=== PATIENT | female | born 1985 | race Caucasian/White ===

== ENCOUNTER 2021-11-28 19:10 | Emergency (ER) | payer OTHER, SELFPAY ==
[2021-11-28] VITALS (7 sets, daily range): BP systolic 115–141; BP diastolic 79–96; PULSE 85–126; RESP 14–16; TEMP 36.7; O2SAT 99–100; BMI 32.0
--- NOTE | 2021-11-28 20:11 | ED.ARRPALP ---
HPI - Arrhythmia/Palpitations General Chief Complaint: Unspecified Complaint, Adult Stated Complaint: SHORTNESS OF BREATH,HIGH HEART RATE Time Seen by Provider: 11/28/21 20:03 History of Present Illness HPI narrative: 36-year-old woman presenting to the emergency department with concern of rapid heart rate and headache. Does have a history of migraines and noted having had an aura this morning. Admittedly does have pretty bad headache right now. This evening was biking down to the [employer] and then climbed couple flights of stairs. Was sitting there and noted that her wearable beeped indicating her heart rate had been elevated over 120s in spite of being at rest. Around this time shows also noting herself to feel tightness in her chest and headache as well. No loss of sensation or focal weakness. No fever no cough or cold symptoms recently. No recent leg pain. Not actually with chest pain and the discomfort is not really pleuritic. Her heart rate has continued elevated on presentation to the emergency department. Initial EKG has been done by the time I it to this patient and noting sinus tachycardia 107. Do not see ST elevations or depressions/ischemic changes. She acknowledges that when she might be feeling is a panic attack but she never had 1 before. Seems to be fairly calm and believe she was at the time as well. Does not historically struggle with exercise intolerance. No family history of coagulopathy or dysrhythmias or sudden cardiac . Related Data Home Medications Medication Instructions Recorded Confirmed aspirin 81 mg capsule 81 mg PO QDAY 12/13/21 12/13/21 cetirizine 10 mg capsule (Zyrtec) 10 mg PO QDAY PRN 12/13/21 12/13/21 levonorgestrel 17.5 mcg/24 hrs 1 intrauterine ONCE 12/13/21 12/13/21 (5yrs) 19.5mg intrauterine device Previous Rx's Medication Instructions Recorded nortriptyline 10 mg capsule 30 mg PO QPM #270 caps 11/07/21 Allergies Allergy/AdvReac Type Severity Reaction Status Date / Time loratadine [From Claritin] AdvReac stomachache Verified 12/13/21 13:13 augmentin AdvReac Uncoded 12/13/21 13:13 Review of Systems Status of ROS: Reports: 10 or more systems reviewed and unremarkable except as noted in History and [facility] History Depression History of gestational hypertension History of pre-eclampsia History of spontaneous (2017) Hyperlipidemia Migraine with aura Obesity (BMI 30.0-34.9) Scleroderma Surgical History History of History of laparoscopic cholecystectomy (2012) Social History Narrative: . Master's degree education. Non smoker. Denies alcohol use or recreational drug use. No concerns with safety or abuse. Smoking Status: Never smoker How often do you have a drink containing alcohol: monthly or less AUDIT-C Alcohol total score: 1 Non-prescribed substance use: denies use Little interest or pleasure in doing things: not at all Feeling down, depressed, or hopeless: not at all Exam Narrative: Exam Narrative: A pleasant. NAD. Breathing easily. Cranial nerves 2-12 intact. Head is atraumatic. Extremities are well perfused. Moving all extremities without difficulty. Lungs are clear equal expansion excursion Cardiovascular initially with elevated heart rate. Regular rhythm no murmurs rubs or gallops. Skin is warm and dry Const: Vital Signs, click to edit/add: Vital Signs - 24 hr 11/28/21 19:58 11/28/21 23:40 11/28/21 22:00 Temperature 98.1 F Pulse Rate [Left P ulse Oximeter] 126 H 85 90 Respiratory Rate 16 14 14 Blood Pressure [Ri ght Upper Arm] 124/87 119/82 141/90 H Pulse Oximetry 99 99 100 Oxygen Delivery Me thod Room Air 11/28/21 22:20 11/28/21 22:40 11/28/21 23:00 Temperature Pulse Rate [Left P ulse Oximeter] 87 99 93 Respiratory Rate 14 14 14 Blood Pressure [Ri ght Upper Arm] 134/89 126/89 125/96 H Pulse Oximetry 99 99 100 Oxygen Delivery Me thod Room Air 11/28/21 23:20 11/28/21 23:40 11/29/21 00:00 Temperature Pulse Rate [Left P ulse Oximeter] 89 91 84 Respiratory Rate 14 14 14 Blood Pressure [Ri ght Upper Arm] 115/79 119/82 117/87 Pulse Oximetry 99 99 99 Oxygen Delivery Me thod Course Course Hospital Course: She would like treatment for her headache. Initiating IV fluids diphenhydramine and ketorolac Reevaluation(s) Reevaluation #1: Markedly improved and feels can return home. Vital Signs Vital signs: Initial Vital Signs Temperature 98.1 F 11/28/21 19:58 Temperature Source Temporal Artery Scan 11/28/21 19:58 Pulse Rate 126 H 11/28/21 19:58 Respiratory Rate 16 11/28/21 19:58 Blood Pressure 124/87 11/28/21 19:58 Blood Pressure Mean 99 11/28/21 19:58 Blood Pressure Position Sitting 11/28/21 19:58 Pulse Oximetry 99 11/28/21 19:58 Oxygen Delivery Method 11/28/21 19:58 Vital Signs Temperature 98.1 F 11/28/21 19:58 Pulse Rate 126 H 11/28/21 19:58 Respiratory Rate 16 11/28/21 19:58 Blood Pressure 124/87 11/28/21 19:58 Pulse Oximetry 99 11/28/21 19:58 Oxygen Delivery Method 11/28/21 19:58 Temperature 98.1 F 11/28/21 19:58 Pulse Rate 84 11/29/21 00:00 Respiratory Rate 14 11/29/21 00:00 Blood Pressure 117/87 11/29/21 00:00 Pulse Oximetry 99 11/29/21 00:00 Oxygen Delivery Method 11/28/21 22:20 MDM - Arrhythmia/Palpitations MDM Narrative Medical decision making narrative: Certainly could have been cardiac event. supraventricular tachycardia perhaps. No events during monitoring here. Medical Records Attestation: I reviewed the patient's medical records. Lab Data Attestation: I reviewed the patient's lab results. Labs: Lab Results 11/28/21 11/28/21 11/28/21 Range/Units 22:38 22:38 22:42 WBC 8.93 (4.50-11.00) K/uL RBC 4.88 (4.00-5.20) m/uL Hgb 14.7 (12.0-16.0) gm/dL Hct 44.9 (33.0-51.0) % MCV 92 (80-100) fL MCH 30 (26-34) pg MCHC 33 (32-36) gm/dL RDW Coeff of Timothy 11.9 (11.5-15.5) % Plt Count 238 (140-440) K/uL Neut % (Auto) 66.9 (42.0-72.0) % Lymph % (Auto) 24.7 (20-44) % Dade % (Auto) 6.4 (0.0-11.0) % Eos % (Auto) 1.3 (0.0-7.0) % Baso % (Auto) 0.4 (0.0-3.0) % Neut # (Auto) 5.96 (1.7-7.0) K/uL Lymph # (Auto) 2.21 (0.90-2.90) K/uL Dade # (Auto) 0.60 (0.00-0.90) K/UL Eos # (Auto) 0.12 (0.00-0.50) K/uL Baso # (Auto) 0.04 (0.00-0.30) K/uL Abs Immat Gran (auto) 0.03 (0.00-0.30) K/uL D-Dimer Quant (PE/DVT) < 0.27 (0.00-0.50) ug/ml Sodium (135-149) mmol/L Potassium (3.6-5.1) mmol/L Chloride (96-114) mmol/L Carbon Dioxide (20-32) mmol/L BUN (5-24) mg/dL Creatinine (0.5-1.5) mg/dL Estimated Creat Clear Estimated GFR ml/min Glucose (60-115) mg/dL Calcium (8.4-10.6) mg/dL Troponin I (0.01-0.04) ng/mL C-Reactive Protein (0.5-1.0) mg/dL NT-Pro-B Natriuret Pep (0-125) PG/mL POC Troponin I 0.00 L (0.01-0.04) ng/ml 11/28/21 Range/Units 22:42 WBC (4.50-11.00) K/uL RBC (4.00-5.20) m/uL Hgb (12.0-16.0) gm/dL Hct (33.0-51.0) % MCV (80-100) fL MCH (26-34) pg MCHC (32-36) gm/dL RDW Coeff of Timothy (11.5-15.5) % Plt Count (140-440) K/uL Neut % (Auto) (42.0-72.0) % Lymph % (Auto) (20-44) % Dade % (Auto) (0.0-11.0) % Eos % (Auto) (0.0-7.0) % Baso % (Auto) (0.0-3.0) % Neut # (Auto) (1.7-7.0) K/uL Lymph # (Auto) (0.90-2.90) K/uL Dade # (Auto) (0.00-0.90) K/UL Eos # (Auto) (0.00-0.50) K/uL Baso # (Auto) (0.00-0.30) K/uL Abs Immat Gran (auto) (0.00-0.30) K/uL D-Dimer Quant (PE/DVT) (0.00-0.50) ug/ml Sodium 141 (135-149) mmol/L Potassium 4.4 (3.6-5.1) mmol/L Chloride 106 (96-114) mmol/L Carbon Dioxide 29 (20-32) mmol/L BUN 13 (5-24) mg/dL Creatinine 0.7 (0.5-1.5) mg/dL Estimated Creat Clear 107.01 Estimated GFR 114 ml/min Glucose 84 (60-115) mg/dL Calcium 9.5 (8.4-10.6) mg/dL Troponin I < 0.01 L (0.01-0.04) ng/mL C-Reactive Protein < 0.5 L (0.5-1.0) mg/dL NT-Pro-B Natriuret Pep 32 (0-125) PG/mL POC Troponin I (0.01-0.04) ng/ml ECG Data Attestation: I personally reviewed and interpreted this ECG as follows: (Sinus tachycardia at a rate of 107) Discharge Plan Discharge Clinical Impression: Migraine with aura, Tachycardia Patient Disposition: Home w/ Parent or Adult Condition: Improved Additional Instructions: Continue to hydrate and exercise. Get regular and quality sleep. Follow-up for heart rate that appears to be in the 90s more often than not. Return otherwise for worsening lightheadedness, intensifying chest pain, increasing shortness of breath. Prescriptions: No Action levonorgestrel 17.5 mcg/24 hrs (5 yrs) 19.5 mg intrauterine device 1 intrauterine ONCE aspirin 81 mg capsule 81 mg PO QDAY Zyrtec 10 mg capsule 10 mg PO QDAY PRN nortriptyline 10 mg capsule 30 mg PO QPM Qty: 270 1RF Follow Up/Referrals: Janay Qureshi MD [Primary Care Provider] - Stand Alone Forms: [employer] Info Instructions
[2021-11-28 22:49] LABS: Basophils Absolute Auto 0.04 K/uL (0.00-0.30); Basophils Percent Auto 0.4 % (0.0-3.0); Eosinophils Absolute Auto 0.12 K/uL (0.00-0.50); Eosinophils Percent Auto 1.3 % (0.0-7.0); Hematocrit 44.9 % (33.0-51.0); Hemoglobin* 14.7 gm/dL (12.0-16.0); Immature Granulocytes Abs Auto 0.03 K/uL (0.00-0.30); Lymphocytes Absolute Auto 2.21 K/uL (0.90-2.90); Lymphocytes Percent Auto 24.7 % (20-44); Mean Corpuscular HGB Conc 33 gm/dL (32-36); Mean Corpuscular Hemoglobin 30 pg (26-34); Mean Corpuscular Volume 92 fL (80-100); Monocytes Percent Auto 6.4 % (0.0-11.0); Neutrophils Absolute Auto 5.96 K/uL (1.7-7.0); Neutrophils Percent Auto 66.9 % (42.0-72.0); Platelet Count* 238 K/uL (140-440); RDW Coefficient of Variation % 11.9 % (11.5-15.5); Red Blood Count 4.88 m/uL (4.00-5.20); White Blood Count* 8.93 K/uL (4.50-11.00)
[2021-11-28] MEDS: diphenhydrAMINE 50 MG/ML inj 25 MG IVP (22:50)
[2021-11-28] MEDS: KETOROLAC 30 MG/ML inj IVP (22:50)
[2021-11-28] MEDS: 0.9 % SODIUM CHLORIDE 1000 ml 1,000 ML IV (22:50)
[2021-11-28 22:51] LABS: Slide Review Reflex No
[2021-11-28 23:02] LABS: Chloride* 106 mmol/L (96-114); Potassium* 4.4 mmol/L (3.6-5.1); Sodium* 141 mmol/L (135-149)
[2021-11-28 23:05] LABS: Blood Urea Nitrogen* 13 mg/dL (5-24); Carbon Dioxide* 29 mmol/L (20-32); Creatinine* 0.7 mg/dL (0.5-1.5); Est. Creatinine Clearance* 107.01; Estimated Glomerular Filt Rate 114 ml/min; Glucose* 84 mg/dL (60-115)
[2021-11-28 23:06] LABS: Calcium* 9.5 mg/dL (8.4-10.6)
[2021-11-28 23:08] LABS: D Dimer Quantitative* < 0.27 ug/ml (0.00-0.50)
[2021-11-28 23:15] LABS: NT Pro B Type NatriureticPept* 32 PG/mL (0-125)
[2021-11-28 23:26] LABS: C Reactive Protein* < 0.5 mg/dL (0.5-1.0); Troponin I* < 0.01 ng/mL (0.01-0.04)
[2021-11-29] VITALS: BP 117/87; PULSE 84; RESP 14; O2SAT 99
== END 2021-11-29 00:10 | disposition home or self-care (01) ==
PROVIDERS: Emergency Provider Family Medicine; PCP Family Medicine
DX: G43.119 Migraine with aura, intractable, without status migrainosus (principal); R00.0 Tachycardia, unspecified
CPT/HCPCS: 36415; 80048; 83880; 84484; 85025; 85379; 86140; 93005; 96374; 96375; 99283; 99284; J1200; J1885; J7030

== ENCOUNTER 2021-12-18 09:32 | Outpatient (CLI) | payer OTHER, SELFPAY ==
[2021-12-18 12:44] LABS: Albumin* 4.6 g/dL (3.3-5.0)
[2021-12-18 12:47] LABS: Alanine Aminotransferase* 20 U/L (4-35); Alkaline Phosphatase* 104 U/L (40-150); Aspartate Amino Transferase* 20 U/L (12-35); Bilirubin Direct* 0.3 mg/dL (0.0-0.5); Bilirubin Total* 0.7 mg/dL (0.1-1.5); Cholesterol* 243 mg/dL (90-199); Total Protein* 7.3 g/dL (6.0-8.3)
[2021-12-18 12:48] LABS: HDL Cholesterol* 36 mg/dL (>=50); LDL Cholesterol Calculated 167 mg/dL (<100); Triglycerides* 199 mg/dL (40-149)
[2021-12-18 12:50] LABS: C Reactive Protein* 0.6 mg/dL (0.5-1.0)
[2021-12-18 12:53] LABS: Vitamin D 25 Hydroxy* 31 ng/mL (30-80)
[2021-12-18 13:11] LABS: Ferritin* 93.6 ng/mL (6.24-137.0)
[2021-12-18 22:35] LABS: Glucose* 97 mg/dL (60-115)
== END 2021-12-18 09:33 | disposition home or self-care (01) ==
PROVIDERS: Physician Assistant; PCP Family Medicine; Visit Provider Internal Medicine
DX: E78.5 Hyperlipidemia, unspecified (principal); R00.0 Tachycardia, unspecified; R52 Pain, unspecified; G43.109 Migraine with aura, not intractable, without status migrainosus
CPT/HCPCS: 80061; 80076; 82306; 82728; 82947; 84443; 86140

== ENCOUNTER 2023-05-23 07:50 | Outpatient (CLI) | payer BC, SELFPAY ==
--- OUTSIDE RECORDS SUMMARY | 2023-05-23 12:18 | XMS_ITS | Encounter Summary ---
Author Name Unknown Organization [place] Address [address] [place] [address] Care Team Providers Care Mechanical Adjuster Name Role Phone Susie Vogt MD Primary Care Provider + [phone] Devika Fleming MD Unavailable [phone] Devika Fleming MD Unavailable [phone] Encounter Details Date Type Department Care Team (Late st Contact Info) Description 04/10/2022 [facility] [place] Medical Advice [facility] Neurology Clinic [address]rd [place] [address] Devika Fleming MD [address] [place] [address] [id number] Social History Tobacco Use Types Packs/Day Years Used Date Smoking Tobacco: Never Smokeless Tobacco: Never Alcohol Use Standard Drinks/Week Comments Not Currently 0 (1 standard drink = 0.6 oz pur e alcohol) PHQ-2 Answer Date Recorded PHQ-2 Score 2 02/18/2022 Sex and Gender Information Value Date Recorded Sex Assigned at Female 02/16/2019 10:59 AM OBSTETRIC ANAESTHETIST Gender Identity Female 02/16/2019 10:59 AM OBSTETRIC ANAESTHETIST Sexual Orientation Straight 02/16/2019 10 :59 AM OBSTETRIC ANAESTHETIST documented as of this encounter Plan of Treatment Not on file documented as of this encounter Visit Diagnoses Not on filedocumented in this encounter Care Teams Mechanical Adjuster Relationship Specialty Start Date End Date Susie Vogt MD [facility] [address] [place] [address] PCP - General resources representative 12/29/18 Devika Fleming MD [address] [place] [address] Neurology 10/30/21 Devika Fleming MD [address] [place] [address] Assigned Neuroscience Provider 02/23/22 documented as of this encounter
--- OUTSIDE RECORDS SUMMARY | 2023-05-23 12:18 | XMS_ITS | Encounter Summary ---
Author Name Unknown Organization [place] Address [address] [place] [address] Care Team Providers Care Laborer Concrete Plant Name Role Phone Susie Vogt MD Primary Care Provider + [phone] Devika Fleming MD Unavailable [phone] Devika Fleming MD Unavailable [phone] Encounter Details Date Type Department Care Team (Late st Contact Info) Description 10/07/2021 [facility] Medical Advice Initial Department Lali Alonso Social History Tobacco Use Types Packs/Day Years Used Date Smoking Tobacco: Never Smokeless Tobacco: Never Alcohol Use Standard Drinks/Week Comments Not Currently 0 (1 standard drink = 0.6 oz pur e alcohol) PHQ-2 Answer Date Recorded PHQ-2 Score 2 02/22/2019 Sex and Gender Information Value Date Recorded Sex Assigned at Female 02/16/2019 10:59 AM INSURANCE JOB TITLES Gender Identity Female 02/16/2019 10:59 AM INSURANCE JOB TITLES Sexual Orientation Straight 02/16/2019 10 :59 AM INSURANCE JOB TITLES documented as of this encounter Plan of Treatment Not on file documented as of this encounter Visit Diagnoses Not on filedocumented in this encounter Care Teams Laborer Concrete Plant Relationship Specialty Start Date End Date Susie Vogt MD [facility] [address], [place] [address] PCP - General r programmer 12/29/18 Devika Fleming MD [address] [place] [address] Neurology 10/30/21 Devika Fleming MD [address] [place] [address] Assigned Neuroscience Provider 02/23/22 documented as of this encounter
--- OUTSIDE RECORDS SUMMARY | 2023-05-23 12:18 | XMS_ITS | Encounter Summary ---
Author Name Unknown Organization [place] Address [address] [place] [address] Care Team Providers Care Assistant Boiler Operator Name Role Phone Susie Vgot MD Primary Care Provider + [phone] Devika Fleming MD Unavailable [phone] Devika Fleming MD Unavailable [phone] Encounter Details Date Type Department Care Team (Late st Contact Info) Description 10/16/2020 [facility] [place] Medical Advice [facility] Neurology Clinic [address] [place] [address] Susi Gloria RN Social History Tobacco Use Types Packs/Day Years Used Date Smoking Tobacco: Never Smokeless Tobacco: Never Alcohol Use Standard Drinks/Week Comments Not Currently 0 (1 standard drink = 0.6 oz pur e alcohol) PHQ-2 Answer Date Recorded PHQ-2 Score 2 02/22/2019 Sex and Gender Information Value Date Recorded Sex Assigned at Female 02/16/2019 10:59 AM ASSET MANAGEMENT ANALYST Gender Identity Female 02/16/2019 10:59 AM ASSET MANAGEMENT ANALYST Sexual Orientation Straight 02/16/2019 10 :59 AM ASSET MANAGEMENT ANALYST documented as of this encounter Plan of Treatment Not on file documented as of this encounter Visit Diagnoses Not on filedocumented in this encounter Care Teams Assistant Boiler Operator Relationship Specialty Start Date End Date Susie Vogt MD [facility] [address] [place] [address] PCP - General dental claims processor 12/29/18 Devika Fleming MD [address] [place], [place] [id number] Neurology 10/30/21 Devika Fleming MD [address] [place] [address] [id number] Assigned Neuroscience Provider 02/23/22 documented as of this encounter
--- OUTSIDE RECORDS SUMMARY | 2023-05-23 12:18 | XMS_ITS | Referral Summary ---
Author Name Unknown Organization [place] Address [address] [place] [address] Care Team Providers Care Parish Visitor Name Role Phone Susie Vogt MD Primary Care Provider + [phone] Devika Fleming MD Unavailable [phone] Devika Fleming MD Unavailable [phone] Allergies Active Allergy Reactions Criticality Noted Date Comments Adhesive Tape Hives,Itching,Rash Low 02/22/2019 Amoxicillin-Pot Clavulanate Diarrhea,GI Disturbance,Nausea and Vomiting 12/03/2007 Buspirone Rash Low 08/30/2014 Liquid Adhesive Rash Low 10/06/2018 Loratadine Anxiety,Dizziness,Nausea Low 02/22/2019 Loratadine Anxiety Low 08/07/2006 Medications Medication Sig Dispensed Refills Start Date End Date Status nortriptyline (PAMELOR) 10 MG capsuleIndications:C hronic tension-type headache, intractable,Migraine with aura and without status migrainosus, not intractable Take 1 capsule (10 mg) by mouth At Bedtime Take 3 tabs at bedtime. 90 capsule 0 10/16/2020 Active propranolol ER (INDERAL LA) 80 MG 24 hr capsuleIndications:I ntractable chronic migraine without aura and without status migrainosus Take 1 capsule (80 mg) by mouth daily 30 capsule 11 02/18/2022 Active naratriptan (AMERGE) 2.5 MG tabletIndications:In tractable chronic migraine without aura and without status migrainosus Take 1 tablet (2.5 mg) by mouth at onset of headache for migraine May repeat in 4 hours. Max 2 tablets/24 hours. 18 tablet 11 02/18/2022 Active Active Problems Problem Noted Date Diagnosed Date Intractable chronic migraine without aura and without status migrainosus 02/18/2022 Migraine headache with aura 10/06/2018 PCOS (polycystic ovarian syndrome) 06/07/2016 Overview: On metformin, trying to conceive. Seeing Dr. Vogt. Major depressive disorder, r ecurrent, in full remission (H24) 11/09/2014 Allergic rhinitis 02/25/2008 Immunizations Name Administration Dates Next Due COVID-19 Monovalent 12+ (Pfizer 2021) 02/22/2021 COVID-19 Monovalent 18+ (Moderna) 06/29/2020, Social History Tobacco Use Types Packs/Day Years Used Date Smoking Tobacco: Never Smokeless Tobacco: Never Alcohol Use Standard Drinks/Week Comments Not Currently 0 (1 standard drink = 0.6 oz pur e alcohol) PHQ-2 Answer Date Recorded PHQ-2 Score 2 02/18/2022 Adolescent Education Answer Date Record ed Getting School Help Needed Not on file 12/27 Sex and Gender Information Value Date Recorded Sex Assigned at Female 02/16/2019 10:59 AM PROFESSOR OF VOICE Gender Identity Female 02/16/2019 10:59 AM PROFESSOR OF VOICE Sexual Orientation Straight 02/16/2019 10 :59 AM PROFESSOR OF VOICE Last Filed Vital Signs Vital Sign Reading Time Taken Comments Blood Pressure 123/83 02/22/2019 8:28 AM PROFESSOR OF VOICE Pulse 67 02/22/2019 8:28 AM PROFESSOR OF VOICE Temperature - - Respiratory Rate - - Oxygen Saturation - - Inhaled Oxygen Concentration - - Weight 104 kg (229 lb 4.8 oz) 02/22/2019 8:28 AM PROFESSOR OF VOICE Height 170.2 cm (5' 7) 02/22/2019 8:28 AM PROFESSOR OF VOICE Body Mass Index 35.91 02/22/2019 8:28 AM PROFESSOR OF VOICE Plan of Treatment Not on file Care Teams Parish Visitor Relationship Specialty Start Date End Date Susie Vogt MD [facility] [address] [place] [address] PCP - General cdl flatbed truck driver 12/29/18 Devika Fleming MD [address] [place] [address] [phone] Neurology 10/30/21 Devika Fleming MD [address] [place] [address] [phone] Assigned Neuroscience Provider 02/23/22
--- OUTSIDE RECORDS SUMMARY | 2023-05-23 12:18 | XMS_ITS | Clinical Summary ---
Author Name Unknown Organization [place] Address [address] [place] [address] Care Team Providers Care Commercial Appraiser Name Role Phone Susie Vogt MD Primary Care Provider + [phone] Devika Fleming MD Unavailable [phone] Devika Fleming MD Unavailable [phone] Allergies Active Allergy Reactions Criticality Noted Date [...] 2021) 02/22/2021 COVID-19 Monovalent 18+ (Moderna) 06/29/2020, Family History Medical History Relation Comments Depression Mother Relation Status Comments Mother Social History Tobacco Use Types Packs/Day Years [...] Sex Assigned at Female 02/16/2019 10:59 AM HOT STAMP OPERATOR Gender Identity Female 02/16/2019 10:59 AM HOT STAMP OPERATOR Sexual Orientation Straight 02/16/2019 10 :59 AM HOT STAMP OPERATOR Last Filed Vital Signs Vital Sign Reading Time Taken Comments Blood Pressure 123/83 02/22/2019 8:28 AM HOT STAMP OPERATOR Pulse 67 02/22/2019 8:28 AM HOT STAMP OPERATOR Temperature - - Respiratory Rate - - Oxygen Saturation - - Inhaled Oxygen Concentration - - Weight 104 kg (229 lb 4.8 oz) 02/22/2019 8:28 AM HOT STAMP OPERATOR Height 170.2 cm (5' 7) 02/22/2019 8:28 AM HOT STAMP OPERATOR Body Mass Index 35.91 02/22/2019 8:28 AM HOT STAMP OPERATOR Plan of Treatment Health Maintenance Due Date Last Done Comments ADVANCE CARE PLANNING 1984 ANNUAL REVIEW OF HM ORDERS 1984 DEPRESSION ACTION PLAN 1984 GLUCOSE 1984 PHQ-9 1984 YEARLY PREVENTIVE VISIT 1984 HIV SCREENING 1999 HEPATITIS C SCREENING 2002 PAP 2005 COVID-19 Vaccine ( season) 2022 02/22/2021, 02/22/2021, 06/29/2020, Additional history exists INFLUENZA VACCINE (#1) 2022 2, 02/14/2021, 02/21/2020, Additional history exists DTAP/TDAP/TD IMMUNIZATION (4 - Td or Tdap) 07/15/2028 07/15/2018, 03/08/2011, 07/27/1996 HEPATITIS B IMMUNIZATION Completed 999, 08/08/1998, 07/07/1998 MENINGITIS IMMUNIZATION Completed 02/10/2003 HPV IMMUNIZATION Aged Out No longer e ligible based on patient's age to complete this topic IPV IMMUNIZATION Aged Out No longer e ligible based on patient's age to complete this topic Pneumococcal Vaccine: Pediatrics (0 to 5 Years) and At-Risk Patients (6 to 64 Years) Aged Out No longer eligible based on patient's age to complete this topic RSV MONOCLONAL ANTIBODY Aged Out No l onger eligible based on patient's age to complete this topic Care Teams Commercial Appraiser Relationship Specialty Start Date End Date Susie Vogt MD [facility] [address] [place] [address] PCP - General dredge lever operator 12/29/18 Devika Fleming MD [address] [place] [address] Neurology 10/30/21 Devika Fleming MD [address] [place] [address] Assigned Neuroscience Provider 02/23/22
--- OUTSIDE RECORDS SUMMARY | 2023-05-23 12:18 | XMS_ITS | Encounter Summary ---
Author Name Unknown Organization [place] Address [address] [place] [address] Care Team Providers Care Gerontology Aide Name Role Phone Susie Vogt MD Primary Care Provider + [phone] Devika Fleming MD Unavailable [phone] Devika Fleming MD Unavailable [phone] Encounter Details Date Type Department Care Team (Late st Contact Info) Description 08/14/2022 [facility] [place] Medical Advice [facility] Neurology Clinic [address] [place] [address] Devika Fleming MD [address] [place] [address] [phone] Social History Tobacco Use Types Packs/Day Years Used Date Smoking Tobacco: Never Smokeless Tobacco: Never Alcohol Use Standard Drinks/Week Comments Not Currently 0 (1 standard drink = 0.6 oz pur e alcohol) PHQ-2 Answer Date Recorded PHQ-2 Score 2 02/18/2022 Sex and Gender Information Value Date Recorded Sex Assigned at Female 02/16/2019 10:59 AM LABORATORY TECH Gender Identity Female 02/16/2019 10:59 AM LABORATORY TECH Sexual Orientation Straight 02/16/2019 10 :59 AM LABORATORY TECH documented as of this encounter Plan of Treatment Not on file documented as of this encounter Visit Diagnoses Not on filedocumented in this encounter Care Teams Gerontology Aide Relationship Specialty Start Date End Date Susie Vogt MD [facility] [address], [place] [address] PCP - General sales and production manager 12/29/18 Devika Fleming MD [address] [place] [address] Neurology 10/30/21 Devika Fleming MD [address] [place] [address] Assigned Neuroscience Provider 02/23/22 documented as of this encounter
--- OUTSIDE RECORDS SUMMARY | 2023-05-23 12:18 | XMS_ITS | Encounter Summary ---
Author Name Unknown Organization [place] Address [address] [place] [address] Care Team Providers Care Business Support Professional Name Role Phone Susie Vogt MD Primary Care Provider + [phone] Devika Fleming MD Unavailable [phone] Devika Fleming MD Unavailable [phone] Encounter Details Date Type Department Care Team (Late st Contact Info) Description 04/24/2022 [facility] [place] Medical Advice [facility] Neurology Clinic [address] [place] [address] Devika Fleming MD [address] [place] [address] [id number] Social History Tobacco Use Types Packs/Day Years Used Date Smoking Tobacco: Never Smokeless Tobacco: Never Alcohol Use Standard Drinks/Week Comments Not Currently 0 (1 standard drink = 0.6 oz pur e alcohol) PHQ-2 Answer Date Recorded PHQ-2 Score 2 02/18/2022 Sex and Gender Information Value Date Recorded Sex Assigned at Female 02/16/2019 10:59 AM ICE CUTTER Gender Identity Female 02/16/2019 10:59 AM ICE CUTTER Sexual Orientation Straight 02/16/2019 10 :59 AM ICE CUTTER documented as of this encounter Plan of Treatment Not on file documented as of this encounter Visit Diagnoses Not on filedocumented in this encounter Care Teams Business Support Professional Relationship Specialty Start Date End Date Susie Vogt MD [facility] [address], [place] [address] PCP - General diamond powder technician 12/29/18 Devika Fleming MD [address] [place] [address] Neurology 10/30/21 Devika Fleming MD [address] [place] [address] Assigned Neuroscience Provider 02/23/22 documented as of this encounter
--- OUTSIDE RECORDS SUMMARY | 2023-05-23 12:19 | XMS_ITS | Encounter Summary ---
Author Name Unknown Organization [facility] Address [address] [place] [address] Care Team Providers Care Table Games Manager Name Role Phone Susie Vogt MD Primary Care Provider + [phone] Devika Fleming MD Unavailable +[phone] Devika Fleming MD Unavailable [phone] Reason for Visit * Reason Onset Date Comments Refill Request 10/09/2020 Encounter Details Date Type Department Care Team (Late st Contact Info) Description 10/09/2020 Refill M [facility] [address] [address] Lali Orr MD [address] [place] [address] [id number] Refill Request Social History Tobacco Use Types Packs/Day Years Used Date Smoking Tobacco: Never Smokeless Tobacco: Never Alcohol Use Standard Drinks/Week Comments Not Currently 0 (1 standard drink = 0.6 oz pur e alcohol) PHQ-2 Answer Date Recorded PHQ-2 Score 2 02/22/2019 Sex and Gender Information Value Date Recorded Sex Assigned at Female 02/16/2019 10:59 AM LOG BUYER Gender Identity Female 02/16/2019 10:59 AM LOG BUYER Sexual Orientation Straight 02/16/2019 10 :59 AM LOG BUYER documented as of this encounter Miscellaneous Notes * Telephone Encounter - Sara Stokes CMA - 10/09/2020 8:17 AM CDT Rx Authorization: ??? Requested Medication/ Dose nortriptyline (PAMELOR) 10 MG capsule ??? Date last refill ordered: 08/23/20 ??? Quantity ordered: 90 ??? # refills: 0 ??? Date of last clinic visit with ordering provider: 02/23/19 ??? Date of next clinic visit with ordering provider: ??? All pertinent protocol data (lab date/result): ??? Include pertinent information from patients message: documented in this encounter Plan of Treatment Not on file documented as of this encounter Visit Diagnoses Diagnosis Chronic tension-type headache, intractable Chronic tension type headache Migraine with aura and without status migrainosus, not intractable Migraine with aura, without mention of intractable migraine without mention of status migrainosus documented in this encounter Care Teams Table Games Manager Relationship Specialty Start Date End Date Susie Vogt MD [facility] [facility] [address] [address] [address] PCP - General hand mold maker 12/29/18 Devika Fleming MD [address] [place] [address] Neurology 10/30/21 Devika Fleming MD [address] [place] [address] Assigned Neuroscience Provider 02/23/22 documented as of this encounter
--- OUTSIDE RECORDS SUMMARY | 2023-05-23 12:19 | XMS_ITS | Encounter Summary ---
Author Name Unknown Organization [facility] Address [address] [place] [address] Care Team Providers Care Plant Controller Name Role Phone Susie Vogt MD Primary Care Provider + [phone] Devika Fleming MD Unavailable [phone] Devika Fleming MD Unavailable [phone] Reason for Visit * Reason Onset Date Comments Refill Request 10/07/2020 Encounter Details Date Type Department Care Team (Late st Contact Info) Description 10/07/2020 MyC Refill [facility] Neurology [address] [address] Lali Orr MD [address] [place] [address] [id number] Refill Request Social History Tobacco Use Types Packs/Day Years Used Date Smoking Tobacco: Never Smokeless Tobacco: Never Alcohol Use Standard Drinks/Week Comments Not Currently 0 (1 standard drink = 0.6 oz pur e alcohol) PHQ-2 Answer Date Recorded PHQ-2 Score 2 02/22/2019 Sex and Gender Information Value Date Recorded Sex Assigned at Female 02/16/2019 10:59 AM TECHNICAL SUPPORT PROFESSIONAL Gender Identity Female 02/16/2019 10:59 AM TECHNICAL SUPPORT PROFESSIONAL Sexual Orientation Straight 02/16/2019 10 :59 AM TECHNICAL SUPPORT PROFESSIONAL documented as of this encounter Plan of Treatment Not on file documented as of this encounter Visit Diagnoses Diagnosis Chronic tension-type headache, intractable Chronic tension type headache Migraine with aura and without status migrainosus, not intractable Migraine with aura, without mention of intractable migraine without mention of status migrainosus documented in this encounter Care Teams Plant Controller Relationship Specialty Start Date End Date Susie Vogt MD [facility] [address] [place] [address] PCP - General hospital medicine director 12/29/18 Devika Fleming MD [address] [place] [address] Neurology 10/30/21 Devika Fleming MD [address] [place] [address] Assigned Neuroscience Provider 02/23/22 documented as of this encounter
--- OUTSIDE RECORDS SUMMARY | 2023-05-23 12:19 | XMS_ITS | Encounter Summary ---
Author Name Unknown Organization [facility] Address [address] [place] [address] Care Team Providers Care Insurance Salesman Name Role Phone Susie Vogt MD Primary Care Provider + [phone] Devika Fleming MD Unavailable [phone] Devika Fleming MD Unavailable [phone] Devika Fleming MD Unavailable [phone] Reason for Visit * Reason Onset Date Comments Refill Request 07/17/2019 Encounter Details Date Type Department Care Team (Late st Contact Info) Description 07/17/2019 Lianne Burns [facility] Neurology [address] [place] [address] Devika Fleming MD [address] [place] [address] Refill Request Social History Tobacco Use Types Packs/Day Years Used Date Smoking Tobacco: Never Smokeless Tobacco: Never Alcohol Use Standard Drinks/Week Comments Not Currently 0 (1 standard drink = 0.6 oz pur e alcohol) PHQ-2 Answer Date Recorded PHQ-2 Score 2 02/22/2019 Sex and Gender Information Value Date Recorded Sex Assigned at Female 02/16/2019 10:59 AM CIGAR SORTER Gender Identity Female 02/16/2019 10:59 AM CIGAR SORTER Sexual Orientation Straight 02/16/2019 10 :59 AM CIGAR SORTER documented as of this encounter Plan of Treatment Not on file documented as of this encounter Visit Diagnoses Diagnosis Chronic tension-type headache, intractable Chronic tension type headache Migraine with aura and without status migrainosus, not intractable Migraine with aura, without mention of intractable migraine without mention of status migrainosus documented in this encounter Care Teams Insurance Salesman Relationship Specialty Start Date End Date Susie Vogt MD [facility] [address] [place] [address] PCP - General sustainable landscape architect 12/29/18 Devika Fleming MD [address] [place] [address] Assigned Neuroscience Provider 01/28/20 08/26/20 Devika Fleming MD [address] [place] [address] Neurology 10/30/21 Devika Fleming MD [address] [place] [address] Assigned Neuroscience Provider 02/23/22 documented as of this encounter
--- OUTSIDE RECORDS SUMMARY | 2023-05-23 12:19 | XMS_ITS | Clinical Summary ---
Author Name Unknown Organization [facility] Address [address] [place] [address] Care Team Providers Care Office Runner Name Role Phone No Primary/Referring, Phy Primary Care Provider Unavailable Source Comments You are receiving this document as you are listed as the primary care provider,follow-up provider, or the patient has been referred to you for consultation.This is in compliance with the Medicare and[facility] Cent[facility] EHR Incentive Program,which states Providers who transition their patient to another setting of careor provider of care or refers their patient to another provider of care shouldprovide summary care record for each transition of care or referral. [facility] Allergies Active Allergy Reactions Criticality Noted Date Comments Amoxicillin-Pot Clavulanate Nausea And Vomiting 03/11/2016 Loratadine Other, see comments 03/11/2016 Hallucinations and panic attack Medications Medication Sig Dispensed Refills Start Date End Date Status cefuroxime (CEFTIN) 500 MG tabletIndications:Other acute nonsuppurative otitis media of right ear, recurrence not specified Take 1 Tab by mouth two times a day. 20 Tab 0 03/11/2016 Active Active Problems No known active problems Family History Medical History Relation Name Comments Depression Mother Cancer, Ovary Maternal Grandmother Relation Name Status Comments Mother Maternal Grandmother Social History Tobacco Use Types Packs/Day Years Used Date Smoking Tobacco: Never Sex and Gender Information Value Date Recorded Sex Assigned at Not on file Gender Identity Not on file Sexual Orientation Not on file Last Filed Vital Signs Vital Sign Reading Time Taken Comments Blood Pressure 115/90 03/11/2016 8:45 PM TRANSPORTATION DIRECTOR Pulse 87 03/11/2016 8:45 PM TRANSPORTATION DIRECTOR Temperature 36.4 ??C (97.5 ??F) 03/11/2016 8:44 PM CS T Respiratory Rate 22 03/11/2016 8:44 PM TRANSPORTATION DIRECTOR Oxygen Saturation 96% 03/11/2016 8:44 PM TRANSPORTATION DIRECTOR Inhaled Oxygen Concentration - - Weight 107 kg (236 lb) 03/11/2016 8:44 PM TRANSPORTATION DIRECTOR Height 168.9 cm (5' 6.5) 03/11/2016 8:44 PM TRANSPORTATION DIRECTOR Body Mass Index 37.52 03/11/2016 8:44 PM TRANSPORTATION DIRECTOR Plan of Treatment Health Maintenance Due Date Last Done Comments Cervical Cancer Screening Due 1984 Hep C Screening (Preventive Services) 1984 HIV Screening (Preventive Services) 2000 Adult Preventive Visit 2002 DTaP/Tdap/Td (1 - Tdap) 2003 HepB (1) 2003 COVID-19 Vaccine ( - 2022-2 4 season) 2022 Influenza (#1) 2022 04/07/2018 Zoster/Shingles (1 of 2) 2034 HPV Vaccine Aged Out No longer eligi ble based on patient's age to complete this topic HepA Aged Out No longer eligi ble based on patient's age to complete this topic Hib Aged Out No longer eligi ble based on patient's age to complete this topic IPV (Polio) Aged Out No longer eligi ble based on patient's age to complete this topic MCV4 Aged Out No longer eligi ble based on patient's age to complete this topic Pneumococcal Aged Out No longer eligi ble based on patient's age to complete this topic Care Teams Office Runner Relationship Specialty Start Date End Date No Primary/Referring, Phy PCP - General 03/11/16
--- OUTSIDE RECORDS SUMMARY | 2023-05-23 12:19 | XMS_ITS | Encounter Summary ---
Author Name Unknown Organization [facility] Address [address] [place] [address] Care Team Providers Care Didactic Program In Dietetics Director Name Role Phone Susie Vogt MD Primary Care Provider + [phone] Devika Fleming MD Unavailable [phone] Devika Fleming MD Unavailable [phone] Reason for Visit * Reason Onset Date Comments Refill Request 10/12/2020 Encounter Details Date Type Department Care Team (Late st Contact Info) Description 10/12/2020 MyC Refill M [facility] Neurology [address] [address] Lali Orr MD [address] [place] [address] [phone] Refill Request Social History Tobacco Use Types Packs/Day Years Used Date Smoking Tobacco: Never Smokeless Tobacco: Never Alcohol Use Standard Drinks/Week Comments Not Currently 0 (1 standard drink = 0.6 oz pur e alcohol) PHQ-2 Answer Date Recorded PHQ-2 Score 2 02/22/2019 Sex and Gender Information Value Date Recorded Sex Assigned at Female 02/16/2019 10:59 AM SALVAGE DETERMINER Gender Identity Female 02/16/2019 10:59 AM SALVAGE DETERMINER Sexual Orientation Straight 02/16/2019 10 :59 AM SALVAGE DETERMINER documented as of this encounter Plan of Treatment Not on file documented as of this encounter Visit Diagnoses Diagnosis Chronic tension-type headache, intractable Chronic tension type headache Migraine with aura and without status migrainosus, not intractable Migraine with aura, without mention of intractable migraine without mention of status migrainosus documented in this encounter Care Teams Didactic Program In Dietetics Director Relationship Specialty Start Date End Date Susie Vogt MD [facility] [address] [place] [address] PCP - General optical engineering manager 12/29/18 Devika Fleming MD [address] [place] [address] Neurology 10/30/21 Devika Fleming MD [address] [place] [address] Assigned Neuroscience Provider 02/23/22 documented as of this encounter
--- OUTSIDE RECORDS SUMMARY | 2023-05-23 12:19 | XMS_ITS | Encounter Summary ---
Author Name Unknown Organization [facility] Address [address] [place] [address] Care Team Providers Care Medical Record Transcriber Name Role Phone Susie Vogt MD Primary Care Provider + [phone] Devika Fleming MD Unavailable [phone] Devika Fleming MD Unavailable [phone] Devika Fleming MD Unavailable [phone] Encounter Details Date Type Department Care Team (Late st Contact Info) Description 06/02/2019 [facility] Medical Advice [facility] Neurology [address] [place] [address] Devika Fleming MD [address] [place] [address] Social History Tobacco Use Types Packs/Day Years Used Date Smoking Tobacco: Never Smokeless Tobacco: Never Alcohol Use Standard Drinks/Week Comments Not Currently 0 (1 standard drink = 0.6 oz pur e alcohol) PHQ-2 Answer Date Recorded PHQ-2 Score 2 02/22/2019 Sex and Gender Information Value Date Recorded Sex Assigned at Female 02/16/2019 10:59 AM FLAGMAN Gender Identity Female 02/16/2019 10:59 AM FLAGMAN Sexual Orientation Straight 02/16/2019 10 :59 AM FLAGMAN documented as of this encounter Plan of Treatment Not on file documented as of this encounter Visit Diagnoses Not on filedocumented in this encounter Care Teams Medical Record Transcriber Relationship Specialty Start Date End Date Susie Vogt MD [facility] [address] [place] [address] PCP - General stain sprayer 12/29/18 Devika Fleming MD [address] [place] [address] Assigned Neuroscience Provider 01/28/20 08/26/20 Deviak Fleming MD [address] [place] [address] Neurology 10/30/21 Devika Fleming MD [address] [place] [address] Assigned Neuroscience Provider 02/23/22 documented as of this encounter
--- OUTSIDE RECORDS SUMMARY | 2023-05-23 12:19 | XMS_ITS | Encounter Summary ---
Author Name Unknown Organization [facility] Address [address] [place] [address] Care Team Providers Care Refractive Surgeon Name Role Phone Susie Vogt MD Primary Care Provider + [phone] Devika Fleming MD Unavailable [phone] Devika Fleming MD Unavailable [phone] Devika Fleming MD Unavailable [phone] Reason for Visit * Reason Onset Date Comments Refill Request 04/07/2020 Encounter Details Date Type Department Care Team (Late st Contact Info) Description 04/07/2020 Lianne Burns [facility] Neurology [address] [address] Lali Orr MD [address] [place] [address] Refill Request Social History Tobacco Use Types Packs/Day Years Used Date Smoking Tobacco: Never Smokeless Tobacco: Never Alcohol Use Standard Drinks/Week Comments Not Currently 0 (1 standard drink = 0.6 oz pur e alcohol) PHQ-2 Answer Date Recorded PHQ-2 Score 2 02/22/2019 Sex and Gender Information Value Date Recorded Sex Assigned at Female 02/16/2019 10:59 AM BENEFITS SALES CONSULTANT Gender Identity Female 02/16/2019 10:59 AM BENEFITS SALES CONSULTANT Sexual Orientation Straight 02/16/2019 10 :59 AM BENEFITS SALES CONSULTANT documented as of this encounter Miscellaneous Notes * Telephone Encounter - Jo Parson CMA - 04/10/2020 8:53 AM BENEFITS SALES CONSULTANT Rx Authorization: ??? Requested Medication/ Dose: Nortriptyline 10MG caps ??? Date last refill ordered: 02/21/20 ??? Quantity ordered: 90 caps ??? # refills: ??? Date of last clinic visit with ordering provider: 02/22/19 ??? Date of next clinic visit with ordering provider: F/U 1 year ??? All pertinent protocol data (lab date/result): ??? Include pertinent information from patients message: FITS SALES CONSULTANT documented in this encounter Plan of Treatment Not on file documented as of this encounter Visit Diagnoses Diagnosis Chronic tension-type headache, intractable Chronic tension type headache Migraine with aura and without status migrainosus, not intractable Migraine with aura, without mention of intractable migraine without mention of status migrainosus documented in this encounter Care Teams Refractive Surgeon Relationship Specialty Start Date End Date Susie Vogt MD [facility] [address], [place] [address] PCP - General chair pad maker 12/29/18 Devika Fleming MD [address] [place] [address] Assigned Neuroscience Provider 01/28/20 08/26/20 Devika Fleming MD [address] [place] [address] Neurology 10/30/21 Devika Fleming MD [address] [place] [address] Assigned Neuroscience Provider 02/23/22 documented as of this encounter
--- OUTSIDE RECORDS SUMMARY | 2023-05-23 12:19 | XMS_ITS | Encounter Summary ---
Author Name Unknown Organization [facility] Address [address] [place] [address] Care Team Providers Care Pharmacy Services Representative Name Role Phone Susie Vogt MD Primary Care Provider + [phone] Devika Fleming MD Unavailable [phone] Devika Fleming MD Unavailable [phone] Devika Fleming MD Unavailable [phone] Reason for Visit * Reason Onset Date Comments Clinic Care Coordination - Initial 01/07/[address] Fleming 02/22/2019 Encounter Details Date Type Department Care Team (Late st Contact Info) Description 01/07/2019 Telephone [facility] Neurology [address] [address] Devika Fleming MD [address] [place] [address] Clinic Care Coordination - Initial (Records for appointment with Dr. Fleming 02/22/2019) Social History Tobacco Use Types Packs/Day Years Used Date Smoking Tobacco: Never Assessed Sex and Gender Information Value Date Recorded Sex Assigned at Female 02/16/2019 10:59 AM TREASURY DIRECTOR Gender Identity Female 02/16/2019 10:59 AM TREASURY DIRECTOR Sexual Orientation Straight 02/16/2019 10 :59 AM TREASURY DIRECTOR documented as of this encounter Miscellaneous Notes * Telephone Encounter - Kevin Lancaster MA - 01/07/2019 7:57 AM CDT LVM for patient asking her to get records faxed to us ALIE for anywhere she has been treated for her Headaches in the past for her appointment with Dr. Fleming on 02/22/2019. Shabbir Lancaster RMA/CSS documented in this encounter Plan of Treatment Not on file documented as of this encounter Visit Diagnoses Not on filedocumented in this encounter Care Teams Pharmacy Services Representative Relationship Specialty Start Date End Date Susie Vogt MD [facility] [address] [place] [address] PCP - General retail cosmetics sales counter manager 12/29/18 Devika Flmeing MD [address] [place] [address] Assigned Neuroscience Provider 01/28/20 08/26/20 Devika Fleming MD [address] [place] [address] Neurology 10/30/21 Devika Fleming MD [address] [place] [address] Assigned Neuroscience Provider 02/23/22 documented as of this encounter
--- OUTSIDE RECORDS SUMMARY | 2023-05-23 12:19 | XMS_ITS | Clinical Summary ---
Author Name Unknown Organization [employer] Address [place], [place] [address] Care Team Providers Care Cost Recorder Name Role Phone Janet Jones MD Primary Care Prov ider Allergies Active Allergy Reactions Criticality Noted Date Comments Adhesive Rash 01/27/2023 Amoxicillin-Pot Clavulanate Vomiting 12/03/19 08 Buspirone Hcl Rash 08/30/2014 Loratadine Anxiety 08/07/2006 Medications Medication Sig Dispensed Refills Start Date End Date Status cetirizine (ZYRTEC) 10 mg tablet Take 1 tablet by mouth once daily. 0 08/30/2014 Active naltrexone 4.5 mg cap Take 3 mg by mouth once daily. 0 12/30/2022 Active aspirin chewable 81 mg chewable tablet Chew 81 mg by mouth once daily. 0 Active levonorgestrel (Kyleena) 17.5 mcg/24 hrs (5 yrs) 19.5 mg intrauterine device (IUD) 0 10/28/2022 Active cimetidine (TAGAMET ORAL) Take 200 mg by mouth two times daily. 0 Active riboflavin, vitamin B2, (VITAMIN B2) 100 mg tablet Take 100 mg by mouth once daily. 0 Active magnesium oxide 400 mg magnesium tab Take by mouth. 0 Active quercetin 500 mg cap Take 500 mg by mouth once daily. 0 Active cholecalciferol, Vitamin D3, (Vitamin D-3) 5,000 unit tab tablet Take 5,000 units by mouth once daily. 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 Seeing Dr. Vogt. Major depressive disorder, recurrent, in full re mission 11/09/2014 Vitamin D deficiency 03/12/2010 Allergic rhinitis, cause unspecified 02/25/2008 Resolved Problems Problem Noted Date Diagnosed Date Resolved Date MAJOR DEPR, RECURR, PARTIAL REMISSION 10/08/2007 11/09/2014 Encounters Date Type Department Care Team Description 04/21/2023 1:50 PM BED LABORER Office Visit [facility] [address] [place] [address] Janet Jones MD Physical (no pap will have with DEGREE CLERK on 05/05); Results (new dx of Ehler's-Danlos, mast cell activation, and POTS-discuss and manage); Hip Pain/problem (right voj-btdymbtlxng-jksr bothersome feels like its out of socket and can't walk) 04/21/2023 Travel from Last 3 Months Immunizations Name Administration Dates Next Due COVID-19 vaccine (Moderna 100mcg/0.5mL) MIKY ANDERSEN 06/29/2020,05/31/2020 Hepatitis B (Peds) 02/13/1999,08/08/1998, 999 Influenza, IIV4 01/27/2023, 2,02/14/2021,02/20,02/24/2019,02/23/2018 MMR 07/27/1996 Meningococcal Vaccine (Menactra) 02/10/2003 Td (Age >=7 Years) 07/27/1996 Tdap 07/15/2018,03/08/2011 Family History Medical History Relation Name Comments Unknown Father Psychiatric illness Maternal Aunt depress ion Cancer Maternal Grandmother cervica l? Psychiatric illness Maternal Uncle depres kerwin Hyperlipidemia Mother Hypertension Mother Psychiatric illness Mother mental i llness/depression Relation Name Status Comments Father Maternal Aunt Maternal Grandmother Maternal Uncle Mother Social History Tobacco Use Types Packs/Day Years Used Date Smoking Tobacco: Never Smokeless Tobacco: Never Tobacco Cessation:Counseling Given: Yes Alcohol Use Standard Drinks/Week Comments No 0 (1 standard drink = 0.6 oz pur e alcohol) PHQ-2 Answer Date Recorded PHQ-2 TOTAL SCORE 1 01/27/2023 Social Connections Answer Date Recorded Frequency of Communication with Friends and Fami ly 0 01/27/2023 Financial Resource Strain Answer Date R ecorded Difficulty of Paying Living Expenses 3 01/27/2023 Difficulty of Paying Living Expenses Not on file 01/27/2023 Food Insecurity Answer Date Recorded Worried About Running Out of Food in the Last Ye ar 1 01/27/2023 Transportation Needs Answer Date Record ed Lack of Transportation (Medical) 1 01/27/2023 Housing Stability Answer Date Recorded Unable to Pay for Housing in the Last Year 1 01/27/2023 Sex and Gender Information Value Date Recorded Sex Assigned at Not on file Gender Identity Not on file Sexual Orientation Not on file Obstetrics History Para Term AB IAB SAB Ectopic Multiple Livin g Live Births 1 1 1 Date Outcome GA Total Labor Labor/2nd/3rd Weight Sex Delivery Anes PTL Hanh A1 A5 Name Cl in Last Filed Vital Signs Vital Sign Reading Time Taken Comments Blood Pressure 102/64 04/21/2023 2:08 PM BED LABORER Pulse 96 04/21/2023 2:08 PM BED LABORER Temperature 36.4 ??C (97.6 ??F) 05/12/2017 3:29 PM CS T Respiratory Rate 16 07/17/2018 12:1 2 PM CDT Oxygen Saturation 100% 04/21/2023 2:08 PM BED LABORER Inhaled Oxygen Concentration - - Weight 108.1 kg (238 lb 6.4 oz) 04/21/2023 2:08 PM BED LABORER Height 170 cm (5' 6.93) 04/21/2023 2:08 PM BED LABORER Body Mass Index 37.42 04/21/2023 2:08 PM BED LABORER Plan of Treatment Health Maintenance Due Date Last Done Comments HIV for age 15-65 1999 Hepatitis C screening for age 18-79 2002 Pap test for age 21-65 10/14/2022 0, 10/15/2019, 06/07/2016, Additional history exists COVID-19 vaccine series ( season) 2022 02/22/2021, 02/22/2021, 06/29/2020, Additional history exists Depression screening for age 12+ 01/28/2024 01/27/2023, 06/07/2016, 09/27/2015, Additional history exists BMI (ht and wt on same day) for age 18+ 04/21/2024 04/21/2023, 01/27/2023, 05/12/2017, Additional history exists Tetanus booster 07/15/2028 07/15/2018, 05/2010, 07/27/1996 Tdap Completed 07/15/2018, 03/08/2011 Influenza for age 9-49 Completed , 02/05/2022, 02/14/2021, Additional history exists Pneumococcal series for age 6-64 Aged Out No longer eligible based on patient's age to complete this topic Care Teams Cost Recorder Relationship Specialty Start Date End Date Janet Jones MD [facility] [place] [address] PCP - General Family Practice 04/21/23
== END 2023-05-23 07:51 | disposition home or self-care (01) ==
LOC: NFLDREF 12:17
PROVIDERS: PCP Family Medicine; Referring Provider Family Medicine; Visit Provider Obstetrics & Gynecology
DX: Z01.419 Encounter for gynecological examination (general) (routine) without abnormal findings (principal); Z13.6 Encounter for screening for cardiovascular disorders; Z13.1 Encounter for screening for diabetes mellitus
CPT/HCPCS: 80061; 82947

== ENCOUNTER 2023-05-29 19:36 | Emergency (ER) | payer BC, SELFPAY ==
[2023-05-29 19:41] VITALS: BP 152/92; PULSE 103; RESP 18; TEMP 36.4; O2SAT 100; BMI 37.6
--- NOTE | 2023-05-29 19:59 | ED.GENADULT ---
HPI - General Adult General Date Seen: 05/29/23 Chief complaint: Headache/Migraine Stated complaint: migraine Time Seen by Provider: 05/29/23 19:51 Source: patient, RN notes reviewed and old records reviewed Mode of arrival: ambulatory Limitations: no limitations History of Present Illness HPI narrative: Patient is a 38-year-old woman who presents for evaluation and management of migraine headache. She does have a long history of migraine headaches, which she says have been actually reasonably well managed of late on naltrexone. She is down to about 1 headache a month. Normally, she is able to take a combination of a sports drink, aspirin Tylenol and Benadryl to abort her headaches. However this headache has been resistant. Is otherwise identical to prior migraines, holocranial associated with photophobia, nausea. No recent fevers, head trauma, vomiting, rashes or other complaints. She has occasionally had to come to the ER for therapy for headache and says she does very well with fluids. Related Data Home Medications Medication Instructions Recorded Confirmed aspirin 81 mg capsule 81 mg PO QDAY 12/13/21 05/05/23 levonorgestrel 17.5 mcg/24 hrs 1 intrauterine ONCE 12/13/21 05/05/23 (5yrs) 19.5mg intrauterine device B.coagulans 2 billion cap PO 05/05/23 05/05/23 cell-digestive enzymes combo no.10 capsule (Digestive Advantage Probiotics Plus Gas) cetirizine 10 mg capsule (Zyrtec) 10 mg PO TID PRN 05/05/23 05/05/23 cholecalciferol (vitamin D3) 125 125 mcg PO QDAY 05/05/23 05/05/23 mcg (5,000 unit) capsule cimetidine 200 mg tablet 200 mg PO BID 05/05/23 05/05/23 magnesium citrate 100 mg capsule 400 mg PO QDAY 05/05/23 05/05/23 naltrexone 4.5 mg capsule mg PO QDAY 05/05/23 05/05/23 quercetin 500 mg capsule mg PO QDAY 05/05/23 05/05/23 riboflavin (vitamin B2) 100 mg 100 mg PO QDAY 05/05/23 05/05/23 tablet Previous Rx's Medication Instructions Recorded ondansetron HCl 4 mg tablet 4 mg PO Q8H #30 tabs 12/18/21 norethindrone (contraceptive) 0.35 0.35 mg PO QDAY #84 tabs 05/27/23 mg tablet Allergies Allergy/AdvReac Type Severity Reaction Status Date / Time adhesive Allergy Intermediate blister, Verified 05/05/23 09:24 itching loratadine [From Claritin] AdvReac stomachache Verified 05/05/23 09:24 Clavulanate Allergy Mild stomach Uncoded 05/05/23 09:24 problems augmentin AdvReac Uncoded 05/05/23 09:24 Review of Systems Status of ROS: Reports: 6 or more systems reviewed and unremarkable except as noted in History and below [facility] Medical History Migraine with aura ?G43.109 - Migraine with aura, not intractable, without status migrainosus (ICD-10) History of spontaneous (2016) ?Z87.59 - Personal history of other complications of , childbirth and the puerperium (ICD-10) History of pre-eclampsia ?Z87.59 - Personal history of other complications of , childbirth and the puerperium (ICD-10) History of gestational hypertension ?Z87.59 - Personal history of other complications of , childbirth and the puerperium (ICD-10) Surgical History History of laparoscopic cholecystectomy (01/2013) ?Z90.49 - Acquired absence of other specified parts of digestive tract (ICD-10) History of ?Z98.891 - History of uterine scar from previous surgery (ICD-10) Family History Mother Heart disease High blood pressure Depression Maternal Grandmother Breast cancer Ovarian cancer Maternal Grandfather Stroke Social History Narrative: . Master's degree education. Non smoker. Denies alcohol use or recreational drug use. No concerns with safety or abuse. What is your current living situation?: I presently have a place to live Problems where you live: no known problems In the past 12 months, utilities in danger of being shut off: no In past 12 months, lack of transportation kept you from medical appts, meetings, work, or getting things needed for daily living: no In the past 12 mos, have been you worried that your food would run out before you had money to buy more?: never true In the past 12 mos, the food you bought just didn't last and you didn't have money to buy more?: often true Smoking Status: Never smoker How often do you have a drink containing alcohol: monthly or less AUDIT-C Alcohol total score: 1 Non-prescribed substance use: denies use How often does anyone, including family, friends and others, physically hurt you: never How often does anyone, including family, friends and others, insult or talk down to you: never How often does anyone, including family, friends and others, threaten you with harm: never How often does anyone, including family, friends and others, scream or curse at you: never Little interest or pleasure in doing things: not at all Feeling down, depressed, or hopeless: more than half the days Do you think of yourself as: straight/heterosexual Gender Identity: female Are you currently sexually active: Yes Exam Narrative: Exam Narrative: Vital signs as noted above. In general, an alert, well-appearing patient. Head: Normocephalic, atraumatic. Eyes: Pupils are equal reactive. Extraocular movements are full. Conjunctivae are normal. ENT: Mucous membranes are moist. Neck: Supple without lymphadenopathy. Heart: Regular rate and rhythm. No murmur or rub. Lungs: Clear bilaterally. No increased work of breathing, crackles or wheezes. Neurologic: Patient is alert and oriented to person and place. Speech is fluent. Face is symmetric. Moves all extremities equally. Affect: Normal. Skin: Warm and dry. Well perfused. Const: Vital Signs, click to edit/add: Vital Signs - 24 hr 05/29/23 19:41 Temperature 97.6 F Pulse Rate [Pulse Oximeter] 103 H Respiratory Rate 18 Blood Pressure [Ri ght Upper Arm] 152/92 H Pulse Oximetry 100 Oxygen Delivery Me thod Room Air Documenting provider has reviewed patient's vital signs: yes Course Course ED Course: Patient presents with headache typical of her migraines, not responding to her usual home regimen. No red flags suggesting need for additional workup at this time. Will order Benadryl, Toradol, Zofran and a L of normal saline for symptomatic management. Improved with treatment. Discharge home, return as needed. Vital Signs Vital signs: Initial Vital Signs Temperature 97.6 F 05/29/23 19:41 Temperature Source Temporal Artery Scan 05/29/23 19:41 Pulse Rate 103 H 05/29/23 19:41 Pulse Rhythm Regular 05/29/23 19:41 Respiratory Rate 18 05/29/23 19:41 Blood Pressure 152/92 H 05/29/23 19:41 Blood Pressure Mean 112 H 05/29/23 19:41 Blood Pressure Position Sitting 05/29/23 19:41 Pulse Oximetry 100 05/29/23 19:41 Oxygen Delivery Method Room Air 05/29/23 19:41 Vital Signs Temperature 97.6 F 05/29/23 19:41 Pulse Rate 103 H 05/29/23 19:41 Respiratory Rate 18 05/29/23 19:41 Blood Pressure 152/92 H 05/29/23 19:41 Pulse Oximetry 100 05/29/23 19:41 Oxygen Delivery Method Room Air 05/29/23 19:41 Temperature 97.6 F 05/29/23 19:41 Pulse Rate 103 H 05/29/23 19:41 Respiratory Rate 18 05/29/23 19:41 Blood Pressure 152/92 H 05/29/23 19:41 Pulse Oximetry 100 05/29/23 19:41 Oxygen Delivery Method Room Air 05/29/23 19:41 Medications Administered Medications: Discontinued Medications Generic Name Dose Route Start Last Admin Trade Name Freq PRN Reason Stop Dose Admin Diphenhydramine HCl 25 mg 05/29/23 19:55 05/29/23 20:38 Diphenhydramine 50 Mg/Ml Inj IVP 05/29/23 19:56 25 mg ONCE ONE Administration Sodium Chloride 1,000 mls @ 1,000 mls/hr 05/29/23 20:00 05/29/23 20:30 0.9 % Sodium Chloride 1000 Ml IV 05/29/23 20:59 1,000 mls/hr .Q1H FRANK Administration Ketorolac Tromethamine 15 mg 05/29/23 19:55 05/29/23 20:37 Ketorolac 15 Mg/Ml Inj IVP 05/29/23 19:56 15 mg ONCE ONE Administration Ondansetron HCl 4 mg 05/29/23 19:55 05/29/23 20:37 Ondansetron 2 Mg/Ml Inj IVP 05/29/23 19:56 4 mg ONCE ONE Administration Discharge Plan Discharge Clinical Impression: Migraine Patient Disposition: Home, Self-Care Condition: Improved Instructions: Migraine Headache (ED) Additional Instructions: Return as needed Prescriptions: No Action ondansetron HCl 4 mg tablet 4 mg PO Q8H Qty: 30 5RF Rx Instructions: use for nausea related to migraine levonorgestrel 17.5 mcg/24 hrs (5 yrs) 19.5 mg intrauterine device 1 intrauterine ONCE aspirin 81 mg capsule 81 mg PO QDAY Zyrtec 10 mg capsule 10 mg PO TID PRN naltrexone 4.5 mg capsule PO QDAY cimetidine 200 mg tablet 200 mg PO BID Digest Adv Probio Plus Gas 2 billion cell capsule PO riboflavin (vitamin B2) 100 mg tablet 100 mg PO QDAY magnesium citrate 100 mg capsule 400 mg PO QDAY quercetin 500 mg capsule PO QDAY cholecalciferol (vitamin D3) 125 mcg (5,000 unit) capsule 125 mcg PO QDAY norethindrone (contraceptive) 0.35 mg tablet 0.35 mg PO QDAY Qty: 84 0RF Follow Up/Referrals: Janay Qureshi MD [Primary Care Provider] - Stand Alone Forms: [facility] Instructions
[2023-05-29] MEDS: 0.9 % SODIUM CHLORIDE 1000 ml 1,000 ML IV ×2 (20:30→21:25)
[2023-05-29] MEDS: KETOROLAC 15 MG/ML inj IVP (20:37)
[2023-05-29] MEDS: ONDANSETRON 2 MG/ML inj 4 MG IVP (20:37)
[2023-05-29] MEDS: diphenhydrAMINE 50 MG/ML inj 25 MG IVP (20:38)
== END 2023-05-29 21:53 | disposition home or self-care (01) ==
LOC: ED 20:56
PROVIDERS: Emergency Provider Emergency Medicine; PCP Family Medicine
DX: G43.909 Migraine, unspecified, not intractable, without status migrainosus (principal)
CPT/HCPCS: 96361; 96374; 99284; J1200; J1885; J2405; J7030

== ENCOUNTER 2023-07-07 08:00 | Outpatient (RCR) | payer BC, OTHER, SELFPAY | END 2023-11-04 23:59 | disposition home or self-care (01) | PROVIDERS: PCP Family Medicine; Visit Provider Family Medicine | DX: M79.641 Pain in right hand (principal); M79.642 Pain in left hand; Z51.89 Encounter for other specified aftercare | CPT/HCPCS: 97035; 97110; 97140; 97162; 97165; 97530; 97535; L3933; X5282 ==

== ENCOUNTER 2023-08-17 10:40 | Outpatient (CLI) | payer BC, SELFPAY ==
--- OUTSIDE RECORDS SUMMARY | 2023-08-21 14:39 | XMS_ITS | Referral Summary ---
Author Name Unknown Organization [facility] Address [address] [place] [address] Care Team Providers Care Manipulative Therapy Specialist Name Role Phone Devika Fleming MD Unavailable [phone] Devika Fleming MD Unavailable [phone] Alysa Chinchilla MD Primary Care Provider [phone] Encounters Date Type Department Care Team Description 08/13/2023 Travel 08/13/2023 9:30 AM CDT Therapy Visit [address] [place] [address] Alysa Chinchilla MD Gerardi, Meghan Marie, PT Chase-Danlos syndrome (Primary Dx) 08/08/2023 Travel 07/16/2023 Transcribe Orders GENERIC EXTERNAL DATA DEPARTMENT Alysa Chinchilla MD Classical Chase-Danlos syndrome (Primary Dx); Hypermobility syndrome; Instability of joint; Chronic pain from Last 3 Months Allergies Active Allergy Reactions Criticality Noted Date [...] Sex Assigned at Female 02/16/2019 10:59 AM CREDIT UNION EXAMINER Gender Identity Female 02/16/2019 10:59 AM CREDIT UNION EXAMINER Sexual Orientation Bisexual 08/08/2023 1: 47 PM CDT Last Filed Vital Signs Vital Sign Reading Time Taken Comments Blood Pressure 123/83 02/22/2019 8:28 AM CREDIT UNION EXAMINER Pulse 67 02/22/2019 8:28 AM CREDIT UNION EXAMINER Temperature - - Respiratory Rate - - Oxygen Saturation - - Inhaled Oxygen Concentration - - Weight 104 kg (229 lb 4.8 oz) 02/22/2019 8:28 AM CREDIT UNION EXAMINER Height 170.2 cm (5' 7) 02/22/2019 8:28 AM CREDIT UNION EXAMINER Body Mass Index 35.91 02/22/2019 8:28 AM CREDIT UNION EXAMINER Plan of Treatment Upcoming Encounters Date Type Department Care Team (Late st Contact Info) Description 08/29/2023 10:15 AM CDT Therapy Visit [address] [address] Alysa Chinchilla MD [facility] [id number] [place] [address] Brandy Weber, PT [address] [place] [address] 09/22/2023 8:45 AM CDT Therapy Visit [address] [address] Alysa Chinchilla MD [facility] [address] [place] [address] Kimberly Suh, PT [address] [place] [address] 09/29/2023 10:15 AM CDT Therapy Visit [address] [address] Alysa Chinchilla MD [facility] [address] [place] [address] Kimberly Suh, PT [address] [place] [address] 10/06/2023 9:30 AM CDT Therapy Visit [address] [address] Alysa Chinchilla MD [facility] [id number] [place] [address] Kimberly Suh, PT [address] [place] [address] 10/13/2023 9:30 AM CDT Therapy Visit [address] [address] Alysa Chinchilla MD [facility] [employer] [address] [place] [address] Kimberly Suh, PT [address] [place] [address] 10/20/2023 10:15 AM CDT Therapy Visit [address] [address] Alsya Chinchilla MD [facility] [employer] [address] [place] [address] Kibmerly Suh, PT [address] [place] [address] 11/03/2023 11:00 AM CDT Therapy Visit [address] [address] Alysa Chinchilla MD [facility] [employer] [address] [place] [address] Kimberly Suh, PT [address] [place] [address] Care Teams Manipulative Therapy Specialist Relationship Specialty Start Date End Date Alysa Chinchilla MD [facility] [address] [facility] [address] PCP - General 08/08/23 Devika Fleming MD [address] [place] [address] Neurology 10/30/21 Devika Fleming MD [address] [place] [address] Assigned Neuroscience Provider 02/23/22
--- OUTSIDE RECORDS SUMMARY | 2023-08-21 14:39 | XMS_ITS | Encounter Summary ---
Author Name Unknown Organization [address] [address] Care Team Providers Care Attending Psychiatrist Name Role Phone Devika Fleming MD Unavailable [phone] Devika Fleming MD Unavailable [phone] Alysa Chinchilla MD Primary Care Provider [phone] Reason for Visit * Rehab Therapy Integrated Services (Routine) - Authorized Specialty Diagnoses / Procedures Referred By Edi ayala Referred To Contact Diagnoses 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 Chronic pain [address] [address] Referral ID Status Reason Start Date Expiration Date V isits Requested Visits Authorized [id number] Authorized 08/08/2023 04/06/2024 365 365 Encounter Details Date Type Department Care Team (Late st Contact Info) Description 08/13/2023 9:30 AM CDT Therapy Visit [facility] [address] [place] [address] [address] [place] [address] Alysa Chinchilla MD [facility] [address] [place] [address] Monica Kellogg, PT [address] [place] [address] Chase-Danlos syndrome (Primary Dx) Social History Tobacco [...] Sex Assigned at Female 02/16/2019 10:59 AM LEAD POURER Gender Identity Female 02/16/2019 10:59 AM LEAD POURER Sexual Orientation Bisexual 08/08/2023 1: 47 PM CDT documented as of this encounter Progress Notes * Monica Kellogg, PT - 08/13/2023 9:30 AM CDT PHYSICAL THERAPY EVALUATION Type of Visit: Evaluation See electronic medical record for Abuse and Falls Screening details. Subjective Diagnosed with cEDS 6 months ago. In added: POTS and MCAS to my diagnosis list. Did do PTmore locally, from [place]. Since March, using more aids: I fell in March - R hip tends tosublux/dislocates - got up off the couch and it gave out. Did some hand therapy, locally in [place] too. Got some splints, gloves, etc. Struggles with mousing at work. More trouble walking distances. Going to see Paty for compression - Will get it next . No imaging for neck. Seeing someone else for bodywork stuff: Jose Carlos: myofascial counterstrain (in [place]) Getting 1L of fluids every other week. [...] Personal Safety and Judgement: Intact Memory: Intact [place] Impact of Hypermobility Questionnaire: 249/360=69% Vitals: seated [...] Independent WHEELCHAIR MOBILITY: N/A GAIT: Level of Love: Independent Assistive Device(s): None, Patient typically does [...] self care tasks, work tasks, recreational activities, shadowgraph scale operator, household mobility, and community mobility as compared to previous level of function. Clinical Decision Making (Complexity): Clinical Presentation: Evolving/Changing Clinical Presentation Rationale: based on medical and personal factors listed in PT evaluation Clinical Decision Making (Complexity): Moderate complexity PLAN OF CARE Treatment Interventions: Modalities: per therapist discretion Interventions: Gait Training, Manual Therapy, Neuromuscular Re-education, Therapeutic Activity, Therapeutic Exercise, Self-Care/Home Management, Orthotic Fitting/Training Hedis Registered Nurse Rn Goals Frequency of Treatment: Duration of Treatment: [...] Description 08/29/2023 10:15 AM CDT Therapy Visit [facility] [address] [place] [address] [address] [place] [address] Alysa Chinchilla MD [facility] [address] [facility] [place] [address] Brandy Weber, PT [address] [place] [address] 09/22/2023 8:45 AM CDT Therapy Visit [address] [address] Alysa Chinchilla MD [facility] [id number] [place] [address] Kimberly Suh, PT [address] [place] [address] 09/29/2023 10:15 AM CDT Therapy Visit [address] [address] Alysa Chinchilla MD [facility] [id number] [place] [address] Kimberly Suh, PT [address] [place] [address] 10/06/2023 9:30 AM CDT Therapy Visit [address] [address] Alysa Chinchilla MD [facility] [employer] [address] [place] [address] Kimberly Suh, PT [address] [place] [address] 10/13/2023 9:30 AM CDT Therapy Visit [address] [address] Alysa Chinchilla MD [facility] [employer] [facility] [address] [place] [address] Kimberly Suh, PT [address] [place] [address] 10/20/2023 10:15 AM CDT Therapy Visit [address] [address] Alysa Chinchilla MD [facility] [address] [place] [address] [place] [address] [place] [address] 11/03/2023 11:00 AM CDT Therapy Visit [address] [address] Alysa Chinchilla MD [facility] [address] [place] [address] Kimberly Suh, PT [address] [place] [address] Scheduled Referrals Name Type Priority Associated Diagnoses Orde r Schedule Physical Therapy Salvage Determiner Referral Referral Routine 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 Chronic pain Ordered: 07/16/2023 documented as of this encounter Visit Diagnoses Diagnosis Chase-Danlos syndrome- Primary documented in this encounter Care Teams Attending Psychiatrist Relationship Specialty Start Date End Date Alysa Chinchilla MD [facility] [address] [place] [address] PCP - General 08/08/23 Devika Fleming MD [address] [place] [address] Neurology 10/30/21 Devika Fleming MD [address] [place] [address] Assigned Neuroscience Provider 02/23/22 documented as of this encounter
--- OUTSIDE RECORDS SUMMARY | 2023-08-21 14:39 | XMS_ITS | Clinical Summary ---
Author Name Unknown Organization [facility] Address [address] [place] [address] Care Team Providers Care Ceramic Restorer Name Role Phone Devika Fleming MD Unavailable [phone] Devika Fleming MD Unavailable [phone] Alysa Chinchilla MD Primary Care Provider [phone] Allergies Active Allergy Reactions Criticality Noted Date [...] Description 08/13/2023 9:30 AM CDT Therapy Visit [address] 140 [place] [address] Alysa Chinchilla MD Gerardi, Meghan Marie, PT [...] Sex Assigned at Female 02/16/2019 10:59 AM PRODUCTION MACHINE SHOP SUPERVISOR Gender Identity Female 02/16/2019 10:59 AM PRODUCTION MACHINE SHOP SUPERVISOR Sexual Orientation Bisexual 08/08/2023 1: 47 PM CDT Last Filed Vital Signs Vital Sign Reading Time Taken Comments Blood Pressure 123/83 02/22/2019 8:28 AM PRODUCTION MACHINE SHOP SUPERVISOR Pulse 67 02/22/2019 8:28 AM PRODUCTION MACHINE SHOP SUPERVISOR Temperature - - Respiratory Rate - - Oxygen Saturation - - Inhaled Oxygen Concentration - - Weight 104 kg (229 lb 4.8 oz) 02/22/2019 8:28 AM PRODUCTION MACHINE SHOP SUPERVISOR Height 170.2 cm (5' 7) 02/22/2019 8:28 AM PRODUCTION MACHINE SHOP SUPERVISOR Body Mass Index 35.91 02/22/2019 8:28 AM PRODUCTION MACHINE SHOP SUPERVISOR Plan of Treatment Upcoming Encounters Date Type Department Care Team (Late st Contact Info) Description 08/29/2023 10:15 AM CDT Therapy Visit [address] [address] Alysa Chinchilla MD [facility] [email or web address] [address] [place] [address] Brandy Weber, PT [address] [place] [address] 09/22/2023 8:45 AM CDT Therapy Visit [address] [address] Alysa Chinchilla MD [facility] [email or web address] [address] [place] [address] Kimberly Suh, PT [address] [place] [address] 09/29/2023 10:15 AM CDT Therapy Visit [address] [address] Alysa Chinchilla MD [facility] [email or web address] [address] [place] [address] Kimberly Suh, PT [address] [place] [address] 10/06/2023 9:30 AM CDT Therapy Visit [address] [address] Alysa Chinchilla MD [facility] [email or web address] [address] [place] [address] Kimberly Suh, PT [address] [place] [address] 10/13/2023 9:30 AM CDT Therapy Visit [address] [address] Alysa Chinchilla MD [facility] [email or web address] [address] [place] [address] Kimberly Suh, PT [address] [place] [address] 10/20/2023 10:15 AM CDT Therapy Visit [address] [address] Alysa Chinchilla MD [facility] [employer] [address] [place] [address] Kimberly Suh, PT [address] [place] [address] 11/03/2023 11:00 AM CDT Therapy Visit [address] [address] Alysa Chinchilla MD [facility] [employer] [id number] [place] [address] Kimberly Suh, PT [address] [place] [address] Health Maintenance Due Date Last Done Comments ADVANCE CARE PLANNING 1984 ANNUAL REVIEW OF HM ORDERS 1984 DEPRESSION ACTION PLAN 1984 GLUCOSE 1984 PHQ-9 1984 YEARLY PREVENTIVE VISIT 1984 HIV SCREENING 1999 HEPATITIS C SCREENING 2002 PAP 10/14/2022 10/15/2019 COVID-19 Vaccine (4 - 2022- season) 2022 02/22/2021, 06/29/2020, 05/31/2020 DTAP/TDAP/TD IMMUNIZATION [...] age to complete this topic Care Teams Ceramic Restorer Relationship Specialty Start Date End Date Alysa Chinchilla MD [facility] [address] [place] [address] PCP - General 08/08/23 Devika Fleming MD [address] [place] [address] Neurology 10/30/21 Devika Fleming MD [address] [place] [address] [facility] Neuroscience Provider 02/23/22
--- OUTSIDE RECORDS SUMMARY | 2023-08-21 14:39 | XMS_ITS | Encounter Summary ---
Author Name Unknown Organization [place] Address [address] [place] [address] Care Team Providers Care Billiard Table Mechanic Name Role Phone Devika Fleming MD Unavailable [phone] Devika Fleming MD Unavailable [phone] Alysa Chinchilla MD Primary Care Provider [phone] Encounter Details Date Type Department Care Team [...] Sex Assigned at Female 02/16/2019 10:59 AM PLASTERER MAINTENANCE Gender Identity Female 02/16/2019 10:59 AM PLASTERER MAINTENANCE Sexual Orientation Bisexual 08/08/2023 1: 47 PM CDT documented as of this encounter Plan of Treatment Upcoming Encounters Date Type Department Care Team (Late st Contact Info) Description 08/29/2023 10:15 AM CDT Therapy Visit [facility] [address] [place] [address] [address] [place] [address] Alysa Chinchilla MD [facility] [address] [facility] [address] Brandy Weber, PT [address] [place] [address] 09/22/2023 8:45 AM CDT Therapy Visit [address] [address] Alysa Chinchilla MD [facility] [id number] [place] [address] Kimberly Suh, PT [address] [place] [address] 09/29/2023 10:15 AM CDT Therapy Visit [address] [address] Alysa Chinchilla MD [facility] [id number] [place] [address] Kimberly Suh, PT [address] [place] [address] 10/06/2023 9:30 AM CDT Therapy Visit [address] [address] Alysa Chinchilla MD [facility] [employer] [address] [place] [address] Kimberly Suh, PT [address] [place] [address] 10/13/2023 9:30 AM CDT Therapy Visit [address] [address] Alysa Chinchilla MD [employer] [address] [place] [address] [place] [address] [place] [address] 10/20/2023 10:15 AM CDT Therapy Visit [address] [address] Alysa Chinchilla MD [employer] [address] [place] [address] [place] [address] [place] [address] 11/03/2023 11:00 AM CDT Therapy Visit [address] [address] Alysa Chinchilla MD [employer] [address] [place] [address] Kimberly Suh, PT [address] [place] [address] documented as of this encounter Visit Diagnoses Not on filedocumented in this encounter Care Teams Billiard Table Mechanic Relationship Specialty Start Date End Date Alysa Chinchilla MD [employer] [address] [place] [address] PCP - General 08/08/23 Devika Fleming MD [address] [place] [address] Neurology 10/30/21 Devika Fleming MD [address] [place] [address] Assigned Neuroscience Provider 02/23/22 documented as of this encounter
--- OUTSIDE RECORDS SUMMARY | 2023-08-21 14:40 | XMS_ITS | Encounter Summary ---
Author Name Unknown Organization [place] Address [address] [place] [address] Care Team Providers Care Electrical Engineering Professor Name Role Phone Susie Vogt MD Primary Care Provider + [phone] Devika Fleming MD Unavailable [phone] Devika Fleming MD Unavailable [phone] Alysa Chinchilla MD Primary Care Provider [phone] Reason for Visit * Reason Onset Date Comments Refill Request 10/09/2020 Encounter Details Date Type Department Care Team (Late st Contact Info) Description 10/09/2020 [facility] [address] [address] Lali Orr MD [address] [place] [address] [id number] Refill Request Social History Tobacco Use Types [...] Sex Assigned at Female 02/16/2019 10:59 AM CASH SURRENDER CALCULATOR Gender Identity Female 02/16/2019 10:59 AM CASH SURRENDER CALCULATOR Sexual Orientation Bisexual 08/08/2023 1: 47 PM [...] Description 08/29/2023 10:15 AM CDT Therapy Visit [address] [address] Alysa Chinchilla MD [employer] [address] [place] [address] Brandy Weber, PT [address] [place] [address] 09/22/2023 8:45 AM CDT Therapy Visit [address] [address] Alysa Chinchilla MD [employer] [address] [place] [address] Kimberly Suh, PT [address] [place] [address] 09/29/2023 10:15 AM CDT Therapy Visit [address] 140 [place] [address] Alysa Chinchilla MD [facility] [employer] [address] [place] [address] Kimberly Suh, PT [address] [place] [address] 10/06/2023 9:30 AM CDT Therapy Visit [address] [address] Alysa Chinchilla MD [facility] [employer] [address] [place] [address] Kimberly Suh, PT [address] [place] [address] 10/13/2023 9:30 AM CDT Therapy Visit [address] [address] Alysa Chinchilla MD [employer] [facility] [employer] [address] [place] [address] Kimberly Suh, PT [address] [place] [address] 10/20/2023 10:15 AM CDT Therapy Visit [address] [address] Alysa Chinchilla MD [facility] [employer] [address] [place] [address] Kimberly Suh, PT [address] [place] [address] 11/03/2023 11:00 AM CDT Therapy Visit [address] [address] Alysa Chinchilla MD [employer] [facility] [address] [place] [address] Kimberly Suh, PT [address]200 [place] [address] documented as of this encounter Visit Diagnoses Diagnosis Chronic tension-type headache, intractable Chronic tension type headache Migraine with aura and without status migrainosus, not intractable Migraine with aura, without mention of intractable migraine without mention of status migrainosus documented in this encounter Care Teams Electrical Engineering Professor Relationship Specialty Start Date End Date Susie Vogt MD [facility] [address] [place] [address] PCP - General asbestos pipe supervisor 12/29/18 08/07/23 Alysa Chinchilla MD [employer] [address] [place] [address] PCP - General 08/08/23 Devika Fleming MD [address] [place] [address] Neurology 10/30/21 Devika Fleming MD [address] [place] [address] Assigned Neuroscience Provider 02/23/22 documented as of this encounter
--- OUTSIDE RECORDS SUMMARY | 2023-08-21 14:40 | XMS_ITS | Encounter Summary ---
Author Name Unknown Organization [facility] Address [address] [place] [address] Care Team Providers Care Bicycle Inspector Name Role Phone Susie Vogt MD Primary Care Provider [phone] Devika Fleming MD Unavailable [phone] Devika Fleming MD Unavailable [phone] Alysa Chinchilla MD Primary Care Provider [phone] Encounter Details Date Type Department Care Team (Late st Contact Info) Description 10/07/2021 MyC Medical Advice Initial Department [facility] Social History Tobacco Use Types Packs/Day Years Used Date Smoking Tobacco: Never Smokeless Tobacco: Never Alcohol Use Standard Drinks/Week Comments Not Currently 0 (1 standard drink = 0.6 oz pur e alcohol) PHQ-2 Answer Date Recorded PHQ-2 Score 2 02/22/2019 Sex and Gender Information Value Date Recorded Sex Assigned at Female 02/16/2019 10:59 AM TRIBAL COUNCIL MEMBER Gender Identity Female 02/16/2019 10:59 AM TRIBAL COUNCIL MEMBER Sexual Orientation Bisexual 08/08/2023 1: 47 PM CDT documented as of this encounter Plan of Treatment Upcoming Encounters Date Type Department Care Team (Late st Contact Info) Description 08/29/2023 10:15 AM CDT Therapy Visit [facility] [address] [place] [address] [address] [place] [address] Alysa Chinchilla MD [facility] [address] [facility] [place] [address] Brandy Weber, PT [facility] [address] [place] [address] 09/22/2023 8:45 AM CDT Therapy Visit [address] [address] Alysa Chinchilla MD [employer] [facility] [employer] [phone] [place] [address] Kimberly Suh, PT [address] [place] [address] 09/29/2023 10:15 AM CDT Therapy Visit [address] [address] Alysa Chinchilla MD [employer] [facility] [employer] [address] [place] [address] Kimberly Suh, PT [address] [place] [address] 10/06/2023 9:30 AM CDT Therapy Visit [address] [address] Alysa Chinchilla MD [employer] [facility] [employer] [address] [facility] [place] [address] Kimberly Suh, PT [address] [place] [address] 10/13/2023 9:30 AM CDT Therapy Visit [address] [address] Alysa Chinchilla MD [employer] [address] [facility] [place] [address] Kimberly Suh, PT 2200 [place] [address] 10/20/2023 10:15 AM CDT Therapy Visit [address] [address] Alysa Chinchilla MD [employer] [address] [place] [address] [place] [address] [place] [address] 11/03/2023 11:00 AM CDT Therapy Visit [address] [address] Alysa Chinchilla MD [employer] [address] [place] [address] [place] [address] [place] [address] documented as of this encounter Visit Diagnoses Not on filedocumented in this encounter Care Teams Bicycle Inspector Relationship Specialty Start Date End Date Susie Vogt MD [facility] [id number] [place] [address] PCP - General knife sharpener 12/29/18 08/07/23 Alysa Chinchilla MD [employer] [id number] [place] [address] [place] [address] PCP - General 08/08/23 Devika Fleming MD [address] [place] [address] Neurology 10/30/21 Devika Fleming MD [address] [place] [address] Assigned Neuroscience Provider 02/23/22 documented as of this encounter
--- OUTSIDE RECORDS SUMMARY | 2023-08-21 14:40 | XMS_ITS | Encounter Summary ---
Author Name Unknown Organization [place] Address [address] [place] [address] Care Team Providers Care Concrete Mixer Name Role Phone Susie Vogt MD Primary Care Provider + [phone] Devika Fleming MD Unavailable [phone] Devika Fleming MD Unavailable [phone] Devika Fleming MD Unavailable [phone] Alysa Chinchilla MD Primary Care Provider [phone] Reason for Visit * Reason Onset Date Comments Refill Request 07/17/2019 Encounter Details Date Type Department Care Team (Late st Contact Info) Description 07/17/2019 MyC Refill [facility] [address] [place] [address] [address] [place] [address] Devika Fleming MD [address] [place] [address] [id number] Refill Request Social History Tobacco Use Types Packs/Day Years Used Date Smoking Tobacco: Never Smokeless Tobacco: Never Alcohol Use Standard Drinks/Week Comments Not Currently 0 (1 standard drink = 0.6 oz pur e alcohol) PHQ-2 Answer Date Recorded PHQ-2 Score 2 02/22/2019 Sex and Gender Information Value Date Recorded Sex Assigned at Female 02/16/2019 10:59 AM COLLIERY CLERK Gender Identity Female 02/16/2019 10:59 AM COLLIERY CLERK Sexual Orientation Bisexual 08/08/2023 1: 47 PM CDT documented as of this encounter Plan of Treatment Upcoming Encounters Date Type Department Care Team (Late st Contact Info) Description 08/29/2023 10:15 AM CDT Therapy Visit [facility] [address] [place] [address] 140 [place] [address] Alysa Chinchilla MD [employer] [address] [place] [address] Brandy Weber, PT [address] [place] [address] 09/22/2023 8:45 AM CDT Therapy Visit [address] [place] [address] Alysa Chinchilla MD [employer] [address] [place] [address] Kimberly Suh, PT [address] [place] [address] 09/29/2023 10:15 AM CDT Therapy Visit [address] [place] [address] Alysa Chinchilla MD [employer] [address] [place] [place] [address] Kimberly Suh, PT [address] [place] [address] 10/06/2023 9:30 AM CDT Therapy Visit [address] [place] [address] Alysa Chinchilla MD [employer] [address] [place] [address] Kimberly Suh, PT [address] [place] [address] 10/13/2023 9:30 AM CDT Therapy Visit [address] [address] Alysa Chinchilla MD [employer] [address] [place] [address] Kimberly Suh, PT [address] [place] [address] 10/20/2023 10:15 AM CDT Therapy Visit [address] [address] Alysa Chinchilla MD [employer] [address] [place] [address] Kimberly Suh, PT [address] [place] [address] 11/03/2023 11:00 AM CDT Therapy Visit [address] [address] Alysa Chinchilla MD [employer] [address] [place] [place] [address] Kimberly Suh, PT [address] [place] [address] documented as of this encounter Visit Diagnoses Diagnosis Chronic tension-type headache, intractable Chronic tension type headache Migraine with aura and without status migrainosus, not intractable Migraine with aura, without mention of intractable migraine without mention of status migrainosus documented in this encounter Care Teams Concrete Mixer Relationship Specialty Start Date End Date Susie Vogt MD [facility] 9974 [place] [address] PCP - General agricultural equipment design engineer 12/29/18 08/07/23 Alysa Chinchilla MD [facility] [address] [place] [address] PCP - General 08/08/23 Devika Fleming MD [address] [place] [address] Assigned Neuroscience Provider 01/28/20 08/26/20 Devika Fleming MD [address] [place] [address] Neurology 10/30/21 Devika Fleming MD [address] [place] [address] Assigned Neuroscience Provider 02/23/22 documented as of this encounter
--- OUTSIDE RECORDS SUMMARY | 2023-08-21 14:40 | XMS_ITS | Encounter Summary ---
Author Name Unknown Organization [place] Address [address] [place] [address] Care Team Providers Care Electronic Warfare Linguist Name Role Phone Susie Vogt MD Primary Care Provider [phone] Devika Fleming MD Unavailable [phone] Devika Fleming MD Unavailable [phone] Devika Fleming MD Unavailable [phone] Alysa Chinchilla MD Primary Care Provider [phone] Reason for Visit * Reason Onset Date Comments Clinic Care Coordination - Initial 01/07/[address] Fleming 02/22/2019 Encounter Details Date Type Department Care Team (Late st Contact Info) Description 01/07/2019 Telephone [facility] Neurology [address] [address] Devika Fleming MD [address] [place] [address] Clinic Care Coordination - Initial (Records for appointment with Dr. Fleming 02/22/2019) Social History Tobacco Use Types Packs/Day Years Used Date Smoking Tobacco: Never Assessed Sex and Gender Information Value Date Recorded Sex Assigned at Female 02/16/2019 10:59 AM EXECUTIVE PRODUCER Gender Identity Female 02/16/2019 10:59 AM EXECUTIVE PRODUCER Sexual Orientation Bisexual 08/08/2023 1: 47 PM [...] Description 08/29/2023 10:15 AM CDT Therapy Visit [address] [place] [address] Alysa Chinchilla MD [employer] [id number] [place] [address] Brandy Weber, PT [address] [place] [address] 09/22/2023 8:45 AM CDT Therapy Visit [address] [place] [address] Alysa Chinchilla MD [employer] [id number] [place] [address] Kimberly Suh, PT [address] [place] [address] 09/29/2023 10:15 AM CDT Therapy Visit [address] [place] [address] Alysa Chinchilla MD [employer] [id number] [place] [address] Kimberly Suh, PT [address] [place] [address] 10/06/2023 9:30 AM CDT Therapy Visit [address] [place] [address] Alysa Chinchilla MD [employer] [facility] [facility] [address] [place] [address] Kimberly Suh, PT [address] [place] [address] 10/13/2023 9:30 AM CDT Therapy Visit [address] [address] Alysa Chinchilla MD [employer] [facility] [address] [place] [address] Kimberly Suh, PT [address] [place] [address] 10/20/2023 10:15 AM CDT Therapy Visit [address] [address] Alysa Chinchilla MD [employer] [address] [place] [address] Kimberly Suh, PT [address] [place] [address] 11/03/2023 11:00 AM CDT Therapy Visit [address] [address] Alysa Chinchilla MD [employer] [address] [place] [address] Kimberly Suh, PT [address] [place] [address] documented as of this encounter Visit Diagnoses Not on filedocumented in this encounter Care Teams Electronic Warfare Linguist Relationship Specialty Start Date End Date Susie Vogt MD [facility] [address] [place] [address] PCP - General dust puller 12/29/18 08/07/23 Alysa Chinchilla MD [employer] [facility] [address] [place] [address] PCP - General 08/08/23 Devika Fleming MD [address] [place] [address] Assigned Neuroscience Provider 01/28/20 08/26/20 Devika Fleming MD [address] [place] [address] Neurology 10/30/21 Devika Fleming MD [address] [place] [address] Assigned Neuroscience Provider 02/23/22 documented as of this encounter
--- OUTSIDE RECORDS SUMMARY | 2023-08-21 14:40 | XMS_ITS | Encounter Summary ---
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 If you don't hear from a arborist representative within 2 business days, please call [...] plan with any benefit or coverage questions. [facility] will call you to coordinate your care as prescribed by your provider. If you don't hear from a arborist representative within 2 business days, please call . Encounter Details Date Type Department Care Team (Late st Contact Info) Description 07/16/2023 Transcribe Orders GENERIC EXTERNAL DATA DEPARTMENT Alysa Chinchilla MD [place] [address] [place] [place] [address] Classical Chase-Danlos syndrome (Primary Dx); Hypermobility syndrome; [...] Sex Assigned at Female 02/16/2019 10:59 AM NURSING HOME AIDE Gender Identity Female 02/16/2019 10:59 AM NURSING HOME AIDE Sexual Orientation Bisexual 08/08/2023 1: 47 PM CDT documented as of this encounter Plan of Treatment Upcoming Encounters Date Type Department Care Team (Late st Contact Info) Description 08/29/2023 10:15 AM CDT Therapy Visit [address] [address] Alysa Chinchilla MD [place] [address] [facility] [address] Brandy Weber, PT [facility] [address] [place] [address] 09/22/2023 8:45 AM CDT Therapy Visit [address] 140 [place] [address] Alysa Chinchilla MD [place] [address] [place] [address] Kimberly Suh, PT [address] [place] [address] 09/29/2023 10:15 AM CDT Therapy Visit [address] [address] Alysa Chinchilla MD [employer] [address] [address] Kimberly Suh, PT [address] [place] [address] 10/06/2023 9:30 AM CDT Therapy Visit [address] [address] Alysa Chinchilla MD [employer] [address] [place] [address] Kimberly Suh, PT [address] [place] [address] 10/13/2023 9:30 AM CDT Therapy Visit [address] [address] Alysa Chinchilla MD [employer] [address] [place] [address] Kimberly Suh, PT [address] [place] [address] 10/20/2023 10:15 AM CDT Therapy Visit [address] [address] Alysa Chinchilla MD [employer] [place] [address] [place] [address] Kimbrely Suh, PT [address] [place] [address] 11/03/2023 11:00 AM CDT Therapy Visit [facility] [address] [facility] [address] [place] [address] Alysa Chinchilla MD [facility] [address] [place] [address] Kimberly Suh, PT [address] [place] [address] Scheduled Referrals Name Type Priority Associated Diagnoses Orde r Schedule Physical Therapy Prepress Stripper Referral Referral Routine 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 Chronic pain Ordered: 07/16/2023 documented as of this encounter Visit Diagnoses Diagnosis 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
--- OUTSIDE RECORDS SUMMARY | 2023-08-21 14:40 | XMS_ITS | Encounter Summary ---
Author Name Unknown Organization [place] Address [address] [place] [address] Care Team Providers Care Environmental Health Manager Name Role Phone Susie Vogt MD Primary Care Provider + [phone] Devika Fleming MD Unavailable [phone] Devika Fleming MD Unavailable [phone] Alysa Chinchilla MD Primary Care Provider [phone] Encounter Details Date Type Department Care Team (Late st Contact Info) Description 08/14/2022 MyC Medical Advice [facility] [address] 3rd [place] [address] Devika Fleming MD [address] [place] [address] Social History Tobacco Use Types Packs/Day Years Used Date Smoking Tobacco: Never Smokeless Tobacco: Never Alcohol Use Standard Drinks/Week Comments Not Currently 0 (1 standard drink = 0.6 oz pur e alcohol) PHQ-2 Answer Date Recorded PHQ-2 Score 2 02/18/2022 Sex and Gender Information Value Date Recorded Sex Assigned at Female 02/16/2019 10:59 AM FIRE EXTINGUISHER CHARGER Gender Identity Female 02/16/2019 10:59 AM FIRE EXTINGUISHER CHARGER Sexual Orientation Bisexual 08/08/2023 1: 47 PM CDT documented as of this encounter Plan of Treatment Upcoming Encounters Date Type Department Care Team (Late st Contact Info) Description 08/29/2023 10:15 AM CDT Therapy Visit [facility] [address] [facility] [address] [place] [address] Alysa Chinchilla MD [employer] [address] [place] [address] Brandy Weber, PT [address] [place] [address] 09/22/2023 8:45 AM CDT Therapy Visit [facility] [address] [facility] 140 [place] [address] Alysa Chinchilla MD [employer] [address] [place] [address] Kimberly Suh, PT [address] [place] [address] 09/29/2023 10:15 AM CDT Therapy Visit [facility] [address] [facility] [address] [place] [address] Alysa Chinchilla MD [employer] [address] [place] [address] Kimberly Suh, PT [address] [place] [address] 10/06/2023 9:30 AM CDT Therapy Visit [facility] [address] [facility] [address] [place] [address] Alysa Chinchilla MD [employer] [address] [place] [address] Kimberly Suh, PT [address] [place] [address] 10/13/2023 9:30 AM CDT Therapy Visit [address] [place] [address] Alysa Chinchilla MD [employer] [address] [place] [address] Kimberly Suh, PT [address] [place] [address] 10/20/2023 10:15 AM CDT Therapy Visit [address] [address] Alysa Chinchilla MD [employer] [address] [place] [address] Kimberly Suh, PT [address] [place] [address] 11/03/2023 11:00 AM CDT Therapy Visit [address] [address] Alysa Chinchilla MD [employer] [address] [place] [address] Kimberly Suh, PT [address] [place] [address] documented as of this encounter Visit Diagnoses Not on filedocumented in this encounter Care Teams Environmental Health Manager Relationship Specialty Start Date End Date Susie Vogt MD [facility] [address] [place] [address] PCP - General single needle tufting machine operator 12/29/18 08/07/23 Alysa Chinchilla MD [employer] [address] [place] [address] [place] [address] PCP - General 08/08/23 Devika Fleming MD [address] [place] [address] Neurology 10/30/21 Devika Fleming MD [address] [place] [address] Assigned Neuroscience Provider 02/23/22 documented as of this encounter
--- OUTSIDE RECORDS SUMMARY | 2023-08-21 14:40 | XMS_ITS | Encounter Summary ---
Author Name Unknown Organization [place] Address [address] [place] [address] Care Team Providers Care Buffing Turner And Counter Name Role Phone Devika Fleming MD Unavailable [phone] Devika Fleming MD Unavailable [phone] Alysa Chinchilla MD Primary Care Provider [phone] Encounter Details Date Type Department Care Team [...] Sex Assigned at Female 02/16/2019 10:59 AM REGISTER REPAIRER Gender Identity Female 02/16/2019 10:59 AM REGISTER REPAIRER Sexual Orientation Bisexual 08/08/2023 1: 47 PM CDT documented as of this encounter Plan of Treatment Upcoming Encounters Date Type Department Care Team (Late st Contact Info) Description 08/29/2023 10:15 AM CDT Therapy Visit [facility] [address] [place] [address] [address] [place] [address] Alysa Chinchilla MD [facility] [address] [facility] [address] Brandy Weber, PT [address] [place], [place] [address] 09/22/2023 8:45 AM CDT Therapy Visit [address] [address] Alysa Chinchilla MD [employer] [id number] [place] [address] Kimberly Suh, PT [address] [place] [address] 09/29/2023 10:15 AM CDT Therapy Visit [address] [address] Alysa Chinchilla MD [facility] [address] [place] [address] Kimberly Suh, PT [address] [place] [address] 10/06/2023 9:30 AM CDT Therapy Visit [address] [address] Alysa Chinchilla MD [facility] [employer] [address] [place] [address] Kimberly Suh, PT [address] [place] [address] 10/13/2023 9:30 AM CDT Therapy Visit [address] [address] Alysa Chinchilla MD [facility] [address] [place] [address] [place] [address] [place] [address] 10/20/2023 10:15 AM CDT Therapy Visit [address] [address] Alysa Chinchilla MD [employer] [address] [place] [address] [place] [address] [place] [address] 11/03/2023 11:00 AM CDT Therapy Visit [address] [address] Alysa Chinchilla MD [employer] [address] [place] [address] Kimberly Suh, PT [address] [place] [address] documented as of this encounter Visit Diagnoses Not on filedocumented in this encounter Care Teams Buffing Turner And Counter Relationship Specialty Start Date End Date Alysa Chinchilla MD [employer] [address] [place] [address] PCP - General 08/08/23 Devika Fleming MD [address] [place] [address] Neurology 10/30/21 Devika Fleming MD [address] [place] [address] Assigned Neuroscience Provider 02/23/22 documented as of this encounter
--- OUTSIDE RECORDS SUMMARY | 2023-08-21 14:40 | XMS_ITS | Encounter Summary ---
Author Name Unknown Organization [place] Address [address] [place] [address] Care Team Providers Care Trolley Coach Driver Name Role Phone Susie Vogt MD Primary Care Provider + [phone] Devika Fleming MD Unavailable [phone] Devika Fleming MD Unavailable [phone] Alysa Chinchilla MD Primary Care Provider [phone] Reason for Visit * Reason Onset Date Comments Refill Request 10/07/2020 Encounter Details Date Type Department Care Team (Late st Contact Info) Description 10/07/2020 MyC Refill M [facility] [address] [address] Lali Orr MD [address] [place] [address] Refill Request Social History Tobacco Use Types Packs/Day Years Used Date Smoking Tobacco: Never Smokeless Tobacco: Never Alcohol Use Standard Drinks/Week Comments Not Currently 0 (1 standard drink = 0.6 oz pur e alcohol) PHQ-2 Answer Date Recorded PHQ-2 Score 2 02/22/2019 Sex and Gender Information Value Date Recorded Sex Assigned at Female 02/16/2019 10:59 AM SIGNAL INTELLIGENCE ANALYST Gender Identity Female 02/16/2019 10:59 AM SIGNAL INTELLIGENCE ANALYST Sexual Orientation Bisexual 08/08/2023 1: 47 PM CDT documented as of this encounter Plan of Treatment Upcoming Encounters Date Type Department Care Team (Late st Contact Info) Description 08/29/2023 10:15 AM CDT Therapy Visit [facility] 2200 [facility] 140 [place] [address] Alysa Chinchilla MD [employer] [address] [place] [address] Brandy Weber, PT [address] [place] [address] 09/22/2023 8:45 AM CDT Therapy Visit [facility] [address] [place] [address] 140 [place] [address] Alysa Chinchilla MD [employer] [address] [place] [address] Kimberly Suh, PT [address] [place] [address] 09/29/2023 10:15 AM CDT Therapy Visit [facility] 2[address] [facility] 140 [place] [address] Alysa Chinchilla MD [employer] [address] [place] [address] Kimberly Suh, PT [address] [place] [address] 10/06/2023 9:30 AM CDT Therapy Visit [facility] [address] [place] [address] 140 [place] [address] Alysa Chinchilla MD [employer] [address] [place] [address] Kimberly Suh, PT [address] [place] [address] 10/13/2023 9:30 AM CDT Therapy Visit [address] [address] Alysa Chinchilla MD [email or web address] [address] [place] [address] Kimberly Suh, PT [address] [place] [address] 10/20/2023 10:15 AM CDT Therapy Visit [address] [address] Alysa Chinchilla MD [email or web address] [address] [place] [address] Kimberly Suh, PT [address] [place] [address] 11/03/2023 11:00 AM CDT Therapy Visit [address] [address] Alysa Chinchilla MD [email or web address] [address] [place] [address] Kimberly Suh, PT [address] [place] [address] documented as of this encounter Visit Diagnoses Diagnosis Chronic tension-type headache, intractable Chronic tension type headache Migraine with aura and without status migrainosus, not intractable Migraine with aura, without mention of intractable migraine without mention of status migrainosus documented in this encounter Care Teams Trolley Coach Driver Relationship Specialty Start Date End Date Susie Vogt MD [facility] [address] [place] [address] PCP - General floor renovator 12/29/18 08/07/23 Alysa Chinchilla MD [facility] [address] [place] [address] PCP - General 08/08/23 Devika Fleming MD [address] [place] [address] Neurology 10/30/21 Devika Fleming MD [address] [place] [address] Assigned Neuroscience Provider 02/23/22 documented as of this encounter
--- OUTSIDE RECORDS SUMMARY | 2023-08-21 14:40 | XMS_ITS | Encounter Summary ---
Author Name Unknown Organization [place] Address [address] [place] [address] Care Team Providers Care Chucking Lathe Operator Name Role Phone Susie Vogt MD Primary Care Provider [phone] Devika Fleming MD Unavailable [phone] Devika Fleming MD Unavailable [phone] Alysa Chinchilla MD Primary Care Provider [phone] Encounter Details Date Type Department Care Team (Late st Contact Info) Description 10/16/2020 MyC Medical Advice [facility] [address] [address] Susi Gloria, ISIAH Social History Tobacco Use Types Packs/Day Years Used Date Smoking Tobacco: Never Smokeless Tobacco: Never Alcohol Use Standard Drinks/Week Comments Not Currently 0 (1 standard drink = 0.6 oz pur e alcohol) PHQ-2 Answer Date Recorded PHQ-2 Score 2 02/22/2019 Sex and Gender Information Value Date Recorded Sex Assigned at Female 02/16/2019 10:59 AM CLIENT APPLICATION SUPPORT ENGINEER Gender Identity Female 02/16/2019 10:59 AM CLIENT APPLICATION SUPPORT ENGINEER Sexual Orientation Bisexual 08/08/2023 1: 47 PM CDT documented as of this encounter Plan of Treatment Upcoming Encounters Date Type Department Care Team (Late Contact Info) Description 08/29/2023 10:15 AM CDT Therapy Visit [facility] [address] [place], [place] [id number] Alysa Chinchilla MD [employer] [address] [place] [address] Brandy Weber, PT [address] [place] [address] 09/22/2023 8:45 AM CDT Therapy Visit [address] [address] Alysa Chinchilla MD [employer] [address] [place] [address] Kimberly Suh, PT [address] [place] [address] 09/29/2023 10:15 AM CDT Therapy Visit [address] [address] Alysa Chinchilla MD [employer] [address] [place] [address] Kimberly Suh, PT [address] [place] [address] 10/06/2023 9:30 AM CDT Therapy Visit [address] [address] Alysa Chinchilla MD [employer] [address] [place] [address] Kimberly Suh, PT [address] [place] [address] 10/13/2023 9:30 AM CDT Therapy Visit [address] [address] Alysa Chinchilla MD [email or web address] Document Preparation [address] [place] [address] Kimberly Suh, PT [address] [place] [address] 10/20/2023 10:15 AM CDT Therapy Visit [address] [address] Alysa Chinchilla MD [employer] [address] [place] [address] Kimberly Suh, PT [address] [place] [address] 11/03/2023 11:00 AM CDT Therapy Visit [address] [address] Alysa Chinchilla MD [employer] [address] [place] [address] Kimberly Suh, PT [address] [place] [address] documented as of this encounter Visit Diagnoses Not on filedocumented in this encounter Care Teams Chucking Lathe Operator Relationship Specialty Start Date End Date Susie Vogt MD [facility] [address] [place] [address] PCP - General plastic joint maker 12/29/18 08/07/23 Alysa Chinchilla MD [employer] [address] [place] [address] PCP - General 08/08/23 Devika Fleming MD [address] [place] [address] 759575 Neurology 10/30/21 Devika Fleming MD [address] [place] [address] 374325 Assigned Neuroscience Provider 02/23/22 documented as of this encounter
--- OUTSIDE RECORDS SUMMARY | 2023-08-21 14:40 | XMS_ITS | Encounter Summary ---
Author Name Unknown Organization [place] Address [address] [place] [address] Care Team Providers Care Painter Set Name Role Phone Susie Vogt MD Primary Care Provider + [phone] Devika Fleming MD Unavailable [phone] Devika Fleming MD Unavailable [phone] Devika Fleming MD Unavailable [phone] Alysa Chinchilla MD Primary Care Provider [phone] Reason for Visit * Reason Onset Date Comments Refill Request 04/07/2020 Encounter Details Date Type Department Care Team (Late st Contact Info) Description 04/07/2020 MyC [facility] [address] [address] Lali Orr MD [address] [place] [address] Refill Request Social History Tobacco Use Types Packs/Day Years Used Date Smoking Tobacco: Never Smokeless Tobacco: Never Alcohol Use Standard Drinks/Week Comments Not Currently 0 (1 standard drink = 0.6 oz pur e alcohol) PHQ-2 Answer Date Recorded PHQ-2 Score 2 02/22/2019 Sex and Gender Information Value Date Recorded Sex Assigned at Female 02/16/2019 10:59 AM BILLING ADJUDICATOR Gender Identity Female 02/16/2019 10:59 AM BILLING ADJUDICATOR Sexual Orientation Bisexual 08/08/2023 1: 47 PM CDT documented as of this encounter Miscellaneous Notes * Telephone Encounter - Jo Parson CMA - 04/10/2020 8:53 AM BILLING ADJUDICATOR Rx Authorization: ??? Requested Medication/ Dose: Nortriptyline 10MG caps ??? Date last refill ordered: 02/21/20 ??? Quantity ordered: 90 caps ??? # refills: ??? Date of last clinic visit with ordering provider: 02/22/19 ??? Date of next clinic visit with ordering provider: F/U 1 year ??? All pertinent protocol data (lab date/result): ??? Include pertinent information from patients message: ING ADJUDICATOR documented in this encounter Plan of Treatment Upcoming Encounters Date Type Department Care Team (Late st Contact Info) Description 08/29/2023 10:15 AM CDT Therapy Visit [address] [address] Alysa Chinchilla MD [employer] [address] [place] [address] Brandy Weber, PT [address] [place] [address] 09/22/2023 8:45 AM CDT Therapy Visit [address] [address] Alysa Chinchilla MD [employer] [address] [place] [address] Kimberly Suh, PT [address] [place] [address] 09/29/2023 10:15 AM CDT Therapy Visit [address] [address] Alysa Chinchilla MD [employer] [address] [place] [address] Kimberly Suh, PT [address] [place] [address] 10/06/2023 9:30 AM CDT Therapy Visit [address] [address] Alysa Chinchilla MD [employer] [address] [place] [address] Kimberly Suh, PT [address] [place] [address] 10/13/2023 9:30 AM CDT Therapy Visit [address] [address] Alysa Chinchilla MD [employer] [address] [place] [address] Kimberly Suh, PT [address] [place] [address] 10/20/2023 10:15 AM CDT Therapy Visit [address] [address] Alysa Chinchilla MD [employer] [address] [place] [address] Kimberly Suh, PT [address] [place] [address] 11/03/2023 11:00 AM CDT Therapy Visit [address] [address] Alysa Chinchilla MD [employer] [address] [place] [address] SuhKimberly, PT [address] [place] [address] documented as of this encounter Visit Diagnoses Diagnosis Chronic tension-type headache, intractable Chronic tension type headache Migraine with aura and without status migrainosus, not intractable Migraine with aura, without mention of intractable migraine without mention of status migrainosus documented in this encounter Care Teams Painter Set Relationship Specialty Start Date End Date Susie Vogt MD [facility] [address] [address] PCP - General cafeteria or lunchroom checker 12/29/18 08/07/23 Alysa Chinchilla MD [employer] [address] [place] [address] PCP - General 08/08/23 Devika Fleming MD [address] [place] [address] Assigned Neuroscience Provider 01/28/20 08/26/20 Devika Fleming MD [address] [place] [address] Neurology 10/30/21 Devika Fleming MD [address] [place] [address] Assigned Neuroscience Provider 02/23/22 documented as of this encounter
--- OUTSIDE RECORDS SUMMARY | 2023-08-21 14:40 | XMS_ITS | Encounter Summary ---
Author Name Unknown Organization [place] Address [address] [place] [address] Care Team Providers Care Cane Cutter Name Role Phone Susie Vogt MD Primary Care Provider + [phone] Devika Fleming MD Unavailable [phone] Devika Fleming MD Unavailable [phone] Alysa Chinchilla MD Primary Care Provider [phone] Encounter Details Date Type Department Care Team (Late st Contact Info) Description 04/10/2022 MyC Medical Advice [facility] Neurology Clinic [address] 3rd [place] [address] Devika Fleming MD [address] [place] [address] Social History Tobacco Use Types Packs/Day Years Used Date Smoking Tobacco: Never Smokeless Tobacco: Never Alcohol Use Standard Drinks/Week Comments Not Currently 0 (1 standard drink = 0.6 oz pur e alcohol) PHQ-2 Answer Date Recorded PHQ-2 Score 2 02/18/2022 Sex and Gender Information Value Date Recorded Sex Assigned at Female 02/16/2019 10:59 AM TEACHER PUBLIC HEALTH Gender Identity Female 02/16/2019 10:59 AM TEACHER PUBLIC HEALTH Sexual Orientation Bisexual 08/08/2023 1: 47 PM CDT documented as of this encounter Plan of Treatment Upcoming Encounters Date Type Department Care Team (Late st Contact Info) Description 08/29/2023 10:15 AM CDT Therapy Visit [facility] [address] [facility] [address] [place] [address] Alysa Chinchilla MD [employer] [address] [place] [address] Brandy Weber, PT [address] [place] [address] 09/22/2023 8:45 AM CDT Therapy Visit [facility] [address] [facility] 140 [place] [address] Alysa Chinchilla MD [employer] [address] [place] [address] Kimberly Suh, PT [address] [place] [address] 09/29/2023 10:15 AM CDT Therapy Visit [facility] [address] [facility] 140 [place] [address] Alysa Chinchilla MD [employer] [address] [place] [address]69 Kimberly Suh, PT [address] [place] [address] 10/06/2023 9:30 AM CDT Therapy Visit [facility] [address] [facility] 140 [place] [address] Alysa Chinchilla MD [employer] [address] [place] [address] 418[address] Kimberly Suh, PT [address] [place] [address] 10/13/2023 9:30 AM CDT Therapy Visit [address] 140 [place] [address] Alysa Chinchilla MD [employer] [address] [place] [address] Kimberly Suh, PT [address] [place] [address] 10/20/2023 10:15 AM CDT Therapy Visit [address] [address] Alysa Chinchilla MD [employer] [address] [place] [address] Kimberly Suh, PT [address] [place] [address] 10671 11/03/2023 11:00 AM CDT Therapy Visit [address] [address] Alysa Chinchilla MD [employer] [address] [place] [address] Kimberly Suh, PT [address] [place] [address] 23841 documented as of this encounter Visit Diagnoses Not on filedocumented in this encounter Care Teams Cane Cutter Relationship Specialty Start Date End Date Susie Vogt MD [facility] [address] [place] [address] PCP - General equipment analyst 12/29/18 08/07/23 Alysa Chinchilla MD [employer] [address] [place] [address] [place] [address] PCP - General 08/08/23 Devika Fleming MD [address] [place] [address] Neurology 10/30/21 Devika Fleming MD [address] [place] [address] Assigned Neuroscience Provider 02/23/22 documented as of this encounter
--- OUTSIDE RECORDS SUMMARY | 2023-08-21 14:40 | XMS_ITS | Encounter Summary ---
Author Name Unknown Organization [place] Address [address] [place] [address] Care Team Providers Care Main Entree Cook And Cashier Name Role Phone Susie Vogt MD Primary Care Provider + [phone] Devika Fleming MD Unavailable [phone] Devika Fleming MD Unavailable [phone] Alysa Chinchilla MD Primary Care Provider [phone] Reason for Visit * Reason Onset Date Comments Refill Request 10/12/2020 Encounter Details Date Type Department Care Team (Late st Contact Info) Description 10/12/2020 MyC Refill [facility] Neurology [address] [address] Lali Orr MD [address] [place] [address] Refill Request Social History Tobacco Use Types Packs/Day Years Used Date Smoking Tobacco: Never Smokeless Tobacco: Never Alcohol Use Standard Drinks/Week Comments Not Currently 0 (1 standard drink = 0.6 oz pur e alcohol) PHQ-2 Answer Date Recorded PHQ-2 Score 2 02/22/2019 Sex and Gender Information Value Date Recorded Sex Assigned at Female 02/16/2019 10:59 AM SECONDARY EDUCATION PROFESSOR Gender Identity Female 02/16/2019 10:59 AM SECONDARY EDUCATION PROFESSOR Sexual Orientation Bisexual 08/08/2023 1: 47 PM CDT documented as of this encounter Plan of Treatment Upcoming Encounters Date Type Department Care Team (Late st Contact Info) Description 08/29/2023 10:15 AM CDT Therapy Visit [facility] [address] [facility] 140 [place] [address] Alysa Chinchilla MD [employer] [facility] [address] [place] [address] Brandy Weber, PT [address] [place] [address] 09/22/2023 8:45 AM CDT Therapy Visit [facility] [address] [place] [address] 140 [place] [address] Alysa Chinchilla MD [employer] [facility] [address] [place] [address] Kimberly Suh, PT [address] [place] [address] 09/29/2023 10:15 AM CDT Therapy Visit [facility] [address] [facility] 140 [place] [address] Alysa Chicnhilla MD [employer] [facility] [address] [place] [address] Kimberly Suh, PT [address] [place] [address] 10/06/2023 9:30 AM CDT Therapy Visit [facility] [address] [place] [address] 140 [place] [address] Alysa Chinchilla MD [employer] [facility] [address] [place] [address] Kimberly Suh, PT [address] [place] [address] 10/13/2023 9:30 AM CDT Therapy Visit [address] [address] Alysa Chinchilla MD [employer] [address] [place] [address] Kimberly Suh, PT [address] [place] [address] 10/20/2023 10:15 AM CDT Therapy Visit [address] [address] Alysa Chinchilla MD [employer] [address] [place] [address] Kimberly Suh, PT [address] [place] [address] 11/03/2023 11:00 AM CDT Therapy Visit [address] [address] Alysa Chinchilla MD [employer] [address] [place] [address] Kimberly Suh, PT [address] [place] [address] documented as of this encounter Visit Diagnoses Diagnosis Chronic tension-type headache, intractable Chronic tension type headache Migraine with aura and without status migrainosus, not intractable Migraine with aura, without mention of intractable migraine without mention of status migrainosus documented in this encounter Care Teams Main Entree Cook And Cashier Relationship Specialty Start Date End Date Susie Vogt MD [facility] [address] [place] [address] PCP - General poultry hanger 12/29/18 08/07/23 Alysa Chinchilla MD [facility] [address] [place] [address] PCP - General 08/08/23 Devika Fleming MD [address] [place] [address] Neurology 10/30/21 Devika Fleming MD [address] [place] [address] Assigned Neuroscience Provider 02/23/22 documented as of this encounter
--- OUTSIDE RECORDS SUMMARY | 2023-08-21 14:40 | XMS_ITS | Encounter Summary ---
Author Name Unknown Organization [place] Address [address] [place] [address] Care Team Providers Care Tank Cooper Name Role Phone Susie Vogt MD Primary Care Provider + [phone] Devika Fleming MD Unavailable [phone] Devika Fleming MD Unavailable [phone] Alysa Chinchilla MD Primary Care Provider [phone] Encounter Details Date Type Department Care Team (Late st Contact Info) Description 04/24/[address] [facility] Neurology Clinic [address] 3rd [place] [address] Devika Fleming MD [address] [place] [address] Social History Tobacco Use Types Packs/Day Years Used Date Smoking Tobacco: Never Smokeless Tobacco: Never Alcohol Use Standard Drinks/Week Comments Not Currently 0 (1 standard drink = 0.6 oz pur e alcohol) PHQ-2 Answer Date Recorded PHQ-2 Score 2 02/18/2022 Sex and Gender Information Value Date Recorded Sex Assigned at Female 02/16/2019 10:59 AM MACHINE SHOP APPRENTICE Gender Identity Female 02/16/2019 10:59 AM MACHINE SHOP APPRENTICE Sexual Orientation Bisexual 08/08/2023 1: 47 PM CDT documented as of this encounter Plan of Treatment Upcoming Encounters Date Type Department Care Team (Late st Contact Info) Description 08/29/2023 10:15 AM CDT Therapy Visit [facility] [address] [facility] [address] [place] [address] Alysa Chinchilla MD [employer] [facility] [address] [place] [address] Brandy Weber, PT [address] [place] [address] 09/22/2023 8:45 AM CDT Therapy Visit [facility] [address] [facility] 140 [place] [address] Alysa Chinchilla MD [employer] [address] [place] [address] Kimberly Suh, PT [address] [place] [address] 09/29/2023 10:15 AM CDT Therapy Visit [facility] [address] [facility] [address] [place] [address] Alysa Chinchilla MD [employer] [address] [place] [address] Kimberly Suh, PT [address] [place] [address] 10/06/2023 9:30 AM CDT Therapy Visit [facility] [address] [facility] 140 [place] [address] Alysa Chinchilla MD [employer] [address] [place] [address] Kimberly Suh, PT [address] [place] [address] 10/13/2023 9:30 AM CDT Therapy Visit [address] [place] [address] Alysa Chinchilla MD [employer] [address] [place] [address] Kimberly Suh, PT [address] [place] [address] 10/20/2023 10:15 AM CDT Therapy Visit [address] [address] Alysa Chinchilla MD [employer] [address] [place] [address] Kimberly Suh, PT [address] [place] [address] 11/03/2023 11:00 AM CDT Therapy Visit [address] [address] Alysa Chinchilla MD [employer] [address] [place] [address] Kimberly Suh, PT [address] [place] [address] documented as of this encounter Visit Diagnoses Not on filedocumented in this encounter Care Teams Tank Cooper Relationship Specialty Start Date End Date Susie Vogt MD [facility] [address] [place] [address] PCP - General solid waste analyst 12/29/18 08/07/23 Alysa Chinchilla MD [employer] [address] [place] [address] [place] [address] PCP - General 08/08/23 Devika Fleming MD [address] [place] [address] Neurology 10/30/21 Devika Fleming MD [address] [place] [address] Assigned Neuroscience Provider 02/23/22 documented as of this encounter
--- OUTSIDE RECORDS SUMMARY | 2023-08-21 14:40 | XMS_ITS | Encounter Summary ---
Author Name Unknown Organization [place] Address [address] [place] [address] Care Team Providers Care Setter Up Name Role Phone Susie Vogt MD Primary Care Provider + [phone] Devika Fleming MD Unavailable [phone] Devika Fleming MD Unavailable [phone] Devika Fleming MD Unavailable [phone] Alysa Chinchilla MD Primary Care Provider [phone] Encounter Details Date Type Department Care Team (Late st Contact Info) Description 06/02/2019 [facility] Medical Advice [facility] Neurology [address] [place] [address] [address] [place] [address] Devika Fleming MD [address] [place] [address] Social History Tobacco Use Types Packs/Day Years Used Date Smoking Tobacco: Never Smokeless Tobacco: Never Alcohol Use Standard Drinks/Week Comments Not Currently 0 (1 standard drink = 0.6 oz pur e alcohol) PHQ-2 Answer Date Recorded PHQ-2 Score 2 02/22/2019 Sex and Gender Information Value Date Recorded Sex Assigned at Female 02/16/2019 10:59 AM MOTION STUDY ENGINEER Gender Identity Female 02/16/2019 10:59 AM MOTION STUDY ENGINEER Sexual Orientation Bisexual 08/08/2023 1: 47 PM CDT documented as of this encounter Plan of Treatment Upcoming Encounters Date Type Department Care Team (Late st Contact Info) Description 08/29/2023 10:15 AM CDT Therapy Visit [facility] [address] [facility] [address] [place] [address] Alysa Chinchilla MD [employer] [address] [place] [address] Brandy Weber, PT [address] [place] [address] 09/22/2023 8:45 AM CDT Therapy Visit [facility] [address] [place] [address] 140 [place] [address] Alysa Chinchilla MD [employer] [facility] [address] [place] [address] Kimberly Suh, PT [address] [place] [address] 09/29/2023 10:15 AM CDT Therapy Visit [facility] [address] [facility] [address] [place] [address] Alysa Chinchilla MD [employer] [address] [place] [address] Kimberly Suh, PT [address] [place] [address] 10/06/2023 9:30 AM CDT Therapy Visit [facility] [address] [place] [address] 140 [place] [address] Alysa Chinchilla MD [employer] [address] [place] [address] Kimberly Suh, PT [address] [place] [address] 10/13/2023 9:30 AM CDT Therapy Visit [address] [address] Alysa Chinchilla MD [employer] [address] [place] [address] Kimberly Suh, PT [address] [place] [address] 10/20/2023 10:15 AM CDT Therapy Visit [address] [address] Alysa Chinchilla MD [employer] [address] [place] [address] Kimberly Suh, PT [address] [place] [address] 11/03/2023 11:00 AM CDT Therapy Visit [address] [address] Alysa Chinchilla MD [employer] [address] [place] [address] Kimberly Suh, PT [address] [place] [address] documented as of this encounter Visit Diagnoses Not on filedocumented in this encounter Care Teams Setter Up Relationship Specialty Start Date End Date Susie Vogt MD [facility] [address]74 [place] [address] PCP - General pomologist 12/29/18 08/07/23 Alysa Chinchilla MD [facility] [address] [place] [address] PCP - General 08/08/23 Devika Fleming MD [address] [place] [address] Assigned Neuroscience Provider 01/28/20 08/26/20 Devika Fleming MD [address] [place] [address] Neurology 10/30/21 Devika Fleming MD [address] [place] [address] Assigned Neuroscience Provider 02/23/22 documented as of this encounter
--- OUTSIDE RECORDS SUMMARY | 2023-08-21 14:40 | XMS_ITS | Clinical Summary ---
Author Name Unknown Organization [facility] Address [address] [place] [address] Care Team Providers Care Respiratory Therapy Assistant Name Role Phone No Primary/Referring, Phy Primary Care Provider Unavailable Source Comments You are receiving this document as you are listed as the primary care provider,follow-up provider, or the patient has been referred to you for consultation.This is in compliance with the Medicare and[facility] EHR Incentive Program,which states Providers who transition their patient to another setting of careor provider of care or refers their patient to another provider of care shouldprovide summary care record for each transition of care or referral. Formerly [facility], [facility] Allergies Active Allergy Reactions Criticality Noted [...] Comments Blood Pressure 115/90 03/11/2016 8:45 PM PEARLER Pulse 87 03/11/2016 8:45 PM PEARLER Temperature 36.4 ??C (97.5 ??F) 03/11/2016 8:44 PM CS T Respiratory Rate 22 03/11/2016 8:44 PM PEARLER Oxygen Saturation 96% 03/11/2016 8:44 PM PEARLER Inhaled Oxygen Concentration - - Weight 107 kg (236 lb) 03/11/2016 8:44 PM PEARLER Height 168.9 cm (5' 6.5) 03/11/2016 8:44 PM PEARLER Body Mass Index 37.52 03/11/2016 8:44 PM PEARLER Plan of Treatment Health Maintenance Due Date [...] age to complete this topic Care Teams Respiratory Therapy Assistant Relationship Specialty Start Date End Date No Primary/Referring, Phy PCP - General 03/11/16
--- OUTSIDE RECORDS SUMMARY | 2023-08-21 14:40 | XMS_ITS | Clinical Summary ---
Author Name Unknown Organization [facility] [employer] [facility] Address [place], [place] [address] Care Team Providers Care Co Founder And Chairman Name Role Phone Janet Jones MD Primary [...] Comments Blood Pressure 102/64 04/21/2023 2:08 PM ECHO TECHNICIAN Pulse 96 04/21/2023 2:08 PM ECHO TECHNICIAN Temperature 36.4 ??C (97.6 ??F) 05/12/2017 3:29 PM CS T Respiratory Rate 16 07/17/2018 12:1 2 PM CDT Oxygen Saturation 100% 04/21/2023 2:08 PM ECHO TECHNICIAN Inhaled Oxygen Concentration - - Weight 108.1 kg (238 lb 6.4 oz) 04/21/2023 2:08 PM ECHO TECHNICIAN Height 170 cm (5' 6.93) 04/21/2023 2:08 PM ECHO TECHNICIAN Body Mass Index 37.42 04/21/2023 2:08 PM ECHO TECHNICIAN Plan of Treatment Health Maintenance Due [...] Procedure Name Priority Date/Time Associated Diagnosis Comments CORPORATE MANAGER THIN PREP PAP SCREEN IMAGED Routine 10/15/2019 2:00 PM CDT from Last 3 Months or Most Recently Relevant to Health Maintenance Results * CORPORATE MANAGER THIN PREP PAP SCREEN IMAGED (10/15/2019 2:00 PM CDT) Case Report Gynecologic Cytology Report ? Case: [id number] ? Authorizing Provider: ??Susie Vogt MD ?Collected: ? 10/15/2019 1400 ? Ordering Location: ? [facility] ?Received: ?10/19/2019 0948 ? First Screen: ?Giovanny Perea ? Specimen: ?CORPORATE MANAGER ThinPrep Vial Screening, Cervical/Vaginal ? 10/20/2019 12:34 PM CDT [facility] INTERPRETATION/ RESULT NEGATIVE FOR INTRAEPITHELIAL LESION OR MALIGNANCY (NIL) (none) 10/20/2019 12:34 PM CDT [facility] IMEN ADEQUACY Satisfactory for evaluation Endocervical component present 10/20/2019 12:34 PM CDT [facility] HPV REQUEST HPV and PAP 10/20/2019 12:34 PM CDT [facility] Last Pap Date 07/24/2010 10/20/2019 12:34 PM CDT [facility] Last Pap Result NIL 0 12:34 PM CDT [facility] Menstrual Status 10/20/2019 12:34 PM CDT [facility] Comment:IUD Additional Information 10/20/2019 12:34 PM CDT [facility] Comment: Interpreted at [facility] - [address], [place] [address] Automated Review Successful 10/20/2019 12:34 PM CDT [facility] Comment:Specimen processed s uccessfully by automated home appliances mechanic device, ThinPrep Imaging System, [employer] ANCILLARY TESTING CORPORATE MANAGER HPV Ordered, Please see separate report 10/20/2019 12:34 PM CDT [facility] Note The pap test is [...] and malignant lesions. 10/20/2019 12:34 PM CDT [facility] Other (Cervical/Vagina l) 10/15/2019 2:00 PM CDT 10/19/2019 9:48 AM CDT Susie Vogt MD PATHOLOGY/CYTOLOGY [facility] [address] [place] [address], [place] from Last 3 Months or Most Recently Relevant to Health Maintenance Care Teams Co Founder And Chairman Relationship Specialty Start Date End [place] [address] PCP - General Family Practice 04/21/23
== END 2023-08-17 10:41 | disposition home or self-care (01) ==
LOC: AMB 08-21 14:38
PROVIDERS: PCP Family Medicine; Visit Provider Family Medicine
DX: M54.50 Low back pain, unspecified (principal)
CPT/HCPCS: A0425; A0427

== ENCOUNTER 2023-08-17 11:21 | Emergency (ER) | payer BC, SELFPAY ==
[2023-08-17 11:29] VITALS: BP 144/93; PULSE 91; RESP 16; TEMP 37; O2SAT 100; BMI 37.6
[2023-08-17 11:43] VITALS: PULSE 93; O2SAT 96
[2023-08-17 11:45] VITALS: PULSE 90; O2SAT 97
[2023-08-17 12:00] VITALS: PULSE 82; O2SAT 97
--- OUTSIDE RECORDS SUMMARY | 2023-08-17 12:07 | XMS_ITS | Encounter Summary ---
Author Name Unknown Organization [employer] Address [address] [place] [address] Care Team Providers Care Assistant Plant Manager Name Role Phone Devika Fleming MD Unavailable [phone] Devika Fleming MD Unavailable [phone] Aylsa Chinchilla MD Primary Care Provider [phone] Encounter Details Date Type Department Care Team (Latest Contact Info) Description 08/13/2023 Travel Social History Tobacco Use Types Packs/Day Years [...] Sex Assigned at Female 02/16/2019 10:59 AM FLOOR COVERINGS SALESPERSON Gender Identity Female 02/16/2019 10:59 AM FLOOR COVERINGS SALESPERSON Sexual Orientation Bisexual 08/08/2023 1: 47 PM CDT documented as of this encounter Plan of Treatment Upcoming Encounters Date Type Department Care Team (Late st Contact Info) Description 08/21/2023 8:45 AM CDT Therapy Visit [facility] [address] [place] [address] [address] [place] [address] Alysa Chinchilla MD [employer] [facility] [address] [place] [address] Kimberly Suh, PT [address] [place] [address] 08/29/2023 10:15 AM CDT Therapy Visit [address] [place] [address] Alysa Chinchilla MD [employer] [address] [place] [address] Brandy Weber, PT [facility] [address] [place] [address] 09/22/2023 8:45 AM CDT Therapy Visit [address] [place] [address] Alysa Chinchilla MD [employer] [address] [place] [address] Kimberly Suh, PT [address] [place] [address] 09/29/2023 10:15 AM CDT Therapy Visit [address] [address] Alysa Chinchilla MD [employer] [address] [place] [address] Kimberly Suh, PT [address] [place] [address] 10/06/2023 9:30 AM CDT Therapy Visit [address] [place] [address] Alysa Chinchilla MD [employer] [address] [place] [address] [place] [address] [place] [address] 10/13/2023 9:30 AM CDT Therapy Visit [address] [address] Alysa Chinchilla MD [employer] [id number] [place] [address] Kimberly Suh, PT [address] [place] [address] 10/20/2023 10:15 AM CDT Therapy Visit [address] [address] Alysa Chinchilla MD [employer] [id number] [place] [address] Kimberly Suh, PT [address] [place] [address] 11/03/2023 11:00 AM CDT Therapy Visit [address] [address] Alysa Chinchilla MD [employer] [id number] [place] [address] [place] [address] Kimberly Suh, PT [address] [place] [address] documented as of this encounter Visit Diagnoses Not on filedocumented in this encounter Care Teams Assistant Plant Manager Relationship Specialty Start Date End Date Alysa Chinchilla MD [employer] [address] [place], [place] [address]EROS HOWELL [address] PCP - General 5/3/24 Devika Fleming MD [address] [place], [place] [id number] Neurology 10/30/21 Devika Fleming MD [address] [place] [address] [id number] Assigned Neuroscience Provider 02/23/22 documented as of this encounter
--- OUTSIDE RECORDS SUMMARY | 2023-08-17 12:07 | XMS_ITS | Encounter Summary ---
Author Name Unknown Organization [facility] Address [address] [place] [address] Care Team Providers Care Patent Solicitor Name Role Phone Susie Vogt MD Primary Care Provider [phone] Devika Fleming MD Unavailable [phone] Devika Fleming MD Unavailable [phone] Alysa Chinchilla MD Primary Care Provider [phone] Reason for Visit * Reason Onset Date Comments Refill Request 10/09/2020 Encounter Details Date Type Department Care Team (Late st Contact Info) Description 10/09/2020 Jaylan M [facility] [address] [address] Lali Orr MD [address] [place] [id number] Refill Request Social History Tobacco Use Types Packs/Day Years Used Date Smoking Tobacco: Never Smokeless Tobacco: Never Alcohol Use Standard Drinks/Week Comments Not Currently 0 (1 standard drink = 0.6 oz pur e alcohol) PHQ-2 Answer Date Recorded PHQ-2 Score 2 02/22/2019 Sex and Gender Information Value Date Recorded Sex Assigned at Female 02/16/2019 10:59 AM BIOMEDICAL SERVICE ENGINEER Gender Identity Female 02/16/2019 10:59 AM BIOMEDICAL SERVICE ENGINEER Sexual Orientation Bisexual 08/08/2023 1: 47 PM CDT documented as of this encounter Miscellaneous Notes [...] documented in this encounter Plan of Treatment Upcoming Encounters Date Type Department Care Team (Late st Contact Info) Description 08/21/2023 8:45 AM CDT Therapy Visit [address] [place] [address] Alysa Chinchilla MD [employer] [id number] [place] [address] Kimberly Suh, PT [address] [place] [address] 08/29/2023 10:15 AM CDT Therapy Visit [address] [address] Alysa Chinchilla MD [employer] [address] [place] [address] Brandy Weber, PT [place] [phone] [facility] [place]OWE[place] [address] 09/22/2023 8:45 AM CDT Therapy Visit [address] [address] Alysa Chinchilla MD [employer] [address] [facility] [address] Kimberly Suh, PT [address] [place] [address] 09/29/2023 10:15 AM CDT Therapy Visit [address] [address] Alysa Chinchilla MD [employer] [address] [place] [address] Kimberly Suh, PT [address] [place] [address] 10/06/2023 9:30 AM CDT Therapy Visit [address] [address] Alysa Chinchilla MD [employer] [address] [place] [address] Kimberly Suh, PT [address] [place] [address] 10/13/2023 9:30 AM CDT Therapy Visit [address] [address] Alysa Chinchilla MD [employer] [address] [place] [address] Kimberly Suh, PT [address] [place] [address] 10/20/2023 10:15 AM CDT Therapy Visit [address] [address] Alysa Chinchilla MD [employer] [facility] [place] [address] Kimberly Suh, PT [address] [place] [address] 11/03/2023 11:00 AM CDT Therapy Visit [facility] [address] [facility] [address] [place] [address] Alysa Chinchilla MD [employer] [address] [place] [address] Kimberly Suh, PT [address] [place] [address] documented as of this encounter Visit Diagnoses Diagnosis Chronic tension-type headache, intractable Chronic tension type headache Migraine with aura and without status migrainosus, not intractable Migraine with aura, without mention of intractable migraine without mention of status migrainosus documented in this encounter Care Teams Patent Solicitor Relationship Specialty Start Date End Date Susie Vogt MD [facility] [address] [place] [address] PCP - General port cdl a driver 12/29/18 08/07/23 Alysa Chinchilla MD [employer] [id number] [place] [address] PCP - General 08/08/23 Devika Fleming MD [address] [place] [address] Neurology 10/30/21 Devika Fleming MD [address] [place] [address] Assigned Neuroscience Provider 02/23/22 documented as of this encounter
--- OUTSIDE RECORDS SUMMARY | 2023-08-17 12:07 | XMS_ITS | Encounter Summary ---
Author Name Unknown Organization [place] Address [address] [place] [address] Care Team Providers Care Service Team Leader Name Role Phone Susie Vogt MD Primary Care Provider + [phone] Devika Fleming MD Unavailable [phone] Devika Fleming MD Unavailable +[phone] Devika Fleming MD Unavailable +[phone] Alysa Chinchilla MD Primary Care Provider [phone] Reason for Visit * Reason Onset Date Comments Refill Request 07/17/2019 Encounter Details Date Type Department Care Team (Late st Contact Info) Description 07/17/2019 MyC Refill [facility] [address] [place] [address] 3rd [place] [address] Devika Fleming MD [address] [place] [address] [id number] Refill Request Social History Tobacco Use Types Packs/Day Years Used Date Smoking Tobacco: Never Smokeless Tobacco: Never Alcohol Use Standard Drinks/Week Comments Not Currently 0 (1 standard drink = 0.6 oz pur e alcohol) PHQ-2 Answer Date Recorded PHQ-2 Score 2 02/22/2019 Sex and Gender Information Value Date Recorded Sex Assigned at Female 02/16/2019 10:59 AM MANAGER BUDGET Gender Identity Female 02/16/2019 10:59 AM MANAGER BUDGET Sexual Orientation Bisexual 08/08/2023 1: 47 PM CDT documented as of this encounter Plan of Treatment Upcoming Encounters Date Type Department Care Team (Late st Contact Info) Description 08/21/2023 8:45 AM CDT Therapy Visit [address] [address] Alysa Chinchilla MD [employer] [id number] [place] [address] Kimberly Suh, PT [address] [place] [address] 08/29/2023 10:15 AM CDT Therapy Visit [address] [address] Alysa Chinchilla MD [employer] [address] [place] [address] Brandy Weber, PT [address] [place] [address] 09/22/2023 8:45 AM CDT Therapy Visit [address] [address] Alysa Chinchilla MD [employer] [id number] [place] [address] Kimberly Suh, PT [address] [place] [address] 09/29/2023 10:15 AM CDT Therapy Visit [address] [address] Alysa Chinchilla MD [employer] [address] [place] [address] Kimberly Suh, PT [address] [place] [address] 10/06/2023 9:30 AM CDT Therapy Visit [address] [address] Alysa Chinchilla MD [employer] [address] [place] [address] Kimberly Suh, PT [address] [place] [address] 10/13/2023 9:30 AM CDT Therapy Visit [address] [address] Alysa Chinchilla MD [employer] [address] [place] [address] Kimberly Suh, PT [address] [place] [address] 10/20/2023 10:15 AM CDT Therapy Visit [address] [address] Alysa Chinchilla MD [employer] [id number] [place] [address] Kimberly Suh, PT [address] [place] [address] 11/03/2023 11:00 AM CDT Therapy Visit [address] [address] Alysa Chinchilla MD [employer] [address] [place] [address] Kimberly Suh, PT [address] [place] [address] documented as of this encounter Visit Diagnoses Diagnosis Chronic tension-type headache, intractable Chronic tension type headache Migraine with aura and without status migrainosus, not intractable Migraine with aura, without mention of intractable migraine without mention of status migrainosus documented in this encounter Care Teams Service Team Leader Relationship Specialty Start Date End Date Susie Vogt MD [facility] [address] [place] [address] PCP - General boat dispatcher 12/29/18 08/07/23 Alysa Chinchilla MD [facility] [address] [place] [address] PCP - General 08/08/23 Devika Fleming MD [address] [place] [address] Assigned Neuroscience Provider 01/28/20 08/26/20 Devika Fleming MD [address] [place] [address] Neurology 10/30/21 Devika Fleming MD [address] [place] [address] Assigned Neuroscience Provider 02/23/22 documented as of this encounter
--- OUTSIDE RECORDS SUMMARY | 2023-08-17 12:07 | XMS_ITS | Encounter Summary ---
Author Name Unknown Organization [place] Address [address] [place] [address] Care Team Providers Care Dicer Machine Operator Name Role Phone Susie Vogt MD Primary Care Provider + [phone] Devika Fleming MD Unavailable [phone] Devika Fleming MD Unavailable [phone] Alysa Chinchilla MD Primary Care Provider [phone] Encounter Details Date Type Department Care Team (Late st Contact Info) Description 04/24/2022 MyC Medical Advice [facility] [address] 3rd [place] [address] Devika Fleming MD [address] [place] [address] Social History Tobacco Use Types Packs/Day Years Used Date Smoking Tobacco: Never Smokeless Tobacco: Never Alcohol Use Standard Drinks/Week Comments Not Currently 0 (1 standard drink = 0.6 oz pur e alcohol) PHQ-2 Answer Date Recorded PHQ-2 Score 2 02/18/2022 Sex and Gender Information Value Date Recorded Sex Assigned at Female 02/16/2019 10:59 AM COWLMAN Gender Identity Female 02/16/2019 10:59 AM COWLMAN Sexual Orientation Bisexual 08/08/2023 1: 47 PM CDT documented as of this encounter Plan of Treatment Upcoming Encounters Date Type Department Care Team (Late st Contact Info) Description 08/21/2023 8:45 AM CDT Therapy Visit [facility] [address] [facility] [address] [place] [address] Alysa Chinchilla MD [employer] [address] [place] [address] Kimberly Suh, PT [address] [place] [address] 08/29/2023 10:15 AM CDT Therapy Visit [facility] [address] [facility] [address] [place] [address] Alysa Chinchilla MD [employer] [address] [place] [address] Brandy Weber, PT [address] [place] [address] 09/22/2023 8:45 AM CDT Therapy Visit [facility] [address] [facility] [address] [place] [address] Alysa Chinchilla MD [employer] [address] [place] [address] Kimberly Suh, PT [address] [place] [address] 09/29/2023 10:15 AM CDT Therapy Visit [facility] [address] [facility] [address] [place] [address] Alysa Chinchilla MD [employer] [address] [place] [address] Kimberly Suh, PT [address] [place] [address] 10/06/2023 9:30 AM CDT Therapy Visit [facility] [address] [place] [address] 140 [place] [address] Alysa Chinchilla MD [employer] [address] [place] [address] Kimberly Suh, PT [address] [place] [address] 10/13/2023 9:30 AM CDT Therapy Visit [address] [place] [address] Alysa Chinchilla MD [employer] [address] [place] [address] Kimberly Suh, PT [address] [place] [address] 10/20/2023 10:15 AM CDT Therapy Visit [address] [address] Alysa Chinchilla MD [employer] [address] [place] [address] Kimberly Suh, PT [address] [place] [address] 11/03/2023 11:00 AM CDT Therapy Visit [address] [address] Alysa Chinchilla MD [employer] [address] [place] [address] Kimberly Suh, PT [address] [place] [address] documented as of this encounter Visit Diagnoses Not on filedocumented in this encounter Care Teams Dicer Machine Operator Relationship Specialty Start Date End Date Susie Vogt MD [facility] [address] [place] [address] PCP - General blueprinting machine operator 12/29/18 08/07/23 Alysa Chinchilla MD [facility] [address] [place] [address] PCP - General 08/08/23 Devika Fleming MD [address] [place] [address] Neurology 10/30/21 Devika Fleming MD [address] [place] [address] Assigned Neuroscience Provider 02/23/22 documented as of this encounter
--- OUTSIDE RECORDS SUMMARY | 2023-08-17 12:07 | XMS_ITS | Encounter Summary ---
Author Name Unknown Organization [place] Address [address] [place] [address] Care Team Providers Care Firmware Manager Name Role Phone Susie Vogt MD Primary Care Provider + [phone] Devika Fleming MD Unavailable [phone] Devika Fleming MD Unavailable [phone] Alysa Chinchilla MD Primary Care Provider [phone] Encounter Details Date Type Department Care Team (Late st Contact Info) Description 04/10/2022 MyC Medical Advice [facility] [address] 3rd [place] [address] Devika Fleming MD [address] [place] [address] Social History Tobacco Use Types Packs/Day Years Used Date Smoking Tobacco: Never Smokeless Tobacco: Never Alcohol Use Standard Drinks/Week Comments Not Currently 0 (1 standard drink = 0.6 oz pur e alcohol) PHQ-2 Answer Date Recorded PHQ-2 Score 2 02/18/2022 Sex and Gender Information Value Date Recorded Sex Assigned at Female 02/16/2019 10:59 AM BULLDOZER PRESS OPERATOR Gender Identity Female 02/16/2019 10:59 AM BULLDOZER PRESS OPERATOR Sexual Orientation Bisexual 08/08/2023 1: 47 PM CDT documented as of this encounter Plan of Treatment Upcoming Encounters Date Type Department Care Team (Late st Contact Info) Description 08/21/2023 8:45 AM CDT Therapy Visit [facility] [address] [facility] [address] [place] [address] Alysa Chinchilla MD [employer] [address] [place] [address] Kimberly Suh, PT [address] [place] [address] 08/29/2023 10:15 AM CDT Therapy Visit [facility] [address] [facility] [address] [place] [address] Alysa Chinchilla MD [employer] [address] [place] [address] Brandy Weber, PT [address] [place] [address] 09/22/2023 8:45 AM CDT Therapy Visit [facility] [address] [facility] 140 [place] [address] Alysa Chinchilla MD [employer] [address] [place] [address] Kimberly Suh, PT [address] [place] [address] 09/29/2023 10:15 AM CDT Therapy Visit [facility] [address] [facility] [address] [place] [address] Alysa Chinchilla MD [employer] [address] [place] [address] Kimberly Suh, PT [address] [place] [address] 10/06/2023 9:30 AM CDT Therapy Visit [facility] [address] [place] [address] 140 [place] [address] Alysa Chinchilla MD [employer] [address] [place] [address] Kimberly Suh, PT [address] [place] [address] 10/13/2023 9:30 AM CDT Therapy Visit [address] [place] [address] Alysa Chinchilla MD [employer] [address] [place] [address] Kimberly Suh, PT [address] [place] [address] 10/20/2023 10:15 AM CDT Therapy Visit [address] [address] Alysa Chinchilla MD [employer] [address] [place] [address] Kimberly Suh, PT [address] [place] [address] 11/03/2023 11:00 AM CDT Therapy Visit [address] [address] Alysa Chinchilla MD [employer] [address] [place] [address] Kimberly Suh, PT [address] [place] [address] documented as of this encounter Visit Diagnoses Not on filedocumented in this encounter Care Teams Firmware Manager Relationship Specialty Start Date End Date Susie Vogt MD [facility] [address] [place] [address] PCP - General golf cart assembler 12/29/18 08/07/23 Alysa Chinchilla MD [facility] [address] [place] [address] PCP - General 08/08/23 Devika Fleming MD [address] [place] [address] Neurology 10/30/21 Devika Fleming MD [address] [place] [address] Assigned Neuroscience Provider 02/23/22 documented as of this encounter
--- OUTSIDE RECORDS SUMMARY | 2023-08-17 12:07 | XMS_ITS | Encounter Summary ---
Author Name Unknown Organization [place] Address [address] [place] [address] Care Team Providers Care Limnology Teacher Name Role Phone Susie Vogt MD Primary Care Provider [phone] Devika Fleming MD Unavailable [phone] Devika Fleming MD Unavailable [phone] Alysa Chinchilla MD Primary Care Provider [phone] Encounter Details Date Type Department Care Team (Late st Contact Info) Description 10/07/2021 MyC Medical Advice Initial Department [facility] Social History Tobacco Use Types Packs/Day Years Used Date Smoking Tobacco: Never Smokeless Tobacco: Never Alcohol Use Standard Drinks/Week Comments Not Currently 0 (1 standard drink = 0.6 oz pur e alcohol) PHQ-2 Answer Date Recorded PHQ-2 Score 2 02/22/2019 Sex and Gender Information Value Date Recorded Sex Assigned at Female 02/16/2019 10:59 AM PROFESSOR OF EXERCISE SCIENCE Gender Identity Female 02/16/2019 10:59 AM PROFESSOR OF EXERCISE SCIENCE Sexual Orientation Bisexual 08/08/2023 1: 47 PM CDT documented as of this encounter Plan of Treatment Upcoming Encounters Date Type Department Care Team (Late st Contact Info) Description 08/21/2023 8:45 AM CDT Therapy Visit [facility] [address] [place] [address] [address] [place] [address] Alysa Chinchilla MD [facility] [address] [facility] [address] Kimberly Suh, PT [address] [place] [address] 08/29/2023 10:15 AM CDT Therapy Visit [address] [address] Alysa Chinchilla MD [employer] [address] [place] [address] Brandy Weber, PT [address] [place] [address] 09/22/2023 8:45 AM CDT Therapy Visit [address] [address] Alysa Chinchilla MD [facility] [employer] [address] [place] [address] Kimberly Suh, PT [address] [place] [address] 09/29/2023 10:15 AM CDT Therapy Visit [address] [address] Alysa Chinchilla MD [facility] [address] [place] [address] [place] [address] Kimberly Suh, PT [address] [place] [address] 10/06/2023 9:30 AM CDT Therapy Visit [address] [address] Alysa Chinchilla MD [facility] [address] [place] [address] [place] [address] Kimberly Suh, PT [address] [place] [address] 10/13/2023 9:30 AM CDT Therapy Visit [address] [address] Alysa Chinchilla MD [facility] [address] [place] [address] Kimberly Suh, PT [address] [place] [address] 10/20/2023 10:15 AM CDT Therapy Visit [address] [address] Alysa Chinchilla MD [facility] [address] [place] [address] Kimberly Suh, PT [address] [place] [address] 11/03/2023 11:00 AM CDT Therapy Visit [address] [address] Alysa Chinchilla MD [facility] [address] [place] [address] Kimberly Suh, PT [address] [place] [address] documented as of this encounter Visit Diagnoses Not on filedocumented in this encounter Care Teams Limnology Teacher Relationship Specialty Start Date End Date uSsie Vogt MD [facility] [address] [place] [address] PCP - General secretary to board of commissioners 12/29/18 08/07/23 Alysa Chinchilla MD [facility] [address] [place] [address] PCP - General 08/08/23 Devika Fleming MD [address] [place] [address] Neurology 10/30/21 Devika Fleming MD [address] [place] [address] Assigned Neuroscience Provider 02/23/22 documented as of this encounter
--- OUTSIDE RECORDS SUMMARY | 2023-08-17 12:07 | XMS_ITS | Encounter Summary ---
Author Name Unknown Organization [place] Address [address] [place] [address] Care Team Providers Care Accounting Practice Manager Name Role Phone Susie Vogt MD Primary Care Provider + [phone] Devika Fleming MD Unavailable [phone] Devika Fleming MD Unavailable [phone] Alysa Chinchilla MD Primary Care Provider [phone] Encounter Details Date Type Department Care Team (Late st Contact Info) Description 08/14/2022 MyC Medical Advice [facility] Clinic [address] 3rd [place] [address] Devika Fleming MD [address] [place] [address] Social History Tobacco Use Types Packs/Day Years Used Date Smoking Tobacco: Never Smokeless Tobacco: Never Alcohol Use Standard Drinks/Week Comments Not Currently 0 (1 standard drink = 0.6 oz pur e alcohol) PHQ-2 Answer Date Recorded PHQ-2 Score 2 02/18/2022 Sex and Gender Information Value Date Recorded Sex Assigned at Female 02/16/2019 10:59 AM [employer] Gender Identity Female 02/16/2019 10:59 AM [employer] [address] Sexual Orientation Bisexual 08/08/2023 1: 47 PM CDT documented as of this encounter Plan of Treatment Upcoming Encounters Date Type Department Care Team (Late st Contact Info) Description 08/21/2023 8:45 AM CDT Therapy Visit [facility] [address] [facility] [address] [place] [address] Alysa Chinchilla MD [employer] [address] [place] [address] Kimberly Suh, PT [address] [place] [address] 08/29/2023 10:15 AM CDT Therapy Visit [facility] [address] [facility] [address] [place] [address] Alysa Chinchilla MD [employer] [address] [place] [address] Brandy Weber, PT [address] [place] [address] 09/22/2023 8:45 AM CDT Therapy Visit [facility] [address] [facility] [address] [place] [address] Alysa Chinchilla MD [employer] [address] [place] [address] Kimberly Suh, PT [address] [place] [address] 09/29/2023 10:15 AM CDT Therapy Visit [facility] [address] [facility] [address] [place] [address] Alysa Chinchilla MD [employer] [address] [place] [address] Kimberly Suh, PT [address] [place] [address] 10/06/2023 9:30 AM CDT Therapy Visit [facility] [address] [place] [address] 140 [place] [address] Alysa Chinchilla MD [employer] [address] [place] [address] Kimberly Suh, PT [address] [place] [address] 10/13/2023 9:30 AM CDT Therapy Visit [address] [place] [address] Alysa Chinchilla MD [employer] [address] [place] [address] Kimberly Suh, PT [address] [place] [address] 10/20/2023 10:15 AM CDT Therapy Visit [address] [address] Alysa Chinchilla MD [employer] [address] [place] [address] Kimberly Suh, PT [address] [place] [address] 11/03/2023 11:00 AM CDT Therapy Visit [address] [address] Alysa Chinchilla MD [employer] [address] [place] [address] Kimberly Suh, PT [address] [place] [address] documented as of this encounter Visit Diagnoses Not on filedocumented in this encounter Care Teams Accounting Practice Manager Relationship Specialty Start Date End Date Susie Vogt MD [facility] [address] [place] [address] PCP - General agricultural service technician 12/29/18 08/07/23 Alysa Chinchilla MD [facility] [address] [place] [address] PCP - General 08/08/23 Devika Fleming MD [address] [place] [address] Neurology 10/30/21 Devika Fleming MD [address] [place] [address] Assigned Neuroscience Provider 02/23/22 documented as of this encounter
--- OUTSIDE RECORDS SUMMARY | 2023-08-17 12:07 | XMS_ITS | Encounter Summary ---
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 If you don't hear from a member service representative within 2 business days, please call . Additional Information: EDS-skilled PT (preference for Gabby Suh, Monica Kellogg, or Susi Weber) to eval and treat patient with diffuse hypermobility, instability, and chronic pain as a result Comments Please be aware that coverage of these services is subject to the terms and limitations of your health insurance plan. Call member services at your health plan with any benefit or coverage questions. [facility] will call you to coordinate your care as prescribed by your provider. If you don't hear from a member service representative within 2 business days, please call . Encounter Details Date Type Department Care Team (Late st Contact Info) Description 07/16/2023 Transcribe Orders GENERIC EXTERNAL DATA DEPARTMENT Alysa Chinchilla MD [place] [address] [facility] [place] [address] Classical Chase-Danlos syndrome (Primary Dx); Hypermobility syndrome; Instability of joint; Chronic pain Social History Tobacco Use Types Packs/Day Years [...] Sex Assigned at Female 02/16/2019 10:59 AM GLASS BREAKER Gender Identity Female 02/16/2019 10:59 AM GLASS BREAKER Sexual Orientation Bisexual 08/08/2023 1: 47 PM CDT documented as of this encounter Plan of Treatment Upcoming Encounters Date Type Department Care Team (Late st Contact Info) Description 08/21/2023 8:45 AM CDT Therapy Visit [address] [address] Alysa Chinchilla MD [place] [address] [facility] [address] [place] [address] [place] [address] 08/29/2023 10:15 AM CDT Therapy Visit [address] [address] Alysa Chinchilla MD [place] [address] [facility] [place] [address] Brandy Weber, PT [address] [place], [place] [address] 09/22/2023 8:45 AM CDT Therapy Visit [address] [address] Alysa Chinchilla MD [facility] [address] [place] [address] Kimberly Suh, PT [address] [place] [address] 09/29/2023 10:15 AM CDT Therapy Visit [address] [address] Alysa Chinchilla MD [facility] [address] [place] [address] Kimberly Suh, PT [address] [place] [address] 10/06/2023 9:30 AM CDT Therapy Visit [address] [address] Alysa Chinchilla MD [facility] [id number] [place] [address] [place] [address] Kimberly Suh, PT [address] [place] [address] 10/13/2023 9:30 AM CDT Therapy Visit [address] [address] Alysa Chinchilla MD [facility] [address] Kimberly Suh, PT [address] [place] [address] 10/20/2023 10:15 AM CDT Therapy Visit [address] [address] Alysa Chinchilla MD [employer] [address] [address] [place] [address] [place] [address] 11/03/2023 11:00 AM CDT Therapy Visit [address] [address] Alysa Chinchilla MD [place] [id number] [place] [address] Kimberly Suh, PT [address] [place] [address] Scheduled Referrals Name Type Priority Associated Diagnoses Orde r Schedule Physical Therapy Carrier Blower Referral Referral Routine 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 Chronic pain Ordered: 07/16/2023 documented as of this encounter Visit Diagnoses Diagnosis 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
--- OUTSIDE RECORDS SUMMARY | 2023-08-17 12:07 | XMS_ITS | Encounter Summary ---
Author Name Unknown Organization [facility] Address [address] [place] [address] Care Team Providers Care Hand Engraver Name Role Phone Susie Vogt MD Primary Care Provider + [phone] Devika Fleming MD Unavailable [phone] Devika Fleming MD Unavailable [phone] Alysa Chinchilla MD Primary Care Provider [phone] Reason for Visit * Reason Onset Date Comments Refill Request 10/12/2020 Encounter Details Date Type Department Care Team (Late st Contact Info) Description 10/12/2020 MyC Refill [facility] [address] [address] Lali Orr MD [address] [place] [address] Refill Request Social History Tobacco Use Types Packs/Day Years Used Date Smoking Tobacco: Never Smokeless Tobacco: Never Alcohol Use Standard Drinks/Week Comments Not Currently 0 (1 standard drink = 0.6 oz pur e alcohol) PHQ-2 Answer Date Recorded PHQ-2 Score 2 02/22/2019 Sex and Gender Information Value Date Recorded Sex Assigned at Female 02/16/2019 10:59 AM LUNCH COUNTER MANAGER Gender Identity Female 02/16/2019 10:59 AM LUNCH COUNTER MANAGER Sexual Orientation Bisexual 08/08/2023 1: 47 PM CDT documented as of this encounter Plan of Treatment Upcoming Encounters Date Type Department Care Team (Late st Contact Info) Description 08/21/2023 8:45 AM CDT Therapy Visit [facility] [address] [place] [address] [address] [place] [address] Alysa Chinchilla MD [employer] [facility] [id number] [place] [address] Kimberly Suh, PT [address] [place] [address] 08/29/2023 10:15 AM CDT Therapy Visit [address] [place] [address] Alysa Chinchilla MD [employer] [facility] [address] [place] [address] Brandy Weber, PT [address] [place] [address] 09/22/2023 8:45 AM CDT Therapy Visit [address] [place] [address] Alysa Chinchilla MD [employer] [address] [place] [address] Kimberly Suh, PT [address] [place] [address] 09/29/2023 10:15 AM CDT Therapy Visit [address] [place] [address] Alysa Chinchilla MD [employer] [address] [place] [address] Kimberly Suh, PT [address] [place] [address] 10/06/2023 9:30 AM CDT Therapy Visit [address] [address] Alysa Chinchilla MD [employer] [facility] [employer] [address] [place] [address] Kimberly Suh, PT [address] [place] [address] 10/13/2023 9:30 AM CDT Therapy Visit [address] [address] Alysa Chinchilla MD [employer] [address] [place] [address] Kimberly Suh, PT [address] [place] [address] 10/20/2023 10:15 AM CDT Therapy Visit [address] [address] Alysa Chinchilla MD [employer] [address] [place] [address] Kimberly Suh, PT [address] [place] [address] 11/03/2023 11:00 AM CDT Therapy Visit [address] [address] Alysa Chinchilla MD [employer] [address] [place] [address] Kimberly Suh, PT [address] [place] [address] documented as of this encounter Visit Diagnoses Diagnosis Chronic tension-type headache, intractable Chronic tension type headache Migraine with aura and without status migrainosus, not intractable Migraine with aura, without mention of intractable migraine without mention of status migrainosus documented in this encounter Care Teams Hand Engraver Relationship Specialty Start Date End Date Susie Vogt MD [facility] [address] [place] [address] PCP - General web design intern 12/29/18 08/07/23 Alysa Chinchilla MD [facility] [address] [place] [address] PCP - General 08/08/23 Devika Fleming MD [address] [place] [address] Neurology 10/30/21 Devika Fleming MD [address] [place] [address] Assigned Neuroscience Provider 02/23/22 documented as of this encounter
--- OUTSIDE RECORDS SUMMARY | 2023-08-17 12:07 | XMS_ITS | Encounter Summary ---
Author Name Unknown Organization [facility] Address [address] [place] [address] Care Team Providers Care Community Service Director Name Role Phone Susie Vogt MD Primary Care Provider [phone] Devika Fleming MD Unavailable [phone] Devika Fleming MD Unavailable [phone] Alysa Chinchilla MD Primary Care Provider [phone] Encounter Details Date Type Department Care Team (Late st Contact Info) Description 10/16/2020 MyC Medical Advice [facility] [address] [address] Susi Gloria, ISIAH Social History Tobacco Use Types Packs/Day Years Used Date Smoking Tobacco: Never Smokeless Tobacco: Never Alcohol Use Standard Drinks/Week Comments Not Currently 0 (1 standard drink = 0.6 oz pur e alcohol) PHQ-2 Answer Date Recorded PHQ-2 Score 2 02/22/2019 Sex and Gender Information Value Date Recorded Sex Assigned at Female 02/16/2019 10:59 AM OIL MIXER Gender Identity Female 02/16/2019 10:59 AM OIL MIXER Sexual Orientation Bisexual 08/08/2023 1: 47 PM CDT documented as of this encounter Plan of Treatment Upcoming Encounters Date Type Department Care Team (Late Contact Info) Description 08/21/2023 8:45 AM CDT Therapy Visit [facility] [address] [place], [place] [id number] Alysa Chinchilla MD [facility] [address] [place] [address] Kimberly Suh, PT [address] [place] [address] 08/29/2023 10:15 AM CDT Therapy Visit [address] [address] Alysa Chinchilla MD [employer] [facility] [address] [place] [address] Brandy Weber, PT [address] [place] [address] 09/22/2023 8:45 AM CDT Therapy Visit [address] [address] Alysa Chinchilla MD [employer] [facility] [address] [place] [address] Kimberly Suh, PT [address] [place] [address] 09/29/2023 10:15 AM CDT Therapy Visit [address] [address] Alysa Chinchilla MD [facility] [address] [place] [address] Kimberly Suh, PT [address] [place] [address] 10/06/2023 9:30 AM CDT Therapy Visit [address] [address] Alysa Chinchilla MD [facility] [address] [place] [address] Kimberly Suh, PT [address] [place] [address] 10/13/2023 9:30 AM CDT Therapy Visit [address] [address] Alysa Chinchilla MD [facility] [address] [place] [address] Kimberly Suh, PT [address] [place] [address] 10/20/2023 10:15 AM CDT Therapy Visit [address] [address] Alysa Chinchilla MD [employer] [facility] [address] [place] [address] Kimberly Suh, PT [address] [place] [address] 11/03/2023 11:00 AM CDT Therapy Visit [address] [address] Alysa Chinchilla MD [employer] [facility] [address] [place] [address] Kimberly Suh, PT [address] [place] [address] documented as of this encounter Visit Diagnoses Not on filedocumented in this encounter Care Teams Community Service Director Relationship Specialty Start Date End Date Susie Vogt MD [facility] [address] [place] [address] PCP - General disease intervention specialist 12/29/18 08/07/23 Alysa Chinchilla MD [facility] [address] [place] [address] PCP - General 08/08/23 Devika Fleming MD [address] [place] [address] [id number] Neurology 10/30/21 Devika Fleming MD [address] [place] [address] 069785 Assigned Neuroscience Provider 02/23/22 documented as of this encounter
--- OUTSIDE RECORDS SUMMARY | 2023-08-17 12:07 | XMS_ITS | Encounter Summary ---
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 Chronic pain [address] [address] Referral ID Status Reason Start Date Expiration Date V isits Requested Visits Authorized [id number] Authorized 08/08/2023 04/06/2024 [id number] Encounter Details Date Type Department Care Team (Late st Contact Info) Description 08/13/2023 9:30 AM CDT Therapy Visit [facility] [address] [place] [address] [address] [place] [address] Alysa Chinchilla MD [facility] [address] [place] [address] Monica Kellogg, PT [address] [place] [address] Chase-Danlos syndrome (Primary Dx) Social History Tobacco Use Types Packs/Day Years [...] Sex Assigned at Female 02/16/2019 10:59 AM BACK LINE COOK Gender Identity Female 02/16/2019 10:59 AM BACK LINE COOK Sexual Orientation Bisexual 08/08/2023 1: 47 PM CDT documented as of this encounter Progress Notes * Monica Kellogg, PT - 08/13/2023 9:30 AM CDT PHYSICAL THERAPY EVALUATION Type of Visit: Evaluation See electronic medical record for Abuse and Falls Screening details. Subjective Diagnosed with cEDS 6 months ago. In added: POTS and MCAS to my diagnosis list. Did do PTmore locally, from [place]. Since March, using more aids: I fell in March - R hip tends tosublux/dislocates - got up off the couch and it gave out. Did some hand therapy, locally in [place] too. Got some splints, gloves, etc. Struggles with mousing at work. More trouble walking distances. Going to see Paty for compression - Will get it next . No imaging for neck. Seeing someone else for bodywork stuff: Jose Carlos: myofascial counterstrain (in [place]) Getting 1L of fluids every other week. Presenting condition or subjective complaint: EDS Date of onset: Relevant medical history: Depression; Dizziness; Migraines or headaches; Overweight; Pain at night or rest; Severe headaches; Significant weakness Dates & types of surgery: (12/22/12 and 08/14/18) gall bladder 01/2013 Prior diagnostic imaging/testing results: MRI; CT scan; X-ray Prior therapy history for the same diagnosis, illness or injury: Yes OT and PT Prior Level of Function Transfers: Independent Ambulation: Independent ADL: Independent Living Environment Social support: With a significant other or spouse Type of home: House; 1 level; Basement Stairs to enter the home: Yes 4 Is there a railing: Yes Ramp: No Stairs inside the home: Yes 16 Is there a railing: Yes Help at home: None Equipment owned: Straight Cane Employment: Yes Clinical mental health therapist Hobbies/Interests: Ceramics, used to go biking and walking Patient goals for therapy: Walk comfortably, stand for longer periods, sit without discomfort, sleep better, reduce sublexations, reduce pain and improve mobility - big cycling family (dont feel stable on the bike-going to get an E- bike) would like to be able to go a few miles. Hosting a bike ride (helping with check in and registration) bed positioning is hard Pain assessment: Pain present - R hip, B shoulders/knees, neck pain. Reports really all joints hurt, but R hip subluxes the most. Objective Cognitive Status Examination Orientation: Oriented to person, place and time Level of Consciousness: Alert Follows Commands and Answers Questions: 100% of the time Personal Safety and Judgement: Intact Memory: Intact Hickman Impact of Hypermobility Questionnaire: 249/360=69% Vitals: seated LUE: HR:104bpm, O2: 96%, BP: 148/93 OBSERVATION: Patient shifting in chair throughout session, likes to have legs crossed. INTEGUMENTARY: Intact POSTURE: See above - mild forward head/shoulders PALPATION: N/A RANGE OF MOTION: Beighten scale not performed today STRENGTH: Not formally assessed but functional strength present BED MOBILITY: Patient is independent with bed mobility, but reports difficulty getting into a comfortable position to sleep. R hip hurts a lot, like to sleep on side. Tried getting a wedge for R shoulder, but put more pressure on hip. TRANSFERS: Independent WHEELCHAIR MOBILITY: N/A GAIT: Level of [place]: Independent Assistive Device(s): None, Patient typically does not use an assistive device, but is borrowing a cane from her mom - does not find this helpful as it is too short for her and hurts her wrists. Gait Deviations: Patient ambulates with over pronationg of B feet, hyperextension at knees and increased mobility at pelvis. Gait Distance: Distance not formally tested today, as pt reports she will be in a lot of pain tomorrow if she walks too far. Decided to discuss walking aids instead. Stairs: Not formally assessed, but pt performs at home with difficulty. BALANCE: Patient reports 1 fall in March d/t R hip giving out. Feels off balance when walking without and assistive device. Assessment & Plan CLINICAL IMPRESSIONS Medical Diagnosis: Treatment Diagnosis: Impression/Assessment: Patient is a 38 year old female with pain, instability, reduced endurance, imbalance and fatigue complaints. The following significant findings have been identified: Pain, Impaired balance, Decreased proprioception, Impaired gait, Impaired muscle performance, Decreased activity tolerance, Impaired posture, Instability, and Dizziness. These impairments interfere with their ability to perform self care tasks, work tasks, recreational activities, department chairperson, household mobility, and community mobility as compared to previous level of function. Clinical Decision Making (Complexity): Clinical Presentation: Evolving/Changing Clinical Presentation Rationale: based on medical and personal factors listed in PT evaluation Clinical Decision Making (Complexity): Moderate complexity PLAN OF CARE Treatment Interventions: Modalities: per therapist discretion Interventions: Gait Training, Manual Therapy, Neuromuscular Re-education, Therapeutic Activity, Therapeutic Exercise, Self-Care/Home Management, Orthotic Fitting/Training Sales Manager Goals Frequency of Treatment: Duration of Treatment: Education Assessment: Risks and benefits of evaluation/treatment have been explained. Patient/Family/caregiver agrees with Plan of Care. Evaluation Time: Signing Clinician: Monica Kellogg PT * Monica Kellogg, PT - 08/13/2023 9:13 AM CDT 08/08/23 1413 A. During the past 7 days, have you had pain in any of the following areas? Shoulders Yes Elbows Yes Wrists Yes Hands Yes Hips Yes Knees Yes Ankles Yes Feet Yes Neck Yes Back Yes B. We would like to know how often you have experienced pain and fatigue due to hypermobility during the past 7 days. Please select the number which best reflects... 1. your average level of pain during the past 7 days 5 2. your worst level of pain during the past 7 days 8 3. how much pain you have had when walking during the past 7 days 6 4. how much pain you have had when resting during the past 7 days 4 5. your average level of fatigue during the past 7 days 8 6. the effect fatigue has had on your life during the past 7 days 9 7. how well you have coped with fatigue during the past 7 days 3 C. Please select the box which best describes how much, during the past 7 days, hypermobility has affected... 8. the footwear you have worn 5 9. the transport you have used 4 D. How often..... 10. have you had unexpected pain (that was not an expected consequence of something that you have done) during the past 7 days? 4 11. has your wrist or hand given way, leading you to drop, or nearly drop something during the past7 days? 3 12. has your ankle, knee or hip given way, leading to a stumble or trip during the past 7 days? 3 13. have you lost your balance during the past 7 days? 3 14, have joints seized up during the past 7 days? 2 15. has it felt like a joint has slipped out of place during the past 7 days? 2 16. have you had muscle cramps or spasms during the past 7 days? 4 17. has your sleep been disturbed due to pain or discomfort during the past 7 days? 5 E. How much difficulty have you had with the following tasks during the past 7 days due to hypermobility? 18. Bending or twisting 4 19. Squatting 4 20. Walking on uneven ground 4 21. Carrying a heavy bag, such as a shopping bag 4 22. Reaching up to high shelves 4 23. Pulling or pushing heavy doors 4 24. Opening a tight or new jar 4 25. Writing for more than 30 minutes 4 26. Peeling or chopping vegetables 4 27. Carrying a saucepan full of water 4 F. How much discomfort would you have had after the following activities during the past 7 days? 28. Standing up for more than 30 minutes 4 29. Sitting in a chair for more than 30 minutes 3 30. Standing up after sitting for more than 30 minutes 4 31. Climbing several flights of stairs 5 32. Going down several flights of stairs 4 33. Walking at your own pace for a few miles 5 34. Walking briskly for a few miles 5 35. Wandering around shops or museums 5 36. Bending or twisting 4 37. Squatting 5 G. Please select the number which best indicates... 38. how much you have felt in control of the movement of your body and limbs during the past 7 days1 39. how accurately you have been able to predict how you might feel in general over the past 7 days5 40. how frustrated you have felt with hypermobility during the past 7 days 10 41. how strong your body and limbs have felt generally over the past 7 days 7 42. how ???tight???, ???strong???, ???held together??? your body and limbs have felt generally during the past 7 days 6 43. how able you have felt to control your fatigue in the past 7 days 9 44. how much you have felt in control of your pain in the past 7 days 9 45. how much you have felt in control of your life in the past 7 days 6 H. Thinking about what you are usually able to do, how much has hypermobility interfered with your activities during the past 7 days? Please select the number which best shows... 46. how much hypermobility has interfered with your daily activities during the past 7 days? 7 47. how much difficulty you have had in carrying out your desired level of exercise during the past7 days 10 I. Please select the response which best describes your agreement with the following statements 48. My body does not feel strong 1 49. I am concerned about my condition getting worse 1 50. I feel frustrated with my condition 1 51. My coordination is poor 1 52. I feel that I could trip or fall at any time 2 53. I can control the movement of my limbs 2 54. I feel that I can remain physically active 5 55. I feel that I can manage my condition 4 Total Group B. subscore 43 Group C. and D. subscore 35 Group E. subscore 40 Group F. subscore 44 Group G. and H. subscore 70 Group I. subscore 17 Total Score 249 documented in this encounter Plan of Treatment Upcoming Encounters Date Type Department Care Team (Late st Contact Info) Description 08/21/2023 8:45 AM CDT Therapy Visit [facility] [address] [place] [address] [address] [place] [address] Alysa Chinchilla MD [employer] [facility] [address] [facility] [place]OS HERNANDEZ [address] Kimberly Suh, PT [address] [place] [address] 08/29/2023 10:15 AM CDT Therapy Visit [address] [address] Alysa Chinchilla MD [employer] [address] [place] [address] Brandy Weber, PT [address] [place], [place] [address] 09/22/2023 8:45 AM CDT Therapy Visit [address] [address] lAysa Chinchilla MD [employer] [id number] [place] [address] Kimberly Suh, PT [address] [place] [address] 09/29/2023 10:15 AM CDT Therapy Visit [address] [address] Alysa Chinchilla MD [employer] [id number] [place] [address] [place] [address] Kimberly Suh, PT [address] [place] [address] 10/06/2023 9:30 AM CDT Therapy Visit [address] [address] Alysa Chinchilla MD [employer] [address] [place] [address] Kimberly Suh, PT [address] [place] [address] 10/13/2023 9:30 AM CDT Therapy Visit [address] [address] Alysa Chinchilla MD [employer] [address] [place] [address] Kimberly Suh, PT [address] [place] [address] 10/20/2023 10:15 AM CDT Therapy Visit [address] [address] Alysa Chinchilla MD [employer] [address] [place] [address] Kimberly Suh, PT [address] [place] [address] 11/03/2023 11:00 AM CDT Therapy Visit [address] [address] Alysa Chinchilla MD [employer] [address] [place] [address] Kimberly Suh, PT [address] [place] [address] Scheduled Referrals Name Type Priority Associated Diagnoses Orde r Schedule Physical Therapy It Infrastructure Specialist Referral Referral Routine 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
--- OUTSIDE RECORDS SUMMARY | 2023-08-17 12:07 | XMS_ITS | Encounter Summary ---
Author Name Unknown Organization [facility] Address [address] [place] [address] Care Team Providers Care Structural Steel Worker Helper Name Role Phone Susie Vogt MD Primary Care Provider + [phone] Devika Fleming MD Unavailable [phone] Devika Fleming MD Unavailable [phone] Devika Fleming MD Unavailable [phone] Alysa Chinchilla MD Primary Care Provider [phone] Reason for Visit * Reason Onset Date Comments Refill Request 04/07/2020 Encounter Details Date Type Department Care Team (Late st Contact Info) Description 04/07/2020 [facility] [address] [address] Lali Orr MD [address] [place] [address] Refill Request Social History Tobacco Use Types Packs/Day Years Used Date Smoking Tobacco: Never Smokeless Tobacco: Never Alcohol Use Standard Drinks/Week Comments Not Currently 0 (1 standard drink = 0.6 oz pur e alcohol) PHQ-2 Answer Date Recorded PHQ-2 Score 2 02/22/2019 Sex and Gender Information Value Date Recorded Sex Assigned at Female 02/16/2019 10:59 AM PULPWOOD BUYER Gender Identity Female 02/16/2019 10:59 AM PULPWOOD BUYER Sexual Orientation Bisexual 08/08/2023 1: 47 PM CDT documented as of this encounter Miscellaneous Notes * Telephone Encounter - Jo Parson CMA - 04/10/2020 8:53 AM PULPWOOD BUYER Rx Authorization: ??? Requested Medication/ Dose: Nortriptyline 10MG caps ??? Date last refill ordered: 02/21/20 ??? Quantity ordered: 90 caps ??? # refills: ??? Date of last clinic visit with ordering provider: 02/22/19 ??? Date of next clinic visit with ordering provider: F/U 1 year ??? All pertinent protocol data (lab date/result): ??? Include pertinent information from patients message: WOOD BUYER documented in this encounter Plan of Treatment Upcoming Encounters Date Type Department Care Team (Late st Contact Info) Description 08/21/2023 8:45 AM CDT Therapy Visit [address] [address] Alysa Chinchilla MD [employer] [address] [place] [address] Kimberly Suh, PT [address] [place] [address] 08/29/2023 10:15 AM CDT Therapy Visit [address] [address] Alysa Chinchilla MD [employer] [address] [place] [address] Brandy Weber, PT [address] [place] [address] 09/22/2023 8:45 AM CDT Therapy Visit [address] [address] Alysa Chinchilla MD [employer] [address] [place] [address] Kimberly Suh, PT [address] [place] [address] 09/29/2023 10:15 AM CDT Therapy Visit [address] [address] Alysa Chinchilla MD [employer] [facility] [employer] [address] [place] [address] Kimberly Suh, PT [address] [place] [address] 10/06/2023 9:30 AM CDT Therapy Visit [address] [address] Alysa Chinchilla MD [employer] [address] [place] [address] Kimberly Suh, PT [address] [place] [address] 10/13/2023 9:30 AM CDT Therapy Visit [address] [address] Alysa Chinchilla MD [employer] [address] [place] [address] Kimberly Suh, PT [address] [place] [address] 10/20/2023 10:15 AM CDT Therapy Visit [address] [address] Alysa Chinchilla MD [employer] [address] [place] [address] Kimberly Suh, PT [address] [place] [address] 11/03/2023 11:00 AM CDT Therapy Visit [facility] [address] [facility] [address] [place] [address] Alysa Chinchilla MD [employer] [address] [place] [address] Kimberly Suh, PT [address] [place] [address] documented as of this encounter Visit Diagnoses Diagnosis Chronic tension-type headache, intractable Chronic tension type headache Migraine with aura and without status migrainosus, not intractable Migraine with aura, without mention of intractable migraine without mention of status migrainosus documented in this encounter Care Teams Structural Steel Worker Helper Relationship Specialty Start Date End Date Susie Vogt MD [facility] [address] [place] [address] PCP - General rotor assembler 12/29/18 08/07/23 Alysa Chinchilla MD [employer] [address] [place] [address] PCP - General 08/08/23 Devika Fleming MD [address] [place] [address] Assigned Neuroscience Provider 01/28/20 08/26/20 Devika Fleming MD [address] [place] [address] Neurology 10/30/21 Devika Fleming MD [address] [place] [address] Assigned Neuroscience Provider 02/23/22 documented as of this encounter
--- OUTSIDE RECORDS SUMMARY | 2023-08-17 12:07 | XMS_ITS | Encounter Summary ---
Author Name Unknown Organization [facility] Address [address] [place] [address] Care Team Providers Care Stove Cleaner Name Role Phone Devika Fleming MD Unavailable [phone] Devika Fleming MD Unavailable [phone] Alysa Chinchilla MD Primary Care Provider [phone] Encounter Details Date Type Department Care Team (Latest Contact Info) Description 08/08/2023 Travel Social History Tobacco Use Types Packs/Day [...] Sex Assigned at Female 02/16/2019 10:59 AM FISH ROE PROCESSOR Gender Identity Female 02/16/2019 10:59 AM FISH ROE PROCESSOR Sexual Orientation Bisexual 08/08/2023 1: 47 PM CDT documented as of this encounter Plan of Treatment Upcoming Encounters Date Type Department Care Team (Late st Contact Info) Description 08/21/2023 8:45 AM CDT Therapy Visit [facility] [address] [place] [address] [address] [place] [address] Alysa Chinchilla MD [facility] [address] [place] [address] Kimberly Suh, PT [address] [place] [address] 08/29/2023 10:15 AM CDT Therapy Visit [address] [place] [address] Alysa Chinchilla MD [employer] [address] [place] [address] Brandy Weber, PT [facility] [address] [place] [address] 09/22/2023 8:45 AM CDT Therapy Visit [address] [place] [address] Alysa Chinchilla MD [employer] [address] [place] [address] Kimberly Suh, PT [address] [place] [address] 09/29/2023 10:15 AM CDT Therapy Visit [address] [address] Alysa Chinchilla MD [employer] [facility] [address] [place] [address] Kimberly Suh, PT [address] [place] [address] 10/06/2023 9:30 AM CDT Therapy Visit [address] [place] [address] Alysa Chinchilla MD [employer] [facility] [address] [place] [address] [place] [address] [place] [address] 10/13/2023 9:30 AM CDT Therapy Visit [address] [address] Alysa Chinchilla MD [employer] [facility] [address] [place] [address] Kimberly Suh, PT [address] [place] [address] 10/20/2023 10:15 AM CDT Therapy Visit [address] [address] Alysa Chinchilla MD [facility] [id number] [place] [address] Kimberly Suh, PT [address] [place] [address] 11/03/2023 11:00 AM CDT Therapy Visit [address] [address] Alysa Chinchilla MD [facility] [address] [place] [address] [place] [address] Kimberly Suh, PT [address] [place] [address] documented as of this encounter Visit Diagnoses Not on filedocumented in this encounter Care Teams Stove Cleaner Relationship Specialty Start Date End Date Alysa Chinchilla MD [employer] [facility] [address] [place], [place] [address] [address] PCP - General 5/3/24 Devika Fleming MD [address] [place], [place] [address] Neurology 10/30/21 Devika Fleming MD [address] [place] [address] Assigned Neuroscience Provider 02/23/22 documented as of this encounter
--- OUTSIDE RECORDS SUMMARY | 2023-08-17 12:07 | XMS_ITS | Encounter Summary ---
Author Name Unknown Organization [facility] Address [address] [place] [address] Care Team Providers Care Microbiology Quality Control Technician Name Role Phone Susie Vogt MD Primary Care Provider + [phone] Devika Fleming MD Unavailable [phone] Devika Fleming MD Unavailable [phone] Alysa Chinchilla MD Primary Care Provider [phone] Reason for Visit * Reason Onset Date Comments Refill Request 10/07/2020 Encounter Details Date Type Department Care Team (Late st Contact Info) Description 10/07/2020 MyC Refill [facility] Neurology [address] [address] Lali Orr MD [address] [place] [address] Refill Request Social History Tobacco Use Types Packs/Day Years Used Date Smoking Tobacco: Never Smokeless Tobacco: Never Alcohol Use Standard Drinks/Week Comments Not Currently 0 (1 standard drink = 0.6 oz pur e alcohol) PHQ-2 Answer Date Recorded PHQ-2 Score 2 02/22/2019 Sex and Gender Information Value Date Recorded Sex Assigned at Female 02/16/2019 10:59 AM GUILLOTINE TRIMMER Gender Identity Female 02/16/2019 10:59 AM GUILLOTINE TRIMMER Sexual Orientation Bisexual 08/08/2023 1: 47 PM CDT documented as of this encounter Plan of Treatment Upcoming Encounters Date Type Department Care Team (Late st Contact Info) Description 08/21/2023 8:45 AM CDT Therapy Visit [facility] [address] [place] [address] 140 [place] [address] Alysa Chinchilla MD [employer] [id number] [place] [address] Kimberly Suh, PT [address] [place] [address] 08/29/2023 10:15 AM CDT Therapy Visit [address] 140 [place] [address] Alysa Chinchilla MD [employer] [address] [place] [address] Brandy Weber, PT [address] [place] [address] 09/22/2023 8:45 AM CDT Therapy Visit [address] 140 [place] [address] Alysa Chinchilla MD [employer] [address] [place] [address] Kimberly Suh, PT [address] [place] [address] 09/29/2023 10:15 AM CDT Therapy Visit [address] 140 [place] [address] Alysa Chinchilla MD [employer] [address] [place] [address] Kimberly Suh, PT [address] [place] [address] 10/06/2023 9:30 AM CDT Therapy Visit [address] [address] Alysa Chinchilla MD [facility] [employer] [address] [place] [address] Kimberly Suh, PT [address] [place] [address] 10/13/2023 9:30 AM CDT Therapy Visit [address] [address] Alysa Chinchilla MD [employer] [address] [place] [address] Kimberly Suh, PT [address] [place] [address] 10/20/2023 10:15 AM CDT Therapy Visit [address] [address] Alysa Chinchilla MD [employer] [address] [place] [address] Kimberly Suh, PT [address] [place] [address] 11/03/2023 11:00 AM CDT Therapy Visit [address] [address] Alysa Chinchilla MD [employer] [address] [place] [address] Kimberly Suh, PT [address] [place] [address] documented as of this encounter Visit Diagnoses Diagnosis Chronic tension-type headache, intractable Chronic tension type headache Migraine with aura and without status migrainosus, not intractable Migraine with aura, without mention of intractable migraine without mention of status migrainosus documented in this encounter Care Teams Microbiology Quality Control Technician Relationship Specialty Start Date End Date Susie Vogt MD [facility] [address] [place] [address] PCP - General airfield manager 12/29/18 08/07/23 Alysa Chinchilla MD [facility] [address] [place] [address] PCP - General 08/08/23 Devika Fleming MD [address] [place] [address] Neurology 10/30/21 Devika Fleming MD [address] [place] [address] Assigned Neuroscience Provider 02/23/22 documented as of this encounter
--- OUTSIDE RECORDS SUMMARY | 2023-08-17 12:07 | XMS_ITS | Clinical Summary ---
Author Name Unknown Organization [facility] Address [address] [place] [address] Care Team Providers Care Club Director Name Role Phone Devika Fleming MD Unavailable [phone] Devika Fleming MD Unavailable [phone] Alysa Chinchilla MD Primary Care Provider [phone] Allergies Active Allergy Reactions Criticality Noted Date [...] Take 3 tabs at bedtime. 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 Travel 08/08/2023 Travel 07/16/2023 Transcribe Orders GENERIC EXTERNAL DATA DEPARTMENT Alysa Chinchilla MD Classical Chase-Danlos syndrome (Primary Dx); Hypermobility syndrome; Instability of joint; Chronic pain from Last 3 Months Immunizations Name Administration [...] Sex Assigned at Female 02/16/2019 10:59 AM MACHINE REPAIRER MAINTENANCE Gender Identity Female 02/16/2019 10:59 AM MACHINE REPAIRER MAINTENANCE Sexual Orientation Bisexual 08/08/2023 1: 47 PM CDT Last Filed Vital Signs Vital Sign Reading Time Taken Comments Blood Pressure 123/83 02/22/2019 8:28 AM MACHINE REPAIRER MAINTENANCE Pulse 67 02/22/2019 8:28 AM MACHINE REPAIRER MAINTENANCE Temperature - - Respiratory Rate - - Oxygen Saturation - - Inhaled Oxygen Concentration - - Weight 104 kg (229 lb 4.8 oz) 02/22/2019 8:28 AM MACHINE REPAIRER MAINTENANCE Height 170.2 cm (5' 7) 02/22/2019 8:28 AM MACHINE REPAIRER MAINTENANCE Body Mass Index 35.91 02/22/2019 8:28 AM MACHINE REPAIRER MAINTENANCE Plan of Treatment Upcoming Encounters Date Type Department Care Team (Late st Contact Info) Description 08/21/2023 8:45 AM CDT Therapy Visit [address] [address] Alysa Chinchilla MD [employer] [id number] [place] [address] Kimberly Suh, PT [address] [place] [address] 08/29/2023 10:15 AM CDT Therapy Visit [address] [address] Alysa Chinchilla MD [employer] [address] [place] [address] Brandy Weber, PT [address] [place] [address] 09/22/2023 8:45 AM CDT Therapy Visit [address] [address] Alysa Chinchilla MD [employer] [address] [place] [address] Kimberly Suh, PT [address] [place] [address] 09/29/2023 10:15 AM CDT Therapy Visit [address] [address] Alysa Chinchilla MD [employer] [address] [place] [address] Kimberly Suh, PT [address] [place] [address] 10/06/2023 9:30 AM CDT Therapy Visit [address] [address] Alysa Chinchilla MD [employer] [address] [place] [address] Kimberly Suh, PT [address] [place] [address] 10/13/2023 9:30 AM CDT Therapy Visit [address] [address] Alysa Chinchilla MD [employer] [id number] [place] [address] Kimberly Suh, PT [address] [place] [address] 10/20/2023 10:15 AM CDT Therapy Visit [address] [address] Alysa Chinchilla MD [employer] [id number] [place] [address] Kimberly Suh, PT [address] [place] [address] 11/03/2023 11:00 AM CDT Therapy Visit [address] [address] Alysa Chinchilla MD [facility] [address] [facility] [address] Kimberly Suh, PT [address] [facility] [place] [address] Health Maintenance Due Date Last Done Comments ADVANCE CARE PLANNING 1984 ANNUAL REVIEW OF HM ORDERS 1984 DEPRESSION ACTION PLAN 1984 GLUCOSE 1984 PHQ-9 1984 YEARLY PREVENTIVE VISIT 1984 HIV SCREENING 1999 HEPATITIS C SCREENING 2002 PAP 10/14/2022 10/15/2019 COVID-19 Vaccine (2022- season) 2022 02/22/2021, 06/29/2020, 05/31/2020 DTAP/TDAP/TD IMMUNIZATION (4 - Td or Tdap) 07/15/2028 07/15/2018, 03/08/2011, 07/27/1996 HEPATITIS B IMMUNIZATION Completed 999, 08/08/1998, 07/07/1998 MENINGITIS IMMUNIZATION Completed 02/10/2003 INFLUENZA VACCINE Completed 01/27/2023, , 02/14/2021, Additional history exists HPV IMMUNIZATION Aged Out No longer e [...] on patient's age to complete this topic Procedures Procedure Name Priority Date/Time Associated Diagnosis Comments HCL PAP SMEAR Routine 08/30/1998 1:18 PM CDT Gynecologic Examination from Last 3 Months or Most Recently Relevant to Health Maintenance Results * PAP SMEAR (08/30/1998 1:18 PM CDT) Unlabelled [facility] Biopsy Sent [facility] Source VAG,CERV,E NDOCERV [facility] LMP POST [facility] PARA 3 [facility] 2 [facility] Clinical History [facility]NR [facility] Therapy DNR [facility] Last Pap Diagnosis WITHIN NORMAL LIMITS [facility] PAP Date [id number] [facility] Specimen # DNR [facility] Tissue DNR [facility] Tissue Date DNR [facility] Statement of Adequacy [facility] Comment: SATISFACTORY FOR INTERPRETATION POST MENOPAUSAL PATIENT. ??NO ENDOCERVICAL CELLS SEEN. General Categorization DNR [facility] Descriptive Diagnosis [facility] Comment: WITHIN NORMAL LIMITS ATROPHIC CELL PATTERN Recommendations DNR QUES [facility] DNR 114,,,,,, [facility] DNR DNR [facility] DNR DNR [facility] DNR DNR [facility] . [facility] Comment: ?PAP SMEARS ARE SUBJECT TO BOTH FALSE NEGATIVE AND FALSE ? POSITIVE RESULTS EVIDENCED BY DATA PUBLISHED IN THE ? MEDICAL LITERATURE. ??YOUR PATIENT'S RESULT SHOULD BE ? INTERPRETED IN THIS CONTEXT, TOGETHER WITH THE PATIENT'S ? HISTORY AND CLINICAL FINDINGS. TESTING LOCATION ? THIS [facility] ? [address] [place] [address]. [id number] ? PHONE NUMBERS FOR CYTOLOGY INQUIRES, INCLUDING SLIDE REQUESTS ? EXT. [id number] ?? EXT. [id number] 08/28/1998 Rosalinda Zamarripa MD LABORATORY Performing Organization Address City/State/[facility] Co de Phone Number [facility] from Last 3 Months or Most Recently Relevant to Health Maintenance Care Teams Club Director Relationship Specialty Start Date End Date Alysa Chinchilla MD [employer] [facility] [address] [place] [address] PCP - General 08/08/23 Deivka Fleming MD [address] [place] [address] Neurology 10/30/21 Devika Fleming MD [address] [place] [address] Assigned Neuroscience Provider 02/23/22
--- OUTSIDE RECORDS SUMMARY | 2023-08-17 12:07 | XMS_ITS | Encounter Summary ---
Author Name Unknown Organization [facility] Address [address] [place] [address] Care Team Providers Care J2Ee Android Developer Name Role Phone Susie Vogt MD Primary Care Provider [phone] Devika Fleming MD Unavailable [phone] Devika Fleming MD Unavailable [phone] Devika Fleming MD Unavailable [phone] Alysa Chinchilla MD Primary Care Provider [phone] Encounter Details Date Type Department Care Team (Late st Contact Info) Description 06/02/2019 [facility] Medical Advice [facility] Neurology [address] [place] [address] [address] [place] [address] Devika Fleming MD [address] [place] [address] Social History Tobacco Use Types Packs/Day Years Used Date Smoking Tobacco: Never Smokeless Tobacco: Never Alcohol Use Standard Drinks/Week Comments Not Currently 0 (1 standard drink = 0.6 oz pur e alcohol) PHQ-2 Answer Date Recorded PHQ-2 Score 2 02/22/2019 Sex and Gender Information Value Date Recorded Sex Assigned at Female 02/16/2019 10:59 AM STORE STOCK HELP Gender Identity Female 02/16/2019 10:59 AM STORE STOCK HELP Sexual Orientation Bisexual 08/08/2023 1: 47 PM CDT documented as of this encounter Plan of Treatment Upcoming Encounters Date Type Department Care Team (Late st Contact Info) Description 08/21/2023 8:45 AM CDT Therapy Visit [facility] [address] [place] [address] 140 [place] [address] Alysa Chinchilla MD [employer] [employer] [address] [place] [address] Kimberly Suh, PT [address] [place] [address] 08/29/2023 10:15 AM CDT Therapy Visit [address] [place] [address] Alysa Chinchilla MD [employer] [address] [place] [address] Brandy Weber, PT [address] [place] [address] 09/22/2023 8:45 AM CDT Therapy Visit [address] [place] [address] Alysa Chinchilla MD [employer] [address] [place] [address] Kimberly Suh, PT [address] [place] [address] 09/29/2023 10:15 AM CDT Therapy Visit [address] [place] [address] Alysa hCinchilla MD [employer] [address] [place] [address] Kimberly Suh, PT [address] [place] [address] 10/06/2023 9:30 AM CDT Therapy Visit [address] [address] Alysa Chinchilla MD [employer] [address] [place] [address] Kimberly Suh, PT [address] [place] [address] 10/13/2023 9:30 AM CDT Therapy Visit [address] [address] Alysa Chinchilla MD [employer] [address] [place] [address] Kimberly Suh, PT [address] [place] [address] 10/20/2023 10:15 AM CDT Therapy Visit [address] [address] Alysa Chinchilla MD [employer] [address] [place] [address] Kimberly Suh, PT [address] [place] [address] 11/03/2023 11:00 AM CDT Therapy Visit [address] [address] Alysa Chinchilla MD [employer] [address] [place] [address] Kimberly Suh, PT [address] [place] [address] documented as of this encounter Visit Diagnoses Not on filedocumented in this encounter Care Teams J2Ee Android Developer Relationship Specialty Start Date End Date Susie Vogt MD [facility] [address] [place] [address] PCP - General food production associate 12/29/18 08/07/23 Alysa Chinchilla MD [employer] [address] [place] [address] PCP - General 08/08/23 Devika Fleming MD [address] [place] [address] Assigned Neuroscience Provider 01/28/20 08/26/20 Devika Fleming MD [address] [place] [address] Neurology 10/30/21 Devika Fleming MD [address] [place] [address] Assigned Neuroscience Provider 02/23/22 documented as of this encounter
--- OUTSIDE RECORDS SUMMARY | 2023-08-17 12:08 | XMS_ITS | Clinical Summary ---
Author Name Unknown Organization [facility] Address [address] [place] [address] Care Team Providers Care Compactor Driver Name Role Phone No Primary/Referring, Phy Primary Care Provider Unavailable Source Comments You are receiving this document as you are listed as the primary care provider,follow-up provider, or the patient has been referred to you for consultation.This is in compliance with the Medicare and[facility] EHR Incentive Program,which states Providers who transition their patient to another setting of careor provider of care or refers their patient to another provider of care shouldprovide summary care record for each transition of care or referral. [facility] Allergies Active Allergy Reactions Criticality Noted Date [...] Comments Blood Pressure 115/90 03/11/2016 8:45 PM TRIMMER MACHINE Pulse 87 03/11/2016 8:45 PM TRIMMER MACHINE Temperature 36.4 ??C (97.5 ??F) 03/11/2016 8:44 PM CS T Respiratory Rate 22 03/11/2016 8:44 PM TRIMMER MACHINE Oxygen Saturation 96% 03/11/2016 8:44 PM TRIMMER MACHINE Inhaled Oxygen Concentration - - Weight 107 kg (236 lb) 03/11/2016 8:44 PM TRIMMER MACHINE Height 168.9 cm (5' 6.5) 03/11/2016 8:44 PM TRIMMER MACHINE Body Mass Index 37.52 03/11/2016 8:44 PM TRIMMER MACHINE Plan of Treatment Health Maintenance Due Date Last Done Comments Cervical Cancer Screening Due 1984 Hep C Screening (Preventive Services) 1984 HIV Screening (Preventive Services) 2000 Adult Preventive Visit 2002 DTaP/Tdap/Td (1 - Tdap) 2003 HepB (1) 2003 COVID-19 Vaccine ( - 2022-2 4 season) 2022 Influenza (Season Ended) 2023 04/07/2018 Zoster/Shingles (1 of 2) 2034 HPV [...] age to complete this topic Care Teams Compactor Driver Relationship Specialty Start Date End Date No Primary/Referring, Phy PCP - General 03/11/16
--- OUTSIDE RECORDS SUMMARY | 2023-08-17 12:08 | XMS_ITS | Encounter Summary ---
Author Name Unknown Organization [facility] Address [address] [place] [address] Care Team Providers Care Senior Project Coordinator Name Role Phone Susie Vogt MD Primary Care Provider [phone] Devika Fleming MD Unavailable [phone] Devika Fleming MD Unavailable [phone] Devika Fleming MD Unavailable [phone] Alysa Chinchilla MD Primary Care Provider [phone] Reason for Visit * Reason Onset Date Comments Clinic Care Coordination - Initial 01/07/[address] Fleming 02/22/2019 Encounter Details Date Type Department Care Team (Late st Contact Info) Description 01/07/2019 Telephone [facility] Neurology [address] [facility] [address] [place] [address] Devika Fleming MD [address] [place] [address] Clinic Care Coordination - Initial (Records for appointment with Dr. Fleming 02/22/2019) Social History Tobacco Use Types Packs/Day Years Used Date Smoking Tobacco: Never Assessed Sex and Gender Information Value Date Recorded Sex Assigned at Female 02/16/2019 10:59 AM SECURITY AUDITOR Gender Identity Female 02/16/2019 10:59 AM SECURITY AUDITOR Sexual Orientation Bisexual 08/08/2023 1: 47 PM CDT documented as of this encounter Miscellaneous Notes * Telephone Encounter - Kevin Lancaster MA - 01/07/2019 7:57 AM CDT LVM for patient asking her to get records faxed to us ALIE for anywhere she has been treated for her Headaches in the past for her appointment with Dr. Fleming on 02/22/2019. Shabbir Tonny RMA/CSS documented in this encounter Plan of Treatment Upcoming Encounters Date Type Department Care Team (Late st Contact Info) Description 08/21/2023 8:45 AM CDT Therapy Visit [address] [place] [address] Alysa Chinchilla MD [employer] [address] [place] [address] Kimberly Suh, PT [address] [place] [address] 08/29/2023 10:15 AM CDT Therapy Visit [address] [address] Alysa Chinchilla MD [employer] [address] [place] [address] Brandy Weber, PT [address] [place] [address] 09/22/2023 8:45 AM CDT Therapy Visit [address] [place] [address] Alysa Chinchilla MD [employer] [id number] [place] [address] Kimberly Suh, PT [address] [place] [address] 09/29/2023 10:15 AM CDT Therapy Visit [address] [place] [address] Alysa Chinchilla MD [employer] [address] [place] [address] Kimberly Suh, PT [address] [place] [address] 10/06/2023 9:30 AM CDT Therapy Visit [address] [place] [address] Alysa Chinchilla MD [employer] [address] [place] [address] Kimberly Suh, PT [address] [place] [address] 10/13/2023 9:30 AM CDT Therapy Visit [address] [address] Alysa Chinchilla MD [employer] [address] [place] [address] Kimberly Suh, PT [address] [place] [address] 10/20/2023 10:15 AM CDT Therapy Visit [address] [address] Alysa Chinchilla MD [employer] [address] [place] [address] Kimberly Suh, PT [address] [place] [address] 11/03/2023 11:00 AM CDT Therapy Visit [facility] [address] [place] [address] Alysa Chinchilla MD [employer] [address] [place] [address] Kimberly Suh, PT [address] [facility] [place] [address] documented as of this encounter Visit Diagnoses Not on filedocumented in this encounter Care Teams Senior Project Coordinator Relationship Specialty Start Date End Date Susie Vogt MD [facility] [address] [place] [address] PCP - General high school band teacher 12/29/18 08/07/23 Alysa Chinchilla MD [employer] [address] [place] [address] PCP - General 08/08/23 Devika Fleming MD [address] [place] [address] Assigned Neuroscience Provider 01/28/20 08/26/20 Devika Fleming MD [address] [place] [address] Neurology 10/30/21 Devika Fleming MD [address] [place] [address] Assigned Neuroscience Provider 02/23/22 documented as of this encounter
--- OUTSIDE RECORDS SUMMARY | 2023-08-17 12:08 | XMS_ITS | Clinical Summary ---
Author Name Unknown Organization [email or web address] Address [place], [place] [address] Care Team Providers Care Demographic Analyst Name Role Phone Janet Jones MD Primary [...] Take 3 mg by mouth once daily. 12/30/2022 Active aspirin chewable 81 mg chewable tablet Chew 81 mg by mouth once daily. Active levonorgestrel (Kyleena) 17.5 mcg/24 hrs (5 yrs) 19.5 mg intrauterine device (IUD) 10/28/2022 Active cimetidine (TAGAMET ORAL) Take 200 mg by mouth two times daily. Active riboflavin, vitamin B2, (VITAMIN B2) 100 mg tablet Take 100 mg by mouth once daily. Active magnesium oxide 400 mg magnesium tab Take by mouth. Active quercetin 500 mg cap Take 500 mg by mouth once daily. Active cholecalciferol, Vitamin D3, (Vitamin D-3) 5,000 unit tab tablet Take 5,000 units by mouth once daily. Active Active Problems Problem Noted Date Diagnosed [...] MAJOR DEPR, RECURR, PARTIAL REMISSION 10/08/2007 11/09/2014 Immunizations Name Administration Dates Next Due COVID-19 vaccine (Moderna 100mcg/0.5mL) PF, MDV 06/29/2020,05/31/2020 Hepatitis B (Peds) 02/13/1999,08/08/1998, 999 Influenza, IIV4 01/27/2023,,02/14/2021,02/20,02/24/2019,02/23/2018 MMR 07/27/1996 Meningococcal Vaccine (Menactra) 02/10/2003 Td [...] Comments Blood Pressure 102/64 04/21/2023 2:08 PM COSTUME TECHNICIAN Pulse 96 04/21/2023 2:08 PM COSTUME TECHNICIAN Temperature 36.4 ??C (97.6 ??F) 05/12/2017 3:29 PM CS T Respiratory Rate 16 07/17/2018 12:1 2 PM CDT Oxygen Saturation 100% 04/21/2023 2:08 PM COSTUME TECHNICIAN Inhaled Oxygen Concentration - - Weight 108.1 kg (238 lb 6.4 oz) 04/21/2023 2:08 PM COSTUME TECHNICIAN Height 170 cm (5' 6.93) 04/21/2023 2:08 PM COSTUME TECHNICIAN Body Mass Index 37.42 04/21/2023 2:08 PM COSTUME TECHNICIAN Plan of Treatment Health Maintenance Due Date Last Done Comments HIV for age 15-65 1999 Hepatitis C screening for age 18-79 2002 Pap test for age 21-65 10/14/2022 0, 10/15/2019, 06/07/2016, Additional history exists COVID-19 vaccine series (2022- season) 2022 02/22/2021, 02/22/2021, 06/29/2020, Additional history exists Influenza for age 9-49 12/07/2023 3, 02/05/2022, 02/14/2021, Additional history exists Depression screening for age 12+ 01/28/2024 01/27/2023, 06/07/2016, 09/27/2015, Additional history exists BMI (ht and wt on same day) for age 18+ 04/21/2024 04/21/2023, 01/27/2023, 05/12/2017, Additional history exists Tetanus booster 07/15/2028 07/15/2018, 05/2010, 07/27/1996 Tdap Completed 07/15/2018, 03/08/2011 Pneumococcal series for age 6-64 Aged Out No longer eligible based on patient's age to complete this topic Procedures Procedure Name Priority Date/Time Associated Diagnosis Comments CAMPGROUND ATTENDANT THIN PREP PAP SCREEN IMAGED Routine 10/15/2019 2:00 PM CDT from Last 3 Months or Most Recently Relevant to Health Maintenance Results * CAMPGROUND ATTENDANT THIN PREP PAP SCREEN IMAGED (10/15/2019 2:00 PM CDT) Case Report Gynecologic Cytology Report ? Case: [id number] ? Authorizing Provider: ??Susie Vogt MD ?Collected: ? 10/15/2019 1400 ? Ordering Location: ? [facility] ?Received: ?10/19/2019 0948 ? First Screen: ?Giovanny Perea ? Specimen: ?CAMPGROUND ATTENDANT ThinPrep Vial Screening, Cervical/Vaginal ? 10/20/2019 12:34 PM CDT [facility] INTERPRETATION/ RESULT NEGATIVE FOR INTRAEPITHELIAL LESION OR MALIGNANCY (NIL) (none) 10/20/2019 12:34 PM CDT [facility] IMEN ADEQUACY Satisfactory for evaluation Endocervical component present 10/20/2019 12:34 PM CDT [facility] HPV REQUEST HPV and PAP 10/20/2019 12:34 PM CDT [facility] Last Pap Date 07/24/2010 10/20/2019 12:34 PM CDT [facility] Last Pap Result NIL 0 12:34 PM CDT [facility] Menstrual Status 10/20/2019 12:34 PM CDT [facility] Comment:IUD Additional Information 10/20/2019 12:34 PM CDT [facility] Comment: Interpreted at [facility] - [address], [place] [address] Automated Review Successful 10/20/2019 12:34 PM CDT [facility] Comment:Specimen processed s uccessfully by automated shelter supervisor device, ThinPrep Imaging System, [employer] ANCILLARY TESTING CAMPGROUND ATTENDANT HPV Ordered, Please see separate report 10/20/2019 12:34 PM CDT [facility] Note The pap test is a screening technique, not a diagnostic procedure. It is used primarily to screen for squamous cancers and precursor lesions. Published studies have shown that it is subject to both false negative and false positive results. The pap test should not be used as the sole means to diagnose or exclude pre-malignant and malignant lesions. 10/20/2019 12:34 PM CDT [facility] Other (Cervical/Vagina l) 10/15/2019 2:00 PM CDT 10/19/2019 9:48 AM CDT Susie Vogt MD PATHOLOGY/CYTOLOGY [facility] [address] [place] [address], [place] from Last 3 Months or Most Recently Relevant to Health Maintenance Care Teams Demographic Analyst Relationship Specialty Start Date End [place] [address] PCP - General Family Practice 04/21/23
--- NOTE | 2023-08-17 12:09 | ED_ITS ---
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 Patient had just gotten out of the shower this morning when she reached down to clean dust off of the toilet. When she reached down she felt a pop in her lower back, felt immediate pain. She could remove for few minutes and then she was able to finally turned around sit down on the toilet and call for for her partner to help. She felt that the pain was too much and so ambulance was called. The pain is much better now however is still quite intense. It is located across the lower back. Does not radiate down into the legs. She denies any saddle anesthesia. No loss of bowel or bladder function. Related Data Home Medications Medication Instructions Recorded Confirmed aspirin 81 mg capsule 81 mg PO QDAY 12/13/21 05/05/23 levonorgestrel 17.5 mcg/24 hr (up 1 intrauterine ONCE 12/13/21 05/05/23 to 5 yrs) 19.5mg intrauterine device B.coagulans 2 billion cap PO 05/05/23 05/05/23 cell-digestive enzymes combo no.10 capsule (Digestive Advantage Probiotics Plus Gas) cetirizine 10 mg capsule (Zyrtec) 10 mg PO TID PRN 05/05/23 05/05/23 cholecalciferol (vitamin D3) 125 125 mcg PO QDAY 05/05/23 05/05/23 mcg (5,000 unit) capsule cimetidine 200 mg tablet 200 mg PO BID 05/05/23 05/05/23 magnesium citrate 100 mg capsule 400 mg PO QDAY 05/05/23 05/05/23 naltrexone 4.5 mg capsule mg PO QDAY 05/05/23 05/05/23 quercetin 500 mg capsule mg PO QDAY 05/05/23 05/05/23 riboflavin (vitamin B2) 100 mg 100 mg PO QDAY 05/05/23 05/05/23 tablet Previous Rx's Medication Instructions Recorded ondansetron HCl 4 mg tablet 4 mg PO Q8H #30 tabs 12/18/21 norethindrone (contraceptive) 0.35 0.35 mg PO QDAY #84 tabs 08/12/23 mg tablet methylprednisolone 4 mg tablets in See Rx Instructions PO .COMPLEX 08/17/23 a dose pack (Medrol (Dick)) #21 ea Allergies Allergy/AdvReac Type Severity Reaction Status Date / Time adhesive Allergy Intermediate blister, Verified 08/17/23 11:28 itching loratadine [From Claritin] AdvReac stomachache Verified 08/17/23 11:28 Clavulanate Allergy Mild stomach Uncoded 05/05/23 09:24 problems augmentin AdvReac Uncoded 05/05/23 09:24 Review of Systems Status of ROS: Reports: 6 or more systems reviewed and unremarkable except as noted in History and below PFSH [facility] Medical History Migraine with aura ?G43.109 - Migraine with aura, not intractable, without status migrainosus (ICD-10) History of spontaneous (2016) ?Z87.59 - Personal history of other complications of , childbirth and the puerperium (ICD-10) History of pre-eclampsia ?Z87.59 - Personal history of other complications of , childbirth and the puerperium (ICD-10) History of gestational hypertension ?Z87.59 - Personal history of other complications of , childbirth and the puerperium (ICD-10) Surgical History History of laparoscopic cholecystectomy (01/2013) ?Z90.49 - Acquired absence of other specified parts of digestive tract (ICD- 10) History of ?Z98.891 - History of uterine scar from previous surgery (ICD-10) Family History Mother Heart disease High blood pressure Depression Maternal Grandmother Breast cancer Ovarian cancer Maternal Grandfather Stroke Social History Narrative: . Master's degree education. Non smoker. Denies alcohol use or recreational drug use. No concerns with safety or abuse. What is your current living situation?: I presently have a place to live Problems where you live: no known problems In the past 12 months, utilities in danger of being shut off: no In past 12 months, lack of transportation kept you from medical appts, meetings, work, or getting things needed for daily living: no In the past 12 mos, have been you worried that your food would run out before you had money to buy more?: never true In the past 12 mos, the food you bought just didn't last and you didn't have money to buy more?: often true Smoking Status: Never smoker How often do you have a drink containing alcohol: monthly or less AUDIT-C Alcohol total score: 1 Non-prescribed substance use: denies use How often does anyone, including family, friends and others, physically hurt you : never How often does anyone, including family, friends and others, insult or talk down to you: never How often does anyone, including family, friends and others, threaten you with harm: never How often does anyone, including family, friends and others, scream or curse at you: never Little interest or pleasure in doing things: not at all Feeling down, depressed, or hopeless: more than half the days Do you think of yourself as: straight/heterosexual Gender Identity: female Are you currently sexually active: Yes Exam Narrative: Exam Narrative: Obese, well-developed patient in mild distress. Alert and oriented. Answers questions appropriately. Mood and affect are appropriate. Thoughts are goal oriented and rational. No tangential or magical thinking noted. Patient speaks in full sentences without needing to catch her breath. HEENT: Normocephalic atraumatic. Pupils are equally round reactive to light. Extraocular muscles are intact. Conjunctivae are moist without any icterus noted. Moist mucous membranes. Back: Normal appearance. No skin changes. She has no acute tenderness over the cervical, thoracic or lumbar spine. She does have discomfort with palpation of the paraspinal musculature of the lumbar spine bilaterally. Strength is 5/5 of the lower extremities. Normal movement at the hips, knees and ankles. Patient has pain with any movement. Const: Vital Signs, click to edit/add: Vital Signs - 24 hr 08/17/23 11:29 Temperature 98.6 F Pulse Rate [Pulse Oximeter] 91 Respiratory Rate 16 Blood Pressure [Ri ght Upper Arm] 144/93 H Pulse Oximetry 100 Oxygen Delivery Me thod Room Air Course Course ED Course: IM Toradol given in the ED today. Vital Signs Vital signs: Initial Vital Signs Temperature 98.6 F 08/17/23 11:29 Temperature Source Temporal Artery Scan 08/17/23 11:29 Pulse Rate 91 08/17/23 11:29 Respiratory Rate 16 08/17/23 11:29 Blood Pressure 144/93 H 08/17/23 11:29 Blood Pressure Mean 110 H 08/17/23 11:29 Blood Pressure Position Supine 08/17/23 11:29 Pulse Oximetry 100 08/17/23 11:29 Oxygen Delivery Method Room Air 08/17/23 11:29 Vital Signs Temperature 98.6 F 08/17/23 11:29 Pulse Rate 91 08/17/23 11:29 Respiratory Rate 16 08/17/23 11:29 Blood Pressure 144/93 H 08/17/23 11:29 Pulse Oximetry 100 08/17/23 11:29 Oxygen Delivery Method Room Air 08/17/23 11:29 Temperature 98.6 F 08/17/23 11:29 Pulse Rate 91 08/17/23 11:29 Respiratory Rate 16 08/17/23 11:29 Blood Pressure 144/93 H 08/17/23 11:29 Pulse Oximetry 100 08/17/23 11:29 Oxygen Delivery Method Room Air 08/17/23 11:29 Medical Decision Making MDM Narrative Medical decision making narrative: 38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 I do not think that x-ray imaging would give us any useful information at this time. Patient will be sent home with Medrol Dosepak and [place] to take as needed. We discussed heat, gentle movement. Patient does have physical therapy already scheduled for . Follow-up with primary care team as needed. Return to the ER if she feels that things are getting worse. Discharge Plan Discharge Clinical Impression: Acute low back pain Patient Disposition: Home, Self-Care Condition: Stable Additional Instructions: Take all steroid as prescribed. Take pain medication as needed. Follow-up with primary care mid to end of this coming week. [place], 8 tablets sent to [facility]. Prescriptions: New methylprednisolone [Medrol (Dick)] 4 mg tablets,dose pack See Rx Instructions .ROUTE .COMPLEX Qty: 21 0RF Rx Instructions: orally per package directions No Action ondansetron HCl 4 mg tablet 4 mg PO Q8H Qty: 30 5RF Rx Instructions: use for nausea related to migraine levonorgestrel 17.5 mcg/24 hrs (5 yrs) 19.5 mg intrauterine device 1 intrauterine ONCE aspirin 81 mg capsule 81 mg PO QDAY Zyrtec 10 mg capsule 10 mg PO TID PRN naltrexone 4.5 mg capsule PO QDAY cimetidine 200 mg tablet 200 mg PO BID Digest Adv Probio Plus Gas 2 billion cell capsule PO riboflavin (vitamin B2) 100 mg tablet 100 mg PO QDAY magnesium citrate 100 mg capsule 400 mg PO QDAY quercetin 500 mg capsule PO QDAY cholecalciferol (vitamin D3) 125 mcg (5,000 unit) capsule 125 mcg PO QDAY norethindrone (contraceptive) 0.35 mg tablet 0.35 mg PO QDAY Qty: 84 2RF Follow Up/Referrals: Janay Qureshi MD [Primary Care Provider] - Stand Alone Forms: [facility] Info Instructions
[2023-08-17 12:15] VITALS: PULSE 80; O2SAT 99
[2023-08-17] MEDS: KETOROLAC 60 MG/2 ML inj IM (12:18)
== END 2023-08-17 12:40 | disposition home or self-care (01) ==
LOC: ED 12:05
PROVIDERS: Emergency Provider Family Medicine; PCP Family Medicine
DX: M54.50 Low back pain, unspecified (principal)
CPT/HCPCS: 96372; 99284; J1885

== ENCOUNTER 2024-01-23 08:00 | Outpatient (RCR) | payer BC, SELFPAY ==
[2023-07-28 12:42] VITALS: BP 128/84; PULSE 112; RESP 16; TEMP 36.8; O2SAT 97
[2023-08-11] MEDS: SODIUM CHLORIDE 0.9 % (FLUSH) 10 ML SYRINGE IVF (12:57)
[2023-08-11] MEDS: 0.9 % SODIUM CHLORIDE 1000 ml 1,000 ML IV (12:57)
[2023-08-11 13:00] VITALS: BP 138/92; PULSE 112; RESP 16; TEMP 36.6; O2SAT 98
[2023-08-25 13:14] VITALS: BP 143/81; PULSE 107; RESP 16; TEMP 36.9; O2SAT 97
[2023-08-25] MEDS: 0.9 % SODIUM CHLORIDE 1000 ml 1,000 ML IV (13:36)
[2023-09-08 13:20] VITALS: BP 116/87; PULSE 110; RESP 16; TEMP 36.8; O2SAT 98
[2023-09-08] MEDS: 0.9 % SODIUM CHLORIDE 1000 ml 1,000 ML IV (13:42)
[2023-09-08] MEDS: SODIUM CHLORIDE 0.9 % (FLUSH) 10 ML SYRINGE IVF (13:42)
[2023-09-22 12:55] VITALS: BP 120/77; PULSE 112; RESP 16; TEMP 36.2; O2SAT 99
[2023-09-22] MEDS: SODIUM CHLORIDE 0.9 % (FLUSH) 10 ML SYRINGE IVF (13:25)
[2023-09-22] MEDS: 0.9 % SODIUM CHLORIDE 1000 ml 1,000 ML IV (13:25)
[2023-10-06 13:12] VITALS: BP 124/88; PULSE 110; RESP 18; TEMP 36.6; O2SAT 99
[2023-10-06] MEDS: 0.9 % SODIUM CHLORIDE 1000 ml 1,000 ML IV (13:20)
[2023-10-06] MEDS: SODIUM CHLORIDE 0.9 % (FLUSH) 10 ML SYRINGE IVF (13:38)
--- NOTE | 2023-10-15 08:55 | ONC.NURNOTE ---
Dx: POTS, and MCAS
--- NOTE | 2023-10-15 08:57 | ONC.NURNOTE ---
Received orders for more frequent IVF. Called patient to let her know that she can move her appointment on Friday up to Friday if she prefers.
[2023-10-17 10:46] VITALS: BP 102/62; PULSE 96; RESP 16; TEMP 36.5; O2SAT 97
[2023-10-17] MEDS: SODIUM CHLORIDE 0.9 % (FLUSH) 10 ML SYRINGE IVF (10:52)
[2023-10-17] MEDS: 0.9 % SODIUM CHLORIDE 1000 ml 1,000 ML IV (10:52)
[2023-10-21 13:29] VITALS: BP 120/88; PULSE 102; RESP 16; TEMP 36.5; O2SAT 96
[2023-10-21] MEDS: 0.9 % SODIUM CHLORIDE 1000 ml 1,000 ML IV (13:56)
[2023-10-21] MEDS: SODIUM CHLORIDE 0.9 % (FLUSH) 10 ML SYRINGE IVF (13:56)
[2023-10-24 13:08] VITALS: BP 126/80; PULSE 81; RESP 16; TEMP 36.6; O2SAT 98
[2023-10-24] MEDS: 0.9 % SODIUM CHLORIDE 1000 ml 1,000 ML IV (13:27)
[2023-10-24] MEDS: SODIUM CHLORIDE 0.9 % (FLUSH) 10 ML SYRINGE IVF (13:27)
[2023-10-27 10:40] VITALS: BP 121/85; PULSE 104; RESP 16; TEMP 36.8; O2SAT 98
[2023-10-27] MEDS: SODIUM CHLORIDE 0.9 % (FLUSH) 10 ML SYRINGE IVF (10:52)
[2023-10-27] MEDS: 0.9 % SODIUM CHLORIDE 1000 ml 1,000 ML IV (10:52)
[2023-10-31 09:13] VITALS: BP 117/78; PULSE 90; RESP 16; TEMP 36.8; O2SAT 98
[2023-10-31] MEDS: SODIUM CHLORIDE 0.9 % (FLUSH) 10 ML SYRINGE IVF (09:27)
[2023-10-31] MEDS: 0.9 % SODIUM CHLORIDE 1000 ml 1,000 ML IV (09:27)
[2023-11-03 14:12] VITALS: BP 138/87; PULSE 86; RESP 16; TEMP 36.8; O2SAT 97
[2023-11-03] MEDS: 0.9 % SODIUM CHLORIDE 1000 ml 1,000 ML IV (14:31)
[2023-11-03] MEDS: SODIUM CHLORIDE 0.9 % (FLUSH) 10 ML SYRINGE IVF (14:32)
[2023-11-07 13:07] VITALS: BP 126/69; PULSE 116; RESP 16; TEMP 37.1; O2SAT 97
[2023-11-07] MEDS: 0.9 % SODIUM CHLORIDE 1000 ml 1,000 ML IV (13:35)
[2023-11-07] MEDS: SODIUM CHLORIDE 0.9 % (FLUSH) 10 ML SYRINGE IVF (13:35)
[2023-11-10 13:09] VITALS: BP 130/85; PULSE 95; RESP 18; TEMP 36.7; O2SAT 98
[2023-11-10] MEDS: SODIUM CHLORIDE 0.9 % (FLUSH) 10 ML SYRINGE IVF (13:40)
[2023-11-10] MEDS: 0.9 % SODIUM CHLORIDE 1000 ml 1,000 ML IV (13:41)
[2023-11-14 08:40] VITALS: BP 124/80; PULSE 90; RESP 16; TEMP 36.3; O2SAT 97
[2023-11-14] MEDS: 0.9 % SODIUM CHLORIDE 1000 ml 1,000 ML IV (08:59)
[2023-11-14] MEDS: SODIUM CHLORIDE 0.9 % (FLUSH) 10 ML SYRINGE IVF (08:59)
[2023-11-17 13:16] VITALS: BP 119/84; PULSE 95; RESP 18; TEMP 36.8; O2SAT 98
[2023-11-17] MEDS: SODIUM CHLORIDE 0.9 % (FLUSH) 10 ML SYRINGE IVF (13:33)
[2023-11-17] MEDS: 0.9 % SODIUM CHLORIDE 1000 ml 1,000 ML IV (13:33)
[2023-11-21 08:42] VITALS: BP 134/83; PULSE 90; RESP 16; TEMP 36.6; O2SAT 98
[2023-11-21] MEDS: 0.9 % SODIUM CHLORIDE 1000 ml 1,000 ML IV (09:08)
[2023-11-21] MEDS: SODIUM CHLORIDE 0.9 % (FLUSH) 10 ML SYRINGE IVF (09:08)
[2023-11-28 08:39] VITALS: BP 129/88; PULSE 100; RESP 16; TEMP 36.7; O2SAT 98
[2023-11-28] MEDS: 0.9 % SODIUM CHLORIDE 1000 ml 1,000 ML IV (08:57)
[2023-11-28] MEDS: SODIUM CHLORIDE 0.9 % (FLUSH) 10 ML SYRINGE IVF (08:57)
[2023-12-01 14:25] VITALS: BP 126/86; PULSE 106; RESP 16; TEMP 36.9; O2SAT 98
[2023-12-01] MEDS: SODIUM CHLORIDE 0.9 % (FLUSH) 10 ML SYRINGE IVF (14:44)
[2023-12-01] MEDS: 0.9 % SODIUM CHLORIDE 1000 ml 1,000 ML IV (14:44)
[2023-12-05 13:16] VITALS: BP 142/84; PULSE 100; RESP 16; TEMP 36.6; O2SAT 99
[2023-12-05] MEDS: 0.9 % SODIUM CHLORIDE 1000 ml 1,000 ML IV (13:28)
[2023-12-09] MEDS: SODIUM CHLORIDE 0.9 % (FLUSH) 10 ML SYRINGE IVF (09:31)
[2023-12-09] MEDS: 0.9 % SODIUM CHLORIDE 1000 ml 1,000 ML IV (09:31)
[2023-12-09 09:39] VITALS: BP 122/85; PULSE 100; RESP 16; TEMP 36.7; O2SAT 98
[2023-12-12 12:10] VITALS: BP 124/90; PULSE 86; RESP 16; TEMP 36.7; O2SAT 99
[2023-12-12] MEDS: 0.9 % SODIUM CHLORIDE 1000 ml 1,000 ML IV (12:30)
[2023-12-12] MEDS: SODIUM CHLORIDE 0.9 % (FLUSH) 10 ML SYRINGE IVF (14:40)
[2023-12-15 13:57] VITALS: BP 129/85; PULSE 93; RESP 16; TEMP 37.1; O2SAT 97
[2023-12-15] MEDS: SODIUM CHLORIDE 0.9 % (FLUSH) 10 ML SYRINGE IVF (14:19)
[2023-12-15] MEDS: 0.9 % SODIUM CHLORIDE 1000 ml 1,000 ML IV (14:20)
[2023-12-19 08:00] VITALS: BP 131/84; PULSE 93; RESP 16; TEMP 36.7; O2SAT 97
[2023-12-19] MEDS: 0.9 % SODIUM CHLORIDE 1000 ml 1,000 ML IV (08:28)
[2023-12-22 13:38] VITALS: BP 140/86; PULSE 95; RESP 16; TEMP 36.8; O2SAT 97
[2023-12-22] MEDS: SODIUM CHLORIDE 0.9 % (FLUSH) 10 ML SYRINGE IVF (13:40)
[2023-12-22] MEDS: 0.9 % SODIUM CHLORIDE 1000 ml 1,000 ML IV (13:41)
[2023-12-26 08:29] VITALS: BP 124/86; PULSE 93; RESP 16; TEMP 36.5; O2SAT 97
[2023-12-26] MEDS: SODIUM CHLORIDE 0.9 % (FLUSH) 10 ML SYRINGE IVF ×2 (08:39→09:45)
[2023-12-26] MEDS: 0.9 % SODIUM CHLORIDE 1000 ml 1,000 ML IV (08:39)
[2023-12-26] MEDS: HEPARIN 500 UNIT/5 ML SYRINGE 250 UNIT IVF (09:45)
[2023-12-29 14:01] VITALS: BP 142/84; PULSE 90; RESP 16; TEMP 36.4; O2SAT 99
[2023-12-29] MEDS: 0.9 % SODIUM CHLORIDE 1000 ml 1,000 ML IV (14:05)
[2023-12-29] MEDS: HEPARIN 500 UNIT/5 ML SYRINGE 250 UNIT IVF (14:25)
[2023-12-29] MEDS: SODIUM CHLORIDE 0.9 % (FLUSH) 10 ML SYRINGE IVF (14:25)
[2024-01-02 08:12] VITALS: BP 138/79; PULSE 100; RESP 16; TEMP 36.6; O2SAT 99
[2024-01-02] MEDS: HEPARIN 500 UNIT/5 ML SYRINGE 250 UNIT IVF (08:26)
[2024-01-02] MEDS: 0.9 % SODIUM CHLORIDE 1000 ml 1,000 ML IV (08:26)
[2024-01-02] MEDS: SODIUM CHLORIDE 0.9 % (FLUSH) 10 ML SYRINGE IVF (08:26)
[2024-01-05 14:42] VITALS: BP 145/93; PULSE 109; RESP 16; TEMP 36.6; O2SAT 97
[2024-01-05] MEDS: 0.9 % SODIUM CHLORIDE 1000 ml 1,000 ML IV (14:44)
[2024-01-05] MEDS: SODIUM CHLORIDE 0.9 % (FLUSH) 10 ML SYRINGE IVF (14:44)
[2024-01-09] MEDS: SODIUM CHLORIDE 0.9 % (FLUSH) 10 ML SYRINGE IVF ×2 (08:21→09:32)
[2024-01-09] MEDS: 0.9 % SODIUM CHLORIDE 1000 ml 1,000 ML IV (08:22)
[2024-01-09 08:24] VITALS: BP 126/86; PULSE 85; RESP 16; TEMP 36.4; O2SAT 96
[2024-01-09] MEDS: HEPARIN 500 UNIT/5 ML SYRINGE 250 UNIT IVF (09:32)
[2024-01-12 09:45] VITALS: BP 116/87; PULSE 90; RESP 16; TEMP 36.6; O2SAT 96
[2024-01-12] MEDS: SODIUM CHLORIDE 0.9 % (FLUSH) 10 ML SYRINGE IVF ×2 (09:48→10:50)
[2024-01-12] MEDS: 0.9 % SODIUM CHLORIDE 1000 ml 1,000 ML IV (09:48)
[2024-01-12] MEDS: HEPARIN 500 UNIT/5 ML SYRINGE 250 UNIT IVF (10:50)
[2024-01-16 09:37] VITALS: BP 126/87; PULSE 98; RESP 16; TEMP 36.5; O2SAT 98
[2024-01-16] MEDS: SODIUM CHLORIDE 0.9 % (FLUSH) 10 ML SYRINGE IVF ×2 (09:52→11:47)
[2024-01-16] MEDS: 0.9 % SODIUM CHLORIDE 1000 ml 1,000 ML IV (09:52)
[2024-01-16] MEDS: HEPARIN 500 UNIT/5 ML SYRINGE 250 UNIT IVF (11:47)
[2024-01-20 14:57] VITALS: BP 128/84; PULSE 96; RESP 16; TEMP 36.6; O2SAT 97
[2024-01-20] MEDS: 0.9 % SODIUM CHLORIDE 500 ML 500 ML 1000 ML IVPB ×2 (15:00→15:30)
[2024-01-20] MEDS: HEPARIN 500 UNIT/5 ML SYRINGE 250 UNIT IVF (16:06)
[2024-01-20] MEDS: SODIUM CHLORIDE 0.9 % (FLUSH) 10 ML SYRINGE IVF (16:06)
[2024-01-23 08:06] VITALS: BP 113/79; PULSE 82; RESP 16; TEMP 36.7; O2SAT 96
[2024-01-23] MEDS: 0.9 % SODIUM CHLORIDE 500 ML 500 ML 1000 ML IVPB (08:21)
[2024-01-23] MEDS: SODIUM CHLORIDE 0.9 % (FLUSH) 10 ML SYRINGE IVF ×2 (08:21→09:26)
[2024-01-23] MEDS: HEPARIN 500 UNIT/5 ML SYRINGE 250 UNIT IVF (09:27)
== END 2024-01-24 23:59 | disposition home or self-care (01) ==
LOC: CCIC 08:00
PROVIDERS: PCP Family Medicine; Referring Provider Family Medicine; Visit Provider Family Medicine
DX: G90.1 Familial dysautonomia [Riley-Day] (principal)
CPT/HCPCS: 96360; 96365; 99211; A4221; J1642; J7030

== ENCOUNTER 2024-07-23 08:00 | Outpatient (RCR) | payer BC, SELFPAY ==
[2024-01-26 14:46] VITALS: BP 131/91; PULSE 81; RESP 16; TEMP 37.2; O2SAT 96
[2024-01-26] MEDS: SODIUM CHLORIDE 0.9 % (FLUSH) 10 ML SYRINGE IVF ×2 (15:01→16:05)
[2024-01-26] MEDS: 0.9 % SODIUM CHLORIDE 500 ML 500 ML 1000 ML IV (15:02)
[2024-01-26] MEDS: HEPARIN 500 UNIT/5 ML SYRINGE 250 UNIT IVF (16:05)
[2024-01-30 08:12] VITALS: BP 143/80; PULSE 87; RESP 16; TEMP 36.5; O2SAT 97
[2024-01-30] MEDS: 0.9 % SODIUM CHLORIDE 500 ML 500 ML 1000 ML IV (08:19)
[2024-01-30] MEDS: SODIUM CHLORIDE 0.9 % (FLUSH) 10 ML SYRINGE IVF ×2 (08:19→09:29)
[2024-01-30] MEDS: HEPARIN 500 UNIT/5 ML SYRINGE 250 UNIT IVF (09:29)
[2024-02-02 08:05] VITALS: BP 122/81; PULSE 81; RESP 18; TEMP 36.9; O2SAT 97
[2024-02-02] MEDS: 0.9 % SODIUM CHLORIDE 500 ML 500 ML 1000 ML IV (08:25)
[2024-02-02] MEDS: SODIUM CHLORIDE 0.9 % (FLUSH) 10 ML SYRINGE IVF (09:28)
[2024-02-02] MEDS: HEPARIN 500 UNIT/5 ML SYRINGE 250 UNIT IVF (09:28)
[2024-02-06] MEDS: 0.9 % SODIUM CHLORIDE 500 ML 500 ML 1000 ML IV (08:15)
[2024-02-06 08:21] VITALS: BP 128/82; PULSE 92; RESP 16; TEMP 37.1; O2SAT 97
[2024-02-06] MEDS: HEPARIN 500 UNIT/5 ML SYRINGE 250 UNIT IVF (09:25)
[2024-02-06] MEDS: SODIUM CHLORIDE 0.9 % (FLUSH) 10 ML SYRINGE IVF (09:26)
[2024-02-09 08:27] VITALS: BP 118/80; PULSE 97; RESP 16; TEMP 37.1; O2SAT 96
[2024-02-09] MEDS: SODIUM CHLORIDE 0.9 % (FLUSH) 10 ML SYRINGE IVF (08:34)
[2024-02-13] MEDS: 0.9 % SODIUM CHLORIDE 500 ML 500 ML 1000 ML IV (08:13)
[2024-02-13] MEDS: SODIUM CHLORIDE 0.9 % (FLUSH) 10 ML SYRINGE IVF ×2 (08:13→09:24)
[2024-02-13] MEDS: HEPARIN 500 UNIT/5 ML SYRINGE 250 UNIT IVF (09:24)
[2024-02-13 09:25] VITALS: BP 128/83; PULSE 90; RESP 18; TEMP 37; O2SAT 96
[2024-02-16 14:54] VITALS: BP 139/85; PULSE 96; RESP 16; TEMP 36.6; O2SAT 99
[2024-02-16] MEDS: 0.9 % SODIUM CHLORIDE 500 ML 500 ML 1000 ML IV (15:01)
[2024-02-16] MEDS: SODIUM CHLORIDE 0.9 % (FLUSH) 10 ML SYRINGE IVF (16:09)
[2024-02-16] MEDS: HEPARIN 500 UNIT/5 ML SYRINGE 250 UNIT IVF (16:09)
[2024-02-20 08:08] VITALS: BP 111/76; PULSE 100; RESP 16; TEMP 36.2; O2SAT 97
[2024-02-20] MEDS: 0.9 % SODIUM CHLORIDE 500 ML 500 ML 1000 ML IV (08:20)
[2024-02-20] MEDS: SODIUM CHLORIDE 0.9 % (FLUSH) 10 ML SYRINGE IVF (09:31)
[2024-02-20] MEDS: HEPARIN 500 UNIT/5 ML SYRINGE 250 UNIT IVF (09:31)
[2024-02-23 15:04] VITALS: BP 146/88; PULSE 94; RESP 18; TEMP 36.7; O2SAT 96
[2024-02-23] MEDS: 0.9 % SODIUM CHLORIDE 500 ML 500 ML 1000 ML IV (15:15)
[2024-02-23] MEDS: SODIUM CHLORIDE 0.9 % (FLUSH) 10 ML SYRINGE IVF ×2 (15:15→16:31)
[2024-02-23] MEDS: HEPARIN 500 UNIT/5 ML SYRINGE 250 UNIT IVF (16:32)
[2024-02-27 08:02] VITALS: BP 110/76; PULSE 85; RESP 18; TEMP 36.7; O2SAT 97
[2024-02-27] MEDS: 0.9 % SODIUM CHLORIDE 500 ML 500 ML 1000 ML IV (08:14)
[2024-02-27] MEDS: SODIUM CHLORIDE 0.9 % (FLUSH) 10 ML SYRINGE IVF ×2 (08:15→09:29)
[2024-02-27] MEDS: HEPARIN 500 UNIT/5 ML SYRINGE 250 UNIT IVF (09:29)
[2024-03-01 07:54] VITALS: BP 135/81; PULSE 97; RESP 16; TEMP 36.1; O2SAT 96
[2024-03-01] MEDS: 0.9 % SODIUM CHLORIDE 500 ML 500 ML 1000 ML IV (08:06)
[2024-03-01] MEDS: SODIUM CHLORIDE 0.9 % (FLUSH) 10 ML SYRINGE IVF ×2 (08:06→09:10)
[2024-03-01] MEDS: HEPARIN 500 UNIT/5 ML SYRINGE 250 UNIT IVF (09:10)
--- NOTE | 2024-03-03 12:56 | ONC.NURNOTE ---
Patient called to report that PICC dressing was loose and open to catheter insertion site. Instructed her to come in for PICC dressing change and to keep area sterile as best as possible Patient arrived and OPSITE intact but there was a tunnel from the bottom of the dressing up to the insertion site. Opsite removed and area where bandage was very pink/red. Area cleaned and new dressing applied
[2024-03-05] MEDS: 0.9 % SODIUM CHLORIDE 500 ML 500 ML 1000 ML IV (14:40)
[2024-03-05] MEDS: HEPARIN 500 UNIT/5 ML SYRINGE 250 UNIT IVF (15:51)
[2024-03-08 08:08] VITALS: BP 117/82; PULSE 98; RESP 16; TEMP 36.4; O2SAT 97
[2024-03-08] MEDS: 0.9 % SODIUM CHLORIDE 500 ML 500 ML 1000 ML IV (08:15)
[2024-03-08] MEDS: HEPARIN 500 UNIT/5 ML SYRINGE 250 UNIT IVF (11:06)
[2024-03-08] MEDS: SODIUM CHLORIDE 0.9 % (FLUSH) 10 ML SYRINGE IVF (11:07)
--- NOTE | 2024-03-08 11:33 | ONC.NURNOTE ---
slight rash at upper edge of port dsg. she states it itches at times. instr. on hydrocortisone. port flushed well. good blood return. no reddness or drainage at port area.
[2024-03-12 08:14] VITALS: BP 121/81; PULSE 82; RESP 16; TEMP 36.6; O2SAT 97
[2024-03-12] MEDS: SODIUM CHLORIDE 0.9 % (FLUSH) 10 ML SYRINGE IVF ×2 (08:17→09:22)
[2024-03-12] MEDS: 0.9 % SODIUM CHLORIDE 500 ML 500 ML 1000 ML IV (08:18)
[2024-03-12] MEDS: HEPARIN 500 UNIT/5 ML SYRINGE 250 UNIT IVF (09:22)
[2024-03-15 14:46] VITALS: BP 137/82; PULSE 93; RESP 16; TEMP 36.3; O2SAT 97
[2024-03-15] MEDS: SODIUM CHLORIDE 0.9 % (FLUSH) 10 ML SYRINGE IVF ×2 (15:03→16:13)
[2024-03-15] MEDS: 0.9 % SODIUM CHLORIDE 500 ML 500 ML 1000 ML IV (15:05)
[2024-03-15] MEDS: HEPARIN 500 UNIT/5 ML SYRINGE 250 UNIT IVF (16:13)
[2024-03-19 08:04] VITALS: BP 135/82; PULSE 89; RESP 16; TEMP 36.2; O2SAT 98
[2024-03-19] MEDS: 0.9 % SODIUM CHLORIDE 500 ML 500 ML 1000 ML IV (08:05)
[2024-03-19] MEDS: SODIUM CHLORIDE 0.9 % (FLUSH) 10 ML SYRINGE IVF ×2 (08:07→09:10)
[2024-03-19] MEDS: HEPARIN 500 UNIT/5 ML SYRINGE 250 UNIT IVF (09:10)
[2024-03-22] MEDS: 0.9 % SODIUM CHLORIDE 500 ML 500 ML 1000 ML IV (15:10)
[2024-03-22 15:15] VITALS: BP 129/1; PULSE 90; RESP 16; TEMP 36.6; O2SAT 97
[2024-03-22] MEDS: HEPARIN 500 UNIT/5 ML SYRINGE 250 UNIT IVF (15:24)
[2024-03-22] MEDS: SODIUM CHLORIDE 0.9 % (FLUSH) 10 ML SYRINGE IVF (15:24)
[2024-03-26] MEDS: SODIUM CHLORIDE 0.9 % (FLUSH) 10 ML SYRINGE IVF ×2 (13:46→14:52)
[2024-03-26] MEDS: 0.9 % SODIUM CHLORIDE 500 ML 500 ML 1000 ML IV (13:48)
[2024-03-26] MEDS: HEPARIN 500 UNIT/5 ML SYRINGE 250 UNIT IVF (14:52)
[2024-03-30] MEDS: 0.9 % SODIUM CHLORIDE 500 ML 500 ML 1000 ML IV (10:30)
[2024-03-30 11:23] VITALS: BP 128/81; PULSE 77; RESP 18; O2SAT 96
[2024-03-30] MEDS: HEPARIN 500 UNIT/5 ML SYRINGE 250 UNIT IVF (11:39)
[2024-03-30] MEDS: SODIUM CHLORIDE 0.9 % (FLUSH) 10 ML SYRINGE IVF (11:39)
[2024-04-02 13:45] VITALS: BP 118/83; PULSE 95; RESP 16; TEMP 36.7; O2SAT 97
[2024-04-02] MEDS: 0.9 % SODIUM CHLORIDE 500 ML 500 ML 1000 ML IV ×2 (13:56→14:27)
[2024-04-02] MEDS: SODIUM CHLORIDE 0.9 % (FLUSH) 10 ML SYRINGE IVF ×2 (13:56→15:11)
[2024-04-02] MEDS: HEPARIN 500 UNIT/5 ML SYRINGE 250 UNIT IVF (15:10)
[2024-04-05 10:40] VITALS: BP 127/84; PULSE 95; RESP 16; TEMP 36.8; O2SAT 96
[2024-04-05] MEDS: SODIUM CHLORIDE 0.9 % (FLUSH) 10 ML SYRINGE IVF ×2 (10:43→11:53)
[2024-04-05] MEDS: 0.9 % SODIUM CHLORIDE 500 ML 500 ML 1000 ML IV (10:43)
[2024-04-05] MEDS: HEPARIN 500 UNIT/5 ML SYRINGE 250 UNIT IVF (11:53)
[2024-04-09 08:13] VITALS: BP 109/76; PULSE 89; RESP 16; TEMP 36.7; O2SAT 97
[2024-04-09] MEDS: 0.9 % SODIUM CHLORIDE 500 ML 500 ML 1000 ML IV (08:20)
[2024-04-09] MEDS: SODIUM CHLORIDE 0.9 % (FLUSH) 10 ML SYRINGE IVF ×2 (08:20→09:27)
[2024-04-09] MEDS: HEPARIN 500 UNIT/5 ML SYRINGE 250 UNIT IVF (09:27)
[2024-04-12 13:39] VITALS: BP 129/88; PULSE 94; RESP 16; TEMP 36.4; O2SAT 98
[2024-04-12] MEDS: SODIUM CHLORIDE 0.9 % (FLUSH) 10 ML SYRINGE IVF ×2 (13:44→14:50)
[2024-04-12] MEDS: 0.9 % SODIUM CHLORIDE 500 ML 500 ML 1000 ML IV (13:45)
[2024-04-12] MEDS: HEPARIN 500 UNIT/5 ML SYRINGE 250 UNIT IVF (14:50)
[2024-04-16] MEDS: 0.9 % SODIUM CHLORIDE 500 ML 500 ML 1000 ML IV ×2 (08:17→09:03)
[2024-04-16 08:30] VITALS: BP 127/85; PULSE 89; RESP 16; TEMP 36.7; O2SAT 97
[2024-04-16] MEDS: HEPARIN 500 UNIT/5 ML SYRINGE 250 UNIT IVF (09:39)
[2024-04-16] MEDS: SODIUM CHLORIDE 0.9 % (FLUSH) 10 ML SYRINGE IVF (09:39)
[2024-04-19] MEDS: 0.9 % SODIUM CHLORIDE 500 ML 500 ML 1000 ML IV ×2 (14:55→15:30)
[2024-04-19 15:23] VITALS: BP 122/85; PULSE 90; RESP 16; TEMP 36.1; O2SAT 98
[2024-04-19] MEDS: SODIUM CHLORIDE 0.9 % (FLUSH) 10 ML SYRINGE IVF (15:31)
[2024-04-19] MEDS: HEPARIN 500 UNIT/5 ML SYRINGE 250 UNIT IVF (15:31)
[2024-04-23 08:24] VITALS: BP 124/84; PULSE 93; RESP 16; TEMP 36.1; O2SAT 97
[2024-04-23] MEDS: SODIUM CHLORIDE 0.9 % (FLUSH) 10 ML SYRINGE IVF ×2 (08:29→09:40)
[2024-04-23] MEDS: 0.9 % SODIUM CHLORIDE 500 ML 500 ML 1000 ML IV (08:30)
[2024-04-23] MEDS: HEPARIN 500 UNIT/5 ML SYRINGE 250 UNIT IVF (09:40)
[2024-04-26] MEDS: HEPARIN 500 UNIT/5 ML SYRINGE 250 UNIT IVF (08:33)
[2024-04-26] MEDS: SODIUM CHLORIDE 0.9 % (FLUSH) 10 ML SYRINGE IVF (08:33)
[2024-04-26] MEDS: 0.9 % SODIUM CHLORIDE 500 ML 500 ML IV (08:33)
[2024-04-26 08:41] VITALS: BP 122/83; PULSE 73; RESP 14; TEMP 36.1; O2SAT 95
[2024-04-26] MEDS: 0.9 % SODIUM CHLORIDE 500 ML 500 ML 1000 ML IV (09:01)
[2024-04-30] MEDS: SODIUM CHLORIDE 0.9 % (FLUSH) 10 ML SYRINGE IVF ×2 (08:10→09:17)
[2024-04-30] MEDS: 0.9 % SODIUM CHLORIDE 500 ML 500 ML 1000 ML IV (08:10)
[2024-04-30 08:15] VITALS: BP 128/83; PULSE 89; RESP 16; TEMP 36.8; O2SAT 94
[2024-04-30] MEDS: HEPARIN 500 UNIT/5 ML SYRINGE 250 UNIT IVF (09:17)
[2024-05-03] MEDS: 0.9 % SODIUM CHLORIDE 500 ML 500 ML 1000 ML IV (15:06)
[2024-05-03] MEDS: SODIUM CHLORIDE 0.9 % (FLUSH) 10 ML SYRINGE IVF ×2 (15:06→16:08)
[2024-05-03 15:11] VITALS: BP 139/81; PULSE 87; RESP 18; TEMP 36.9; O2SAT 97
[2024-05-03] MEDS: HEPARIN 500 UNIT/5 ML SYRINGE 250 UNIT IVF (16:08)
[2024-05-07 08:11] VITALS: BP 114/81; PULSE 93; RESP 16; TEMP 36.7; O2SAT 97
[2024-05-07] MEDS: HEPARIN 500 UNIT/5 ML SYRINGE 250 UNIT IVF (08:21)
[2024-05-07] MEDS: 0.9 % SODIUM CHLORIDE 500 ML 500 ML 1000 ML IV (08:21)
[2024-05-07] MEDS: SODIUM CHLORIDE 0.9 % (FLUSH) 10 ML SYRINGE IVF (08:22)
[2024-05-14 08:10] VITALS: BP 113/77; PULSE 95; RESP 16; TEMP 36.3; O2SAT 97
[2024-05-14] MEDS: SODIUM CHLORIDE 0.9 % (FLUSH) 10 ML SYRINGE IVF ×2 (08:14→09:20)
[2024-05-14] MEDS: 0.9 % SODIUM CHLORIDE 500 ML 500 ML 1000 ML IV (08:15)
[2024-05-14] MEDS: HEPARIN 500 UNIT/5 ML SYRINGE 250 UNIT IVF (09:20)
[2024-05-17 08:10] VITALS: BP 114/81; PULSE 84; RESP 16; TEMP 36.6; O2SAT 98
[2024-05-17] MEDS: SODIUM CHLORIDE 0.9 % (FLUSH) 10 ML SYRINGE IVF (08:13)
[2024-05-17] MEDS: 0.9 % SODIUM CHLORIDE 500 ML 500 ML 1000 ML IV (08:13)
[2024-05-17] MEDS: HEPARIN 500 UNIT/5 ML SYRINGE 250 UNIT IVF (08:13)
[2024-05-21 08:12] VITALS: BP 118/72; PULSE 85; RESP 16; TEMP 36.4; O2SAT 97
[2024-05-21] MEDS: 0.9 % SODIUM CHLORIDE 500 ML 500 ML 1000 ML IV (08:15)
[2024-05-21] MEDS: SODIUM CHLORIDE 0.9 % (FLUSH) 10 ML SYRINGE IVF ×2 (08:15→09:15)
[2024-05-21] MEDS: HEPARIN 500 UNIT/5 ML SYRINGE 250 UNIT IVF (09:15)
[2024-05-24 08:13] VITALS: BP 116/80; PULSE 90; RESP 16; TEMP 36.3; O2SAT 97
[2024-05-24] MEDS: 0.9 % SODIUM CHLORIDE 500 ML 500 ML 1000 ML IV (08:20)
[2024-05-24] MEDS: SODIUM CHLORIDE 0.9 % (FLUSH) 10 ML SYRINGE IVF ×2 (08:20→09:26)
[2024-05-24] MEDS: HEPARIN 500 UNIT/5 ML SYRINGE 250 UNIT IVF (09:26)
[2024-05-28] MEDS: SODIUM CHLORIDE 0.9 % (FLUSH) 10 ML SYRINGE IVF ×2 (08:15→09:20)
[2024-05-28] MEDS: 0.9 % SODIUM CHLORIDE 500 ML 500 ML 1000 ML IV (08:15)
[2024-05-28 08:17] VITALS: BP 129/82; PULSE 86; RESP 16; TEMP 36; O2SAT 97
[2024-05-28] MEDS: HEPARIN 500 UNIT/5 ML SYRINGE 250 UNIT IVF (09:20)
[2024-05-31 08:10] VITALS: BP 126/88; PULSE 98; RESP 16; TEMP 36.6; O2SAT 96
[2024-05-31] MEDS: 0.9 % SODIUM CHLORIDE 500 ML 500 ML 1000 ML IV (08:20)
[2024-05-31] MEDS: SODIUM CHLORIDE 0.9 % (FLUSH) 10 ML SYRINGE IVF ×2 (08:21→09:25)
[2024-05-31] MEDS: HEPARIN 500 UNIT/5 ML SYRINGE 250 UNIT IVF (10:25)
[2024-06-04 08:10] VITALS: BP 122/82; PULSE 80; RESP 16; TEMP 36.3; O2SAT 96
[2024-06-04] MEDS: SODIUM CHLORIDE 0.9 % (FLUSH) 10 ML SYRINGE IVF ×2 (08:12→09:20)
[2024-06-04] MEDS: 0.9 % SODIUM CHLORIDE 500 ML 500 ML 1000 ML IV (08:14)
[2024-06-04] MEDS: HEPARIN 500 UNIT/5 ML SYRINGE 250 UNIT IVF (09:20)
[2024-06-07 08:17] VITALS: BP 132/88; PULSE 108; RESP 16; TEMP 36.9; O2SAT 98
[2024-06-07] MEDS: SODIUM CHLORIDE 0.9 % (FLUSH) 10 ML SYRINGE IVF ×2 (08:18→09:25)
[2024-06-07] MEDS: 0.9 % SODIUM CHLORIDE 500 ML 500 ML 1000 ML IV (08:18)
[2024-06-07] MEDS: HEPARIN 500 UNIT/5 ML SYRINGE 250 UNIT IVF (09:25)
[2024-06-11 08:14] VITALS: BP 113/82; PULSE 94; RESP 16; TEMP 36.6; O2SAT 97
[2024-06-11] MEDS: 0.9 % SODIUM CHLORIDE 1000 ml 1,000 ML IV (08:19)
[2024-06-11] MEDS: HEPARIN 500 UNIT/5 ML SYRINGE 250 UNIT IVF (08:21)
[2024-06-11] MEDS: SODIUM CHLORIDE 0.9 % (FLUSH) 10 ML SYRINGE IVF (08:24)
[2024-06-14] MEDS: SODIUM CHLORIDE 0.9 % (FLUSH) 10 ML SYRINGE IVF ×2 (14:48→15:51)
[2024-06-14] MEDS: 0.9 % SODIUM CHLORIDE 500 ML 500 ML 1000 ML IV (14:49)
[2024-06-14 14:52] VITALS: BP 130/87; PULSE 92; RESP 16; TEMP 36.8; O2SAT 98
[2024-06-14] MEDS: HEPARIN 500 UNIT/5 ML SYRINGE 250 UNIT IVF (15:51)
[2024-06-18 08:11] VITALS: BP 126/85; PULSE 78; RESP 16; TEMP 36.7; O2SAT 97
[2024-06-18] MEDS: SODIUM CHLORIDE 0.9 % (FLUSH) 10 ML SYRINGE IVF ×2 (08:17→09:22)
[2024-06-18] MEDS: 0.9 % SODIUM CHLORIDE 500 ML 500 ML 1000 ML IV (08:18)
[2024-06-18] MEDS: HEPARIN 500 UNIT/5 ML SYRINGE 250 UNIT IVF (09:23)
[2024-06-21 09:23] VITALS: BP 147/87; PULSE 93; RESP 16; TEMP 37.1; O2SAT 99
[2024-06-21] MEDS: SODIUM CHLORIDE 0.9 % (FLUSH) 10 ML SYRINGE IVF ×2 (09:30→10:10)
[2024-06-21] MEDS: HEPARIN 500 UNIT/5 ML SYRINGE 250 UNIT IVF (10:10)
[2024-06-25] MEDS: 0.9 % SODIUM CHLORIDE 1000 ml 1,000 ML IV (08:15)
[2024-06-25] MEDS: SODIUM CHLORIDE 0.9 % (FLUSH) 10 ML SYRINGE IVF ×2 (08:17→09:20)
[2024-06-25 08:20] VITALS: BP 116/78; PULSE 98; RESP 16; TEMP 36.6; O2SAT 97
[2024-06-25] MEDS: HEPARIN 500 UNIT/5 ML SYRINGE 250 UNIT IVF (09:20)
[2024-06-28 09:49] VITALS: BP 107/76; PULSE 111; RESP 16; TEMP 36.4; O2SAT 96
[2024-06-28] MEDS: 0.9 % SODIUM CHLORIDE 1000 ml 1,000 ML IV (09:56)
[2024-06-28] MEDS: SODIUM CHLORIDE 0.9 % (FLUSH) 10 ML SYRINGE IVF ×2 (09:56→11:08)
[2024-06-28] MEDS: HEPARIN 500 UNIT/5 ML SYRINGE 250 UNIT IVF (11:07)
[2024-07-02] MEDS: 0.9 % SODIUM CHLORIDE 1000 ml 1,000 ML IV (08:10)
[2024-07-02] MEDS: SODIUM CHLORIDE 0.9 % (FLUSH) 10 ML SYRINGE IVF ×2 (08:10→09:27)
[2024-07-02 08:13] VITALS: BP 112/75; PULSE 81; RESP 18; TEMP 36.2; O2SAT 96
[2024-07-02] MEDS: HEPARIN 500 UNIT/5 ML SYRINGE 250 UNIT IVF (09:27)
[2024-07-05 09:54] VITALS: BP 123/84; PULSE 91; RESP 17; TEMP 37.4; O2SAT 96
[2024-07-05] MEDS: 0.9 % SODIUM CHLORIDE 1000 ml 1,000 ML IV (10:02)
[2024-07-05] MEDS: HEPARIN 500 UNIT/5 ML SYRINGE 250 UNIT IVF (11:07)
[2024-07-09 14:30] VITALS: BP 117/88; PULSE 100; RESP 16; TEMP 35.9; O2SAT 99
[2024-07-09] MEDS: 0.9 % SODIUM CHLORIDE 1000 ml 1,000 ML IV (14:45)
[2024-07-12 14:07] VITALS: BP 130/86; PULSE 100; RESP 22; TEMP 36.7; O2SAT 99
[2024-07-12] MEDS: 0.9 % SODIUM CHLORIDE 1000 ml 1,000 ML IV (14:21)
[2024-07-12] MEDS: SODIUM CHLORIDE 0.9 % (FLUSH) 10 ML SYRINGE IVF ×2 (14:21→15:27)
[2024-07-12] MEDS: HEPARIN 500 UNIT/5 ML SYRINGE 250 UNIT IVF (15:27)
[2024-07-16] MEDS: SODIUM CHLORIDE 0.9 % (FLUSH) 10 ML SYRINGE IVF (08:44)
[2024-07-16] MEDS: 0.9 % SODIUM CHLORIDE 1000 ml 1,000 ML IV (08:45)
[2024-07-19 13:47] VITALS: BP 132/80; PULSE 110; RESP 22; TEMP 36.4; O2SAT 97
[2024-07-19] MEDS: HEPARIN 500 UNIT/5 ML SYRINGE 250 UNIT IVF (13:58)
[2024-07-19] MEDS: 0.9 % SODIUM CHLORIDE 1000 ml 1,000 ML IV (13:58)
[2024-07-19] MEDS: SODIUM CHLORIDE 0.9 % (FLUSH) 10 ML SYRINGE IVF (13:59)
[2024-07-23] MEDS: SODIUM CHLORIDE 0.9 % (FLUSH) 10 ML SYRINGE IVF ×2 (13:54→15:05)
[2024-07-23] MEDS: 0.9 % SODIUM CHLORIDE 1000 ml 1,000 ML IV (13:55)
[2024-07-23 13:56] VITALS: BP 125/86; PULSE 90; RESP 18; TEMP 36.2; O2SAT 98
[2024-07-23] MEDS: HEPARIN 500 UNIT/5 ML SYRINGE 250 UNIT IVF (15:05)
== END 2024-07-24 23:59 | disposition home or self-care (01) ==
LOC: CCIC 08:00
PROVIDERS: PCP Family Medicine; Referring Provider Family Medicine; Visit Provider Clinical Nurse Specialist
DX: G90.A Postural orthostatic tachycardia syndrome [POTS] (principal)
CPT/HCPCS: 87624; 88142; 96360; 96365; 99211; A4221; J1642; J7030

== ENCOUNTER 2024-09-06 08:57 | Outpatient (CLI) | payer BC, SELFPAY ==
--- NOTE | 2024-09-06 09:15 | CRLHL7_ITS ---
For Patients: As a result of the Century Cures Act, medical imaging exams and procedure reports are released immediately into your electronic medical record. You may view this report before your referring provider. If you have questions, please contact your health care provider. BILATERAL DIGITAL SCREENING MAMMOGRAM WITH COMPUTER-AIDED DETECTION AND TOMOSYNTHESIS CLINICAL HISTORY: : Routine screening exam. COMPARISON: 10/22/2019 TECHNIQUE: Digital mammogram in CC and MLO projections including computer-aided detection (CAD). Tomosynthesis was used in this interpretation. BREAST COMPOSITION: The breasts are heterogeneously dense, which may obscure small masses. FINDINGS: RIGHT Breast: No suspicious findings LEFT Breast: Focal nodular density at 6 o`clock 5 cm from the nipple. IMPRESSION: LEFT breast asymmetry/mass. RECOMMENDATIONS: Additional mammographic views of the LEFT breast including 3D spot compression CC/MLO. LEFT breast ultrasound may also be required. The [facility] will contact the patient. A lay language report of this examination will be provided to the patient. BI-RADS Category 0: Incomplete: Need Additional Imaging Evaluation Dictated by Jose Carlos Cochran MD @ 09/13/2024 1:30:32 PM Dictated by: Jose Carlos Cochran MD @ 09/13/2024 13:30:37 (Electronically Signed)
== END 2024-09-06 08:58 | disposition home or self-care (01) ==
LOC: MAMMO 08:57
PROVIDERS: PCP Family Medicine; Visit Provider Obstetrics & Gynecology
DX: Z12.31 Encounter for screening mammogram for malignant neoplasm of breast (principal); R92.333 Mammographic heterogeneous density, bilateral breasts; N63.20 Unspecified lump in the left breast, unspecified quadrant
CPT/HCPCS: 77063; 77067

== ENCOUNTER 2024-09-21 09:35 | Outpatient (CLI) | payer BC, SELFPAY ==
--- NOTE | 2024-09-21 09:45 | CRLHL7_ITS ---
For Patients: As a result of the Century Cures Act, medical imaging exams and procedure reports are released immediately into your electronic medical record. You may view this report before your referring provider. If you have questions, please contact your health care provider. DIGITAL DIAGNOSTIC LEFT BREAST MAMMOGRAM WITH TOMOSYNTHESIS LEFT BREAST ULTRASOUND CLINICAL HISTORY: LEFT breast mass/asymmetry. COMPARISON: 09/06/24, 10/22/2019. TECHNIQUE: Digital LEFT mammogram in two projections. Tomosynthesis was used in this interpretation. Real-time ultrasound imaging of LEFT breast with imaging documentation. Scanning was performed by both the technologist and the radiologist. BREAST COMPOSITION: The breasts are heterogeneously dense, which may obscure small masses. FINDINGS: 3D spot compression CC/MLO LEFT breast mammogram images submitted. Persistent nodular density is located within the inferior LEFT breast without architectural distortion. Adjacent punctate microcalcifications are present. Targeted LEFT breast ultrasound performed. At 6 o`clock 5 cm from the nipple there is a hypoechoic nodule measuring 14 x 6 x 8 mm. An additional solid nodule is present at 6 o`clock 3 cm from the nipple measuring 6 x 4 x 5 mm. IMPRESSION: Two solid nodules LEFT breast 6 o`clock measuring 6 mm and 14 mm, possible intramammary lymph nodes. Adjacent punctate calcifications. RECOMMENDATIONS: Ultrasound-guided core needle biopsy of both nodules. A lay language report of this examination will be provided to the patient. BI-RADS Category 4. Suspicious. Dictated by Jose Carlos Cochran MD @ 09/21/2024 11:12:36 AM/NEENA:christopher TURCIOS/Dictated by: Jose Carlos Cochran MD @ 09/21/2024 11:12:00 AM (Electronically Signed)
--- NOTE | 2024-09-21 10:15 | CRLHL7_ITS ---
For Patients: As a result of the Century Cures Act, medical imaging exams and procedure reports are released immediately into your electronic medical record. You may view this report before your referring provider. If you have questions, please contact your health care provider. PLEASE SEE DIAGNOSTIC MAMMOGRAM REPORT FOR LEFT BREAST ULTRASOUND IN CRTIS. JR/Dictated by: Jose Carlos Cochran MD @ 09/21/2024 11:12:00 AM (Electronically Signed)
== END 2024-09-21 09:36 | disposition home or self-care (01) ==
LOC: MAMMO 09:37
PROVIDERS: PCP Family Medicine; Visit Provider Family Medicine
DX: N63.20 Unspecified lump in the left breast, unspecified quadrant (principal); R92.8 Other abnormal and inconclusive findings on diagnostic imaging of breast
CPT/HCPCS: 76642; 77065; G0279

== ENCOUNTER 2024-09-24 09:06 | Outpatient (CLI) | payer BC, SELFPAY ==
--- OUTSIDE RECORDS SUMMARY | 2024-09-07 09:00 | XMS_ITS | Continuity of Care Document ---
Author Organization [facility] Address [address] [address] [place] [address] Phone Care Team Providers Care Rippler Name Role Phone Natali Mahoney MD Unavailable Unavailable Allergies, Adverse Reactions, Alerts Substance Reaction Status Criticality adhesive tape HivesHives Active No Information latex HivesHives Active No Information AMOXICILLIN TRIHYDRATE Nausea/Vomiting Active No Information POTASSIUM CLAVULANATE Nausea/Vomiting Active No Information Medications Medication Instructions Dosage Effective Dates (start - stop) Status Comments Vitamin D3 125 mcg (5,000 unit) tablet take 1 by Oral route every day 1 - Active Zyrtec 10 mg tablet take 1 tablet by ORAL route every day prn 10 MG - Active Tagamet HB 200 mg tablet take 1 tablet by oral route every day 200 MG - Active quercetin 500 mg capsule - Active prednisone 20 mg tablet take 1 Tablet by ORAL route every day 20 MG - Active ondansetron 4 mg disintegrating tablet take 1 Tablet by Oral route 4 times every day as needed for nausea as needed 1 Tablet - Active NORETHINDRONE ACETATE (unknown strength) take 1 Tablet by oral route every day 10 days in a row every 3 months Not Available - Active Mounjaro 7.5 mg/0.5 mL subcutaneous pen injector inject (7.5MG) by subcutaneous route every week 7.5 MG - Active MAGNESIUM (unknown strength) take 2 by Oral route every day Not Available - Active LOTREXONE (unknown strength) Not Available - Active Kyleena 17.5 mcg/24 hr (up to 5 years) 19.5 mg intrauterine device - Active Herbal Medications/Supplement s unknown methyl b complex orally, once per day - Active fludrocortisone 0.1 mg tablet take 1 Tablet by oral route every day 0.1 MG - Active Cromolyn Sodium 200 mg Oral TABLET - Active clonidine HCl 0.2 mg tablet take 1 tablet by oral route 2 times every day 0.2 MG - Active aspirin 81 mg tablet,delayed release take 1 tablet by oral route every day 81 MG - Active Procedures Procedure Date Offic/outpt E&m [facility] Advance Directives Directive Yes / No Effective Date File Name No Information Encounters Encounter Description Practice Location Reason(s) For Visit Diagnoses Date Provider Providers Copied on Encounter Offic/outpt E&m [facility], [address] [address], [place], [place], [id number], [place] tel:[phone] [facility] GI Symptoms or Concerns (chief complaint) NauseaDyspepsiaCh ronic idiopathic constipationDiarr hea, unspecified type 5 Denzel LEDEZMA Natali. [address] [facility], [facility] [address], [place], [place], [id number] , [place]. tel:[phone] Referring Provider: Moses Renteria MD, [address] [place], [address]. tel:[phone] Family History Family Member Type Diagnosis Age At Onset No Information Payers Payer name Insurance type Covered constitution party ID Authorvamshi floyd(s) [facility] [id number] Social History Type Description Quantity Date Captured Comments Alcohol Use Details No Caffeine Use Details Unknown Tobacco Use Status undefined Smoking Status Never smoker Non-Smoking Tobacco Use Details : No Details Available : No Details Available Sex Female Vital Signs Date / Time: Height Weight BMI Pulse Rate Blood Pressure Temperature Respiratory Rate Body Surface Area Head Circumference Head Circ. Percentile Wt./Jag. Percentile BMI percentile Pulse Ox Inhaled Ox 1:36 PM 67.00 in 99.337 kg (219.00 lbs) 34.3 0 kg/m eter (2) 106 /min 169/90 mm[Hg] Chief Complaint And Reason For Visit From encounter dated '09/07/2024 14:00'. GI Symptoms or Concerns (chief complaint). Description: Martin is a 39-year-old female sent by Dr. Duong for evaluation of chronic GI symptoms including nausea, irregular bowel habits. She has had chronic GI issues for years. Specifically she has had symptoms after eating. These consist of nausea, upset stomach. Most foods caused these symptoms. She would also have diarrhea alternating with constipation. Constipation would last for 3 to 4 days. Over the past several years that she has been diagnosed with EDS, mast cell activation syndrome, POTS as well as prediabetes. With these diagnoses she has been started on cromolyn, compounded tirzepatide with now good control of her symptoms. She does have some disinterest in food after her initial injection, but this improves several days later. She uses Zofran as needed for nausea, but has not needed to take this regularly.Outside labs show elevated CRP at 8.24 with upper limit of normal being 5. Hemoglobin A1c 05/01 was 5.4. CBC shows normal hemoglobin 14.9, MCV 90, platelets 265. TTG IgA and IgG were low. Normal CMP. She reports EGD 8 years ag o.PAST MEDICAL HISTORYAnxiety, depressionHyperlipidemiaHypertensionPrediabetesElevated BMIEDSMCAS, on cimetidinePOTS, status post port placement, receives IV fluids 3 days/weekInsomniaPAST SURGICAL HISTORYCholecystectomy 2013C-section 2012MEDICATIONS Reviewed in chart with patient. 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 No nicotine, alcohol. Uses medical marijuana. Follows a low histamine, gluten light, lactose light diet.FAMILY HISTORYPaternal family history unknown. Mother does not seek health care regularly. Reason For Referral Reason For Referral No Information History Of Present Illness Encounter Date Complaint History Of Present Illness GI Symptoms or Concerns Martin is a 39-year-old female sent by Dr. Duong for evaluation of chronic GI symptoms including nausea, irregular bowel habits. She has had chronic GI issues for years. Specifically she has had symptoms after eating. These consist of nausea, upset stomach. Most foods caused these symptoms. She would also have diarrhea alternating with constipation. Constipation would last for 3 to 4 days. Over the past several years that she has been diagnosed with EDS, mast cell activation syndrome, POTS as well as prediabetes. With these diagnoses she has been started on cromolyn, compounded tirzepatide with now good control of her symptoms. She does have some disinterest in food after her initial injection, but this improves several days later. She uses Zofran as needed for nausea, but has not needed to take this regularly.Outside labs show elevated CRP at 8.24 with upper limit of normal being 5. Hemoglobin A1c 05/01 was 5.4. CBC shows normal hemoglobin 14.9, MCV 90, platelets 265. TTG IgA and IgG were low. Normal CMP. She reports EGD 8 years ago.PAST MEDICAL HISTORYAnxiety, depressionHyperlipidemiaHypertensionPrediabetesElevated BMIEDSMCAS, on cimetidinePOTS, status post port placement, receives IV fluids 3 days/weekInsomniaPAST SURGICAL HISTORYCholecystectomy -section 2012MEDICATIONS Reviewed in chart with patient. 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 No nicotine, alcohol. Uses medical marijuana. Follows a low histamine, gluten light, lactose light diet.FAMILY HISTORYPaternal family history unknown. Mother does not seek health care regularly. Functional Status Date Functional Assessmen t No Information Instructions Date Instruction Additional Infor mation No Information Assessments Type Assessment Date assessment Nausea assessment Dyspepsia assessment Chronic idiopathic constipation assessment Diarrhea, unspecified type Landry-0 impression Nausea, dyspepsia, a lternating diarrhea and constipation. Interestingly her symptoms are markedly improved on tirzepatide. This speaks to potential rapid motility, which would be consistent with history of EDS. Discussed at length GI issues associated with EDS, including motility disorders, constipation, rectal prolapse. Discussed that these are symptomatically managed. MCAS with reactions to food should be managed with antihistamines and low histamine diet. In regards to her POTS, she is managing her fluids with IV fluids, increasing oral hydration, compression socks. She is using nausea medications as needed, and has a current prescription from outside provider.It was noted that she had an elevated CRP. Because of this I recommend fecal calprotectin to look for evidence of intestinal inflammation. If that was elevated, I would recommend endoscopy and colonoscopy with friend biopsies. Patient Care Teams Name Effective Dates (start - stop) Status Members No Information
--- OUTSIDE RECORDS SUMMARY | 2024-09-07 09:00 | XMS_ITS | Continuity of Care Document ---
Author Organization [facility] Address [address] [address] [place] [address] Phone Care Team Providers Care Cigarette Inspector Name Role Phone Natali Mahoney MD Unavailable [...] - Active Procedures Procedure Date Offic/outpt E&m [facility] Advance Directives Directive Yes / No Effective Date File Name No Information Encounters Encounter Description Practice Location Reason(s) For Visit Diagnoses Date Provider Providers Copied on Encounter Offic/outpt E&m [facility], [address] [address], [place], [place], [id number], [place] tel:[phone] [facility] GI Symptoms or Concerns (chief complaint) NauseaDyspepsiaCh ronic idiopathic constipationDiarr hea, unspecified type 5 Denzel LEDEZMA Natali. [address] [facility], [facility] [address], [place], [place], [id number] , [place]. tel:[phone] Referring Provider: Moses Renteria MD, [address] [place], [address]. 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 Uses [...]
--- OUTSIDE RECORDS SUMMARY | 2024-09-07 09:00 | XMS_ITS | Continuity of Care Document ---
Author Organization [facility] Address [address] [address] [place] [address] Phone Care Team Providers Care After School Counselor Name Role Phone Natali Mahoney MD Unavailable [...] - Active Procedures Procedure Date Offic/outpt E&m [facility] Advance Directives Directive Yes / No Effective Date File Name No Information Encounters Encounter Description Practice Location Reason(s) For Visit Diagnoses Date Provider Providers Copied on Encounter Offic/outpt E&m [facility], [address] [address], [place], [place], [id number], [place] tel:[phone] [facility] GI Symptoms or Concerns (chief complaint) NauseaDyspepsiaCh ronic idiopathic constipationDiarr hea, unspecified type 5 Denzel LEDEZMA Natali. [address] [facility] [facility] [address], [place], [place], [id number] , [place]. tel:[phone] Referring Provider: Moses Renteria MD, [address] [place], [address]. 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 No nicotine, alcohol. 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 No nicotine, alcohol. Uses medical [...]
--- OUTSIDE RECORDS SUMMARY | 2024-09-08 14:00 | XMS_ITS | Encounter Summary ---
Author Organization [facility] Address [address] [place] [address] Care Team Providers Care Physician General Practice Name Role Phone AjpuneetDevika MD Unavailable [phone] Shalom Renteria MD Unavailable Melissa Melvin PA-C Unavailable Shalom Renteria MD Primary Care Provider [phone] Malini Anderson PA-C Unavailable [phone] Melissa Melvin PA-C Unavailable Reason for Visit * Reason Comments Skin Check FBSC- red spot on le ft forearm- moles on her shoulders * Consultation (Routine: Next available opening) - Pending Review Specialty Diagnoses / Procedures Referred By Edi ayala Referred To Contact Dermatology Diagnoses Skin cancer screening Shalom Renteria MD [address] [place] [address] Phone: tel: fax: Referral ID Status Reason Start Date Expiration Date V isits Requested Visits Authorized [id number] Pending Review 02/28/2024 02/27/2025 1 1 Encounter Details Date Type Department Care Team ([facility] st Contact Info) Description 09/08/2024 2:00 PM CDT Office Visit [address] [phone] Shalom Renteria MD [address] [place] [phone] Malini Anderson PA-C [address] [place] [address] Dermatitis, seborrheic (Primary Dx); Skin cancer screening; Sebaceous hyperplasia; Seborrheic keratosis; Napier angioma; Multiple nevi; Lentigo; Dermatofibroma; Hx of atypical nevus Social History Tobacco Use Types Packs/Day Years Used Date Smoking Tobacco: Never Smokeless Tobacco: Never Alcohol Use Standard Drinks/Week Comments Not Currently 0 (1 standard drink = 0.6 oz pur e alcohol) PHQ-2 Answer Date Recorded PHQ-2 Score 2 04/08/2024 Adolescent Education Answer Date Record ed Getting School Help Needed Not on file 12/27 Food Insecurity Answer Date Recorded Within the past 12 months, d id you worry that your food would run out before you got money to buy more? No 11/23/2023 Within the past 12 months, d id the food you bought just not last and you didn t have money to get more? No 11/23/2023 Housing Stability Answer Date Recorded Do you have housing? (Housin g is defined as stable permanent housing and does not include staying outside in a car, in a tent, in an abandoned building, in an overnight penitentiary, or couch-surfing.) Yes 11/23/2023 Are you worried about losing your housing? No 11/23/2023 Financial Resource Strain Answer Date R ecorded Within the past 12 months, h ave you or your family members you live with been unable to get utilities (heat, electricity) when it was really needed? No 11/23/2023 Transportation Needs Answer Date Record ed Within the past 12 months, h as lack of transportation kept you from medical appointments, getting your medicines, non-medical meetings or appointments, work, or from getting things that you need? No 11/23/2023 Interpersonal Safety Answer Date Record ed Do you feel physically and e motionally safe where you currently live? Yes 02/28/2024 Within the past 12 months, h ave you been hit, slapped, kicked or otherwise physically hurt by someone? No 02/28/2024 Within the past 12 months, h ave you been humiliated or emotionally abused in other ways by your partner or ex-partner? No 02/28/2024 Comments No Sex and Gender Information Value Date Recorded Sex Assigned at Female 02/16/2019 10:59 AM ADVERTISING WRITER Legal Sex Female 11:51 AM CDT Gender Identity Female 02/16/2019 10:59 AM ADVERTISING WRITER Sexual Orientation Bisexual 08/08/2023 1: 47 PM CDT documented as of this encounter Patient Instructions * Patient Instructions* Malini Anderson PA-C - 09/08/2024 2:00 PM CDT Images from the original note were not included. Patient Education Proper skin care from [facility]: -Eliminate harsh soaps as they strip the natural oils from the skin, often resulting in dry itchy skin ( i.e. Dial, Zest, Che Spring) -Use mild soaps such as Cetaphil or Dove Sensitive Skin in the shower. You do not need to use soap on arms, legs, and trunk every time you shower unless visibly soiled. -Avoid hot or cold showers. -After showering, lightly dry off and apply moisturizing within 2-3 minutes. This will help trap moisture in the skin. -Aggressive use of a moisturizer at least 1-2 times a day to the entire body (including -Vanicream,Cetaphil, Aquaphor or Cerave) and moisturize hands after every washing. -We recommend using moisturizers that come in a tub that needs to be scooped out, not a pump. This has more of an oil base. It will hold moisture in your skin much better than a water base moisturizer. The above recommended are non- pore clogging. Wear a sunscreen with at least SPF 30 on your face, ears, neck and V of the chest daily. Wear sunscreen on other areas of the body if those areas are exposed to the sun throughout the day. Sunscreenscan contain physical and/or chemical blockers. Physical blockers are less likely to clog pores, these include zinc oxide and titanium dioxide. Reapply every two hour and after swimming. Sunscreen examples: https://www.ewg.org/sunscreen/ UV radiation UVA radiation remains constant throughout the day and throughout the year. It is a longer wavelength than UVB and therefore penetrates deeper into the skin leading to immediate and delayed tanning, photoaging, and skin cancer. 70-80% of UVA and UVB radiation occurs between the hours of 10am-2pm. UVB radiation UVB radiation causes the most harmful effects and is more significant during the summer months. However, snow and ice can reflect UVB radiation leading to skin damage during the winter months as well. UVB radiation is responsible for tanning, burning, inflammation, delayed erythema (pinkness), pigmentation (brown spots), and skin cancer. I recommend self monthly full body exams and yearly full body exams with a dermatology provider. Ifyou develop a new or changing lesion please follow up for examination. Most skin cancers are pink and scaly or pink and pearly. However, we do see blue/brown/black skin cancers. Consider the ABCDEs of melanoma when giving yourself your monthly full body exam ( don't forget the groin, buttocks, feet, toes, etc). A-asymmetry, B-borders, C-color, D-diameter, E-elevation or evolving. If you see any of these changes please follow up in clinic. If you cannot see your back I recommend purchasing a hand held mirror to use with a larger wall mirror. Checking for Skin Cancer You can find cancer early by checking your skin each month. There are 3 kinds of skin cancer. They are melanoma, basal cell carcinoma, and squamous cell carcinoma. Doing monthly skin checks is the best way to find new box or skin changes. Follow the instructions below for checking your skin. The ABCDEs of checking moles for melanoma Check your moles or growths for signs of melanoma using ABCDE: Asymmetry: the sides of the mole or growth don???t match Border: the edges are ragged, notched, or blurred Color: the color within the mole or growth varies Diameter: the mole or growth is larger than 6 mm (size of a pencil eraser) Evolving: the size, shape, or color of the mole or growth is changing (evolving is not shown in theimages below) Checking for other types of skin cancer Basal cell carcinoma or squamous cell carcinoma have symptoms such as: A spot or mole that looks different from all other box on your skin Changes in how an area feels, such as itching, tenderness, or pain Changes in the skin's surface, such as oozing, bleeding, or scaliness A sore that does not heal New swelling or redness beyond the border of a mole Who???s at risk? Anyone can get skin cancer. But you are at greater risk if you have: Fair skin, light-colored hair, or light-colored eyes Many moles or abnormal moles on your skin A history of sunburns from sunlight or tanning beds A family history of skin cancer A history of exposure to radiation or chemicals A weakened immune system If you have had skin cancer in the past, you are at risk for recurring skin cancer. How to check your skin Do your monthly skin checkups in front of a full-length mirror. Check all parts of your body, including your: Head (ears, face, neck, and scalp) Torso (front, back, and sides) Arms (tops, undersides, upper, and lower armpits) Hands (palms, backs, and fingers, including under the nails) Buttocks and genitals Legs (front, back, and sides) Feet (tops, soles, toes, including under the nails, and between toes) If you have a lot of moles, take digital photos of them each month. Make sure to take photos both up close and from a distance. These can help you see if any moles exchange floor manager time. Most skin changes are not cancer. But if you see any changes in your skin, call your doctor right away. Only he or she can diagnose a problem. If you have skin cancer, seeing your doctor can be the first step toward getting the treatment that could save your life. [employer] last reviewed this educational content on 07/06/2018 ?? [phone] [employer]. [address] [place] [address], [place] [address]. All rights reserved. This information is not intended as a substitute for professional medical care. Always follow your healthcare professional's instructions. When should I call my doctor? If you are worsening or not improving, please, contact us or seek urgent care as noted below. Who should I call with questions (adults)? [facility] (adult and pediatric): [phone] [facility] (adult): [phone] [facility] ([place], [place], [place] and [place]) [phone] For urgent needs outside of business hours call the [facility] at [phone] and ask for thedermatology resident exhibitions curator to be paged If this is a medical emergency and you are unable to reach an ER, Call 911 If you need a prescription refill, please contact your pharmacy. Refills are approved or denied by our Physicians during normal business hours, Friday through Fridays Per office policy, refills will not be granted if you have not been seen within the past year (or sooner depending on your child's condition documented in this encounter Progress Notes * Malini Anderson PA-C - 09/08/2024 2:00 PM CDT [facility] Dermatology Note Encounter Date: Sep 08, 2024 Office Visit Reviewed patients past medical history and pertinent chart review prior to patients visit today. Dermatology Problem List: Last skin check: 09/08/2024 # History of atypical nevi # Seborrheic dermatitis - Ketoconazole shampoo, Lidex solution # Sebaceous hyperplasia - Tretinoin 0.025% cream Personal Hx: No personal history of skin cancer Family Hx: Negative for family history of skin cancer. Assessment & Plan: # Seborrheic dermatitis, scalp - Discussed that this is a recurring rash for most people and will need some maintenance even afterrash has resolved. I recommend treatment with Ketoconazole 2% shampoo used with every shower for one week or so then 1-3 times per week as needed for maintenance. Recommend leaving the shampoo on for3-5 minutes before rinsing it off. Response is improved by adding additional anti-dandruff shampoos to your regimen in a rotating fashion. For example, using ketoconazole shampoo, then next shower using Selsun Blue shampoo, and then Head and Shoulders shampoo, and repeat. Also given fluocinonide 0.05% solution to use 1-2 times daily when rash is itchy. Use for 2-3 weeks at a time. Stop use when rash is not symptomatic and use for flares only. Advised to avoid face, groin and skin folds. Councled about use and side effects of thinning of the skin, striae, erythema, and worsening of rash with prolonged topical steroid use. # Sebaceous hyperplasia -Benign nature of skin lesion discussed with patient. Patient is interested in treatment. Patient would like to begin treatment with topical tretinoin 0.025% cream. Patient to apply this to face starting over the night, increasing to nightly as tolerated. Follow application with moisturizer. Discussed this may not completely resolve the lesions, but could possibly help decrease them in size and/or prevent others from developing. # History of atypical nevi # Multiple nevi, trunk and extremities # Solar lentigines - Continued observation recommended. - Nevi demonstrate no concerning features on dermoscopy. We discussed the importance of self exams at home. - ABCDEs: Counseled ABCDEs of melanoma: Asymmetry, Border (irregularity), Color (not uniform, changes in color), Diameter (greater than 6 mm which is about the size of a pencil eraser), and Evolving (any changes in preexisting moles). - Sun protection: Counseled SPF 30+ sunscreen, UPF clothing, sun avoidance, tanning bed avoidance. # Napier angiomas # Seborrheic keratoses # Dermatofibromas - We discussed the benign nature of the skin lesions. No treatment required. Continued observation recommended. Follow up with any concerns. Follow-up: 1 year(s) for follow up full body skin exam, prn for new or changing lesions or new concerns All risks, benefits and alternatives were discussed with patient. Patient is in agreement and understands the assessment and plan. All questions were answered. Susi Anderson PA-C [facility] CC: Skin cancer screening exam HPI: Ms. Linda Valente is a(n) 39 year old female who presents today as a new patient for a full body skin cancer screening. Patient has concerns today about irritation and flaking on the scalp. She also notices a bump on her right anterior upper arm, left posterior forearm and left anterior forearm. They are asymptomatic. She also mentions having numerous moles throughout. In the past, she has previously had a few atypical nevi removed. Patient is diligent with photoprotection. Patient is otherwise feeling well, without additional skin concerns. Physical Exam: Vitals: There were no vitals taken for this visit. SKIN: Total skin excluding the genitalia areas was performed. The exam included the head/face, neck, both arms, chest, back, abdomen, both legs, digits, mons pubis, buttock and nails. -Hope II -right anterior upper arm, left posterior forearm, and left anterior forearm, firm, hyperpigmented papule that dimples upon manipulation -scalp, macular erythema with overlying adherent scale -face, yellow to pink papule(s) with a central dell -multiple mcnulty/brown flat round macules and raised papules scattered throughout trunk, extremities, and face. No worrisome features for malignancy noted on examination. -scattered mcnulty, homogenous macules scattered on sun exposed areas of trunk, extremities, and face -scattered waxy, stuck on mcnulty/brown papules and patches on the trunk and extremities -several 1-2mm red dome shaped symmetric papules scattered on the trunk and extremities - No other lesions of concern on areas examined. Medications: Current Outpatient Medications Medication Sig Dispense Refill aspirin (ASA) 81 MG chewable tablet Take 81 mg by mouth daily. cetirizine (ZYRTEC) 10 MG tablet Take 10 mg by mouth 3 times daily. cimetidine 200 MG tablet Take 200 mg by mouth 2 times daily. cloNIDine (CATAPRES) 0.2 MG tablet TAKE ONE-HALF TO ONE TABLET BY MOUTH AT BEDTIME cromolyn (GASTROCROM) 100 MG/5ML (HIGH CONC) solution MIX 5-10 ML IN WATER AND DRINK BEFORE EACH MEAL AND AT BEDTIME fludrocortisone (FLORINEF) 0.1 MG tablet Take 0.2 mg by mouth daily. magnesium oxide (MAG-OX) 400 MG tablet Take 400 mg by mouth daily. NALTREXONE HCL, PAIN, PO Take 6.5 mg by mouth daily. norethindrone (MICRONOR) 0.35 MG tablet Take 1 tablet by mouth daily at 2 pm. ondansetron (ZOFRAN ODT) 4 MG ODT tab Take 1 tablet (4 mg) by mouth every 8 hours as needed for nausea. 30 tablet 3 predniSONE (DELTASONE) 20 MG tablet Take 40 mg by mouth daily. For 3 days as needed Quercetin 500 MG CAPS Take 500 mg by mouth daily. tirzepatide-Weight Management (ZEPBOUND) 2.5 MG/0.5ML prefilled pen Inject 0.5 mLs (2.5 mg) subcutaneously every 7 days. 2 mL 0 tirzepatide-Weight Management (ZEPBOUND) 5 MG/0.5ML prefilled pen Inject 0.5 mLs (5 mg) subcutaneously every 7 days. 2 mL 0 tirzepatide-Weight Management (ZEPBOUND) 7.5 MG/0.5ML prefilled pen Inject 0.5 mLs (7.5 mg) subcutaneously every 7 days. 2 mL 0 vitamin B-2 (RIBOFLAVIN) 100 MG TABS tablet Take 100 mg by mouth daily. vitamin D3 (CHOLECALCIFEROL) 125 MCG (5000 UT) tablet Take 5,000 Units by mouth daily. No current facility-administered medications for this visit. 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 documented in this encounter Plan of Treatment Upcoming Encounters Date Type Department Care Team (Late st Contact Info) Description 10/25/2024 10:15 AM CDT Therapy Visit [address] [place] [address] Alysa Chinchilla MD [facility] [address] [address] Monica Kellogg, PT [address] [place] [address] 11/08/2024 4:30 PM CDT Office Visit [facility] Internal Medicine [address] [place] [phone] Shalom Renteria MD [address] [place] [address] 11/22/2024 10:15 AM CDT Therapy Visit [facility] [address] [place] [address] [address] [place] [address] Alysa Chinchilla MD [address] [address] Monica Kellogg, PT [address] [place] [address] 09/09/2025 2:45 PM CDT Office Visit [address] [phone] Malini Anderson PA-C [address] [place] [phone] documented as of this encounter Visit Diagnoses Diagnosis Dermatitis, seborrheic- Primary Seborrheic dermatitis, unspecified Skin cancer screening Screening for malignant neoplasm of the skin Sebaceous hyperplasia Other specified disease of sebaceous glands Seborrheic keratosis Other seborrheic keratosis Napier angioma Nevus, non-neoplastic Multiple nevi Benign neoplasm of skin, site unspecified Lentigo Other dyschromia Dermatofibroma Benign neoplasm of skin, site unspecified Hx of atypical nevus Personal history of diseases of skin and subcutaneous tissue documented in this encounter Additional Health Concerns Assessment Noted Time PHQ-9 Depression Total Score: 5 04/07/19 25 2:20 PM ADVERTISING WRITER documented as of this encounter Care Teams Physician General Practice Relationship Specialty Start Date End Date Shalom Renteria MD [address] [place] [address] PCP - General Internal Medicine 03/03/24 Devika Fleming MD [address] [place] [address] Neurology 10/30/21 Shalom Renteria MD [address] [place] [address] Assigned PCP 12/29/23 Melissa Melvin PA-C [id number] [address] [place] [address] Physician Air Sampling And Monitoring Gastroenterology 03/03/24 Malini Anderson PA-C [address] [place] [address] Physician Air Sampling And Monitoring 03/03/24 Melissa Melvin PA-C [address] [place] [address] Assigned Gastroenterology Provider 04/29/24 documented as of this encounter
--- OUTSIDE RECORDS SUMMARY | 2024-09-08 14:00 | XMS_ITS | Encounter Summary ---
Author Organization [facility] Address [address] [place] [address] Care Team Providers Care Bench Molder Apprentice Name Role Phone AjpuneetDevika MD Unavailable [phone] Shalom Renteria MD Unavailable Melissa Melvin PA-C Unavailable Shalom Renteria MD Primary Care Provider [phone] Malini Anderson PA-C Unavailable [phone] Melissa Melvin PA-C Unavailable Reason for Visit * Reason Comments Skin Check FBSC- red spot on le ft forearm- moles on her shoulders * Consultation (Routine: Next available opening) - Pending Review Specialty Diagnoses / Procedures Referred By Edi ayala Referred To Contact Dermatology Diagnoses Skin cancer screening Shalom Renteria MD [address] [place] [address] Phone: tel: fax: Referral ID Status Reason Start Date Expiration Date V isits Requested Visits Authorized [id number] Pending Review 02/28/2024 02/27/2025 1 1 Encounter Details Date Type Department Care Team ([facility] st Contact Info) Description 09/08/2024 2:00 PM CDT Office Visit [address] [address] Shalom Renteria MD [address] [place] [address] Malini Anderson PA-C [address] [place] [address] Dermatitis, seborrheic (Primary Dx); Skin cancer screening; [...] in an abandoned building, in an overnight snf, or couch-surfing.) Yes 11/23/2023 Are you worried [...] Sex Assigned at Female 02/16/2019 10:59 AM WIRE MESH KNITTER Legal Sex Female 11:51 AM CDT Gender Identity Female 02/16/2019 10:59 AM WIRE MESH KNITTER Sexual Orientation Bisexual 08/08/2023 1: 47 PM CDT documented as of this encounter Patient Instructions * Patient Instructions* Malini Anderson PA-C - 09/08/2024 2:00 PM CDT Images from the original note were not included. Patient Education Proper skin care from [facility]: -Eliminate harsh soaps as they strip [...] can help you see if any moles change control specialist time. Most skin changes are not cancer. But if you see any changes in your skin, call your doctor right away. Only he or she can diagnose a problem. If you have skin cancer, seeing your doctor can be the first step toward getting the treatment that could save your life. [employer] last reviewed this educational content on 07/06/2018 ?? [id number] [employer]. [address] [place] [address], [place] [address]. All rights reserved. This information is not intended as a substitute for professional medical care. Always follow your healthcare professional's instructions. When should I call my doctor? If you are worsening or not improving, please, contact us or seek urgent care as noted below. Who should I call with questions (adults)? [facility] (adult and pediatric): [phone] [facility] (adult): [phone] [facility] [place], [place] and [place]) [phone] For urgent needs outside of business hours call the [facility] at [phone] and ask for thedermatology resident ironer machine to be paged If this is a [...] Anderson PA-C - 09/08/2024 2:00 PM CDT [facility] Dermatology Note Encounter Date: Sep 08, 2024 [...] All questions were answered. Susi Anderson PA-C [facility] Dermatology CC: Skin cancer screening exam HPI: [...] ovarian syndrome) CC Shalom Renteria MD [address] [place] [address] on close of this encounter. documented in this encounter Plan of Treatment Upcoming Encounters Date Type Department Care Team (Late st Contact Info) Description 10/25/2024 10:15 AM CDT Therapy Visit [address] [place] [address] Alysa Chinchilla MD [facility] [address] [address] Monica Kellogg, PT [address] [place] [address] 11/08/2024 4:30 PM CDT Office Visit [facility] Internal Medicine [address] 4th [place] [phone] Shalom Renteria MD [address] [place] [address] 11/22/2024 10:15 AM CDT Therapy Visit [facility] [address] [place] [address] [address] [place] [address] Alysa Chinchilla MD [address] [address] Monica Kellogg, PT [address] [place] [address] 09/09/2025 2:45 PM CDT Office Visit [address] [phone] Malini Anderson PA-C [address] [place] [address] documented as of this encounter Visit Diagnoses [...] Total Score: 5 04/07/19 25 2:20 PM WIRE MESH KNITTER documented as of this encounter Care Teams Bench Molder Apprentice Relationship Specialty Start Date End Date Shalom Renteria MD [address] [place] [address] PCP - General Internal Medicine 03/03/24 Devika Fleming MD [address] [place] [address] Neurology 10/30/21 Shalom Renteria MD [address] [place] [address] Assigned PCP 12/29/23 Melissa Melvin PA-C [address] [address] [place] [address] Physician Pulmonology Physician Gastroenterology 03/03/24 Malini Anderson PA-C [address] [place] [address] Physician Pulmonology Physician 03/03/24 Melissa Melvin PA-C [address] [place] [address] Assigned Gastroenterology Provider 04/29/24 documented as of this encounter
--- NOTE | 2024-09-24 09:15 | CRLHL7_ITS ---
For Patients: As a result of the Century Cures Act, medical imaging exams and procedure reports are released immediately into your electronic medical record. You may view this report before your referring provider. If you have questions, please contact your health care provider. ULTRASOUND-GUIDED BREAST BIOPSY OF TWO SITES AND POST-BIOPSY DIGITAL MAMMOGRAM FOR BIOPSY MARKER PLACEMENT CLINICAL HISTORY: Indeterminate nodules. COMPARISON STUDIES: 09/22/2024. TECHNIQUE: Real-time ultrasound with image documentation was used for targeting the breast lesions. A core needle biopsy was used to obtain core tissue samples with a 16-gauge needle. Post-biopsy CC and ML digital mammograms were obtained to document position of the biopsy marker. CONSENT and TIME OUT: The procedure, risks, and alternatives were explained to the patient and a consent was signed. [place] Protocol was followed including pre-procedure verification that relevant information/documentation was available, reviewed and properly matched to the patient; consent accurate and complete; and equipment and supplies available. Time Out was conducted just prior to starting procedure to verify the four required elements: patient identity, correct side/site marked (if applicable), procedure, relevant images/results properly labeled and displayed (if applicable). PROCEDURE: All biopsies were performed in a similar manner. The patient was positioned supine on the ultrasound table. The breast was prepped with ChloraPrep. 8 cc of 1 percent lidocaine used for local anesthesia. Core samples were obtained. A sterile metal biopsy clip was placed percutaneously to goldy the lesion position within the breast. The specimens were placed in 10% formalin and sent to the Pathology Department. Pressure was held on the biopsy site until all bleeding subsided. The skin incision was closed with Steri-Strips. An ice pack was positioned over the biopsy site. The patient tolerated the procedure well. Post-biopsy instructions were reviewed with the patient, and a written copy was given to her. SITE A: LATERALITY: LEFT breast. LESION: Nodular structure LEFT breast 6 o`clock 5 cm from the nipple measures 14 x 6 x 8 millimeters. SUSPICION: Low, probable intramammary lymph node. NUMBER OF SAMPLES: 5. BIOPSY CLIP SHAPE: HydroMARK. PROXIMITY OF CLIP TO TARGET: Within the lesion. SITE B: LATERALITY: LEFT breast. LESION: Hypoechoic nodule measures 6 x 4 x 5 millimeters 6 o`clock 3 cm from the nipple. SUSPICION: Low, probable cyst with adjacent benign calcifications. NUMBER OF SAMPLES: 5. BIOPSY CLIP SHAPE: Oval. PROXIMITY OF CLIP TO TARGET: Within the lesion. DISTANCE BETWEEN: Sites A and B: 1.5 cm. IMPRESSION: Ultrasound-guided breast biopsy of two sites. When the pathology report is available, an addendum to this report will be made. ACR not applicable Dictated by Jose Carlos Cochran MD @ 09/24/2024 10:11:25 AM jj/Dictated by: Jose Carlos Cochran MD @ 09/24/2024 10:11:00 AM (Electronically Signed)
--- NOTE | 2024-09-24 10:00 | CRLHL7_ITS ---
For Patients: As a result of the Century Cures Act, medical imaging exams and procedure reports are released immediately into your electronic medical record. You may view this report before your referring provider. If you have questions, please contact your health care provider. SEE ULTRASOUND-GUIDED LEFT BREAST BIOPSY PERFORMED SAME DAY CRL:audrey ventura/Dictated by: Jose Carlos Cochran MD @ 09/24/2024 10:11:00 AM (Electronically Signed)
--- OUTSIDE RECORDS SUMMARY | 2024-09-24 15:17 | XMS_ITS | Encounter Summary ---
Author Organization [facility] Address [address] [place] [address] Care Team Providers Care Burlap Spreader Name Role Phone Susie Vogt MD Primary Care Provider Devika Fleming MD Unavailable Devika Fleming MD Unavailable [phone] Devika Fleming MD Unavailable Alysa Chinchilla MD Primary Care Provider Shalom Renteria MD Unavailable Melissa Melvin PA-C Unavailable Shalom Renteria MD Primary Care Provider Malini Anderson PA-C Unavailable [phone] Melissa Melvin PA-C Unavailable Reason for Visit * Reason Onset Date Comments Refill Request 07/17/2019 Encounter Details Date Type Department Care Team (Late st Contact Info) Description 07/17/2019 [facility] Neurology [facility] [address] [place] [address] Devika Fleming MD [address] [place] [address] Refill Request Social History Tobacco Use Types Packs/Day Years Used Date Smoking Tobacco: Never Smokeless Tobacco: Never Alcohol Use Standard Drinks/Week Comments Not Currently 0 (1 standard drink = 0.6 oz pur e alcohol) PHQ-2 Answer Date Recorded PHQ-2 Score 2 02/22/2019 Comments Unknown Sex and Gender Information Value Date Recorded Sex Assigned at Female 02/16/2019 10:59 AM REGISTERED VETERINARY TECHNICIAN Legal Sex Female 11:51 AM CDT Gender Identity Female 02/16/2019 10:59 AM REGISTERED VETERINARY TECHNICIAN Sexual Orientation Bisexual 08/08/2023 1: 47 PM CDT documented as of this encounter Plan of Treatment Upcoming Encounters Date Type Department Care Team (Late st Contact Info) Description 10/25/2024 10:15 AM CDT Therapy Visit [address] [address] Alysa Chinchilla MD [email or web address] [address] [place] [address] Monica Kellogg, PT [address] [place] [address] 11/08/2024 4:30 PM CDT Office Visit [facility] Internal Medicine [address] [phone] Shalom Renteria MD [address] [place] [address] 11/22/2024 10:15 AM CDT Therapy Visit [address] [address] Alysa Chinchilla MD [employer] [employer] [address] [place] [address] Monica Kellogg, PT [address] [place] [address] 09/09/2025 2:45 PM CDT Office Visit [facility] [address] [phone] Malini Anderson PA-C [address] [address] documented as of this encounter Visit Diagnoses Diagnosis Chronic tension-type headache, intractable Chronic tension type headache Migraine with aura and without status migrainosus, not intractable Migraine with aura, without mention of intractable migraine without mention of status migrainosus documented in this encounter Care Teams Burlap Spreader Relationship Specialty Start Date End Date Susie Vogt MD PCP - General coach driver 12/29/18 08/07/[address] [facility] [id number] [place] [address] PCP - General 08/08/23 03/02/24 Shalom Renteria MD [address] [place] [address] PCP - General Internal Medicine 03/03/24 Devika Fleming MD [address] [place] [address] Assigned Neuroscience Provider 01/28/20 08/26/20 Devika Fleming MD [address] [place] [address] Neurology 10/30/21 Devika Fleming MD [address] [place] [address] Assigned Neuroscience Provider 02/23/22 08/27/23 Shalom Renteria MD [address] [place] [address] Assigned PCP 12/29/23 Melissa Melvin PA-C [address] [address] [place] [address] Physician Director Of Psychiatry Gastroenterology 03/03/24 Malini Anderson PA-C [address] [place] [address] Physician Director Of Psychiatry 03/03/24 Melissa Melvin PA-C [address] [facility] [place] [address] Assigned Gastroenterology Provider 04/29/24 documented as of this encounter
--- OUTSIDE RECORDS SUMMARY | 2024-09-24 15:17 | XMS_ITS | Encounter Summary ---
Author Organization [facility] Address [address] [place] [address] Care Team Providers Care Supervisor Sanding Name Role Phone AjpuneetDevika MD Unavailable [phone] Shalom Renteria MD Unavailable Melissa Melvin PA-C Unavailable Shalom Renteria MD Primary Care Provider [phone] Malini Anderson PA-C Unavailable [phone] Melissa Melvin PA-C Unavailable Reason for Referral * Consultation (Routine: Next available opening) - Pending Review Specialty Diagnoses / Procedures Referred By Edi ayala Referred To Contact Gastroenterology Diagnoses Chronic nausea Alternating constipation and diarrhea Shalom Renteria MD [address] [place] [address] Phone: tel: fax: [address] [address] Phone: tel: Referral ID Status Reason Start Date Expiration Date V isits Requested Visits Authorized [id number] Pending Review 05/17/2024 05/17/2025 1 1 Question Answer Reason for Referral: General GI Patient Scheduling Instructions: [facility] will call you to coordinate your care as prescribed by the provider. If you don t hear from a territory account representative within 2 business days, please call . Additional Information: Natali Mahoney (preferred), or Abhijit Street, or Raul Sepulveda Comments Please be aware that coverage of these services is subject to the terms and limitations of your health insurance plan. Call member services at your health plan with any benefit or coverage questions. [facility] will call you to coordinate your care as prescribed by the provider. If you don t hear from a territory account representative within 2 business days, please call . ERIZER MACHINE OPERATOR Encounter Details Date Type Department Care Team (Latest Contact Info) Description 05/14/2024 My[facility] Medical Advice [facility] Internal Medicine [address] [phone] Shalom Renteria MD [address] [place] [address] Alternating constipation and diarrhea (Primary Dx); Chronic nausea Social History Tobacco Use Types Packs/Day Years [...] in an abandoned building, in an overnight prison, or couch-surfing.) Yes 11/23/2023 Are you worried [...] Sex Assigned at Female 02/16/2019 10:59 AM MERCERIZER MACHINE OPERATOR Legal Sex Female 11:51 AM CDT Gender Identity Female 02/16/2019 10:59 AM MERCERIZER MACHINE OPERATOR Sexual Orientation Bisexual 08/08/2023 1: 47 PM CDT documented as of this encounter Miscellaneous Notes * Telephone Encounter - Shalom Renteria MD - 05/17/2024 2:23 PM CST Referral signed. Thanks, Shalom Renteria MD ERIZER MACHINE OPERATOR documented in this encounter Plan of Treatment Upcoming Encounters Date Type Department Care Team (Late st Contact Info) Description 10/25/2024 10:15 AM CDT Therapy Visit [facility] Rehabilitation Services [address] [place] [address] Alysa Chinchilla MD [facility] [address] [address] Monica Kellogg, PT [address] [place] [address] 11/08/2024 4:30 PM CDT Office Visit [facility] Internal Medicine [address] [place] [address] Shalom Renteria MD [address] [place] [address] 11/22/2024 10:15 AM CDT Therapy Visit [facility] [address] [facility] [address] [place] [address] Alysa Chinchilla MD [employer] [facility] [address] [address] Monica Kellogg, PT [address] [place] [address] 09/09/2025 2:45 PM CDT Office Visit [address] [phone] Malini Anderson PA-C [address] [place] [address] Scheduled Referrals Name Type Priority Associated Diagnoses Orde r Schedule Adult GI Radarman Referral - Consult Only Referral Routine: Next available opening Chronic nausea Alternating constipation and diarrhea Expected: 05/17/2024 (Approximate), Expires: 05/17/2025 documented as of this encounter Visit Diagnoses Diagnosis Alternating constipation and diarrhea- Primary Other symptoms involving digestive system Chronic nausea Nausea alone documented in this encounter Additional Health Concerns Assessment Noted Time PHQ-9 Depression Total Score: 5 04/07/19 25 2:20 PM MERCERIZER MACHINE OPERATOR documented as of this encounter Care Teams Supervisor Sanding Relationship Specialty Start Date End Date Shalom Renteria MD [address] [place] [address] PCP - General Internal Medicine 03/03/24 Devika Fleming MD [address] [place] [address] Neurology 10/30/21 Shalom Renteria MD [address] [place] [address] Assigned PCP 12/29/23 Melissa Melvin PA-C [address] [place] [address] Physician Auto Self Service Station Attendant Gastroenterology 03/03/24 Malini Anderson PA-C [address] [address] Physician Auto Self Service Station Attendant 03/03/24 Melissa Melvin PA-C [address] [place] [address] Assigned Gastroenterology Provider 04/29/24 documented as of this encounter
--- OUTSIDE RECORDS SUMMARY | 2024-09-24 15:17 | XMS_ITS | Encounter Summary ---
Author Organization [facility] Address [address] [place] [address] Care Team Providers Care Chairperson Anesthesiology Name Role Phone Susie Vogt MD Primary Care Provider Devika Fleming MD Unavailable [phone] Devika Fleming MD Unavailable [phone] Alysa Chinchilla MD Primary Care Provider [phone] Shalom Renteria MD Unavailable Melissa Melvin-C Unavailable Shalom Renteria MD Primary Care Provider [phone] Malini Anderson-C Unavailable [phone] Melissa Melvin-C Unavailable Encounter Details Date Type Department Care Team (Late st Contact Info) Description 08/14/2022 [facility] Neurology Clinic [address] 3rd [place] [address] Devika Fleming MD [address] [place] [address] Social History Tobacco Use Types Packs/Day Years Used Date Smoking Tobacco: Never Smokeless Tobacco: Never Alcohol Use Standard Drinks/Week Comments Not Currently 0 (1 standard drink = 0.6 oz pur e alcohol) PHQ-2 Answer Date Recorded PHQ-2 Score 2 02/18/2022 Comments Unknown Sex and Gender Information Value Date Recorded Sex Assigned at Female 02/16/2019 10:59 AM ROOFER METAL Legal Sex Female 11:51 AM CDT Gender Identity Female 02/16/2019 10:59 AM ROOFER METAL Sexual Orientation Bisexual 08/08/2023 1: 47 PM CDT documented as of this encounter Plan of Treatment Upcoming Encounters Date Type Department Care Team (Late st Contact Info) Description 10/25/2024 10:15 AM CDT Therapy Visit [address] [address] Alsya Chinchilla MD [employer] [facility] [address] [address] Monica Kellogg, PT [address] [place] [address] 11/08/2024 4:30 PM CDT Office Visit [facility] Internal Medicine [address] 4th [place] [phone] Shalom Renteria MD [address] [place] [address] 11/22/2024 10:15 AM CDT Therapy Visit [address] [address] Alysa Chinchilla MD [employer] [facility] [address] [address] Monica Kellogg, PT [address] [place] [address] 09/09/2025 2:45 PM CDT Office Visit [address] [phone] Malini Anderson PA-C [address] [place] [address] documented as of this encounter Visit Diagnoses Not on filedocumented in this encounter Care Teams Chairperson Anesthesiology Relationship Specialty Start Date End Date Susie Vogt MD PCP - General air purifier servicer 12/29/18 08/07/23 Alysa Chinchilla MD [facility] [address] [place] [address] PCP - General 08/08/23 03/02/24 Shalom Renteria MD [address] [place] [address] PCP - General Internal Medicine 03/03/24 Devika Fleming MD [address] [place] [address] Neurology 10/30/21 Devika Fleming MD [address] [place] [address] Assigned Neuroscience Provider 02/23/22 08/27/23 Shalom Renteria MD [address] [place] [address] Assigned PCP 12/29/23 Melissa Melvin PA-C [address] [place] [address] Physician Safety Consultant Gastroenterology 03/03/24 Malini Anderson PA-C [address] [place] [address] Physician Safety Consultant 03/03/24 Melissa Melvni PA-C [address] [place] [address] Assigned Gastroenterology Provider 04/29/24 documented as of this encounter
--- OUTSIDE RECORDS SUMMARY | 2024-09-24 15:17 | XMS_ITS | Encounter Summary ---
Author Organization [place] Address [address] [place] [address] Care Team Providers Care Broomcorn Seeder Name Role Phone AjpuneetDevika MD Unavailable [phone] Shalom Renteria MD Unavailable Melissa Melvin-C Unavailable Shalom Renteria MD Primary Care Provider [phone] Malini Anderson-Margarita Unavailable [phone] Melissa Melvin-C Unavailable Encounter Details Date Type Department Care Team (Late st Contact Info) Description 03/29/2024 [facility] [address] [address] Yecenia Jones Social History Tobacco Use Types Packs/Day Years Used Date Smoking Tobacco: Never Smokeless Tobacco: Never Alcohol Use Standard Drinks/Week Comments Not Currently 0 (1 standard drink = 0.6 oz pur e alcohol) PHQ-2 Answer Date Recorded PHQ-2 Score 2 11/28/2023 Adolescent Education Answer Date Record ed Getting [...] Answer Date Recorded Do you have housing? (Francesca rodríguez is defined as stable permanent housing and does not include staying outside in a car, in a tent, in an abandoned building, in an overnight fdc, or couch-surfing.) Yes 11/23/2023 Are you worried [...] Sex Assigned at Female 02/16/2019 10:59 AM SUPERVISOR BORDER DEPARTMENT Legal Sex Female 11:51 AM CDT Gender Identity Female 02/16/2019 10:59 AM SUPERVISOR BORDER DEPARTMENT Sexual Orientation Bisexual 08/08/2023 1: 47 PM CDT documented as of this encounter Plan of Treatment Upcoming Encounters Date Type Department Care Team (Late st Contact Info) Description 10/25/2024 10:15 AM CDT Therapy Visit [facility] [address] [facility] [address] [place] [address] Alysa Chinchilla MD [facility] [facility] [address] [address] Monica Kellogg, PT 909 [place] [address] 11/08/2024 4:30 PM CDT Office Visit [facility] Internal Medicine [address] 4th [place] [phone] Shalom Renteria MD [address] [place] [address] 11/22/2024 10:15 AM CDT Therapy Visit [facility] [address] [facility] [address] [place] [address] Alysa Chinchilla MD [employer] [facility] [address] [address] Monica Kellogg, PT [address] [place] [address] 09/09/2025 2:45 PM CDT Office Visit [facility] [address] [phone] Malini Anderson PA-C [address] [place] [address] 807680 documented as of this encounter Visit Diagnoses Not on filedocumented in this encounter Additional Health Concerns Assessment Noted Time PHQ-9 Depression Total Score: 9 11/28/19 24 12:43 PM CDT documented as of this encounter Care Teams Broomcorn Seeder Relationship Specialty Start Date End Date Shalom Renteria MD [address] [place] [address] PCP - General Internal Medicine 03/03/24 Devika Fleming MD [address] [place] [address] Neurology 10/30/21 Shalom Renteria MD 909 [place] [address] Assigned PCP 12/29/23 Melissa Melvin PA-C [address] [place] [address] Physician Frame Assembler Gastroenterology 03/03/24 Malini Anderson PA-C [address] [place] [address] Physician Frame Assembler 03/03/24 Melissa Melvin PA-C [address] [place] [address] Assigned Gastroenterology Provider 04/29/24 documented as of this encounter
--- OUTSIDE RECORDS SUMMARY | 2024-09-24 15:17 | XMS_ITS | Encounter Summary ---
Author Organization [place] Address [address] [place] [address] Care Team Providers Care Hot Dip Plater Name Role Phone Susie Vogt MD Primary Care Provider Devika Fleming MD Unavailable [phone] Devika Fleming MD Unavailable [phone] Alysa Chinchilla MD Primary Care Provider [phone] Shalom Renteria MD Unavailable Melissa Melvin-Margarita Unavailable Shalom Renteria MD Primary Care Provider [phone] Malini Anderson-C Unavailable [phone] Melissa Melvin PA-C Unavailable Reason for Visit * Reason Onset Date Comments Refill Request 10/12/2020 Encounter Details Date Type Department Care Team (Late st Contact Info) Description 10/12/2020 MyC Refill [facility] [address] [address] Lali Orr MD 909 [facility] 2121 [place] [address] Refill Request Social History Tobacco Use Types Packs/Day Years Used Date Smoking Tobacco: Never Smokeless Tobacco: Never Alcohol Use Standard Drinks/Week Comments Not Currently 0 (1 standard drink = 0.6 oz pur e alcohol) PHQ-2 Answer Date Recorded PHQ-2 Score 2 02/22/2019 Comments Unknown Sex and Gender Information Value Date Recorded Sex Assigned at Female 02/16/2019 10:59 AM SAMMYING MACHINE OPERATOR Legal Sex Female 11:51 AM CDT Gender Identity Female 02/16/2019 10:59 AM SAMMYING MACHINE OPERATOR Sexual Orientation Bisexual 08/08/2023 1: 47 PM CDT documented as of this encounter Plan of Treatment Upcoming Encounters Date Type Department Care Team (Late st Contact Info) Description 10/25/2024 10:15 AM CDT Therapy Visit [address] [address] Alysa Chinchilla MD [employer] [facility] [address] [address] Monica Kellogg, PT [address] [place] [address] 11/08/2024 4:30 PM CDT Office Visit [facility] Internal Medicine [address] [phone] Shalom Renteria MD [address] [place] [address] 11/22/2024 10:15 AM CDT Therapy Visit [address] [address] Alysa Chinchilla MD [employer] [facility] [address] [address] Monica Kellogg, PT [address] [place] [address] 09/09/2025 2:45 PM CDT Office Visit [address] [place] [address] Malini Anderson PA-C [address] [address] documented as of this encounter Visit Diagnoses Diagnosis Chronic tension-type headache, intractable Chronic tension type headache Migraine with aura and without status migrainosus, not intractable Migraine with aura, without mention of intractable migraine without mention of status migrainosus documented in this encounter Care Teams Hot Dip Plater Relationship Specialty Start Date End Date Susie Vogt MD PCP - General respiratory manager 12/29/18 08/07/23 Alysa Chinchilla MD [facility] [address] [place] [address] PCP - General 08/08/23 03/02/24 Shalom Renteria MD [address] [place] [address] PCP - General Internal Medicine 03/03/24 Devika Fleming MD [address] [place] [address] Neurology 10/30/21 Devika Fleming MD [address] [place] [address] Assigned Neuroscience Provider 02/23/22 08/27/23 Shalom Renteria MD [address] [place] [address] Assigned PCP 12/29/23 Melissa Melvin PA-C [address] [place] [address] Physician Machine Operations Supervisor Gastroenterology 03/03/24 Malini Anderson PA-C [address] [place] [address] Physician Machine Operations Supervisor 03/03/24 Melissa Melvin PA-C [address] [place] [address] Assigned Gastroenterology Provider 04/29/24 documented as of this encounter
--- OUTSIDE RECORDS SUMMARY | 2024-09-24 15:17 | XMS_ITS | Encounter Summary ---
Author Organization [facility] Address [address] [place] [address] Care Team Providers Care Laborer Adjustable Steel Joist Name Role Phone Susie Vogt MD Primary Care Provider Devika Fleming MD Unavailable [phone] Devika Fleming MD Unavailable [phone] Alysa Chinchilla MD Primary Care Provider [phone] Shalom Renteria MD Unavailable Melissa Melvin-Margarita Unavailable Shalom Renteria MD Primary Care Provider [phone] Malini Anderson-C Unavailable [phone] Melissa Melvin PA-C Unavailable Reason for Visit * Reason Onset Date Comments Refill Request 10/07/2020 Encounter Details Date Type Department Care Team (Late st Contact Info) Description 10/07/2020 MyC Refill [facility] [address] [address] Lali Orr MD 909 [facility] 2121 [place] [address] Refill Request Social History Tobacco Use Types Packs/Day Years Used Date Smoking Tobacco: Never Smokeless Tobacco: Never Alcohol Use Standard Drinks/Week Comments Not Currently 0 (1 standard drink = 0.6 oz pur e alcohol) PHQ-2 Answer Date Recorded PHQ-2 Score 2 02/22/2019 Comments Unknown Sex and Gender Information Value Date Recorded Sex Assigned at Female 02/16/2019 10:59 AM MEMBERSHIP ADVISOR Legal Sex Female 11:51 AM CDT Gender Identity Female 02/16/2019 10:59 AM MEMBERSHIP ADVISOR Sexual Orientation Bisexual 08/08/2023 1: 47 PM CDT documented as of this encounter Plan of Treatment Upcoming Encounters Date Type Department Care Team (Late st Contact Info) Description 10/25/2024 10:15 AM CDT Therapy Visit [address] [address] Alysa Chinchilla MD [email or web address] [facility] [address] [address] Monica Kellogg, PT [address] [place] [address] 11/08/2024 4:30 PM CDT Office Visit [facility] Internal Medicine [address] [phone] Shalom Renteria MD [address] [place] [address] 11/22/2024 10:15 AM CDT Therapy Visit [address] [address] Alysa Chinchilla MD [email or web address] [facility] [address] [address] Monica Kellogg, PT [address] [place] [address] 09/09/2025 2:45 PM CDT Office Visit [address] [place] [address] Malini Anderson PA-C [address] [address] documented as of this encounter Visit Diagnoses Diagnosis Chronic tension-type headache, intractable Chronic tension type headache Migraine with aura and without status migrainosus, not intractable Migraine with aura, without mention of intractable migraine without mention of status migrainosus documented in this encounter Care Teams Laborer Adjustable Steel Joist Relationship Specialty Start Date End Date Susie Vogt MD PCP - General poultry culler 12/29/18 08/07/[address] [facility] [address] [place] [address] PCP - General 08/08/23 03/02/24 Shalom Renteria MD [address] [place] [address] PCP - General Internal Medicine 03/03/24 Devika Fleming MD [address] [place] [address] Neurology 10/30/21 Devika Fleming MD [address] [place] [address] Assigned Neuroscience Provider 02/23/22 08/27/23 Shalom Renteria MD [address] [place] [address] Assigned PCP 12/29/23 Melissa Melvin PA-C [address] [place] [address] Physician Truck Driver Helper Gastroenterology 03/03/24 Malini Anderson PA-C [address] [place] [address] Physician Truck Driver Helper 03/03/24 Melissa Melvin PA-C [address] [place] [address] Assigned Gastroenterology Provider 04/29/24 documented as of this encounter
--- OUTSIDE RECORDS SUMMARY | 2024-09-24 15:17 | XMS_ITS | Encounter Summary ---
Author Organization [place] Address [address] [place] [address] Care Team Providers Care Cutter Finisher Name Role Phone Susie Vogt MD Primary Care Provider [phone] Devika Fleming MD Unavailable [phone] Devika Fleming MD Unavailable [phone] Alysa Chinchilla MD Primary Care Provider [phone] Shalom Renteria MD Unavailable Melissa Melvin PA-C Unavailable Shalom Renteria MD Primary Care Provider [phone] Malini Anderson PA-C Unavailable [phone] Melissa Melvin PA-C Unavailable Encounter Details Date Type Department Care Team (Late st Contact Info) Description 10/16/2020 [facility] [address] [place] [address] Susi Gloria, RN Social History Tobacco Use Types Packs/Day Years Used Date Smoking Tobacco: Never Smokeless Tobacco: Never Alcohol Use Standard Drinks/Week Comments Not Currently 0 (1 standard drink = 0.6 oz pur e alcohol) PHQ-2 Answer Date Recorded PHQ-2 Score 2 02/22/2019 Comments Unknown Sex and Gender Information Value Date Recorded Sex Assigned at Female 02/16/2019 10:59 AM ASP WEB DEVELOPER Legal Sex Female 11:51 AM CDT Gender Identity Female 02/16/2019 10:59 AM ASP WEB DEVELOPER Sexual Orientation Bisexual 08/08/2023 1: 47 PM CDT documented as of this encounter Plan of Treatment Upcoming Encounters Date Type Department Care Team (Late st Contact Info) Description 10/25/2024 10:15 AM CDT Therapy Visit [address] 140 [place] [address] Alysa Chinchilla MD [employer] [facility] [address] [address] Monica Kellogg, PT [address] [place] [address] 11/08/2024 4:30 PM CDT Office Visit [facility] Internal Medicine [address] 4th [place] [phone] Shalom Renteria MD [address] [place] [address] 11/22/2024 10:15 AM CDT Therapy Visit [address] [address] Alysa Chinchilla MD [employer] [facility] [address] [address] Monica Kellogg, PT [address] [place] [address] 09/09/2025 2:45 PM CDT Office Visit [facility] [address] [phone] Malini Anderson PA-C [address] [place] [address] documented as of this encounter Visit Diagnoses Not on filedocumented in this encounter Care Teams Cutter Finisher Relationship Specialty Start Date End Date Susie Vogt MD PCP - General staff command and control officer 12/29/18 08/07/23 Alysa Chinchilla MD [facility] [address] [place] [address] PCP - General 08/08/23 03/02/24 Shalom Renteria MD [address] [place] [address] PCP - General Internal Medicine 03/03/24 Devika Fleming MD [address] [place] [address] Neurology 10/30/21 Devika Fleming MD [address] [place] [address] Assigned Neuroscience Provider 02/23/22 08/27/23 Shalom Renteria MD [address] [place] [address] Assigned PCP 12/29/23 Melissa Melvin PA-C [address] [place] [address] Physician Sales And Service Change Leader Gastroenterology 03/03/24 Malini Anderson PA-C [address] [address] Physician Sales And Service Change Leader 03/03/24 Melissa Melvin PA-C [address] [place] [address] Assigned Gastroenterology Provider 04/29/24 documented as of this encounter
--- OUTSIDE RECORDS SUMMARY | 2024-09-24 15:17 | XMS_ITS | Encounter Summary ---
Author Organization [place] Address [address] [place] [address] Care Team Providers Care Video Journalist Name Role Phone AjpuneetDevika MD Unavailable [phone] Alysa Chinchilla MD Primary Care Provider [phone] Shalom Renteria MD Unavailable Melissa MelvinC Unavailable Shalom Renteria MD Primary Care Provider [phone] Malini Anderson PA-C Unavailable [phone] Melissa Melvin PA-C Unavailable Encounter Details Date Type Department Care Team (Late st Contact Info) Description 11/28/2023 [facility] Internal Medicine [address] [address] Shalom Renteria MD [address] [place] [address] Social History Tobacco Use Types Packs/Day [...] in an abandoned building, in an overnight chcf, or couch-surfing.) Yes 11/23/2023 Are you worried [...] getting things that you need? No 11/23/2023 Comments No Sex and Gender Information Value Date Recorded Sex Assigned at Female 02/16/2019 10:59 AM IT RECRUITER Legal Sex Female 11:51 AM CDT Gender Identity Female 02/16/2019 10:59 AM IT RECRUITER Sexual Orientation Bisexual 08/08/2023 1: 47 PM CDT documented as of this encounter Plan of Treatment Upcoming Encounters Date Type Department Care Team (Late st Contact Info) Description 10/25/2024 10:15 AM CDT Therapy Visit [facility] [address] [place] [address] Alysa Chinchilla MD [employer] [address] [address] Monica Kellogg, PT [address] [place] [id number] 11/08/2024 4:30 PM CDT Office Visit [facility] Internal Medicine [address] 4[address] [place] [address] Shalom Renteria MD 909 [place] [address] 11/22/2024 10:15 AM CDT Therapy Visit [facility] [address] [facility] [address] [place] [address] Alysa Chinchilla MD [email or web address] [facility] 4700 [place] [address] Monica Kellogg, PT 909 [place] [address] 09/09/2025 2:45 PM CDT Office Visit [address] [phone] Malini Anderson PA-C [address] [place] [address] documented as of this encounter Visit Diagnoses Not on filedocumented in this encounter Additional Health Concerns Assessment Noted Time PHQ-9 Depression Total Score: 9 11/28/19 24 12:43 PM CDT documented as of this encounter Care Teams Video Journalist Relationship Specialty Start Date End Date Alysa Chinchilla MD [employer] [address] [place] [address] PCP - General 08/08/23 03/02/24 Shalom Renteria MD [address] [place] [address] PCP - General Internal Medicine 03/03/24 Devika Fleming MD [address] [place] [address] Neurology 10/30/21 Shalom Renteria MD 909 [place] [address] Assigned PCP 12/29/23 Melissa Melvin PA-C [address] [place] [address] Physician Floorwalker Gastroenterology 03/03/24 Malini Anderson PA-C [address] [address] Physician Floorwalker 03/03/24 Melissa Melvin PA-C [address] [place] [address] Assigned Gastroenterology Provider 04/29/24 documented as of this encounter
--- OUTSIDE RECORDS SUMMARY | 2024-09-24 15:17 | XMS_ITS | Encounter Summary ---
Author Organization [place] Address [address] [place] [address] Care Team Providers Care Resource Specialist Teacher Name Role Phone AjpuneetDevika MD Unavailable [phone] Alysa Chinchilla MD Primary Care Provider [phone] Shalom Renteria MD Unavailable Melissa Melvin-C Unavailable Shalom Renteria MD Primary Care Provider [phone] Malini Anderson-C Unavailable [phone] Melissa Melvin-C Unavailable Encounter Details Date Type Department Care Team (Late st Contact Info) Description 12/29/2023 [facility] [address] [place] [address] [address] [place] [address] Kimberly Suh, PT 2200 [place] [address] Social History Tobacco Use Types Packs/Day Years [...] in an abandoned building, in an overnight longterm, or couch-surfing.) Yes 11/23/2023 Are you worried [...] Sex Assigned at Female 02/16/2019 10:59 AM SLAUGHTERER RELIGIOUS RITUAL Legal Sex Female 11:51 AM CDT Gender Identity Female 02/16/2019 10:59 AM SLAUGHTERER RELIGIOUS RITUAL Sexual Orientation Bisexual 08/08/2023 1: 47 PM CDT documented as of this encounter Plan of Treatment Upcoming Encounters Date Type Department Care Team (Late st Contact Info) Description 10/25/2024 10:15 AM CDT Therapy Visit [facility] [address] [place] [address] Alysa Chinchilla MD [employer] [address] [address] Monica Kellgog, PT [address] [place] [address] 11/08/2024 4:30 PM CDT Office Visit [facility] Internal Medicine [address] 4th [place] [phone] Shalom Renteria MD 909 [place] [address] 11/22/2024 10:15 AM CDT Therapy Visit [facility] 2[address] [facility] [address] [place] [address] Alysa Chinchilla MD [employer] [facility] 4700 [place] [address] Monica Kellogg, PT 909 [place] [address] 09/09/2025 2:45 PM CDT Office Visit [address] [phone] Malini Anderson PA-C [address] [place] [address] documented as of this encounter Visit Diagnoses Not on filedocumented in this encounter Additional Health Concerns Assessment Noted Time PHQ-9 Depression Total Score: 9 11/28/19 24 12:43 PM CDT documented as of this encounter Care Teams Resource Specialist Teacher Relationship Specialty Start Date End Date Alysa Chinchilla MD [employer] [facility] [address] [place] [address] PCP - General 08/08/23 03/02/24 Shlaom Renteria MD [address] [place] [address] PCP - General Internal Medicine 03/03/24 Devika Fleming MD [address] [place] [address] Neurology 10/30/21 Shalom Renteria MD 909 [place] [address] Assigned PCP 12/29/23 Melissa Melvin PA-C [address] [place] [address] Physician New Autos Delivery Driver Gastroenterology 03/03/24 Malini Anderson PA-C [address] [address] Physician New Autos Delivery Driver 03/03/24 Melissa Melvin PA-C [address] [place] [address] Assigned Gastroenterology Provider 04/29/24 documented as of this encounter
--- OUTSIDE RECORDS SUMMARY | 2024-09-24 15:17 | XMS_ITS | Encounter Summary ---
Author Organization [facility] Address [address] [place] [address] Care Team Providers Care Animal Bounty Hunter Name Role Phone AjpuneetDevika MD Unavailable [phone] Shalom Renteria MD Unavailable Melissa Melvin-C Unavailable Shalom Renteria MD Primary Care Provider [phone] Malini Anderson-C Unavailable [phone] Melissa Melvin-C Unavailable Encounter Details Date Type Department Care Team (Late st Contact Info) Description 03/08/2024 [facility] [address] [place] [address] 140 [place] [address] Kimberly Suh, PT 2200 [place] [address] Social History Tobacco Use Types Packs/Day Years [...] in an abandoned building, in an overnight fpc, or couch-surfing.) Yes 11/23/2023 Are you worried [...] Sex Assigned at Female 02/16/2019 10:59 AM HOLISTIC NUTRITIONIST Legal Sex Female 11:51 AM CDT Gender Identity Female 02/16/2019 10:59 AM HOLISTIC NUTRITIONIST Sexual Orientation Bisexual 08/08/2023 1: 47 PM CDT documented as of this encounter Plan of Treatment Upcoming Encounters Date Type Department Care Team (Late st Contact Info) Description 10/25/2024 10:15 AM CDT Therapy Visit [facility] [address] [place] [address] [address] [place], [place] [phone] Alysa Chinchilla MD [employer] [address] [phone] Monica Kellogg, PT 909 [place] [address] 11/08/2024 4:30 PM CDT Office Visit [facility] Internal Medicine [address] 4th [place] [phone] Shalom Renteria MD [address] [place] [address] 11/22/2024 10:15 AM CDT Therapy Visit [facility] [address]200 [facility] [address] [place] [address] Alysa Chinchilla MD [employer] [address] [address] Monica Kellogg, PT [address] [place] [address] 09/09/2025 2:45 PM CDT Office Visit [facility] [address] [phone] Malini Anderson PA-C [address] [place] [address] documented as of this encounter Visit Diagnoses Not on filedocumented in this encounter Additional Health Concerns Assessment Noted Time PHQ-9 Depression Total Score: 9 11/28/19 24 12:43 PM CDT documented as of this encounter Care Teams Animal Bounty Hunter Relationship Specialty Start Date End Date Shalom Renteria MD [address] [place] [address] PCP - General Internal Medicine 03/03/24 Devika Fleming MD [address] [place] [address] Neurology 10/30/21 Shalom Renteria MD 909 [place] [address] Assigned PCP 12/29/23 Melissa Melvin PA-C [address] [place] [address] Physician Cad Administrator Gastroenterology 03/03/24 Malini Anderson PA-C [address] [address] Physician Cad Administrator 03/03/24 Melissa Melvin PA-C [address] [place] [address] Assigned Gastroenterology Provider 04/29/24 documented as of this encounter
--- OUTSIDE RECORDS SUMMARY | 2024-09-24 15:17 | XMS_ITS | Encounter Summary ---
Author Organization [facility] Address [address] [place] [address] Care Team Providers Care Assistant Federal Public Defender Name Role Phone Susie Vogt MD Primary Care Provider Devika Fleming MD Unavailable Devika Fleming MD Unavailable [phone] Devika Fleming MD Unavailable Alysa Chinchilla MD Primary Care Provider Shalom Renteria MD Unavailable Melissa Melvin PA-C Unavailable Shalom Renteria MD Primary Care Provider [phone] Malini Anderson PA-C Unavailable [phone] Melissa Melvin PA-C Unavailable Encounter Details Date Type Department Care Team (Late st Contact Info) Description 06/02/2019 [facility] Medical Advice [facility] Neurology [address] [place] [address] Devika Fleming MD [address] [place] [address] Social History Tobacco Use Types Packs/Day Years Used Date Smoking Tobacco: Never Smokeless Tobacco: Never Alcohol Use Standard Drinks/Week Comments Not Currently 0 (1 standard drink = 0.6 oz pur e alcohol) PHQ-2 Answer Date Recorded PHQ-2 Score 2 02/22/2019 Comments Unknown Sex and Gender Information Value Date Recorded Sex Assigned at Female 02/16/2019 10:59 AM TUFTER OPERATOR Legal Sex Female 11:51 AM CDT Gender Identity Female 02/16/2019 10:59 AM TUFTER OPERATOR Sexual Orientation Bisexual 08/08/2023 1: 47 PM CDT documented as of this encounter Plan of Treatment Upcoming Encounters Date Type Department Care Team (Late st Contact Info) Description 10/25/2024 10:15 AM CDT Therapy Visit [address] [address] Alysa Chinchilla MD [facility] [address] [address] Monica Kellogg, PT [address] [place] [address] 11/08/2024 4:30 PM CDT Office Visit [facility] Internal Medicine [address] [place] [address] Shalom Renteria MD [address] [place] [address] 11/22/2024 10:15 AM CDT Therapy Visit [address] [address] Alysa Chinchilla MD [facility] [address] [address] Monica Kellogg, PT [address] [place] [address] 09/09/2025 2:45 PM CDT Office Visit [address] [place] [phone] Malini Anderson PA-C [address] [address] documented as of this encounter Visit Diagnoses Not on filedocumented in this encounter Care Teams Assistant Federal Public Defender Relationship Specialty Start Date End Date Susie Vogt MD PCP - General deodorizer operator 12/29/18 08/07/23 Alysa Chinchilla MD [facility] [address] [place] [address] PCP - General 08/08/23 03/02/24 Shalom Renteria MD [address] [place] [address] PCP - General Internal Medicine 03/03/24 Devika Fleming MD [address] [place] [address] Assigned Neuroscience Provider 01/28/20 08/26/20 Devika Fleming MD [address] [place] [address] Neurology 10/30/21 Devika Fleming MD [address] [place] [address] Assigned Neuroscience Provider 02/23/22 08/27/23 Shalom Renteria MD [address] [place] [address] Assigned PCP 12/29/23 Melissa Melvin PA-C [address] [place] [address] Physician Tread Cutter Gastroenterology 03/03/24 Malini Anderson PA-C [address] [place] [address] Physician Tread Cutter 03/03/24 Melissa Melvin PA-C [address] [place] [address] Assigned Gastroenterology Provider 04/29/24 documented as of this encounter
--- OUTSIDE RECORDS SUMMARY | 2024-09-24 15:17 | XMS_ITS | Encounter Summary ---
Author Organization [facility] Address [address] [place] [address] Care Team Providers Care Biological Photographer Name Role Phone AjpuneetDevika MD Unavailable [phone] Shalom Renteria MD Unavailable Melissa Melvin PA-C Unavailable Shalom Renteria MD Primary Care Provider [phone] Malini Anderson PA-C Unavailable [phone] Melissa Melvin PA-C Unavailable Encounter Details Date Type Department Care Team (Late st Contact Info) Description 04/15/2024 [facility] [address] [place] [address] [place] Hayden Social History Tobacco Use Types Packs/Day Years [...] in an abandoned building, in an overnight mcfp, or couch-surfing.) Yes 11/23/2023 Are you worried [...] Sex Assigned at Female 02/16/2019 10:59 AM RAILWAY SIGNAL ELECTRICIAN Legal Sex Female 11:51 AM CDT Gender Identity Female 02/16/2019 10:59 AM RAILWAY SIGNAL ELECTRICIAN Sexual Orientation Bisexual 08/08/2023 1: 47 PM CDT documented as of this encounter Plan of Treatment Upcoming Encounters Date Type Department Care Team (Late st Contact Info) Description 10/25/2024 10:15 AM CDT Therapy Visit [facility] [address] [facility] [address] [place] [address] Alysa Chinchilla MD [facility] [address] [address] Monica Kellogg, PT 909 [place] [address] 11/08/2024 4:30 PM CDT Office Visit [facility] Internal Medicine [place] [address] [facility] 4th [place] [phone] Shalom Renteria MD [address] [place] [address] 11/22/2024 10:15 AM CDT Therapy Visit [facility] [address] [facility] [address] [place] [address] Alysa Chinchilla MD [facility] [address] [address] Monica Kellogg, PT [address] [place] [address] 09/09/2025 2:45 PM CDT Office Visit [facility] [address] [phone] Malini Anderson PA-C [address] [place] [phone] documented as of this encounter Visit Diagnoses Not on filedocumented in this encounter Additional Health Concerns Assessment Noted Time PHQ-9 Depression Total Score: 5 04/07/19 25 2:20 PM RAILWAY SIGNAL ELECTRICIAN documented as of this encounter Care Teams Biological Photographer Relationship Specialty Start Date End Date Shalom Renteria MD [address] [place] [address] PCP - General Internal Medicine 03/03/24 Devika Fleming MD [address] [place] [address] Neurology 10/30/21 Shalom Renteria MD 909 [place] [address] Assigned PCP 12/29/23 Melissa Melvin PA-C [address] [place] [address] Physician Community Association Manager Gastroenterology 03/03/24 Malini Anderson PA-C [address] [address] Physician Community Association Manager 03/03/24 Melissa Melvin PA-C [address] [place] [address] Assigned Gastroenterology Provider 04/29/24 documented as of this encounter
--- OUTSIDE RECORDS SUMMARY | 2024-09-24 15:17 | XMS_ITS | Encounter Summary ---
Author Organization [facility] Address [address] [place] [address] Care Team Providers Care Cracker Off Name Role Phone AjpuneetDevika MD Unavailable [phone] Shalom Renteria MD Unavailable Melissa Melvin-C Unavailable Shalom Renteria MD Primary Care Provider [phone] Malini Anderson-C Unavailable [phone] Melissa Melvin-C Unavailable Encounter Details Date Type Department Care Team (Late st Contact Info) Description 03/17/2024 [facility] Internal Medicine [address] [address] Shalom Renteria MD [address] [place] [address] Social History Tobacco Use Types Packs/Day [...] Sex Assigned at Female 02/16/2019 10:59 AM CITIZEN PARTICIPATION SPECIALIST Legal Sex Female 11:51 AM CDT Gender Identity Female 02/16/2019 10:59 AM CITIZEN PARTICIPATION SPECIALIST Sexual Orientation Bisexual 08/08/2023 1: 47 PM CDT documented as of this encounter Plan of Treatment Upcoming Encounters Date Type Department Care Team (Late st Contact Info) Description 10/25/2024 10:15 AM CDT Therapy Visit [facility] [address] [place] [address] [address] [place] [address] Alysa Chinchilla MD [facility] [address] [place] [address] Monica Kellogg, PT 909 [place] [address] 11/08/2024 4:30 PM CDT Office Visit [facility] Internal Medicine [address] 4th [place] [phone] Shalom Renteria MD [address] [place] [address] 11/22/2024 10:15 AM CDT Therapy Visit [facility] [address] [facility] [address] [place] [address] Alysa Chinchilla MD [facility] [address] [address] Monica Kellogg, PT [address] [place] [address] 09/09/2025 2:45 PM CDT Office Visit [facility] [address] [phone] Malini Anderson PA-C [address] [address] documented as of this encounter Visit Diagnoses Not on filedocumented in this encounter Additional Health Concerns Assessment Noted Time PHQ-9 Depression Total Score: 9 11/28/19 24 12:43 PM CDT documented as of this encounter Care Teams Cracker Off Relationship Specialty Start Date End Date Shalom Renteria MD [address] [place] [address] PCP - General Internal Medicine 03/03/24 Devika Fleming MD [address] [place] [address] Neurology 10/30/21 Shalom Renteria MD [address] [place] [address] Assigned PCP 12/29/23 Melissa Melvin PA-C [address] [place] [address] Physician Graduate Assistant Athletic Trainer Gastroenterology 03/03/24 Malini Anderson PA-C [address] [place] [address] Physician Graduate Assistant Athletic Trainer 03/03/24 Melissa Melvin PA-C [address] [place] [address] Assigned Gastroenterology Provider 04/29/24 documented as of this encounter
--- OUTSIDE RECORDS SUMMARY | 2024-09-24 15:17 | XMS_ITS | Clinical Summary ---
Author Organization [facility] Address [address] [place] [address] Care Team Providers Care Hospice Superintendent Name Role Phone AjpuneetDevika MD Unavailable [phone] Shalom Renteria MD Unavailable Melissa Melvin PA-C Unavailable Shalom Renteria MD Primary Care Provider [phone] Malini Anderson PA-C Unavailable [phone] Melissa Melvin PA-C Unavailable Allergies Active Allergy Reactions Criticality Noted Date Comments Adhesive Tape Hives,Itching,Rash Low 02/22/2019 Amoxicillin-Pot Clavulanate Diarrhea,GI Disturbance,Nausea and Vomiting 12/03/2007 Buspirone Rash Low 08/30/2014 Liquid Adhesive Rash Low 10/06/2018 Loratadine Anxiety,Dizziness,Nausea Low 02/22/2019 Loratadine Anxiety Low 08/07/2006 Medications vitamin B-2 (RIBOFLAVIN) 100 MG TABS tablet Take 100 mg by mouth daily. Active Quercetin 500 MG CAPS Take 500 mg by mouth daily. Active predniSONE (DELTASONE) 20 MG tablet Take 40 mg by mouth daily. For 3 days as needed 09/16/19 24 Active norethindrone (MICRONOR) 0.35 MG tablet Take 1 tablet by mouth daily at 2 pm. 10/28/19 24 Active magnesium oxide (MAG-OX) 400 MG tablet Take 400 mg by mouth daily. Active fludrocortisone (FLORINEF) 0.1 MG tablet Take 0.2 mg by mouth daily. 05/28/19 24 Active cromolyn (GASTROCROM) 100 MG/5ML (HIGH CONC) solution MIX 5-10 ML IN WATER AND DRINK BEFORE EACH MEAL AND AT BEDTIME 11/11/19 Active cloNIDine (CATAPRES) 0.2 MG tablet TAKE ONE-HALF TO ONE TABLET BY MOUTH AT BEDTIME 10/10/19 24 Active vitamin D3 (CHOLECALCIFERO L) 125 MCG (5000 UT) tablet Take 5,000 Units by mouth daily. Active aspirin (ASA) 81 MG chewable tablet Take 81 mg by mouth daily. Active cimetidine 200 MG tablet Take 200 mg by mouth 2 times daily. 05/05/19 24 Active cetirizine (ZYRTEC) 10 MG tablet Take 10 mg by mouth 3 times daily. 05/05/19 24 Active ondansetron (ZOFRAN ODT) 4 MG ODT tabIndications: Nausea Take 1 tablet (4 mg) by mouth every 8 hours as needed for nausea. 30 tablet 3 11/28/19 24 Active NALTREXONE HCL, PAIN, PO Take 6.5 mg by mouth daily. Active tirzepatide-Michael ght Management (ZEPBOUND) 2.5 MG/0.5ML prefilled penIndications: Obesity (BMI 30-39.9) Inject 0.5 mLs (2.5 mg) subcutaneously every 7 days. 2 mL 02/28/20 24 Active tirzepatide-Michael ght Management (ZEPBOUND) 5 MG/0.5ML prefilled penIndications: Obesity (BMI 30-39.9) Inject 0.5 mLs (5 mg) subcutaneously every 7 days. 2 mL 03/27/20 24 Active tirzepatide-Michael ght Management (ZEPBOUND) 7.5 MG/0.5ML prefilled penIndications: Obesity (BMI 30-39.9) Inject 0.5 mLs (7.5 mg) subcutaneously every 7 days. 2 mL 04/24/19 25 Active ketoconazole (NIZORAL) 2 % external shampooIndicati ons:Dermatitis, seborrheic Use every 1-2 days when flared. Leave on for 5 minutes before rinsing. Use 1-3 times weekly for maintenance. 120 mL 11 09/09/19 25 Active fluocinonide (LIDEX) 0.05 % external solutionIndicat ions:Dermatitis , seborrheic Apply topically 2 times daily. Apply to the affected areas on the scalp twice daily as needed during flares. Do not use greater than 2 weeks at a time. Do not apply to face or skin folds. 60 mL 3 09/09/19 25 Active tretinoin (RETIN-A) 0.025 % external creamIndication s:Sebaceous hyperplasia Use pea sized amount nightly to face. 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 Seeing Dr. Vogt. Major depressive disorder, recurrent, in full re mission 11/09/2014 Allergic rhinitis 02/25/2008 Encounters Date Type Department Care Team Description 09/08/2024 2:00 PM CDT Office Visit [address] [address] Shalom Renteria MD Pritchard, Katelyn, PA-C Dermatitis, seborrheic (Primary Dx); Skin cancer screening; Sebaceous hyperplasia; Seborrheic keratosis; Napier angioma; Multiple nevi; Lentigo; Dermatofibroma; Hx of atypical nevus 09/08/2024 Travel 09/03/2024 Travel 08/23/2024 Transcribe Orders GENERIC EXTERNAL DATA DEPARTMENT Alysa Chinchilla MD Classical Chase-Danlos syndrome (Primary Dx) 08/09/2024 10:15 AM CDT Therapy Visit [facility] [address] [place] [address] [address] [place] [address] Alysa Chinchilla MD Gerardi, Monica Ni, PT Chase-Danlos syndrome (Primary Dx) 08/09/2024 Travel 08/06/2024 Travel from Last 3 Months Immunizations Immunization Administration Dates Next Due COVID-19 MONOVALENT 12+ (Pfizer) 02/22/2021 COVID-19 Monovalent 12+ (Pfizer 2021) 02/22/2021 COVID-19 Monovalent 18+ (Moderna) 06/29/2020, Flu, Unspecified 02/15/2020 Hepatitis B, Peds (Engerix-B/Recombivax HB) 02/13/1999,08/08/1998,07/07/1998 Influenza Vaccine >6 months,quad, PF ,02/05/2022,02/14/2021,02/20,02/24/2019,02/23/2018 MMR (MMRII) 07/27/1996 Meningococcal ACWY (Menactra ) 02/10/2003 TDAP (Adacel,Boostrix) 07/15/2018,03/08/2011 Td (Adult), Adsorbed 07/27/1996 Family History Medical History Relation Comments Breast Cancer Maternal Grandmother Hyperlipidemia Maternal Grandmother Depression Mother Hypertension Mother Relation Status Comments Maternal Grandmother Mother Social History Tobacco Use Types Packs/Day Years Used Date Smoking Tobacco: Never Smokeless Tobacco: Never Tobacco Cessation:Counseling Given: Not Answered Alcohol Use Standard Drinks/Week Comments Not Currently [...] in an abandoned building, in an overnight mcc, or couch-surfing.) Yes 11/23/2023 Are you worried [...] Sex Assigned at Female 02/16/2019 10:59 AM PREPARATION SUPERVISOR FREEZING Legal Sex Female 11:51 AM CDT Gender Identity Female 02/16/2019 10:59 AM PREPARATION SUPERVISOR FREEZING Sexual Orientation Bisexual 08/08/2023 1: 47 PM CDT Last Filed Vital Signs Vital Sign Reading Time Taken Comments Blood Pressure 153/103 04/06/2024 2:40 PM PREPARATION SUPERVISOR FREEZING Pulse 100 04/06/2024 2:40 PM PREPARATION SUPERVISOR FREEZING Temperature 36.6 C (97.9 F) 02/28/2024 10:50 AM PREPARATION SUPERVISOR FREEZING Respiratory Rate 18 02/28/2024 10:50 AM PREPARATION SUPERVISOR FREEZING Oxygen Saturation 99% 04/06/2024 2:04 PM PREPARATION SUPERVISOR FREEZING Inhaled Oxygen Concentration - - Weight 109.8 kg (242 lb) 04/06/2024 2:04 PM PREPARATION SUPERVISOR FREEZING Height 170.2 cm (5' 7.01) 02/28/2024 10:[address] Body Mass Index 37.89 02/28/2024 10:50 AM PREPARATION SUPERVISOR FREEZING Plan of Treatment Upcoming Encounters Date Type Department Care Team (Late st Contact Info) Description 10/25/2024 10:15 AM CDT Therapy Visit [address] [place] [address] Alysa Chinchilla MD [facility] [address] [address] Monica Kellogg, PT [address] [place] [address] 11/08/2024 4:30 PM CDT Office Visit [facility] Internal Medicine [address] 4th [place] [phone] Shalom Renteria MD [address] [place] [address] 11/22/2024 10:15 AM CDT Therapy Visit [address] [address] Alysa Chinchilla MD [facility] [address] [address] Monica Kellogg, PT [address] [place] [address] 09/09/2025 2:45 PM CDT Office Visit [facility] [address] [phone] Malini Anderson PA-C [address] [place] [address] Health Maintenance Due Date Last Done Comments ADVANCE CARE PLANNING 1984 DEPRESSION ACTION PLAN 1984 MAMMO SCREENING 1984 YEARLY PREVENTIVE VISIT 1987 PNEUMOCOCCAL VACCINE: PEDIATRICS (0 to 5 YEARS) AND AT-RISK PATIENTS (6 to 49 YEARS) (1 of 2 - PCV) 2003 COVID-19 VACCINE (5 - season) 2023 02/22/2021, 02/22/2021, 06/29/2020, Additional history exists PHQ-9 10/06/2024 04/08/2024, 11/28/2023 ANNUAL REVIEW OF HM ORDERS 11/27/2024 11/28/2023 INFLUENZA VACCINE (Season Ended) 2024 01/27/2023, 02/05/2022, 02/14/2021, Additional history exists LIPID 02/27/2025 02/28/2024, 05/23/2023 PAP 12/06/2025 12/06/2022, 10/15/2019 DIABETES SCREENING 04/06/2027 04/06/2024, 1 , 05/23/2023 DTAP/TDAP/TD VACCINE (4 - Td or Tdap) 07/15/2028 07/15/2018, 03/08/2011, 07/27/1996 ZOSTER VACCINE (1 of 2) 2034 HEPATITIS B VACCINE Completed 02/13/1999, 08/08/1998, 07/07/1998 MENINGITIS VACCINE Completed 02/10/2003 HEPATITIS C SCREENING Discontinued HIV SCREENING Discontinued HPV VACCINE Aged Out No longer eligi ble based on patient's age to complete this topic Procedures Procedure Name Priority Date/Time Associated Diagnosis Comments COMPREHENSIVE METABOLIC PANEL Routine 04/06/2024 2:50 PM PREPARATION SUPERVISOR FREEZING Abdominal pain, unspecified abdominal location Loose stools LIPID REFLEX TO DIRECT LDL PANEL Routine 02/28/2024 9:16 AM PREPARATION SUPERVISOR FREEZING Dyslipidemia PAP SMEAR - HIM PATIENT REPORTED Routine 12/06/2022 from Last 3 Months or Most Recently Relevant to Health Maintenance Results * (ABNORMAL) Comprehensive metabolic panel (BMP + Alb, Alk Phos, ALT, AST, Total. Bili, TP) (04/06/2024 2:50 PM PREPARATION SUPERVISOR FREEZING) Sodium 143 135 - 145 mmol/L 04/06/2024 3:14 PM PREPARATION SUPERVISOR FREEZING [facility] Potassium 4.0 3.4 - 5.3 mmol/L 04/06/2024 3:14 PM PREPARATION SUPERVISOR FREEZING [facility] Carbon Dioxide (CO2) 26 22 - 29 mmol/L 04/06/2024 3:14 PM PREPARATION SUPERVISOR FREEZING [facility] Anion Gap 12 7 - 15 mmol/L 04/06/2024 3:14 PM PREPARATION SUPERVISOR FREEZING [facility] Urea Nitrogen 10.4 6.0 - 20.0 mg/dL 04/06/2024 3:14 PM PREPARATION SUPERVISOR FREEZING [facility] Creatinine 0.86 0.51 - 0.95 mg/dL 04/06/2024 3:14 PM PREPARATION SUPERVISOR FREEZING [facility] GFR Estimate 88 >60 mL/min/1.7 3m2 04/06/2024 3:14 PM PREPARATION SUPERVISOR FREEZING [facility] Comment:eGFR calculated us2020 CKD-EPI equation. Calcium 8.9 8.8 - 10.4 mg/dL 04/06/2024 3:14 PM PREPARATION SUPERVISOR FREEZING [facility] Comment:Reference intervals for this test were updated on 10/21/2023 to reflect our healthy population more accurately. There may be differences in the flagging of prior results with similar values performed with this method. Those prior results can be interpreted in the context of the updated reference intervals. Chloride 105 98 - 107 mmol/L 04/06/2024 3:14 PM PREPARATION SUPERVISOR FREEZING [facility] Glucose 115(H) 70 - 99 mg/dL 04/06/2024 3:14 PM PREPARATION SUPERVISOR FREEZING [facility] Alkaline Phosphatase 99 40 - 150 U/L 04/06/2024 3:14 PM PREPARATION SUPERVISOR FREEZING [facility] AST 33 0 - 45 U/L 04/06/2024 3:14 PM PREPARATION SUPERVISOR FREEZING [facility] ALT 45 0 - 50 U/L 04/06/2024 3:14 PM PREPARATION SUPERVISOR FREEZING [facility] Protein Total 7.3 6.4 - 8.3 g/dL 04/06/2024 3:14 PM PREPARATION SUPERVISOR FREEZING [facility] Albumin 4.3 3.5 - 5.2 g/dL 04/06/2024 3:14 PM PREPARATION SUPERVISOR FREEZING [facility] Bilirubin Total 0.4 <=1.2 mg/dL 04/06/2024 3:14 PM PREPARATION SUPERVISOR FREEZING [facility] Blood STRUCTURE OF LEFT UPPER LIMB / Unknown Venipuncture / Unknown 04/06/2024 2:50 PM PREPARATION SUPERVISOR FREEZING 04/06/2024 2:53 PM PREPARATION SUPERVISOR FREEZING us Melissa Melvin PA-C LAB - BLOOD ORDERABLES Final Res ult LABORATORY [facility] [place] [address] [place] [address] Lab, [facility] [place] [address], [facility] * (ABNORMAL) Lipid panel reflex to direct LDL Non-fasting (02/28/2024 9:16 AM PREPARATION SUPERVISOR FREEZING) Cholesterol 234(H) <200 mg/dL 02/28/2024 9:52 AM PREPARATION SUPERVISOR FREEZING [facility] - CORE LAB Triglycerides 272(H) <150 mg/dL 02/28/2024 9:52 AM [facility] - [facility] Direct Measure HDL 31(L) >=50 mg/dL 02/28/2024 9:52 AM [facility] LDL Cholesterol Calculated 149(H) <100 mg/dL 02/28/2024 9:52 AM [facility] Non HDL Cholesterol 203(H) <130 mg/dL 02/28/2024 9:52 AM [facility] Patient Fasting > 8hrs? Yes 02/28/2024 9:52 AM [facility] Blood STRUCTURE OF LEFT UPPER LIMB / Unknown Venipuncture / Unknown 02/28/2024 9:16 AM PREPARATION SUPERVISOR FREEZING 02/28/2024 9:17 AM PREPARATION SUPERVISOR FREEZING Narrative [facility] - CORE LAB - 02/28/2024 9:52 AM PREPARATION SUPERVISOR FREEZING Cholesterol Desirable: < 200 mg/dL Borderline High: 200 - 239 mg/dL High: >= 240 mg/dL Triglycerides Normal: < 150 mg/dL Borderline High: 150 - 199 mg/dL High: 200-499 mg/dL Very High: >= 500 mg/dL Direct Measure HDL Female: >= 50 mg/dL Male: >= 40 mg/dL LDL Cholesterol Desirable: < 100 mg/dL Above Desirable: 100 - 129 mg/dL Borderline High: 130 - 159 mg/dL High: 160 - 189 mg/dL Very High: >= 190 mg/dL Non HDL Cholesterol Desirable: < 130 mg/dL Above Desirable: 130 - 159 mg/dL Borderline High: 160 - 189 mg/dL High: 190 - 219 mg/dL Very High: >= 220 mg/dL Shalom Renteria MD LAB - BLOOD ORDERABLES Final Res ult [facility] - CORE LAB [facility] - [address] 1st [place] [address] * PAP Smear - HIM Patient Reported (12/06/2022) PAP Smear - HIM Patient Reported Unknown EXTERNAL LAB 12/06/2022 Narrative EXTERNAL LAB - 12/06/2022 SEE ENCOUNTER DATED 11/28/23 us Patient Reported LABORATORY Final Result EXTERNAL LAB External Lab from Last 3 Months or Most Recently Relevant to Health Maintenance Insurance BCBS OUT OF STATE BCBS OUT OF STATE Care Teams Hospice Superintendent Relationship Specialty Start Date End Date Shalom Renteria MD [address] [place] [address] PCP - General Internal Medicine 03/03/24 Devika Fleming MD [address] [place] [address] Neurology 10/30/21 Shalom Renteria MD [address] [place] [address] Assigned PCP 12/29/23 Melissa Melvin PA-C [address] [place] [address] Physician Team Otr Truck Driver Gastroenterology 03/03/24 Malini Anderson PA-C [address] [place] [address] Physician Team Otr Truck Driver 03/03/24 Melissa Melvin PA-C [address] [facility] [place] [address] Assigned Gastroenterology Provider 04/29/24
--- OUTSIDE RECORDS SUMMARY | 2024-09-24 15:17 | XMS_ITS | Clinical Summary ---
Author Organization [facility] Address [address] [place] [address] Care Team Providers Care Dog Food Dough Mixer Name Role Phone No Primary/Referring, Phy Primary Care Provider Unavailable Source Comments You are receiving this document as you are listed as the primary care provider,follow-up provider, or the patient has been referred to you for consultation.This is in compliance with the Medicare and[facility] EHR Incentive Program,which states Providers who transition their patient to another setting of careor provider of care or refers their patient to another provider of care shouldprovide summary care record for each transition of care or referral. [facility] Allergies Active Allergy Reactions Criticality Noted Date Comments Amoxicillin-Pot Clavulanate Nausea And Vomiting 03/11/2016 Loratadine Other, see comments 03/11/2016 Hallucinations and panic attack Medications cefuroxime (CEFTIN) 500 MG tabletIndications:O ther acute nonsuppurative otitis media of right ear, recurrence not specified Take 1 Tab by mouth two times a day. 20 Tab 0 6 Active Active Problems No known active problems Family History Medical History Relation Name Comments Depression Mother Cancer, Ovary Maternal Grandmother Relation Name Status Comments Mother Maternal Grandmother Social History Tobacco Use Types Packs/Day Years Used Date Smoking Tobacco: Never Comments No Sex and Gender Information Value Date Recorded Sex Assigned at Not on file Legal Sex Female 1:08 PM CDT Gender Identity Not on file Sexual Orientation Not on file Last Filed Vital Signs Vital Sign Reading Time Taken Comments Blood Pressure 115/90 03/11/2016 8:45 PM PANEL INSTRUMENT REPAIRER Pulse 87 03/11/2016 8:45 PM PANEL INSTRUMENT REPAIRER Temperature 36.4 C (97.5 F) 03/11/2016 8:44 PM PANEL INSTRUMENT REPAIRER Respiratory Rate 22 03/11/2016 8:44 PM PANEL INSTRUMENT REPAIRER Oxygen Saturation 96% 03/11/2016 8:44 PM PANEL INSTRUMENT REPAIRER Inhaled Oxygen Concentration - - Weight 107 kg (236 lb) 03/11/2016 8:44 PM PANEL INSTRUMENT REPAIRER Height 168.9 cm (5' 6.5) 03/11/2016 8:44 PM PANEL INSTRUMENT REPAIRER Body Mass Index 37.52 03/11/2016 8:44 PM PANEL INSTRUMENT REPAIRER Plan of Treatment Health Maintenance Due Date Last Done Comments Cervical Cancer Screening Due 1984 Hep C Screening (Preventive Services) 1984 Mammogram 1984 HIV Screening (Preventive Services) 2000 Adult Preventive Visit 2002 DTaP/Tdap/Td Vaccine (1 - Tdap) 2003 HepB Vaccine (1) 2003 COVID-19 Vaccine (1 - 2023-2 5 season) 2023 Influenza Vaccine (Season Ended) 2024 04/07/19 19 Zoster/Shingles Vaccine (1 of 2) 2034 HPV Vaccine Aged Out No longer eligi ble based on patient's age to complete this topic HepA Vaccine Aged Out No longer eligi ble based on patient's age to complete this topic Hib Vaccine Aged Out No longer eligi ble based on patient's age to complete this topic IPV (Polio) Vaccine Aged Out No longe r eligible based on patient's age to complete this topic MCV4 Vaccine Aged Out No longer eligi ble based on patient's age to complete this topic Meningococcal B Vaccine Aged Out No l onger eligible based on patient's age to complete this topic Pneumococcal Vaccine Aged Out No long er eligible based on patient's age to complete this topic Insurance SELF INSURED Care Teams Dog Food Dough Mixer Relationship Specialty Start Date End Date No Primary/Referring, Phy PCP - General 03/11/16
--- OUTSIDE RECORDS SUMMARY | 2024-09-24 15:17 | XMS_ITS | Encounter Summary ---
Author Organization [facility] Address [address] [place] [address] Care Team Providers Care Visual Aid Expert Name Role Phone Susie Vogt MD Primary Care Provider Devika Fleming MD Unavailable Devika Fleming MD Unavailable [phone] Devika Fleming MD Unavailable Alysa Chinchilla MD Primary Care Provider [phone] Shalom Renteria MD Unavailable Melissa Melvin PA-C Unavailable Shalom Renteria MD Primary Care Provider [phone] Malini Anderson PA-C Unavailable [phone] Melissa Melvin PA-C Unavailable Reason for Visit * Reason Onset Date Comments Refill Request 04/07/2020 Encounter Details Date Type Department Care Team (Late st Contact Info) Description 04/07/2020 [facility] [address] [address] Lali Orr MD [address] [place] [address] [address] [place] [address] Refill Request Social History Tobacco Use Types Packs/Day Years Used Date Smoking Tobacco: Never Smokeless Tobacco: Never Alcohol Use Standard Drinks/Week Comments Not Currently 0 (1 standard drink = 0.6 oz pur e alcohol) PHQ-2 Answer Date Recorded PHQ-2 Score 2 02/22/2019 Comments Unknown Sex and Gender Information Value Date Recorded Sex Assigned at Female 02/16/2019 10:59 AM SPINNING MULE OPERATOR Legal Sex Female 11:51 AM CDT Gender Identity Female 02/16/2019 10:59 AM SPINNING MULE OPERATOR Sexual Orientation Bisexual 08/08/2023 1: 47 PM CDT documented as of this encounter Miscellaneous Notes * Telephone Encounter - Jo Parson CMA - 04/10/2020 8:53 AM SPINNING MULE OPERATOR Rx Authorization: ??? Requested Medication/ Dose: Nortriptyline 10MG caps ??? Date last refill ordered: 02/21/20 ??? Quantity ordered: 90 caps ??? # refills: ??? Date of last clinic visit with ordering provider: 02/22/19 ??? Date of next clinic visit with ordering provider: F/U 1 year ??? All pertinent protocol data (lab date/result): ??? Include pertinent information from patients message: NING MULE OPERATOR documented in this encounter Plan of Treatment Upcoming Encounters Date Type Department Care Team (Late st Contact Info) Description 10/25/2024 10:15 AM CDT Therapy Visit [facility] [address] [place] [address] Alysa Chinchilla MD [facility] [address] [address] Monica Kellogg, PT [address] [place] [address] 11/08/2024 4:30 PM CDT Office Visit [facility] [place] 909 [facility] 4th [place] [phone] Shalom Renteria MD 909 [place] [address] 11/22/2024 10:15 AM CDT Therapy Visit [facility] 2[address] [facility] [address] [place] [address] Alysa Chinchilla MD [facility] [address] [place] [address] Monica Kellogg, PT 909 [place] [address] 09/09/2025 2:45 PM CDT Office Visit [address] [phone] Malini Anderson PA-C [address] [place] [address] documented as of this encounter Visit Diagnoses Diagnosis Chronic tension-type headache, intractable Chronic tension type headache Migraine with aura and without status migrainosus, not intractable Migraine with aura, without mention of intractable migraine without mention of status migrainosus documented in this encounter Care Teams Visual Aid Expert Relationship Specialty Start Date End Date Susie Vogt MD PCP - General laser printing operator 12/29/18 08/07/23 Alysa Chinchilla MD [facility] [address] [place] [address] PCP - General 08/08/23 03/02/24 Shalom Renteria MD [address] [place] [address] PCP - General Internal Medicine 03/03/24 Devika Fleimng MD [address] [place] [address] Assigned Neuroscience Provider 01/28/20 08/26/20 Devika Fleming MD [address] [place] [address] MD Neurology 10/30/21 Devika Fleming MD [address] [place] [address] Assigned Neuroscience Provider 02/23/22 08/27/23 Shalom Renteria MD [address] [place] [address] Assigned PCP 12/29/23 Melissa Melvin PA-C [address] [place] [address] Physician Music Assistant Gastroenterology 03/03/24 Malini Anderson PA-C [address], [place] [address] Physician Music Assistant 03/03/24 Melissa Melvin PA-C [address] [place] [address] Assigned Gastroenterology Provider 04/29/24 documented as of this encounter
--- OUTSIDE RECORDS SUMMARY | 2024-09-24 15:17 | XMS_ITS | Encounter Summary ---
Author Organization [facility] Address [address] [place] [address] Care Team Providers Care Skein Winding Operator Name Role Phone Susie Vogt MD Primary Care Provider Devika Fleming MD Unavailable [phone] Devika Fleming MD Unavailable [phone] Alysa Chinchilla MD Primary Care Provider Shalom Renteria MD Unavailable Melissa Melvin-C Unavailable Shalom Renteria MD Primary Care Provider [phone] Malini Anderson-C Unavailable [phone] Melissa Melvin-C Unavailable Encounter Details Date Type Department Care Team (Late st Contact Info) Description 04/24/2022 [facility] [address] 3rd [place] [address] Devika Fleming MD [address] [place] [address] Social History Tobacco Use Types Packs/Day Years Used Date Smoking Tobacco: Never Smokeless Tobacco: Never Alcohol Use Standard Drinks/Week Comments Not Currently 0 (1 standard drink = 0.6 oz pur e alcohol) PHQ-2 Answer Date Recorded PHQ-2 Score 2 02/18/2022 Comments Unknown Sex and Gender Information Value Date Recorded Sex Assigned at Female 02/16/2019 10:59 AM LOAN ASSISTANT Legal Sex Female 11:51 AM CDT Gender Identity Female 02/16/2019 10:59 AM LOAN ASSISTANT Sexual Orientation Bisexual 08/08/2023 1: 47 PM CDT documented as of this encounter Plan of Treatment Upcoming Encounters Date Type Department Care Team (Late st Contact Info) Description 10/25/2024 10:15 AM CDT Therapy Visit [address] [address] Alysa Chinchilla MD [facility] [address] [address] Monica Kellogg, PT [address] [place] [address] 11/08/2024 4:30 PM CDT Office Visit [facility] Internal Medicine [address] 4th [place] [phone] Shalom Renteria MD [address] [place] [address] 11/22/2024 10:15 AM CDT Therapy Visit [address] [address] Alysa Chinchilla MD [facility] [address] [address] Monica Kellogg, PT [address] [place] [address] 09/09/2025 2:45 PM CDT Office Visit [address] [phone] Malini Anderson PA-C [address] [place] [address] documented as of this encounter Visit Diagnoses Not on filedocumented in this encounter Care Teams Skein Winding Operator Relationship Specialty Start Date End Date Susie Vogt MD PCP - General drilling machine runner 12/29/18 08/07/23 Alysa Chinchilla MD [facility] [address] [place] [address] PCP - General 08/08/23 03/02/24 Shalom Renteria MD [address] [place] [address] PCP - General Internal Medicine 03/03/24 Devika Fleming MD [address] [place] [address] Neurology 10/30/21 Devika Fleming MD [address] [place] [address] Assigned Neuroscience Provider 02/23/22 08/27/23 Shalom Renteria MD [address] [place] [address] Assigned PCP 12/29/23 Melissa Melvin PA-C [address] [place] [address] Physician Restaurant District Manager Gastroenterology 03/03/24 Malini Anderson PA-C [address] [place] [address] Physician Restaurant District Manager 03/03/24 Melissa Melvin PA-C [address] [place] [address] Assigned Gastroenterology Provider 04/29/24 documented as of this encounter
--- OUTSIDE RECORDS SUMMARY | 2024-09-24 15:17 | XMS_ITS | Encounter Summary ---
Author Organization [facility] Address [address] [place] [address] Care Team Providers Care Melangeur Operator Name Role Phone Susie Vogt MD Primary Care Provider Devika Fleming MD Unavailable [phone] Devika Fleming MD Unavailable [phone] Alysa Chinchilla MD Primary Care Provider [phone] Shalom Renteria MD Unavailable Melissa Melvin PA-C Unavailable Shalom Renteria MD Primary Care Provider [phone] Malini Anderson PA-C Unavailable [phone] Melissa Melvin PA-C Unavailable Encounter Details Date [...] Sex Assigned at Female 02/16/2019 10:59 AM PE MANAGER Legal Sex Female 11:51 AM CDT Gender Identity Female 02/16/2019 10:59 AM PE MANAGER Sexual Orientation Bisexual 08/08/2023 1: 47 PM CDT documented as of this encounter Plan of Treatment Upcoming Encounters Date Type Department Care Team (Late st Contact Info) Description 10/25/2024 10:15 AM CDT Therapy Visit [address] [place] [address] Alysa Chinchilla MD [facility] [address] [address] Monica Kellogg, PT [address] [place] [address] 11/08/2024 4:30 PM CDT Office Visit [facility] Internal Medicine [address] 4th [place] [phone] Shalom Renteria MD [address] [place] [address] 11/22/2024 10:15 AM CDT Therapy Visit [address] [place] [address] Alysa Chinchilla MD [facility] [address] [address] Monica Kellogg, PT [address] [place] [address] 09/09/2025 2:45 PM CDT Office Visit [facility] [address] [phone] Malini Anderson PA-C [address] [place] [address] documented as of this encounter Visit Diagnoses Not on filedocumented in this encounter Care Teams Melangeur Operator Relationship Specialty Start Date End Date Susie Vogt MD PCP - General diesel automotive technician 12/29/18 08/07/23 Alysa Chinchilla MD [facility] [address] [place] [address] PCP - General 08/08/23 03/02/24 Shalom Renteria MD [address] [place] [address] PCP - General Internal Medicine 03/03/24 Devika Fleming MD [address] [place] [address] Neurology 10/30/21 Devika Fleming MD [address] [place] [address] Assigned Neuroscience Provider 02/23/22 08/27/23 Shalom Renteria MD [address] [place] [address] Assigned PCP 12/29/23 Melissa Melvin PA-C [address] [address], [place] [address] Physician Wire Fence Builder Gastroenterology 03/03/24 Malini Anderson PA-C [address] [place] [address] Physician Wire Fence Builder 03/03/24 Melissa Melvin PA-C [address] [place] [address] Assigned Gastroenterology Provider 04/29/24 documented as of this encounter
--- OUTSIDE RECORDS SUMMARY | 2024-09-24 15:17 | XMS_ITS | Encounter Summary ---
Author Organization [facility] Address [address] [place] [address] Care Team Providers Care Reading Assistant Name Role Phone Susie Vogt MD Primary Care Provider Devika Fleming MD Unavailable [phone] Devika Fleming MD Unavailable [phone] Alysa Chinchilla MD Primary Care Provider [phone] Shalom Renteria MD Unavailable Melissa Melvin-C Unavailable Shalom Renteria MD Primary Care Provider [phone] Malini Anderson-C Unavailable [phone] Melissa Melvin-C Unavailable Encounter Details Date Type Department Care Team (Late st Contact Info) Description 04/10/2022 [facility] [address] 3rd [place] [address] Devika Fleming MD [address] [place] [address] Social History Tobacco Use Types Packs/Day Years Used Date Smoking Tobacco: Never Smokeless Tobacco: Never Alcohol Use Standard Drinks/Week Comments Not Currently 0 (1 standard drink = 0.6 oz pur e alcohol) PHQ-2 Answer Date Recorded PHQ-2 Score 2 02/18/2022 Comments Unknown Sex and Gender Information Value Date Recorded Sex Assigned at Female 02/16/2019 10:59 AM DISABILITY ADVOCATE Legal Sex Female 11:51 AM CDT Gender Identity Female 02/16/2019 10:59 AM DISABILITY ADVOCATE Sexual Orientation Bisexual 08/08/2023 1: 47 PM CDT documented as of this encounter Plan of Treatment Upcoming Encounters Date Type Department Care Team (Late st Contact Info) Description 10/25/2024 10:15 AM CDT Therapy Visit [address] [address] Alysa Chinchilla MD [facility] [address] [address] Monica Kellogg, PT [address] [place] [address] 11/08/2024 4:30 PM CDT Office Visit [facility] Internal Medicine [address] 4th [place] [phone] Shalom Renteria MD [address] [place] [address] 11/22/2024 10:15 AM CDT Therapy Visit [address] [address] Alysa Chinchilla MD [employer] [facility] [address] [address] Monica Kellogg, PT [address] [place] [address] 09/09/2025 2:45 PM CDT Office Visit [address] [phone] Malini Anderson PA-C [address] [place] [address] documented as of this encounter Visit Diagnoses Not on filedocumented in this encounter Care Teams Reading Assistant Relationship Specialty Start Date End Date Susie Vogt MD PCP - General visual training aide 12/29/18 08/07/23 Alysa Chinchilla MD [facility] [address] [place] [address] PCP - General 08/08/23 03/02/24 Shalom Renteria MD [address] [place] [address] PCP - General Internal Medicine 03/03/24 Devika Fleming MD [address] [place] [address] Neurology 10/30/21 Devika Fleming MD [address] [place] [address] Assigned Neuroscience Provider 02/23/22 08/27/23 Shalom Renteria MD [address] [place] [address] Assigned PCP 12/29/23 Melissa Melvin PA-C [address] [place] [address] Physician Diabetic Educator Gastroenterology 03/03/24 Malini Anderson PA-C [address] [place] [address] Physician Diabetic Educator 03/03/24 Melissa Melvin PA-C [address] [place] [address] Assigned Gastroenterology Provider 04/29/24 documented as of this encounter
--- OUTSIDE RECORDS SUMMARY | 2024-09-24 15:17 | XMS_ITS | Clinical Summary ---
Author Organization [facility] Address [address] [place] [address] Care Team Providers Care Pediatric Pathologist Name Role Phone Janet Jones MD Primary Care Prov ider Allergies Active Allergy Reactions Criticality Noted Date Comments Adhesive Rash 01/27/2023 Amoxicillin-Pot Clavulanate Vomiting 12/03/19 08 Buspirone Hcl Rash 08/30/2014 Loratadine Anxiety 08/07/2006 Medications cetirizine (ZYRTEC) 10 mg tablet Take 1 [...] migrainosus 02/18/2022 PCOS (polycystic ovarian syndrome) 06/07/2016 Overview (06/07/2016): On metformin, trying to conceive. Seeing Dr. Vogt. Major depressive disorder, recurrent, in full re mission 11/09/2014 Vitamin D deficiency 03/12/2010 Allergic rhinitis, cause unspecified 02/25/2008 Resolved Problems Problem Noted Date Diagnosed Date Resolved Date MAJOR DEPR, RECURR, PARTIAL REMISSION 10/08/2007 11/09/2014 Encounters Date Type Department Care Team Description 09/24/[address] [facility] [phone] Susie Vogt MD 09/24/[address] [facility] [phone] Susie Vogt MD from Last 3 Months Immunizations Immunization Administration Dates Next Due COVID-19 vaccine (Moderna 100mcg/0.5mL) PF MDGrayson 06/29/2020,05/31/2020 Hepatitis B (Peds) 02/13/1999,08/08/1998, 999 Influenza, [...] file 01/27/2023 Food Insecurity Answer Date Recorded Do you worry your food will run out before you are able to buy more? 1 01/27/2023 Transportation Needs Answer Date Record ed Lack of Transportation (Medical) 1 01/27/2023 Housing Stability Answer Date Recorded What is your housing situation today? 1 01/27/2023 Comments No Sex and Gender Information Value Date Recorded Sex Assigned at Not on file Legal Sex Female 5:26 AM INVOICING SPECIALIST Gender Identity Not on file Sexual Orientation Not on file Occupation Industry Job Start Date Job End Date [employer] Not on file Not on file Not on file Obstetrics History Para Term AB IAB SAB Ectopic Multiple Livin g Live Births 1 1 1 Date Outcome GA Total Labor Labor/2nd/3rd Weight Sex Type Anes PTL Hanh A1 A5 Name Clin Last Filed Vital Signs Vital Sign Reading Time Taken Comments Blood Pressure 102/64 04/21/2023 2:08 PM INVOICING SPECIALIST Pulse 96 04/21/2023 2:08 PM INVOICING SPECIALIST Temperature 36.4 C (97.6 F) 05/12/2017 3:29 PM INVOICING SPECIALIST Respiratory Rate 16 07/17/2018 12:1 2 PM CDT Oxygen Saturation 100% 04/21/2023 2:08 PM INVOICING SPECIALIST Inhaled Oxygen Concentration - - Weight 108.1 kg (238 lb 6.4 oz) 04/21/2023 2:08 PM INVOICING SPECIALIST Height 170 cm (5' 6.93) 04/21/2023 2:08 PM INVOICING SPECIALIST Body Mass Index 37.42 04/21/2023 2:08 PM INVOICING SPECIALIST Plan of Treatment Health Maintenance Due Date Last Done Comments HIV for age 15-65 1999 Hepatitis C screening for age 18-79 2002 COVID-19 vaccine series ( season) 2023 02/22/2021, 02/22/2021, 06/29/2020, Additional history exists Depression screening for age 12+ 01/28/2024 01/27/2023, 06/07/2016, 09/27/2015, Additional history exists BMI (ht and wt on same day) for age 18+ 04/21/2024 04/21/2023, 01/27/2023, 05/12/2017, Additional history exists Influenza Vaccine (Season Ended) 2024 01/27/2023, 02/05/2022, 02/14/2021, Additional history exists Pap test for age 21-65 05/05/2026 ([facility]), 10/15/2019, 10/15/2019, Additional history exists Tetanus booster 07/15/2028 07/15/2018, 05/2010, 07/27/1996 Hepatitis B series for 19+ Completed 02/13, 08/08/1998, 07/07/1998 Tdap Completed 07/15/2018, 03/08/2011 Pneumococcal series for age 6-49 Aged Out No longer eligible based on patient's age to complete this topic Procedures Procedure Name Priority Date/Time Associated Diagnosis Comments WATER RESOURCES PROGRAM DIRECTOR THIN PREP PAP SCREEN IMAGED Routine 10/15/2019 2:00 PM CDT from Last 3 Months or Most Recently Relevant to Health Maintenance Results * WATER RESOURCES PROGRAM DIRECTOR THIN PREP PAP SCREEN IMAGED (10/15/2019 2:00 PM CDT) Case Report Gynecologic Cytology Report Case: [id number] Authorizing Provider: Susie Vogt MD Collected: 10/15/2019 1400 Ordering Location: [facility] Received: 10/19/2019 0948 First Screen: Giovanny Perea Specimen: WATER RESOURCES PROGRAM DIRECTOR ThinPrep Vial Screening, Cervical/Vaginal 10/20/2019 12:34 PM CDT [facility] INTERPRETATION/ RESULT NEGATIVE FOR INTRAEPITHELIAL LESION OR MALIGNANCY (NIL) (none) 10/20/2019 12:34 PM CDT [facility] at 1234 CDT SPECIMEN ADEQUACY Satisfactory for evaluation Endocervical component present 10/20/2019 12:34 PM CDT [facility] HPV REQUEST HPV and PAP 10/20/2019 12:34 PM CDT [facility] Last Pap Date 07/24/2010 10/20/2019 12:34 PM CDT [facility] Last Pap Result NIL 0 12:34 PM CDT [facility] Menstrual Status 10/20/2019 12:34 PM CDT [facility] Comment:IUD Additional Information 10/20/2019 12:34 PM CDT [facility] Comment: Interpreted at Laboratory - [address] [place] [address], [place] [address] Automated Review Successful 10/20/2019 12:34 PM CDT [facility] Comment:Specimen processed s uccessfully by automated director of field sales device, [employer] System, [employer] ANCILLARY TESTING WATER RESOURCES PROGRAM DIRECTOR HPV Ordered, Please see separate report 10/20/2019 12:34 PM CDT [facility] Note The pap test is a [...] and malignant lesions. 10/20/2019 12:34 PM CDT [facility] Other (Cervical/Vagina l) 10/15/2019 2:00 PM CDT 10/19/2019 9:48 AM CDT us Susie Vogt MD PATHOLOGY/CYTOLOGY Final R esult [facility] [address] [place] [address], from Last 3 Months or Most Recently Relevant to Health Maintenance Insurance [employer] Care Teams Pediatric Pathologist Relationship Specialty Start Date End Date Janet Jones [place] [address] PCP - General Family Practice 04/21/23
--- OUTSIDE RECORDS SUMMARY | 2024-09-24 15:18 | XMS_ITS | Encounter Summary ---
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 If you don't hear from a uniforms sales representative within 2 business days, please call . Does central scheduling need to contact this patient to schedule? No Comments Please be aware that coverage of these services is subject to the terms and limitations of your health insurance plan. Call member services at your health plan with any benefit or coverage questions. [facility] will call you to coordinate your care as prescribed by your provider. If you don't hear from a uniforms sales representative within 2 business days, please call . Encounter Details Date Type Department Care Team (Late st Contact Info) Description 08/23/2024 Transcribe Orders GENERIC EXTERNAL DATA DEPARTMENT Alysa Chinchilla MD [facility] [address] [address] Classical Chase-Danlos syndrome (Primary Dx) Social History Tobacco [...] Answer Date Recorded Do you have housing? (Kellyin g is defined as stable permanent housing [...] Sex Assigned at Female 02/16/2019 10:59 AM DERRICK BOAT OPERATOR Legal Sex Female 11:51 AM CDT Gender Identity Female 02/16/2019 10:59 AM DERRICK BOAT OPERATOR Sexual Orientation Bisexual 08/08/2023 1: 47 PM CDT documented as of this encounter Plan of Treatment Upcoming Encounters Date Type Department Care Team (Late st Contact Info) Description 10/25/2024 10:15 AM CDT Therapy Visit [address] [address] Alysa Chinchilla MD [employer] [address] [place] [address] Monica Kellogg, PT [address] [place] [address] 11/08/2024 4:30 PM CDT Office Visit [facility] Internal Medicine [address]th [place] [phone] Shalom Renteria MD [address] [place] [address] 11/22/2024 10:15 AM CDT Therapy Visit [address] [address] Alysa Chinchilla MD [facility] [facility] [address] [address] [place] Monica Ni, PT 909 [place] [address] 09/09/2025 2:45 PM CDT Office Visit [facility] [address] [phone] Malini Anderson PA-C [address] [place] [address] Scheduled Referrals Name Type Priority Associated Diagnoses Orde r Schedule Physical Therapy Band Sawmill Operator Referral Referral Routine Classical Chase-Danlos syndrome Ordered: 08/23/2024 documented as of this encounter Visit Diagnoses Diagnosis Classical Chase-Danlos syndrome- Primary documented in this encounter Additional Health Concerns Assessment Noted Time PHQ-9 Depression Total Score: 5 04/07/19 25 2:20 PM DERRICK BOAT OPERATOR documented as of this encounter Care Teams Stack Matcher Relationship Specialty Start Date End Date Shalom Renteria MD [address] [place] [address] PCP - General Internal Medicine 03/03/24 Devika Fleming MD [address] [place] [address] Neurology 10/30/21 Shalom Renteria MD [address] [place] [address] Assigned PCP 12/29/23 Melissa Melvin PA-C [address] [facility] [place] [address] Physician Hospice Patient Care Secretary Gastroenterology 03/03/24 Malini Anderson PA-C [address] [place] [address] Physician Hospice Patient Care Secretary 03/03/24 Melissa Melvin PA-C [address] [address] [address] Assigned Gastroenterology Provider 04/29/24 documented as of this encounter
--- OUTSIDE RECORDS SUMMARY | 2024-09-24 15:18 | XMS_ITS | Encounter Summary ---
Author Organization [place] Address [address] [place] [address] Care Team Providers Care Film Or Videotape Editor Name Role Phone AjpuneetDevika MD Unavailable [phone] Shalom Renteria MD Unavailable Melissa Melvin PA-C Unavailable Shalom Renteria MD Primary Care Provider [phone] Malini Anderson PA-C Unavailable [phone] Melissa Melvin PA-C Unavailable Encounter Details Date Type Department Care Team (Latest Contact Info) Description 09/03/2024 Travel Social History Tobacco Use Types Packs/Day [...] in an abandoned building, in an overnight alf, or couch-surfing.) Yes 11/23/2023 Are you worried [...] Sex Assigned at Female 02/16/2019 10:59 AM PESTICIDE USE MEDICAL COORDINATOR Legal Sex Female 11:51 AM CDT Gender Identity Female 02/16/2019 10:59 AM PESTICIDE USE MEDICAL COORDINATOR Sexual Orientation Bisexual 08/08/2023 1: 47 PM CDT documented as of this encounter Plan of Treatment Upcoming Encounters Date Type Department Care Team (Late st Contact Info) Description 10/25/2024 10:15 AM CDT Therapy Visit [facility] Services [address] [place] [address] Alysa Chinchilla MD [facility] [address] [address] Monica Kellogg, PT [address] [place] [address] 411475 11/08/2024 4:30 PM CDT Office Visit [facility] Internal Medicine [address] 4th [place] [address] Shalom Renteria MD 909 [place] [address] 11/22/2024 10:15 AM CDT Therapy Visit [facility] 2200 [facility] [address] [place] [address] Alysa Chinchilla MD [address] [address] Monica Kellogg, PT 909 [place] [address] 09/09/2025 2:45 PM CDT Office Visit [address] [phone] Malini Anderson PA-C [address] [place] [address] documented as of this encounter Visit Diagnoses Not on filedocumented in this encounter Additional Health Concerns Assessment Noted Time PHQ-9 Depression Total Score: 5 04/07/19 25 2:20 PM PESTICIDE USE MEDICAL COORDINATOR documented as of this encounter Care Teams Film Or Videotape Editor Relationship Specialty Start Date End Date Shalom Renteria MD [address] [place] [address] PCP - General Internal Medicine 03/03/24 Devika Fleming MD [address] [place] [address] Neurology 10/30/21 Shalom Renteria MD [address] [place] [address] Assigned PCP 12/29/23 Melissa Melvin PA-C [address] [place] [address] Physician Conditioning Machine Operator Gastroenterology 03/03/24 Malini Anderson PA-C [address] [place] [address] Physician Conditioning Machine Operator 03/03/24 Melissa Melvin PA-C [address] [place] [address] Assigned Gastroenterology Provider 04/29/24 documented as of this encounter
--- OUTSIDE RECORDS SUMMARY | 2024-09-24 15:18 | XMS_ITS | Encounter Summary ---
Author Organization [place] Address [address] [place] [address] Care Team Providers Care Fancy Wire Drawer Name Role Phone AjpuneetDevika MD Unavailable [phone] Shalom Renteria MD Unavailable Melissa Melvin PA-C Unavailable Shalom Renteria MD Primary Care Provider [phone] Malini Anderson PA-C Unavailable [phone] Melissa Melvin PA-C Unavailable Encounter Details Date Type Department Care Team (Latest Contact Info) Description 09/08/2024 Travel Social History Tobacco Use Types Packs/Day [...] in an abandoned building, in an overnight residential, or couch-surfing.) Yes 11/23/2023 Are you worried [...] Sex Assigned at Female 02/16/2019 10:59 AM PREKINDERGARTEN TEACHER Legal Sex Female 11:51 AM CDT Gender Identity Female 02/16/2019 10:59 AM PREKINDERGARTEN TEACHER Sexual Orientation Bisexual 08/08/2023 1: 47 PM CDT documented as of this encounter Plan of Treatment Upcoming Encounters Date Type Department Care Team (Late st Contact Info) Description 10/25/2024 10:15 AM CDT Therapy Visit [facility] Rehabilitation Services [address] [place] [address] Alysa Chinchilla MD [facility] [address] [address] Monica Kellogg, PT [address] [place] [address] 025775 11/08/2024 4:30 PM CDT Office Visit [facility] Internal Medicine [address] 4th [place] [address] Shalom Renteria MD 909 [place] [address] 11/22/2024 10:15 AM CDT Therapy Visit [facility] 2200 [facility] [address] [place] [address] Alysa Chinchilla MD [address] [address] Monica Kellogg, PT 909 [place] [address] 09/09/2025 2:45 PM CDT Office Visit [address] [phone] Malini Anderson PA-C [address] [place] [address] documented as of this encounter Visit Diagnoses Not on filedocumented in this encounter Additional Health Concerns Assessment Noted Time PHQ-9 Depression Total Score: 5 04/07/19 25 2:20 PM PREKINDERGARTEN TEACHER documented as of this encounter Care Teams Fancy Wire Drawer Relationship Specialty Start Date End Date Shalom Renteria MD [address] [place] [address] PCP - General Internal Medicine 03/03/24 Devika Fleming MD [address] [place] [address] Neurology 10/30/21 Shalom Renteria MD [address] [place] [address] Assigned PCP 12/29/23 Melissa Melvin PA-C [address] [place] [address] Physician Immigration Coordinator Gastroenterology 03/03/24 Malini Anderson PA-C [address] [place] [address] Physician Immigration Coordinator 03/03/24 Melissa Melvin PA-C [address] [place] [address] Assigned Gastroenterology Provider 04/29/24 documented as of this encounter
--- OUTSIDE RECORDS SUMMARY | 2024-09-25 00:54 | XMS_ITS | Encounter Summary ---
Author Organization [place] Address [address] [place] [address] Care Team Providers Care Tank House Operator Helper Name Role Phone AjpuneetDevika MD Unavailable [phone] Shalom Renteria MD Unavailable Melissa Melvin-C Unavailable Shalom Renteria MD Primary Care Provider [phone] Malini Anderson-C Unavailable [phone] Melissa Melvin-C Unavailable Encounter Details Date Type Department Care Team (Late st Contact Info) Description 03/08/2024 [facility] [address] [place] [address] 140 [place] [address] Kimberly Suh, PT 2200 [place] [address] Social History Tobacco Use Types [...] Sex Assigned at Female 02/16/2019 10:59 AM FIREARMS ASSEMBLY SUPERVISOR Legal Sex Female 11:51 AM CDT Gender Identity Female 02/16/2019 10:59 AM FIREARMS ASSEMBLY SUPERVISOR Sexual Orientation Bisexual 08/08/2023 1: 47 PM CDT documented as of this encounter Plan of Treatment Upcoming Encounters Date Type Department Care Team (Late st Contact Info) Description 10/25/2024 10:15 AM CDT Therapy Visit [facility] [address] [place] [address] [address] [place], [place] [phone] Alysa Chinchilla MD [facility] [address] [id number] Monica Kellogg, PT 909 [place] [address] 11/08/2024 4:30 PM CDT Office Visit [facility] Internal Medicine [address] 4th [place] [phone] Sahlom Renteria MD [address] [place] [address] 11/22/2024 10:15 AM CDT Therapy Visit [facility] 2[address] [facility] [address] [place] [address] Alysa Chinchilla MD [facility] [address] [address] Monica Kellogg, PT [address] [place] [address] 09/09/2025 2:45 PM CDT Office Visit [facility] [address] [phone] Malini Anderson PA-C [address] [place] [address] documented as of this encounter Visit Diagnoses Not on filedocumented in this encounter Additional Health Concerns Assessment Noted Time PHQ-9 Depression Total Score: 9 11/28/19 24 12:43 PM CDT documented as of this encounter Care Teams Tank House Operator Helper Relationship Specialty Start Date End Date Shalom Renteria MD [address] [place] [address] PCP - General Internal Medicine 03/03/24 Devika Fleming MD [address] [place] [address] Neurology 10/30/21 Shalom Renteria MD 909 [place] [address] Assigned PCP 12/29/23 Melissa Melvin PA-C [address] [place] [address] Physician Storehouse Clerk Gastroenterology 03/03/24 Malini Anderson PA-C [address] [address] Physician Storehouse Clerk 03/03/24 Melissa Melvin PA-C [address] [place] [address] Assigned Gastroenterology Provider 04/29/24 documented as of this encounter
--- OUTSIDE RECORDS SUMMARY | 2024-09-25 00:54 | XMS_ITS | Encounter Summary ---
Author Organization [place] Address [address] [place] [address] Care Team Providers Care Welcome Center Attendant Name Role Phone Susie Vogt MD Primary Care Provider Devika Fleming MD Unavailable [phone] Devika Fleming MD Unavailable [phone] Alysa Chinchilla MD Primary Care Provider [phone] Shalom Renteria MD Unavailable Melissa Melvin PA-C Unavailable Shalom Renteria MD Primary Care Provider [phone] Malini Anderson PA-C Unavailable [phone] Melissa Melvin PA-C Unavailable Encounter Details Date Type Department Care Team (Late st Contact Info) Description 10/16/2020 [facility] [address] [place] [address] Susi Gloria, RN Social History Tobacco Use Types Packs/Day Years Used Date Smoking Tobacco: Never Smokeless Tobacco: Never Alcohol Use Standard Drinks/Week Comments Not Currently 0 (1 standard drink = 0.6 oz pur e alcohol) PHQ-2 Answer Date Recorded PHQ-2 Score 2 02/22/2019 Comments Unknown Sex and Gender Information Value Date Recorded Sex Assigned at Female 02/16/2019 10:59 AM HAND CIGAR MAKER Legal Sex Female 11:51 AM CDT Gender Identity Female 02/16/2019 10:59 AM HAND CIGAR MAKER Sexual Orientation Bisexual 08/08/2023 1: 47 PM CDT documented as of this encounter Plan of Treatment Upcoming Encounters Date Type Department Care Team (Late st Contact Info) Description 10/25/2024 10:15 AM CDT Therapy Visit [address] [place] [address] Alysa Chinchilla MD [facility] [address] [address] Monica Kellogg, PT [address] [place] [address] 11/08/2024 4:30 PM CDT Office Visit [facility] Internal Medicine [address] 4th [place] [phone] Shalom Renteria MD [address] [place] [address] 11/22/2024 10:15 AM CDT Therapy Visit [address] [address] Alysa Chinchilla MD [facility] [address] [address] Monica Kellogg, PT [address] [place] [address] 09/09/2025 2:45 PM CDT Office Visit [facility] [address] [phone] Malini Anderson PA-C [address] [place] [address] documented as of this encounter Visit Diagnoses Not on filedocumented in this encounter Care Teams Welcome Center Attendant Relationship Specialty Start Date End Date Susie Vogt MD PCP - General stepdown nurse 12/29/18 08/07/23 Alysa Chinchilla MD [facility] [address] [place] [address] PCP - General 08/08/23 03/02/24 Shalom Renteria MD [address] [place] [address] PCP - General Internal Medicine 03/03/24 Devika Fleming MD [address] [place] [address] Neurology 10/30/21 Devika Fleming MD [address] [place] [address] Assigned Neuroscience Provider 02/23/22 08/27/23 Shalom Renteria MD [address] [place] [address] Assigned PCP 12/29/23 Melissa Melvin PA-C [address] [place] [address] Physician Health Care Marketing Specialist Gastroenterology 03/03/24 Malini Anderson PA-C [address] [address] Physician Health Care Marketing Specialist 03/03/24 Melissa Melvin PA-C [address] [place] [address] Assigned Gastroenterology Provider 04/29/24 documented as of this encounter
--- OUTSIDE RECORDS SUMMARY | 2024-09-25 00:54 | XMS_ITS | Encounter Summary ---
Author Organization [place] Address [address] [place] [address] Care Team Providers Care Academic Assistant Name Role Phone Susie Vogt MD Primary Care Provider [phone] Devika Fleming MD Unavailable [phone] Devika Fleming MD Unavailable [phone] Alysa Chinchilla MD Primary Care Provider [phone] Shalom Renteria MD Unavailable Melissa Melvin-Margarita Unavailable Shalom Rentreia MD Primary Care Provider [phone] Malini Anderson-C Unavailable [phone] Melissa Melvin PA-C Unavailable Reason for Visit * Reason Onset Date Comments Refill Request 10/07/2020 Encounter Details Date Type Department Care Team (Late st Contact Info) Description 10/07/2020 My[facility] Refill [facility] Neurology [address] [address] Lali Orr MD 909 [facility] 2121 [place] [address] Refill Request Social History Tobacco Use Types Packs/Day Years Used Date Smoking Tobacco: Never Smokeless Tobacco: Never Alcohol Use Standard Drinks/Week Comments Not Currently 0 (1 standard drink = 0.6 oz pur e alcohol) PHQ-2 Answer Date Recorded PHQ-2 Score 2 02/22/2019 Comments Unknown Sex and Gender Information Value Date Recorded Sex Assigned at Female 02/16/2019 10:59 AM EDGE GRINDER MACHINE Legal Sex Female 11:51 AM CDT Gender Identity Female 02/16/2019 10:59 AM EDGE GRINDER MACHINE Sexual Orientation Bisexual 08/08/2023 1: 47 PM CDT documented as of this encounter Plan of Treatment Upcoming Encounters Date Type Department Care Team (Late st Contact Info) Description 10/25/2024 10:15 AM CDT Therapy Visit [address] [address] Alysa Chinchilla MD [facility] [address] [address] Monica Kellogg, PT [address] [place] [address] 11/08/2024 4:30 PM CDT Office Visit [facility] Internal Medicine [address] [phone] Shalom Renteria MD [address] [place] [address] 11/22/2024 10:15 AM CDT Therapy Visit [address] [address] Alysa Chinchilla MD [facility] [address] [address] Monica Kellogg, PT [address] [place] [address] 09/09/2025 2:45 PM CDT Office Visit [address] [place] [address] Malini Anderson PA-C [address] [address] documented as of this encounter Visit Diagnoses Diagnosis Chronic tension-type headache, intractable Chronic tension type headache Migraine with aura and without status migrainosus, not intractable Migraine with aura, without mention of intractable migraine without mention of status migrainosus documented in this encounter Care Teams Academic Assistant Relationship Specialty Start Date End Date Susie Vogt MD PCP - General sewer line repairer 12/29/18 08/07/[address] [facility] [address] [place] [address] PCP - General 08/08/23 03/02/24 Shalom Renteria MD [address] [place] [address] PCP - General Internal Medicine 03/03/24 Devika Fleming MD [address] [place] [address] Neurology 10/30/21 Devika Fleming MD [address] [place] [address] Assigned Neuroscience Provider 02/23/22 08/27/23 Shalom Renteria MD [address] [place] [address] Assigned PCP 12/29/23 Melissa Melvin PA-C [address] [place] [address] Physician Healthcare Customer Service Gastroenterology 03/03/24 Malini Anderson PA-C [address] [place] [address] Physician Healthcare Customer Service 03/03/24 Melissa Melvin PA-C [address] [place] [address] Assigned Gastroenterology Provider 04/29/24 documented as of this encounter
--- OUTSIDE RECORDS SUMMARY | 2024-09-25 00:54 | XMS_ITS | Encounter Summary ---
Author Organization [place] Address [address] [place] [address] Care Team Providers Care Settlement Worker Name Role Phone AjpuneetDevika MD Unavailable [phone] Shalom Renteria MD Unavailable Melissa Melvin PA-C Unavailable Shalom Renteria MD Primary Care Provider [phone] Malini Anderson PA-C Unavailable [phone] Melissa Melvni PA-C Unavailable Encounter Details Date Type Department Care Team (Late st Contact Info) Description 04/15/2024 [facility] G[facility]enterology Clinic [address] 4th [place] [address] [place] Social History Tobacco [...] in an abandoned building, in an overnight halfway, or couch-surfing.) Yes 11/23/2023 Are you worried [...] Sex Assigned at Female 02/16/2019 10:59 AM DOBBY LOOM CHAIN PEGGER Legal Sex Female 11:51 AM CDT Gender Identity Female 02/16/2019 10:59 AM DOBBY LOOM CHAIN PEGGER Sexual Orientation Bisexual 08/08/2023 1: 47 PM CDT documented as of this encounter Plan of Treatment Upcoming Encounters Date Type Department Care Team (Late st Contact Info) Description 10/25/2024 10:15 AM CDT Therapy Visit [facility] [address] [facility] [address] [place] [address] Alysa Chinchilla MD [facility] [address] [address] Monica Kellogg, PT 909 [place] [address] 11/08/2024 4:30 PM CDT Office Visit [facility] Internal Medicine [place] 909 [facility] 4th [place] [phone] Shalom Renteria MD [address] [place] [address] 11/22/2024 10:15 AM CDT Therapy Visit [facility] [address] [facility] [address] [place] [address] Alysa Chinchilla MD [facility] [address] [address] Monica Kellogg, PT [address] [place] [address] 09/09/2025 2:45 PM CDT Office Visit [facility] [address] [phone] Mailni Anderson PA-C [address] [place] [address] documented as of this encounter Visit Diagnoses Not on filedocumented in this encounter Additional Health Concerns Assessment Noted Time PHQ-9 Depression Total Score: 5 04/07/19 25 2:20 PM DOBBY LOOM CHAIN PEGGER documented as of this encounter Care Teams Settlement Worker Relationship Specialty Start Date End Date Shalom Renteria MD [address] [place] [address] PCP - General Internal Medicine 03/03/24 Devika Fleming MD [address] [place] [address] Neurology 10/30/21 Shalom Renteria MD 909 [place] [address] Assigned PCP 12/29/23 Melissa Melvin PA-C [address] [place] [address] Physician Grounds/Maintenance Specialist Gastroenterology 03/03/24 Malini Anderson PA-C [address] [address] Physician Grounds/Maintenance Specialist 03/03/24 Melissa Melvin PA-C [address] [place] [address] Assigned Gastroenterology Provider 04/29/24 documented as of this encounter
--- OUTSIDE RECORDS SUMMARY | 2024-09-25 00:54 | XMS_ITS | Encounter Summary ---
Author Organization [place] Address [address] [place] [address] Care Team Providers Care Servicer Coin Machines Name Role Phone AjpuneetDevika MD Unavailable [phone] Shalom Renteria MD Unavailable Melissa Melvin-C Unavailable Shalom Renteria MD Primary Care Provider [phone] Malini Anderson-Margarita Unavailable [phone] Melissa Melvin-C Unavailable Encounter Details Date Type Department Care Team (Late st Contact Info) Description 03/29/2024 [facility] [address] [address] Yecenia Jones Social History Tobacco [...] Sex Assigned at Female 02/16/2019 10:59 AM AUTOMOTIVE FINANCE MANAGER Legal Sex Female 11:51 AM CDT Gender Identity Female 02/16/2019 10:59 AM AUTOMOTIVE FINANCE MANAGER Sexual Orientation Bisexual 08/08/2023 1: 47 PM CDT documented as of this encounter Plan of Treatment Upcoming Encounters Date Type Department Care Team (Late st Contact Info) Description 10/25/2024 10:15 AM CDT Therapy Visit [facility] [address] [facility] [address] [place] [address] Alysa Chinchilla MD [facility] [address] [address] Monica Kellogg, PT 909 [place] [address] 11/08/2024 4:30 PM CDT Office Visit [facility] Internal Medicine [address] 4th [place] [phone] Shalom Renteria MD [address] [place] [address] 11/22/2024 10:15 AM CDT Therapy Visit [facility] [address] [facility] [address] [place] [address] Alysa Chinchilla MD [facility] [address] [address] Monica Kellogg, PT [address] [place] [address] 09/09/2025 2:45 PM CDT Office Visit [facility] [address] [phone] Malini Anderson PA-C [address] [place] [phone] documented as of this encounter Visit Diagnoses Not on filedocumented in this encounter Additional Health Concerns Assessment Noted Time PHQ-9 Depression Total Score: 9 11/28/19 24 12:43 PM CDT documented as of this encounter Care Teams Servicer Coin Machines Relationship Specialty Start Date End Date Shalom Renteria MD [address] [place] [address] PCP - General Internal Medicine 03/03/24 Devika Fleming MD [address] [place] [address] Neurology 10/30/21 Shalom Renteria MD 909 [place] [address] Assigned PCP 12/29/23 Melissa Melvin PA-C [address] [place] [address] Physician Agronomy Location Manager Gastroenterology 03/03/24 Malini Anderson PA-C [address] [place] [address] Physician Agronomy Location Manager 03/03/24 Melissa Melvin PA-C [address] [place] [address] Assigned Gastroenterology Provider 04/29/24 documented as of this encounter
--- OUTSIDE RECORDS SUMMARY | 2024-09-25 00:54 | XMS_ITS | Encounter Summary ---
Author Organization [place] Address [address] [place] [address] Care Team Providers Care Priest Name Role Phone AjpuneetDevika MD Unavailable [phone] Alysa Chinchilla MD Primary Care Provider [phone] Shalom Renteria MD Unavailable Melissa MelvinC Unavailable Shalom Renteria MD Primary Care Provider [phone] Malini Anderson PA-C Unavailable [phone] Melissa Melvin PA-C Unavailable Encounter Details Date Type Department Care Team (Late st Contact Info) Description 11/28/2023 [facility] Internal Medicine [address] [address] Shalom Renteria MD [address] [place] [address] Social History Tobacco Use Types Packs/Day [...] in an abandoned building, in an overnight intermediate, or couch-surfing.) Yes 11/23/2023 Are you worried [...] Sex Assigned at Female 02/16/2019 10:59 AM WAREHOUSE HAND Legal Sex Female 11:51 AM CDT Gender Identity Female 02/16/2019 10:59 AM WAREHOUSE HAND Sexual Orientation Bisexual 08/08/2023 1: 47 PM CDT documented as of this encounter Plan of Treatment Upcoming Encounters Date Type Department Care Team (Late st Contact Info) Description 10/25/2024 10:15 AM CDT Therapy Visit [facility] [address] [place] [address] Alysa Chinchilla MD [facility] [address] [address] Monica Kellogg, PT [address] [place] [id number] 11/08/2024 4:30 PM CDT Office Visit [facility] Internal Medicine [address]th [place] [address] Shalom Renteria MD 909 [place] [address] 11/22/2024 10:15 AM CDT Therapy Visit [facility] [address] [facility] [address] [place] [address] Alysa Chinchilla MD [employer] [facility] 47[address] [place] [address] Monica Kellogg, PT [address] [place] [address] 09/09/2025 2:45 PM CDT Office Visit [address] [phone] Malini Anderson PA-C [address] [place] [address] documented as of this encounter Visit Diagnoses Not on filedocumented in this encounter Additional Health Concerns Assessment Noted Time PHQ-9 Depression Total Score: 9 11/28/19 24 12:43 PM CDT documented as of this encounter Care Teams Priest Relationship Specialty Start Date End Date Alysa Chinchilla MD [employer] [address] [place] [address] PCP - General 08/08/23 03/02/24 Shalom Renteria MD [address] [place] [address] PCP - General Internal Medicine 03/03/24 Devika Fleming MD [address] [place] [address] Neurology 10/30/21 Shalom Renteria MD 909 [place] [address] Assigned PCP 12/29/23 Melissa Melvin PA-C [address] [place] [address] Physician Narcotics And/Or Vice Detective Gastroenterology 03/03/24 Malini Anderson PA-C [address] [address] Physician Narcotics And/Or Vice Detective 03/03/24 Melissa Melvin PA-C [address] [place] [address] Assigned Gastroenterology Provider 04/29/24 documented as of this encounter
--- OUTSIDE RECORDS SUMMARY | 2024-09-25 00:54 | XMS_ITS | Encounter Summary ---
Author Organization [place] Address [address] [place] [address] Care Team Providers Care Optical Lathe Operator Name Role Phone Susie Vogt MD Primary Care Provider Devika Fleming MD Unavailable Devika Fleming MD Unavailable [phone] Devika Fleming MD Unavailable [phone] Alysa Chinchilla MD Primary Care Provider [phone] Shalom Renteria MD Unavailable Melissa Melvin PA-C Unavailable Shalom Renteria MD Primary Care Provider [phone] Malini Anderson PA-C Unavailable [phone] Melissa Melvin PA-C Unavailable Reason for Visit * Reason Onset Date Comments Refill Request 04/07/2020 Encounter Details Date Type Department Care Team (Late st Contact Info) Description 04/07/2020 [facility] [address] [address] Lali Orr MD [address] [place] [address] 2121 [place] [address] Refill Request Social History Tobacco Use Types Packs/Day Years Used Date Smoking Tobacco: Never Smokeless Tobacco: Never Alcohol Use Standard Drinks/Week Comments Not Currently 0 (1 standard drink = 0.6 oz pur e alcohol) PHQ-2 Answer Date Recorded PHQ-2 Score 2 02/22/2019 Comments Unknown Sex and Gender Information Value Date Recorded Sex Assigned at Female 02/16/2019 10:59 AM SMART GRID ENGINEER Legal Sex Female 11:51 AM CDT Gender Identity Female 02/16/2019 10:59 AM SMART GRID ENGINEER Sexual Orientation Bisexual 08/08/2023 1: 47 PM CDT documented as of this encounter Miscellaneous Notes * Telephone Encounter - Jo Parson CMA - 04/10/2020 8:53 AM SMART GRID ENGINEER Rx Authorization: ??? Requested Medication/ Dose: Nortriptyline 10MG caps ??? Date last refill ordered: 02/21/20 ??? Quantity ordered: 90 caps ??? # refills: ??? Date of last clinic visit with ordering provider: 02/22/19 ??? Date of next clinic visit with ordering provider: F/U 1 year ??? All pertinent protocol data (lab date/result): ??? Include pertinent information from patients message: T GRID ENGINEER documented in this encounter Plan of Treatment Upcoming Encounters Date Type Department Care Team (Late st Contact Info) Description 10/25/2024 10:15 AM CDT Therapy Visit [facility] Rehabilitation Services [address] [place] [address] Alysa Chinchilla MD [facility] [address] [address] Monica Kellogg, PT [address] [place] [address] 11/08/2024 4:30 PM CDT Office Visit [facility] Internal Medicine [place] [address] [facility] 4th [place] [phone] Shalom Renteria MD 909 [place] [address] 11/22/2024 10:15 AM CDT Therapy Visit [facility] [address] [facility] [address] [place] [address] Alysa Chinchilla MD [employer] 4700 [place] [address] Monica Kellogg, PT 909 [place] [address] 09/09/2025 2:45 PM CDT Office Visit [address] [phone] Malini Anderson PA-C [address] [place] [address] documented as of this encounter Visit Diagnoses Diagnosis Chronic tension-type headache, intractable Chronic tension type headache Migraine with aura and without status migrainosus, not intractable Migraine with aura, without mention of intractable migraine without mention of status migrainosus documented in this encounter Care Teams Optical Lathe Operator Relationship Specialty Start Date End Date Susie Vogt MD PCP - General venture capitalist 12/29/18 08/07/23 Alysa Chinchilla MD [employer] [address] [place] [address] PCP - General 08/08/23 03/02/24 Shalom Renteria MD [address] [place] [address] PCP - General Internal Medicine 03/03/24 Devika Fleming MD [address] [place] [address] Assigned Neuroscience Provider 01/28/20 08/26/20 Devika Fleming MD [address] [place] [address] MD Neurology 10/30/21 Devika Fleming MD [address] [place] [address] Assigned Neuroscience Provider 02/23/22 08/27/23 Shalom Renteria MD [address] [place] [address] Assigned PCP 12/29/23 Melissa Melvin PA-C [address] [place] [address] Physician Revenue Research Analyst Gastroenterology 03/03/24 Malini Anderson PA-C [address] [address] Physician Revenue Research Analyst 03/03/24 Melissa Melvin PA-C [address] [place] [address] Assigned Gastroenterology Provider 04/29/24 documented as of this encounter
--- OUTSIDE RECORDS SUMMARY | 2024-09-25 00:54 | XMS_ITS | Encounter Summary ---
Author Organization [place] Address [address] [place] [address] Care Team Providers Care Roof Assembler Name Role Phone Susie Vogt MD Primary Care Provider [phone] Devika Fleming MD Unavailable [phone] Devika Fleming MD Unavailable [phone] Alysa Chinchilla MD Primary Care Provider [phone] Shalom Renteria MD Unavailable Melissa Melvin-C Unavailable Shalom Renteria MD Primary Care Provider [phone] Malini Anderson-C Unavailable [phone] Melissa Melvin-C Unavailable Encounter Details Date Type Department Care Team (Late st Contact Info) Description 04/10/2022 [facility] Clinic [address] 3rd [place] [address] Devika Fleming MD [address] [place] [address] Social History Tobacco Use Types Packs/Day Years Used Date Smoking Tobacco: Never Smokeless Tobacco: Never Alcohol Use Standard Drinks/Week Comments Not Currently 0 (1 standard drink = 0.6 oz pur e alcohol) PHQ-2 Answer Date Recorded PHQ-2 Score 2 02/18/2022 Comments Unknown Sex and Gender Information Value Date Recorded Sex Assigned at Female 02/16/2019 10:59 AM SKI PATROL Legal Sex Female 11:51 AM CDT Gender Identity Female 02/16/2019 10:59 AM SKI PATROL Sexual Orientation Bisexual 08/08/2023 1: 47 PM CDT documented as of this encounter Plan of Treatment Upcoming Encounters Date Type Department Care Team (Late st Contact Info) Description 10/25/2024 10:15 AM CDT Therapy Visit [address] [address] Alysa Chinchilla MD [facility] [address] [address] Monica Kellogg, PT [address] [place] [address] 11/08/2024 4:30 PM CDT Office Visit [facility] Internal Medicine [address] 4th [place] [phone] Shalom Renteria MD [address] [place] [address] 11/22/2024 10:15 AM CDT Therapy Visit [address] [address] Alysa Chinchilla MD [employer] [facility] [address] [address] Monica Kellogg, PT [address] [place] [address] 09/09/2025 2:45 PM CDT Office Visit [address] [phone] Malini Anderson PA-C [address] [place] [address] documented as of this encounter Visit Diagnoses Not on filedocumented in this encounter Care Teams Roof Assembler Relationship Specialty Start Date End Date Susie Vogt MD PCP - General physician recruiter 12/29/18 08/07/23 Alysa Chinchilla MD [facility] [address] [place] [address] PCP - General 08/08/23 03/02/24 Shalom Renteria MD [address] [place] [address] PCP - General Internal Medicine 03/03/24 Devika Fleming MD [address] [place] [address] Neurology 10/30/21 Devika Fleming MD [address] [place] [address] Assigned Neuroscience Provider 02/23/22 08/27/23 Shalom Renteria MD [address] [place] [address] Assigned PCP 12/29/23 Melissa Melvin PA-C [address] [place] [address] Physician No Bake Molder Gastroenterology 03/03/24 Malini Anderson PA-C [address] [place] [address] Physician No Bake Molder 03/03/24 Melissa Melvin PA-C [address] [place] [address] Assigned Gastroenterology Provider 04/29/24 documented as of this encounter
--- OUTSIDE RECORDS SUMMARY | 2024-09-25 00:54 | XMS_ITS | Clinical Summary ---
Author Organization [facility] Address [address] [address] Care Team Providers Care Special Agent Group Insurance Name Role Phone No Primary/Referring, Phy Primary Care Provider Unavailable Source Comments You are receiving this document as you are listed as the primary care provider,follow-up provider, or the patient has been referred to you for consultation.This is in compliance with the Medicare and[facility] EHR Incentive Program,which states Providers who transition their patient to another setting of careor provider of care or refers their patient to another provider of care shouldprovide summary care record for each transition of care or referral. [facility] Allerg[facility] Active Allergy Reactions Criticality Noted Date [...] Comments Blood Pressure 115/90 03/11/2016 8:45 PM INVOICING MACHINE OPERATOR Pulse 87 03/11/2016 8:45 PM INVOICING MACHINE OPERATOR Temperature 36.4 C (97.5 F) 03/11/2016 8:44 PM INVOICING MACHINE OPERATOR Respiratory Rate 22 03/11/2016 8:44 PM INVOICING MACHINE OPERATOR Oxygen Saturation 96% 03/11/2016 8:44 PM INVOICING MACHINE OPERATOR Inhaled Oxygen Concentration - - Weight 107 kg (236 lb) 03/11/2016 8:44 PM INVOICING MACHINE OPERATOR Height 168.9 cm (5' 6.5) 03/11/2016 8:44 PM INVOICING MACHINE OPERATOR Body Mass Index 37.52 03/11/2016 8:44 PM INVOICING MACHINE OPERATOR Plan of Treatment Health Maintenance Due [...] this topic Insurance SELF INSURED Care Teams Special Agent Group Insurance Relationship Specialty Start Date End Date No Primary/Referring, Phy PCP - General 03/11/16
--- OUTSIDE RECORDS SUMMARY | 2024-09-25 00:54 | XMS_ITS | Encounter Summary ---
Author Organization [place] Address [address] [place] [address] Care Team Providers Care Soaker Name Role Phone AjpuneetDevika MD Unavailable [phone] Shalom Renteria MD Unavailable Melissa Melvin-C Unavailable Shalom Renteria MD Primary Care Provider [phone] Malini Anderson-C Unavailable [phone] Melissa Melvin-C Unavailable Encounter Details Date Type Department Care Team (Late st Contact Info) Description 03/17/2024 [facility] Internal Medicine [address] [address] Shalom Renteria MD [address] [place] [address] Social History Tobacco Use Types Packs/Day [...] in an abandoned building, in an overnight assisted, or couch-surfing.) Yes 11/23/2023 Are you worried [...] Assigned at Female 02/16/2019 10:59 AM FISH FILLETER Legal Sex Female 11:51 AM CDT Gender Identity Female 02/16/2019 10:59 AM FISH FILLETER Sexual Orientation Bisexual 08/08/2023 1: 47 PM CDT documented as of this encounter Plan of Treatment Upcoming Encounters Date Type Department Care Team (Late st Contact Info) Description 10/25/2024 10:15 AM CDT Therapy Visit [facility] [address] [place] [address] [address] [place] [address] Alysa Chinchilla MD [facility] [address] [place] [address] Monica Kellogg, PT 909 [place] [address] 11/08/2024 4:30 PM CDT Office Visit [facility] Internal Medicine [address] 4th [place] [phone] Shalom Renteria MD [address] [place] [address] 11/22/2024 10:15 AM CDT Therapy Visit [facility] [address] [facility] [address] [place] [address] Alysa Chinchilla MD [facility] [facility] [address] [address] Monica Kellogg, PT [address] [place] [address] 09/09/2025 2:45 PM CDT Office Visit [facility] [address] [phone] Malini Anderson PA-C [address] [address] documented as of this encounter Visit Diagnoses Not on filedocumented in this encounter Additional Health Concerns Assessment Noted Time PHQ-9 Depression Total Score: 9 11/28/19 24 12:43 PM CDT documented as of this encounter Care Teams Soaker Relationship Specialty Start Date End Date Shalom Renteria MD [address] [place] [address] PCP - General Internal Medicine 03/03/24 Devika Fleming MD [address] [place] [address] Neurology 10/30/21 Shalom Renteria MD [address] [place] [address] Assigned PCP 12/29/23 Melissa Melvin PA-C [address] [place] [address] Physician Traveling Clerk Gastroenterology 03/03/24 Malini Anderson PA-C [address] [place] [address] Physician Traveling Clerk 03/03/24 Melissa Melvin PA-C [address] [place] [address] Assigned Gastroenterology Provider 04/29/24 documented as of this encounter
--- OUTSIDE RECORDS SUMMARY | 2024-09-25 00:54 | XMS_ITS | Clinical Summary ---
Author Organization [employer] [facility] Address [address] [place] [address] Care Team Providers Care Health Service Coordinator Name Role Phone Janet Jones MD Primary [...] Department Care Team Description 09/24/2024 Lab Requisition [facility] [phone] Susie Vogt MD 09/24/2024 Lab Requisition [facility] [phone] Susie Vogt MD from Last 3 Months [...] on file Legal Sex Female 5:26 AM FRAUD PREVENTION ANALYST Gender Identity Not on file Sexual Orientation [...] Comments Blood Pressure 102/64 04/21/2023 2:08 PM FRAUD PREVENTION ANALYST Pulse 96 04/21/2023 2:08 PM FRAUD PREVENTION ANALYST Temperature 36.4 C (97.6 F) 05/12/2017 3:29 PM FRAUD PREVENTION ANALYST Respiratory Rate 16 07/17/2018 12:1 2 PM CDT Oxygen Saturation 100% 04/21/2023 2:08 PM FRAUD PREVENTION ANALYST Inhaled Oxygen Concentration - - Weight 108.1 kg (238 lb 6.4 oz) 04/21/2023 2:08 PM FRAUD PREVENTION ANALYST Height 170 cm (5' 6.93) 04/21/2023 2:08 PM FRAUD PREVENTION ANALYST Body Mass Index 37.42 04/21/2023 2:08 PM FRAUD PREVENTION ANALYST Plan of Treatment Health Maintenance Due Date [...] for age 21-65 05/05/2026 ([facility] 10/15/2019, 10/15/2019, Additional history exists Tetanus booster 07/15/2028 07/15/2018, 05/2010, 07/27/1996 Hepatitis B series for 19+ Completed 02/13, 08/08/1998, 07/07/1998 Tdap Completed 07/15/2018, 03/08/2011 Pneumococcal series for age 6-49 Aged Out No longer eligible based on patient's age to complete this topic Procedures Procedure Name Priority Date/Time Associated Diagnosis Comments CONTINUOUS LINTER DRIER OPERATOR THIN PREP PAP SCREEN IMAGED Routine 10/15/2019 2:00 PM CDT from Last 3 Months or Most Recently Relevant to Health Maintenance Results * CONTINUOUS LINTER DRIER OPERATOR THIN PREP PAP SCREEN IMAGED (10/15/2019 2:00 PM CDT) Case Report Gynecologic Cytology Report Case: [id number] Authorizing Provider: Susie Vogt MD Collected: 10/15/2019 1400 Ordering Location: [facility] Received: 10/19/2019 0948 First Screen: Giovanny Perea Specimen: CONTINUOUS LINTER DRIER OPERATOR ThinPrep Vial Screening, Cervical/Vaginal 10/20/2019 12:34 PM CDT [facility] INTERPRETATION/ RESULT NEGATIVE FOR INTRAEPITHELIAL LESION OR MALIGNANCY (NIL) (none) 10/20/2019 12:34 PM CDT [facility] at 1234 CDT SPECIMEN ADEQUACY Satisfactory for evaluation Endocervical component present 10/20/2019 12:34 PM CDT [facility] HPV REQUEST HPV and PAP 10/20/2019 12:34 PM CDT [facility] Last Pap Date 07/24/2010 10/20/2019 12:34 PM CDT [facility] Last Pap Result NIL 0 12:34 PM CDT [facility] Menstrual Status 10/20/2019 12:34 PM CDT [facility] Comment:IUD Additional Information 10/20/2019 12:34 PM CDT [facility] Comment: Interpreted at [facility] - [address] [place] [address], [place] [address] Automated Review Successful 10/20/2019 12:34 PM CDT [facility] Comment:Specimen processed s uccessfully by automated service attendant cafeteria device, [employer] System, [employer] ANCILLARY TESTING CONTINUOUS LINTER DRIER OPERATOR HPV Ordered, Please see separate report 10/20/2019 12:34 PM CDT [facility] Note The pap test is a [...] and malignant lesions. 10/20/2019 12:34 PM CDT [facility] Other (Cervical/Vagina l) 10/15/2019 2:00 PM CDT 10/19/2019 9:48 AM CDT us Susie Vogt MD PATHOLOGY/CYTOLOGY Final R esult [facility] [address] [place] [address], from Last 3 Months or Most Recently Relevant to Health Maintenance Insurance [facility] Care Teams Health Service Coordinator Relationship Specialty Start Date End Date [place] [address] PCP - General Family Practice 04/21/23
--- OUTSIDE RECORDS SUMMARY | 2024-09-25 00:54 | XMS_ITS | Encounter Summary ---
Author Organization [facility] Address [address] [place] [address] Care Team Providers Care Adult Daycare Coordinator Name Role Phone Susie Vogt MD Primary Care Provider Devika Fleming MD Unavailable [phone] Devika Fleming MD Unavailable [phone] Alysa Chinchilla MD Primary Care Provider [phone] Shalom Renteria MD Unavailable Melissa Melvin-Margarita Unavailable Shalom Renetria MD Primary Care Provider [phone] Malini Anderson-C Unavailable [phone] Melissa Melvin PA-C Unavailable Reason for Visit * Reason Onset Date Comments Refill Request 10/12/2020 Encounter Details Date Type Department Care Team (Late st Contact Info) Description 10/12/2020 MyC Refill [facility] [address] [address] Lali Orr MD 909 [facility] 2121 [place] [address] Refill Request Social History Tobacco Use Types Packs/Day Years Used Date Smoking Tobacco: Never Smokeless Tobacco: Never Alcohol Use Standard Drinks/Week Comments Not Currently 0 (1 standard drink = 0.6 oz pur e alcohol) PHQ-2 Answer Date Recorded PHQ-2 Score 2 02/22/2019 Comments Unknown Sex and Gender Information Value Date Recorded Sex Assigned at Female 02/16/2019 10:59 AM DIRECTOR TRANSLATIONAL Legal Sex Female 11:51 AM CDT Gender Identity Female 02/16/2019 10:59 AM DIRECTOR TRANSLATIONAL Sexual Orientation Bisexual 08/08/2023 1: 47 PM CDT documented as of this encounter Plan of Treatment Upcoming Encounters Date Type Department Care Team (Late st Contact Info) Description 10/25/2024 10:15 AM CDT Therapy Visit [address] [address] Alysa Chinchilla MD [employer] [facility] [address] [address] Monica Kellogg, PT [address] [place] [address] 11/08/2024 4:30 PM CDT Office Visit [facility] Internal Medicine [address] [phone] Shalom Renteria MD [address] [place] [address] 11/22/2024 10:15 AM CDT Therapy Visit [address] [address] Alysa Chinchilla MD [employer] [facility] [address] [address] Monica Kellogg, PT [address] [place] [address] 09/09/2025 2:45 PM CDT Office Visit [address] [place] [address] Malini Anderson PA-C [address] [address] documented as of this encounter Visit Diagnoses Diagnosis Chronic tension-type headache, intractable Chronic tension type headache Migraine with aura and without status migrainosus, not intractable Migraine with aura, without mention of intractable migraine without mention of status migrainosus documented in this encounter Care Teams Adult Daycare Coordinator Relationship Specialty Start Date End Date Susie Vogt MD PCP - General cabin cleaner 12/29/18 08/07/23 Alysa Chinchilla MD [facility] [address] [place] [address] PCP - General 08/08/23 03/02/24 Shalom Renteria MD [address] [place] [address] PCP - General Internal Medicine 03/03/24 Devika Fleming MD [address] [place] [address] Neurology 10/30/21 Devika Fleming MD [address] [place] [address] Assigned Neuroscience Provider 02/23/22 08/27/23 Shalom Renteria MD [address] [place] [address] Assigned PCP 12/29/23 Melissa Melvin PA-C [address] [place] [address] Physician Internet Marketing Consultant Gastroenterology 03/03/24 Malini Anderson PA-C [address] [place] [address] Physician Internet Marketing Consultant 03/03/24 Melissa Melvin PA-C [address] [place] [address] Assigned Gastroenterology Provider 04/29/24 documented as of this encounter
--- OUTSIDE RECORDS SUMMARY | 2024-09-25 00:54 | XMS_ITS | Encounter Summary ---
Author Organization [facility] Address [address] [place] [address] Care Team Providers Care Bag Turner Name Role Phone Susie Vogt MD Primary Care Provider Devika Fleming MD Unavailable [phone] Devika Fleming MD Unavailable [phone] Alysa Chinchilla MD Primary Care Provider [phone] Shalom Renteria MD Unavailable Melissa Melvin-C Unavailable Shalom Renteria MD Primary Care Provider [phone] Malini Anderson-C Unavailable [phone] Melissa Melvin-C Unavailable Encounter Details Date Type Department Care Team (Late st Contact Info) Description 04/24/2022 [facility] [address] 3rd [place] [address] Devika Fleming MD [address] [place] [address] Social History Tobacco Use Types Packs/Day Years Used Date Smoking Tobacco: Never Smokeless Tobacco: Never Alcohol Use Standard Drinks/Week Comments Not Currently 0 (1 standard drink = 0.6 oz pur e alcohol) PHQ-2 Answer Date Recorded PHQ-2 Score 2 02/18/2022 Comments Unknown Sex and Gender Information Value Date Recorded Sex Assigned at Female 02/16/2019 10:59 AM BOARDING HOUSE MANAGER Legal Sex Female 11:51 AM CDT Gender Identity Female 02/16/2019 10:59 AM BOARDING HOUSE MANAGER Sexual Orientation Bisexual 08/08/2023 1: 47 PM CDT documented as of this encounter Plan of Treatment Upcoming Encounters Date Type Department Care Team (Late st Contact Info) Description 10/25/2024 10:15 AM CDT Therapy Visit [address] [address] Alysa Chinchilla MD [employer] [facility] [address] [address] Monica Kellogg, PT [address] [place] [address] 11/08/2024 4:30 PM CDT Office Visit [facility] Internal Medicine [address] 4th [place] [phone] Shalom Renteria MD [address] [place] [address] 11/22/2024 10:15 AM CDT Therapy Visit [address] [address] Alysa Chinchilla MD [employer] [facility] [address] [address] Monica Kellogg, PT [address] [place] [address] 09/09/2025 2:45 PM CDT Office Visit [address] [phone] Malini Anderson PA-C [address] [place] [address] documented as of this encounter Visit Diagnoses Not on filedocumented in this encounter Care Teams Bag Turner Relationship Specialty Start Date End Date Susie Vogt MD PCP - General pick and shovel man 12/29/18 08/07/23 Alysa Chinchilla MD [facility] [address] [place] [address] PCP - General 08/08/23 03/02/24 Shalom Renteria MD [address] [place] [address] PCP - General Internal Medicine 03/03/24 Devika Fleming MD [address] [place] [address] Neurology 10/30/21 Devika Fleming MD [address] [place] [address] Assigned Neuroscience Provider 02/23/22 08/27/23 Shalom Renteria MD [address] [place] [address] Assigned PCP 12/29/23 Melissa Melvin PA-C [address] [place] [address] Physician Biomedical Repair Technician Gastroenterology 03/03/24 Malini Anderson PA-C [address] [place] [address] Physician Biomedical Repair Technician 03/03/24 Melissa Melvin PA-C [address] [place] [address] Assigned Gastroenterology Provider 04/29/24 documented as of this encounter
--- OUTSIDE RECORDS SUMMARY | 2024-09-25 00:54 | XMS_ITS | Encounter Summary ---
Author Organization [facility] Address [address] [place] [address] Care Team Providers Care Manager Neonatal Name Role Phone Susie Vogt MD Primary Care Provider Devika Fleming MD Unavailable [phone] Devika Fleming MD Unavailable [phone] Alysa Chinchilla MD Primary Care Provider [phone] Shalom Renteria MD Unavailable Melissa Melvin PA-C Unavailable Shalom Renteria MD Primary Care Provider [phone] Malini Anderson PA-C Unavailable [phone] Melissa Melvin PA-C Unavailable Encounter Details Date [...] Sex Assigned at Female 02/16/2019 10:59 AM FEED INSPECTION SUPERVISOR Legal Sex Female 11:51 AM CDT Gender Identity Female 02/16/2019 10:59 AM FEED INSPECTION SUPERVISOR Sexual Orientation Bisexual 08/08/2023 1: 47 PM CDT documented as of this encounter Plan of Treatment Upcoming Encounters Date Type Department Care Team (Late st Contact Info) Description 10/25/2024 10:15 AM CDT Therapy Visit [address] [place] [address] Alysa Chinchilla MD [facility] [address] [address] Monica Kellogg, PT [address] [place] [address] 11/08/2024 4:30 PM CDT Office Visit [facility] Internal Medicine [address] 4th [place] [phone] Shalom Renteria MD [address] [place] [address] 11/22/2024 10:15 AM CDT Therapy Visit [address] [place] [address] Alysa Chinchilla MD [employer] [facility] [address] [address] Monica Kellogg, PT [address] [place] [address] 09/09/2025 2:45 PM CDT Office Visit [facility] [address] [phone] Malini Anderson PA-C [address] [place] [address] documented as of this encounter Visit Diagnoses Not on filedocumented in this encounter Care Teams Manager Neonatal Relationship Specialty Start Date End Date Susie Vogt MD PCP - General restaurant crew person 12/29/18 08/07/23 Alysa Chinchilla MD [facility] [address] [place] [address] PCP - General 08/08/23 03/02/24 Shalom Renteria MD [address] [place] [address] PCP - General Internal Medicine 03/03/24 Devika Fleming MD [address] [place] [address] Neurology 10/30/21 Devika Fleming MD [address] [place] [address] 472035 Assigned Neuroscience Provider 02/23/22 08/27/23 Shalom Renteria MD [address] [place] [address] Assigned PCP 12/29/23 Melissa Melvin PA-C [address] [place], [place] [address] Physician Onboarding Specialist Gastroenterology 03/03/24 Malini Anderson PA-C [address] [place] [address] Physician Onboarding Specialist 03/03/24 Melissa Melvin PA-C [address] [place] [address] Assigned Gastroenterology Provider 04/29/24 documented as of this encounter
--- OUTSIDE RECORDS SUMMARY | 2024-09-25 00:54 | XMS_ITS | Encounter Summary ---
Author Organization [facility] Address [address] [place] [address] Care Team Providers Care Paving Foreman Name Role Phone Susie Vogt MD Primary Care Provider [phone] Devika Fleming MD Unavailable [phone] Devika Fleming MD Unavailable [phone] Alysa Chinchilla MD Primary Care Provider [phone] Shalom Renteria MD Unavailable Melissa Melvin-C Unavailable Shalom Renteria MD Primary Care Provider [phone] Malini Anderson-C Unavailable [phone] Melissa Melvin-C Unavailable Encounter Details Date Type Department Care Team (Late st Contact Info) Description 08/14/2022 [facility] [address] 3rd [place] [address] Devika Fleming MD [address] [place] [address] Social History Tobacco Use Types Packs/Day Years Used Date Smoking Tobacco: Never Smokeless Tobacco: Never Alcohol Use Standard Drinks/Week Comments Not Currently 0 (1 standard drink = 0.6 oz pur e alcohol) PHQ-2 Answer Date Recorded PHQ-2 Score 2 02/18/2022 Comments Unknown Sex and Gender Information Value Date Recorded Sex Assigned at Female 02/16/2019 10:59 AM ENERGY CONTROL OFFICER Legal Sex Female 11:51 AM CDT Gender Identity Female 02/16/2019 10:59 AM ENERGY CONTROL OFFICER Sexual Orientation Bisexual 08/08/2023 1: 47 PM CDT documented as of this encounter Plan of Treatment Upcoming Encounters Date Type Department Care Team (Late st Contact Info) Description 10/25/2024 10:15 AM CDT Therapy Visit [address] [address] Alysa Chinchilla MD [employer] [facility] [address] [address] Monica Kellogg, PT [address] [place] [address] 11/08/2024 4:30 PM CDT Office Visit [facility] Internal Medicine [address] 4th [place] [phone] Shalom Renteria MD [address] [place] [address] 11/22/2024 10:15 AM CDT Therapy Visit [address] [address] Alysa Chinchilla MD [employer] [facility] [address] [address] Monica Kellogg, PT [address] [place] [address] 09/09/2025 2:45 PM CDT Office Visit [address] [phone] Malini Anderson PA-C [address] [place] [address] documented as of this encounter Visit Diagnoses Not on filedocumented in this encounter Care Teams Paving Foreman Relationship Specialty Start Date End Date Susie Vogt MD PCP - General motor polarizer 12/29/18 08/07/23 Alysa Chinchilla MD [facility] [address] [place] [address] PCP - General 08/08/23 03/02/24 Shalom Renteria MD [address] [place] [address] PCP - General Internal Medicine 03/03/24 Devika Fleming MD [address] [place] [address] Neurology 10/30/21 Devika Fleming MD [address] [place] [address] Assigned Neuroscience Provider 02/23/22 08/27/23 Shalom Renteria MD [address] [place] [address] Assigned PCP 12/29/23 Melissa Melvin PA-C [address] [place] [address] Physician Provider Education Specialist Gastroenterology 03/03/24 Malini Anderson PA-C [address] [place] [address] Physician Provider Education Specialist 03/03/24 Melissa Melvin PA-C [address] [place] [address] Assigned Gastroenterology Provider 04/29/24 documented as of this encounter
--- OUTSIDE RECORDS SUMMARY | 2024-09-25 00:54 | XMS_ITS | Encounter Summary ---
Author Organization [facility] Address [address] [place] [address] Care Team Providers Care Game Attendant Name Role Phone AjpuneetDevika MD Unavailable [phone] Shalom Renteria MD Unavailable Melissa Melvin PA-C Unavailable Shalom Renteria MD Primary Care Provider [phone] Malini Anderson PA-C Unavailable [phone] Melissa Melvin PA-C Unavailable Reason for Referral * Consultation (Routine: Next available opening) - Pending Review Specialty Diagnoses / Procedures Referred By Edi ayala Referred To Contact Gastroenterology Diagnoses Chronic nausea Alternating constipation and diarrhea Shalom Renteria MD [address] [place] [address] Phone: tel: fax: [address] [address] Phone: tel: Referral ID Status Reason Start Date Expiration Date V isits Requested Visits Authorized [id number] Pending Review 05/17/2024 05/17/2025 1 1 Question Answer Reason for Referral: General GI Patient Scheduling Instructions: [facility] will call you to coordinate your care as prescribed by the provider. If you don t hear from a volunteer patient representative within 2 business days, please call . Additional Information: Natali Mahoney (preferred), or Abhijit Street, or Raul Sepulveda Comments Please be aware that coverage of these services is subject to the terms and limitations of your health insurance plan. Call member services at your health plan with any benefit or coverage questions. [facility] will call you to coordinate your care as prescribed by the provider. If you don t hear from a volunteer patient representative within 2 business days, please call . K MOVING MACHINE OPERATOR Encounter Details Date Type Department Care Team (Latest Contact Info) Description 05/14/2024 MyC Medical Advice [facility] Internal Medicine [address] [address] Shalom Renteria MD [address] [place] [address] Alternating constipation and diarrhea (Primary Dx); [...] in an abandoned building, in an overnight group home, or couch-surfing.) Yes 11/23/2023 Are you worried [...] Sex Assigned at Female 02/16/2019 10:59 AM TRACK MOVING MACHINE OPERATOR Legal Sex Female 11:51 AM CDT Gender Identity Female 02/16/2019 10:59 AM TRACK MOVING MACHINE OPERATOR Sexual Orientation Bisexual 08/08/2023 1: 47 PM CDT documented as of this encounter Miscellaneous Notes * Telephone Encounter - Shalom Renteria MD - 05/17/2024 2:23 PM CST Referral signed. Thanks, Shalom Renteria MD K MOVING MACHINE OPERATOR documented in this encounter Plan of Treatment Upcoming Encounters Date Type Department Care Team (Late st Contact Info) Description 10/25/2024 10:15 AM CDT Therapy Visit [facility] [address] [place] [address] Alysa Chinchilla MD [facility] [address] [address] Monica Kellogg, PT [address] [place] [address] 11/08/2024 4:30 PM CDT Office Visit [facility] Internal Medicine [address] [place] [address] Shalom Renteria MD [address] [place] [address] 11/22/2024 10:15 AM CDT Therapy Visit [facility] [address] [facility] [address] [place] [address] Alysa Chinchilla MD [employer] [facility] [address] [address] Monica Kellogg, PT [address] [place] [address] 09/09/2025 2:45 PM CDT Office Visit [address] [phone] Malini Anderson PA-C [address] [place] [address] Scheduled Referrals Name Type Priority Associated Diagnoses Orde r Schedule Adult GI Field Service Analyst Referral - Consult Only Referral Routine: Next available opening Chronic nausea Alternating constipation and diarrhea Expected: 05/17/2024 (Approximate), Expires: 05/17/2025 documented as of this encounter Visit Diagnoses Diagnosis Alternating constipation and diarrhea- Primary Other symptoms involving digestive system Chronic nausea Nausea alone documented in this encounter Additional Health Concerns Assessment Noted Time PHQ-9 Depression Total Score: 5 04/07/19 25 2:20 PM TRACK MOVING MACHINE OPERATOR documented as of this encounter Care Teams Game Attendant Relationship Specialty Start Date End Date Shalom Renteria MD [address] [place] [address] PCP - General Internal Medicine 03/03/24 Devika Fleming MD [address] [place] [address] Neurology 10/30/21 Shalom Renteria MD [address] [place] [address] Assigned PCP 12/29/23 Melissa Melvin PA-C [address] [place] [address] Physician Hvac Services Professional Gastroenterology 03/03/24 Malini Anderson PA-C [address] [address] Physician Hvac Services Professional 03/03/24 Melissa Melvin PA-C [address] [place] [address] Assigned Gastroenterology Provider 04/29/24 documented as of this encounter
--- OUTSIDE RECORDS SUMMARY | 2024-09-25 00:54 | XMS_ITS | Encounter Summary ---
Author Organization [facility] Address [address] [place] [address] Care Team Providers Care Recyclable Products Sorter Name Role Phone Susie Vogt MD Primary Care Provider Devika Fleming MD Unavailable Devika Fleming MD Unavailable [phone] Devika Fleming MD Unavailable Alysa Chinchilla MD Primary Care Provider [phone] Shalom Renteria MD Unavailable Melissa Melvin PA-C Unavailable Shalom Renteria MD Primary Care Provider [phone] Malini Anderson PA-C Unavailable [phone] Melissa Melvin PA-C Unavailable Reason for Visit * Reason Onset Date Comments Refill Request 07/17/2019 Encounter Details Date Type Department Care Team (Late st Contact Info) Description 07/17/2019 [facility] [address] [place] [address] Devika Fleming MD [address] [place] [address] Refill Request Social History Tobacco Use Types Packs/Day Years Used Date Smoking Tobacco: Never Smokeless Tobacco: Never Alcohol Use Standard Drinks/Week Comments Not Currently 0 (1 standard drink = 0.6 oz pur e alcohol) PHQ-2 Answer Date Recorded PHQ-2 Score 2 02/22/2019 Comments Unknown Sex and Gender Information Value Date Recorded Sex Assigned at Female 02/16/2019 10:59 AM BRINE ROOM LABORER Legal Sex Female 11:51 AM CDT Gender Identity Female 02/16/2019 10:59 AM BRINE ROOM LABORER Sexual Orientation Bisexual 08/08/2023 1: 47 PM CDT documented as of this encounter Plan of Treatment Upcoming Encounters Date Type Department Care Team (Late st Contact Info) Description 10/25/2024 10:15 AM CDT Therapy Visit [address] [address] Alysa Chinchilla MD [employer] [address] [place] [address] Monica Kellogg, PT [address] [place] [address] 11/08/2024 4:30 PM CDT Office Visit [facility] Internal Medicine [address] [phone] Shalom Renteria MD [address] [place] [address] 11/22/2024 10:15 AM CDT Therapy Visit [address] [address] Alysa Chinchilla MD [employer] [facility] [employer] [address] [place] [address] Monica Kellogg, PT [address] [place] [address] 09/09/2025 2:45 PM CDT Office Visit [facility] [address] [phone] Malini Anderson PA-C [address] [address] documented as of this encounter Visit Diagnoses Diagnosis Chronic tension-type headache, intractable Chronic tension type headache Migraine with aura and without status migrainosus, not intractable Migraine with aura, without mention of intractable migraine without mention of status migrainosus documented in this encounter Care Teams Recyclable Products Sorter Relationship Specialty Start Date End Date Susie Vogt MD PCP - General semiconductor lab technician 12/29/18 08/07/23 Alysa Chinchilla MD [facility] [address] [place] [address] PCP - General 08/08/23 03/02/24 Shalom Renteria MD [address] [place] [address] PCP - General Internal Medicine 03/03/24 Devika Fleming MD [address] [place] [address] Assigned Neuroscience Provider 01/28/20 08/26/20 Devika Fleming MD [address] [place] [address] Neurology 10/30/21 Devika Fleming MD [address] [place] [address] Assigned Neuroscience Provider 02/23/22 08/27/23 Shalom Renteria MD [address] [place] [address] Assigned PCP 12/29/23 Melissa Melvin PA-C [address] [address] [place] [address] Physician Story Editor Gastroenterology 03/03/24 Malini Anderson PA-C [address] [place] [address] Physician Story Editor 03/03/24 Melissa Melvin PA-C [address] [facility] [place] [address] Assigned Gastroenterology Provider 04/29/24 documented as of this encounter
--- OUTSIDE RECORDS SUMMARY | 2024-09-25 00:54 | XMS_ITS | Clinical Summary ---
Author Organization [place] Address [address] [place] [address] Care Team Providers Care Field Supervisor Name Role Phone AjpuneetDevika MD Unavailable [phone] Shalom Renteria MD Unavailable Melissa Melvin PA-C Unavailable Shalom Renteria MD Primary Care Provider [phone] Malini Anderson PA-C Unavailable [phone] Melissa Melvin PA-C Unavailable Allergies Active Allergy [...] Description 09/08/2024 2:00 PM CDT Office Visit [address] [address] Shalom Renteria MD Pritchard, Katelyn, PA-C Dermatitis, seborrheic (Primary Dx); Skin cancer screening; Sebaceous hyperplasia; Seborrheic keratosis; Napier angioma; Multiple nevi; Lentigo; Dermatofibroma; Hx of atypical nevus 09/08/2024 Travel 09/03/2024 Travel 08/23/2024 Transcribe Orders GENERIC EXTERNAL DATA DEPARTMENT Alysa Chinchilla MD Classical Chase-Danlos syndrome (Primary Dx) 08/09/2024 10:15 AM CDT Therapy Visit [facility] [address] [place] [address] [address] [place] [address] Alysa Chinchilla MD Gerardi, Monica Ni, PT [...] Sex Assigned at Female 02/16/2019 10:59 AM HVAC LEAD Legal Sex Female 11:51 AM CDT Gender Identity Female 02/16/2019 10:59 AM HVAC LEAD Sexual Orientation Bisexual 08/08/2023 1: 47 PM CDT Last Filed Vital Signs Vital Sign Reading Time Taken Comments Blood Pressure 153/103 04/06/2024 2:40 PM HVAC LEAD Pulse 100 04/06/2024 2:40 PM HVAC LEAD Temperature 36.6 C (97.9 F) 02/28/2024 10:50 AM HVAC LEAD Respiratory Rate 18 02/28/2024 10:50 AM HVAC LEAD Oxygen Saturation 99% 04/06/2024 2:04 PM HVAC LEAD Inhaled Oxygen Concentration - - Weight 109.8 kg (242 lb) 04/06/2024 2:04 PM HVAC LEAD Height 170.2 cm (5' 7.01) 02/28/2024 10:[address] Body Mass Index 37.89 02/28/2024 10:50 AM HVAC LEAD Plan of Treatment Upcoming Encounters Date Type Department Care Team (Late st Contact Info) Description 10/25/2024 10:15 AM CDT Therapy Visit [address] [place] [address] Alysa Chinchilla MD [employer] [address] [address] Monica Kellogg, PT [address] [place] [address] 11/08/2024 4:30 PM CDT Office Visit [facility] Internal Medicine [address] 4th [place] [phone] Shalom Renteria MD [address] [place] [address] 11/22/2024 10:15 AM CDT Therapy Visit [address] [address] Alysa Chinchilla MD [employer] [facility] [address] [address] Monica Kellogg, PT [address] [place] [address] 09/09/2025 2:45 PM CDT Office Visit [facility] [address] [phone] Malini Anderson PA-C [address] [place] [address] Health Maintenance Due Date Last Done Comments [...] COMPREHENSIVE METABOLIC PANEL Routine 04/06/2024 2:50 PM HVAC LEAD Abdominal pain, unspecified abdominal location Loose stools LIPID REFLEX TO DIRECT LDL PANEL Routine 02/28/2024 9:16 AM HVAC LEAD Dyslipidemia PAP SMEAR - HIM PATIENT REPORTED Routine 12/06/2022 from Last 3 Months or Most Recently Relevant to Health Maintenance Results * (ABNORMAL) Comprehensive metabolic panel (BMP + Alb, Alk Phos, ALT, AST, Total. Bili, TP) (04/06/2024 2:50 PM HVAC LEAD) Sodium 143 135 - 145 mmol/L 04/06/2024 3:14 PM HVAC LEAD [facility] Potassium 4.0 3.4 - 5.3 mmol/L 04/06/2024 3:14 PM HVAC LEAD [facility] Carbon Dioxide (CO2) 26 22 - 29 mmol/L 04/06/2024 3:14 PM HVAC LEAD [facility] Anion Gap 12 7 - 15 mmol/L 04/06/2024 3:14 PM HVAC LEAD [facility] Urea Nitrogen 10.4 6.0 - 20.0 mg/dL 04/06/2024 3:14 PM HVAC LEAD [facility] Creatinine 0.86 0.51 - 0.95 mg/dL 04/06/2024 3:14 PM HVAC LEAD [facility] GFR Estimate 88 >60 mL/min/1.7 3m2 04/06/2024 3:14 PM HVAC LEAD [facility] Comment:eGFR calculated us2020 CKD-EPI equation. Calcium 8.9 8.8 - 10.4 mg/dL 04/06/2024 3:14 PM HVAC LEAD [facility] Comment:Reference intervals for this test were updated on 10/21/2023 to reflect our healthy population more accurately. There may be differences in the flagging of prior results with similar values performed with this method. Those prior results can be interpreted in the context of the updated reference intervals. Chloride 105 98 - 107 mmol/L 04/06/2024 3:14 PM HVAC LEAD [facility] Glucose 115(H) 70 - 99 mg/dL 04/06/2024 3:14 PM HVAC LEAD [facility] Alkaline Phosphatase 99 40 - 150 U/L 04/06/2024 3:14 PM HVAC LEAD [facility] AST 33 0 - 45 U/L 04/06/2024 3:14 PM HVAC LEAD [facility] ALT 45 0 - 50 U/L 04/06/2024 3:14 PM HVAC LEAD [facility] Protein Total 7.3 6.4 - 8.3 g/dL 04/06/2024 3:14 PM HVAC LEAD [facility] Albumin 4.3 3.5 - 5.2 g/dL 04/06/2024 3:14 PM HVAC LEAD [facility] Bilirubin Total 0.4 <=1.2 mg/dL 04/06/2024 3:14 PM HVAC LEAD [facility] Blood STRUCTURE OF LEFT UPPER LIMB / Unknown Venipuncture / Unknown 04/06/2024 2:50 PM HVAC LEAD 04/06/2024 2:53 PM HVAC LEAD us Melissa Melvin PA-C LAB - BLOOD ORDERABLES Final Res ult LABORATORY [facility] [place] [address] [place] [address] Lab, [facility] [place] [address], [facility] * (ABNORMAL) Lipid panel reflex to direct LDL Non-fasting (02/28/2024 9:16 AM HVAC LEAD) Cholesterol 234(H) <200 mg/dL 02/28/2024 9:52 AM HVAC LEAD [facility] Triglycerides 272(H) <150 mg/dL 02/28/2024 9:52 AM [facility] - CORE LAB Direct Measure HDL 31(L) >=50 mg/dL 02/28/2024 9:52 AM [facility] - [facility]ORE LAB LDL Cholesterol Calculated 149(H) <100 mg/dL 02/28/2024 9:52 AM [facility] - CORE LAB Non HDL Cholesterol 203(H) <130 mg/dL 02/28/2024 9:52 AM [facility] - CORE LAB Patient Fasting > 8hrs? Yes 02/28/2024 9:52 AM [facility] - CORE LAB Blood STRUCTURE OF LEFT UPPER LIMB / Unknown Venipuncture / Unknown 02/28/2024 9:16 AM HVAC LEAD 02/28/2024 9:17 AM HVAC LEAD Narrative [facility] - 02/28/2024 9:52 AM HVAC LEAD Cholesterol Desirable: < 200 mg/dL Borderline High: [...] LAB - BLOOD ORDERABLES Final Res ult [facility] - [address] 1st [place] [address] * PAP Smear - HIM Patient Reported (12/06/2022) PAP Smear - HIM Patient Reported Unknown EXTERNAL LAB 12/06/2022 Narrative EXTERNAL LAB - 12/06/2022 SEE ENCOUNTER DATED 11/28/23 us Patient Reported LABORATORY Final Result EXTERNAL LAB External Lab from Last 3 Months or Most Recently Relevant to Health Maintenance Insurance BCBS OUT OF STATE BCBS OUT OF STATE Care Teams Field Supervisor Relationship Specialty Start Date End Date Shalom Renteria MD [address] [place] [address] PCP - General Internal Medicine 03/03/24 Devika Fleming MD [address] [place] [address] Neurology 10/30/21 Shalom Renteria MD [address] [place] [address] Assigned PCP 12/29/23 Melissa Melvin PA-C [address] [place] [address] Physician Diesel Maintenance Electrician Gastroenterology 03/03/24 Malini Anderson PA-C [address] [place] [address] Physician Diesel Maintenance Electrician 03/03/24 Melissa Melvin PA-C [address] [facility] [place] [id number] Assigned Gastroenterology Provider 04/29/24
--- OUTSIDE RECORDS SUMMARY | 2024-09-25 00:54 | XMS_ITS | Encounter Summary ---
Author Organization [place] Address [address] [place] [address] Care Team Providers Care Senior Caregiver Name Role Phone Susie Vogt MD Primary Care Provider Devika Fleming MD Unavailable Devika Fleming MD Unavailable [phone] Devika Fleming MD Unavailable Alysa Chinchilla MD Primary Care Provider [phone] Shalom Renteria MD Unavailable Melissa Melvin PA-C Unavailable Shalom Renteria MD Primary Care Provider [phone] Malini Anderson PA-C Unavailable [phone] Melissa Melvin PA-C Unavailable Encounter Details Date Type Department Care Team (Late st Contact Info) Description 06/02/2019 [facility] Medical Advice [facility] Neurology [address] [facility] 3rd [place] [address] Devika Fleming MD 9[address] [place] [address] Social History Tobacco Use Types Packs/Day Years Used Date Smoking Tobacco: Never Smokeless Tobacco: Never Alcohol Use Standard Drinks/Week Comments Not Currently 0 (1 standard drink = 0.6 oz pur e alcohol) PHQ-2 Answer Date Recorded PHQ-2 Score 2 02/22/2019 Comments Unknown Sex and Gender Information Value Date Recorded Sex Assigned at Female 02/16/2019 10:59 AM KETTLEMAN Legal Sex Female 11:51 AM CDT Gender Identity Female 02/16/2019 10:59 AM KETTLEMAN Sexual Orientation Bisexual 08/08/2023 1: 47 PM CDT documented as of this encounter Plan of Treatment Upcoming Encounters Date Type Department Care Team (Late st Contact Info) Description 10/25/2024 10:15 AM CDT Therapy Visit [address] [address] Alysa Chinchilla MD [employer] [facility] [address] [address] Monica Kellogg, PT [address] [place] [address] 11/08/2024 4:30 PM CDT Office Visit [facility] Internal Medicine [address] 4th [place] [address] Shalom Renteria MD [address] [place] [address] 11/22/2024 10:15 AM CDT Therapy Visit [address] [address] Alysa Chinchilla MD [employer] [facility] [address] [address] Monica Kellogg, PT [address] [place] [address] 09/09/2025 2:45 PM CDT Office Visit [address] [place] [address] Malini Anderson PA-C [address] [address] documented as of this encounter Visit Diagnoses Not on filedocumented in this encounter Care Teams Senior Caregiver Relationship Specialty Start Date End Date Susie Vogt MD PCP - General middleware developer 12/29/18 08/07/23 Alysa Chinchilla MD [facility] [address] [place] [address] PCP - General 08/08/23 03/02/24 Shalom Renteria MD [address] [place] [address] PCP - General Internal Medicine 03/03/24 Devika Fleming MD [address] [place] [address] Assigned Neuroscience Provider 01/28/20 08/26/20 Devika Fleming MD [address] [place] [address] Neurology 10/30/21 Devika Fleming MD [address] [place] [address] Assigned Neuroscience Provider 02/23/22 08/27/23 Shalom Renteria MD [address] [place] [address] Assigned PCP 12/29/23 Melissa Melvin PA-C [address] [place] [address] Physician Rod Buster Gastroenterology 03/03/24 Malini Anderson PA-C [address] [place] [address] Physician Rod Buster 03/03/24 Melissa Melvin PA-C [address] [place] [address] Assigned Gastroenterology Provider 04/29/24 documented as of this encounter
--- OUTSIDE RECORDS SUMMARY | 2024-09-25 00:54 | XMS_ITS | Encounter Summary ---
Author Organization [place] Address [address] [place] [address] Care Team Providers Care Garnett Machine Operator Helper Name Role Phone AjpuneetDevika MD Unavailable [phone] Alysa Chinchilla MD Primary Care Provider [phone] Shalom Renteria MD Unavailable Melissa Melvin-C Unavailable Shalom Renteria MD Primary Care Provider [phone] Malini Anderson-C Unavailable [phone] Melissa Melvin-C Unavailable Encounter Details Date Type Department Care Team (Late st Contact Info) Description 12/29/2023 [facility] [address] [place] [address] [address] [place] [address] Kmiberly Suh, PT [address] [place] [address] Social History Tobacco Use Types Packs/Day Years [...] Sex Assigned at Female 02/16/2019 10:59 AM END POLISHER Legal Sex Female 11:51 AM CDT Gender Identity Female 02/16/2019 10:59 AM END POLISHER Sexual Orientation Bisexual 08/08/2023 1: 47 PM CDT documented as of this encounter Plan of Treatment Upcoming Encounters Date Type Department Care Team (Late st Contact Info) Description 10/25/2024 10:15 AM CDT Therapy Visit [facility] Rehabilitation Services [address] [place] [address] Alysa Chinchilla MD [employer] [address] [address] Monica Kellogg, PT [address] [place] [address] 11/08/2024 4:30 PM CDT Office Visit [facility] Internal Medicine [address] 4th [place] [phone] Shalom Renteria MD 909 [place] [address] 11/22/2024 10:15 AM CDT Therapy Visit [facility] [address] [facility] [address] [place] [address] Alysa Chinchilla MD [employer] [facility] [address] [place] [address] Monica Kellogg, PT 909 [place] [address] 09/09/2025 2:45 PM CDT Office Visit [address] [phone] Malini Anderson PA-C [address] [place] [address] documented as of this encounter Visit Diagnoses Not on filedocumented in this encounter Additional Health Concerns Assessment Noted Time PHQ-9 Depression Total Score: 9 11/28/19 24 12:43 PM CDT documented as of this encounter Care Teams Garnett Machine Operator Helper Relationship Specialty Start Date End Date Alysa Chinchilla MD [employer] [facility] [address] [place] [address] PCP - General 08/08/23 03/02/24 Shalom Renteria MD [address] [place] [address] PCP - General Internal Medicine 03/03/24 Devika Fleming MD [address] [place] [address] Neurology 10/30/21 Shalom Renteria MD 9[address] [place] [address] Assigned PCP 12/29/23 Melissa Melvin PA-C [address] [place] [address] Physician Rn Recruitment Gastroenterology 03/03/24 Malini Anderson PA-C [address] [address] Physician Rn Recruitment 03/03/24 Melissa Melvin PA-C [address] [place] [address] Assigned Gastroenterology Provider 04/29/24 documented as of this encounter
--- OUTSIDE RECORDS SUMMARY | 2024-09-25 00:55 | XMS_ITS | Encounter Summary ---
Author Organization [place] Address [address] [place] [address] Care Team Providers Care Material Processor Name Role Phone AjpuneetDevika MD Unavailable [phone] Shalom Renteria MD Unavailable Melissa Melvin PA-C Unavailable Shalom Renteria MD Primary Care Provider [phone] Malini Anderson PA-C Unavailable [phone] Melissa Melvin PA-C Unavailable Encounter Details Date [...] in an abandoned building, in an overnight long term, or couch-surfing.) Yes 11/23/2023 Are you worried [...] Assigned at Female 02/16/2019 10:59 AM DIRECTOR OF FRONT OFFICE Legal Sex Female 11:51 AM CDT Gender Identity Female 02/16/2019 10:59 AM DIRECTOR OF FRONT OFFICE Sexual Orientation Bisexual 08/08/2023 1: 47 PM CDT documented as of this encounter Plan of Treatment Upcoming Encounters Date Type Department Care Team (Late st Contact Info) Description 10/25/2024 10:15 AM CDT Therapy Visit [facility] Rehabilitation Services [address] [place] [address] lAysa Chinchilla MD [employer] [address] [address] Monica Kellogg, PT [address] [place] [address] 11/08/2024 4:30 PM CDT Office Visit [facility] Internal Medicine [address] 4th [place] [address] Shalom Renteria MD 909 [place] [address] 11/22/2024 10:15 AM CDT Therapy Visit [facility] [address] [facility] [address] [place] [address] Alysa Chinchilla MD [address] [address] Monica Kellgog, PT 909 [place] [address] 09/09/2025 2:45 PM CDT Office Visit [address] [phone] Malini Anderson PA-C [address] [place] [address] documented as of this encounter Visit Diagnoses Not on filedocumented in this encounter Additional Health Concerns Assessment Noted Time PHQ-9 Depression Total Score: 5 04/07/19 25 2:20 PM DIRECTOR OF FRONT OFFICE documented as of this encounter Care Teams Material Processor Relationship Specialty Start Date End Date Shalom Renteria MD [address] [place] [address] PCP - General Internal Medicine 03/03/24 Devika Fleming MD [address] [place] [address] Neurology 10/30/21 Shalom Renteria MD [address] [place] [address] Assigned PCP 12/29/23 Melissa Melvin PA-C [address] [place] [address] Physician Facialist Gastroenterology 03/03/24 Malini Anderson PA-C [address] [place] [address] Physician Facialist 03/03/24 Melissa Melvin PA-C [address] [place] [address] Assigned Gastroenterology Provider 04/29/24 documented as of this encounter
--- OUTSIDE RECORDS SUMMARY | 2024-09-25 00:55 | XMS_ITS | Encounter Summary ---
Author Organization [place] Address [address] [place] [address] Care Team Providers Care Business Education Professor Name Role Phone AjpuneetDevika MD Unavailable [phone] Shalom Renteria MD Unavailable Melissa Melvin PA-C Unavailable Shalom Renteria MD Primary Care Provider [phone] Malini Anderson PA-C Unavailable [phone] Melissa Melvin PA-C Unavailable Reason for Referral * Rehab Therapy Physical Therapy (Routine) - Pending Review Specialty Diagnoses / Procedures Referred By Edi ayala Referred To Contact Diagnoses Classical Chase-Danlos syndrome Alysa Chinchilla MD [address] [address] Phone: tel: fax: Referral ID Status Reason Start Date Expiration Date V isits Requested Visits Authorized [id number] Pending Review 08/23/2024 08/23/2025 1 1 Question Answer Course of Action: Evaluation and Treatment Specialty Services: Per Associated Diagnosis Patient Scheduling Instructions: [facility] will call you to coordinate your care as prescribed by your provider. If you don't hear from a manufacturers service representative within 2 business days, please call . Does central scheduling need to contact this patient to schedule? No Comments Please be aware that coverage of these services is subject to the terms and limitations of your health insurance plan. Call member services at your health plan with any benefit or coverage questions. [facility] will call you to coordinate your care as prescribed by your provider. If you don't hear from a manufacturers service representative within 2 business days, please call . Encounter Details Date Type Department Care Team (Late st Contact Info) Description 08/23/2024 Transcribe Orders GENERIC EXTERNAL DATA DEPARTMENT Alysa Chinchilla MD [employer] [address] [address] Classical Chase-Danlos syndrome (Primary Dx) Social History [...] Sex Assigned at Female 02/16/2019 10:59 AM SALES AND SERVICE REPRESENTATIVE Legal Sex Female 11:51 AM CDT Gender Identity Female 02/16/2019 10:59 AM SALES AND SERVICE REPRESENTATIVE Sexual Orientation Bisexual 08/08/2023 1: 47 PM CDT documented as of this encounter Plan of Treatment Upcoming Encounters Date Type Department Care Team (Late st Contact Info) Description 10/25/2024 10:15 AM CDT Therapy Visit [address] [address] Alysa Chinchilla MD [employer] [address] [place] [address] Monica Kellogg, PT [address] [place] [address] 11/08/2024 4:30 PM CDT Office Visit [facility] Internal Medicine [address] [place] [phone] Shalom Renteria MD [address] [place] [address] 11/22/2024 10:15 AM CDT Therapy Visit [address] [address] Alysa Chinchilla MD [employer] [facility] [address] [address] [place] Monica Ni, PT 909 [place] [address] 09/09/2025 2:45 PM CDT Office Visit [facility] [address] [phone] Malini Anderson PA-C [address] [place] [address] Scheduled Referrals Name Type Priority Associated Diagnoses Orde r Schedule Physical Therapy Pipelines Laborer Referral Referral Routine Classical Chase-Danlos syndrome Ordered: 08/23/2024 documented as of this encounter Visit Diagnoses Diagnosis Classical Chase-Danlos syndrome- Primary documented in this encounter Additional Health Concerns Assessment Noted Time PHQ-9 Depression Total Score: 5 04/07/19 25 2:20 PM SALES AND SERVICE REPRESENTATIVE documented as of this encounter Care Teams Business Education Professor Relationship Specialty Start Date End Date Shalom Renteria MD [address] [place] [address] PCP - General Internal Medicine 03/03/24 Devika Fleming MD [address] [place] [address] Neurology 10/30/21 Shalom Renteria MD [address] [place] [address] Assigned PCP 12/29/23 Melissa Melvin PA-C [address] [facility] [place] [place] [address] Physician Wire Mesh Filter Fabricator Gastroenterology 03/03/24 Malini Anderson PA-C [address] [place] [address] Physician Wire Mesh Filter Fabricator 03/03/24 Melissa Melvin PA-C [address] [place], [place] [address] Assigned Gastroenterology Provider 04/29/24 documented as of this encounter
--- OUTSIDE RECORDS SUMMARY | 2024-09-25 00:55 | XMS_ITS | Encounter Summary ---
Author Organization [place] Address [address] [place] [address] Care Team Providers Care Precision Lens Grinder Apprentice Name Role Phone AjpuneetDevika MD Unavailable [phone] Shalom Renteria MD Unavailable Melissa Melvin PA-C Unavailable Shalom Renteria MD Primary Care Provider [phone] Malini Anderson PA-C Unavailable [phone] Melissa Melvin PA-C Unavailable Encounter Details Date [...] Sex Assigned at Female 02/16/2019 10:59 AM TUNGSTEN REFINER Legal Sex Female 11:51 AM CDT Gender Identity Female 02/16/2019 10:59 AM TUNGSTEN REFINER Sexual Orientation Bisexual 08/08/2023 1: 47 PM CDT documented as of this encounter Plan of Treatment Upcoming Encounters Date Type Department Care Team (Late st Contact Info) Description 10/25/2024 10:15 AM CDT Therapy Visit [facility] Rehabilitation Services [address] [place] [address] Alysa Chinchilla MD [employer] [address] [address] Monica Kellogg, PT [address] [place] [address] 11/08/2024 4:30 PM CDT Office Visit [facility] Internal Medicine [address] 4th [place] [address] Shalom Renteria MD 909 [place] [address] 11/22/2024 10:15 AM CDT Therapy Visit [facility] [address] [facility] [address] [place] [address] Alysa Chinchilla MD [address] [address] Monica Kellogg, PT 909 [place] [address] 09/09/2025 2:45 PM CDT Office Visit [address] [phone] Malini Anderson PA-C [address] [place] [address] documented as of this encounter Visit Diagnoses Not on filedocumented in this encounter Additional Health Concerns Assessment Noted Time PHQ-9 Depression Total Score: 5 04/07/19 25 2:20 PM TUNGSTEN REFINER documented as of this encounter Care Teams Precision Lens Grinder Apprentice Relationship Specialty Start Date End Date Shalom Renteria MD [address] [place] [address] PCP - General Internal Medicine 03/03/24 Devika Fleming MD [address] [place] [address] Neurology 10/30/21 Shalom Renteria MD [address] [place] [address] Assigned PCP 12/29/23 Melissa Melvin PA-C [address] [place] [address] Physician Department Clerk Gastroenterology 03/03/24 Malini Anderson PA-C [address] [place] [address] Physician Department Clerk 03/03/24 Melissa Melvin PA-C [address] [place] [address] Assigned Gastroenterology Provider 04/29/24 documented as of this encounter
== END 2024-09-24 09:07 | disposition home or self-care (01) ==
PROVIDERS: PCP Family Medicine; Referring Provider Family Medicine; Visit Provider Obstetrics & Gynecology
DX: N63.20 Unspecified lump in the left breast, unspecified quadrant (principal); R92.8 Other abnormal and inconclusive findings on diagnostic imaging of breast
CPT/HCPCS: 19083; 19084; 77065; 88305; A4648; A4649

== ENCOUNTER 2025-01-21 08:00 | Outpatient (RCR) | payer BC, SELFPAY ==
[2024-07-26 10:26] VITALS: BP 122/85; PULSE 112; RESP 16; TEMP 36.2; O2SAT 96
[2024-07-26] MEDS: SODIUM CHLORIDE 0.9 % (FLUSH) 10 ML SYRINGE IVF ×2 (10:40→11:43)
[2024-07-26] MEDS: HEPARIN 500 UNIT/5 ML SYRINGE IVF (11:43)
[2024-07-30] MEDS: SODIUM CHLORIDE 0.9 % (FLUSH) 10 ML SYRINGE IVF ×2 (08:20→09:35)
[2024-07-30 08:35] VITALS: BP 124/85; PULSE 87; RESP 20; TEMP 36.5; O2SAT 96
[2024-07-30] MEDS: HEPARIN 500 UNIT/5 ML SYRINGE IVF (09:36)
[2024-08-02 14:34] VITALS: BP 128/72; PULSE 97; RESP 20; TEMP 36.1; O2SAT 97
[2024-08-02] MEDS: SODIUM CHLORIDE 0.9 % (FLUSH) 10 ML SYRINGE IVF ×2 (14:49→15:55)
[2024-08-02] MEDS: HEPARIN 500 UNIT/5 ML SYRINGE IVF (15:55)
[2024-08-06 08:06] VITALS: BP 109/75; PULSE 106; RESP 16; TEMP 36.8; O2SAT 96
[2024-08-06] MEDS: SODIUM CHLORIDE 0.9 % (FLUSH) 10 ML SYRINGE IVF (08:09)
[2024-08-06] MEDS: HEPARIN 500 UNIT/5 ML SYRINGE IVF (08:09)
[2024-08-09 14:40] VITALS: BP 126/87; PULSE 96; RESP 18; TEMP 35.6; O2SAT 97
[2024-08-09] MEDS: SODIUM CHLORIDE 0.9 % (FLUSH) 10 ML SYRINGE IVF ×2 (15:05→16:04)
[2024-08-09] MEDS: HEPARIN 500 UNIT/5 ML SYRINGE IVF (16:03)
[2024-08-13 08:10] VITALS: BP 111/77; PULSE 95; RESP 18; TEMP 36.9; O2SAT 97
[2024-08-13] MEDS: SODIUM CHLORIDE 0.9 % (FLUSH) 10 ML SYRINGE IVF ×2 (08:23→09:25)
[2024-08-13] MEDS: HEPARIN 500 UNIT/5 ML SYRINGE IVF (09:25)
[2024-08-16] MEDS: SODIUM CHLORIDE 0.9 % (FLUSH) 10 ML SYRINGE IVF (10:21)
[2024-08-16] MEDS: HEPARIN 500 UNIT/5 ML SYRINGE IVF (10:21)
[2024-08-18] MEDS: SODIUM CHLORIDE 0.9 % (FLUSH) 10 ML SYRINGE IVF ×2 (14:14→15:20)
[2024-08-18] MEDS: HEPARIN 500 UNIT/5 ML SYRINGE IVF (15:21)
[2024-08-20] MEDS: SODIUM CHLORIDE 0.9 % (FLUSH) 10 ML SYRINGE IVF ×2 (14:12→15:05)
[2024-08-20 14:21] VITALS: BP 117/87; PULSE 116; RESP 18; TEMP 36.8; O2SAT 97
[2024-08-20] MEDS: HEPARIN 500 UNIT/5 ML SYRINGE IVF (15:04)
[2024-08-23 12:06] VITALS: BP 121/85; PULSE 100; RESP 19; TEMP 36.8; O2SAT 97
[2024-08-23] MEDS: SODIUM CHLORIDE 0.9 % (FLUSH) 10 ML SYRINGE IVF ×2 (12:21→13:30)
[2024-08-23] MEDS: HEPARIN 500 UNIT/5 ML SYRINGE IVF (13:30)
[2024-08-27 08:08] VITALS: BP 92/67; PULSE 107; RESP 17; TEMP 36.7; O2SAT 96
[2024-08-27] MEDS: SODIUM CHLORIDE 0.9 % (FLUSH) 10 ML SYRINGE IVF ×2 (08:12→09:16)
[2024-08-27] MEDS: HEPARIN 500 UNIT/5 ML SYRINGE IVF (09:16)
[2024-08-31 14:07] VITALS: BP 124/83; PULSE 92; RESP 18; TEMP 36.8; O2SAT 100
[2024-08-31] MEDS: SODIUM CHLORIDE 0.9 % (FLUSH) 10 ML SYRINGE IVF ×2 (14:15→15:27)
[2024-08-31] MEDS: HEPARIN 500 UNIT/5 ML SYRINGE IVF (15:27)
[2024-09-03 14:04] VITALS: BP 132/86; PULSE 100; RESP 15; TEMP 36.4; O2SAT 97
[2024-09-03] MEDS: SODIUM CHLORIDE 0.9 % (FLUSH) 10 ML SYRINGE IVF ×2 (14:11→15:17)
[2024-09-03] MEDS: HEPARIN 500 UNIT/5 ML SYRINGE IVF (15:19)
[2024-09-06] MEDS: SODIUM CHLORIDE 0.9 % (FLUSH) 10 ML SYRINGE IVF ×2 (09:44→10:49)
[2024-09-06] MEDS: HEPARIN 500 UNIT/5 ML SYRINGE IVF (10:49)
[2024-09-08 08:36] VITALS: BP 122/80; PULSE 104; TEMP 36.1; O2SAT 97
[2024-09-08] MEDS: SODIUM CHLORIDE 0.9 % (FLUSH) 10 ML SYRINGE IVF ×2 (08:40→09:52)
[2024-09-08] MEDS: HEPARIN 500 UNIT/5 ML SYRINGE IVF (09:51)
[2024-09-10 13:08] VITALS: BP 107/75; PULSE 104; TEMP 36.8; O2SAT 97
[2024-09-10] MEDS: SODIUM CHLORIDE 0.9 % (FLUSH) 10 ML SYRINGE IVF ×2 (13:18→14:27)
[2024-09-10] MEDS: HEPARIN 500 UNIT/5 ML SYRINGE IVF (14:28)
[2024-09-13 14:10] VITALS: BP 112/78; PULSE 77; RESP 16; TEMP 37; O2SAT 97
[2024-09-13] MEDS: SODIUM CHLORIDE 0.9 % (FLUSH) 10 ML SYRINGE IVF ×2 (14:31→15:34)
[2024-09-13] MEDS: HEPARIN 500 UNIT/5 ML SYRINGE IVF (15:34)
[2024-09-15 14:07] VITALS: BP 118/74; PULSE 126; RESP 18; TEMP 36.6; O2SAT 100
[2024-09-15] MEDS: SODIUM CHLORIDE 0.9 % (FLUSH) 10 ML SYRINGE IVF ×2 (14:17→15:21)
[2024-09-15] MEDS: HEPARIN 500 UNIT/5 ML SYRINGE IVF (15:21)
[2024-09-17 14:05] VITALS: BP 119/84; PULSE 97; RESP 16; TEMP 36.4; O2SAT 98
[2024-09-17] MEDS: SODIUM CHLORIDE 0.9 % (FLUSH) 10 ML SYRINGE IVF ×2 (14:14→15:20)
[2024-09-17] MEDS: HEPARIN 500 UNIT/5 ML SYRINGE IVF (15:20)
[2024-09-20 14:16] VITALS: BP 114/77; PULSE 112; RESP 17; TEMP 37.3; O2SAT 95
[2024-09-20] MEDS: SODIUM CHLORIDE 0.9 % (FLUSH) 10 ML SYRINGE IVF ×2 (14:29→15:35)
[2024-09-20] MEDS: HEPARIN 500 UNIT/5 ML SYRINGE IVF (15:35)
--- NOTE | 2024-09-22 13:33 | ONC.NURNOTE ---
Patient left voicemail that she did not feel well enough to come in today for IVF. Did confirm she will be here for Friday's IVF appt.
[2024-09-24 14:04] VITALS: BP 127/83; PULSE 103; RESP 18; TEMP 36.5; O2SAT 97
[2024-09-24] MEDS: SODIUM CHLORIDE 0.9 % (FLUSH) 10 ML SYRINGE IVF ×2 (14:11→15:16)
[2024-09-24] MEDS: HEPARIN 500 UNIT/5 ML SYRINGE IVF (15:16)
[2024-09-27] MEDS: SODIUM CHLORIDE 0.9 % (FLUSH) 10 ML SYRINGE IVF ×2 (12:38→13:43)
[2024-09-27 12:40] VITALS: BP 110/72; PULSE 106; RESP 17; TEMP 36.4; O2SAT 96
[2024-09-27] MEDS: HEPARIN 500 UNIT/5 ML SYRINGE IVF (13:43)
[2024-09-29] MEDS: SODIUM CHLORIDE 0.9 % (FLUSH) 10 ML SYRINGE IVF ×2 (13:25→14:25)
[2024-09-29] MEDS: HEPARIN 500 UNIT/5 ML SYRINGE IVF (14:25)
[2024-10-01 13:41] VITALS: BP 150/105; PULSE 106; RESP 20; O2SAT 98
[2024-10-01] MEDS: SODIUM CHLORIDE 0.9 % (FLUSH) 10 ML SYRINGE IVF ×2 (13:45→14:52)
[2024-10-01] MEDS: HEPARIN 500 UNIT/5 ML SYRINGE IVF (14:52)
[2024-10-04] MEDS: SODIUM CHLORIDE 0.9 % (FLUSH) 10 ML SYRINGE IVF ×2 (13:51→15:00)
[2024-10-04] MEDS: HEPARIN 500 UNIT/5 ML SYRINGE IVF (15:00)
[2024-10-07 13:36] VITALS: BP 122/89; PULSE 95; TEMP 36.8; O2SAT 96
[2024-10-07] MEDS: SODIUM CHLORIDE 0.9 % (FLUSH) 10 ML SYRINGE IVF ×2 (14:01→15:08)
[2024-10-07] MEDS: HEPARIN 500 UNIT/5 ML SYRINGE IVF (15:08)
[2024-10-11 09:21] VITALS: BP 111/70; PULSE 98; TEMP 36.7; O2SAT 97
[2024-10-11] MEDS: SODIUM CHLORIDE 0.9 % (FLUSH) 10 ML SYRINGE IVF ×2 (09:42→10:46)
[2024-10-11] MEDS: HEPARIN 500 UNIT/5 ML SYRINGE IVF (10:46)
[2024-10-15 13:39] VITALS: BP 124/85; PULSE 104; RESP 17; TEMP 36.7; O2SAT 97
[2024-10-15] MEDS: SODIUM CHLORIDE 0.9 % (FLUSH) 10 ML SYRINGE IVF ×2 (13:42→14:47)
[2024-10-15] MEDS: HEPARIN 500 UNIT/5 ML SYRINGE IVF (14:47)
[2024-10-18 09:07] VITALS: BP 122/80; PULSE 93; RESP 16; TEMP 36.4; O2SAT 95
[2024-10-18] MEDS: SODIUM CHLORIDE 0.9 % (FLUSH) 10 ML SYRINGE IVF ×2 (09:25→10:35)
[2024-10-18] MEDS: HEPARIN 500 UNIT/5 ML SYRINGE IVF (10:35)
[2024-10-20] MEDS: SODIUM CHLORIDE 0.9 % (FLUSH) 10 ML SYRINGE IVF ×2 (14:20→15:26)
[2024-10-20 14:22] VITALS: BP 135/87; PULSE 100; RESP 16; TEMP 36.6; O2SAT 98
[2024-10-20] MEDS: HEPARIN 500 UNIT/5 ML SYRINGE IVF (15:26)
[2024-10-22 09:36] VITALS: BP 156/84; PULSE 94; RESP 17; TEMP 36.6; O2SAT 98
[2024-10-22] MEDS: SODIUM CHLORIDE 0.9 % (FLUSH) 10 ML SYRINGE IVF ×2 (09:44→10:50)
[2024-10-22] MEDS: HEPARIN 500 UNIT/5 ML SYRINGE IVF (10:50)
[2024-10-25 14:04] VITALS: BP 109/75; PULSE 98; RESP 16; TEMP 36.4; O2SAT 99
[2024-10-25] MEDS: SODIUM CHLORIDE 0.9 % (FLUSH) 10 ML SYRINGE IVF ×2 (14:20→15:25)
[2024-10-25] MEDS: HEPARIN 500 UNIT/5 ML SYRINGE IVF (15:25)
[2024-10-27 09:18] VITALS: BP 122/90; PULSE 96; TEMP 36.3; O2SAT 97
[2024-10-27] MEDS: HEPARIN 500 UNIT/5 ML SYRINGE IVF (10:54)
[2024-10-29] MEDS: SODIUM CHLORIDE 0.9 % (FLUSH) 10 ML SYRINGE IVF ×2 (14:13→15:03)
[2024-10-29 14:16] VITALS: BP 143/86; PULSE 99; RESP 16; TEMP 36.9; O2SAT 97
[2024-10-29] MEDS: HEPARIN 500 UNIT/5 ML SYRINGE IVF (15:02)
[2024-11-01] MEDS: SODIUM CHLORIDE 0.9 % (FLUSH) 10 ML SYRINGE IVF ×2 (08:13→09:11)
[2024-11-01 08:14] VITALS: BP 121/81; PULSE 93; RESP 16; O2SAT 96
[2024-11-01] MEDS: HEPARIN 500 UNIT/5 ML SYRINGE IVF (09:11)
[2024-11-03 12:06] VITALS: BP 121/89; PULSE 91; RESP 17; TEMP 37; O2SAT 97
[2024-11-03] MEDS: SODIUM CHLORIDE 0.9 % (FLUSH) 10 ML SYRINGE IVF ×2 (12:15→13:05)
[2024-11-03] MEDS: HEPARIN 500 UNIT/5 ML SYRINGE IVF (13:05)
[2024-11-05] MEDS: SODIUM CHLORIDE 0.9 % (FLUSH) 10 ML SYRINGE IVF ×2 (10:10→11:12)
[2024-11-05 10:25] VITALS: BP 115/82; PULSE 88; RESP 16; TEMP 36.3; O2SAT 99
[2024-11-05] MEDS: HEPARIN 500 UNIT/5 ML SYRINGE IVF (11:12)
[2024-11-08 13:13] VITALS: BP 118/84; PULSE 80; RESP 18; TEMP 36.6; O2SAT 97
[2024-11-08] MEDS: SODIUM CHLORIDE 0.9 % (FLUSH) 10 ML SYRINGE IVF ×2 (13:19→14:11)
[2024-11-08] MEDS: HEPARIN 500 UNIT/5 ML SYRINGE IVF (14:11)
[2024-11-10 13:10] VITALS: BP 125/89; PULSE 111; RESP 18; TEMP 36.6; O2SAT 97
[2024-11-10] MEDS: SODIUM CHLORIDE 0.9 % (FLUSH) 10 ML SYRINGE IVF ×2 (13:20→14:20)
[2024-11-10] MEDS: HEPARIN 500 UNIT/5 ML SYRINGE IVF (14:47)
[2024-11-12] MEDS: SODIUM CHLORIDE 0.9 % (FLUSH) 10 ML SYRINGE IVF ×2 (09:46→10:50)
[2024-11-12 10:00] VITALS: BP 110/70; PULSE 100; RESP 16; TEMP 36.1; O2SAT 98
[2024-11-12] MEDS: HEPARIN 500 UNIT/5 ML SYRINGE IVF (10:49)
[2024-11-15 14:11] VITALS: BP 125/84; PULSE 96; RESP 16; TEMP 36.9; O2SAT 99
[2024-11-15] MEDS: HEPARIN 500 UNIT/5 ML SYRINGE IVF (15:03)
[2024-11-17 13:13] VITALS: BP 127/95; PULSE 104; TEMP 36.5; O2SAT 99
[2024-11-17] MEDS: SODIUM CHLORIDE 0.9 % (FLUSH) 10 ML SYRINGE IVF (13:26)
[2024-11-17] MEDS: HEPARIN 500 UNIT/5 ML SYRINGE IVF (13:27)
[2024-11-19] MEDS: SODIUM CHLORIDE 0.9 % (FLUSH) 10 ML SYRINGE IVF ×2 (13:21→14:29)
[2024-11-19] MEDS: HEPARIN 500 UNIT/5 ML SYRINGE IVF (14:29)
[2024-11-19 15:23] VITALS: BP 124/79; PULSE 90; RESP 16; TEMP 36.5; O2SAT 99
[2024-11-26 12:33] VITALS: BP 123/87; PULSE 98; RESP 17; TEMP 36.7; O2SAT 99
[2024-11-26] MEDS: SODIUM CHLORIDE 0.9 % (FLUSH) 10 ML SYRINGE IVF ×2 (12:47→13:53)
[2024-11-26] MEDS: HEPARIN 500 UNIT/5 ML SYRINGE IVF (13:53)
[2024-11-29 10:10] VITALS: BP 125/82; PULSE 101; RESP 17; TEMP 36.7; O2SAT 98
[2024-11-29] MEDS: SODIUM CHLORIDE 0.9 % (FLUSH) 10 ML SYRINGE IVF ×2 (10:14→11:16)
[2024-11-29] MEDS: HEPARIN 500 UNIT/5 ML SYRINGE IVF (11:16)
[2024-12-03] MEDS: SODIUM CHLORIDE 0.9 % (FLUSH) 10 ML SYRINGE IVF ×2 (14:19→15:09)
[2024-12-03] MEDS: HEPARIN 500 UNIT/5 ML SYRINGE IVF (15:09)
[2024-12-06] MEDS: SODIUM CHLORIDE 0.9 % (FLUSH) 10 ML SYRINGE IVF (15:19)
[2024-12-06] MEDS: HEPARIN 500 UNIT/5 ML SYRINGE IVF (15:19)
[2024-12-10 08:11] VITALS: PULSE 90; RESP 16; TEMP 36.6; O2SAT 97
[2024-12-10] MEDS: SODIUM CHLORIDE 0.9 % (FLUSH) 10 ML SYRINGE IVF (08:29)
[2024-12-10] MEDS: HEPARIN 500 UNIT/5 ML SYRINGE IVF (08:29)
[2024-12-13 08:35] VITALS: BP 113/78; PULSE 90; RESP 17; TEMP 36.5; O2SAT 96
[2024-12-13] MEDS: SODIUM CHLORIDE 0.9 % (FLUSH) 10 ML SYRINGE IVF ×2 (08:40→09:30)
[2024-12-13] MEDS: HEPARIN 500 UNIT/5 ML SYRINGE IVF (09:30)
[2024-12-17 08:09] VITALS: BP 117/82; PULSE 88; RESP 16; TEMP 36.6; O2SAT 100
[2024-12-17] MEDS: SODIUM CHLORIDE 0.9 % (FLUSH) 10 ML SYRINGE IVF (08:15)
[2024-12-17] MEDS: HEPARIN 500 UNIT/5 ML SYRINGE IVF (08:15)
[2024-12-20 08:08] VITALS: BP 111/79; PULSE 82; RESP 16; TEMP 36.2; O2SAT 98
[2024-12-20] MEDS: SODIUM CHLORIDE 0.9 % (FLUSH) 10 ML SYRINGE IVF ×2 (08:26→09:17)
[2024-12-20] MEDS: HEPARIN 500 UNIT/5 ML SYRINGE IVF (09:17)
[2024-12-24 08:10] VITALS: BP 118/80; PULSE 97; RESP 16; TEMP 36.4; O2SAT 97
[2024-12-24] MEDS: HEPARIN 500 UNIT/5 ML SYRINGE 250 UNIT IVF (09:30)
[2024-12-24] MEDS: SODIUM CHLORIDE 0.9 % (FLUSH) 10 ML SYRINGE IVF (09:30)
[2024-12-27 13:08] VITALS: BP 131/91; PULSE 99; RESP 16; TEMP 36.5; O2SAT 96
[2024-12-27] MEDS: SODIUM CHLORIDE 0.9 % (FLUSH) 10 ML SYRINGE IVF (13:22)
[2024-12-27] MEDS: HEPARIN 500 UNIT/5 ML SYRINGE 250 UNIT IVF (14:06)
[2024-12-31 08:10] VITALS: BP 114/77; PULSE 83; RESP 16; TEMP 36.6; O2SAT 98
[2024-12-31] MEDS: SODIUM CHLORIDE 0.9 % (FLUSH) 10 ML SYRINGE IVF (08:12)
[2024-12-31] MEDS: HEPARIN 500 UNIT/5 ML SYRINGE 250 UNIT IVF (08:12)
[2024-12-31 09:19] VITALS: BP 148/84; PULSE 75; RESP 16; TEMP 36.3; O2SAT 100
[2025-01-03 11:57] VITALS: BP 137/84; PULSE 93; RESP 16; TEMP 36.7; O2SAT 98
[2025-01-03] MEDS: SODIUM CHLORIDE 0.9 % (FLUSH) 10 ML SYRINGE IVF ×2 (12:07→13:00)
[2025-01-03] MEDS: HEPARIN 500 UNIT/5 ML SYRINGE 250 UNIT IVF (13:00)
[2025-01-07 08:13] VITALS: BP 135/84; PULSE 96; RESP 16; TEMP 36.6; O2SAT 98
[2025-01-07] MEDS: SODIUM CHLORIDE 0.9 % (FLUSH) 10 ML SYRINGE IVF (08:18)
[2025-01-07] MEDS: HEPARIN 500 UNIT/5 ML SYRINGE 250 UNIT IVF (08:18)
[2025-01-10 13:37] VITALS: BP 131/84; PULSE 100; RESP 17; TEMP 36.6; O2SAT 98
[2025-01-10] MEDS: SODIUM CHLORIDE 0.9 % (FLUSH) 10 ML SYRINGE IVF ×2 (13:44→14:46)
[2025-01-10] MEDS: HEPARIN 500 UNIT/5 ML SYRINGE 250 UNIT IVF (14:46)
[2025-01-14 08:15] VITALS: BP 121/82; PULSE 91; RESP 16; TEMP 36.5; O2SAT 92
[2025-01-14] MEDS: SODIUM CHLORIDE 0.9 % (FLUSH) 10 ML SYRINGE IVF ×2 (08:16→09:37)
[2025-01-14] MEDS: HEPARIN 500 UNIT/5 ML SYRINGE 250 UNIT IVF (09:37)
[2025-01-17 14:04] VITALS: BP 124/85; PULSE 103; RESP 16; TEMP 36.6; O2SAT 99
[2025-01-17] MEDS: SODIUM CHLORIDE 0.9 % (FLUSH) 10 ML SYRINGE IVF ×2 (14:12→15:05)
[2025-01-17] MEDS: HEPARIN 500 UNIT/5 ML SYRINGE 250 UNIT IVF (15:05)
[2025-01-19 11:36] VITALS: BP 127/89; PULSE 95; RESP 16; TEMP 36.4; O2SAT 99
[2025-01-19] MEDS: SODIUM CHLORIDE 0.9 % (FLUSH) 10 ML SYRINGE IVF ×2 (11:44→12:46)
[2025-01-19] MEDS: HEPARIN 500 UNIT/5 ML SYRINGE 250 UNIT IVF (12:46)
[2025-01-21 08:03] VITALS: BP 118/82; PULSE 106; RESP 16; TEMP 36.4; O2SAT 96
[2025-01-21] MEDS: SODIUM CHLORIDE 0.9 % (FLUSH) 10 ML SYRINGE IVF (08:09)
[2025-01-21] MEDS: HEPARIN 500 UNIT/5 ML SYRINGE 250 UNIT IVF (08:09)
== END 2025-01-22 23:59 | disposition home or self-care (01) ==
LOC: CCIC 08:00
PROVIDERS: PCP Family Medicine; Referring Provider Family Medicine; Visit Provider Clinical Nurse Specialist
DX: G90.A Postural orthostatic tachycardia syndrome [POTS] (principal)
CPT/HCPCS: 96360; 96365; 99211; G0463; A4221; J1642; J7030

== ENCOUNTER 2025-01-27 18:49 | Outpatient (CLI) | payer BC, SELFPAY | END 2025-01-27 18:50 | disposition home or self-care (01) | LOC: AMB 01-31 05:41 | PROVIDERS: PCP Family Medicine; Visit Provider Family Medicine | DX: I49.9 Cardiac arrhythmia, unspecified (principal); U07.1 COVID-19 | CPT/HCPCS: A0425; A0427 ==

== ENCOUNTER 2025-01-27 19:39 | Emergency (ER) | payer BC, SELFPAY ==
--- OUTSIDE RECORDS SUMMARY | 2024-12-20 14:00 | XMS_ITS | Encounter Summary ---
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 [M35.7] 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] Chronic pain [G89.29] / Alysa Chinchilla MD/PF Procedures CHASE DANLOS TREATMENT [address] [address] Phone: tel: Referral ID Status Reason Start Date Expiration Date V isits Requested Visits Authorized [id number] Authorized 05/12/2024 04/06/2025 365 365 Encounter Details Date Type Department Care Team (Late st Contact Info) Description 12/20/2024 2:00 PM CDT Therapy Visit [facility] [address] [place] [address] [address] [place] [address] Alysa Chinchilla MD [employer] [facility] [address] [facility] [place] [address] Valdez Monica Ni, PT [address] [place] [address] Chase-Danlos syndrome (Primary Dx) Social History Tobacco [...] in an abandoned building, in an overnight correction, or couch-surfing.) Yes 11/23/2023 Are you worried [...] Sex Assigned at Female 02/16/2019 10:59 AM FASHION BUYING INTERNSHIP Legal Sex Female 11:51 AM CDT Gender Identity Female 02/16/2019 10:59 AM FASHION BUYING INTERNSHIP Sexual Orientation Bisexual 08/08/2023 1: 47 PM CDT documented as of this encounter Plan of Treatment Upcoming Encounters Date Type Department Care Team (Late st Contact Info) Description 02/14/2025 4:30 PM FASHION BUYING INTERNSHIP Office Visit [facility] Internal Medicine [address] [place] [phone] Shalom Renteria MD [address] [place] [address] 02/21/2025 12:30 PM FASHION BUYING INTERNSHIP Therapy Visit [address] [address] Alysa Chinchilla MD [employer] [facility]ES [address] [address] Monica Kellogg, PT [address] [place] [address] 03/21/2025 12:30 PM FASHION BUYING INTERNSHIP Therapy Visit [address] [address] Alysa Chinchilla MD [employer] [facility]ES [address] [address] Monica Kellogg, PT [address] [place] [address] 09/09/2025 2:45 PM CDT Office Visit [place] [address] [place] [address] Malini Anderson PA-C [address] [place] [address] documented as of this encounter Visit Diagnoses Diagnosis Chase-Danlos syndrome- Primary documented in this encounter Additional Health Concerns Assessment Noted Time PHQ-9 Depression Total Score: 5 04/07/19 25 2:20 PM FASHION BUYING INTERNSHIP documented as of this encounter Care Teams Curriculum And Instruction Director Relationship Specialty Start Date End Date Shalom Renteria MD [address] [place] [address] PCP - General Internal Medicine 03/03/24 Devika Fleming MD [address] [place] [address] Neurology 10/30/21 Shalom Renteria MD [address] [place] [address] Assigned PCP 12/29/23 Melissa Melvin PA-C [address] [place] [address] Physician Glass Beveller Gastroenterology 03/03/24 Malini Anderson PA-C [address] [place] [address] Physician Glass Beveller 03/03/24 Melissa Melvin PA-C [address] [place] [address] Assigned Gastroenterology Provider 04/29/24 Malini Anderson PA-C [address] [place] [address] Assigned Dermatology Provider 09/27/24 documented as of this encounter
--- OUTSIDE RECORDS SUMMARY | 2025-01-17 11:00 | XMS_ITS | Encounter Summary ---
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] Hypermobility syndrome [M35.7] 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] Chronic pain [G89.29] / Alysa Chinchilla MD/PF Procedures CHASE DANLOS TREATMENT [address] [address] Phone: tel: Referral ID Status Reason Start Date Expiration Date V isits Requested Visits Authorized [id number] Authorized 05/12/2024 04/06/2025 365 365 Encounter Details Date Type Department Care Team (Late st Contact Info) Description 01/17/2025 11:00 AM CDT Therapy Visit [facility] [address] [place] [address] [address] [place] [address] Alysa Chinchilla MD [employer] [facility]ES [facility] [address] [facility] [place] [address] Valdez oMnica Ni, PT [address] [place] [address] Chase-Danlos syndrome (Primary Dx) Social History Tobacco [...] in an abandoned building, in an overnight senior care, or couch-surfing.) Yes 11/23/2023 Are you worried [...] Sex Assigned at Female 02/16/2019 10:59 AM HERBOLOGIST Legal Sex Female 11:51 AM CDT Gender Identity Female 02/16/2019 10:59 AM HERBOLOGIST Sexual Orientation Bisexual 08/08/2023 1: 47 PM CDT documented as of this encounter Plan of Treatment Upcoming Encounters Date Type Department Care Team (Late st Contact Info) Description 02/14/2025 4:30 PM HERBOLOGIST Office Visit [facility] Internal Medicine [address] [place] [phone] Shalom Renteria MD [address] [place] [address] 02/21/2025 12:30 PM HERBOLOGIST Therapy Visit [address] [address] Alysa Chinchilla MD [employer] CARES [address] [address] Monica Kellogg, PT [address] [place] [address] 03/21/2025 12:30 PM HERBOLOGIST Therapy Visit [address] [address] Alysa Chinchilla MD [employer] [facility] [address] [address] Monica Kellogg, PT [address] [place] [address] 09/09/2025 2:45 PM CDT Office Visit [place] [address] [place] [address] Malini Anderson PA-C [address] [place] [address] documented as of this encounter Visit Diagnoses Diagnosis Chase-Danlos syndrome- Primary documented in this encounter Additional Health Concerns Assessment Noted Time PHQ-9 Depression Total Score: 5 04/07/19 25 2:20 PM HERBOLOGIST documented as of this encounter Care Teams On Site Manager Relationship Specialty Start Date End Date Shalom Renteria MD [address] [place] [address] PCP - General Internal Medicine 03/03/24 Devika Fleming MD [address] [place] [address] Neurology 10/30/21 Shalom Renteria MD [address] [place] [address] Assigned PCP 12/29/23 Melissa Melvin PA-C [address] [place] [address] Physician Chinese Medicine Practitioner Gastroenterology 03/03/24 Malini Anderson PA-C [address] [place] [address] Physician Chinese Medicine Practitioner 03/03/24 Melissa Melvin PA-C [address] [place] [address] Assigned Gastroenterology Provider 04/29/24 Malini Anderson PA-C [address] [place] [address] Assigned Dermatology Provider 09/27/24 documented as of this encounter
[2025-01-27] VITALS (16 sets, daily range): BP systolic 127–147; BP diastolic 86–102; PULSE 105–115; RESP 12–20; TEMP 37.7; O2SAT 99–100; BMI 31.8
--- OUTSIDE RECORDS SUMMARY | 2025-01-27 19:42 | XMS_ITS | Clinical Summary ---
Author Organization [facility] Address [address] [place] [address] Care Team Providers Care Program Support Clerk Name Role Phone No Primary/Referring, Phy Primary Care Provider Unavailable Source Comments You are receiving this document as you are listed as the primary care provider,follow-up provider, or the patient has been referred to you for consultation.This is in compliance with the Medicare and[facility] EHR Incentive Program,which states Providers who transition their patient to another setting of careor provider of care or refers their patient to another provider of care shouldprovide summary care record for each transition of care or referral. [facility] Allerg[facility] Active Allergy Reactions Criticality Noted Date [...] Comments Blood Pressure 115/90 03/11/2016 8:45 PM FOOD AND DRUG RESEARCH SCIENTIST Pulse 87 03/11/2016 8:45 PM FOOD AND DRUG RESEARCH SCIENTIST Temperature 36.4 C (97.5 F) 03/11/2016 8:44 PM FOOD AND DRUG RESEARCH SCIENTIST Respiratory Rate 22 03/11/2016 8:44 PM FOOD AND DRUG RESEARCH SCIENTIST Oxygen Saturation 96% 03/11/2016 8:44 PM FOOD AND DRUG RESEARCH SCIENTIST Inhaled Oxygen Concentration - - Weight 107 kg (236 lb) 03/11/2016 8:44 PM FOOD AND DRUG RESEARCH SCIENTIST Height 168.9 cm (5' 6.5) 03/11/2016 8:44 PM FOOD AND DRUG RESEARCH SCIENTIST Body Mass Index 37.52 03/11/2016 8:44 PM FOOD AND DRUG RESEARCH SCIENTIST Plan of Treatment Health Maintenance Due Date Last Done Comments Cervical Cancer Screening Due 1984 Hep C Screening (Preventive Services) 1984 Mammogram 1984 HIV Screening (Preventive Services) 2000 Adult Preventive Visit 2002 DTaP/Tdap/Td Vaccine (1 - Tdap) 2003 HepB Vaccine (1) 2003 HPV Vaccine (1 - 3-dose SCDM series) 2011 COVID-19 Vaccine (1 - 2023-2 5 season) 2024 Influenza Vaccine (#1) 2024 04/07/2018 Zoster/Shingles Vaccine (1 of 2) 2034 HepA Vaccine Aged Out No longer eligi [...] this topic Insurance SELF INSURED Care Teams Program Support Clerk Relationship Specialty Start Date End Date No Primary/Referring, Phy PCP - General 03/11/16
--- OUTSIDE RECORDS SUMMARY | 2025-01-27 19:42 | XMS_ITS | Clinical Summary ---
Author Organization [employer] [facility] [facility] Address [address] [place] [address] Care Team Providers Care Sewing Machine Operator Floorperson Name Role Phone Janet Jones MD Primary [...] DEPR, RECURR, PARTIAL REMISSION 10/08/2007 11/09/2014 Immunizations Immunization Administration Dates Next Due COVID-19 [...] on file Legal Sex Female 5:26 AM DEPUTY DIRECTOR OF FINANCE Gender Identity Not on file Sexual Orientation [...] Comments Blood Pressure 102/64 04/21/2023 2:08 PM DEPUTY DIRECTOR OF FINANCE Pulse 96 04/21/2023 2:08 PM DEPUTY DIRECTOR OF FINANCE Temperature 36.4 C (97.6 F) 05/12/2017 3:29 PM DEPUTY DIRECTOR OF FINANCE Respiratory Rate 16 07/17/2018 12:1 2 PM CDT Oxygen Saturation 100% 04/21/2023 2:08 PM DEPUTY DIRECTOR OF FINANCE Inhaled Oxygen Concentration - - Weight 108.1 kg (238 lb 6.4 oz) 04/21/2023 2:08 PM DEPUTY DIRECTOR OF FINANCE Height 170 cm (5' 6.93) 04/21/2023 2:08 PM DEPUTY DIRECTOR OF FINANCE Body Mass Index 37.42 04/21/2023 2:08 PM DEPUTY DIRECTOR OF FINANCE Plan of Treatment Health Maintenance Due Date Last Done Comments HIV for age 15-65 1999 Hepatitis C screening for age 18-79 2002 HPV series for age 9-45 (1 - 3-dose SCDM series) 2011 Depression screening for age 12+ 01/28/2024 01/27/2023, 06/07/2016, 09/27/2015, Additional history exists BMI (ht and wt on same day) for age 18+ 04/21/2024 04/21/2023, 01/27/2023, 05/12/2017, Additional history exists COVID-19 vaccine series ( season) 2024 02/22/2021, 02/22/2021, 06/29/2020, Additional history exists Influenza Vaccine (#1) 2024 3, 02/05/2022, 02/14/2021, Additional history exists Pap test for age 21-65 05/05/2026 4 (Completed outside of [facility]), 10/15/2019, 10/15/2019, Additional history exists Tetanus booster 07/15/2028 07/15/2018, 12/0 05/2010, 07/27/1996 RSV vaccine for adults or (1 - 1-dose 75+ series) 2059 Hepatitis B series for 19+ Completed 02/13, 08/08/1998, 07/07/1998 Pneumococcal series for age 6-49 Aged Out No longer eligible based on patient's age to complete this topic Procedures Procedure Name Priority Date/Time Associated Diagnosis Comments FIELD AGRONOMIST THIN PREP PAP SCREEN IMAGED Routine 10/15/2019 2:00 PM CDT from Last 3 Months or Most Recently Relevant to Health Maintenance Results * FIELD AGRONOMIST THIN PREP PAP SCREEN IMAGED (10/15/2019 2:00 PM CDT) Case Report Gynecologic Cytology Report Case: [id number] Authorizing Provider: Susie Vogt MD Collected: 10/15/2019 1400 Ordering Location: [facility] Received: 10/19/2019 0948 First Screen: Giovanny Perea Specimen: FIELD AGRONOMIST ThinPrep Vial Screening, Cervical/Vaginal 10/20/2019 12:34 PM CDT [facility] INTERPRETATION/ RESULT NEGATIVE FOR INTRAEPITHELIAL LESION OR MALIGNANCY (NIL) (none) 10/20/2019 12:34 PM CDT [facility] at 1234 CDT SPECIMEN ADEQUACY Satisfactory for evaluation Endocervical component present 10/20/2019 12:34 PM CDT [facility] HPV REQUEST HPV and PAP 10/20/2019 12:34 PM CDT [facility] Last Pap Date 07/24/2010 10/20/2019 12:34 PM CDT [facility] Last Pap Result NIL 0 12:34 PM CDT [facility] Menstrual Status 10/20/2019 12:34 PM CDT [facility] Comment:IUD Additional Information 10/20/2019 12:34 PM CDT [facility] Comment: Interpreted at [facility] - [address] [place], [place], [place] [address] Automated Review Successful 10/20/2019 12:34 PM CDT [facility] Comment:Specimen processed s uccessfully by automated research coordinator device, [employer] System, [employer] ANCILLARY TESTING FIELD AGRONOMIST HPV Ordered, Please see separate report 10/20/2019 12:34 PM CDT [facility] Note The pap test is a [...] and malignant lesions. 10/20/2019 12:[address] [facility] Other (Cervical/Vagina l) 10/15/2019 2:00 PM CDT 10/19/2019 9:48 AM CDT us Susie Vogt MD PATHOLOGY/CYTOLOGY Final R esult [facility] [address] [place] [address], [place] from Last 3 Months or Most Recently Relevant to Health Maintenance Insurance [employer] Care Teams Sewing Machine Operator Floorperson Relationship Specialty Start Date End Date Janet Jones MD PCP - General Family Practice 04/21/23
--- OUTSIDE RECORDS SUMMARY | 2025-01-27 19:42 | XMS_ITS | Encounter Summary ---
Author Organization Center Address [address] [place] [address] Care Team Providers Care Nursing Staffing Coordinator Name Role Phone AjpuneetDevika MD Unavailable [phone] Shalom Renteria MD Unavailable Melissa Melvin PA-C Unavailable Shalom Renteria MD Primary Care Provider [phone] Malini Anderson PA-C Unavailable [phone] Melissa Melvin PA-C Unavailable Malini Anderson PA-C Unavailable [phone] Encounter Details Date Type Department Care Team (Latest Contact Info) Description 12/20/2024 Travel Social History Tobacco Use Types Packs/Day [...] in an abandoned building, in an overnight nursing home, or couch-surfing.) Yes 11/23/2023 Are you [...] Sex Assigned at Female 02/16/2019 10:59 AM OPERATIONS TEAM LEADER Legal Sex Female 11:51 AM CDT Gender Identity Female 02/16/2019 10:59 AM OPERATIONS TEAM LEADER Sexual Orientation Bisexual 08/08/2023 1: 47 PM CDT documented as of this encounter Plan of Treatment Upcoming Encounters Date Type Department Care Team (Late st Contact Info) Description 02/14/2025 4:30 PM OPERATIONS TEAM LEADER Office Visit [facility] Internal Medicine [address] [address] Shalom Renteria MD [address] [place] [address] 02/21/2025 12:30 PM OPERATIONS TEAM LEADER Therapy Visit [facility] Rehabilitation Services [address] [place], [place] [phone] Alysa Chinchilla MD [facility] CARES [address] [phone] Monica Kellogg, PT [address] [place] [address] 03/21/2025 12:30 PM OPERATIONS TEAM LEADER Therapy Visit [facility] [address] [facility] [address] [place] [address] Alysa Chinchilla MD [facility] [address] [address] Monica Kellogg, PT [address]09 [place] [address] 09/09/2025 2:45 PM CDT Office Visit [facility] [address] [phone] Malini Anderson PA-C [address] [place] [address] documented as of this encounter Visit Diagnoses Not on filedocumented in this encounter Additional Health Concerns Assessment Noted Time PHQ-9 Depression Total Score: 5 04/07/19 25 2:20 PM OPERATIONS TEAM LEADER documented as of this encounter Care Teams Nursing Staffing Coordinator Relationship Specialty Start Date End Date Shalom Renteria MD [address] [place] [address] PCP - General Internal Medicine 03/03/24 Devika Fleming MD [address] [place] [address] Neurology 10/30/21 Shalom Renteria MD [address] [place] [address] Assigned PCP 12/29/23 Melissa Melvin PA-C [address] [place] [address] Physician Kindergartners Helper Gastroenterology 03/03/24 Malini Anderson PA-C [address] [place] [address] Physician Kindergartners Helper 03/03/24 Melissa Melvin PA-C [address] [place] [address] Assigned Gastroenterology Provider 04/29/24 Malini Anderson PA-C [address] [place] [address]94990 Assigned Dermatology Provider 09/27/24 documented as of this encounter
--- OUTSIDE RECORDS SUMMARY | 2025-01-27 19:42 | XMS_ITS | Encounter Summary ---
Author Organization [facility] Address [address] [place] [address] Care Team Providers Care Compliance Officer Name Role Phone AjpuneetDevika MD Unavailable [phone] Shalom Renteria MD Unavailable Melissa Melvin PA-C Unavailable Shalom Renteria MD Primary Care Provider [phone] Malini Anderson PA-C Unavailable [phone] Melissa Melvin PA-C Unavailable Malini Anderson PA-C Unavailable [phone] Encounter Details Date Type Department Care Team (Latest Contact Info) Description 01/14/2025 Travel Social History Tobacco Use Types Packs/Day [...] Sex Assigned at Female 02/16/2019 10:59 AM PURIFICATION DIRECTOR Legal Sex Female 11:51 AM CDT Gender Identity Female 02/16/2019 10:59 AM PURIFICATION DIRECTOR Sexual Orientation Bisexual 08/08/2023 1: 47 PM CDT documented as of this encounter Plan of Treatment Upcoming Encounters Date Type Department Care Team (Late st Contact Info) Description 02/14/2025 4:30 PM PURIFICATION DIRECTOR Office Visit [facility] Internal Medicine [address] [address] Shalom Renteria MD [address] [place] [address] 02/21/2025 12:30 PM PURIFICATION DIRECTOR Therapy Visit [facility] Rehabilitation Services [address] [place], [place] [phone] Alysa Chinchilla MD [facility] CARES [address] [phone] Monica Kellogg, PT [address] [place] [address] 03/21/2025 12:30 PM PURIFICATION DIRECTOR Therapy Visit [facility] [address] [facility] [address] [place] [address] Alysa Chinchilla MD [facility] [address] [address] Monica Kellogg, PT [address]09 [place] [address] 09/09/2025 2:45 PM CDT Office Visit [facility] [address] [phone] Malini Anderson PA-C [address] [place] [address] documented as of this encounter Visit Diagnoses Not on filedocumented in this encounter Additional Health Concerns Assessment Noted Time PHQ-9 Depression Total Score: 5 04/07/19 25 2:20 PM PURIFICATION DIRECTOR documented as of this encounter Care Teams Compliance Officer Relationship Specialty Start Date End Date Shalom Renteria MD [address] [place] [address] PCP - General Internal Medicine 03/03/24 Devika Fleming MD [address] [place] [address] Neurology 10/30/21 Shalom Renteria MD [address] [place] [address] Assigned PCP 12/29/23 Melissa Melvin PA-C [address] [place] [address] Physician Public Health Assistant Gastroenterology 03/03/24 Malini Anderson PA-C [address] [place] [address] Physician Public Health Assistant 03/03/24 Melissa Melvin PA-C [address] [place] [address] Assigned Gastroenterology Provider 04/29/24 Malini Anderson PA-C [address] [place] [address] 283300 Assigned Dermatology Provider 09/27/24 documented as of this encounter
--- OUTSIDE RECORDS SUMMARY | 2025-01-27 19:42 | XMS_ITS | Encounter Summary ---
Author Organization [facility] Address [address] [place] [address] Care Team Providers Care Tapeman Name Role Phone AjpuneetDevika MD Unavailable [phone] Shalom Renteria MD Unavailable Melissa Melvin-C Unavailable Shalom Renteria MD Primary Care Provider [phone] Malini Anderson-C Unavailable [phone] Melissa Melvin PA-C Unavailable Malini Anderson-C Unavailable [phone] Encounter Details Date Type Department Care Team (Late st Contact Info) Description 12/03/2024 [facility] Internal Medicine [address] [address] Shalom Renteria MD [address] [place] [address] Social History Tobacco Use Types Packs/Day [...] Sex Assigned at Female 02/16/2019 10:59 AM TIE LAYER Legal Sex Female 11:51 AM CDT Gender Identity Female 02/16/2019 10:59 AM TIE LAYER Sexual Orientation Bisexual 08/08/2023 1: 47 PM CDT documented as of this encounter Plan of Treatment Upcoming Encounters Date Type Department Care Team (Late st Contact Info) Description 02/14/2025 4:30 PM TIE LAYER Office Visit [facility] Internal Medicine [address] [address] Shalom Renteria MD [address] [place] [address] 02/21/2025 12:30 PM TIE LAYER Therapy Visit [address] [place] [address] Alysa Chinchilla MD [address] [address] Monica Kellogg, PT [address] [place] [address] 03/21/2025 12:30 PM TIE LAYER Therapy Visit [address] [place] [address] Alysa Chinchilla MD [address] [address] Monica Kellogg, PT [address] [place] [address] 09/09/2025 2:45 PM CDT Office Visit [facility] [address] [phone] Malini Anderson PA-C [address] [phone] documented as of this encounter Visit Diagnoses Not on filedocumented in this encounter Additional Health Concerns Assessment Noted Time PHQ-9 Depression Total Score: 5 04/07/19 25 2:20 PM TIE LAYER documented as of this encounter Care Teams Tapeman Relationship Specialty Start Date End Date Shalom Renteria MD [address] [place] [address] PCP - General Internal Medicine 03/03/24 Devika Fleming MD [address] [place] [address] Neurology 10/30/21 Shalom Renteria MD 909 [place] [address] Assigned PCP 12/29/23 Melissa Melvin PA-C [address] [place] [address] Physician Commercial Sheet Metal Foreman Gastroenterology 03/03/24 Malini Anderson PA-C [address] [place] [address] Physician Commercial Sheet Metal Foreman 03/03/24 Melissa Melvin PA-C [address] [place] [address] Assigned Gastroenterology Provider 04/29/24 Malini Anderson PA-C [address] [place] [address] Assigned Dermatology Provider 09/27/24 documented as of this encounter
--- OUTSIDE RECORDS SUMMARY | 2025-01-27 19:43 | XMS_ITS | Encounter Summary ---
Author Organization [facility] Address [address] [place] [address] Care Team Providers Care Gas Furnace Installer Name Role Phone Devika Fleming MD Unavailable [phone] Shalom Renteria MD Unavailable Melissa Melvin PA-C Unavailable Shalom Renteria MD Primary Care Provider [phone] Malini Anderson PA-C Unavailable [phone] Melissa Melvin PA-C Unavailable Malini Anderson PA-C Unavailable [phone] Reason for Referral * Consultation (Routine: Next available opening) - Pending Review Specialty Diagnoses / Procedures Referred By Edi ayala Referred To Contact Gastroenterology Diagnoses Chronic nausea Alternating constipation and diarrhea Shalom Renteria MD [address] [place] [address] Phone: tel: fax: [address] [address] Phone: tel: Referral ID Status Reason Start Date Expiration Date V isits Requested Visits Authorized [id number] Pending Review 05/17/2024 05/17/2025 1 1 Question Answer Reason for Referral: General GI Patient Scheduling Instructions: [facility] will call you to coordinate your care as prescribed by the provider. If you don t hear from a promotional representative within 2 business days, please call . Additional Information: Natali Mahoney (preferred), or Abhijit Street, or Raul Sepulveda Comments Please be aware that coverage of these services is subject to the terms and limitations of your health insurance plan. Call member services at your health plan with any benefit or coverage questions. [facility] will call you to coordinate your care as prescribed by the provider. If you don t hear from a promotional representative within 2 business days, please call . TEGIC INTELLIGENCE OFFICER Encounter Details Date Type Department Care Team (Latest Contact Info) Description 05/14/2024 MyC Medical Advice [facility] Internal Medicine [address] [address] Shalom Renteria MD [address] [place] [address] Alternating constipation and diarrhea (Primary Dx); [...] Sex Assigned at Female 02/16/2019 10:59 AM STRATEGIC INTELLIGENCE OFFICER Legal Sex Female 11:51 AM CDT Gender Identity Female 02/16/2019 10:59 AM STRATEGIC INTELLIGENCE OFFICER Sexual Orientation Bisexual 08/08/2023 1: 47 PM CDT documented as of this encounter Miscellaneous Notes * Telephone Encounter - Shalom Renteria MD - 05/17/2024 2:23 PM CST Referral signed. Shalom Brown MD TEGIC INTELLIGENCE OFFICER documented in this encounter Plan of Treatment Upcoming Encounters Date Type Department Care Team (Late st Contact Info) Description 02/14/2025 4:30 PM STRATEGIC INTELLIGENCE OFFICER Office Visit [facility] Internal Medicine [address] [place] [address] Shalom Renteria MD [address] [place] [address] 02/21/2025 12:30 PM STRATEGIC INTELLIGENCE OFFICER Therapy Visit [facility] Rehabilitation Services [facility] [address] [place] [address] [address] [place] [address] Alysa Chinchilla MD [facility] [place] [id number] Monica Kellogg, PT [address] [place] [address] 03/21/2025 12:30 PM STRATEGIC INTELLIGENCE OFFICER Therapy Visit [facility] [address] [facility] [address] [place] [address] Alysa Chinchilla MD [facility] [address] [place] [address] Monica Kellogg, PT [address] [place] [address] 09/09/2025 2:45 PM CDT Office Visit [facility] [address] [phone] Malini Anderson PA-C [address] [place] [address] 853700 Scheduled Referrals Name Type Priority Associated Diagnoses Orde r Schedule Adult GI Developmental Education Instructor Referral - Consult Only Referral Routine: Next available opening Chronic nausea Alternating constipation and diarrhea Expected: 05/17/2024 (Approximate), Expires: 05/17/2025 documented as of this encounter Visit Diagnoses Diagnosis Alternating constipation and diarrhea- Primary Other symptoms involving digestive system Chronic nausea Nausea alone documented in this encounter Additional Health Concerns Assessment Noted Time PHQ-9 Depression Total Score: 5 04/07/19 25 2:20 PM STRATEGIC INTELLIGENCE OFFICER documented as of this encounter Care Teams Gas Furnace Installer Relationship Specialty Start Date End Date Shalom Renteria MD [address] [place] [address] PCP - General Internal Medicine 03/03/24 Devika Fleming MD [address] [place] [address] Neurology 10/30/21 Shalom Renteria MD [address] [place] [address] Assigned PCP 12/29/23 Melissa Melvin PA-C [address] [place] [address] Physician Cathode Maker Gastroenterology 03/03/24 Malini Anderson PA-C [address] [place] [address] Physician Cathode Maker 03/03/24 Melissa Melvin PA-C [address] [place] [address] Assigned Gastroenterology Provider 04/29/24 Malini Anderson PA-C [facility] [address] [place] [address] Assigned Dermatology Provider 09/27/24 documented as of this encounter
--- OUTSIDE RECORDS SUMMARY | 2025-01-27 19:43 | XMS_ITS | Encounter Summary ---
Author Organization [facility] Address [address] [place] [address] Care Team Providers Care High Raw Sugar Boiler Name Role Phone Susie Vogt MD Primary Care Provider Devika Fleming MD Unavailable [phone] Devika Fleming MD Unavailable [phone] Alysa Chinchilla MD Primary Care Provider Shalom Renteria MD Unavailable Melissa Mevlin-C Unavailable Shalom Renteria MD Primary Care Provider [phone] Malini Anderson-C Unavailable [phone] Melissa Melvin-C Unavailable Malini Anderson-C Unavailable [phone] Encounter Details Date Type Department Care Team (Late st Contact Info) Description 04/10/2022 [facility] [address] [place] [address] Devika Fleming MD [address] [place] [address] Social History Tobacco Use Types Packs/Day Years Used Date Smoking Tobacco: Never Smokeless Tobacco: Never Alcohol Use Standard Drinks/Week Comments Not Currently 0 (1 standard drink = 0.6 oz pur e alcohol) PHQ-2 Answer Date Recorded PHQ-2 Score 2 02/18/2022 Comments Unknown Sex and Gender Information Value Date Recorded Sex Assigned at Female 02/16/2019 10:59 AM PACKING ROOM WORKER Legal Sex Female 11:51 AM CDT Gender Identity Female 02/16/2019 10:59 AM PACKING ROOM WORKER Sexual Orientation Bisexual 08/08/2023 1: 47 PM CDT documented as of this encounter Plan of Treatment Upcoming Encounters Date Type Department Care Team (Late st Contact Info) Description 02/14/2025 4:30 PM PACKING ROOM WORKER Office Visit [facility] Internal Medicine [address] [place] [phone] Shalom Renteria MD [address] [place] [address] 02/21/2025 12:30 PM PACKING ROOM WORKER Therapy Visit [address] [address] Alysa Chinchilla MD [facility] [address] [address] Monica Kellogg, PT [address] [place] [address] 03/21/2025 12:30 PM PACKING ROOM WORKER Therapy Visit [address] [address] Alysa Chinchilla MD [facility] CARES [address] [address] Monica Kellogg, PT [address] [place] [address] 09/09/2025 2:45 PM CDT Office Visit [address] [phone] Malini Anderson PA-C [address] [address] documented as of this encounter Visit Diagnoses Not on filedocumented in this encounter Care Teams High Raw Sugar Boiler Relationship Specialty Start Date End Date Susie Vogt MD PCP - General hand i cutter 12/29/18 08/07/23 Alysa Chinchilla MD [facility] [address] [place] [address] PCP - General 08/08/23 03/02/24 Shalom Renteria MD [address] [place] [address] PCP - General Internal Medicine 03/03/24 Devika Fleming MD [address] [place] [address] Neurology 10/30/21 Devika Fleming MD [address] [place] [address] Assigned Neuroscience Provider 02/23/22 08/27/23 Shalom Renteria MD [address] [place] [address] Assigned PCP 12/29/23 Melissa Melvin PA-C [address] [place] [address] Physician Heavy Duty Mechanic Farm Equipment Gastroenterology 03/03/24 Malini Anderson PA-C [address], [place] [address] Physician Heavy Duty Mechanic Farm Equipment 03/03/24 Melissa Melvin PA-C [address] [place] [address] Assigned Gastroenterology Provider 04/29/24 Malini Anderson PA-C [address], [place] [address] Assigned Dermatology Provider 09/27/24 documented as of this encounter
--- OUTSIDE RECORDS SUMMARY | 2025-01-27 19:43 | XMS_ITS | Encounter Summary ---
Author Organization [facility] Address [address] [place] [address] Care Team Providers Care Farm Agent Name Role Phone Susie Vogt MD Primary Care Provider Devika Fleming MD Unavailable [phone] Devika Fleming MD Unavailable [phone] Alysa Chinchilla MD Primary Care Provider Shalom Renteria MD Unavailable Melissa Melvin-C Unavailable Shalom Renteria MD Primary Care Provider Malini Anderson-C Unavailable [phone] Melissa eMlvin-Margarita Unavailable Malini Anderson-C Unavailable [phone] Reason for Visit * Reason Onset Date Comments Refill Request 10/07/2020 Encounter Details Date Type Department Care Team (Late st Contact Info) Description 10/07/2020 [facility] Neurology [address] [address] Lali Orr MD [address] [place] [address] 2121 [place] [address] Refill Request Social History Tobacco Use Types Packs/Day Years Used Date Smoking Tobacco: Never Smokeless Tobacco: Never Alcohol Use Standard Drinks/Week Comments Not Currently 0 (1 standard drink = 0.6 oz pur e alcohol) PHQ-2 Answer Date Recorded PHQ-2 Score 2 02/22/2019 Comments Unknown Sex and Gender Information Value Date Recorded Sex Assigned at Female 02/16/2019 10:59 AM SLOTTER OPERATOR Legal Sex Female 11:51 AM CDT Gender Identity Female 02/16/2019 10:59 AM SLOTTER OPERATOR Sexual Orientation Bisexual 08/08/2023 1: 47 PM CDT documented as of this encounter Plan of Treatment Upcoming Encounters Date Type Department Care Team (Late st Contact Info) Description 02/14/2025 4:30 PM SLOTTER OPERATOR Office Visit [facility] Internal Medicine [address] [phone] Shalom Renteria MD [address] [place] [address] 02/21/2025 12:30 PM SLOTTER OPERATOR Therapy Visit [address] [address] Alysa Chinchilla MD [facility] [address] [address] Monica Kellogg, PT [address] [place] [address] 03/21/2025 12:30 PM SLOTTER OPERATOR Therapy Visit [address] [address] Alysa Chinchilla MD [facility] [address] [address] Monica Kellogg, PT [address] [place] [address] 09/09/2025 2:45 PM CDT Office Visit [facility] [address] [phone] Malini Anderson PA-C [address] [address] documented as of this encounter Visit Diagnoses Diagnosis Chronic tension-type headache, intractable Chronic tension type headache Migraine with aura and without status migrainosus, not intractable Migraine with aura, without mention of intractable migraine without mention of status migrainosus documented in this encounter Care Teams Farm Agent Relationship Specialty Start Date End Date Susie Vogt MD PCP - General teacher of the deaf 12/29/18 08/07/23 Alysa Chinchilla MD [facility] [id number] [place] [address] PCP - General 08/08/23 03/02/24 Shalom Renteria MD [address] [place] [address] PCP - General Internal Medicine 03/03/24 Devika Fleming MD [address] [place] [address] Neurology 10/30/21 Devika Fleming MD [address] [place] [address] Assigned Neuroscience Provider 02/23/22 08/27/23 Shalom Renteria MD [address] [place] [address] Assigned PCP 12/29/23 Melissa Melvin PA-C [address] [place] [address] Physician Cutter Finisher Gastroenterology 03/03/24 Malini Anderson PA-C [address] [place] [address] Physician Cutter Finisher 03/03/24 Melissa Melvin PA-C [address] [place] [address] Assigned Gastroenterology Provider 04/29/24 Malini Anderson PA-C [address] [place] [address] 614920 Assigned Dermatology Provider 09/27/24 documented as of this encounter
--- OUTSIDE RECORDS SUMMARY | 2025-01-27 19:43 | XMS_ITS | Encounter Summary ---
Author Organization [facility] Address [address] [place] [address] Care Team Providers Care Food Service Substitute Name Role Phone Susie Vogt MD Primary Care Provider Devika Fleming MD Unavailable [phone] Devika Fleming MD Unavailable [phone] Alysa Chinchilla MD Primary Care Provider [phone] Shalom Renteria MD Unavailable Melissa Melvin PA-C Unavailable Shalom Renteria MD Primary Care Provider [phone] Malini Anderson PA-C Unavailable [phone] Melissa Melvin PA-C Unavailable Malini Anderson PA-C Unavailable [phone] Encounter Details Date Type Department Care Team (Late st Contact Info) Description 10/16/2020 [facility] [place] [facility] Adv[facility] [address] [place] [address] Susi Gloria, ISIAH Social History Tobacco Use Types Packs/Day Years Used Date Smoking Tobacco: Never Smokeless Tobacco: Never Alcohol Use Standard Drinks/Week Comments Not Currently 0 (1 standard drink = 0.6 oz pur e alcohol) PHQ-2 Answer Date Recorded PHQ-2 Score 2 02/22/2019 Comments Unknown Sex and Gender Information Value Date Recorded Sex Assigned at Female 02/16/2019 10:59 AM HEALTH NURSE Legal Sex Female 11:51 AM CDT Gender Identity Female 02/16/2019 10:59 AM HEALTH NURSE Sexual Orientation Bisexual 08/08/2023 1: 47 PM CDT documented as of this encounter Plan of Treatment Upcoming Encounters Date Type Department Care Team (Late st Contact Info) Description 02/14/2025 4:30 PM HEALTH NURSE Office Visit [facility] Internal Medicine [address] 4th [place] [phone] Shalom Renteria MD [address] [place] [address] 02/21/2025 12:30 PM HEALTH NURSE Therapy Visit [address] [address] Alysa Chinchilla MD [facility] [address] [address] Monica Kellogg, PT [address] [place] [address] 03/21/2025 12:30 PM HEALTH NURSE Therapy Visit [address] [address] Alysa Chinchilla MD [facility] [address] [address] Monica Kellogg, PT [address] [place] [address] 09/09/2025 2:45 PM CDT Office Visit [address] [phone] Malini Anderson PA-C [address] [place] [address] documented as of this encounter Visit Diagnoses Not on filedocumented in this encounter Care Teams Food Service Substitute Relationship Specialty Start Date End Date Susie Vogt MD PCP - General commercial art instructor 12/29/18 08/07/23 Alysa Chinchilla MD [employer] [facility] [address] [place] [address] PCP - General 08/08/23 03/02/24 Shalom Renteria MD [address] [place] [address] PCP - General Internal Medicine 03/03/24 Devika Fleming MD [address] [place] [address] Neurology 10/30/21 Devika Fleming MD [address] [place] [address] Assigned Neuroscience Provider 02/23/22 08/27/23 Shalom Renteria MD [address] [place] [address] Assigned PCP 12/29/23 Melissa Melvin PA-C [address] [place] [address] Physician District Manager Primary Care Sales Gastroenterology 03/03/24 Malini Anderson PA-C [address], [place] [address] Physician District Manager Primary Care Sales 03/03/24 Melissa Melvin PA-C [address] [place] [address] Assigned Gastroenterology Provider 04/29/24 Malini Anderson PA-C [address] [place] [address] Assigned Dermatology Provider 09/27/24 documented as of this encounter
--- OUTSIDE RECORDS SUMMARY | 2025-01-27 19:43 | XMS_ITS | Encounter Summary ---
Author Organization [facility] Address [address] [place] [address] Care Team Providers Care Project Landscape Architect Name Role Phone Susie Vogt MD Primary Care Provider Devika Fleming MD Unavailable [phone] Devika Fleming MD Unavailable [phone] Alysa Chinchilla MD Primary Care Provider Shalom Renteria MD Unavailable Melissa Melvin-C Unavailable Shalom Renteria MD Primary Care Provider [phone] Malini Anderson-C Unavailable [phone] Melissa Melvin-C Unavailable Malini Anderson-C Unavailable [phone] Encounter Details Date Type Department Care Team (Late st Contact Info) Description 08/14/2022 [facility] [address] 3rd [place] [address] Devika Fleming MD [address] [place] [address] Social History Tobacco Use Types Packs/Day Years Used Date Smoking Tobacco: Never Smokeless Tobacco: Never Alcohol Use Standard Drinks/Week Comments Not Currently 0 (1 standard drink = 0.6 oz pur e alcohol) PHQ-2 Answer Date Recorded PHQ-2 Score 2 02/18/2022 Comments Unknown Sex and Gender Information Value Date Recorded Sex Assigned at Female 02/16/2019 10:59 AM MAC OPERATOR Legal Sex Female 11:51 AM CDT Gender Identity Female 02/16/2019 10:59 AM MAC OPERATOR Sexual Orientation Bisexual 08/08/2023 1: 47 PM CDT documented as of this encounter Plan of Treatment Upcoming Encounters Date Type Department Care Team (Late st Contact Info) Description 02/14/2025 4:30 PM MAC OPERATOR Office Visit [facility] Internal Medicine [address] [place] [phone] Shalom Renteria MD [address] [place] [address] 02/21/2025 12:30 PM MAC OPERATOR Therapy Visit [address] [address] Alysa Chinchilla MD [employer] [address] [address] Monica Kellogg, PT [address] [place] [address] 03/21/2025 12:30 PM MAC OPERATOR Therapy Visit [address] [address] Alysa Chinchilla MD [facility] [address] [address] Monica Kellogg, PT [address] [place] [address] 09/09/2025 2:45 PM CDT Office Visit [address] [phone] Malini Anderson PA-C [address] [address] documented as of this encounter Visit Diagnoses Not on filedocumented in this encounter Care Teams Project Landscape Architect Relationship Specialty Start Date End Date Susie Vogt MD PCP - General customer advisor 12/29/18 08/07/23 Alysa Chinchilla MD [facility] [address] [place] [address] PCP - General 08/08/23 03/02/24 Shalom Renteria MD [address] [place] [address] PCP - General Internal Medicine 03/03/24 Devika Fleming MD [address] [place] [address] Neurology 10/30/21 Devika Fleming MD [address] [place] [address] Assigned Neuroscience Provider 02/23/22 08/27/23 Shalom Renteria MD [address] [place] [address] Assigned PCP 12/29/23 Melissa Melvin PA-C [address] [place] [address] Physician Stoker Erector Gastroenterology 03/03/24 Malini Anderson PA-C [address], [place] [address] Physician Stoker Erector 03/03/24 Melissa Melvin PA-C [address] [place] [address] Assigned Gastroenterology Provider 04/29/24 Malini Anderson PA-C [address], [place] [address] Assigned Dermatology Provider 09/27/24 documented as of this encounter
--- OUTSIDE RECORDS SUMMARY | 2025-01-27 19:43 | XMS_ITS | Encounter Summary ---
Author Organization [facility] Address [address] [place] [address] Care Team Providers Care Websphere Portal Developer Name Role Phone AjpuneetDevika MD Unavailable [phone] Shalom Renteria MD Unavailable Melissa Melvin-C Unavailable Shalom Renteria MD Primary Care Provider [phone] Malini Anderson-C Unavailable [phone] Melissa Melvin-C Unavailable Malini Anderson-C Unavailable [phone] Encounter Details Date Type Department Care Team (Late st Contact Info) Description 03/29/2024 [facility] Medical Advice [address] [address] Yecenia Jones Social History Tobacco [...] Sex Assigned at Female 02/16/2019 10:59 AM CLOTH SHADER Legal Sex Female 11:51 AM CDT Gender Identity Female 02/16/2019 10:59 AM CLOTH SHADER Sexual Orientation Bisexual 08/08/2023 1: 47 PM CDT documented as of this encounter Plan of Treatment Upcoming Encounters Date Type Department Care Team (Late st Contact Info) Description 02/14/2025 4:30 PM CLOTH SHADER Office Visit [facility] Internal Medicine [address] [place] [address] Shalom Renteria MD [address] [place] [address] 02/21/2025 12:30 PM CLOTH SHADER Therapy Visit [facility] Rehabilitation Services [address] [place] [address] Alysa Chinchilla MD [employer] [address] [place] [address] [place] Monica Ni, PT [address] [place] [address] 03/21/2025 12:30 PM CLOTH SHADER Therapy Visit [facility] [address] [place] [address] Avenue [address] [place] [address] Alysa Chinchilla MD [employer] [address] [address] [place] Monica Ni, PT [address] [place] [address] 09/09/2025 2:45 PM CDT Office Visit [address] [phone] Malini Anderson PA-C [address] [place] [address] 388530 documented as of this encounter Visit Diagnoses Not on filedocumented in this encounter Additional Health Concerns Assessment Noted Time PHQ-9 Depression Total Score: 9 11/28/19 24 12:43 PM CDT documented as of this encounter Care Teams Websphere Portal Developer Relationship Specialty Start Date End Date Shalom Renteria MD [address] [place] [address] PCP - General Internal Medicine 03/03/24 Devika Fleming MD [address] [place] [address] Neurology 10/30/21 Shalom Renteria MD [address] [place] [address] Assigned PCP 12/29/23 Melissa Melvin PA-C [address] [place] [address] Physician Guest Experience Specialist Gastroenterology 03/03/24 Malini Anderson PA-C [address] [place] [address] Physician Guest Experience Specialist 03/03/24 Melissa Melvin PA-C [address] [place] [address] Assigned Gastroenterology Provider 04/29/24 Malini Anderson PA-C [address] [place] [address] Assigned Dermatology Provider 09/27/24 documented as of this encounter
--- OUTSIDE RECORDS SUMMARY | 2025-01-27 19:43 | XMS_ITS | Encounter Summary ---
Author Organization [facility] Address [address] [place] [address] Care Team Providers Care Media Aid Name Role Phone Susie Vogt MD Primary Care Provider Devika Fleming MD Unavailable Devika Fleming MD Unavailable [phone] Devika Fleming MD Unavailable Alysa Chinchilla MD Primary Care Provider [phone] Shalom Renteria MD Unavailable Melissa Melvin-C Unavailable Shalom Renteria MD Primary Care Provider [phone] Malini Anderson-C Unavailable [phone] Melissa Melvin-C Unavailable Malini Anderson-C Unavailable [phone] Reason for Visit * Reason Onset Date Comments Refill Request 07/17/2019 Encounter Details Date Type Department Care Team (Late st Contact Info) Description 07/17/2019 [facility] Neurology [address] [facility] 3rd [place] [address] Devika Fleming MD [address] [place] [address] Refill Request Social History Tobacco Use Types Packs/Day Years Used Date Smoking Tobacco: Never Smokeless Tobacco: Never Alcohol Use Standard Drinks/Week Comments Not Currently 0 (1 standard drink = 0.6 oz pur e alcohol) PHQ-2 Answer Date Recorded PHQ-2 Score 2 02/22/2019 Comments Unknown Sex and Gender Information Value Date Recorded Sex Assigned at Female 02/16/2019 10:59 AM CLAIMS ADJUSTER Legal Sex Female 11:51 AM CDT Gender Identity Female 02/16/2019 10:59 AM CLAIMS ADJUSTER Sexual Orientation Bisexual 08/08/2023 1: 47 PM CDT documented as of this encounter Plan of Treatment Upcoming Encounters Date Type Department Care Team (Late st Contact Info) Description 02/14/2025 4:30 PM CLAIMS ADJUSTER Office Visit [facility] Internal Medicine [address] [phone] Shalom Renteria MD [address] [place] [address] 02/21/2025 12:30 PM CLAIMS ADJUSTER Therapy Visit [address] [address] Alysa Chinchilla MD [employer] [facility] [address] [address] Monica Kellogg, PT [address] [place] [address] 03/21/2025 12:30 PM CLAIMS ADJUSTER Therapy Visit [address] [address] Alysa Chinchilla MD [employer] [address] [address] Monica Kellogg, PT [address] [place] [address] 09/09/2025 2:45 PM CDT Office [facility] [address] [phone] Malini Anderson PA-C [address] [address] documented as of this encounter Visit Diagnoses Diagnosis Chronic tension-type headache, intractable Chronic tension type headache Migraine with aura and without status migrainosus, not intractable Migraine with aura, without mention of intractable migraine without mention of status migrainosus documented in this encounter Care Teams Media Aid Relationship Specialty Start Date End Date Susie Vogt MD PCP - General manager of medical 12/29/18 08/07/23 Alysa Chinchilla MD [facility] [id number] [place] [address] PCP - General 08/08/23 03/02/24 Shalom Renteria MD [address] [place] [address] PCP - General Internal Medicine 03/03/24 Devika Fleming MD [address] [place] [address] Assigned Neuroscience Provider 01/28/20 08/26/20 Devika Fleming MD [address] [place] [address] Neurology 10/30/21 Devika Fleming MD [address] [place] [address] Assigned Neuroscience Provider 02/23/22 08/27/23 Shalom Renteria MD [address] [place] [address] Assigned PCP 12/29/23 Melissa Melvin PA-C [address] [place] [address] Physician Jet Dyeing Machine Tender Gastroenterology 03/03/24 Malini Anderson PA-C [address] [place] [address] Physician Jet Dyeing Machine Tender 03/03/24 Melissa Melvin PA-C [address] [address] [place] [address] Assigned Gastroenterology Provider 04/29/24 Malini Anderson PA-C [address] [place] [address] Assigned Dermatology Provider 09/27/24 documented as of this encounter
--- OUTSIDE RECORDS SUMMARY | 2025-01-27 19:43 | XMS_ITS | Encounter Summary ---
Author Organization [facility] Address [address] [place] [address] Care Team Providers Care Wood Web Weaving Machine Operator Name Role Phone Susie Vogt MD Primary Care Provider Devika Fleming MD Unavailable Devika Fleming MD Unavailable Devika Fleming MD Unavailable Alysa Chinchilla MD Primary Care Provider Shalom Renteria MD Unavailable Melissa Melvin-C Unavailable Shalom Renteria MD Primary Care Provider Malini Anderson-C Unavailable [phone] Melissa Melvin-C Unavailable Malini Anderson-C Unavailable [phone] Encounter Details Date Type Department Care Team (Late st Contact Info) Description 06/02/2019 [facility] Neurology [address] [facility] [address] [place] [address] Devika Fleming MD [address] [place] [address] Social History Tobacco Use Types Packs/Day Years Used Date Smoking Tobacco: Never Smokeless Tobacco: Never Alcohol Use Standard Drinks/Week Comments Not Currently 0 (1 standard drink = 0.6 oz pur e alcohol) PHQ-2 Answer Date Recorded PHQ-2 Score 2 02/22/2019 Comments Unknown Sex and Gender Information Value Date Recorded Sex Assigned at Female 02/16/2019 10:59 AM UNDERWRITING ANALYST Legal Sex Female 11:51 AM CDT Gender Identity Female 02/16/2019 10:59 AM UNDERWRITING ANALYST Sexual Orientation Bisexual 08/08/2023 1: 47 PM CDT documented as of this encounter Plan of Treatment Upcoming Encounters Date Type Department Care Team (Late st Contact Info) Description 02/14/2025 4:30 PM UNDERWRITING ANALYST Office Visit [facility] Internal Medicine [address] [phone] Shalom Renteria MD [address] [place] [address] 02/21/2025 12:30 PM UNDERWRITING ANALYST Therapy Visit [address] [address] Alysa Chinchilla MD [employer] [facility] [address] [address] Monica Kellogg, PT [address] [place] [address] 03/21/2025 12:30 PM UNDERWRITING ANALYST Therapy Visit [address] [address] Alysa Chinchilla MD [employer] [address] [address] Monica Kellogg, PT [address] [place] [address] 09/09/2025 2:45 PM CDT Office Visit [facility] [place] [address] [phone] Malini Anderson PA-C [address] [place] [address] documented as of this encounter Visit Diagnoses Not on filedocumented in this encounter Care Teams Wood Web Weaving Machine Operator Relationship Specialty Start Date End Date Susie Vogt MD PCP - General database architect 12/29/18 08/07/23 Alysa Chinchilla MD [facility] [address] [place] [address] PCP - General 08/08/23 03/02/24 Shalom Renteria MD [address] [place] [address] PCP - General Internal Medicine 03/03/24 Devika Flmeing MD [address] [place] [address] Assigned Neuroscience Provider 01/28/20 08/26/20 Devika Fleming MD [address] [place] [address] Neurology 10/30/21 Devika Fleming MD [address] [place] [address] Assigned Neuroscience Provider 02/23/22 08/27/23 Shalom Renteria MD [address] [place] [address], [place] [address] Assigned PCP 12/29/23 Melissa Melvin PA-C [address] [place] [address] Physician Delivery Man Gastroenterology 03/03/24 Malini Anderson PA-C [address] [place] [address] Physician Delivery Man 03/03/24 Melissa Melvin PA-C [address] [address], [place] [address] Assigned Gastroenterology Provider 04/29/24 Malini Anderson PA-C [address] [place] [address] Assigned Dermatology Provider 09/27/24 documented as of this encounter
--- OUTSIDE RECORDS SUMMARY | 2025-01-27 19:43 | XMS_ITS | Clinical Summary ---
Author Organization [place] Address [address] [place] [address] Care Team Providers Care Documentation Designer Name Role Phone AjpuneetDevika MD Unavailable [phone] Shalom Renteria MD Unavailable Melissa Melvin PA-C Unavailable Shalom Renteria MD Primary Care Provider [phone] Malini Anderson PA-C Unavailable [phone] Melissa Melvin PA-C Unavailable Malini Anderson PA-C Unavailable [phone] Allergies Active Allergy Reactions Criticality Noted Date [...] BEFORE EACH MEAL AND AT BEDTIME 11/11/19 24 Active cloNIDine (CATAPRES) 0.2 MG tablet TAKE [...] Active Problems Problem Noted Date Diagnosed Date Colon adenoma 12/03/2024 Dysautonomia 11/28/2023 Hyperlipidemia 11/28/2023 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 [...] Encounters Date Type Department Care Team Description 01/17/2025 11:00 AM CDT Therapy Visit [address] [address] Alysa Chinchilla MD Gerardi, Meghan Marie, PT Chase-Danlos syndrome (Primary Dx) 01/17/2025 Travel 01/14/2025 Travel 12/20/2024 2:00 PM CDT Therapy Visit [address] [address] Alysa Chinchilla MD Gerardi, Meghan Marie, PT Chase-Danlos syndrome (Primary Dx) 12/20/2024 Travel 12/03/2024 MyC Medical Advice [facility] Internal Medicine [address] [address] Shalom Renteria MD 12/03/2024 Results Follow-Up [facility] [address] [address] Rachel Lord, ISIAH from Last 3 Months Immunizations Immunization Administration [...] Sex Assigned at Female 02/16/2019 10:59 AM DOG LICENSER Legal Sex Female 11:51 AM CDT Gender Identity Female 02/16/2019 10:59 AM DOG LICENSER Sexual Orientation Bisexual 08/08/2023 1: 47 PM CDT Last Filed Vital Signs Vital Sign Reading Time Taken Comments Blood Pressure 153/103 04/06/2024 2:40 PM DOG LICENSER Pulse 100 04/06/2024 2:40 PM DOG LICENSER Temperature 36.6 C (97.9 F) 02/28/2024 10:50 AM DOG LICENSER Respiratory Rate 18 02/28/2024 10:50 AM DOG LICENSER Oxygen Saturation 99% 04/06/2024 2:04 PM DOG LICENSER Inhaled Oxygen Concentration - - Weight 109.8 kg (242 lb) 04/06/2024 2:04 PM DOG LICENSER Height 170.2 cm (5' 7.01) 02/28/2024 10:50 AM Margarita CAZARES Body Mass Index 37.89 02/28/2024 10:50 AM DOG LICENSER Plan of Treatment Upcoming Encounters Date Type Department Care Team (Late st Contact Info) Description 02/14/2025 4:30 PM DOG LICENSER Office Visit [facility] Internal Medicine [address] 4th [place] [phone] Shalom Renteria MD [address] [place] [address] 02/21/2025 12:30 PM DOG LICENSER Therapy Visit [address] [address] Alysa Chinchilla MD [employer] [facility] [address] [place] [address] Monica Kellogg, PT [address] [address] 03/21/2025 12:30 PM DOG LICENSER Therapy Visit [address] [address] Alysa Chinchilla MD [employer] [address] [address] Monica Kellogg, PT [address] [address] 09/09/2025 2:45 PM CDT Office Visit [facility] [address] [phone] Malini Anderson PA-C [address] [address] Health Maintenance Due Date Last Done Comments ADVANCE CARE PLANNING 1984 CT COLONOGRAPHY 1984 DEPRESSION ACTION PLAN 1984 FIT 1984 FLEX SIG 1984 MAMMO SCREENING 1984 sDNA (Cologuard) 1984 YEARLY PREVENTIVE VISIT 1987 PHQ-9 10/06/2024 04/08/2024, 11/28/2023 ANNUAL REVIEW OF HM ORDERS 11/27/2024 11/28/2023 COVID-19 VACCINE ( season) 2024 02/22/2021, 02/22/2021, 06/29/2020, Additional history exists INFLUENZA VACCINE (#1) 2024 , 02/05/2022, 02/14/2021, Additional history exists LIPID 02/27/2025 02/28/2024, 05/23/2023 PAP 12/06/2025 12/06/2022, 10/15/2019 DIABETES SCREENING 04/06/2027 04/06/2024, 1 , 05/23/2023 DTAP/TDAP/TD VACCINE (4 - Td or Tdap) 07/15/2028 07/15/2018, 03/08/2011, 07/27/1996 COLONOSCOPY 12/02/2031 12/01/2024 COLORECTAL CANCER SCREENING 12/02/2031 ZOSTER VACCINE (1 of 2) 2034 HEPATITIS B VACCINE Completed 02/13/1999, 08/08/1998, 07/07/1998 MENINGITIS VACCINE Completed 02/10/2003 HEPATITIS C SCREENING Discontinued HIV SCREENING Discontinued HPV VACCINE (No Doses Required) Completed PNEUMOCOCCAL VACCINE: PEDIATRICS (0 to 5 YEARS) AND AT-RISK PATIENTS (6 to 49 YEARS) Aged Out No longer eligible based on patient's age to complete this topic Procedures Procedure Name Priority Date/Time Associated Diagnosis Comments COLONOSCOPY - HIM SCAN 12:12 PM CDT COMPREHENSIVE METABOLIC PANEL Routine 04/06/2024 2:50 PM DOG LICENSER Abdominal pain, unspecified abdominal location Loose stools LIPID REFLEX TO DIRECT LDL PANEL Routine 02/28/2024 9:16 AM DOG LICENSER Dyslipidemia PAP SMEAR - HIM PATIENT REPORTED Routine 12/06/2022 from Last 3 Months or Most Recently Relevant to Health Maintenance Results * Colonoscopy - HIM Scan (12/01/2024 12:12 PM CDT) Narrative Procedure Note Natali Mahoney MD - 12/01/2024 12:12 PM CDT Images from the original note were not included. [facility] [address] [place] [address], [address], [place] [address] Patient Name: Linda Valente Gender: Female Exam Date: 12/01/2024 Visit Number: [id number] Age: 39 Years Date of : 1985 Attending MD: Natali Mahoney MD Medical Record#: [id number] Procedure: Colonoscopy Indications: Nausea, irregular bowel habits, elevated fecal calprotectin Referring MD: Referral Self Primary MD: Shalom Renteria MD Medications: Admitting Medications: 0.9% Normal Saline at [facility] Ondansetron Hydrochloride (Zofran) given 4mg by IV Intra Procedure Medications: Patient received monitored anesthesia care. No IV medications given during procedure. Complications: No immediate complications Procedure: An examination of the heart and lungs was performed and found to be withinacceptable limits. . The patient was therefore deemed a reasonablecandidate for endoscopy and sedation. The risks and benefits of the procedure were explained to the patient.After obtaining informed consent, I passed the scope without difficultyvia the rectum to the cecum. The appendiceal orifice and ic valve wereidentified. The scope was retroflexed during the examination The qualityof the prep was good (Miralax/Gatorade Double Prep). This was a complete examination throughout the entire colon. Findings: Normal finding. Location - ileum. Normal finding. Location - entire colon. Biopsy taken. Maneuver -cold biopsy forceps. Polyp location: rectum. Quantity: 2. Size: 1-2 mm. Polyp shape:sessile. Maneuver: polypectomy was performed with a cold biopsy forceps. Removal: complete. Retrieval: complete. Bleeding: none. Impression: Epigastric pain Other fecal abnormalities Diarrhea, unspecified type MD impression comments: Given elevated fecal calprotectin, elevated CRP,recommend PillCam to screen for evidence of small bowel inflammation. Preliminary Plan: The patient and their physician will receive a copy of the pathologyreport as well as pathology-based recommendations for future screening orsurveillance. Procedure: Upper GI Endoscopy Indications: nausea, irregular bowels Provider: Natali Mahoney MD Referring MD: Referral Self Primary MD: Shalom Renteria MD Medications: Admitting Medication: 0.9% Normal Saline at [facility] Ondansetron Hydrochloride (Zofran) given 4mg by IV Intra Procedure Medications: Patient received monitored anesthesia care. Complications: No immediate complications Procedure: An examination of the heart and lungs was performed within acceptablelimits. . The patient was therefore deemed a reasonable candidate forsedation. The risks and benefits were explained to the patient, who appeared tounderstand. After obtaining informed consent, the scope was passed underdirect vision. Throughout the procedure the patient's blood pressure,pulse and oxygen saturations were monitored. The scope was introducedthrough the mouth and advanced to the second portion of duodenum. Findings: Esophagus: Normal esophagus. The z-line is 38 centimeters from the incisors. Top of the gastric foldsis 38 centimeters from the incisors. Stomach: Normal stomach. H. Pylori biopsies taken. The diaphragm hiatus is at 38 centimeters from the incisors. Duodenum: Normal duodenum. Celiac Sprue biopsies taken. Celiac Sprue biopsies taken. Impression: Elevated fecal calprotectin Dyspepsia Nausea Preliminary Plan: Recommendation Comments: Proceed to colonoscopy. Pathology Results: A: STOMACH, BIOPSY: 1. Normal gastric antral and body mucosae 2. Negative for Helicobacter B: DUODENUM, BIOPSY: 1. Normal duodenal mucosa 2. Negative for celiac disease and other enteropathy C: COLON, RANDOM, BIOPSY: 1. Normal colonic mucosa 2. Negative for microscopic, active, and chronic colitis D: RECTUM, POLYPS: 1. Tubular adenoma (1) and hyperplastic polyp (1) 2. Negative for high grade dysplasia 3. Per the colonoscopy report: a. Polyp sizes: 1 mm - 2 mm b. Resection: Complete c. Retrieval: Complete MICROSCOPIC A: Performed B: Performed C: Performed D: Performed Electronically signed by: Kenn Sanchez MD Interpreted at [facility], [address] [place] [phone] Orders Office Procedures: Service Comments Timeframe Assessment Small Bowel PillCam First Available R19.7 Instruction(s)/Education: Instruction/Education Timeframe Assessment Colon Cancer Prevention R19.5 Colon Polyps R19.5 Follow-up visit/Referral: Order Comments follow-up visit with Natali Mahoney MD upon completion of work-up If your health care provider has asked for a follow-up visit, yourappointment will be scheduled with a nurse practitioner or physicianassistant on your provider's care team, unless noted above. Final Plan: Repeat colonoscopy in 7 years. We will attempt to contact you at appropriate intervals via U.S. mail. Wemay not be able to find you or contact you at that time, therefore youshould know that the responsibility for following our recommendation restswith you. If you don't hear from us at the time your procedure is due,please contact our office to schedule an appointment. If your contactinformation should change, please contact our office so that we can updateyour record. _Electronically signed by: Natali Mahoney MD 12/01/2024 cc: Shalom Renteria MD us Natali Mahoney MD PROCEDURES Final R esult * (ABNORMAL) Comprehensive metabolic panel (BMP + Alb, Alk Phos, ALT, AST, Total. Bili, TP) (04/06/2024 2:50 PM DOG LICENSER) Sodium 143 135 - 145 mmol/L 04/06/2024 3:14 PM DOG LICENSER [facility] Potassium 4.0 3.4 - 5.3 mmol/L 04/06/2024 3:14 PM DOG LICENSER [facility] Carbon Dioxide (CO2) 26 22 - 29 mmol/L 04/06/2024 3:14 PM DOG LICENSER [facility] Anion Gap 12 7 - 15 mmol/L 04/06/2024 3:14 PM DOG LICENSER [facility] Urea Nitrogen 10.4 6.0 - 20.0 mg/dL 04/06/2024 3:14 PM DOG LICENSER [facility] Creatinine 0.86 0.51 - 0.95 mg/dL 04/06/2024 3:14 PM DOG LICENSER [facility] GFR Estimate 88 >60 mL/min/1.7 3m2 04/06/2024 3:14 PM DOG LICENSER [facility] Comment:eGFR calculated usin 2020 CKD-EPI equation. Calcium 8.9 8.8 - 10.4 mg/dL 04/06/2024 3:14 PM DOG LICENSER [facility] Comment:Reference intervals for this test were updated on 10/21/2023 to reflect our healthy population more accurately. There may be differences in the flagging of prior results with similar values performed with this method. Those prior results can be interpreted in the context of the updated reference intervals. Chloride 105 98 - 107 mmol/L 04/06/2024 3:14 PM DOG LICENSER [facility] Glucose 115(H) 70 - 99 mg/dL 04/06/2024 3:14 PM DOG LICENSER [facility] Alkaline Phosphatase 99 40 - 150 U/L 04/06/2024 3:14 PM DOG LICENSER [facility] AST 33 0 - 45 U/L 04/06/2024 3:14 PM DOG LICENSER [facility] ALT 45 0 - 50 U/L 04/06/2024 3:14 PM DOG LICENSER [facility] Protein Total 7.3 6.4 - 8.3 g/dL 04/06/2024 3:14 PM DOG LICENSER [facility] Albumin 4.3 3.5 - 5.2 g/dL 04/06/2024 3:14 PM DOG LICENSER [facility] Bilirubin Total 0.4 <=1.2 mg/dL 04/06/2024 3:14 PM DOG LICENSER [facility] Blood STRUCTURE OF LEFT UPPER LIMB / Unknown Venipuncture / Unknown 04/06/2024 2:50 PM DOG LICENSER 04/06/2024 2:53 PM DOG LICENSER us Melissa Melvin PA-C LAB - BLOOD ORDERABLES Final Res ult LABORATORY [facility] [place] [address], [place] [address] * (ABNORMAL) Lipid panel reflex to direct LDL Non-fasting (02/28/2024 9:16 AM DOG LICENSER) Cholesterol 234(H) <200 mg/dL 02/28/2024 9:52 AM DOG LICENSER [facility] Triglycerides 272(H) <150 mg/dL 02/28/2024 9:52 AM DOG LICENSER [facility] Direct Measure HDL 31(L) >=50 mg/dL 02/28/2024 9:52 AM DOG LICENSER [facility] LDL Cholesterol Calculated 149(H) <100 mg/dL 02/28/2024 9:52 AM DOG LICENSER [facility] Non HDL Cholesterol 203(H) <130 mg/dL 02/28/2024 9:52 AM DOG LICENSER [facility] Patient Fasting > 8hrs? Yes 02/28/2024 9:52 AM DOG LICENSER [facility] Blood STRUCTURE OF LEFT UPPER LIMB / Unknown Venipuncture / Unknown 02/28/2024 9:16 AM DOG LICENSER 02/28/2024 9:17 AM DOG LICENSER Narrative [facility] - 02/28/2024 9:52 AM DOG LICENSER Cholesterol Desirable: < 200 mg/dL Borderline High: [...] LAB - BLOOD ORDERABLES Final Res ult [facility] - [address] 1st Floor [place] [address] * PAP Smear - HIM Patient Reported (12/06/2022) PAP Smear - HIM Patient Reported Unknown EXTERNAL LAB 12/06/2022 Narrative EXTERNAL LAB - 12/06/2022 SEE ENCOUNTER DATED 11/28/23 us Patient Reported LABORATORY Final Result EXTERNAL LAB External Lab from Last 3 Months or Most Recently Relevant to Health Maintenance Insurance [id number] OUT [facility] STATE BCBS OUT OF STATE Care Teams Documentation Designer Relationship Specialty Start Date End Date Shalom Renteria MD [address] [place] [address] PCP - General Internal Medicine 03/03/24 Devika Fleming MD [address] [place] [address] Neurology 10/30/21 Shalom Renteria MD [address] [place] [address] Assigned PCP 12/29/23 Melissa Melvin PA-C [address] [place] [address] Physician Artist'S Representative Gastroenterology 03/03/24 Malini Anderson PA-C [address] [place] [address] Physician Artist'S Representative 03/03/24 Melissa Melvin PA-C [address] [address], [place] [address] Assigned Gastroenterology Provider 04/29/24 Malini Anderson PA-C [address] [place] [address] Assigned Dermatology Provider 09/27/24
--- OUTSIDE RECORDS SUMMARY | 2025-01-27 19:43 | XMS_ITS | Encounter Summary ---
Author Organization [facility] Address [address] [place] [address] Care Team Providers Care Electrician Telephone Name Role Phone Susie Vogt MD Primary Care Provider Devika Fleming MD Unavailable [phone] Devika Fleming MD Unavailable [phone] Alysa Chinchilla MD Primary Care Provider [phone] Shalom Renteria MD Unavailable Melissa Melvin PA-C Unavailable Shalom Renteria MD Primary Care Provider [phone] Malini Anderson PA-C Unavailable [phone] Melissa Melvin PA-C Unavailable Malini Anderson PA-C Unavailable [phone] Encounter Details Date Type Department Care Team [...] Sex Assigned at Female 02/16/2019 10:59 AM BENZENE WORKER Legal Sex Female 11:51 AM CDT Gender Identity Female 02/16/2019 10:59 AM BENZENE WORKER Sexual Orientation Bisexual 08/08/2023 1: 47 PM CDT documented as of this encounter Plan of Treatment Upcoming Encounters Date Type Department Care Team (Late st Contact Info) Description 02/14/2025 4:30 PM BENZENE WORKER Office Visit [facility] Internal Medicine [address] 4th [place] [phone] Shalom Renteria MD [address] [place] [address] 02/21/2025 12:30 PM BENZENE WORKER Therapy Visit [address] [address] Alysa Chinchilla MD [employer] [address] [address] Monica Kellogg, PT [address] [place] [address] 03/21/2025 12:30 PM BENZENE WORKER Therapy Visit [address] [address] Alysa Chinchilla MD [employer] [address] [address] Monica Kellogg, PT [address] [place] [address] 09/09/2025 2:45 PM CDT Office Visit [facility] [address] [phone] Malini Anderson PA-C [address] [place] [phone] documented as of this encounter Visit Diagnoses Not on filedocumented in this encounter Care Teams Electrician Telephone Relationship Specialty Start Date End Date Susie Vogt MD PCP - General pipe maker 12/29/18 08/07/23 Alysa Chinchilla MD [facility] [address] [place] [address] PCP - General 08/08/23 03/02/24 Shalom Renteria MD [address] [place] [address] PCP - General Internal Medicine 03/03/24 Devika Fleming MD [address] [place] [address] Neurology 10/30/21 Devika Fleming MD [address] [place] [address] Assigned Neuroscience Provider 02/23/22 08/27/23 Shalom Renteria MD [address] [place] [address] Assigned PCP 12/29/23 Melissa Melvin PA-C [address] [place] [address] Physician Ornamental Metal Worker Helper Gastroenterology 03/03/24 Malini Anderson PA-C [address] [place] [address] Physician Ornamental Metal Worker Helper 03/03/24 Melissa Melvin PA-C [address] [place] [address] Assigned Gastroenterology Provider 04/29/24 Malini Anderson PA-C [address] [place] [address] Assigned Dermatology Provider 09/27/24 documented as of this encounter
--- OUTSIDE RECORDS SUMMARY | 2025-01-27 19:43 | XMS_ITS | Encounter Summary ---
Author Organization [place] Address [address] [place] [address] Care Team Providers Care Winemaker Name Role Phone AjpuneetDevika MD Unavailable [phone] Shalom Renteria MD Unavailable Melissa Melvin PA-C Unavailable Shalom Renteria MD Primary Care Provider [phone] Malini Anderson-C Unavailable [phone] Melissa Melvin PA-C Unavailable Malini Anderson PA-C Unavailable [phone] Encounter Details Date Type Department Care Team (Late st Contact Info) Description 03/08/2024 [facility] Medical Advice [facility] [address] [place] [address] [address] [place] [address] Kimberly Suh, PT [address] [place] [address] Social History Tobacco Use Types Packs/Day Years [...] Sex Assigned at Female 02/16/2019 10:59 AM COMMUNITY HEALTH CONSULTANT Legal Sex Female 11:51 AM CDT Gender Identity Female 02/16/2019 10:59 AM COMMUNITY HEALTH CONSULTANT Sexual Orientation Bisexual 08/08/2023 1: 47 PM CDT documented as of this encounter Plan of Treatment Upcoming Encounters Date Type Department Care Team (Late st Contact Info) Description 02/14/2025 4:30 PM COMMUNITY HEALTH CONSULTANT Office Visit [facility] Internal Medicine [address] [phone] Shalom Renteria MD [address] [place] [address] 02/21/2025 12:30 PM COMMUNITY HEALTH CONSULTANT Therapy Visit [address] [place] [address] Alysa Chinchilla MD [address] [address] Monica Kellogg, PT [address] [place] [address] 03/21/2025 12:30 PM COMMUNITY HEALTH CONSULTANT Therapy Visit [address] [place] [address] Alysa Chinchilla MD [facility] [address] [address] Monica Kellogg, PT [address] [place] [address] 09/09/2025 2:45 PM CDT Office Visit [facility] [address] [phone] Malini Anderson PA-C [address] [place] [address] documented as of this encounter Visit Diagnoses Not on filedocumented in this encounter Additional Health Concerns Assessment Noted Time PHQ-9 Depression Total Score: 9 11/28/19 24 12:43 PM CDT documented as of this encounter Care Teams Winemaker Relationship Specialty Start Date End Date Shalom Renteria MD [address] [place] [address] PCP - General Internal Medicine 03/03/24 Devika Fleming MD [address] [place] [address] MD Neurology 10/30/21 Shalom Renteria MD [address] [place] [address] Assigned PCP 12/29/23 Melissa Melvin PA-C [address] [place] [address] Physician Population Geneticist Gastroenterology 03/03/24 Malini Anderson PA-C [address] [place] [address] Physician Population Geneticist 03/03/24 Melissa Melvin PA-C [address] [facility] [place] [address] Assigned Gastroenterology Provider 04/29/24 Malini Anderson PA-C [address] [place] [address] Assigned Dermatology Provider 09/27/24 documented as of this encounter
--- OUTSIDE RECORDS SUMMARY | 2025-01-27 19:43 | XMS_ITS | Encounter Summary ---
Author Organization [facility] Address [address] [place] [address] Care Team Providers Care Fusion Juncture Grinder Name Role Phone Susie Vogt MD Primary Care Provider [phone] Devika Fleming MD Unavailable Devika Fleming MD Unavailable [phone] Devika Fleming MD Unavailable Alysa Chinchilla MD Primary Care Provider Shalom Renteria MD Unavailable Melissa Melvin-Margarita Unavailable Shalom Renteria MD Primary Care Provider [phone] Malini Anderson-C Unavailable [phone] Melissa Melvin-Margarita Unavailable Malini Anderson-Margarita Unavailable [phone] Reason for Visit * Reason Onset Date Comments Refill Request 04/07/2020 Encounter Details Date Type Department Care Team (Late st Contact Info) Description 04/07/2020 [facility] [address] [address] Lali Orr MD [address] [place] [address] Refill Request Social History Tobacco Use Types Packs/Day Years Used Date Smoking Tobacco: Never Smokeless Tobacco: Never Alcohol Use Standard Drinks/Week Comments Not Currently 0 (1 standard drink = 0.6 oz pur e alcohol) PHQ-2 Answer Date Recorded PHQ-2 Score 2 02/22/2019 Comments Unknown Sex and Gender Information Value Date Recorded Sex Assigned at Female 02/16/2019 10:59 AM GRAINING MACHINE OPERATOR Legal Sex Female 11:51 AM CDT Gender Identity Female 02/16/2019 10:59 AM GRAINING MACHINE OPERATOR Sexual Orientation Bisexual 08/08/2023 1: 47 PM CDT documented as of this encounter Miscellaneous Notes * Telephone Encounter - Jo Parson CMA - 04/10/2020 8:53 AM GRAINING MACHINE OPERATOR Rx Authorization: ??? Requested Medication/ Dose: Nortriptyline 10MG caps ??? Date last refill ordered: 02/21/20 ??? Quantity ordered: 90 caps ??? # refills: ??? Date of last clinic visit with ordering provider: 02/22/19 ??? Date of next clinic visit with ordering provider: F/U 1 year ??? All pertinent protocol data (lab date/result): ??? Include pertinent information from patients message: NING MACHINE OPERATOR documented in this encounter Plan of Treatment Upcoming Encounters Date Type Department Care Team (Late st Contact Info) Description 02/14/2025 4:30 PM GRAINING MACHINE OPERATOR Office Visit [facility] Internal Medicine [address] [place] [address] Shalom Renteria MD [address] [place] [address] 02/21/2025 12:30 PM GRAINING MACHINE OPERATOR Therapy Visit [facility] [address] [place] [address] [address] [place] [address] Alysa Chinchilla MD [facility] [address] [address] ValdezMonica, PT 909 [place] [address] 03/21/2025 12:30 PM GRAINING MACHINE OPERATOR Therapy Visit [facility] [address] [facility] [address] [place] [address] Alysa Chinchilla MD [employer] 4700 [place] [address] Valdez, Monica Ni, PT 909 [place] [address] 09/09/2025 2:45 PM CDT Office Visit [address] [phone] Malini Anderson PA-C [address] [place] [address] documented as of this encounter Visit Diagnoses Diagnosis Chronic tension-type headache, intractable Chronic tension type headache Migraine with aura and without status migrainosus, not intractable Migraine with aura, without mention of intractable migraine without mention of status migrainosus documented in this encounter Care Teams Fusion Juncture Grinder Relationship Specialty Start Date End Date Susie Vogt MD PCP - General pulverizing and sifting operator 12/29/18 08/07/23 Alysa Chinchilla MD [employer] [address] [place] [address] PCP - General 08/08/23 03/02/24 Shalom Renteria MD [address] [place] [address] PCP - General Internal Medicine 03/03/24 Devika Fleming MD [address] [place] [address] Assigned Neuroscience Provider 01/28/20 08/26/20 Devika Fleming MD [address] [place] [address] MD Neurology 10/30/21 Dveika Fleming MD [address] [place] [address] Assigned Neuroscience Provider 02/23/22 08/27/23 Shalom Renteria MD [address] [place] [address] Assigned PCP 12/29/23 Melissa Melvin PA-C [address] [address] [place] [address] Physician Device Processing Engineer Gastroenterology 03/03/24 Malini Anderson PA-C [address] [place] [address] Physician Device Processing Engineer 03/03/24 Melissa Melvin PA-C [address] [place] [address] Assigned Gastroenterology Provider 04/29/24 Malini Andersno PA-C [address] [place] [address] Assigned Dermatology Provider 09/27/24 documented as of this encounter
--- OUTSIDE RECORDS SUMMARY | 2025-01-27 19:43 | XMS_ITS | Encounter Summary ---
Author Organization [facility] Address [address] [place] [address] Care Team Providers Care Java Sql Developer Name Role Phone AjpuneetDevika MD Unavailable [phone] Shalom Renteria MD Unavailable Melissa Melvin PA-C Unavailable Shalom Renteria MD Primary Care Provider [phone] Malini Anderson PA-C Unavailable [phone] Melissa Melvin PA-C Unavailable Malini Anderson PA-C Unavailable [phone] Encounter Details Date Type Department Care Team (Latest Contact Info) Description 01/17/2025 Travel Social History Tobacco Use Types Packs/Day [...] in an abandoned building, in an overnight retirement, or couch-surfing.) Yes 11/23/2023 Are you worried [...] Sex Assigned at Female 02/16/2019 10:59 AM COAT BASTER Legal Sex Female 11:51 AM CDT Gender Identity Female 02/16/2019 10:59 AM COAT BASTER Sexual Orientation Bisexual 08/08/2023 1: 47 PM CDT documented as of this encounter Plan of Treatment Upcoming Encounters Date Type Department Care Team (Late st Contact Info) Description 02/14/2025 4:30 PM COAT BASTER Office Visit [facility] Internal Medicine [address] [address] Shalom Renteria MD [address] [place] [address] 02/21/2025 12:30 PM COAT BASTER Therapy Visit [facility] [address] [place], [place] [phone] Alysa Chinchilla MD [facility] [address] [id number] Monica Kellogg, PT [address]09 [place] [address] 03/21/2025 12:30 PM COAT BASTER Therapy Visit [facility] [facility] [address] [place] [address] Alysa Chinchilla MD [employer] [facility] [address] [address] Monica Kellogg, PT [address]09 [place] [address] 09/09/2025 2:45 PM CDT Office Visit [facility] [address] [phone] Malini Anderson PA-C [address] [place] [address] documented as of this encounter Visit Diagnoses Not on filedocumented in this encounter Additional Health Concerns Assessment Noted Time PHQ-9 Depression Total Score: 5 04/07/19 25 2:20 PM COAT BASTER documented as of this encounter Care Teams Java Sql Developer Relationship Specialty Start Date End Date Shalom Renteria MD [address] [place] [address] PCP - General Internal Medicine 03/03/24 Devika Fleming MD [address] [place] [address] Neurology 10/30/21 Shalom Renteria MD [address] [place] [address] Assigned PCP 12/29/23 Melissa Melvin PA-C [address] [place] [address] Physician Traffic Circuit Engineer Gastroenterology 03/03/24 Malini Anderson PA-C [address] [place] [address] Physician Traffic Circuit Engineer 03/03/24 Melissa Melvin PA-C [address] [place] [address] Assigned Gastroenterology Provider 04/29/24 Malini Anderson PA-C [address] [place] [address] 302590 Assigned Dermatology Provider 09/27/24 documented as of this encounter
--- OUTSIDE RECORDS SUMMARY | 2025-01-27 19:43 | XMS_ITS | Encounter Summary ---
Author Organization [facility] Address [address] [place] [address] Care Team Providers Care Drum Tender Name Role Phone AjpuneetDevika MD Unavailable [phone] Shalom Renteria MD Unavailable Melissa Melvin-C Unavailable Shalom Renteria MD Primary Care Provider [phone] Malini Anderson-C Unavailable [phone] Melissa Melvin PA-C Unavailable Malini Anderson-C Unavailable [phone] Encounter Details Date Type Department Care Team (Late st Contact Info) Description 03/17/2024 [facility] Internal Medicine [address] [address] Shalom Renteria MD [address] [place] [address] Social History Tobacco Use Types Packs/Day [...] in an abandoned building, in an overnight jail, or couch-surfing.) Yes 11/23/2023 Are you worried [...] Assigned at Female 02/16/2019 10:59 AM SUPERVISOR FRAME ASSEMBLY Legal Sex Female 11:51 AM CDT Gender Identity Female 02/16/2019 10:59 AM SUPERVISOR FRAME ASSEMBLY Sexual Orientation Bisexual 08/08/2023 1: 47 PM CDT documented as of this encounter Plan of Treatment Upcoming Encounters Date Type Department Care Team (Late st Contact Info) Description 02/14/2025 4:30 PM SUPERVISOR FRAME ASSEMBLY Office Visit [facility] Internal Medicine [address] [address] Shalom Renteria MD [address] [place] [address] 02/21/2025 12:30 PM SUPERVISOR FRAME ASSEMBLY Therapy Visit [address] [place] [address] Alysa Chinchilla MD [address] [address] Monica Kellogg, PT [address] [place] [address] 03/21/2025 12:30 PM SUPERVISOR FRAME ASSEMBLY Therapy Visit [address] [place] [address] Alysa Chinchilla MD [facility] [address] [address] Monica Kellogg, PT [address] [place] [address] 09/09/2025 2:45 PM CDT Office Visit [facility] [address] [phone] Malini Anderson PA-C [address] 1586[address] documented as of this encounter Visit Diagnoses Not on filedocumented in this encounter Additional Health Concerns Assessment Noted Time PHQ-9 Depression Total Score: 9 11/28/19 24 12:43 PM CDT documented as of this encounter Care Teams Drum Tender Relationship Specialty Start Date End Date Shalom Renteria MD [address] [place] [address] PCP - General Internal Medicine 03/03/24 Devika Fleming MD [address] [place] [address] Neurology 10/30/21 Shalom Renteria MD 909 [place] [address] Assigned PCP 12/29/23 Melissa Melvin PA-C [address] [place] [address] Physician Policy Manager Gastroenterology 03/03/24 Malini Anderson PA-C [address] [place] [address] Physician Policy Manager 03/03/24 Melissa Melvin PA-C [address] [place] [address] Assigned Gastroenterology Provider 04/29/24 Malini Anderson PA-C [address] [place] [address] Assigned Dermatology Provider 09/27/24 documented as of this encounter
--- OUTSIDE RECORDS SUMMARY | 2025-01-27 19:43 | XMS_ITS | Encounter Summary ---
Author Organization [facility] Address [address] [place] [address] Care Team Providers Care Flatbed Owner Operator Name Role Phone AjpuneetDevika MD Unavailable [phone] Alysa Chinchilla MD Primary Care Provider [phone] Shalom Renteria MD Unavailable Melissa Melvin PA-C Unavailable Shalom Renteria MD Primary Care Provider [phone] Malini Anderson PA-C Unavailable [phone] Melissa Melvin PA-C Unavailable Malini Anderson PA-C Unavailable [phone] Encounter Details Date Type Department Care Team (Late st Contact Info) Description 12/29/2023 [facility] [address] [place] [address] [address] [place] [address] Kimberly Suh, PT 2200 [place] [address] Social History Tobacco Use Types Packs/Day Years [...] Sex Assigned at Female 02/16/2019 10:59 AM HEAT CURER Legal Sex Female 11:51 AM CDT Gender Identity Female 02/16/2019 10:59 AM HEAT CURER Sexual Orientation Bisexual 08/08/2023 1: 47 PM CDT documented as of this encounter Plan of Treatment Upcoming Encounters Date Type Department Care Team (Late st Contact Info) Description 02/14/2025 4:30 PM HEAT CURER Office Visit [facility] Internal Medicine [address] [address] Shalom Renteria MD [address] [place] [address] 02/21/2025 12:30 PM HEAT CURER Therapy Visit [facility] [address] [place] [address] 140 [place] [address] Alysa Chinchilla MD [facility] [address] [id number] Monica Kellogg Raine, PT 909 [place], [place] [address] 03/21/2025 12:30 PM HEAT CURER Therapy Visit [facility] 2200 [facility] [address] [place] [address] Alysa Chinchilla MD [employer] [facility] 4700 [place] [address] Monica Kellogg Raine, PT 909 [place] [address] 09/09/2025 2:45 PM CDT Office Visit [address] [phone] Malini Anderson PA-C [address] [place] [address] documented as of this encounter Visit Diagnoses Not on filedocumented in this encounter Additional Health Concerns Assessment Noted Time PHQ-9 Depression Total Score: 9 11/28/19 24 12:43 PM CDT documented as of this encounter Care Teams Flatbed Owner Operator Relationship Specialty Start Date End Date Alysa Chinchilla MD [employer] [facility] [address] [place] [address] PCP - General 08/08/23 03/02/24 Shalom Renteria MD [address] [place] [address] PCP - General Internal Medicine 03/03/24 Devika Fleming MD [address] [place] [address] Neurology 10/30/21 Shalom Renteria MD 9 [place] [address] Assigned PCP 12/29/23 Melissa Melvin PA-C [address] [place] [address] Physician Sewing Machine Assembler Gastroenterology 03/03/24 Malini Anderson PA-C [address] [place] [address] Physician Sewing Machine Assembler 03/03/24 Melissa Melvin PA-C [address] [place] [address] Assigned Gastroenterology Provider 04/29/24 Malini Anderson PA-C [address] [place] [address] Assigned Dermatology Provider 09/27/24 documented as of this encounter
--- OUTSIDE RECORDS SUMMARY | 2025-01-27 19:43 | XMS_ITS | Encounter Summary ---
Author Organization [facility] Address [address] [place] [address] Care Team Providers Care Repair Miller Name Role Phone Susie Vogt MD Primary Care Provider Devika Fleming MD Unavailable [phone] Devika Fleming MD Unavailable [phone] Alysa Chinchilla MD Primary Care Provider [phone] Shalom Renteria MD Unavailable Melissa Melvin-C Unavailable Shalom Renteria MD Primary Care Provider [phone] Malini Anderson-C Unavailable [phone] Melissa Melvin-Margarita Unavailable Malini Anderson-C Unavailable [phone] Reason for Visit * Reason Onset Date Comments Refill Request 10/12/2020 Encounter Details Date Type Department Care Team (Late st Contact Info) Description 10/12/2020 [facility] [address] [address] Lali Orr MD [address] [place] [address] 2121 [place] [address] Refill Request Social History Tobacco Use Types Packs/Day Years Used Date Smoking Tobacco: Never Smokeless Tobacco: Never Alcohol Use Standard Drinks/Week Comments Not Currently 0 (1 standard drink = 0.6 oz pur e alcohol) PHQ-2 Answer Date Recorded PHQ-2 Score 2 02/22/2019 Comments Unknown Sex and Gender Information Value Date Recorded Sex Assigned at Female 02/16/2019 10:59 AM STORE HAND Legal Sex Female 11:51 AM CDT Gender Identity Female 02/16/2019 10:59 AM STORE HAND Sexual Orientation Bisexual 08/08/2023 1: 47 PM CDT documented as of this encounter Plan of Treatment Upcoming Encounters Date Type Department Care Team (Late st Contact Info) Description 02/14/2025 4:30 PM STORE HAND Office Visit [facility] Internal Medicine [address] [phone] Shalom Renteria MD [address] [place] [address] 02/21/2025 12:30 PM STORE HAND Therapy Visit [address] [address] Alysa Chinchilla MD [employer] [facility] [address] [address] Monica Kellogg, PT [address] [place] [address] 03/21/2025 12:30 PM STORE HAND Therapy Visit [address] [address] Alysa Chinchilla MD [facility] [address] [address] Monica Kellogg, PT [address] [place] [address] 09/09/2025 2:45 PM CDT Office Visit [facility] [address] [phone] Malini Anderson PA-C [address] [address] documented as of this encounter Visit Diagnoses Diagnosis Chronic tension-type headache, intractable Chronic tension type headache Migraine with aura and without status migrainosus, not intractable Migraine with aura, without mention of intractable migraine without mention of status migrainosus documented in this encounter Care Teams Repair Miller Relationship Specialty Start Date End Date Susie Vogt MD PCP - General folder operator 12/29/18 08/07/23 Alysa Chinchilla MD [facility] [id number] [place] [address] PCP - General 08/08/23 03/02/24 Shalom Renteria MD [address] [place] [address] PCP - General Internal Medicine 03/03/24 Devika Fleming MD [address] [place] [address] Neurology 10/30/21 Devika Fleming MD [address] [place] [address] Assigned Neuroscience Provider 02/23/22 08/27/23 Shalom Renteria MD [address] [place] [address] Assigned PCP 12/29/23 Melissa Melvin PA-C [address] [place] [address] Physician Menagerie Caretaker Gastroenterology 03/03/24 Malini Anderson PA-C [address] [place] [address] Physician Menagerie Caretaker 03/03/24 Melissa Melvin PA-C [address] [place] [address] Assigned Gastroenterology Provider 04/29/24 Malini Anderson PA-C [address] [place] [address] 144830 Assigned Dermatology Provider 09/27/24 documented as of this encounter
--- OUTSIDE RECORDS SUMMARY | 2025-01-27 19:43 | XMS_ITS | Encounter Summary ---
Author Organization [facility] Address [address] [place] [address] Care Team Providers Care Tank Wagon Operator Name Role Phone Susie Vogt MD Primary Care Provider Devika Fleming MD Unavailable [phone] Deviak Fleming MD Unavailable [phone] Alysa Chinchilla MD Primary Care Provider Shalom Renteria MD Unavailable Melissa Melvin-C Unavailable Shalom Renteria MD Primary Care Provider [phone] Malini Anderson-C Unavailable [phone] Melissa Melvin-C Unavailable Malini Anderson-C Unavailable [phone] Encounter Details Date Type Department Care Team (Late st Contact Info) Description 04/24/2022 [facility] [address] [place] [address] Devika Fleming MD [address] [place] [address] Social History Tobacco Use Types Packs/Day Years Used Date Smoking Tobacco: Never Smokeless Tobacco: Never Alcohol Use Standard Drinks/Week Comments Not Currently 0 (1 standard drink = 0.6 oz pur e alcohol) PHQ-2 Answer Date Recorded PHQ-2 Score 2 02/18/2022 Comments Unknown Sex and Gender Information Value Date Recorded Sex Assigned at Female 02/16/2019 10:59 AM DIGITAL MEDIA DIRECTOR Legal Sex Female 11:51 AM CDT Gender Identity Female 02/16/2019 10:59 AM DIGITAL MEDIA DIRECTOR Sexual Orientation Bisexual 08/08/2023 1: 47 PM CDT documented as of this encounter Plan of Treatment Upcoming Encounters Date Type Department Care Team (Late st Contact Info) Description 02/14/2025 4:30 PM DIGITAL MEDIA DIRECTOR Office Visit [facility] Internal Medicine [address] [place] [phone] Shalom Renteria MD [address] [place] [address] 02/21/2025 12:30 PM DIGITAL MEDIA DIRECTOR Therapy Visit [address] [address] Alysa Chinchilla MD [employer] [facility] [address] [address] Monica Kellogg, PT [address] [place] [address] 03/21/2025 12:30 PM DIGITAL MEDIA DIRECTOR Therapy Visit [address] [address] Alysa Chinchilla MD [facility] [address] [address] Monica Kellogg, PT [address] [place] [address] 09/09/2025 2:45 PM CDT Office Visit [address] [phone] Malini Anderson PA-C [address] [address] documented as of this encounter Visit Diagnoses Not on filedocumented in this encounter Care Teams Tank Wagon Operator Relationship Specialty Start Date End Date Susie Vogt MD PCP - General firestopper installer 12/29/18 08/07/23 Alysa Chinchilla MD [facility] [address] [place] [address] PCP - General 08/08/23 03/02/24 Shalom Renteria MD [address] [place] [address] PCP - General Internal Medicine 03/03/24 Devika Fleming MD [address] [place] [address] Neurology 10/30/21 Devika Fleming MD [address] [place] [address] Assigned Neuroscience Provider 02/23/22 08/27/23 Shalom Renteria MD [address] [place] [address] Assigned PCP 12/29/23 Melissa Melvin PA-C [address] [place] [address] Physician Rv Body Mechanic Gastroenterology 03/03/24 Malini Anderson PA-C [address], [place] [address] Physician Rv Body Mechanic 03/03/24 Melissa Melvin PA-C [address] [place] [address] Assigned Gastroenterology Provider 04/29/24 Malini Anderson PA-C [address], [place] [address] Assigned Dermatology Provider 09/27/24 documented as of this encounter
--- OUTSIDE RECORDS SUMMARY | 2025-01-27 19:43 | XMS_ITS | Encounter Summary ---
Author Organization [facility] Address [address] [place] [address] Care Team Providers Care Tube Laser Operator Name Role Phone AjpuneetDevika MD Unavailable [phone] Shalom Renteria MD Unavailable Melissa Melvin PA-C Unavailable Shalom Renteria MD Primary Care Provider [phone] Malini Anderson PA-C Unavailable [phone] Melissa Melvin-Margarita Unavailable Malini Anderson-Margarita Unavailable [phone] Encounter Details Date Type Department Care Team (Late st Contact Info) Description 04/15/2024 [facility] Medical Advice [facility] G[facility] Clinic [address] [place] [address] [place] Social History Tobacco [...] in an abandoned building, in an overnight fci, or couch-surfing.) Yes 11/23/2023 Are you worried [...] Sex Assigned at Female 02/16/2019 10:59 AM CROP GRAIN OR LIVESTOCK FARMER Legal Sex Female 11:51 AM CDT Gender Identity Female 02/16/2019 10:59 AM CROP GRAIN OR LIVESTOCK FARMER Sexual Orientation Bisexual 08/08/2023 1: 47 PM CDT documented as of this encounter Plan of Treatment Upcoming Encounters Date Type Department Care Team (Late st Contact Info) Description 02/14/2025 4:30 PM CROP GRAIN OR LIVESTOCK FARMER Office Visit [facility] [address] [place] [address] Shalom Renteria MD [address] [address] 02/21/2025 12:30 PM CROP GRAIN OR LIVESTOCK FARMER Therapy Visit [facility] Services [address] [place] [address] Alysa Chinchilla MD [employer] [facility] [address] [address] Monica Kellogg, PT [address] [place] [address] 03/21/2025 12:30 PM CROP GRAIN OR LIVESTOCK FARMER Therapy Visit [facility] [address] [place] [address] [address] [place] [address] Alysa Chinchilla MD [employer] [facility] [address] [address] [place] Monica Ni, PT [address] [place] [address] 09/09/2025 2:45 PM CDT Office Visit [address] [phone] Malini Anderson PA-C [address] [place] [address] documented as of this encounter Visit Diagnoses Not on filedocumented in this encounter Additional Health Concerns Assessment Noted Time PHQ-9 Depression Total Score: 5 04/07/19 25 2:20 PM CROP GRAIN OR LIVESTOCK FARMER documented as of this encounter Care Teams Tube Laser Operator Relationship Specialty Start Date End Date Shalom Renteria MD [address] [place] [address] PCP - General Internal Medicine 03/03/24 Devika Fleming MD [address] [place] [address] Neurology 10/30/21 Shalom Renteria MD [address] [place] [address] Assigned PCP 12/29/23 Melissa Melvin PA-C [address] [place] [address] Physician Research Environmental Scientist Gastroenterology 03/03/24 Malini Anderson PA-C [address] [place] [address] Physician Research Environmental Scientist 03/03/24 Melissa Melvin PA-C [address] [place] [address] Assigned Gastroenterology Provider 04/29/24 Malini Anderson PA-C [address] [place] [id number] Assigned Dermatology Provider 09/27/24 documented as of this encounter
--- OUTSIDE RECORDS SUMMARY | 2025-01-27 19:43 | XMS_ITS | Encounter Summary ---
Author Organization [facility] Address [address] [place] [address] Care Team Providers Care Environmental Field Team Member Name Role Phone AjpuneetDevika MD Unavailable [phone] Alysa Chinchilla MD Primary Care Provider Shalom Renteria MD Unavailable Melissa Melvin-C Unavailable Shalom Renteria MD Primary Care Provider Malini Anderson PA-C Unavailable Melissa Melvin PA-C Unavailable Malini Anderson-C Unavailable [phone] Encounter Details Date Type Department Care Team (Late st Contact Info) Description 11/28/2023 [facility] Medical Advice [facility] Internal Medicine [address] [address] Shalom Renteria MD [address] [place] [address] Social History Tobacco Use Types Packs/Day [...] in an abandoned building, in an overnight half-way, or couch-surfing.) Yes 11/23/2023 Are you worried [...] Sex Assigned at Female 02/16/2019 10:59 AM STUDIO OPERATION ENGINEER Legal Sex Female 11:51 AM CDT Gender Identity Female 02/16/2019 10:59 AM STUDIO OPERATION ENGINEER Sexual Orientation Bisexual 08/08/2023 1: 47 PM CDT documented as of this encounter Plan of Treatment Upcoming Encounters Date Type Department Care Team (Late st Contact Info) Description 02/14/2025 4:30 PM STUDIO OPERATION ENGINEER Office Visit [facility] Internal Medicine [address] [address] Shalom Renteria MD [address] [place] [address] 02/21/2025 12:30 PM STUDIO OPERATION ENGINEER Therapy Visit [facility] Rehabilitation Services [facility] [address] [place] [address] [address] [place] [address] Alysa Chinchilla MD [employer] [facility] [address] [address] Monica Kellogg, PT [address] [place] [address] 03/21/2025 12:30 PM STUDIO OPERATION ENGINEER Therapy Visit [facility] [address] [facility] [address] [place] [address] Alysa Chinchilla MD [employer] [facility] [address] [place] [address] Monica Kellogg, PT [address] [place] [address] 09/09/2025 2:45 PM CDT Office Visit [address] [phone] Malini Anderson PA-C [address] [place] [address] documented as of this encounter Visit Diagnoses Not on filedocumented in this encounter Additional Health Concerns Assessment Noted Time PHQ-9 Depression Total Score: 9 11/28/19 24 12:43 PM CDT documented as of this encounter Care Teams Environmental Field Team Member Relationship Specialty Start Date End Date Alysa Chinchilla MD [facility] [address] [place] [address] PCP - General 08/08/23 03/02/24 Shalom Renteria MD [address] [place] [address] PCP - General Internal Medicine 03/03/24 Devika Fleming MD [address] [place] [address] Neurology 10/30/21 Shalom Renteria MD [address] [place] [address] Assigned PCP 12/29/23 Melissa Melvin PA-C [address] [place] [address] Physician Physicist [employer] Gastroenterology 03/03/24 Malini Anderson PA-C [address] [place] [address] Physician Physicist [employer] 03/03/24 Melissa Melvin PA-C [address] [place] [address] Assigned Gastroenterology Provider 04/29/24 Malini Anderson PA-C [address] [place] [address] Assigned Dermatology Provider 09/27/24 documented as of this encounter
[2025-01-27 20:14] LABS: Lactate* 1.7 mmol/L (0.5-1.9)
[2025-01-27 20:17] LABS: Hematocrit* 43.8 % (33.0-51.0); Hemoglobin* 14.9 gm/dL (12.0-16.0); Immature Granulocytes Abs Auto 0.02 K/uL (0.00-0.30); Immature Granulocytes Pct Auto 0.2 %; Mean Corpuscular HGB Conc 34 gm/dL (32-36); Mean Corpuscular Hemoglobin 30 pg (26-34); Mean Corpuscular Volume 88 fL (80-100); RDW Coefficient of Variation % 11.6 % (11.5-15.5); Red Blood Count* 4.99 m/uL (4.00-5.20); White Blood Count* 9.68 K/uL (4.50-11.00)
[2025-01-27 20:18] LABS: Lymphocytes Absolute Auto 0.40 K/uL (0.90-2.90); Slide Review Reflex No
[2025-01-27 20:31] LABS: Chloride* 103 mmol/L (96-114); Potassium* 3.3 mmol/L (3.6-5.1); Sodium* 136 mmol/L (135-149)
[2025-01-27 20:33] LABS: Appearance Urine Clear (Clear)
[2025-01-27 20:34] LABS: Anion Gap 13 mEq/L (7-15); Blood Urea Nitrogen* 7 mg/dL (5-24); Calcium* 9.0 mg/dL (8.4-10.6); Carbon Dioxide* 20 mmol/L (20-32); Creatinine* 0.9 mg/dL (0.5-1.5); Est. Creatinine Clearance* 80.80; Estimated Glomerular Filt Rate 83 ml/min; Glucose* 98 mg/dL (60-115); INR 1.05 (0.91-1.10); Prothrombin Time 14.5 Seconds
[2025-01-27 20:37] LABS: D Dimer Quantitative* 0.56 ug/ml (0.00-0.50)
[2025-01-27 20:55] LABS: NT Pro B Type NatriureticPept* 156 pg/mL (See Note)
--- NOTE | 2025-01-27 21:11 | CRLHL7_ITS ---
For Patients: As a result of the Century Cures Act, medical imaging exams and procedure reports are released immediately into your electronic medical record. You may view this report before your referring provider. If you have questions, please contact your health care provider. INDICATION: Shortness of breath, tachycardia, elevated D-dimer. TECHNIQUE: CT chest PE was acquired with 95 cc Isovue 370 IV contrast. MIP reconstructions were performed. COMPARISON: None. FINDINGS: Heart and vasculature: Contrast opacification of the pulmonary arterial tree is adequate. No sign of pulmonary embolism. Heart size is normal. Thoracic aorta and pulmonary artery are normal in caliber. Right IJ catheter with tip in the superior cavoatrial junction. Lungs and pleura: No suspicious nodules or infiltrates. No pleural effusions, pleural thickening, or pneumothorax. Lymph nodes/mediastinum: No mediastinal, hilar, or axillary adenopathy. Chest wall: No masses. Upper abdomen: No acute or significant findings. Bones: Unremarkable for age. IMPRESSION: No pulmonary embolism as questioned. No focal consolidations. Please note that all CT scans at this facility use dose modulation, iterative reconstruction, and/or weight-based dosing when appropriate to reduce radiation dose to as low as reasonably achievable. Dictated by Chapito Leroy MD @ 01/27/2025 10:02:38 PM (Electronically Signed)
--- NOTE | 2025-01-27 21:25 | ED.ARRPALP ---
HPI - Arrhythmia/Palpitations General Date Seen: 01/28/25 Chief Complaint: Arrhythmia/Palpitations Stated Complaint: fast heartrate, numbness Time Seen by Provider: 01/27/25 19:46 Source: patient, family, EMS, RN notes reviewed and old records reviewed Mode of arrival: ambulatory Limitations: no limitations History of Present Illness HPI narrative: Patient is a delightful 39-year-old female presents here with the tachycardia, she also has a history of POTS syndrome, is an indwelling a central line in gets fluids twice a week. She tested positive for COVID today. This coincides with her feeling of kind chills, cold-like symptoms, and setting off her POTS, she also has a history of mast cell activation syndrome, Chase-Danlos syndrome, PCOS migraine presents here by EMS with her mother. She has no history of chest pain or shortness of breath associated with this, and says the symptoms she is occurring now 10 to be more with her POTS. She has no history of previous DVTs or pulmonary emboli. Denies any abdominal pain shortness of breath, exertional dyspnea, hemoptysis, nausea vomiting, history of any cardiac problems. Or pulmonary issues. Denies any leg swelling, recent immobilization. She is on oral contraceptives however. Other medications are reviewed. Related Data Home Medications ?Medication ?Instructions ?Recorded ?Confirmed levonorgestrel 17.5 mcg/24 hr (up 1 device intrauterine ONCE 12/13/21 01/27/25 to 5 yrs) 19.5mg intrauterine device cetirizine 10 mg capsule (Zyrtec) 10 mg PO TID 05/05/23 01/27/25 cholecalciferol (vitamin D3) 125 125 mcg PO QDAY 05/05/23 01/27/25 mcg (5,000 unit) capsule cimetidine 200 mg tablet 200 mg PO BID 05/05/23 01/27/25 magnesium citrate 100 mg capsule 400 mg PO QDAY 05/05/23 01/27/25 naltrexone 4.5 mg capsule 6.5 mg PO QDAY 05/05/23 01/27/25 quercetin 500 mg capsule 500 mg PO BID 05/05/23 01/27/25 riboflavin (vitamin B2) 100 mg 100 mg PO QDAY 05/05/23 01/27/25 tablet fludrocortisone 0.1 mg tablet 0.2 mg PO DAILY 08/25/23 01/27/25 ondansetron HCl 4 mg tablet 4 mg PO Q8H PRN nausea and vomiting 08/25/23 01/27/25 clonidine HCl 0.2 mg tablet 0.2 mg PO QHS 10/17/23 01/27/25 cromolyn 100 mg/5 mL oral 100 - 200 mg PO QID 06/11/24 01/27/25 concentrate prednisone 20 mg tablet 40 mg PO DAILY PRN 01/27/25 01/27/25 Previous Rx's ?Medication ?Instructions ?Recorded tirzepatide 7.5 mg/0.5 mL 7.5 mg (0.5 mL) subcut QWEEK #2 mL 11/11/24 subcutaneous pen injector Allergies Allergy/AdvReac Type Severity Reaction Status Date / Time adhesive Allergy Intermediate blister, Verified 01/27/25 21:53 itching amoxicillin (From Augmentin) Allergy Intermediate Nausea Verified 01/27/25 21:53 clavulanic acid (From Allergy Intermediate Nausea Verified 01/27/25 21:53 Augmentin) buspirone Allergy Mild Rash Verified 01/27/25 21:53 Latex, Natural Rubber Allergy Verified 01/27/25 21:53 loratadine (From Claritin) AdvReac stomachache Verified 01/27/25 21:53 Review of Systems Status of ROS: Reports: 10 or more systems reviewed and unremarkable except as noted in History and below [facility] Medical History Rash ?R21 - Rash and other nonspecific skin eruption (ICD-10) PCOS (polycystic ovarian syndrome) ?E28.2 - Polycystic ovarian syndrome (ICD-10) History of depression ?Z86.59 - Personal history of other mental and behavioral disorders (ICD-10) Seasonal allergies ?J30.2 - Other seasonal allergic rhinitis (ICD-10) IUD (intrauterine device) in place ?Z97.5 - Presence of (intrauterine) contraceptive device (ICD-10) Obesity with body mass index greater than 30 ?E66.9 - Obesity, unspecified (ICD-10) Hyperlipidemia ?E78.5 - Hyperlipidemia, unspecified (ICD-10) Localized scleroderma ?L94.0 - Localized scleroderma [morphea] (ICD-10) Breakthrough bleeding associated with intrauterine device (IUD) ?N92.1 - Excessive and frequent menstruation with irregular cycle (ICD-10) ?Z97.5 - Presence of (intrauterine) contraceptive device (ICD-10) Menometrorrhagia ?N92.1 - Excessive and frequent menstruation with irregular cycle (ICD-10) Mast cell activation syndrome ?D89.40 - Mast cell activation, unspecified (ICD-10) 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, unspecified (ICD-10) Dysautonomia ?G90.1 - Familial dysautonomia [Mario-Day] (ICD-10) POTS (postural orthostatic tachycardia syndrome) ?G90.A - Postural orthostatic tachycardia syndrome [POTS] (ICD-10) Pre-diabetes ?R73.03 - Prediabetes (ICD-10) Migraine with aura ?G43.109 - Migraine with aura, not intractable, without status migrainosus (ICD-10) History of spontaneous (2016) ?Z87.59 - Personal history of other complications of , childbirth and the puerperium (ICD-10) History of pre-eclampsia ?Z87.59 - Personal history of other complications of , childbirth and the puerperium (ICD-10) History of gestational hypertension ?Z87.59 - Personal history of other complications of , childbirth and the puerperium (ICD-10) Surgical History History of placement of ear tubes (09/15/15) ?Z96.22 - Myringotomy tube(s) status (ICD-10) History of laparoscopic cholecystectomy (01/2013) ?Z90.49 - Acquired absence of other specified parts of digestive tract (ICD-10) History of ?Z98.891 - History of uterine scar from previous surgery (ICD-10) Family History Mother Heart disease High blood pressure Depression Maternal Grandmother Breast cancer Ovarian cancer Maternal Grandfather Stroke Social History Narrative: . Master's degree education. Non smoker. Denies alcohol use or recreational drug use. No concerns with safety or abuse. What is your current living situation?: I presently have a place to live Problems where you live: no known problems In the past 12 months, utilities in danger of being shut off: no In past 12 months, lack of transportation kept you from medical appts, meetings, work, or getting things needed for daily living: no In the past 12 mos, have been you worried that your food would run out before you had money to buy more?: never true In the past 12 mos, the food you bought just didn't last and you didn't have money to buy more?: often true Smoking Status: Never smoker How often do you have a drink containing alcohol: monthly or less AUDIT-C Alcohol total score: 1 Non-prescribed substance use: denies use How often does anyone, including family, friends and others, physically hurt you: never How often does anyone, including family, friends and others, insult or talk down to you: never How often does anyone, including family, friends and others, threaten you with harm: never How often does anyone, including family, friends and others, scream or curse at you: never Do you think of yourself as: straight/heterosexual Gender Identity: female Are you currently sexually active: Yes Health Related Social Needs: food insecurity (Z59.41) Exam Narrative: Exam Narrative: On examination in room 5 she is in no apparent distress she is pleasant alert, pupils equal round reactive to light there is no scleral icterus redness her TMs bilaterally normal oropharynx is normal there is no adenopathy anterior posterior chains her chest is good air entry bilaterally no wheezing crackles noted her heart sounds no clicks murmurs or gallops, her abdomen is soft and benign there is no guarding no organomegaly. Bowel sounds are normal she moves all extremities independently well with absence of edema, negative Homans signs no rashes. Const: Vital Signs, click to edit/add: Vital Signs - 24 hr 01/27/25 19:44 01/27/25 19:54 01/27/25 20:18 Temperature 100 F H Pulse Rate 115 H Pulse Rate [Pulse Oximeter] 115 H Respiratory Rate 19 Blood Pressure Blood Pressure [Ri ght Upper Arm] 146/86 H Pulse Oximetry 100 100 99 Oxygen Delivery Me thod Room Air 01/27/25 20:20 01/27/25 20:30 01/27/25 20:45 Temperature Pulse Rate 114 H 106 H 105 H Pulse Rate [Pulse Oximeter] Respiratory Rate 16 16 16 Blood Pressure 147/96 H Blood Pressure [Ri ght Upper Arm] Pulse Oximetry 99 100 100 Oxygen Delivery Me thod 01/27/25 21:00 01/27/25 21:15 01/27/25 21:39 Temperature Pulse Rate Pulse Rate [Pulse Oximeter] Respiratory Rate 18 12 14 Blood Pressure Blood Pressure [Ri ght Upper Arm] Pulse Oximetry Oxygen Delivery Me thod 01/27/25 21:45 01/27/25 21:55 01/27/25 22:01 Temperature Pulse Rate 115 H 115 H Pulse Rate [Pulse Oximeter] Respiratory Rate 13 20 16 Blood Pressure 131/95 H 146/96 H Blood Pressure [Ri ght Upper Arm] Pulse Oximetry Oxygen Delivery Me thod 01/27/25 22:31 01/27/25 22:45 01/27/25 23:01 Temperature Pulse Rate Pulse Rate [Pulse Oximeter] Respiratory Rate 16 18 18 Blood Pressure 143/102 H 132/100 H Blood Pressure [Ri ght Upper Arm] Pulse Oximetry Oxygen Delivery Me thod 01/27/25 23:32 Temperature Pulse Rate Pulse Rate [Pulse Oximeter] Respiratory Rate 14 Blood Pressure 127/89 Blood Pressure [Ri ght Upper Arm] Pulse Oximetry Oxygen Delivery Me thod Course Vital Signs Vital signs: Initial Vital Signs Temperature 100 F H 01/27/25 19:44 Temperature Source Temporal Artery Scan 01/27/25 19:44 Pulse Rate 115 H 01/27/25 19:44 Pulse Rhythm Regular 01/27/25 19:44 Respiratory Rate 19 01/27/25 19:44 Blood Pressure 146/86 H 01/27/25 19:44 Blood Pressure Mean 106 H 01/27/25 19:44 Blood Pressure Position Semi-Fowlers 01/27/25 19:44 Pulse Oximetry 100 01/27/25 19:44 Oxygen Delivery Method Room Air 01/27/25 19:44 Vital Signs Temperature 100 F H 01/27/25 19:44 Pulse Rate 115 H 01/27/25 19:44 Respiratory Rate 19 01/27/25 19:44 Blood Pressure 146/86 H 01/27/25 19:44 Pulse Oximetry 100 01/27/25 19:44 Oxygen Delivery Method Room Air 01/27/25 19:44 Temperature 100 F H 01/27/25 19:44 Pulse Rate 115 H 01/27/25 22:01 Respiratory Rate 14 01/27/25 23:32 Blood Pressure 127/89 01/27/25 23:32 Pulse Oximetry 100 01/27/25 20:45 Oxygen Delivery Method Room Air 01/27/25 19:44 Medications Administered Medications: Discontinued Medications Generic Name Dose Route Start Last Admin Trade Name Freq PRN Reason Stop Dose Admin Heparin Sodium (Porcine) 500 unit 01/27/25 22:12 01/27/25 22:33 Heparin 500 Unit/5 Ml Syringe IVF 01/27/25 22:13 500 unit ONCE ONE Administration Sodium Chloride 1,000 mls @ 1,000 mls/hr 01/27/25 20:00 01/27/25 21:31 0.9 % Sodium Chloride 1000 Ml IV 01/27/25 20:59 Infused .Q1H FRANK Infusion Sodium Chloride 1,000 mls @ 1,000 mls/hr 01/27/25 20:15 01/27/25 22:33 0.9 % Sodium Chloride 1000 Ml IV 01/27/25 21:14 Infused .Q1H FRANK Infusion MDM - Arrhythmia/Palpitations MDM Narrative Medical decision making narrative: Differential diagnosis includes but is not limited to psychosocial stress, thyroid abnormalities, CHF, SVT, atrial fibrillation, ventricular tachycardia and ventricular fibrillation. This includes the life-threatening complications of heart failure, V-tach, and VFib Medical Records Attestation: I reviewed the patient's medical records. Lab Data Attestation: I reviewed the patient's lab results. Labs: Lab Results 01/27/25 01/27/25 01/27/25 Range/Units 20:06 20:18 22:42 WBC 9.68 (4.50-11.00) K/uL RBC 4.99 (4.00-5.20) m/uL Hgb 14.9 (12.0-16.0) gm/dL Hct 43.8 (33.0-51.0) % MCV 88 (80-100) fL MCH 30 (26-34) pg MCHC 34 (32-36) gm/dL RDW Coeff of Timothy 11.6 (11.5-15.5) % Plt Count 211 (140-440) K/uL Neut % (Auto) 91.8 H (42.0-72.0) % Lymph % (Auto) 3.7 L (20-44) % [place] % (Auto) 4.0 (0.0-11.0) % Eos % (Auto) 0.2 (0.0-7.0) % Baso % (Auto) 0.1 (0.0-3.0) % Neut # (Auto) 8.90 H (1.7-7.0) K/uL Lymph # (Auto) 0.40 L (0.90-2.90) K/uL [place] # (Auto) 0.40 (0.00-0.90) K/UL Eos # (Auto) 0.02 (0.00-0.50) K/uL Baso # (Auto) 0.01 (0.00-0.30) K/uL Abs Immat Gran (auto) 0.02 (0.00-0.30) K/uL Imm/Tot Granulo (auto) 0.2 % INR 1.05 (0.91-1.10) APTT 37 H (23-33) Seconds D-Dimer Quant (PE/DVT) 0.56 H (0.00-0.50) ug/ml Sodium 136 (135-149) mmol/L Potassium 3.3 L (3.6-5.1) mmol/L Chloride 103 (96-114) mmol/L Carbon Dioxide 20 (20-32) mmol/L Anion Gap 13 (7-15) mEq/L BUN 7 (5-24) mg/dL Creatinine 0.9 (0.5-1.5) mg/dL Estimated Creat Clear 80.80 Estimated GFR 83 ml/min Glucose 98 (60-115) mg/dL Lactate 1.7 (0.5-1.9) mmol/L Calcium 9.0 (8.4-10.6) mg/dL C-Reactive Protein 2.5 H (0.5-1.0) mg/dL NT-Pro-B Natriuret Pep 156 (See Note) pg/mL Urine Color Yellow (Yellow) Urine Appearance Clear (Clear) Urine pH 7.5 (5.0-8.5) Ur Specific [place] 1.010 (1.000-1.030) Urine Protein Negative (Negative) Urine Glucose (UA) Negative (Negative) Urine Ketones 2+ A (Negative) Urine Blood Negative (Negative) Urine Nitrite Negative (Negative) Urine Bilirubin Negative (Negative) Urine Urobilinogen 0.2 (0.2-1.0) Ur Leukocyte Esterase Negative (Negative) Urine RBC 0-2 (0-2) Urine WBC 0-2 (0-5) Ur Squamous Epith Cells Few (None-Few) Urine Bacteria None (None) POC Troponin I 0.01 (0.01-0.04) ng/ml Second troponin 000s 2. At this point we can send her home. Her chest CT is negative, Imaging Data CT scan - chest: Attestation: I have reviewed the pertinent imaging results. My impression: No acute finding Radiologist's impression: [place] [address] Diagnostic Imaging Report Patient: Linda Valente MR#: [id number] : 1985 Acct:[id number] Loc: ED Service Date: 01/27/[address]: Ordering Physician: Arben Solares M.D. Date of Service: 01/27/25 Procedure(s): CT angio chest PE protocol Accession Number(s): [id number] cc: Janay Qureshi M.D.; Arben Solares M.D.~ For Patients: As a result of the Cures Act, medical imaging exams and procedure reports are released immediately into your electronic medical record. You may view this report before your referring provider. If you have questions, please contact your health care provider. INDICATION: Shortness of breath, tachycardia, elevated D-dimer. TECHNIQUE: CT chest PE was acquired with 95 cc Isovue 370 IV contrast. MIP reconstructions were performed. COMPARISON: None. FINDINGS: Heart and vasculature: Contrast opacification of the pulmonary arterial tree is adequate. No sign of pulmonary embolism. Heart size is normal. Thoracic aorta and pulmonary artery are normal in caliber. Right IJ catheter with tip in the superior cavoatrial junction. Lungs and pleura: No suspicious nodules or infiltrates. No pleural effusions, pleural thickening, or pneumothorax. Lymph nodes/mediastinum: No mediastinal, hilar, or axillary adenopathy. Chest wall: No masses. Upper abdomen: No acute or significant findings. Bones: Unremarkable for age. IMPRESSION: No pulmonary embolism as questioned. No focal consolidations. Please note that all CT scans at this facility use dose modulation, iterative reconstruction, and/or weight-based dosing when appropriate to reduce radiation dose to as low as reasonably achievable. Dictated by Chapito Leroy MD @ 01/27/2025 10:02:38 PM (Electronically Signed) ECG Data Attestation: I personally reviewed and interpreted this ECG as follows: ECG interpretation date: 01/28/25 Interpretation: Sinus tachycardia with a ventricular rate of 115, QRS is 82 milliseconds, no acute ST wave changes, QT is 344 and QTC is 475. Assessment mild sinus tachycardia. Discharge Plan Discharge Clinical Impression: POTS (postural orthostatic tachycardia syndrome), Tachycardia Patient Disposition: Home w/ Parent or Adult Condition: Stable Instructions: Tachycardia (ED), POTS (Postural Orthostatic Tachycardia Syndrome) (ED) Additional Instructions: Home rest, you were little bit dry and likely the COVID is also kicking year but so to speak. I think using Tylenol regularly and continuing with her fluids is the best thing, return here if increasing fevers chills nausea vomiting or other symptoms, but given your Dysautonomia I think this is likely intake a little bit of time for improvement. Activity Level: Light activity Discharge Diet: Regular Prescriptions: No Action cromolyn 100 mg/5 mL concentrate 100 - 200 mg PO QID levonorgestrel 17.5 mcg/24 hrs (5 yrs) 19.5 mg intrauterine device 1 device intrauterine ONCE Zyrtec 10 mg capsule 10 mg PO TID naltrexone 4.5 mg capsule 6.5 mg PO QDAY cimetidine 200 mg tablet 200 mg PO BID riboflavin (vitamin B2) 100 mg tablet 100 mg PO QDAY magnesium citrate 100 mg capsule 400 mg PO QDAY quercetin 500 mg capsule 500 mg PO BID cholecalciferol (vitamin D3) 125 mcg (5,000 unit) capsule 125 mcg PO QDAY fludrocortisone 0.1 mg tablet 0.2 mg PO DAILY ondansetron HCl 4 mg tablet 4 mg PO Q8H PRN (Reason: nausea and vomiting) Rx Instructions: use for nausea related to migraine clonidine HCl 0.2 mg tablet 0.2 mg PO QHS prednisone 20 mg tablet 40 mg PO DAILY PRN tirzepatide 7.5 mg/0.5 mL pen injector 7.5 mg subcut QWEEK Qty: 2 0RF Follow Up/Referrals: Janay Qureshi MD [Primary Care Provider, Family Practice] Stand Alone Forms: Visuu Info Instructions
[2025-01-27] MEDS: HEPARIN 500 UNIT/5 ML SYRINGE IVF (22:33)
[2025-01-27 23:21] LABS: Troponin, Point-of-Care* 0.01 ng/ml (0.01-0.04)
== END 2025-01-28 | disposition home or self-care (01) ==
PROVIDERS: Emergency Provider Family Medicine; PCP Family Medicine
DX: G90.A Postural orthostatic tachycardia syndrome [POTS] (principal); U07.1 COVID-19
CPT/HCPCS: 36415; 71275; 80048; 81001; 83605; 83880; 84484; 85025; 85379; 85610; 85730; 86140; 93005; 94761; 96361; 96374; 99285; J1642; J7030; Q9967

== ENCOUNTER 2025-02-13 23:38 | Emergency (ER) | payer BC, SELFPAY ==
--- OUTSIDE RECORDS SUMMARY | 2025-01-17 10:00 | XMS_ITS | Encounter Summary ---
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] Hypermobility syndrome [M35.7] 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] Chronic pain [G89.29] / Alysa Chinchilla MD/PF Procedures CHASE DANLOS TREATMENT [address] [address] Phone: tel: Referral ID Status Reason Start Date Expiration Date V isits Requested Visits Authorized [id number] Authorized 05/12/2024 04/06/2025 365 365 Encounter Details Date Type Department Care Team (Late st Contact Info) Description 01/17/2025 11:00 AM CDT Therapy Visit [facility] [address] [place] [address] [address] [place] [address] Alysa Chinchilla MD [employer] CARES [facility] [address] [facility] [place] [address] Valdez Monica Ni, PT [address] [place] [address] Chase-Danlos syndrome (Primary Dx) Social History Tobacco [...] in an abandoned building, in an overnight skilled nursing, or couch-surfing.) Yes 11/23/2023 Are you worried [...] Sex Assigned at Female 02/16/2019 10:59 AM POLICE SERGEANT PRECINCT Legal Sex Female 11:51 AM CDT Gender Identity Female 02/16/2019 10:59 AM POLICE SERGEANT PRECINCT Sexual Orientation Bisexual 08/08/2023 1: 47 PM CDT documented as of this encounter Plan of Treatment Upcoming Encounters Date Type Department Care Team (Late st Contact Info) Description 02/21/2025 12:30 PM POLICE SERGEANT PRECINCT Therapy Visit [address] [address] Alysa Chinchilla MD [employer] [address] [address] Monica Kellogg, PT [address] [place] [address] 03/21/2025 12:30 PM POLICE SERGEANT PRECINCT Therapy Visit [address] [address] Alysa Chinchilla MD [employer] [facility]ES [address] [address] Monica Kellogg, PT [address] [place] [address] 05/02/2025 4:30 PM POLICE SERGEANT PRECINCT Office Visit [facility] Internal Medicine [address] 4th [place] [phone] Shalom Renteria MD [address] [place] [address] 09/09/2025 2:45 PM CDT Office Visit [place] [address] [place] [address] Malini Anderson PA-C [address] [place] [address] documented as of this encounter Visit Diagnoses Diagnosis Chase-Danlos syndrome- Primary documented in this encounter Additional Health Concerns Assessment Noted Time PHQ-9 Depression Total Score: 5 04/07/19 25 2:20 PM POLICE SERGEANT PRECINCT documented as of this encounter Care Teams Overweaver Relationship Specialty Start Date End Date Shalom Renteria MD [address] [place] [address] PCP - General Internal Medicine 03/03/24 Devika Fleming MD [address] [place] [address] Neurology 10/30/21 Shalom Renteria MD [address] [place] [address] Assigned PCP 12/29/23 Melissa Melvin PA-C [address] [place] [address] Physician Storage Management Architect Gastroenterology 03/03/24 Malini Anderson PA-C [address] [place] [address] Physician Storage Management Architect 03/03/24 Melissa Melvin PA-C [address] [place] [address] Assigned Gastroenterology Provider 04/29/24 Malini Anderson PA-C [address] [place] [address] Assigned Dermatology Provider 09/27/24 documented as of this encounter
--- OUTSIDE RECORDS SUMMARY | 2025-01-17 10:00 | XMS_ITS | Encounter Summary ---
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] Hypermobility syndrome [M35.7] 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] Chronic pain [G89.29] / Alysa Chinchilla MD/PF Procedures CHASE DANLOS TREATMENT [address] [address] Phone: tel: Referral ID Status Reason Start Date Expiration Date V isits Requested Visits Authorized [id number] Authorized 05/12/2024 04/06/2025 365 365 Encounter Details Date Type Department Care Team (Late st Contact Info) Description 01/17/2025 11:00 AM CDT Therapy Visit [facility] [address] [place] [address] [address] [place] [address] Alysa Chinchilla MD [employer] [facility]ES [facility] [address] [facility] [place] [address] Valdez Monica Ni, PT [address] [place] [address] Chase-Danlos syndrome (Primary Dx) Social History Tobacco [...] Sex Assigned at Female 02/16/2019 10:59 AM CERTIFIED ADAPTIVE PHYSICAL EDUCATOR Legal Sex Female 11:51 AM CDT Gender Identity Female 02/16/2019 10:59 AM CERTIFIED ADAPTIVE PHYSICAL EDUCATOR Sexual Orientation Bisexual 08/08/2023 1: 47 PM CDT documented as of this encounter Plan of Treatment Upcoming Encounters Date Type Department Care Team (Late st Contact Info) Description 02/21/2025 12:30 PM CERTIFIED ADAPTIVE PHYSICAL EDUCATOR Therapy Visit [address] [address] Alysa Chinchilla MD [employer] [address] [address] Monica Kellogg, PT [address] [place] [address] 03/21/2025 12:30 PM CERTIFIED ADAPTIVE PHYSICAL EDUCATOR Therapy Visit [address] [address] Alysa Chinchilla MD [employer] CARES [address] [address] Monica Kellogg, PT [address] [place] [address] 05/02/2025 4:30 PM CERTIFIED ADAPTIVE PHYSICAL EDUCATOR Office Visit [facility] Internal Medicine [address] 4th [place] [phone] Shalom Renteria MD [address] [place] [address] 09/09/2025 2:45 PM CDT Office Visit [place] [address] [place] [address] Malini Anderson PA-C [address] [place] [address] documented as of this encounter Visit Diagnoses Diagnosis Chase-Danlos syndrome- Primary documented in this encounter Additional Health Concerns Assessment Noted Time PHQ-9 Depression Total Score: 5 04/07/19 25 2:20 PM CERTIFIED ADAPTIVE PHYSICAL EDUCATOR documented as of this encounter Care Teams Assembler Convertible Top Relationship Specialty Start Date End Date Shalom Renteria MD [address] [place] [address] PCP - General Internal Medicine 03/03/24 Devika Fleming MD [address] [place] [address] Neurology 10/30/21 Shalom Renteria MD [address] [place] [address] Assigned PCP 12/29/23 Melissa Melvin PA-C [address] [place] [address] Physician Practicing Md Anesthesiologist Gastroenterology 03/03/24 Malini Anderson PA-C [address] [place] [address] Physician Practicing Md Anesthesiologist 03/03/24 Melissa Melvin PA-C [address] [place] [address] Assigned Gastroenterology Provider 04/29/24 Malini Anderson PA-C [address] [place] [address] Assigned Dermatology Provider 09/27/24 documented as of this encounter
--- OUTSIDE RECORDS SUMMARY | 2025-02-07 04:08 | XMS_ITS | Continuity of Care Document ---
Author Organization [facility] Address [address] [address] [place] [address] Phone Care Team Providers Care [employer] Installer Name Role Phone Sebastian Rose MD Unavailable Unavailabl e Allergies, Adverse Reactions, Alerts Substance Reaction Status [...] 81 MG - Active Procedures Procedure Date Small Bowel PillCam Capsule 1st Day Colonoscopy Flex; W/bx 1/mx Ugi Endo; W/bx 1/mx Level Iv-surg Path Gross/micro 25 Offic/outpt E&m New Low Advance Directives Directive Yes / No Effective Date File Name No Information Encounters Encounter Description Practice Location Reason(s) For Visit Diagnoses Date Provider Providers Copied on Encounter [facility], [address] [address], [place], [id number], [place] tel:[phone] [facility] No Information 5 Devan Cortes. [address], [place], [id number] , [place]. tel: [phone] [facility], [address] [address], [place], [id number], [place] tel:[phone] [facility] Diarrhea, unspecified 5 Oliverio Fischer. [address], [place], [id number] , [place]. tel: [phone] Referring Provider: Natali Mahoney MD, [address], [place], [address] . tel:[phone] [facility], [address] [address], [place], [id number], [place] tel:[phone] [facility] No Information 5 Denzel Hurst. [address], [address], [place], [id number] , [place]. tel:[phone] Referring Provider: Referral Self, USE FOR SELF REFERRALS. [facility], [address] [address], [place], [id number], [place] tel:[phone] [facility] GI Symptoms or Concerns (chief complaint) Other fecal abnormalitiesEpig astric painNauseaEpigast giancarlo painOther fecal abnormalitiesDiar anderson, unspecifiedChroni c idiopathic constipationBenig n neoplasm of rectumNauseaEpiga stric painEncounter for screening colonoscopy 5 Denzel Hurst. [address], [facility] [address], [place], [id number] , [place]. tel:[phone] Referring Provider: Referral Self, USE FOR SELF REFERRALS. [facility], [address] [address], [place], [id number], [place] tel:[phone] [facility] NauseaDyspepsiaEl evated fecal calprotectin 5 Denzel Hurst. [address], [address], [place], [place], [id number] , [place]. tel:[phone] Referring Provider: Referral Self, USE FOR SELF REFERRALS. Offic/outpt E&m [facility], [address] [address], [place], [id number], [place] tel:[phone] [facility] GI Symptoms or Concerns (chief complaint) NauseaDyspepsiaCh ronic idiopathic constipationDiarr hea, unspecified type 5 Denzel Hurst. [address], [address], [place], [place], [id number] , [place]. tel:[phone] Referring Provider: Shalom Camacho, [address] [place] [address], [place], [address]. tel:[phone] Family History Family Member Type Diagnosis Age At Onset No Information Payers Payer name Insurance type Covered green party ID Michele floyd(s) Dany Mora [facility] [id number] Social History Type Description Quantity Date Captured Comments Sex Female Smoking Status No Information Chief Complaint And Reason For Visit No Information Reason For Referral Reason For Referral No Information Plan Of Treatment Date Type Action Status Appointment Linda Valente BOOKED History Of Present Illness Encounter Date Complaint History Of Present Illness GI Symptoms or Concerns GI Symptoms or Concerns Martin is a [...] 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 No nicotine, alcohol. Uses medical marijuana. Follows a low histamine, gluten light, lactose light diet.FAMILY HISTORYPaternal family history unknown. Mother does not seek health care regularly. Functional Status Date Functional Assessmen t No Information Instructions Date Instruction Additional Infor pablo Colon Cancer Prevention Related to Other fecal abnormalities Colon Polyps Related to Other fecal abnormalities Assessments Type Assessment Date No Information Patient Care Teams Name Effective Dates (start - stop) Status Members No Information
--- OUTSIDE RECORDS SUMMARY | 2025-02-07 04:08 | XMS_ITS | Continuity of Care Document ---
Author Organization [facility] Address [address] [address] [place] [address] Phone Care Team Providers Care Clinical Review Nurse Name Role Phone Sebastian Rose MD Unavailable [...] Diagnoses Date Provider Providers Copied on Encounter [facility], [address] [address], [place], [id number], [place] tel:[phone] [facility] No Information 5 Devan Cortes. [address] [facility], [place], [id number] , [place]. tel: [phone] [facility], [address] [address], [place], [id number], [place] tel:[phone] [facility] Diarrhea, unspecified 5 Oliverio Fischer. [address] [facility], [place], [id number] , [place]. tel: [phone] Referring Provider: Natali Mahoney MD, [address] [facility] [address], [place], [address] . tel:[phone] [facility], [address] [address], [place], [id number], [place] tel:[phone] [facility] No Information 5 Denzel Hurst. [address] [facility], [address], [place], [id number] , [place]. tel:[phone] Referring Provider: Referral Self, USE FOR SELF REFERRALS. [facility], [address] [address], [place], [id number], [place] tel:[phone] [facility] GI Symptoms or Concerns (chief complaint) Other fecal abnormalitiesEpig astric painNauseaEpigast giancarlo painOther fecal abnormalitiesDiar anderson, unspecifiedChroni c idiopathic constipationBenig n neoplasm of rectumNauseaEpiga stric painEncounter for screening colonoscopy 5 Denzel Hurst. [address] [facility], [facility] [address], [place], [id number] , [place]. tel:[phone] Referring Provider: Referral Self, USE FOR SELF REFERRALS. [facility], [address] [address], [place], [id number], [place] tel:[phone] [facility] NauseaDyspepsiaEl evated fecal calprotectin 5 Denzel Hurst. [address] [facility], [address], [place], [id number] , [place]. tel:[phone] Referring Provider: Referral Self, USE FOR SELF REFERRALS. Offic/outpt E&m [facility], [address] [address], [place], [id number], [place] tel:[phone] [facility] GI Symptoms or Concerns (chief complaint) NauseaDyspepsiaCh ronic idiopathic constipationDiarr hea, unspecified type 5 Denzel Hurst. [address] [facility], [address], [place], [place], [id number] , [place]. tel:[phone] Referring Provider: Shalom Camacho, [address] [place] [address], [place], [address]. 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 Uses [...]
--- OUTSIDE RECORDS SUMMARY | 2025-02-13 23:40 | XMS_ITS | Encounter Summary ---
Author Organization [facility] Address [address] [place] [address] Care Team Providers Care Arranger Assembler Name Role Phone AjpuneetDevika MD Unavailable [phone] Alysa Chinchlila MD Primary Care Provider [phone] Shalom Renteria MD Unavailable Melissa Melvin-C Unavailable Shalom Renteria MD Primary Care Provider [phone] Malini Anderson PA-C Unavailable [phone] Melissa Melvin-C Unavailable Malini Anderson-C Unavailable [phone] Encounter Details Date Type Department Care Team (Late st Contact Info) Description 11/28/2023 [facility] Medical Advice [facility] Internal Medicine [address] [address] Shalom Renteria MD [address] [place] [address] Social History Tobacco Use Types Packs/Day [...] Date Recorded Do you have housing? (Francesca g is defined as stable permanent housing and does not include staying outside in a car, in a tent, in an abandoned building, in an overnight detention, or couch-surfing.) Yes 11/23/2023 Are you worried [...] Sex Assigned at Female 02/16/2019 10:59 AM LINER MACHINE OPERATOR HELPER Legal Sex Female 11:51 AM CDT Gender Identity Female 02/16/2019 10:59 AM LINER MACHINE OPERATOR HELPER Sexual Orientation Bisexual 08/08/2023 1: 47 PM CDT documented as of this encounter Plan of Treatment Upcoming Encounters Date Type Department Care Team (Late st Contact Info) Description 02/21/2025 12:30 PM LINER MACHINE OPERATOR HELPER Therapy Visit [address] [address] Alysa Chinchilla MD [facility] [address] [address] Monica Kellogg, PT 909 [place] [address] 03/21/2025 12:30 PM LINER MACHINE OPERATOR HELPER Therapy Visit [address] [address] Alysa Chinchilla MD [facility] [address] [place] [address] Valdez Monica Ni, PT [address] [place] [address] 05/02/2025 4:30 PM LINER MACHINE OPERATOR HELPER Office Visit [facility] Internal Medicine [address] 4th [place] [address] Shalom Renteria MD [address] [place] [address] 5704[address] 09/09/2025 2:45 PM CDT Office Visit [facility] [address] [phone] Malini Anderson PA-C [address] [place] [address] documented as of this encounter Visit Diagnoses Not on filedocumented in this encounter Additional Health Concerns Assessment Noted Time PHQ-9 Depression Total Score: 9 11/28/19 24 12:43 PM CDT documented as of this encounter Care Teams Arranger Assembler Relationship Specialty Start Date End Date Alysa Chinchilla MD [employer] [facility] [address] [place] [address] PCP - General 08/08/23 03/02/24 Shalom Renteria MD [address] [place] [address] 149325 PCP - General Internal Medicine 03/03/24 Devika Fleming MD [address] [place] [address] 677655 Neurology 10/30/21 Shalom Renteria MD [address] [place] [address] Assigned PCP 12/29/23 Melissa Melvin PA-C [address] [place] [address] Physician Rope Cutter Gastroenterology 03/03/24 Malini Anderson PA-C [address] [place] [address] Physician Rope Cutter 03/03/24 Melissa Melvin PA-C [address] [place] [address] Assigned Gastroenterology Provider 04/29/24 Malini Anderson PA-C [address] [place] [address] Assigned Dermatology Provider 09/27/24 documented as of this encounter
--- OUTSIDE RECORDS SUMMARY | 2025-02-13 23:40 | XMS_ITS | Encounter Summary ---
Author Organization [facility] Address [address] [place] [address] Care Team Providers Care Extension Course Coordinator Name Role Phone AjpuneetDevika MD Unavailable [phone] Shalom Renteria MD Unavailable Melissa Melvin-C Unavailable Shalom Renteria MD Primary Care Provider [phone] Malini Anderson-C Unavailable [phone] Melissa Melvin PA-C Unavailable Malini Anderson-C Unavailable [phone] Encounter Details Date Type Department Care Team (Late st Contact Info) Description 03/17/2024 [facility] Internal Medicine [address] [address] Shalom Renteria MD [address] [place] [address] Social History Tobacco Use Types Packs/Day [...] Sex Assigned at Female 02/16/2019 10:59 AM SELF SEALING FUEL TANK REPAIRER Legal Sex Female 11:51 AM CDT Gender Identity Female 02/16/2019 10:59 AM SELF SEALING FUEL TANK REPAIRER Sexual Orientation Bisexual 08/08/2023 1: 47 PM CDT documented as of this encounter Plan of Treatment Upcoming Encounters Date Type Department Care Team (Late st Contact Info) Description 02/21/2025 12:30 PM SELF SEALING FUEL TANK REPAIRER Therapy Visit [facility] [address] [place] [address] [address] [place] [address] Alysa Chinchilla MD [address] [place] [address] Valdez Monica Ni, PT 909 [place] [address] 03/21/2025 12:30 PM SELF SEALING FUEL TANK REPAIRER Therapy Visit [facility] [address] [facility] [address] [place] [address] Alysa Chinchilla MD [address] [address] Valdez, Monica Ni, PT 909 [place] [address] 05/02/2025 4:30 PM SELF SEALING FUEL TANK REPAIRER Office Visit [facility] Internal Medicine [address] 4th [place] [phone] Shalom Renteria MD [address] [place] [address] 09/09/2025 2:45 PM CDT Office Visit [facility] [address] [phone] Malini Anderson PA-C [address] 652250 documented as of this encounter Visit Diagnoses Not on filedocumented in this encounter Additional Health Concerns Assessment Noted Time PHQ-9 Depression Total Score: 9 11/28/19 24 12:43 PM CDT documented as of this encounter Care Teams Extension Course Coordinator Relationship Specialty Start Date End Date Shalom Renteria MD [address] [place] [address] PCP - General Internal Medicine 03/03/24 Devika Fleming MD [address] [place] [address] Neurology 10/30/21 Shalom Renteria MD 909 [place] [address] Assigned PCP 12/29/23 Melissa Melvin PA-C [address] [place] [address] Physician Account Developer Gastroenterology 03/03/24 Malini Anderson PA-C [address] [place] [address] Physician Account Developer 03/03/24 Melissa Melvin PA-C [address] [place] [address] Assigned Gastroenterology Provider 04/29/24 Malini Anderson PA-C [address] [place] [address] Assigned Dermatology Provider 09/27/24 documented as of this encounter
--- OUTSIDE RECORDS SUMMARY | 2025-02-13 23:40 | XMS_ITS | Encounter Summary ---
Author Organization [facility] Address [address] [place] [address] Care Team Providers Care Card Checker Name Role Phone Susie Vogt MD Primary Care Provider Devika Fleming MD Unavailable Devika Fleming MD Unavailable [phone] Devika Fleming MD Unavailable Alysa Chinchilla MD Primary Care Provider [phone] Shalom Renteria MD Unavailable Melissa Melvin-C Unavailable Shalom Renteria MD Primary Care Provider [phone] Malini Anderson-C Unavailable [phone] Melissa Melvin-C Unavailable Malini Anderson-C Unavailable [phone] Reason for Visit * Reason Onset Date Comments Refill Request 07/17/2019 Encounter Details Date Type Department Care Team (Late st Contact Info) Description 07/17/2019 [facility] Neurology 9[address] [facility] 3rd [place] [address] Devika Fleming MD 909 [place] [address] Refill Request Social History Tobacco Use Types Packs/Day Years Used Date Smoking Tobacco: Never Smokeless Tobacco: Never Alcohol Use Standard Drinks/Week Comments Not Currently 0 (1 standard drink = 0.6 oz pur e alcohol) PHQ-2 Answer Date Recorded PHQ-2 Score 2 02/22/2019 Comments Unknown Sex and Gender Information Value Date Recorded Sex Assigned at Female 02/16/2019 10:59 AM SPECIAL EFFECTS DESIGNER Legal Sex Female 11:51 AM CDT Gender Identity Female 02/16/2019 10:59 AM SPECIAL EFFECTS DESIGNER Sexual Orientation Bisexual 08/08/2023 1: 47 PM CDT documented as of this encounter Plan of Treatment Upcoming Encounters Date Type Department Care Team (Late st Contact Info) Description 02/21/2025 12:30 PM SPECIAL EFFECTS DESIGNER Therapy Visit [address] [address] Alysa Chinchilla MD [facility] [address] [address] Monica Kellogg, PT [address] [place] [address] 03/21/2025 12:30 PM SPECIAL EFFECTS DESIGNER Therapy Visit [address] [address] Alysa Chinchilla MD [facility] [address] [address] Monica Kellogg, PT [address] [place] [address] 05/02/2025 4:30 PM SPECIAL EFFECTS DESIGNER Office Visit [facility] Internal Medicine [address] 4th [place] [phone] Shalom Renteria MD [address] [place] [address] 09/09/2025 2:45 PM CDT Office Visit [facility] [address] [phone] Malini Anderson PA-C [address] [address] documented as of this encounter Visit Diagnoses Diagnosis Chronic tension-type headache, intractable Chronic tension type headache Migraine with aura and without status migrainosus, not intractable Migraine with aura, without mention of intractable migraine without mention of status migrainosus documented in this encounter Care Teams Card Checker Relationship Specialty Start Date End Date Susie Vogt MD PCP - General social service manager 12/29/18 08/07/23 Alysa Chinchilla MD [facility] [id number] [place] [address] PCP - General 08/08/23 03/02/24 Shalom Renteria MD [address] [place] [address] PCP - General Internal Medicine 03/03/24 Devika Fleming MD [address] [place] [address] Assigned Neuroscience Provider 01/28/20 08/26/20 Devika Fleming MD [address] [place] [address] Neurology 10/30/21 Devika Fleming MD [address] [place] [address] Assigned Neuroscience Provider 02/23/22 08/27/23 Shalom Renteria MD 909 [place] [address] Assigned PCP 12/29/23 Melissa Melvin PA-C [address] [place] [address] Physician Account Development Specialist Gastroenterology 03/03/24 Malini Anderson PA-C [address] [place] [address] Physician Account Development Specialist 03/03/24 Melissa Melvin PA-C [address] [address] [place] [address] Assigned Gastroenterology Provider 04/29/24 Malini Anderson PA-C [address] [place] [address] Assigned Dermatology Provider 09/27/24 documented as of this encounter
--- OUTSIDE RECORDS SUMMARY | 2025-02-13 23:40 | XMS_ITS | Encounter Summary ---
Author Organization [facility] Address [address] [place] [address] Care Team Providers Care Puddler Helper Name Role Phone AjpuneetDevika MD Unavailable [phone] Alysa Chinchilla MD Primary Care Provider [phone] Shalom Renteria MD Unavailable Melissa Melvin PA-C Unavailable Shalom Renteria MD Primary Care Provider [phone] Malini Anderson PA-C Unavailable [phone] Melissa Melvin PA-C Unavailable Malini Anderson PA-C Unavailable [phone] Encounter Details Date Type Department Care Team (Late st Contact Info) Description 12/29/2023 [facility] Medical Advice [facility] [address] [place] [address] [address] [place] [address] Kimberly Suh, PT [address] [place] [address] Social History Tobacco Use Types Packs/Day Years [...] Sex Assigned at Female 02/16/2019 10:59 AM MOVEMENT ASSEMBLY FINAL INSPECTOR Legal Sex Female 11:51 AM CDT Gender Identity Female 02/16/2019 10:59 AM MOVEMENT ASSEMBLY FINAL INSPECTOR Sexual Orientation Bisexual 08/08/2023 1: 47 PM CDT documented as of this encounter Plan of Treatment Upcoming Encounters Date Type Department Care Team (Late st Contact Info) Description 02/21/2025 12:30 PM MOVEMENT ASSEMBLY FINAL INSPECTOR Therapy Visit [address] [address] Alysa Chinchilla MD [facility] [address] [address] Monica Kellogg, PT 909 [place] [address] 03/21/2025 12:30 PM MOVEMENT ASSEMBLY FINAL INSPECTOR Therapy Visit [address] [address] Alysa Chinchilla MD [facility] 4700 [place] [address] Valdez Monica Ni, PT [address] [place] [address] 05/02/2025 4:30 PM MOVEMENT ASSEMBLY FINAL INSPECTOR Office Visit [facility] Internal Medicine [address] 4th [place] [phone] Shalom Renteria MD [address] [place] [address] 09/09/2025 2:45 PM CDT Office Visit [address] [phone] Malini Anderson PA-C [address] [place] [address] documented as of this encounter Visit Diagnoses Not on filedocumented in this encounter Additional Health Concerns Assessment Noted Time PHQ-9 Depression Total Score: 9 11/28/19 24 12:43 PM CDT documented as of this encounter Care Teams Puddler Helper Relationship Specialty Start Date End Date Alysa Chinchilla MD [facility] [address] [place] [address] PCP - General 08/08/23 03/02/24 Shalom Renteria MD [address] [place] [address] 839005 PCP - General Internal Medicine 03/03/24 Devika Fleming MD [address] [place] [address] Neurology 10/30/21 Shalom Renteria MD 9 [place] [address] Assigned PCP 12/29/23 Melissa Melvin PA-C [address] [place] [address] Physician Wax Bleacher Gastroenterology 03/03/24 Malini Anderson PA-C [address] [place] [address] Physician Wax Bleacher 03/03/24 Melissa Melvin PA-C [address] [place] [address] Assigned Gastroenterology Provider 04/29/24 Malini Anderson PA-C [address] [place] [address] Assigned Dermatology Provider 09/27/24 documented as of this encounter
--- OUTSIDE RECORDS SUMMARY | 2025-02-13 23:40 | XMS_ITS | Encounter Summary ---
Author Organization [facility] Address [address] [place] [address] Care Team Providers Care Sanitation Worker Hosing Machinery Name Role Phone AjpuneetDevika MD Unavailable [phone] Shalom Renteria MD Unavailable Melissa Melvin PA-C Unavailable Shalom Renteria MD Primary Care Provider [phone] Malini Anderson PA-C Unavailable [phone] Melissa Melvin PA-C Unavailable Malini Anderson PA-C Unavailable [phone] Encounter Details Date Type Department Care Team [...] Sex Assigned at Female 02/16/2019 10:59 AM DISTANCE LEARNING PROGRAM COORDINATOR Legal Sex Female 11:51 AM CDT Gender Identity Female 02/16/2019 10:59 AM DISTANCE LEARNING PROGRAM COORDINATOR Sexual Orientation Bisexual 08/08/2023 1: 47 PM CDT documented as of this encounter Plan of Treatment Upcoming Encounters Date Type Department Care Team (Late st Contact Info) Description 02/21/2025 12:30 PM DISTANCE LEARNING PROGRAM COORDINATOR Therapy Visit [address] [address] Alysa Chinchilla MD [facility] [address] [address] Monica Kellogg, PT 909 [place] [address] 03/21/2025 12:30 PM DISTANCE LEARNING PROGRAM COORDINATOR Therapy Visit [address] [address] Alysa Chinchilla MD [facility] 4700 [place] [address] Valdez Monica Ni, PT [address] [place] [address] 05/02/2025 4:30 PM DISTANCE LEARNING PROGRAM COORDINATOR Office Visit [facility] Internal Medicine [address] 4th [place] [phone] Shalom Renteria MD [address] [place] [address] 09/09/2025 2:45 PM CDT Office Visit [facility] [address] [phone] Malini Anderson PA-C [address] [place] [address] documented as of this encounter Visit Diagnoses Not on filedocumented in this encounter Additional Health Concerns Assessment Noted Time PHQ-9 Depression Total Score: 5 04/07/19 25 2:20 PM DISTANCE LEARNING PROGRAM COORDINATOR documented as of this encounter Care Teams Sanitation Worker Hosing Machinery Relationship Specialty Start Date End Date Shalom Renteria MD [address] [place] [address] PCP - General Internal Medicine 03/03/24 Devika Fleming MD [address] [place] [address] Neurology 10/30/21 Shalom Renteria MD [address] [place] [address] Assigned PCP 12/29/23 Melissa Melvin PA-C [address] [place] [address] Physician Tab Cutting Machine Operator Gastroenterology 03/03/24 Malini Anderson PA-C [address] [place] [address] Physician Tab Cutting Machine Operator 03/03/24 Melissa Melvin PA-C [address] [place] [address] Assigned Gastroenterology Provider 04/29/24 Malini Anderson PA-C [address] [place] [address] 722330 Assigned Dermatology Provider 09/27/24 documented as of this encounter
--- OUTSIDE RECORDS SUMMARY | 2025-02-13 23:40 | XMS_ITS | Encounter Summary ---
Author Organization [facility] Address [address] [place] [address] Care Team Providers Care Nurse Consultant Name Role Phone AjpuneetDevika MD Unavailable [phone] Shalom Renteria MD Unavailable Melissa Melvin-C Unavailable Shalom Renteria MD Primary Care Provider [phone] Malini Anderson-C Unavailable [phone] Melissa Melvin-C Unavailable Malini Anderson-C Unavailable [phone] Encounter Details Date Type Department Care Team (Late st Contact Info) Description 03/29/2024 [facility]ice [address] [address] Yecenia Jones Social History Tobacco [...] Sex Assigned at Female 02/16/2019 10:59 AM VALET PARKING ATTENDANT Legal Sex Female 11:51 AM CDT Gender Identity Female 02/16/2019 10:59 AM VALET PARKING ATTENDANT Sexual Orientation Bisexual 08/08/2023 1: 47 PM CDT documented as of this encounter Plan of Treatment Upcoming Encounters Date Type Department Care Team (Late st Contact Info) Description 02/21/2025 12:30 PM VALET PARKING ATTENDANT Therapy Visit [facility] [address] [place] [address] [address] [place] [address] Alysa Chinchilla MD [employer] [facility] [address] [address] Monica Kellogg, PT 909 [place], [place] [address] 03/21/2025 12:30 PM VALET PARKING ATTENDANT Therapy Visit [facility] [address] [facility] [address] [place] [address] Alysa Chinchilla MD [facility] 4700 [place] [address] Monica Kellogg, PT [address] [place] [address] 05/02/2025 4:30 PM VALET PARKING ATTENDANT Office Visit [facility] Internal Medicine [address] 4th [place] [phone] Shalom Renteria MD [address] [place] [address] 975595 09/09/2025 2:45 PM CDT Office Visit [facility] [address] [phone] Malini Anderson PA-C [address] [place] [address] 946890 documented as of this encounter Visit Diagnoses Not on filedocumented in this encounter Additional Health Concerns Assessment Noted Time PHQ-9 Depression Total Score: 9 11/28/19 12:43 PM CDT documented as of this encounter Care Teams Nurse Consultant Relationship Specialty Start Date End Date Shalom Renteria MD [address] [place] [address] 743315 PCP - General Internal Medicine 03/03/24 Devika Fleming MD [address] [place] [address] Neurology 10/30/21 Shalom Renteria MD 909 [place] [address] Assigned PCP 12/29/23 Melissa Melvin PA-C [address] [place] [address] Physician Public Relations Analyst Gastroenterology 03/03/24 Malini Anderson PA-C [address] [place] [address] Physician Public Relations Analyst 03/03/24 Melissa Melvin PA-C [address] [place] [address] Assigned Gastroenterology Provider 04/29/24 Malini Anderson PA-C [address] [place] [address] 382510 Assigned Dermatology Provider 09/27/24 documented as of this encounter
--- OUTSIDE RECORDS SUMMARY | 2025-02-13 23:40 | XMS_ITS | Clinical Summary ---
Author Organization [facility] Address [address] [place] [address] Care Team Providers Care Coffee Sampler Name Role Phone No Primary/Referring, Phy Primary Care Provider Unavailable Source Comments You are receiving this document as you are listed as the primary care provider,follow-up provider, or the patient has been referred to you for consultation.This is in compliance with the Medicare and[facility] EHR Incentive Program,which states Providers who transition their patient to another setting of careor provider of care or refers their patient to another provider of care shouldprovide summary care record for each transition of care or referral. [facility] Allergies Active Allergy Reactions Criticality Noted Date [...] Comments Blood Pressure 115/90 03/11/2016 8:45 PM SCRATCHER TENDER Pulse 87 03/11/2016 8:45 PM SCRATCHER TENDER Temperature 36.4 C (97.5 F) 03/11/2016 8:44 PM SCRATCHER TENDER Respiratory Rate 22 03/11/2016 8:44 PM SCRATCHER TENDER Oxygen Saturation 96% 03/11/2016 8:44 PM SCRATCHER TENDER Inhaled Oxygen Concentration - - Weight 107 kg (236 lb) 03/11/2016 8:44 PM SCRATCHER TENDER Height 168.9 cm (5' 6.5) 03/11/2016 8:44 PM SCRATCHER TENDER Body Mass Index 37.52 03/11/2016 8:44 PM SCRATCHER TENDER Plan of Treatment Health Maintenance Due Date [...] this topic Insurance SELF INSURED Care Teams Coffee Sampler Relationship Specialty Start Date End Date No Primary/Referring, Phy PCP - General 03/11/16
--- OUTSIDE RECORDS SUMMARY | 2025-02-13 23:40 | XMS_ITS | Encounter Summary ---
Author Organization [facility] Address [address] [place] [address] Care Team Providers Care Windshield Technician Name Role Phone AjpuneetDevika MD Unavailable [phone] Shalom Renteria MD Unavailable Melissa Melvin PA-C Unavailable Shalom Renteria MD Primary Care Provider [phone] Malini Anderson PA-C Unavailable [phone] Melissa Melvin PA-C Unavailable Malini Anderson PA-C Unavailable [phone] Encounter Details Date Type Department Care Team [...] Sex Assigned at Female 02/16/2019 10:59 AM SUPPLY PLANNER Legal Sex Female 11:51 AM CDT Gender Identity Female 02/16/2019 10:59 AM SUPPLY PLANNER Sexual Orientation Bisexual 08/08/2023 1: 47 PM CDT documented as of this encounter Plan of Treatment Upcoming Encounters Date Type Department Care Team (Late st Contact Info) Description 02/21/2025 12:30 PM SUPPLY PLANNER Therapy Visit [address] [address] Alysa Chinchilla MD [facility] [address] [address] Monica Kellogg, PT [address] [place] [address] 03/21/2025 12:30 PM SUPPLY PLANNER Therapy Visit [address] [address] Alysa Chinchilla MD [facility] [address] [place] [address] Valdez Monica Ni, PT [address] [place] [address] 05/02/2025 4:30 PM SUPPLY PLANNER Office Visit [facility] Internal Medicine [address] 4th [place] [phone] Shalom Renteria MD [address] [place] [address] 09/09/2025 2:45 PM CDT Office Visit [facility] [address] [phone] Malini Anderson PA-C [address] [place] [address] documented as of this encounter Visit Diagnoses Not on filedocumented in this encounter Additional Health Concerns Assessment Noted Time PHQ-9 Depression Total Score: 5 04/07/19 25 2:20 PM SUPPLY PLANNER documented as of this encounter Care Teams Windshield Technician Relationship Specialty Start Date End Date Shalom Renteria MD [address] [place] [address] PCP - General Internal Medicine 03/03/24 Devika Fleming MD [address] [place] [address] Neurology 10/30/21 Shalom Renteria MD [address] [place] [address] Assigned PCP 12/29/23 Melissa Melvin PA-C [address] [place] [address] Physician It Application Development Manager Gastroenterology 03/03/24 Malini Anderson PA-C [address] [place] [address] Physician It Application Development Manager 03/03/24 Melissa Melvin PA-C [address] [place] [address] Assigned Gastroenterology Provider 04/29/24 Malini Anderson PA-C [address] [place] [address] [id number] Assigned Dermatology Provider 09/27/24 documented as of this encounter
--- OUTSIDE RECORDS SUMMARY | 2025-02-13 23:40 | XMS_ITS | Clinical Summary ---
Author Organization [facility] Address [address] [place] [address] Care Team Providers Care State Tested Nursing Assistant Name Role Phone Unavailable Primary Care Provider Unavailabl e Allergies Active Allergy Reactions Criticality Noted Date [...] on file Legal Sex Female 5:26 AM .NET DEVELOPER Gender Identity Not on file Sexual Orientation [...] Comments Blood Pressure 102/64 04/21/2023 2:08 PM .NET DEVELOPER Pulse 96 04/21/2023 2:08 PM .NET DEVELOPER Temperature 36.4 C (97.6 F) 05/12/2017 3:29 PM .NET DEVELOPER Respiratory Rate 16 07/17/2018 12:1 2 PM CDT Oxygen Saturation 100% 04/21/2023 2:08 PM .NET DEVELOPER Inhaled Oxygen Concentration - - Weight 108.1 kg (238 lb 6.4 oz) 04/21/2023 2:08 PM .NET DEVELOPER Height 170 cm (5' 6.93) 04/21/2023 2:08 PM .NET DEVELOPER Body Mass Index 37.42 04/21/2023 2:08 PM .NET DEVELOPER Plan of Treatment Health Maintenance Due Date [...] 01/27/2023, 05/12/2017, Additional history exists Influenza Vaccine (#1) 2024 3, 02/05/2022, 02/14/2021, Additional history exists Pap test for age 21-65 05/05/2026 4 ([facility] 10/15/2019, 10/15/2019, Additional history exists Tetanus booster 07/15/2028 07/15/2018, 12/0 05/2010, 07/27/1996 RSV vaccine for adults or (1 - 1-dose 75+ series) 2059 Hepatitis B series for 19+ Completed 02/13, 08/08/1998, 07/07/1998 Pneumococcal series for age 6-49 Aged Out No longer eligible based on patient's age to complete this topic Procedures Procedure Name Priority Date/Time Associated Diagnosis Comments DISTRIBUTION WAREHOUSE MANAGER THIN PREP PAP SCREEN IMAGED Routine 10/15/2019 2:00 PM CDT from Last 3 Months or Most Recently Relevant to Health Maintenance Results * DISTRIBUTION WAREHOUSE MANAGER THIN PREP PAP SCREEN IMAGED (10/15/2019 2:00 PM CDT) Case Report Gynecologic Cytology Report Case: [id number] Authorizing Provider: Susie Vogt MD Collected: 10/15/2019 1400 Ordering Location: [facility] Received: 10/19/2019 0948 First Screen: Giovanny Perea Specimen: DISTRIBUTION WAREHOUSE MANAGER ThinPrep Vial Screening, Cervical/Vaginal 10/20/2019 12:34 PM CDT [facility] INTERPRETATION/ RESULT NEGATIVE FOR INTRAEPITHELIAL LESION OR MALIGNANCY (NIL) (none) 10/20/2019 12:34 PM CDT [facility] ENTRAL LABORATORY at 1234 CDT SPECIMEN ADEQUACY Satisfactory for evaluation Endocervical component present 10/20/2019 12:34 PM CDT [facility] HPV REQUEST HPV and PAP 10/20/2019 12:34 PM CDT [facility] ENTRAL LABORATORY Last Pap Date 07/24/2010 10/20/2019 12:34 PM CDT [facility] Open CS LABORATORY ENTRAL LABORATORY Last Pap Result NIL 0 12:34 PM CDT [facility] ENTRAL LABORATORY Menstrual Status 10/20/2019 12:34 PM CDT [facility] Comment:IUD Additional Information 10/20/2019 12:34 PM CDT [facility] Comment: Interpreted at [facility] - [address] [place] [address], [place] [address] Automated Review Successful 10/20/2019 12:34 PM CDT [facility] ENTRAL LABORATORY Comment:Specimen processed s uccessfully by automated transfer car operator device, [employer] NetworksPrep Imaging System, [employer] ANCILLARY TESTING DISTRIBUTION WAREHOUSE MANAGER HPV Ordered, Please see separate report 10/20/2019 12:34 PM CDT [facility] ENTRAL LAB[facility] Note The pap test is a [...] and malignant lesions. 10/20/2019 12:34 PM CDT [facility] ENTRIA LABORATORY Other (Cervical/Vagina l) 10/15/2019 2:00 PM CDT 10/19/2019 9:48 AM CDT us Susie Vogt MD PATHOLOGY/CYTOLOGY Final R esult [facility] [address] [place] [address], [place] from Last 3 Months or Most Recently Relevant to Health Maintenance Insurance [facility] OF [employer]-[place]-[employer] WORKERS COMP
--- OUTSIDE RECORDS SUMMARY | 2025-02-13 23:40 | XMS_ITS | Encounter Summary ---
Author Organization [facility] Address [address] [place] [address] Care Team Providers Care Professor Of Art Name Role Phone Susie Vogt MD Primary Care Provider Devika Fleming MD Unavailable Devika Fleming MD Unavailable Devika Fleming MD Unavailable Alysa Chinchilla MD Primary Care Provider Shalom Renteria MD Unavailable Melissa Melvin-C Unavailable Shalom Renteria MD Primary Care Provider Malini Anderson-C Unavailable [phone] Melissa Melvin-C Unavailable Malini Anderson-C Unavailable [phone] Encounter Details Date Type Department Care Team (Late st Contact Info) Description 06/02/2019 [facility] Neurology [address] [facility] [address] [place] [address] Devika Fleming MD [address] [place] [address] Social History Tobacco Use Types Packs/Day Years Used Date Smoking Tobacco: Never Smokeless Tobacco: Never Alcohol Use Standard Drinks/Week Comments Not Currently 0 (1 standard drink = 0.6 oz pur e alcohol) PHQ-2 Answer Date Recorded PHQ-2 Score 2 02/22/2019 Comments Unknown Sex and Gender Information Value Date Recorded Sex Assigned at Female 02/16/2019 10:59 AM WOOL PRESSER Legal Sex Female 11:51 AM CDT Gender Identity Female 02/16/2019 10:59 AM WOOL PRESSER Sexual Orientation Bisexual 08/08/2023 1: 47 PM CDT documented as of this encounter Plan of Treatment Upcoming Encounters Date Type Department Care Team (Late st Contact Info) Description 02/21/2025 12:30 PM WOOL PRESSER Therapy Visit [address] [address] Alysa Chinchilla MD [employer] [facility] [address] [address] Monica Kellogg, PT [address] [place] [address] 03/21/2025 12:30 PM WOOL PRESSER Therapy Visit [address] [address] Alysa Chinchilla MD [employer] [facility] [address] [address] Monica Kellogg, PT [address] [place] [address] 05/02/2025 4:30 PM WOOL PRESSER Office Visit [facility] Internal Medicine [address] [phone] Shalom Renteria MD [address] [place] [address] 09/09/2025 2:45 PM CDT Office Visit [facility] [address] [phone] Malini Anderson PA-C [address] [place] [address] documented as of this encounter Visit Diagnoses Not on filedocumented in this encounter Care Teams Professor Of Art Relationship Specialty Start Date End Date Susie Vogt MD PCP - General records and tape recordings engineer 12/29/18 08/07/23 Alysa Chinchilla MD [facility] [address] [place] [address] PCP - General 08/08/23 03/02/24 Shalom Renteria MD [address] [place] [address] PCP - General Internal Medicine 03/03/24 Devika Fleming MD [address] [place] [address] Assigned Neuroscience Provider 01/28/20 08/26/20 Devika Fleming MD [address] [place] [address] Neurology 10/30/21 Devika Fleming MD [address] [place] [address] Assigned Neuroscience Provider 02/23/22 08/27/23 Shalom Renteria MD [address] [place] [address], [place] [address] Assigned PCP 12/29/23 Melissa Melvin PA-C [address] [place] [address] Physician Mapping Technician Gastroenterology 03/03/24 Malini Anderson PA-C [address] [place] [address] Physician Mapping Technician 03/03/24 Melissa Melvin PA-C [address] [place] [address] Assigned Gastroenterology Provider 04/29/24 Malini Anderson PA-C [address] [place] [address] Assigned Dermatology Provider 09/27/24 documented as of this encounter
--- OUTSIDE RECORDS SUMMARY | 2025-02-13 23:40 | XMS_ITS | Encounter Summary ---
Author Organization [facility] Address [address] [place] [address] Care Team Providers Care Property Man Name Role Phone AjpuneetDevika MD Unavailable [phone] Shalom Renteria MD Unavailable Melissa Melvin PA-C Unavailable Shalom Renteria MD Primary Care Provider [phone] Malini Anderson-C Unavailable [phone] Melissa Melvin PA-C Unavailable Malini Anderson PA-C Unavailable [phone] Encounter Details Date Type Department Care Team (Late st Contact Info) Description 03/08/2024 [facility] Medical Advice [facility] [address] [place] [address] [address] [place] [address] Kimberly Suh, PT [address] [place] [address] Social History Tobacco Use Types Packs/Day Years [...] Assigned at Female 02/16/2019 10:59 AM ENERGY PROJECT ENGINEER Legal Sex Female 11:51 AM CDT Gender Identity Female 02/16/2019 10:59 AM ENERGY PROJECT ENGINEER Sexual Orientation Bisexual 08/08/2023 1: 47 PM CDT documented as of this encounter Plan of Treatment Upcoming Encounters Date Type Department Care Team (Late st Contact Info) Description 02/21/2025 12:30 PM ENERGY PROJECT ENGINEER Therapy Visit [address] [place] [address] Alysa Chinchilla MD [facility] [address] [address] Joy Kellogghan Raine, PT [address] [place] [address] 03/21/2025 12:30 PM ENERGY PROJECT ENGINEER Therapy Visit [facility] [address] [facility] [address] [place] [address] Alysa Chinchilla MD [address] [address] Valdez, Monica Ni, PT [address] [place] [address] 05/02/2025 4:30 PM ENERGY PROJECT ENGINEER Office Visit [facility] Internal Medicine [address] 4th [place] [phone] Shalom Renteria MD [address] [place] [address] 09/09/2025 2:45 PM CDT Office [facility] [address] [phone] Malini Anderson PA-C [address] [place] [address] documented as of this encounter Visit Diagnoses Not on filedocumented in this encounter Additional Health Concerns Assessment Noted Time PHQ-9 Depression Total Score: 9 11/28/19 24 12:43 PM CDT documented as of this encounter Care Teams Property Man Relationship Specialty Start Date End Date Shalom Renteria MD [address] [place] [address] PCP - General Internal Medicine 03/03/24 Devika Fleming MD [address] [place] [address] MD Neurology 10/30/21 Shalom Renteria MD [address] [place] [address] Assigned PCP 12/29/23 Melissa Melvin PA-C [address] [place] [address] Physician Telecine Operator Gastroenterology 03/03/24 Malini Anderson PA-C [address] [place] [address] Physician Telecine Operator 03/03/24 Melissa Melvin PA-C [address] [facility] [address] Assigned Gastroenterology Provider 04/29/24 Malini Anderson PA-C [address] [place] [address] Assigned Dermatology Provider 09/27/24 documented as of this encounter
--- OUTSIDE RECORDS SUMMARY | 2025-02-13 23:40 | XMS_ITS | Encounter Summary ---
Author Organization [facility] Address [address] [place] [address] Care Team Providers Care Box Sealing Machine Catcher Name Role Phone AjpuneetDevika MD Unavailable [phone] Shalom Renteria MD Unavailable Melissa Melvin-C Unavailable Shalom Renteria MD Primary Care Provider [phone] Malini Anderson-C Unavailable [phone] Melissa Melvin PA-C Unavailable Malini Anderson-C Unavailable [phone] Encounter Details Date Type Department Care Team (Late st Contact Info) Description 12/03/[address] [facility] [address] [facility] Internal Medicine [address] [address] Shalom Renteria MD [address] [place] [address] Social History Tobacco Use Types Packs/Day [...] Sex Assigned at Female 02/16/2019 10:59 AM PAN DEVULCANIZER HELPER Legal Sex Female 11:51 AM CDT Gender Identity Female 02/16/2019 10:59 AM PAN DEVULCANIZER HELPER Sexual Orientation Bisexual 08/08/2023 1: 47 PM CDT documented as of this encounter Plan of Treatment Upcoming Encounters Date Type Department Care Team (Late st Contact Info) Description 02/21/2025 12:30 PM PAN DEVULCANIZER HELPER Therapy Visit [facility] [address] [place] [address] [address] [place] [address] Alysa Chinchilla MD [address] [place] [address] Valdez Monica Ni, PT [address] [place], [place] [address] 03/21/2025 12:30 PM PAN DEVULCANIZER HELPER Therapy Visit [facility] [address] [facility] [address] [place] [address] Alysa Chinchilla MD [address] [address] Valdez Monica Ni, PT 909 [place] [address] 05/02/2025 4:30 PM PAN DEVULCANIZER HELPER Office Visit [facility] Internal Medicine [address] 4th [place] [phone] Shalmo Renteria MD [address] [place] [address] 09/09/2025 2:45 PM CDT Office Visit [facility] [address] [phone] Malini Anderson PA-C [address] [address] documented as of this encounter Visit Diagnoses Not on filedocumented in this encounter Additional Health Concerns Assessment Noted Time PHQ-9 Depression Total Score: 5 04/07/19 25 2:20 PM PAN DEVULCANIZER HELPER documented as of this encounter Care Teams Box Sealing Machine Catcher Relationship Specialty Start Date End Date Shalom Renteria MD [address] [place] [address] PCP - General Internal Medicine 03/03/24 Devika Fleming MD [address] [place] [address] Neurology 10/30/21 Shalom Renteria MD 909 [place] [address] Assigned PCP 12/29/23 Melissa Melvin PA-C [address] [place] [address] Physician Flexographic Press Helper Gastroenterology 03/03/24 Malini Anderson PA-C [address] [place] [address] Physician Flexographic Press Helper 03/03/24 Melissa Melvin PA-C [address] [place] [address] Assigned Gastroenterology Provider 04/29/24 Malini Anderson PA-C [address] [place] [address] Assigned Dermatology Provider 09/27/24 documented as of this encounter
--- OUTSIDE RECORDS SUMMARY | 2025-02-13 23:41 | XMS_ITS | Encounter Summary ---
Author Organization [facility] Address [address] [place] [address] Care Team Providers Care Chemical Dependency Professional Name Role Phone Susie Vogt MD Primary Care Provider Devika Fleming MD Unavailable [phone] Devika Fleming MD Unavailable [phone] Alysa Chinchilla MD Primary Care Provider [phone] Shalom Renteria MD Unavailable Melissa Melvin-C Unavailable Shalom Renteria MD Primary Care Provider [phone] Malini Anderson-C Unavailable [phone] Melissa Melvin-C Unavailable Malini Anderson-C Unavailable [phone] Encounter Details Date Type Department Care Team (Late st Contact Info) Description 04/10/2022 [facility] [address] 3rd [place] [address] Devika Fleming MD [address] [place] [address] Social History Tobacco Use Types Packs/Day Years Used Date Smoking Tobacco: Never Smokeless Tobacco: Never Alcohol Use Standard Drinks/Week Comments Not Currently 0 (1 standard drink = 0.6 oz pur e alcohol) PHQ-2 Answer Date Recorded PHQ-2 Score 2 02/18/2022 Comments Unknown Sex and Gender Information Value Date Recorded Sex Assigned at Female 02/16/2019 10:59 AM CUSTOMER SERVICE CORRESPONDENCE CLERK Legal Sex Female 11:51 AM CDT Gender Identity Female 02/16/2019 10:59 AM CUSTOMER SERVICE CORRESPONDENCE CLERK Sexual Orientation Bisexual 08/08/2023 1: 47 PM CDT documented as of this encounter Plan of Treatment Upcoming Encounters Date Type Department Care Team (Late st Contact Info) Description 02/21/2025 12:30 PM CUSTOMER SERVICE CORRESPONDENCE CLERK Therapy Visit [address] [address] Alysa Chinchilla MD [facility] [address] [address] Monica Kellogg, PT [address] [place] [address] 03/21/2025 12:30 PM CUSTOMER SERVICE CORRESPONDENCE CLERK Therapy Visit [address] [address] Alysa Chinchilla MD [facility] [address] [address] Monica Kellogg, PT [address] [place] [address] 05/02/2025 4:30 PM CUSTOMER SERVICE CORRESPONDENCE CLERK Office Visit [facility] Internal Medicine [address] [place] [phone] Shalom Renteria MD [address] [place] [address] 09/09/2025 2:45 PM CDT Office Visit [address] [phone] Malini Anderson PA-C [address] [address] documented as of this encounter Visit Diagnoses Not on filedocumented in this encounter Care Teams Chemical Dependency Professional Relationship Specialty Start Date End Date Susie Vogt MD PCP - General warning analyst 12/29/18 08/07/23 Alysa Chinchilla MD [facility] [address] [place] [address] PCP - General 08/08/23 03/02/24 Shalom Renteria MD [address] [place] [address] PCP - General Internal Medicine 03/03/24 Devika Fleming MD [address] [place] [address] Neurology 10/30/21 Devika Fleming MD [address] [place] [address] Assigned Neuroscience Provider 02/23/22 08/27/23 Shalom Renteria MD [address] [place] [address] Assigned PCP 12/29/23 Melissa Melvin PA-C [address] [place] [address] Physician Canteen Operator Gastroenterology 03/03/24 Malini Anderson PA-C [address] [place] [address] Physician Canteen Operator 03/03/24 Melissa Melvin PA-C [address] [place] [address] Assigned Gastroenterology Provider 04/29/24 Malini Anderson PA-C [address] [place] [address] Assigned Dermatology Provider 09/27/24 documented as of this encounter
--- OUTSIDE RECORDS SUMMARY | 2025-02-13 23:41 | XMS_ITS | Clinical Summary ---
Author Organization [place] Address [address] [place] [address] Care Team Providers Care Tobacco Blender Name Role Phone AjpuneetDevika MD Unavailable [phone] Shalom Renteria MD Unavailable Melissa Melvin PA-C Unavailable Shalom Renteria MD Primary Care Provider [phone] Malini Anderson PA-C Unavailable [phone] Melissa Melvin PA-C Unavailable Malini Anderson PA-C Unavailable [phone] Allergies Active Allergy Reactions Criticality Noted Date [...] Description 01/17/2025 11:00 AM CDT Therapy Visit [address] [address] Alysa Chinchilla MD Gerardi, Meghan Marie, PT Chase-Danlos syndrome (Primary Dx) 01/17/2025 Travel 01/14/2025 Travel 12/20/2024 2:00 PM CDT Therapy Visit [address] [address] Alysa Chinchilla MD Gerardi, Meghan Marie, PT Chase-Danlos syndrome (Primary Dx) 12/20/2024 Travel 12/03/2024 MyC Medical Advice [facility] Internal Medicine [address] [address] Shalom Renteria MD 12/03/2024 Results Follow-Up [facility] G[facility]ology [facility] [address] [address] Rachel Lord, ISIAH from Last [...] Sex Assigned at Female 02/16/2019 10:59 AM AUTHORIZATION MANAGER Legal Sex Female 11:51 AM CDT Gender Identity Female 02/16/2019 10:59 AM AUTHORIZATION MANAGER Sexual Orientation Bisexual 08/08/2023 1: 47 PM CDT Last Filed Vital Signs Vital Sign Reading Time Taken Comments Blood Pressure 153/103 04/06/2024 2:40 PM AUTHORIZATION MANAGER Pulse 100 04/06/2024 2:40 PM AUTHORIZATION MANAGER Temperature 36.6 C (97.9 F) 02/28/2024 10:50 AM AUTHORIZATION MANAGER Respiratory Rate 18 02/28/2024 10:50 AM AUTHORIZATION MANAGER Oxygen Saturation 99% 04/06/2024 2:04 PM AUTHORIZATION MANAGER Inhaled Oxygen Concentration - - Weight 109.8 kg (242 lb) 04/06/2024 2:04 PM AUTHORIZATION MANAGER Height 170.2 cm (5' 7.01) 02/28/2024 10:50 AM C Body Mass Index 37.89 02/28/2024 10:50 AM AUTHORIZATION MANAGER Plan of Treatment Upcoming Encounters Date Type Department Care Team (Late st Contact Info) Description 02/21/2025 12:30 PM AUTHORIZATION MANAGER Therapy Visit [address] [address] Alysa Chinchilla MD [employer] [facility] [address] [address] Monica Kellogg, PT [address] [place] [address] 03/21/2025 12:30 PM AUTHORIZATION MANAGER Therapy Visit [address] [address] Alysa Chinchilla MD [employer] [facility] [address] [address] Monica Kellogg, PT [address] [place] [address] 05/02/2025 4:30 PM AUTHORIZATION MANAGER Office Visit [facility] Internal Medicine [address] 4th [place] [phone] Shalom Renteria MD [address] [place] [address] 09/09/2025 2:45 PM CDT Office Visit [facility] [address] [phone] Malini Anderson PA-C [address] [address] Health Maintenance Due Date Last Done Comments [...] COMPREHENSIVE METABOLIC PANEL Routine 04/06/2024 2:50 PM AUTHORIZATION MANAGER Abdominal pain, unspecified abdominal location Loose stools LIPID REFLEX TO DIRECT LDL PANEL Routine 02/28/2024 9:16 AM AUTHORIZATION MANAGER Dyslipidemia PAP SMEAR - HIM PATIENT REPORTED Routine 12/06/2022 from Last 3 Months or Most Recently Relevant to Health Maintenance Results * Colonoscopy - HIM Scan (12/01/2024 12:12 PM CDT) Narrative Procedure Note Natali Mahoney MD - 12/01/2024 12:12 PM CDT Images from the original note were not included. [facility] [address] [place] [address], [address], [place] [address] Patient Name: Linda Valente Gender: Female Exam Date: 12/01/2024 Visit Number: [id number] Age: 39 Years Date of : 1985 Attending MD: Natali Mahoney MD Medical Record#: [id number] Procedure: Colonoscopy Indications: Nausea, irregular bowel habits, elevated fecal calprotectin Referring MD: Referral Self Primary MD: Shalom Renteria MD Medications: Admitting Medications: 0.9% Normal Saline at [facility] Ondansetron Hydrochloride (Zofran) given 4mg by IV [...] GI Endoscopy Indications: nausea, irregular bowels Provider: Natail Mahoney MD Referring MD: Referral Self Primary [...] signed by: Kenn Sanchez MD Interpreted at [facility], [address] [place] [phone] Orders Office Procedures: Service Comments Timeframe Assessment [...] AST, Total. Bili, TP) (04/06/2024 2:50 PM AUTHORIZATION MANAGER) Sodium 143 135 - 145 mmol/L 04/06/2024 3:14 PM AUTHORIZATION MANAGER [facility] Potassium 4.0 3.4 - 5.3 mmol/L 04/06/2024 3:14 PM AUTHORIZATION MANAGER [facility] Carbon Dioxide (CO2) 26 22 - 29 mmol/L 04/06/2024 3:14 PM AUTHORIZATION MANAGER [facility] Anion Gap 12 7 - 15 mmol/L 04/06/2024 3:14 PM AUTHORIZATION MANAGER [facility] Urea Nitrogen 10.4 6.0 - 20.0 mg/dL 04/06/2024 3:14 PM AUTHORIZATION MANAGER [facility] Creatinine 0.86 0.51 - 0.95 mg/dL 04/06/2024 3:14 PM AUTHORIZATION MANAGER [facility] GFR Estimate 88 >60 mL/min/1.7 3m2 04/06/2024 3:14 PM AUTHORIZATION MANAGER [facility] Comment:eGFR calculated usin 2020 CKD-EPI equation. Calcium 8.9 8.8 - 10.4 mg/dL 04/06/2024 3:14 PM AUTHORIZATION MANAGER [facility] Comment:Reference intervals for this test were updated on 10/21/2023 to reflect our healthy population more accurately. There may be differences in the flagging of prior results with similar values performed with this method. Those prior results can be interpreted in the context of the updated reference intervals. Chloride 105 98 - 107 mmol/L 04/06/2024 3:14 PM AUTHORIZATION MANAGER [facility] Glucose 115(H) 70 - 99 mg/dL 04/06/2024 3:14 PM AUTHORIZATION MANAGER [facility] Alkaline Phosphatase 99 40 - 150 U/L 04/06/2024 3:14 PM AUTHORIZATION MANAGER [facility] AST 33 0 - 45 U/L 04/06/2024 3:14 PM AUTHORIZATION MANAGER [facility] ALT 45 0 - 50 U/L 04/06/2024 3:14 PM AUTHORIZATION MANAGER [facility] Protein Total 7.3 6.4 - 8.3 g/dL 04/06/2024 3:14 PM AUTHORIZATION MANAGER [facility] Albumin 4.3 3.5 - 5.2 g/dL 04/06/2024 3:14 PM AUTHORIZATION MANAGER [facility] Bilirubin Total 0.4 <=1.2 mg/dL 04/06/2024 3:14 PM AUTHORIZATION MANAGER [facility] Blood STRUCTURE OF LEFT UPPER LIMB / Unknown Venipuncture / Unknown 04/06/2024 2:50 PM AUTHORIZATION MANAGER 04/06/2024 2:53 PM AUTHORIZATION MANAGER us Melissa Melvin PA-C LAB - BLOOD ORDERABLES Final Res ult LABORATORY [facility] - [address], [place] [address] * (ABNORMAL) Lipid panel reflex to direct LDL Non-fasting (02/28/2024 9:16 AM AUTHORIZATION MANAGER) Cholesterol 234(H) <200 mg/dL 02/28/2024 9:52 AM AUTHORIZATION MANAGER [facility] - CORE LAB Triglycerides 272(H) <150 mg/dL 02/28/2024 9:52 AM AUTHORIZATION MANAGER [facility] - [facility] Direct Measure HDL 31(L) >=50 mg/dL 02/28/2024 9:52 AM AUTHORIZATION MANAGER [facility] - [facility] LDL Cholesterol Calculated 149(H) <100 mg/dL 02/28/2024 9:52 AM AUTHORIZATION MANAGER [facility] - [facility] Non HDL Cholesterol 203(H) <130 mg/dL 02/28/2024 9:52 AM AUTHORIZATION MANAGER [facility] - [facility] Patient Fasting > 8hrs? Yes 02/28/2024 9:52 AM AUTHORIZATION MANAGER [facility] - [facility] Blood STRUCTURE OF LEFT UPPER LIMB / Unknown Venipuncture / Unknown 02/28/2024 9:16 AM AUTHORIZATION MANAGER 02/28/2024 9:17 AM AUTHORIZATION MANAGER Narrative [facility] - [facility] - 02/28/2024 9:52 AM AUTHORIZATION MANAGER Cholesterol Desirable: < 200 mg/dL Borderline High: [...] LAB - BLOOD ORDERABLES Final Res ult [facility] - CORE LAB [facility] - [address] 1st [place] [address] * PAP Smear - HIM Patient Reported (12/06/2022) PAP Smear - HIM Patient Reported Unknown EXTERNAL LAB 12/06/2022 Narrative EXTERNAL LAB - 12/06/2022 SEE ENCOUNTER DATED 11/28/23 us Patient Reported LABORATORY Final Result EXTERNAL LAB External Lab from Last 3 Months or Most Recently Relevant to Health Maintenance Insurance [facility] OUT OF STATE BCBS OUT OF STATE Care Teams Tobacco Blender Relationship Specialty Start Date End Date Shalom Renteria MD [address] [place] [address] PCP - General Internal Medicine 03/03/24 Devika Fleming MD [address] [place] [address] [phone] Neurology 10/30/21 Shalom Renteria MD [address] [place] [address] Assigned PCP 12/29/23 Melissa Melvin PA-C [address] [place] [address] Physician Strike On Machine Operator Gastroenterology 03/03/24 Malini Anderson PA-C [address] [place] [address] Physician Strike On Machine Operator 03/03/24 Melissa Melvin PA-C [address] [address] [address] Assigned Gastroenterology Provider 04/29/24 Malini Anderson PA-C [address] [place] [address] Assigned Dermatology Provider 09/27/24
--- OUTSIDE RECORDS SUMMARY | 2025-02-13 23:41 | XMS_ITS | Encounter Summary ---
Author Organization [place] Address [address] [place] [address] Care Team Providers Care Credit Product Analyst Name Role Phone Devika Fleming MD Unavailable [phone] Shalom Renteria MD Unavailable Melissa Melvin PA-C Unavailable Shalom Renteria MD Primary Care Provider [phone] Malini Anderson PA-C Unavailable [phone] Melissa Melvin PA-C Unavailable Malini Anderson PA-C Unavailable [phone] Reason for Referral * Consultation (Routine: Next available opening) - Pending Review Specialty Diagnoses / Procedures Referred By Edi ayala Referred To Contact Gastroenterology Diagnoses Chronic nausea Alternating constipation and diarrhea Shalom Renteria MD [address] [place] [address] Phone: tel: fax: [address] [address] Phone: tel: Referral ID Status Reason Start Date Expiration Date V isits Requested Visits Authorized [id number] Pending Review 05/17/2024 05/17/2025 1 1 Question Answer Reason for Referral: General GI Patient Scheduling Instructions: [facility] will call you to coordinate your care as prescribed by the provider. If you don t hear from a veterans employment representative within 2 business days, please call . Additional Information: Natali Mahoney (preferred), or Abhijit Street, or Raul Sepulveda Comments Please be aware that coverage of these services is subject to the terms and limitations of your health insurance plan. Call member services at your health plan with any benefit or coverage questions. [facility] will call you to coordinate your care as prescribed by the provider. If you don t hear from a veterans employment representative within 2 business days, please call . [place] SAFETY OFFICER Encounter Details Date Type Department Care Team (Latest Contact Info) Description 05/14/2024 MyC Medical Advice [facility] Internal Medicine [address] [address] Shalom Renteria MD [address] [place] [address] Alternating constipation and diarrhea (Primary Dx); [...] Sex Assigned at Female 02/16/2019 10:59 AM GLOBAL SAFETY OFFICER Legal Sex Female 11:51 AM CDT Gender Identity Female 02/16/2019 10:59 AM GLOBAL SAFETY OFFICER Sexual Orientation Bisexual 08/08/2023 1: 47 PM CDT documented as of this encounter Miscellaneous Notes * Telephone Encounter - Shalom Renteria MD - 05/17/2024 2:23 PM CST Referral signed. Thanks, Shalom Renteria MD [place] SAFETY OFFICER documented in this encounter Plan of Treatment Upcoming Encounters Date Type Department Care Team (Late st Contact Info) Description 02/21/2025 12:30 PM GLOBAL SAFETY OFFICER Therapy Visit [address] [place] [address] Alysa Chinchilla MD [employer] [address] [address] Monica Kellogg, PT [address] [place] [address] 03/21/2025 12:30 PM GLOBAL SAFETY OFFICER Therapy Visit [address] [place] [address] Alysa Chinchilla MD [employer] [address] [place] [address] Valdez Monica Ni, PT [address] [place] [address] 05/02/2025 4:30 PM GLOBAL SAFETY OFFICER Office Visit [facility] Internal Medicine [address] 4th [place] [phone] Shalom Renteria MD [address] [place] [address] [phone] 09/09/2025 2:45 PM CDT Office Visit [facility] [address] [phone] Malini Anderson PA-C [address] [place] [address] 782130 Scheduled Referrals Name Type Priority Associated Diagnoses Orde r Schedule Adult GI Furrier Apprentice Referral - Consult Only Referral Routine: Next available opening Chronic nausea Alternating constipation and diarrhea Expected: 05/17/2024 (Approximate), Expires: 05/17/2025 documented as of this encounter Visit Diagnoses Diagnosis Alternating constipation and diarrhea- Primary Other symptoms involving digestive system Chronic nausea Nausea alone documented in this encounter Additional Health Concerns Assessment Noted Time PHQ-9 Depression Total Score: 5 04/07/19 25 2:20 PM GLOBAL SAFETY OFFICER documented as of this encounter Care Teams Credit Product Analyst Relationship Specialty Start Date End Date Shalom Renteria MD [address] [place] [address] PCP - General Internal Medicine 03/03/24 Devika Fleming MD [address] [place] [address] Neurology 10/30/21 Shalom Renteria MD 9 [place] [address] Assigned PCP 12/29/23 Melissa Melvin PA-C [address] [place] [address] Physician Driver Material Handler Gastroenterology 03/03/24 Malini Anderson PA-C [address] [place] [address] Physician Driver Material Handler 03/03/24 Melissa Melvin PA-C [address] [place] [address] Assigned Gastroenterology Provider 04/29/24 Malini Anderson PA-C [facility] [address] [place] [address] Assigned Dermatology Provider 09/27/24 documented as of this encounter
--- OUTSIDE RECORDS SUMMARY | 2025-02-13 23:41 | XMS_ITS | Encounter Summary ---
Author Organization [place] Address [address] [place] [address] Care Team Providers Care Machine Plug Shaper Name Role Phone AjpuneetDevika MD Unavailable [phone] Shalom Renteria MD Unavailable Melissa Melvin PA-C Unavailable Shalom Renteria MD Primary Care Provider [phone] Malini Anderson PA-C Unavailable [phone] Melissa Melvin-Margarita Unavailable Malini Anderson-Margarita Unavailable [phone] Encounter Details Date Type Department Care Team (Late st Contact Info) Description 04/15/2024 [place] Medical Advice [facility] Gastroenterology Clinic [address] [place] [address] [place] Hayden Social History Tobacco [...] in an abandoned building, in an overnight custodial, or couch-surfing.) Yes 11/23/2023 Are you worried [...] Sex Assigned at Female 02/16/2019 10:59 AM FARM SERVICE ADVISER Legal Sex Female 11:51 AM CDT Gender Identity Female 02/16/2019 10:59 AM FARM SERVICE ADVISER Sexual Orientation Bisexual 08/08/2023 1: 47 PM CDT documented as of this encounter Plan of Treatment Upcoming Encounters Date Type Department Care Team (Late st Contact Info) Description 02/21/2025 12:30 PM FARM SERVICE ADVISER Therapy Visit [facility] [address] [place] [address] [address] [place] [address] Alysa Chinchilla MD [employer] [address] [address] Monica Kellogg, PT [address] [place], [place] [phone] 03/21/2025 12:30 PM FARM SERVICE ADVISER Therapy Visit [facility] [address] [facility] [address] [place] [address] Alysa Chinchilla MD [employer] [facility] [address] [place] [address] Monica Kellogg, PT [address] [place] [address] 05/02/2025 4:30 PM FARM SERVICE ADVISER Office Visit [facility] Internal Medicine [address] 4th [place] [phone] Shalom Renteria MD [address] [place] [address] [phone] 09/09/2025 2:45 PM CDT Office Visit [facility] [address] [phone] Malini Anderson PA-C [address] [place] [address] [phone] documented as of this encounter Visit Diagnoses Not on filedocumented in this encounter Additional Health Concerns Assessment Noted Time PHQ-9 Depression Total Score: 5 04/07/19 25 2:20 PM FARM SERVICE ADVISER documented as of this encounter Care Teams Machine Plug Shaper Relationship Specialty Start Date End Date Shalom Renteria MD [address] [place] [address] PCP - General Internal Medicine 03/03/24 Devika Fleming MD [address] [place] [address] Neurology 10/30/21 Shalom Renteria MD [address] [place] [address] Assigned PCP 12/29/23 Melissa Melvin PA-C [address] [place] [address] Physician Physician Practice Consultant Gastroenterology 03/03/24 Malini Anderson PA-C [address] [place] [address] Physician Physician Practice Consultant 03/03/24 Melissa Melvin PA-C [address] [place] [address] Assigned Gastroenterology Provider 04/29/24 Malini Anderson PA-C [address] [place] [address] [phone] Assigned Dermatology Provider 09/27/24 documented as of this encounter
--- OUTSIDE RECORDS SUMMARY | 2025-02-13 23:41 | XMS_ITS | Encounter Summary ---
Author Organization [place] Address [address] [place] [address] Care Team Providers Care Cleaning Supervisor Name Role Phone Susie Vogt MD Primary Care Provider Devika Fleming MD Unavailable [phone] Devika Fleming MD Unavailable [phone] Alysa Chinchilla MD Primary Care Provider [phone] Shalom Renteria MD Unavailable Melissa Melvin PA-C Unavailable Shalom Renteira MD Primary Care Provider [phone] Malini Anderson PA-C Unavailable [phone] Melissa Melvin PA-C Unavailable Malini Anderson PA-C Unavailable [phone] Encounter Details Date Type Department Care Team (Late st Contact Info) Description 10/16/2020 [facility] Medical Advice [facility] Neurology Clinic [address] [place] [address] Susi Gloria, ISIAH Social History Tobacco Use Types Packs/Day Years Used Date Smoking Tobacco: Never Smokeless Tobacco: Never Alcohol Use Standard Drinks/Week Comments Not Currently 0 (1 standard drink = 0.6 oz pur e alcohol) PHQ-2 Answer Date Recorded PHQ-2 Score 2 02/22/2019 Comments Unknown Sex and Gender Information Value Date Recorded Sex Assigned at Female 02/16/2019 10:59 AM MANAGER TECHNICAL Legal Sex Female 11:51 AM CDT Gender Identity Female 02/16/2019 10:59 AM MANAGER TECHNICAL Sexual Orientation Bisexual 08/08/2023 1: 47 PM CDT documented as of this encounter Plan of Treatment Upcoming Encounters Date Type Department Care Team (Late st Contact Info) Description 02/21/2025 12:30 PM MANAGER TECHNICAL Therapy Visit [address] [address] Alysa Chinchilla MD [employer] [facility] [address] [place] [address] Monica Kellogg, PT [address] [place] [address] 03/21/2025 12:30 PM MANAGER TECHNICAL Therapy Visit [address] [address] Alysa Chinchilla MD [employer] [facility] [address] [address] Monica Kellogg, PT [address] [place] [address] 05/02/2025 4:30 PM MANAGER TECHNICAL Office Visit [facility] Internal Medicine [address] 4th [place] [phone] Shalom Renteria MD [address] [place] [address] 09/09/2025 2:45 PM CDT Office Visit [address] [phone] Malini Anderson PA-C [address] [place] [address] documented as of this encounter Visit Diagnoses Not on filedocumented in this encounter Care Teams Cleaning Supervisor Relationship Specialty Start Date End Date Susie Vogt MD PCP - General undercollar maker 12/29/18 08/07/23 Alysa Chinchilla MD [employer] [facility] [address] [place] [address] PCP - General 08/08/23 03/02/24 Shalom Renteria MD [address] [place] [address] PCP - General Internal Medicine 03/03/24 Devika Fleming MD [address] [place] [address] Neurology 10/30/21 Devika Fleming MD [address] [place] [address] Assigned Neuroscience Provider 02/23/22 08/27/23 Shalom Renteria MD [address] [place] [address] Assigned PCP 12/29/23 Melissa Melvin PA-C [address] [place] [address] Physician Swing Manager Gastroenterology 03/03/24 Malini Anderson PA-C [address], [place] [address] Physician Swing Manager 03/03/24 Melissa Melvin PA-C [address] [place] [address] Assigned Gastroenterology Provider 04/29/24 Malini Anderson PA-C [address] [place] [address] Assigned Dermatology Provider 09/27/24 documented as of this encounter
--- OUTSIDE RECORDS SUMMARY | 2025-02-13 23:41 | XMS_ITS | Encounter Summary ---
Author Organization [place] Address [address] [place] [address] Care Team Providers Care Oracle Obiee Developer Name Role Phone Susie Vogt MD Primary Care Provider Devika Fleming MD Unavailable [phone] Devika Fleming MD Unavailable [phone] Alysa Chinchilla MD Primary Care Provider Shalom Renteria MD Unavailable Melissa Melvin-C Unavailable Shalom Renteria MD Primary Care Provider [phone] Malini Anderson-C Unavailable [phone] Melissa Melvin-Margarita Unavailable Malini Anderson-C Unavailable [phone] Reason for Visit * Reason Onset Date Comments Refill Request 10/12/2020 Encounter Details Date Type Department Care Team (Late st Contact Info) Description 10/12/2020 [facility] [address] [address] Lali Orr MD [address] [place] [address] 2121 [place] [address] Refill Request Social History Tobacco Use Types Packs/Day Years Used Date Smoking Tobacco: Never Smokeless Tobacco: Never Alcohol Use Standard Drinks/Week Comments Not Currently 0 (1 standard drink = 0.6 oz pur e alcohol) PHQ-2 Answer Date Recorded PHQ-2 Score 2 02/22/2019 Comments Unknown Sex and Gender Information Value Date Recorded Sex Assigned at Female 02/16/2019 10:59 AM SORT LINE WORKER Legal Sex Female 11:51 AM CDT Gender Identity Female 02/16/2019 10:59 AM SORT LINE WORKER Sexual Orientation Bisexual 08/08/2023 1: 47 PM CDT documented as of this encounter Plan of Treatment Upcoming Encounters Date Type Department Care Team (Late st Contact Info) Description 02/21/2025 12:30 PM SORT LINE WORKER Therapy Visit [address] [address] Alysa Chinchilla MD [employer] [facility] [address] [address] Monica Kellogg, PT [address] [place] [address] 03/21/2025 12:30 PM SORT LINE WORKER Therapy Visit [address] [address] Alysa Chinchilla MD [employer] [facility] [address] [address] Monica Kellogg, PT [address] [place] [address] 05/02/2025 4:30 PM SORT LINE WORKER Office Visit [facility] Internal Medicine [address] [phone] Shalom Renteria MD [address] [place] [address] 09/09/2025 2:45 PM CDT Office Visit [facility] [place] [address] [phone] Malini Anderson PA-C [address] [address] documented as of this encounter Visit Diagnoses Diagnosis Chronic tension-type headache, intractable Chronic tension type headache Migraine with aura and without status migrainosus, not intractable Migraine with aura, without mention of intractable migraine without mention of status migrainosus documented in this encounter Care Teams Oracle Obiee Developer Relationship Specialty Start Date End Date Susie Vogt MD PCP - General community relations specialist 12/29/18 08/07/23 Alysa Chinchilla MD [facility] [id number] [place] [address] PCP - General 08/08/23 03/02/24 Shalom Renteria MD [address] [place] [address] PCP - General Internal Medicine 03/03/24 Devika Fleming MD [address] [place] [address] Neurology 10/30/21 Devika Fleming MD [address] [place] [address] Assigned Neuroscience Provider 02/23/22 08/27/23 Shalom Renteria MD [address] [place] [address] Assigned PCP 12/29/23 Melissa Melvin PA-C [address] [place] [address] Physician Tomato Paste Maker Gastroenterology 03/03/24 Malini Anderson PA-C [address] [place] [address] Physician Tomato Paste Maker 03/03/24 Melissa Melvin PA-C [address] [place] [address] Assigned Gastroenterology Provider 04/29/24 Malini Anderson PA-C [address] [place] [address] 011520 Assigned Dermatology Provider 09/27/24 documented as of this encounter
--- OUTSIDE RECORDS SUMMARY | 2025-02-13 23:41 | XMS_ITS | Encounter Summary ---
Author Organization [facility] Address [address] [place] [address] Care Team Providers Care Metal Grader Name Role Phone Susie Vogt MD Primary Care Provider Devika Fleming MD Unavailable Devika Fleming MD Unavailable [phone] Devika Fleming MD Unavailable Alysa Chinchilla MD Primary Care Provider Shalom Renteria MD Unavailable Melissa Melvin-Margarita Unavailable Shalom Renteria MD Primary Care Provider [phone] Malini Anderson-C Unavailable [phone] Melissa Melvin-Margarita Unavailable Malini Anderson-Margarita Unavailable [phone] Reason for Visit * Reason Onset Date Comments Refill Request 04/07/2020 Encounter Details Date Type Department Care Team (Late st Contact Info) Description 04/07/2020 [facility] [address] [address] Lali Orr MD [address] [place] [address] Refill Request Social History Tobacco Use Types Packs/Day Years Used Date Smoking Tobacco: Never Smokeless Tobacco: Never Alcohol Use Standard Drinks/Week Comments Not Currently 0 (1 standard drink = 0.6 oz pur e alcohol) PHQ-2 Answer Date Recorded PHQ-2 Score 2 02/22/2019 Comments Unknown Sex and Gender Information Value Date Recorded Sex Assigned at Female 02/16/2019 10:59 AM BUILDING PRESSURE WASHER Legal Sex Female 11:51 AM CDT Gender Identity Female 02/16/2019 10:59 AM BUILDING PRESSURE WASHER Sexual Orientation Bisexual 08/08/2023 1: 47 PM CDT documented as of this encounter Miscellaneous Notes * Telephone Encounter - Jo Parson CMA - 04/10/2020 8:53 AM BUILDING PRESSURE WASHER Rx Authorization: ??? Requested Medication/ Dose: Nortriptyline 10MG caps ??? Date last refill ordered: 02/21/20 ??? Quantity ordered: 90 caps ??? # refills: ??? Date of last clinic visit with ordering provider: 02/22/19 ??? Date of next clinic visit with ordering provider: F/U 1 year ??? All pertinent protocol data (lab date/result): ??? Include pertinent information from patients message: DING PRESSURE WASHER documented in this encounter Plan of Treatment Upcoming Encounters Date Type Department Care Team (Late st Contact Info) Description 02/21/2025 12:30 PM BUILDING PRESSURE WASHER Therapy Visit [address] [address] Alysa Chinchilla MD [employer] [facility] [address] [address] Monica Kellogg, PT 909 [place] [address] 03/21/2025 12:30 PM BUILDING PRESSURE WASHER Therapy Visit [address] [address] Alysa Chinchilla MD [employer] [facility] [employer] 47[address] [place] [address] [place] Monica Ni, PT 909 [place] [address] 05/02/2025 4:30 PM BUILDING PRESSURE WASHER Office Visit [facility] Internal Medicine [address] 4th [place] [phone] Shalom Renteria MD [address] [place] [address] 09/09/2025 2:45 PM CDT Office Visit [address] [phone] Malini Anderson PA-C [address] [place] [address] documented as of this encounter Visit Diagnoses Diagnosis Chronic tension-type headache, intractable Chronic tension type headache Migraine with aura and without status migrainosus, not intractable Migraine with aura, without mention of intractable migraine without mention of status migrainosus documented in this encounter Care Teams Metal Grader Relationship Specialty Start Date End Date Susie Vgot MD PCP - General bridge maintainer 12/29/18 08/07/23 Alysa Chinchilla MD [employer] [facility] [employer] [address] [place] [address] PCP - General 08/08/23 03/02/24 Shalom Renteria MD [address] [place] [address] PCP - General Internal Medicine 03/03/24 Devika Fleming MD [address] [place] [address] Assigned Neuroscience Provider 01/28/20 08/26/20 Devika Fleming MD [address] [place] [address] MD Neurology 10/30/21 Devika Fleming MD [address] [place] [address] Assigned Neuroscience Provider 02/23/22 08/27/23 Shalom Renteria MD [address] [place] [address] Assigned PCP 12/29/23 Melissa Melvin PA-C [address] [address] [place] [address] Physician Mild Disabilities Teacher Gastroenterology 03/03/24 Malini Anedrson PA-C [address] [place] [address] Physician Mild Disabilities Teacher 03/03/24 Melissa Melvin PA-C [address] [place] [address] Assigned Gastroenterology Provider 04/29/24 Malini Anderson PA-C [address] [place] [address] Assigned Dermatology Provider 09/27/24 documented as of this encounter
--- OUTSIDE RECORDS SUMMARY | 2025-02-13 23:41 | XMS_ITS | Encounter Summary ---
Author Organization [place] Address [address] [place] [address] Care Team Providers Care Payroll Human Resources Assistant Name Role Phone Susie Vogt MD Primary Care Provider Devika Fleming MD Unavailable [phone] Devika Fleming MD Unavailable [phone] Alysa Chinchilla MD Primary Care Provider Shalom Renteria MD Unavailable Melissa Melvin-C Unavailable Shalom Renteria MD Primary Care Provider [phone] Malini Anderson-C Unavailable [phone] Melissa Melvin-C Unavailable Malini Anderson-C Unavailable [phone] Encounter Details Date Type Department Care Team (Late st Contact Info) Description 08/14/2022 [facility] [address] 3rd [place] [address] Devika Fleming MD [address] [place] [address] Social History Tobacco Use Types Packs/Day Years Used Date Smoking Tobacco: Never Smokeless Tobacco: Never Alcohol Use Standard Drinks/Week Comments Not Currently 0 (1 standard drink = 0.6 oz pur e alcohol) PHQ-2 Answer Date Recorded PHQ-2 Score 2 02/18/2022 Comments Unknown Sex and Gender Information Value Date Recorded Sex Assigned at Female 02/16/2019 10:59 AM TELEVISION AGENT Legal Sex Female 11:51 AM CDT Gender Identity Female 02/16/2019 10:59 AM TELEVISION AGENT Sexual Orientation Bisexual 08/08/2023 1: 47 PM CDT documented as of this encounter Plan of Treatment Upcoming Encounters Date Type Department Care Team (Late st Contact Info) Description 02/21/2025 12:30 PM TELEVISION AGENT Therapy Visit [address] [address] Alysa Chinchilla MD [facility] [facility] [address] [address] Monica Kellogg, PT [address] [place] [address] 03/21/2025 12:30 PM TELEVISION AGENT Therapy Visit [address] [address] Alysa Chinchilla MD [facility] [address] [address] Monica Kellogg, PT [address] [place] [address] 05/02/2025 4:30 PM TELEVISION AGENT Office Visit [facility] Internal Medicine [address] [place] [phone] Shalom Renteria MD [address] [place] [address] 09/09/2025 2:45 PM CDT Office Visit [address] [phone] Malini Anderson PA-C [address] [address] documented as of this encounter Visit Diagnoses Not on filedocumented in this encounter Care Teams Payroll Human Resources Assistant Relationship Specialty Start Date End Date Susie Vogt MD PCP - General desizing machine operator 12/29/18 08/07/23 Alysa Chinchilla MD [facility] [address] [place] [address] PCP - General 08/08/23 03/02/24 Shalom Renteria MD [address] [place] [address] PCP - General Internal Medicine 03/03/24 Devika Fleming MD [address] [place] [address] Neurology 10/30/21 Devika Fleming MD [address] [place] [address] Assigned Neuroscience Provider 02/23/22 08/27/23 Shalom Renteria MD [address] [place] [address] Assigned PCP 12/29/23 Melissa Melvin PA-C [address] [place] [address] Physician Sales Trainee Gastroenterology 03/03/24 Malini Anderson PA-C [address], [place] [address] Physician Sales Trainee 03/03/24 Melissa Melvin PA-C [address] [place] [address] Assigned Gastroenterology Provider 04/29/24 Malini Anderson PA-C [address], [place] [address] Assigned Dermatology Provider 09/27/24 documented as of this encounter
--- OUTSIDE RECORDS SUMMARY | 2025-02-13 23:41 | XMS_ITS | Encounter Summary ---
Author Organization [facility] Address [address] [place] [address] Care Team Providers Care Camp Nurse Name Role Phone Susie Vogt MD Primary Care Provider Devika Fleming MD Unavailable [phone] Devika Fleming MD Unavailable [phone] Alysa Chinchilla MD Primary Care Provider [phone] Shalom Renteria MD Unavailable Melissa Melvin-C Unavailable Shalom Renteria MD Primary Care Provider [phone] Malini Anderson-C Unavailable [phone] Melissa Melvin-Margarita Unavailable Malini Anderson-C Unavailable [phone] Reason for Visit * Reason Onset Date Comments Refill Request 10/07/2020 Encounter Details Date Type Department Care Team (Late st Contact Info) Description 10/07/2020 [facility] [address] [address] Lali Orr MD [address] [place] [address] 2121 [place] [address] Refill Request Social History Tobacco Use Types Packs/Day Years Used Date Smoking Tobacco: Never Smokeless Tobacco: Never Alcohol Use Standard Drinks/Week Comments Not Currently 0 (1 standard drink = 0.6 oz pur e alcohol) PHQ-2 Answer Date Recorded PHQ-2 Score 2 02/22/2019 Comments Unknown Sex and Gender Information Value Date Recorded Sex Assigned at Female 02/16/2019 10:59 AM FINAL INSPECTOR TRUCK TRAILER Legal Sex Female 11:51 AM CDT Gender Identity Female 02/16/2019 10:59 AM FINAL INSPECTOR TRUCK TRAILER Sexual Orientation Bisexual 08/08/2023 1: 47 PM CDT documented as of this encounter Plan of Treatment Upcoming Encounters Date Type Department Care Team (Late st Contact Info) Description 02/21/2025 12:30 PM FINAL INSPECTOR TRUCK TRAILER Therapy Visit [address] [address] Alysa Chinchilla MD [email or web address] [facility] [address] [address] Monica Kellogg, PT [address] [place] [address] 03/21/2025 12:30 PM FINAL INSPECTOR TRUCK TRAILER Therapy Visit [address] [address] Alysa Chinchilla MD [email or web address] [facility] [address] [address] Monica Kellogg, PT [address] [place] [address] 05/02/2025 4:30 PM FINAL INSPECTOR TRUCK TRAILER Office Visit [facility] Internal Medicine [address] [phone] Shalom Renteria MD [address] [place] [address] 09/09/2025 2:45 PM CDT Office Visit [facility] [place] [address] [phone] Malini Anderson PA-C [address] [address] documented as of this encounter Visit Diagnoses Diagnosis Chronic tension-type headache, intractable Chronic tension type headache Migraine with aura and without status migrainosus, not intractable Migraine with aura, without mention of intractable migraine without mention of status migrainosus documented in this encounter Care Teams Camp Nurse Relationship Specialty Start Date End Date Susie Vogt MD PCP - General litigation support analyst 12/29/18 08/07/23 Alysa Chinchilla MD [facility] [id number] [place] [address] PCP - General 08/08/23 03/02/24 Shalom Renteria MD [address] [place] [address] PCP - General Internal Medicine 03/03/24 Devika Fleming MD [address] [place] [address] Neurology 10/30/21 Devika Fleming MD [address] [place] [address] Assigned Neuroscience Provider 02/23/22 08/27/23 Shalom Renteria MD [address] [place] [address] Assigned PCP 12/29/23 Melissa Melvin PA-C [address] [place] [address] Physician Effervescent Salts Compounder Gastroenterology 03/03/24 Malini Anderson PA-C [address] [place] [address] Physician Effervescent Salts Compounder 03/03/24 Melissa Melvin PA-C [address] [place] [address] Assigned Gastroenterology Provider 04/29/24 Malini Anderson PA-C [address] [place] [address] 951090 Assigned Dermatology Provider 09/27/24 documented as of this encounter
--- OUTSIDE RECORDS SUMMARY | 2025-02-13 23:41 | XMS_ITS | Encounter Summary ---
Author Organization [place] Address [address] [place] [address] Care Team Providers Care Chaplain Name Role Phone Susie Vogt MD Primary Care Provider Devika Fleming MD Unavailable [phone] Devika Fleming MD Unavailable [phone] Alysa Chinchilla MD Primary Care Provider [phone] Shalom Renteria MD Unavailable Melissa Melvin PA-C Unavailable Shalom Renteria MD Primary Care Provider [phone] Malini Anderson PA-C Unavailable [phone] Melissa Melvin PA-C Unavailable Malini Anderson PA-C Unavailable [phone] Encounter Details Date Type Department Care Team (Late st Contact Info) Description 10/07/2021 [facility] Initial Department 2450 [place] [address] Lali Alonso Social History Tobacco Use Types Packs/Day Years Used Date Smoking Tobacco: Never Smokeless Tobacco: Never Alcohol Use Standard Drinks/Week Comments Not Currently 0 (1 standard drink = 0.6 oz pur e alcohol) PHQ-2 Answer Date Recorded PHQ-2 Score 2 02/22/2019 Comments Unknown Sex and Gender Information Value Date Recorded Sex Assigned at Female 02/16/2019 10:59 AM WELDER GAS AUTOMATIC Legal Sex Female 11:51 AM CDT Gender Identity Female 02/16/2019 10:59 AM WELDER GAS AUTOMATIC Sexual Orientation Bisexual 08/08/2023 1: 47 PM CDT documented as of this encounter Plan of Treatment Upcoming Encounters Date Type Department Care Team (Late st Contact Info) Description 02/21/2025 12:30 PM WELDER GAS AUTOMATIC Therapy Visit [address] [address] Alysa Chinchilla MD [facility] [address] [address] Monica Kellogg, PT [address] [place] [address] 03/21/2025 12:30 PM WELDER GAS AUTOMATIC Therapy Visit [address] [address] Alysa Chinchilla MD [employer] [facility] [address] [address] Monica Kellogg, PT [address] [place] [address] 05/02/2025 4:30 PM WELDER GAS AUTOMATIC Office Visit [facility] Internal Medicine [address] [place] [phone] Shalom Renteria MD [address] [place] [address] 09/09/2025 2:45 PM CDT Office Visit [address] [phone] Malini Anderson PA-C [address] [place] [address] documented as of this encounter Visit Diagnoses Not on filedocumented in this encounter Care Teams Chaplain Relationship Specialty Start Date End Date Susie Vogt MD PCP - General pearl digger 12/29/18 08/07/23 Alysa Chinchilla MD [facility] [id number] [place] [address] PCP - General 08/08/23 03/02/24 Shalom Renteria MD [address] [place] [address] PCP - General Internal Medicine 03/03/24 Devika Fleming MD [address] [place] [address] Neurology 10/30/21 Devika Fleming MD [address] [place] [address] Assigned Neuroscience Provider 02/23/22 08/27/23 Shalom Renteria MD [address] [place] [address] Assigned PCP 12/29/23 Melissa Melvin PA-C [address] [place] [address] Physician Polymer Scientist Gastroenterology 03/03/24 Malini Anderson PA-C [address] [place] [address] 739070 Physician Polymer Scientist 03/03/24 Melissa Melvin PA-C [address] [place] [address] Assigned Gastroenterology Provider 04/29/24 Malini Anderson PA-C [address] [place] [address] Assigned Dermatology Provider 09/27/24 documented as of this encounter
--- OUTSIDE RECORDS SUMMARY | 2025-02-13 23:41 | XMS_ITS | Encounter Summary ---
Author Organization [place] Address [address] [place] [address] Care Team Providers Care Chip Applying Machine Tender Name Role Phone Susie Vogt MD Primary Care Provider Devika Fleming MD Unavailable [phone] Devika Fleming MD Unavailable [phone] Alysa Chinchilla MD Primary Care Provider Shalom Renteria MD Unavailable Melissa Melvin-C Unavailable Shalom Renteria MD Primary Care Provider [phone] Malini Anderson-C Unavailable [phone] Melissa Melvin-C Unavailable Malini Anderson-C Unavailable [phone] Encounter Details Date Type Department Care Team (Late st Contact Info) Description 04/24/2022 [facility] Neu[facility] Clinic [address] [place] [address] Devika Fleming MD [address] [place] [address] Social History Tobacco Use Types Packs/Day Years Used Date Smoking Tobacco: Never Smokeless Tobacco: Never Alcohol Use Standard Drinks/Week Comments Not Currently 0 (1 standard drink = 0.6 oz pur e alcohol) PHQ-2 Answer Date Recorded PHQ-2 Score 2 02/18/2022 Comments Unknown Sex and Gender Information Value Date Recorded Sex Assigned at Female 02/16/2019 10:59 AM CUTTER HAND Legal Sex Female 11:51 AM CDT Gender Identity Female 02/16/2019 10:59 AM CUTTER HAND Sexual Orientation Bisexual 08/08/2023 1: 47 PM CDT documented as of this encounter Plan of Treatment Upcoming Encounters Date Type Department Care Team (Late st Contact Info) Description 02/21/2025 12:30 PM CUTTER HAND Therapy Visit [address] [address] Alysa Chinchilla MD [facility] [address] [address] Monica Kellogg, PT [address] [place] [address] 03/21/2025 12:30 PM CUTTER HAND Therapy Visit [address] [address] Alysa Chinchilla MD [facility] [address] [address] Monica Kellogg, PT [address] [place] [address] 05/02/2025 4:30 PM CUTTER HAND Office Visit [facility] Internal Medicine [address] [place] [phone] Shalom Renteria MD [address] [place] [address] 09/09/2025 2:45 PM CDT Office Visit [address] [phone] Malini Anderson PA-C [address] [address] documented as of this encounter Visit Diagnoses Not on filedocumented in this encounter Care Teams Chip Applying Machine Tender Relationship Specialty Start Date End Date Susie Vogt MD PCP - General 4 h youth development specialist 12/29/18 08/07/[address] [facility] [address] [place] [address] PCP - General 08/08/23 03/02/24 Shalom Renteria MD [address] [place] [address] PCP - General Internal Medicine 03/03/24 Devika Fleming MD [address] [place] [address] Neurology 10/30/21 Devika Fleming MD [address] [place] [address] Assigned Neuroscience Provider 02/23/22 08/27/23 Shalom Renteria MD [address] [place] [address] Assigned PCP 12/29/23 Melissa Melvin PA-C [address] [place] [address] Physician Research Technologist Gastroenterology 03/03/24 Malini Anderson PA-C [address], [place] [address] Physician Research Technologist 03/03/24 Melissa Melvin PA-C [address] [place] [address] Assigned Gastroenterology Provider 04/29/24 Malini Anderson PA-C [address], [place] [address] Assigned Dermatology Provider 09/27/24 documented as of this encounter
[2025-02-13 23:45] VITALS: BP 148/102; PULSE 126; RESP 16; TEMP 36.5; O2SAT 100; BMI 30.5
[2025-02-13 23:50] VITALS: BP 148/102; PULSE 117; O2SAT 100
[2025-02-13 23:51] VITALS: PULSE 113; O2SAT 100
[2025-02-14] VITALS (7 sets, daily range): BP systolic 135; BP diastolic 96; PULSE 88–96; O2SAT 92–98
--- NOTE | 2025-02-14 00:13 | ED_ITS ---
HPI - General Adult General Chief complaint: Arrhythmia/Palpitations Stated complaint: pot episode Time Seen by Provider: 02/13/25 23:40 Source: patient and family Mode of arrival: ambulatory Limitations: no limitations History of Present Illness HPI narrative: 39-year-old female with a notable history of POTS presents to the ED with episode of nausea, dizziness facial numbness, rapid heart rate consistent with sarbjit hsu prior similar episodes, last being 3 weeks ago. Extensive ED workup and no reviewed. Patient reports that she had COVID about a month ago and has been struggling to return to baseline. She gets IV infusions twice weekly, had been getting them 3 times weekly prior to the start of the school year and was doing better at that time. Had loose stools yesterday and had a couple bouts of diar anderson today. Thinks that this may have worsened her episode. Heart rate was up to 150 at home on a sting about 1 hour. Has been consistently in the 100s after triage while waiting to be seen and was low 1 teens in triage. She denies any abdominal pain, no chest pain, no shortness of breath. No focal new neurological changes. The numbness in the face and hands is bilateral and consistent with prior episodes. She does feel like this episode is consistent with prior episodes and does not think that extensive blood workup would be necessary. She does typically receive IV fluids with good success. She tried using some Zofran prior to coming to the ED and still does feel nauseated though she has not vomited. No history of coronary artery disease, no history of coagulopathy or DVT. Only new change has been starting amitriptyline 3 days ago 25 mg at bedtime to help with insomnia and other symptoms related to her POTS. Past medical history notable for mast cell activation syndrome, EDS, PCOS. She has an IUD for contraception, denies chance . Home meds reviewed, unchanged from last visit. It is to notable that she does take an injectable GLP 1 medication. Allergies reviewed. ROS is notable for the tachycardia which has improved quite a bit, diarrhea and generalized symptoms as above. Otherwise denies times 12 systems. Related Data Home Medications ?Medication ?Instructions ?Recorded ?Confirmed levonorgestrel 17.5 mcg/24 hr (up 1 device intrauterin e ONCE 12/13/21 02/13/25 to 5 yrs) 19.5mg intrauterine device cetirizine 10 mg capsule (Zyrtec) 10 mg PO TID 2 4 02/13/25 cholecalciferol (vitamin D3) 125 125 mcg PO QDAY 05/0502/13/25 mcg (5,000 unit) capsule cimetidine 200 mg tablet 200 mg PO BID 05/05/2302/13 magnesium citrate 100 mg capsule 400 mg PO QDAY 02/13/25 naltrexone 4.5 mg capsule 6.5 mg PO QDAY 05/05/2312/30 quercetin 500 mg capsule 500 mg PO BID 05/05/2302/13 riboflavin (vitamin B2) 100 mg 100 mg PO QDAY 05/05/23 02/13/25 tablet fludrocortisone 0.1 mg tablet 0.2 mg PO DAILY 08/25/23 02/13/25 ondansetron HCl 4 mg tablet 4 mg PO Q8H PRN nausea and vomiting 08/25/23 02/13/25 clonidine HCl 0.2 mg tablet 0.2 mg PO QHS 10/17/2312/30 cromolyn 100 mg/5 mL oral 100 - 200 mg PO QID 06/11/24 02/13/25 concentrate prednisone 20 mg tablet 40 mg PO DAILY PRN 01/27/25 02/07/25 amitriptyline 25 mg tablet 25 mg PO DAILY 02/11/2512/30 Previous Rx's ?Medication ?Instructions ?Recorded tirzepatide 7.5 mg/0.5 mL 7.5 mg (0.5 mL) subcut QWEEK #2 mL 11/11/24 subcutaneous pen injector Allergies Allergy/AdvReac Type Severity Reaction Status Date / Time adhesive Allergy Intermediate blister, Verified 02/07/25 14:13 itching amoxicillin (From Augmentin) Allergy Intermediate Nausea Verified 02/07/25 14:13 clavulanic acid (From Allergy Intermediate Nausea Verified 02/07/25 14:13 Augmentin) buspirone Allergy Mild Rash Verified 02/07/25 14:13 Latex, Natural Rubber Allergy Verified 02/07/25 14:13 loratadine (From Claritin) AdvReac stomachache Verified 02/07/25 14:13 [facility] Medical History Rash ?R21 - Rash and other nonspecific skin eruption (ICD-10) PCOS (polycystic ovarian syndrome) ?E28.2 - Polycystic ovarian syndrome (ICD-10) History of depression ?Z86.59 - Personal history of other mental and behavioral disorders (ICD-10) Seasonal allergies ?J30.2 - Other seasonal allergic rhinitis (ICD-10) IUD (intrauterine device) in place ?Z97.5 - Presence of (intrauterine) contraceptive device (ICD-10) Obesity with body mass index greater than 30 ?E66.9 - Obesity, unspecified (ICD-10) Hyperlipidemia ?E78.5 - Hyperlipidemia, unspecified (ICD-10) Localized scleroderma ?L94.0 - Localized scleroderma [morphea] (ICD-10) Breakthrough bleeding associated with intrauterine device (IUD) ?N92.1 - Excessive and frequent menstruation with irregular cycle (ICD-10) ?Z97.5 - Presence of (intrauterine) contraceptive device (ICD-10) Menometrorrhagia ?N92.1 - Excessive and frequent menstruation with irregular cycle (ICD-10) Mast cell activation syndrome ?D89.40 - Mast cell activation, unspecified (ICD-10) 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, unspecified (ICD-10) Dysautonomia ?G90.1 - Familial dysautonomia [Mario-Day] (ICD-10) POTS (postural orthostatic tachycardia syndrome) ?G90.A - Postural orthostatic tachycardia syndrome [POTS] (ICD-10) Pre-diabetes ?R73.03 - Prediabetes (ICD-10) Migraine with aura ?G43.109 - Migraine with aura, not intractable, without status migrainosus (ICD-10) History of spontaneous (2017) ?Z87.59 - Personal history of other complications of , childbirth and the puerperium (ICD-10) History of pre-eclampsia ?Z87.59 - Personal history of other complications of , childbirth and the puerperium (ICD-10) History of gestational hypertension ?Z87.59 - Personal history of other complications of , childbirth and the puerperium (ICD-10) Surgical History History of placement of ear tubes (09/15/15) ?Z96.22 - Myringotomy tube(s) status (ICD-10) History of laparoscopic cholecystectomy (01/2013) ?Z90.49 - Acquired absence of other specified parts of digestive tract (ICD- 10) History of ?Z98.891 - History of uterine scar from previous surgery (ICD-10) Family History Mother Heart disease High blood pressure Depression Maternal Grandmother Breast cancer Ovarian cancer Maternal Grandfather Stroke Social History Narrative: . Master's degree education. Non smoker. Denies alcohol use or recreational drug use. No concerns with safety or abuse. What is your current living situation?: I presently have a place to live Problems where you live: no known problems In the past 12 months, utilities in danger of being shut off: no In past 12 months, lack of transportation kept you from medical appts, meetings, work, or getting things needed for daily living: no In the past 12 mos, have been you worried that your food would run out before you had money to buy more?: never true In the past 12 mos, the food you bought just didn't last and you didn't have money to buy more?: often true Smoking Status: Never smoker How often do you have a drink containing alcohol: monthly or less AUDIT-C Alcohol total score: 1 Non-prescribed substance use: marijuana (any form) How often does anyone, including family, friends and others, physically hurt you : never How often does anyone, including family, friends and others, insult or talk down to you: never How often does anyone, including family, friends and others, threaten you with harm: never How often does anyone, including family, friends and others, scream or curse at you: never Do you think of yourself as: straight/heterosexual Gender Identity: female Are you currently sexually active: Yes Health Related Social Needs: food insecurity (Z59.41) Exam Const: Vital Signs, click to edit/add: Vital Signs - 24 hr 02/13/25 23:45 02/13/25 23:50 02/13/25 23:51 Temperature 97.7 F Pulse Rate 117 H 113 H Pulse Rate [Pulse Oximeter] 126 H Respiratory Rate 16 Blood Pressure 148/102 H Blood Pressure [Ri ght Upper Arm] 148/102 H Pulse Oximetry 100 100 100 Oxygen Delivery Me thod Room Air 02/14/25 00:00 02/14/25 00:16 02/14/25 00:20 Temperature Pulse Rate 95 93 96 Pulse Rate [Pulse Oximeter] Respiratory Rate Blood Pressure 135/96 H Blood Pressure [Ri ght Upper Arm] Pulse Oximetry 98 95 96 Oxygen Delivery Me thod 02/14/25 00:29 02/14/25 00:30 02/14/25 00:45 Temperature Pulse Rate 90 93 Pulse Rate [Pulse Oximeter] Respiratory Rate Blood Pressure Blood Pressure [Ri ght Upper Arm] 135/96 H Pulse Oximetry 94 92 Oxygen Delivery Me thod 02/14/25 01:00 Temperature Pulse Rate 88 Pulse Rate [Pulse Oximeter] Respiratory Rate Blood Pressure Blood Pressure [Ri ght Upper Arm] Pulse Oximetry 92 Oxygen Delivery Me thod Documenting provider has reviewed patient's vital signs: yes Common normals: no apparent distress and alert General appearance: comfortable and well kempt Other: Appears nontoxic. Good historian, speaks in full sentences. HENMT: Common normals: normocephalic, moist oral mucous membranes and oropha rynx normal Head and scalp: normocephalic Eye: Common normals: conjunctivae normal General eye: normal appearance of both eyes Conjunctiva: conjunctiva(e) normal Neck & C-Spine: Common normals: full ROM and no lymphadenopathy General: normal visual inspection Resp: Common normals: normal respiratory effort, no use of accessory muscles and clear to auscultation bilaterally Effort & inspection: able to speak in complete sentences Auscultation: clear to auscultation bilaterally Cardio: Common normals: regular rate, regular rhythm, S1 normal heart sound, S2 normal heart sound and no murmurs Rate: regular rate Rhythm: regular rhythm Heart sounds: S1 normal and S2 normal Extremity: Common normals: normal to inspection, normal capillary refill and no pedal edema General: normal exam except as noted Neuro: Common normals: moves all extremities Sensorium/orientation: alert Speech: speech normal Psych: Appearance: well kempt Attitude: engaged Activity/motor behavior: appropriate eye contact Attention/concentration: attention grossly intact Memory/cognition: memory grossly intact Insight: insight good Judgement: judgment good Skin: Common normals: no rashes or lesions noted General skin exam: no rashes or lesions noted Course Course ED Course: 39-year-old female with no history of arrhythmias presenting with episode of tachycardia at home, improved quite a bit prior to arrival. History of POTS and multiple prior similar episodes that improved with IV fluids. Recent similar episode 3 weeks ago, extensive workup is reviewed. Offered patient IV fluid and 0.5 mg of lorazepam for the nausea. We discussed repeating labs. At this time, EKG looks very reassuring with a heart rate under 110. She is of the mind set and verbalizes this that she does not think repeat labs are necessary and I am inclined to agree. Will see how she response to the medications and consider more extensive workup if the typical treatment is not helpful for her. Heparin lock once IV fluids are completed. Reevaluation(s) Time of Reevaluation #1: 01:20 Reevaluation #1: Patient reported to the nursing staff that she is feeling better. Once her fluids are completed, she will be discharged home. Heparin lock of [employer] in interim. Primary care follow-up if persistent symptoms, alarm symptoms that would warrant ED re-evaluation provided in written instructions. Vital Signs Vital signs: Initial Vital Signs Temperature 97.7 F 02/13/25 23:45 Temperature Source Temporal Artery Scan 02/13/25 23:45 Pulse Rate 126 H 02/13/25 23:45 Respiratory Rate 16 02/13/25 23:45 Blood Pressure 148/102 H 02/13/25 23:45 Blood Pressure Mean 117 H 02/13/25 23:45 Blood Pressure Position Sitting 02/13/25 23:45 Pulse Oximetry 100 02/13/25 23:45 Oxygen Delivery Method Room Air 02/13/25 23:45 Vital Signs Temperature 97.7 F 02/13/25 23:45 Pulse Rate 126 H 02/13/25 23:45 Respiratory Rate 16 02/13/25 23:45 Blood Pressure 148/102 H 02/13/25 23:45 Pulse Oximetry 100 02/13/25 23:45 Oxygen Delivery Method Room Air 02/13/25 23:45 Temperature 97.7 F 02/13/25 23:45 Pulse Rate 88 02/14/25 01:00 Respiratory Rate 16 02/13/25 23:45 Blood Pressure 135/96 H 02/14/25 00:29 Pulse Oximetry 92 02/14/25 01:00 Oxygen Delivery Method Room Air 02/13/25 23:45 Medications Administered Medications: Generic Name Dose Route Start Last Admin Trade Name Leann PRN Reason Stop Dose Admin Heparin Sodium (Porcine) 500 unit 02/14/25 00:13 02/14/25 01:16 Heparin 500 Unit/5 Ml Syringe IVF 02/14/25 00:14 500 unit ONCE ONE Administration Sodium Chloride 1,000 mls @ 1,000 mls/hr 02/14/25 00:12 02/14/25 01:16 0.9 % Sodium Chloride 1000 Ml IV 02/14/25 01:11 Infused .Q1H FRANK Infusion Lorazepam 0.5 mg 02/14/25 00:12 02/14/25 00:18 Lorazepam 2 Mg/Ml Inj IVP 02/14/25 00:13 0.5 mg ONCE ONE Administration Medical Decision Making ECG Data Attestation: I personally reviewed and interpreted this ECG as follows: Prior ECG tracings: available for review (Comparison 01/27/2025) Interpretation: Sinus rhythm with a rate of 108. Normal intervals and axis. No significant ST or T-wave abnormalities. Unchanged from prior, normal EKG Discharge Plan Discharge Clinical Impression: POTS (postural orthostatic tachycardia syndrome) Patient Disposition: Home, Self-Care Condition: Improved Instructions: POTS (Postural Orthostatic Tachycardia Syndrome) (ED) Additional Instructions: I am glad that the fluids in medications were helpful for you. Please continue your current treatment plan as directed by your primary treating physician. Return to the emergency department if you have severe persistent symptoms again. You are medically cleared to return to all typical duties Activity Level: No Restrictions Discharge Diet: Regular Prescriptions: No Action cromolyn 100 mg/5 mL concentrate 100 - 200 mg PO QID levonorgestrel 17.5 mcg/24 hrs (5 yrs) 19.5 mg intrauterine device 1 device intrauterine ONCE Zyrtec 10 mg capsule 10 mg PO TID naltrexone 4.5 mg capsule 6.5 mg PO QDAY cimetidine 200 mg tablet 200 mg PO BID riboflavin (vitamin B2) 100 mg tablet 100 mg PO QDAY magnesium citrate 100 mg capsule 400 mg PO QDAY quercetin 500 mg capsule 500 mg PO BID cholecalciferol (vitamin D3) 125 mcg (5,000 unit) capsule 125 mcg PO QDAY amitriptyline 25 mg tablet 25 mg PO DAILY fludrocortisone 0.1 mg tablet 0.2 mg PO DAILY ondansetron HCl 4 mg tablet 4 mg PO Q8H PRN (Reason: nausea and vomiting) Rx Instructions: use for nausea related to migraine clonidine HCl 0.2 mg tablet 0.2 mg PO QHS prednisone 20 mg tablet 40 mg PO DAILY PRN tirzepatide 7.5 mg/0.5 mL pen injector 7.5 mg subcut QWEEK Qty: 2 0RF Follow Up/Referrals: Janay Qureshi MD [Primary Care Provider, Family Practice] Stand Alone Forms: [facility] Info Instructions
--- OUTSIDE RECORDS SUMMARY | 2025-02-14 00:32 | XMS_ITS | Encounter Summary ---
Author Organization [facility] Address [address] [place] [address] Care Team Providers Care Director Industrial Relations Name Role Phone AjpuneetDevika MD Unavailable [phone] Shalom Renteria MD Unavailable Melissa Melvin PA-C Unavailable Shalom Renteria MD Primary Care Provider [phone] Malini Anderson PA-C Unavailable [phone] Melissa Melvin PA-C Unavailable Malini Anderson PA-C Unavailable [phone] Encounter Details Date Type Department Care Team [...] Sex Assigned at Female 02/16/2019 10:59 AM WREATH INSPECTOR Legal Sex Female 11:51 AM CDT Gender Identity Female 02/16/2019 10:59 AM WREATH INSPECTOR Sexual Orientation Bisexual 08/08/2023 1: 47 PM CDT documented as of this encounter Plan of Treatment Upcoming Encounters Date Type Department Care Team (Late st Contact Info) Description 02/21/2025 12:30 PM WREATH INSPECTOR Therapy Visit [address] [address] Alysa Chinchilla MD [facility] [address] [address] Monica Kellogg, PT [address] [place] [address] 03/21/2025 12:30 PM WREATH INSPECTOR Therapy Visit [address] [address] Alysa Chinchilla MD [facility] [address] [place] [address] [place] Monica Ni, PT [address] [place] [address] 05/02/2025 4:30 PM WREATH INSPECTOR Office Visit [facility] [address] 4th [place] [phone] Shalom Renteria MD [address] [place] [address] 09/09/2025 2:45 PM CDT Office Visit [facility] [address] [phone] Malini Anderson PA-C [address] [place] [address] documented as of this encounter Visit Diagnoses Not on filedocumented in this encounter Additional Health Concerns Assessment Noted Time PHQ-9 Depression Total Score: 5 04/07/19 25 2:20 PM WREATH INSPECTOR documented as of this encounter Care Teams Director Industrial Relations Relationship Specialty Start Date End Date Shalom Renteria MD [address] [place] [address] PCP - General Internal Medicine 03/03/24 Devika Fleming MD [address] [place] [address] Neurology 10/30/21 Shalom Renteria MD [address] [place] [address] Assigned PCP 12/29/23 Melissa Melvin PA-C [address] [place] [address] Physician [employer] Gastroenterology 03/03/24 Malini Anderson PA-C [address] [place] [address] Physician [employer] 03/03/24 Melissa Melvin PA-C [address] [place] [address] Assigned Gastroenterology Provider 04/29/24 Malini Anderson PA-C [address] [place] [address] [phone] Assigned Dermatology Provider 09/27/24 documented as of this encounter
--- OUTSIDE RECORDS SUMMARY | 2025-02-14 00:32 | XMS_ITS | Encounter Summary ---
Author Organization [place] [facility] Address [address] [place] [address] Care Team Providers Care Hand Twister Name Role Phone AjpuneetDevika MD Unavailable [phone] Shalom Renteria MD Unavailable Melissa Melvin-C Unavailable Shalom Renteria MD Primary Care Provider [phone] Malini Anderson-C Unavailable [phone] Melissa Melvin-C Unavailable Malini Anderson-C Unavailable [phone] Encounter Details Date Type Department Care Team (Late st Contact Info) Description 03/29/2024 MyC Medical Advice [address] [phone] Yecenia Jones Social History Tobacco [...] an abandoned building, in an overnight senior living, or couch-surfing.) Yes 11/23/2023 Are you worried [...] Sex Assigned at Female 02/16/2019 10:59 AM GRAIN ELEVATOR WORKER Legal Sex Female 11:51 AM CDT Gender Identity Female 02/16/2019 10:59 AM GRAIN ELEVATOR WORKER Sexual Orientation Bisexual 08/08/2023 1: 47 PM CDT documented as of this encounter Plan of Treatment Upcoming Encounters Date Type Department Care Team (Late st Contact Info) Description 02/21/2025 12:30 PM GRAIN ELEVATOR WORKER Therapy Visit [facility] [address] [place] [address] [address] [place] [address] Alysa Chinchilla MD [facility] [address] [address] Monica Kellogg, PT [address] [place], [place] [phone] 03/21/2025 12:30 PM GRAIN ELEVATOR WORKER Therapy Visit [facility] [address] [facility] [address] [place] [address] Alysa Chinchilla MD [facility] [address] [place] [address] Monica Kellogg, PT [address] [place] [address] 05/02/2025 4:30 PM GRAIN ELEVATOR WORKER Office Visit [facility] Internal Medicine [address] 4th [place] [phone] Shalom Renteria MD [address] [place] [address] [phone] 09/09/2025 2:45 PM CDT Office Visit [facility] [address] [phone] Malini Anderson PA-C [address] [place] [address] [phone] documented as of this encounter Visit Diagnoses Not on filedocumented in this encounter Additional Health Concerns Assessment Noted Time PHQ-9 Depression Total Score: 9 11/28/19 12:43 PM CDT documented as of this encounter Care Teams Hand Twister Relationship Specialty Start Date End Date Shalom Renteria MD [address] [place] [address] [phone] PCP - General Internal Medicine 03/03/24 Devika [place] MD [address] [place] [address] Neurology 10/30/21 Shalom Renteria MD [address] [place] [address] Assigned PCP 12/29/23 Melissa Melvin PA-C [address] [place] [address] Physician Chemotherapist Gastroenterology 03/03/24 Malini Anderson PA-C [address] [place] [address] Physician Chemotherapist 03/03/24 Melissa Melvin PA-C [address] [place] [address] Assigned Gastroenterology Provider 04/29/24 Malini Anderson PA-C [address] [place] [address] [phone] Assigned Dermatology Provider 09/27/24 documented as of this encounter
--- OUTSIDE RECORDS SUMMARY | 2025-02-14 00:32 | XMS_ITS | Clinical Summary ---
Author Organization [facility] Address [address] [facility] [place] [address] Care Team Providers Care Medical Billing Coordinator Name Role Phone No Primary/Referring, Phy Primary Care Provider Unavailable Source Comments You are receiving this document as you are listed as the primary care provider,follow-up provider, or the patient has been referred to you for consultation.This is in compliance with the Medicare and[employer]ier Health[employer]id EHR Incentive Program,which states Providers who transition their patient to another setting of careor provider of care or refers their patient to another provider of care shouldprovide summary care record for each transition of care or referral. [facility] Allerg[facility] Active Allergy Reactions Criticality Noted Date [...] Comments Blood Pressure 115/90 03/11/2016 8:45 PM COAGULANT DIPPER Pulse 87 03/11/2016 8:45 PM COAGULANT DIPPER Temperature 36.4 C (97.5 F) 03/11/2016 8:44 PM COAGULANT DIPPER Respiratory Rate 22 03/11/2016 8:44 PM COAGULANT DIPPER Oxygen Saturation 96% 03/11/2016 8:44 PM COAGULANT DIPPER Inhaled Oxygen Concentration - - Weight 107 kg (236 lb) 03/11/2016 8:44 PM COAGULANT DIPPER Height 168.9 cm (5' 6.5) 03/11/2016 8:44 PM COAGULANT DIPPER Body Mass Index 37.52 03/11/2016 8:44 PM COAGULANT DIPPER Plan of Treatment Health Maintenance Due Date [...] this topic Insurance SELF INSURED Care Teams Medical Billing Coordinator Relationship Specialty Start Date End Date No Primary/Referring, Phy PCP - General 03/11/16
--- OUTSIDE RECORDS SUMMARY | 2025-02-14 00:32 | XMS_ITS | Encounter Summary ---
Author Organization [place] Address [address] [place] [address] Care Team Providers Care Driver Manager Name Role Phone AjpuneetDevika MD Unavailable [phone] Shalom Renteria MD Unavailable Melissa Melvin-C Unavailable Shalom Renteria MD Primary Care Provider [phone] Malini Anderson-C Unavailable [phone] Melissa Melvin PA-C Unavailable Malini Anderson-C Unavailable [phone] Encounter Details Date Type Department Care Team (Late st Contact Info) Description 12/03/2024 [facility] Internal Medicine [address] [address] Shalom Renteria MD [address] [place] [address] Social History Tobacco Use Types Packs/Day [...] Sex Assigned at Female 02/16/2019 10:59 AM FIRST GRADE TEACHER Legal Sex Female 11:51 AM CDT Gender Identity Female 02/16/2019 10:59 AM FIRST GRADE TEACHER Sexual Orientation Bisexual 08/08/2023 1: 47 PM CDT documented as of this encounter Plan of Treatment Upcoming Encounters Date Type Department Care Team (Late st Contact Info) Description 02/21/2025 12:30 PM FIRST GRADE TEACHER Therapy Visit [facility] [address] [place] [address] [address] [place] [address] Alysa Chinchilla MD [address] [place] [address] Valdez Monica Ni, PT [address] [place], [place] [address] 03/21/2025 12:30 PM FIRST GRADE TEACHER Therapy Visit [facility] [address] [facility] [address] [place] [address] Alysa Chinchilla MD [address] [address] Valdez Monica Ni, PT [address] [place] [address] 05/02/2025 4:30 PM FIRST GRADE TEACHER Office Visit [facility] Internal Medicine [address] 4th [place] [phone] Shalom Renteria MD [address] [place] [address] 09/09/2025 2:45 PM CDT Office Visit [facility] [address] [phone] Malini Anderson PA-C [address] [address] documented as of this encounter Visit Diagnoses Not on filedocumented in this encounter Additional Health Concerns Assessment Noted Time PHQ-9 Depression Total Score: 5 04/07/19 25 2:20 PM FIRST GRADE TEACHER documented as of this encounter Care Teams Driver Manager Relationship Specialty Start Date End Date Shalom Renteria MD [address] [place] [address] PCP - General Internal Medicine 03/03/24 Devika Fleming MD [address] [place] [address] Neurology 10/30/21 Shalom Renteria MD 909 [place] [address] Assigned PCP 12/29/23 Melissa Melvin PA-C [address] [place] [address] Physician Supervisor Component Assembler Gastroenterology 03/03/24 Malini Anderson PA-C [address] [place] [address] Physician Supervisor Component Assembler 03/03/24 Melissa Melvin PA-C [address] [place] [address] Assigned Gastroenterology Provider 04/29/24 Malini Anderson PA-C [address] [place] [address] Assigned Dermatology Provider 09/27/24 documented as of this encounter
--- OUTSIDE RECORDS SUMMARY | 2025-02-14 00:32 | XMS_ITS | Encounter Summary ---
Author Organization [place] Address [address] [place] [address] Care Team Providers Care Area Captain Name Role Phone AjpuneetDevika MD Unavailable [phone] Shalom Renteria MD Unavailable Melissa Melvin-C Unavailable Shalom Renteria MD Primary Care Provider [phone] Malini Anderson-C Unavailable [phone] Melissa Melvin PA-C Unavailable Malini Anderson-C Unavailable [phone] Encounter Details Date Type Department Care Team (Late st Contact Info) Description 03/17/2024 [facility] Internal Medicine [address] [address] Shalom Renteria MD [address] [place] [address] Social History Tobacco Use Types Packs/Day [...] Sex Assigned at Female 02/16/2019 10:59 AM SCOW CAPTAIN Legal Sex Female 11:51 AM CDT Gender Identity Female 02/16/2019 10:59 AM SCOW CAPTAIN Sexual Orientation Bisexual 08/08/2023 1: 47 PM CDT documented as of this encounter Plan of Treatment Upcoming Encounters Date Type Department Care Team (Late st Contact Info) Description 02/21/2025 12:30 PM SCOW CAPTAIN Therapy Visit [facility] [address] [place] [address] [address] [place] [address] Alysa Chinchilla MD [address] [place] [address] Valdez Monica Ni, PT 909 [place] [address] 03/21/2025 12:30 PM SCOW CAPTAIN Therapy Visit [facility] [address] [facility] [address] [place] [address] Alysa Chinchilla MD [address] [address] Valdez, Monica Ni, PT 909 [place] [address] 05/02/2025 4:30 PM SCOW CAPTAIN Office Visit [facility] Internal Medicine [address] 4th [place] [phone] Shalom Renteria MD [address] [place] [address] 09/09/2025 2:45 PM CDT Office Visit [facility] [address] [phone] Malini Anderson PA-C [address] [address] documented as of this encounter Visit Diagnoses Not on filedocumented in this encounter Additional Health Concerns Assessment Noted Time PHQ-9 Depression Total Score: 9 11/28/19 24 12:43 PM CDT documented as of this encounter Care Teams Area Captain Relationship Specialty Start Date End Date Shalom Renteria MD [address] [place] [address] PCP - General Internal Medicine 03/03/24 Devika Fleming MD [address] [place] [address] Neurology 10/30/21 Shalom Renteria MD 909 [place] [address] Assigned PCP 12/29/23 Melissa Melvin PA-C [address] [place] [address] Physician Courtroom Clerk Gastroenterology 03/03/24 Malini Anderson PA-C [address] [place] [address] Physician Courtroom Clerk 03/03/24 Melissa Melvin PA-C [address] [place] [address] Assigned Gastroenterology Provider 04/29/24 Malini Anderson PA-C [address] [place] [address] Assigned Dermatology Provider 09/27/24 documented as of this encounter
--- OUTSIDE RECORDS SUMMARY | 2025-02-14 00:32 | XMS_ITS | Encounter Summary ---
Author Organization [place] Address [address] [place] [address] Care Team Providers Care Software Tester Name Role Phone AjpuneetDevika MD Unavailable [phone] Shalom Renteria MD Unavailable Melissa Melvin PA-C Unavailable Shalom Renteria MD Primary Care Provider [phone] Malini Anderson-C Unavailable [phone] Melissa Melvin PA-C Unavailable Malini Anderson PA-C Unavailable [phone] Encounter Details Date Type Department Care Team (Late st Contact Info) Description 03/08/2024 [facility] [address] [place] [address] [address] [place] [address] Kimberly Suh, PT [address] [place] [address] Social History Tobacco Use Types Packs/Day Years [...] Sex Assigned at Female 02/16/2019 10:59 AM LINE PRODUCTION COOK Legal Sex Female 11:51 AM CDT Gender Identity Female 02/16/2019 10:59 AM LINE PRODUCTION COOK Sexual Orientation Bisexual 08/08/2023 1: 47 PM CDT documented as of this encounter Plan of Treatment Upcoming Encounters Date Type Department Care Team (Late st Contact Info) Description 02/21/2025 12:30 PM LINE PRODUCTION COOK Therapy Visit [address] [place] [address] Alysa Chinchilla MD [facility] [address] [address] Joy Kellogghan Raine, PT [address]09 [place] [address] 03/21/2025 12:30 PM LINE PRODUCTION COOK Therapy Visit [facility] [address] [facility] [address] [place] [address] Alysa Chinchilla MD [address] [address] Valdez, Monica Ni, PT 909 [place] [address] 05/02/2025 4:30 PM LINE PRODUCTION COOK Office Visit [facility] Internal Medicine [address] 4th [place] [phone] Shalom Renteria MD [address] [place] [address] 09/09/2025 2:45 PM CDT Office Visit [facility] [address] [phone] Malini Anderson PA-C [address] [place] [address] documented as of this encounter Visit Diagnoses Not on filedocumented in this encounter Additional Health Concerns Assessment Noted Time PHQ-9 Depression Total Score: 9 11/28/19 24 12:43 PM CDT documented as of this encounter Care Teams Software Tester Relationship Specialty Start Date End Date Shalom Renteria MD [address] [place] [address] PCP - General Internal Medicine 03/03/24 Devika Fleming MD [address] [place] [address] MD Neurology 10/30/21 Shalom Renteria MD [address] [place] [address] Assigned PCP 12/29/23 Melissa Melvin PA-C [address] [place] [address] Physician Front Desk Receptionist Gastroenterology 03/03/24 Malini Anderson PA-C [address] [place] [address] Physician Front Desk Receptionist 03/03/24 Melissa Melvin PA-C [address] [facility] [place] [address] Assigned Gastroenterology Provider 04/29/24 Malini Anderson PA-C [address] [place] [address] Assigned Dermatology Provider 09/27/24 documented as of this encounter
--- OUTSIDE RECORDS SUMMARY | 2025-02-14 00:32 | XMS_ITS | Encounter Summary ---
Author Organization [place] Address [address] [place] [address] Care Team Providers Care Meterman Name Role Phone AjpuneetDevika MD Unavailable [phone] Shalom Renteria MD Unavailable Melissa Melvin PA-C Unavailable Shalom Renteria MD Primary Care Provider [phone] Malini Anderson PA-C Unavailable [phone] Melissa Melvin PA-C Unavailable Malini Anderson PA-C Unavailable [phone] Encounter Details Date Type Department Care Team [...] Sex Assigned at Female 02/16/2019 10:59 AM SHANK SANDER Legal Sex Female 11:51 AM CDT Gender Identity Female 02/16/2019 10:59 AM SHANK SANDER Sexual Orientation Bisexual 08/08/2023 1: 47 PM CDT documented as of this encounter Plan of Treatment Upcoming Encounters Date Type Department Care Team (Late st Contact Info) Description 02/21/2025 12:30 PM SHANK SANDER Therapy Visit [address] [address] Alysa Chinchilla MD [facility] [address] [address] Monica Kellogg, PT [address] [place] [address] 03/21/2025 12:30 PM SHANK SANDER Therapy Visit [address] [address] Alysa Chinchilla MD [facility] 4700 [place] [address] Valdez Monica Ni, PT [address] [place] [address] 05/02/2025 4:30 PM SHANK SANDER Office Visit [facility] Internal Medicine [address] 4th [place] [phone] Shalom Renteria MD [address] [place] [address] 09/09/2025 2:45 PM CDT Office Visit [facility] [address] [phone] Malini Anderson PA-C [address] [place] [address] documented as of this encounter Visit Diagnoses Not on filedocumented in this encounter Additional Health Concerns Assessment Noted Time PHQ-9 Depression Total Score: 5 04/07/19 25 2:20 PM SHANK SANDER documented as of this encounter Care Teams Meterman Relationship Specialty Start Date End Date Shalom Renteria MD [address] [place] [address] PCP - General Internal Medicine 03/03/24 Devika Fleming MD [address] [place] [address] Neurology 10/30/21 Shalom Renteria MD [address] [place] [address] Assigned PCP 12/29/23 Melissa Melvin PA-C [address] [place] [address] Physician Environmental Marketer Gastroenterology 03/03/24 Malini Anderson PA-C [address] [place] [address] Physician Environmental Marketer 03/03/24 Melissa Melvin PA-C [address] [place] [address] Assigned Gastroenterology Provider 04/29/24 Malini Anderson PA-C [address] [place] [address]26[address] Assigned Dermatology Provider 09/27/24 documented as of this encounter
--- OUTSIDE RECORDS SUMMARY | 2025-02-14 00:32 | XMS_ITS | Clinical Summary ---
Author Organization [facility] Address [address] [place] [address] Care Team Providers Care Clinical Analyst Name Role Phone Unavailable Primary Care Provider [...] on file Legal Sex Female 5:26 AM FIELD PROFESSIONAL Gender Identity Not on file Sexual Orientation [...] Comments Blood Pressure 102/64 04/21/2023 2:08 PM FIELD PROFESSIONAL Pulse 96 04/21/2023 2:08 PM FIELD PROFESSIONAL Temperature 36.4 C (97.6 F) 05/12/2017 3:29 PM FIELD PROFESSIONAL Respiratory Rate 16 07/17/2018 12:1 2 PM CDT Oxygen Saturation 100% 04/21/2023 2:08 PM FIELD PROFESSIONAL Inhaled Oxygen Concentration - - Weight 108.1 kg (238 lb 6.4 oz) 04/21/2023 2:08 PM FIELD PROFESSIONAL Height 170 cm (5' 6.93) 04/21/2023 2:08 PM FIELD PROFESSIONAL Body Mass Index 37.42 04/21/2023 2:08 PM FIELD PROFESSIONAL Plan of Treatment Health Maintenance Due Date [...] age 21-65 05/05/2026 4 ([facility]), 10/15/2019, 10/15/2019, Additional history exists Tetanus booster 07/15/2028 07/15/2018, 12/0 05/2010, 07/27/1996 RSV vaccine for adults or (1 - 1-dose 75+ series) 2059 Hepatitis B series for 19+ Completed 02/13, 08/08/1998, 07/07/1998 Pneumococcal series for age 6-49 Aged Out No longer eligible based on patient's age to complete this topic Procedures Procedure Name Priority Date/Time Associated Diagnosis Comments DIRECTOR OF FLIGHT OPERATIONS THIN PREP PAP SCREEN IMAGED Routine 10/15/2019 2:00 PM CDT from Last 3 Months or Most Recently Relevant to Health Maintenance Results * DIRECTOR OF FLIGHT OPERATIONS THIN PREP PAP SCREEN IMAGED (10/15/2019 2:00 PM CDT) Case Report Gynecologic Cytology Report Case: [id number] Authorizing Provider: Susie Vogt MD Collected: 10/15/2019 1400 Ordering Location: [facility] Received: 10/19/2019 0948 First Screen: Giovanny Perea Specimen: DIRECTOR OF FLIGHT OPERATIONS ThinPrep Vial Screening, Cervical/Vaginal 10/20/2019 12:34 PM CDT [facility] INTERPRETATION/ RESULT NEGATIVE FOR INTRAEPITHELIAL LESION OR MALIGNANCY (NIL) (none) 10/20/2019 12:34 PM CDT [facility] [employer] [facility] ENTRAL LAB[facility]ORY at 1234 CDT SPECIMEN ADEQUACY Satisfactory for evaluation Endocervical component present 10/20/2019 12:34 PM CDT [facility] [employer] [facility] ENTRAL LABORATORY HPV REQUEST HPV and PAP 10/20/2019 12:34 PM CDT [facility]TR[facility] LABOR[facility] Last Pap Date 07/24/2010 10/20/2019 12:34 PM CDT [facility] [employer] LABORATORY ENTRAL LABORATORY Last Pap Result NIL 0 12:34 PM CDT [facility] [employer] ENTRAL LABORATORY Menstrual Status 10/20/2019 12:34 PM CDT [facility] [employer] [facility] ENTRAL LABORATORY Comment:IUD Additional Information 10/20/2019 12:34 PM CDT [facility] [employer] [facility] ENTRAL LABORATORY Comment: Interpreted at [facility] - [address] [place] [address], [place] [address] Automated Review Successful 10/20/2019 12:34 PM CDT [facility] ENTRAL LABORATORY Comment:Specimen processed s uccessfully by automated instrumentation instructor device, [employer] Coco[employer] Imaging System, [employer] ANCILLARY TESTING DIRECTOR OF FLIGHT OPERATIONS HPV Ordered, Please see separate report 10/20/2019 12:34 PM CDT [facility] ENTRAL LABORATORY Note The pap test is [...] and malignant lesions. 10/20/2019 12:34 PM CDT [facility]TRTN LABORATORY Other (Cervical/Vagina l) 10/15/2019 2:00 PM CDT 10/19/2019 9:48 AM CDT us Susie Vogt MD PATHOLOGY/CYTOLOGY Final R esult [facility] [address] [place] [address], [place] from Last 3 Months or Most Recently Relevant to Health Maintenance Insurance [facility] [place] [address] WORKERS COMP
--- OUTSIDE RECORDS SUMMARY | 2025-02-14 00:33 | XMS_ITS | Encounter Summary ---
Author Organization [place] Address [address] [place] [address] Care Team Providers Care Driver Operator Name Role Phone Devika Fleming MD Unavailable [phone] Shalom Renteria MD Unavailable Melissa Melvin PA-C Unavailable Shalom Renteria MD Primary Care Provider [phone] Malini Anderson PA-C Unavailable [phone] Melissa Melvin PA-C Unavailable Malini Anderson PA-C Unavailable [phone] Reason for Referral * Consultation (Routine: Next available opening) - Pending Review Specialty Diagnoses / Procedures Referred By Edi ayala Referred To Contact Gastroenterology Diagnoses Chronic nausea Alternating constipation and diarrhea Shalom Renteria MD [address] [place] [address] Phone: tel: fax: [address] [address] Phone: tel: Referral ID Status Reason Start Date Expiration Date V isits Requested Visits Authorized [id number] Pending Review 05/17/2024 05/17/2025 1 1 Question Answer Reason for Referral: General GI Patient Scheduling Instructions: [facility] will call you to coordinate your care as prescribed by the provider. If you don t hear from a customer contact representative within 2 business days, please call . Additional Information: Natali Mahoney (preferred), or Abhijit Street, or Raul Sepulveda Comments Please be aware that coverage of these services is subject to the terms and limitations of your health insurance plan. Call member services at your health plan with any benefit or coverage questions. [facility] will call you to coordinate your care as prescribed by the provider. If you don t hear from a customer contact representative within 2 business days, please call . EXAMINER Encounter Details Date Type Department Care Team (Latest Contact Info) Description 05/14/2024 My[facility] Medical Advice [facility] Internal Medicine [address] [address] Shalom Renteria MD [address] [place] [address] Alternating constipation and diarrhea (Primary Dx); [...] Sex Assigned at Female 02/16/2019 10:59 AM YARN EXAMINER Legal Sex Female 11:51 AM CDT Gender Identity Female 02/16/2019 10:59 AM YARN EXAMINER Sexual Orientation Bisexual 08/08/2023 1: 47 PM CDT documented as of this encounter Miscellaneous Notes * Telephone Encounter - Shalom Renteria MD - 05/17/2024 2:23 PM CST Referral signed. Thanks, Shalom Renteria MD EXAMINER documented in this encounter Plan of Treatment Upcoming Encounters Date Type Department Care Team (Late st Contact Info) Description 02/21/2025 12:30 PM YARN EXAMINER Therapy Visit [address] [place] [address] Alysa Chinchilla MD [facility] [address] [address] Monica Kellogg, PT 909 [place] [address] 03/21/2025 12:30 PM YARN EXAMINER Therapy Visit [address] [place] [address] Alysa Chinchilla MD [employer] [address] [place] [address] Valdez Monica Ni, PT [address] [place] [address] 05/02/2025 4:30 PM YARN EXAMINER Office Visit [facility] Internal Medicine [address] 4th [place] [phone] Shalom Renteria MD [address] [place] [address]67[address] 09/09/2025 2:45 PM CDT Office Visit [facility] [address] [phone] Malini Anderson PA-C [address] [place] [address] [phone] Scheduled Referrals Name Type Priority Associated Diagnoses Orde r Schedule Adult GI Handle Bender Referral - Consult Only Referral Routine: Next available opening Chronic nausea Alternating constipation and diarrhea Expected: 05/17/2024 (Approximate), Expires: 05/17/2025 documented as of this encounter Visit Diagnoses Diagnosis Alternating constipation and diarrhea- Primary Other symptoms involving digestive system Chronic nausea Nausea alone documented in this encounter Additional Health Concerns Assessment Noted Time PHQ-9 Depression Total Score: 5 04/07/19 25 2:20 PM YARN EXAMINER documented as of this encounter Care Teams Driver Operator Relationship Specialty Start Date End Date Shalom Renteria MD [address] [place] [address] PCP - General Internal Medicine 03/03/24 Devika Fleming MD [address] [place] [address] Neurology 10/30/21 Shalom Renteria MD 9 [place] [address] Assigned PCP 12/29/23 Melissa Melvin PA-C [address] [place] [address] Physician Finishing Operator Gastroenterology 03/03/24 Malini Anderson PA-C [address] [place] [address] Physician Finishing Operator 03/03/24 Melissa Melvin PA-C [address] [place] [address] Assigned Gastroenterology Provider 04/29/24 Malini Anderson PA-C [facility] [address] [place] [address] Assigned Dermatology Provider 09/27/24 documented as of this encounter
--- OUTSIDE RECORDS SUMMARY | 2025-02-14 00:33 | XMS_ITS | Encounter Summary ---
Author Organization [facility] Address [address] [place] [address] Care Team Providers Care Sales Force Administrator Name Role Phone Susie Vogt MD Primary Care Provider Devika Fleming MD Unavailable [phone] Devika Fleming MD Unavailable [phone] Alysa Chinchilla MD Primary Care Provider Shalom Renteria MD Unavailable Melissa Melvin-C Unavailable Shalom Renteria MD Primary Care Provider [phone] Malini Anderson-C Unavailable [phone] Melissa Melvin-C Unavailable Malini Anderson-C Unavailable [phone] Encounter Details Date Type Department Care Team (Late st Contact Info) Description 04/24/2022 [facility] [address] 3rd [place] [address] Devika Fleming MD [address] [place] [address] Social History Tobacco Use Types Packs/Day Years Used Date Smoking Tobacco: Never Smokeless Tobacco: Never Alcohol Use Standard Drinks/Week Comments Not Currently 0 (1 standard drink = 0.6 oz pur e alcohol) PHQ-2 Answer Date Recorded PHQ-2 Score 2 02/18/2022 Comments Unknown Sex and Gender Information Value Date Recorded Sex Assigned at Female 02/16/2019 10:59 AM SUSPENSION CORD TIER Legal Sex Female 11:51 AM CDT Gender Identity Female 02/16/2019 10:59 AM SUSPENSION CORD TIER Sexual Orientation Bisexual 08/08/2023 1: 47 PM CDT documented as of this encounter Plan of Treatment Upcoming Encounters Date Type Department Care Team (Late st Contact Info) Description 02/21/2025 12:30 PM SUSPENSION CORD TIER Therapy Visit [address] [address] Alysa Chinchilla MD [facility] [address] [address] Monica Kellogg, PT [address] [place] [address] 03/21/2025 12:30 PM SUSPENSION CORD TIER Therapy Visit [address] [address] Alysa Chinchilla MD [facility] [address] [address] Monica Kellogg, PT [address] [place] [address] 05/02/2025 4:30 PM SUSPENSION CORD TIER Office Visit [facility] Internal Medicine [address] [place] [phone] Shalom Renteria MD [address] [place] [address] 09/09/2025 2:45 PM CDT Office Visit [address] [phone] Malini Anderson PA-C [address] [address] documented as of this encounter Visit Diagnoses Not on filedocumented in this encounter Care Teams Sales Force Administrator Relationship Specialty Start Date End Date Susie Vogt MD PCP - General lens fabricating machine tender 12/29/18 08/07/[address] [facility] [address] [place] [address] PCP - General 08/08/23 03/02/24 Shalom Renteria MD [address] [place] [address] PCP - General Internal Medicine 03/03/24 Devika Fleming MD [address] [place] [address] Neurology 10/30/21 Devika Fleming MD [address] [place] [address] Assigned Neuroscience Provider 02/23/22 08/27/23 Shalom Renteria MD [address] [place] [address] Assigned PCP 12/29/23 Melissa Melvin PA-C [address] [place] [address] Physician Merchandise Deliverer Gastroenterology 03/03/24 Malini Anderson PA-C [address] [address] Physician Merchandise Deliverer 03/03/24 Melissa Melvin PA-C [address] [place] [address] Assigned Gastroenterology Provider 04/29/24 Malini Anderson PA-C [address] [address] Assigned Dermatology Provider 09/27/24 documented as of this encounter
--- OUTSIDE RECORDS SUMMARY | 2025-02-14 00:33 | XMS_ITS | Encounter Summary ---
Author Organization [place] Address [address] [place] [address] Care Team Providers Care Order Processing Manager Name Role Phone Susie Vogt MD Primary Care Provider [phone] Devika Fleming MD Unavailable [phone] Devika Fleming MD Unavailable [phone] Alysa Chinchilla MD Primary Care Provider [phone] Shalom Renteria MD Unavailable Melissa Melvin PA-C Unavailable Shalom Renteria MD Primary Care Provider [phone] Malini Anderson PA-C Unavailable [phone] Melissa Melvin PA-C Unavailable Malini Anderson PA-C Unavailable [phone] Encounter Details Date Type Department Care Team (Late st Contact Info) Description 10/07/2021 [facility] Initial Department [address] [place] [address] Lali Alonso Social History Tobacco Use Types Packs/Day Years Used Date Smoking Tobacco: Never Smokeless Tobacco: Never Alcohol Use Standard Drinks/Week Comments Not Currently 0 (1 standard drink = 0.6 oz pur e alcohol) PHQ-2 Answer Date Recorded PHQ-2 Score 2 02/22/2019 Comments Unknown Sex and Gender Information Value Date Recorded Sex Assigned at Female 02/16/2019 10:59 AM DRY DRUG WORKER Legal Sex Female 11:51 AM CDT Gender Identity Female 02/16/2019 10:59 AM DRY DRUG WORKER Sexual Orientation Bisexual 08/08/2023 1: 47 PM CDT documented as of this encounter Plan of Treatment Upcoming Encounters Date Type Department Care Team (Late st Contact Info) Description 02/21/2025 12:30 PM DRY DRUG WORKER Therapy Visit [address] [address] Alysa Chinchilla MD [facility] [address] [address] Monica Kellogg, PT [address] [place] [address] 03/21/2025 12:30 PM DRY DRUG WORKER Therapy Visit [address] [address] Alysa Chinchilla MD [facility] [address] [address] Monica Kellogg, PT [address] [place] [address] 05/02/2025 4:30 PM DRY DRUG WORKER Office Visit [facility] Internal Medicine [address] [place] [phone] Shalom Renteria MD [address] [place] [address] 09/09/2025 2:45 PM CDT Office Visit [address] [phone] Malini Anderson PA-C [address] [place] [address] documented as of this encounter Visit Diagnoses Not on filedocumented in this encounter Care Teams Order Processing Manager Relationship Specialty Start Date End Date Susie Vogt MD PCP - General earth moving machine operator 12/29/18 08/07/23 Alysa Chinchilla MD [facility] [id number] [place] [address] PCP - General 08/08/23 03/02/24 Shalom Renteria MD [address] [place] [address] PCP - General Internal Medicine 03/03/24 Devika Fleming MD [address] [place] [address] Neurology 10/30/21 Devika Fleming MD [address] [place] [address] Assigned Neuroscience Provider 02/23/22 08/27/23 Shalom Renteria MD [address] [place] [address] Assigned PCP 12/29/23 Melissa Melvin PA-C [address] [place] [address] Physician Net Application Architect Gastroenterology 03/03/24 Malini Anderson PA-C [address] [place] [address] 442960 Physician Net Application Architect 03/03/24 Melissa Melvin PA-C [address] [place] [address] Assigned Gastroenterology Provider 04/29/24 Malini Anderson PA-C [address] [place] [address] Assigned Dermatology Provider 09/27/24 documented as of this encounter
--- OUTSIDE RECORDS SUMMARY | 2025-02-14 00:33 | XMS_ITS | Encounter Summary ---
Author Organization [facility] Address [address] [place] [address] Care Team Providers Care Cured Meats Supervisor Name Role Phone Susie Vogt MD Primary Care Provider Devika Fleming MD Unavailable [phone] Devika Fleming MD Unavailable [phone] Alysa Chinchilla MD Primary Care Provider Shalom Renteria MD Unavailable Melissa Melvin-C Unavailable Shalom Renteria MD Primary Care Provider [phone] Malini Anderson-C Unavailable [phone] Melissa Melvin-Margarita Unavailable Malini Anderson-C Unavailable [phone] Reason for Visit * Reason Onset Date Comments Refill Request 10/12/2020 Encounter Details Date Type Department Care Team (Late st Contact Info) Description 10/12/2020 [facility] Neurology [address] [address] Lali Orr MD [address] [place] [address] [address] [place] [address] Refill Request Social History Tobacco Use Types Packs/Day Years Used Date Smoking Tobacco: Never Smokeless Tobacco: Never Alcohol Use Standard Drinks/Week Comments Not Currently 0 (1 standard drink = 0.6 oz pur e alcohol) PHQ-2 Answer Date Recorded PHQ-2 Score 2 02/22/2019 Comments Unknown Sex and Gender Information Value Date Recorded Sex Assigned at Female 02/16/2019 10:59 AM MOLD MAKER Legal Sex Female 11:51 AM CDT Gender Identity Female 02/16/2019 10:59 AM MOLD MAKER Sexual Orientation Bisexual 08/08/2023 1: 47 PM CDT documented as of this encounter Plan of Treatment Upcoming Encounters Date Type Department Care Team (Late st Contact Info) Description 02/21/2025 12:30 PM MOLD MAKER Therapy Visit [address] [address] Alysa Chinchilla MD [facility] [address] [address] Monica Kellogg, PT [address] [place] [address] 03/21/2025 12:30 PM MOLD MAKER Therapy Visit [address] [address] Alysa Chinchilla MD [facility] [address] [address] Monica Kellogg, PT [address] [place] [address] 05/02/2025 4:30 PM MOLD MAKER Office Visit [facility] Internal Medicine [address] [phone] Shalom Renteria MD [address] [place] [address] 09/09/2025 2:45 PM CDT Office Visit [facility] [place] [address] [phone] Malini Anderson PA-C [address] [address] documented as of this encounter Visit Diagnoses Diagnosis Chronic tension-type headache, intractable Chronic tension type headache Migraine with aura and without status migrainosus, not intractable Migraine with aura, without mention of intractable migraine without mention of status migrainosus documented in this encounter Care Teams Cured Meats Supervisor Relationship Specialty Start Date End Date Susie Vogt MD PCP - General control systems designer 12/29/18 08/07/23 Alysa Chinchilla MD [facility] [id number] [place] [address] PCP - General 08/08/23 03/02/24 Shalom Renteria MD [address] [place] [address] PCP - General Internal Medicine 03/03/24 Devika Fleming MD [address] [place] [address] Neurology 10/30/21 Devika Fleming MD [address] [place] [address] Assigned Neuroscience Provider 02/23/22 08/27/23 Shalom Renteria MD [address] [place] [address] Assigned PCP 12/29/23 Melissa Melvin PA-C [address] [place] [address] Physician Tobacco Sorter Gastroenterology 03/03/24 Malini Anderson PA-C [address] [place] [address] Physician Tobacco Sorter 03/03/24 Melissa Melvin PA-C [address] [place] [address] Assigned Gastroenterology Provider 04/29/24 Malini Anderson PA-C [address] [place] [address] Assigned Dermatology Provider 09/27/24 documented as of this encounter
--- OUTSIDE RECORDS SUMMARY | 2025-02-14 00:33 | XMS_ITS | Encounter Summary ---
Author Organization [place] Address [address] [place] [address] Care Team Providers Care Hydrographic Surveyor Name Role Phone Susie Vogt MD Primary Care Provider [phone] Devika Fleming MD Unavailable [phone] Devika Fleming MD Unavailable [phone] Alysa Chinchilla MD Primary Care Provider Shalom Renteria MD Unavailable Melissa Melvin-C Unavailable Shalom Renteria MD Primary Care Provider [phone] Malini Anderson-C Unavailable [phone] Melissa Melvin-Margarita Unavailable Malini Anderson-C Unavailable [phone] Reason for Visit * Reason Onset Date Comments Refill Request 10/07/2020 Encounter Details Date Type Department Care Team (Late st Contact Info) Description 10/07/2020 [facility] Neurology [address] [address] Lali Orr MD [address] [place] [address] [place] [address] Refill Request Social History Tobacco Use Types Packs/Day Years Used Date Smoking Tobacco: Never Smokeless Tobacco: Never Alcohol Use Standard Drinks/Week Comments Not Currently 0 (1 standard drink = 0.6 oz pur e alcohol) PHQ-2 Answer Date Recorded PHQ-2 Score 2 02/22/2019 Comments Unknown Sex and Gender Information Value Date Recorded Sex Assigned at Female 02/16/2019 10:59 AM PAVILION CUTTER Legal Sex Female 11:51 AM CDT Gender Identity Female 02/16/2019 10:59 AM PAVILION CUTTER Sexual Orientation Bisexual 08/08/2023 1: 47 PM CDT documented as of this encounter Plan of Treatment Upcoming Encounters Date Type Department Care Team (Late st Contact Info) Description 02/21/2025 12:30 PM PAVILION CUTTER Therapy Visit [address] [address] Alysa Chinchilla MD [facility] [address] [address] Monica Kellogg, PT [address] [place] [address] 03/21/2025 12:30 PM PAVILION CUTTER Therapy Visit [address] [address] Alysa Chinchilla MD [facility] [address] [address] Monica Kellogg, PT [address] [place] [address] 05/02/2025 4:30 PM PAVILION CUTTER Office Visit [facility] Internal Medicine [address] [phone] Shalom Renteria MD [address] [place] [address] 09/09/2025 2:45 PM CDT Office Visit [facility] [place] [address] [phone] Malini Anderson PA-C [address] [address] documented as of this encounter Visit Diagnoses Diagnosis Chronic tension-type headache, intractable Chronic tension type headache Migraine with aura and without status migrainosus, not intractable Migraine with aura, without mention of intractable migraine without mention of status migrainosus documented in this encounter Care Teams Hydrographic Surveyor Relationship Specialty Start Date End Date Susie Vogt MD PCP - General lap machine tender 12/29/18 08/07/23 Alysa Chinchilla MD [facility] [id number] [place] [address] PCP - General 08/08/23 03/02/24 Shalom Renteria MD [address] [place] [address] PCP - General Internal Medicine 03/03/24 Devika Fleming MD [address] [place] [address] Neurology 10/30/21 Devika Fleming MD [address] [place] [address] Assigned Neuroscience Provider 02/23/22 08/27/23 Shalom Renteria MD [address] [place] [address] Assigned PCP 12/29/23 Melissa Melvin PA-C [address] [place] [address] Physician Toll Transmission Worker Gastroenterology 03/03/24 Malini Anderson PA-C [address] [place] [address] Physician Toll Transmission Worker 03/03/24 Melissa Melvin PA-C [address] [place] [address] Assigned Gastroenterology Provider 04/29/24 Malini Anderson PA-C [address] [place] [address]410 Assigned Dermatology Provider 09/27/24 documented as of this encounter
--- OUTSIDE RECORDS SUMMARY | 2025-02-14 00:33 | XMS_ITS | Encounter Summary ---
Author Organization [place] Address [address] [place] [address] Care Team Providers Care Commercial Baking Teacher Name Role Phone Susie Vogt MD Primary Care Provider Devika Fleming MD Unavailable [phone] Devika Fleming MD Unavailable [phone] Alysa Chinchilla MD Primary Care Provider [phone] Shalom Renteria MD Unavailable Melissa Melvin-C Unavailable Shalom Renteria MD Primary Care Provider [phone] Malini Anderson-C Unavailable [phone] Melissa Melvin-C Unavailable Malini Anderson-C Unavailable [phone] Encounter Details Date Type Department Care Team (Late st Contact Info) Description 08/14/2022 [facility] Neurology Clinic [address] 3rd [place] [address] Devika Fleming MD [address] [place] [address] Social History Tobacco Use Types Packs/Day Years Used Date Smoking Tobacco: Never Smokeless Tobacco: Never Alcohol Use Standard Drinks/Week Comments Not Currently 0 (1 standard drink = 0.6 oz pur e alcohol) PHQ-2 Answer Date Recorded PHQ-2 Score 2 02/18/2022 Comments Unknown Sex and Gender Information Value Date Recorded Sex Assigned at Female 02/16/2019 10:59 AM ACCELERATOR TECHNICIAN Legal Sex Female 11:51 AM CDT Gender Identity Female 02/16/2019 10:59 AM ACCELERATOR TECHNICIAN Sexual Orientation Bisexual 08/08/2023 1: 47 PM CDT documented as of this encounter Plan of Treatment Upcoming Encounters Date Type Department Care Team (Late st Contact Info) Description 02/21/2025 12:30 PM ACCELERATOR TECHNICIAN Therapy Visit [address] [address] Alysa Chinchilla MD [facility] [address] [address] Monica Kellogg, PT [address] [place] [address] 03/21/2025 12:30 PM ACCELERATOR TECHNICIAN Therapy Visit [address] [address] Alysa Chinchilla MD [facility] [address] [address] Monica Kellogg, PT [address] [place] [address] 05/02/2025 4:30 PM ACCELERATOR TECHNICIAN Office Visit [facility] Internal Medicine [address] [place] [phone] Shalom Renteria MD [address] [place] [address] 09/09/2025 2:45 PM CDT Office Visit [address] [phone] Malini Anderson PA-C [address] [address] documented as of this encounter Visit Diagnoses Not on filedocumented in this encounter Care Teams Commercial Baking Teacher Relationship Specialty Start Date End Date Susie Vogt MD PCP - General rehab technician 12/29/18 08/07/23 Alysa Chinchilla MD [facility] [address] [place] [address] PCP - General 08/08/23 03/02/24 Shalom Renteria MD [address] [place] [address] PCP - General Internal Medicine 03/03/24 Devika Fleming MD [address] [place] [address] Neurology 10/30/21 Devika Fleming MD [address] [place] [address] Assigned Neuroscience Provider 02/23/22 08/27/23 Shalom Renteria MD [address] [place] [address] Assigned PCP 12/29/23 Melissa Melvin PA-C [address] [place] [address] Physician Steam Shovel Runner Gastroenterology 03/03/24 Malini Anderson PA-C [address] [address] Physician Steam Shovel Runner 03/03/24 Melissa Melvin PA-C [address] [place] [address] Assigned Gastroenterology Provider 04/29/24 Malini Anderson PA-C [address], [place] [address] Assigned Dermatology Provider 09/27/24 documented as of this encounter
--- OUTSIDE RECORDS SUMMARY | 2025-02-14 00:33 | XMS_ITS | Encounter Summary ---
Author Organization [place] Address [address] [place] [address] Care Team Providers Care Thermometer Maker Name Role Phone AjpuneetDevika MD Unavailable [phone] Shalom Renteria MD Unavailable Melissa Melvin PA-C Unavailable Shalom Renteria MD Primary Care Provider [phone] Malini Anderson PA-C Unavailable [phone] Melissa Melvin-Margarita Unavailable Malini Anderson-Margarita Unavailable [phone] Encounter Details Date Type Department Care Team (Late st Contact Info) Description 04/15/2024 [facility] Gastroenterology Clinic [address] [place] [address] [place] Social History Tobacco [...] Sex Assigned at Female 02/16/2019 10:59 AM VENTILATING EQUIPMENT INSTALLER Legal Sex Female 11:51 AM CDT Gender Identity Female 02/16/2019 10:59 AM VENTILATING EQUIPMENT INSTALLER Sexual Orientation Bisexual 08/08/2023 1: 47 PM CDT documented as of this encounter Plan of Treatment Upcoming Encounters Date Type Department Care Team (Late st Contact Info) Description 02/21/2025 12:30 PM VENTILATING EQUIPMENT INSTALLER Therapy Visit [facility] [address] [place] [address] [address] [place] [address] Alysa Chinchilla MD [facility] [address] [address] Monica Kellogg, PT [address]09 [place], [place] [address] 03/21/2025 12:30 PM VENTILATING EQUIPMENT INSTALLER Therapy Visit [facility] [address] [facility] [address] [place] [address] Alysa Chinchilla MD [facility] [address] [place] [address] Monica Kellogg, PT [address] [place] [address] 05/02/2025 4:30 PM VENTILATING EQUIPMENT INSTALLER Office Visit [facility] Internal Medicine [address] 4th [place] [phone] Shalom Renteria MD [address] [place] [address] 2824[address] 09/09/2025 2:45 PM CDT Office Visit [facility] [address] [phone] Malini Anderson PA-C [address] [place] [address] 475100 documented as of this encounter Visit Diagnoses Not on filedocumented in this encounter Additional Health Concerns Assessment Noted Time PHQ-9 Depression Total Score: 5 04/07/19 25 2:20 PM VENTILATING EQUIPMENT INSTALLER documented as of this encounter Care Teams Thermometer Maker Relationship Specialty Start Date End Date Shalom Renteria MD [address] [place] [address] PCP - General Internal Medicine 03/03/24 Devika Fleming MD [address] [place] [address] Neurology 10/30/21 Shalom Renteria MD 909 [place] [address] Assigned PCP 12/29/23 Melissa Melvin PA-C [address] [place] [address] Physician Special Education Coordinator Gastroenterology 03/03/24 Malini Anderson PA-C [address] [place] [address] Physician Special Education Coordinator 03/03/24 Melissa Melvin PA-C [address] [place] [address] Assigned Gastroenterology Provider 04/29/24 Malini Anderson PA-C [address] [place] [address] 885240 Assigned Dermatology Provider 09/27/24 documented as of this encounter
--- OUTSIDE RECORDS SUMMARY | 2025-02-14 00:33 | XMS_ITS | Encounter Summary ---
Author Organization [facility] Address [address] [place] [address] Care Team Providers Care Steelworker Name Role Phone AjpuneetDevika MD Unavailable [phone] Alysa Chinchilla MD Primary Care Provider [phone] Shalom Renteria MD Unavailable Melissa Melvin PA-C Unavailable Shalom Renteria MD Primary Care Provider [phone] Malini Anderson PA-C Unavailable [phone] Melissa Melvin PA-C Unavailable Malini Anderson PA-C Unavailable [phone] Encounter Details Date Type Department Care Team (Late st Contact Info) Description 12/29/2023 [facility] [address] [place] [address] [address] [place] [address] Kimberly Suh, PT [address] [place] [address] Social History Tobacco Use Types Packs/Day Years [...] Sex Assigned at Female 02/16/2019 10:59 AM RETAIL CUSTOMER SERVICE REPRESENTATIVE Legal Sex Female 11:51 AM CDT Gender Identity Female 02/16/2019 10:59 AM RETAIL CUSTOMER SERVICE REPRESENTATIVE Sexual Orientation Bisexual 08/08/2023 1: 47 PM CDT documented as of this encounter Plan of Treatment Upcoming Encounters Date Type Department Care Team (Late st Contact Info) Description 02/21/2025 12:30 PM RETAIL CUSTOMER SERVICE REPRESENTATIVE Therapy Visit [address] [address] Alysa Chinchilla MD [employer] [facility] [address] [address] Monica Kellogg, PT 909 [place] [address] 03/21/2025 12:30 PM RETAIL CUSTOMER SERVICE REPRESENTATIVE Therapy Visit [address] [address] Alysa Chinchilla MD [employer] [facility] [employer] 4700 [place] [address] Valdez Monica Ni, PT [address] [place] [address] 05/02/2025 4:30 PM RETAIL CUSTOMER SERVICE REPRESENTATIVE Office Visit [facility] Internal Medicine [address] 4th [place] [phone] Shalom Renteria MD [address] [place] [address] 293965 09/09/2025 2:45 PM CDT Office Visit [address] [phone] Malini Anderson PA-C [address] [place] [address] documented as of this encounter Visit Diagnoses Not on filedocumented in this encounter Additional Health Concerns Assessment Noted Time PHQ-9 Depression Total Score: 9 11/28/19 24 12:43 PM CDT documented as of this encounter Care Teams Steelworker Relationship Specialty Start Date End Date Alysa Chinchilla MD [employer] [address] [place] [address] PCP - General 08/08/23 03/02/24 Shalom Renteria MD [address] [place] [address] 845005 PCP - General Internal Medicine 03/03/24 Devika Fleming MD [address] [place] [address] 168395 Neurology 10/30/21 Shalom Renteria MD 9 [place] [address] Assigned PCP 12/29/23 Melissa Melvin PA-C [address] [place] [address] Physician Side Trimmer Gastroenterology 03/03/24 Malini Anderson PA-C [address] [place] [address] Physician Side Trimmer 03/03/24 Melissa Melvin PA-C [address] [place] [address] Assigned Gastroenterology Provider 04/29/24 Malini Anderson PA-C [address] [place] [address] Assigned Dermatology Provider 09/27/24 documented as of this encounter
--- OUTSIDE RECORDS SUMMARY | 2025-02-14 00:33 | XMS_ITS | Encounter Summary ---
Author Organization [facility] Address [address] [place] [address] Care Team Providers Care Chief Design Engineer Name Role Phone Susie Vogt MD Primary Care Provider Devika Fleimng MD Unavailable Devika Fleming MD Unavailable Devika Fleming MD Unavailable Alysa Chinchilla MD Primary Care Provider [phone] Shalom Renteria MD Unavailable Melissa Melvin-C Unavailable Shalom Renteria MD Primary Care Provider Malini Anderson-C Unavailable [phone] Melissa Melvin-C Unavailable Malini Anderson-C Unavailable [phone] Encounter Details Date Type Department Care Team (Late st Contact Info) Description 06/02/2019 [facility] Neurology [facility] 3rd [place] [address] Devika Fleming MD [address] [place] [address] Social History Tobacco Use Types Packs/Day Years Used Date Smoking Tobacco: Never Smokeless Tobacco: Never Alcohol Use Standard Drinks/Week Comments Not Currently 0 (1 standard drink = 0.6 oz pur e alcohol) PHQ-2 Answer Date Recorded PHQ-2 Score 2 02/22/2019 Comments Unknown Sex and Gender Information Value Date Recorded Sex Assigned at Female 02/16/2019 10:59 AM BUS PERSON DISHWASHER Legal Sex Female 11:51 AM CDT Gender Identity Female 02/16/2019 10:59 AM BUS PERSON DISHWASHER Sexual Orientation Bisexual 08/08/2023 1: 47 PM CDT documented as of this encounter Plan of Treatment Upcoming Encounters Date Type Department Care Team (Late st Contact Info) Description 02/21/2025 12:30 PM BUS PERSON DISHWASHER Therapy Visit [address] [address] Alysa Chinchilla MD [employer] [facility] [address] [address] Monica Kellogg, PT [address] [place] [address] 03/21/2025 12:30 PM BUS PERSON DISHWASHER Therapy Visit [address] [address] Alysa Chinchilla MD [employer] [facility] [address] [address] Monica Kellogg, PT [address] [place] [address] 05/02/2025 4:30 PM BUS PERSON DISHWASHER Office Visit [facility] Internal Medicine [address] [phone] Shalom Renteria MD [address] [place] [address] 09/09/2025 2:45 PM CDT Office Visit [facility] [address] [phone] Malini Anderson PA-C [address] [place] [address] documented as of this encounter Visit Diagnoses Not on filedocumented in this encounter Care Teams Chief Design Engineer Relationship Specialty Start Date End Date Susie Vogt MD PCP - General library information technician 12/29/18 08/07/23 Alysa Chinchilla MD [facility] [address] [place] [address] PCP - General 08/08/23 03/02/24 Shalom Renteria MD [address] [place] [address] PCP - General Internal Medicine 03/03/24 Devika Fleming MD [address] [place] [address] Assigned Neuroscience Provider 01/28/20 08/26/20 Devika Fleming MD [address] [place] [address] Neurology 10/30/21 Devika Fleming MD [address] [place] [address] Assigned Neuroscience Provider 02/23/22 08/27/23 Shalom Renteria MD [address] [place] [address], [place] [address] Assigned PCP 12/29/23 Melissa Melvin PA-C [address] [place] [address] Physician Violin Repairer Gastroenterology 03/03/24 Malini Anderson PA-C [address] [place] [address] Physician Violin Repairer 03/03/24 Melissa Melvin PA-C [address] [place] [address] Assigned Gastroenterology Provider 04/29/24 Malini Anderson PA-C [address] [place] [address] Assigned Dermatology Provider 09/27/24 documented as of this encounter
--- OUTSIDE RECORDS SUMMARY | 2025-02-14 00:33 | XMS_ITS | Encounter Summary ---
Author Organization [facility] Address [address] [place] [address] Care Team Providers Care Guest Relations Manager Name Role Phone Susie Vogt MD Primary Care Provider Devika Fleming MD Unavailable Devika Fleming MD Unavailable [phone] Devika Fleming MD Unavailable Alysa Chinchilla MD Primary Care Provider [phone] Shalom Renteria MD Unavailable Melissa Melvin-Margarita Unavailable Shalom Renteria MD Primary Care Provider [phone] Malini Anderson-C Unavailable [phone] Melissa Melvin-Margarita Unavailable Malini Anderson-Margarita Unavailable [phone] Reason for Visit * Reason Onset Date Comments Refill Request 04/07/2020 Encounter Details Date Type Department Care Team (Late st Contact Info) Description 04/07/2020 [facility] Neu[facility] [address] [address] Lali Orr MD [address] [place] [address] Refill Request Social History Tobacco Use Types Packs/Day Years Used Date Smoking Tobacco: Never Smokeless Tobacco: Never Alcohol Use Standard Drinks/Week Comments Not Currently 0 (1 standard drink = 0.6 oz pur e alcohol) PHQ-2 Answer Date Recorded PHQ-2 Score 2 02/22/2019 Comments Unknown Sex and Gender Information Value Date Recorded Sex Assigned at Female 02/16/2019 10:59 AM BIG DATA LEAD Legal Sex Female 11:51 AM CDT Gender Identity Female 02/16/2019 10:59 AM BIG DATA LEAD Sexual Orientation Bisexual 08/08/2023 1: 47 PM CDT documented as of this encounter Miscellaneous Notes * Telephone Encounter - Jo Parson CMA - 04/10/2020 8:53 AM BIG DATA LEAD Rx Authorization: ??? Requested Medication/ Dose: Nortriptyline 10MG caps ??? Date last refill ordered: 02/21/20 ??? Quantity ordered: 90 caps ??? # refills: ??? Date of last clinic visit with ordering provider: 02/22/19 ??? Date of next clinic visit with ordering provider: F/U 1 year ??? All pertinent protocol data (lab date/result): ??? Include pertinent information from patients message: DATA LEAD documented in this encounter Plan of Treatment Upcoming Encounters Date Type Department Care Team (Late st Contact Info) Description 02/21/2025 12:30 PM BIG DATA LEAD Therapy Visit [address] [address] Alysa Chinchilla MD [facility] [address] [address] Monica Kellogg, PT 909 [place] [address] 03/21/2025 12:30 PM BIG DATA LEAD Therapy Visit [address] [address] Alysa Chinchilla MD [employer] [facility] [employer] 4700 [place] [address] Valdez Monica Ni, PT 909 [place] [address] 05/02/2025 4:30 PM BIG DATA LEAD Office Visit [facility] Internal Medicine [address] 4th [place] [phone] Shalom Renteria MD [address] [place] [address] 213275 09/09/2025 2:45 PM CDT Office Visit [address] [phone] Malini Anderson PA-C [address] [place] [address] documented as of this encounter Visit Diagnoses Diagnosis Chronic tension-type headache, intractable Chronic tension type headache Migraine with aura and without status migrainosus, not intractable Migraine with aura, without mention of intractable migraine without mention of status migrainosus documented in this encounter Care Teams Guest Relations Manager Relationship Specialty Start Date End Date Susie Vogt MD PCP - General flanging machine operator 12/29/18 08/07/23 Alysa Chinchilla MD [employer] [facility] [employer] [address] [place] [address] PCP - General 08/08/23 03/02/24 Shalom Renteria MD [address] [place] [address] PCP - General Internal Medicine 03/03/24 Devika Fleming MD [address] [place] [address] Assigned Neuroscience Provider 01/28/20 08/26/20 Devika Fleming MD [address] [place] [address] MD Neurology 10/30/21 Devika Fleming MD [address] [place] [address] Assigned Neuroscience Provider 02/23/22 08/27/23 Shalom Renteria MD [address] [place] [address] Assigned PCP 12/29/23 Melissa Melvin PA-C [address] [address] [place] [address] Physician Cubing Machine Tender Gastroenterology 03/03/24 Malini Anderson PA-C [address] [place] [address] Physician Cubing Machine Tender 03/03/24 Melissa Melvin PA-C [address] [place] [address] Assigned Gastroenterology Provider 04/29/24 Malini Anderson PA-C [address] [place] [address] Assigned Dermatology Provider 09/27/24 documented as of this encounter
--- OUTSIDE RECORDS SUMMARY | 2025-02-14 00:33 | XMS_ITS | Encounter Summary ---
Author Organization [facility] Address [address] [place] [address] Care Team Providers Care Boiler Attendant Name Role Phone Susie Vogt MD Primary Care Provider Devika Fleming MD Unavailable [phone] Devika Fleming MD Unavailable [phone] Alysa Chinchilla MD Primary Care Provider Shalom Renteria MD Unavailable Melissa Melvin-C Unavailable Shalom Renteria MD Primary Care Provider [phone] Maliin Anderson-C Unavailable [phone] Melissa Melvin-C Unavailable Malini Anderson-C Unavailable [phone] Encounter Details Date Type Department Care Team (Late st Contact Info) Description 04/10/2022 [facility] [address] 3rd [place] [address] Devika Fleming MD [address] [place] [address] Social History Tobacco Use Types Packs/Day Years Used Date Smoking Tobacco: Never Smokeless Tobacco: Never Alcohol Use Standard Drinks/Week Comments Not Currently 0 (1 standard drink = 0.6 oz pur e alcohol) PHQ-2 Answer Date Recorded PHQ-2 Score 2 02/18/2022 Comments Unknown Sex and Gender Information Value Date Recorded Sex Assigned at Female 02/16/2019 10:59 AM FREIGHT BROKER Legal Sex Female 11:51 AM CDT Gender Identity Female 02/16/2019 10:59 AM FREIGHT BROKER Sexual Orientation Bisexual 08/08/2023 1: 47 PM CDT documented as of this encounter Plan of Treatment Upcoming Encounters Date Type Department Care Team (Late st Contact Info) Description 02/21/2025 12:30 PM FREIGHT BROKER Therapy Visit [address] [address] Alysa Chinchilla MD [employer] [facility] [address] [address] Monica Kellogg, PT [address] [place] [address] 03/21/2025 12:30 PM FREIGHT BROKER Therapy Visit [address] [address] Alysa Chinchilla MD [facility] [address] [address] Monica Kellogg, PT [address] [place] [address] 05/02/2025 4:30 PM FREIGHT BROKER Office Visit [facility] Internal Medicine [address] [place] [phone] Shalom Renteria MD [address] [place] [address] 09/09/2025 2:45 PM CDT Office Visit [address] [phone] Malini Anderson PA-C [address] [address] documented as of this encounter Visit Diagnoses Not on filedocumented in this encounter Care Teams Boiler Attendant Relationship Specialty Start Date End Date Susie Vogt MD PCP - General instruments sales representative 12/29/18 08/07/23 Alysa Chinchilla MD [facility] [address] [place] [address] PCP - General 08/08/23 03/02/24 Shalom Renteria MD [address] [place] [address] PCP - General Internal Medicine 03/03/24 Devika Fleming MD [address] [place] [address] Neurology 10/30/21 Devika Fleming MD [address] [place] [address] Assigned Neuroscience Provider 02/23/22 08/27/23 Shalom Renteria MD [address] [place] [address] Assigned PCP 12/29/23 Melissa Melvin PA-C [address] [place] [address] Physician Craft Demonstrator Gastroenterology 03/03/24 Malini Anderson PA-C [address] [address] Physician Craft Demonstrator 03/03/24 Melissa Melvin PA-C [address] [place] [address] Assigned Gastroenterology Provider 04/29/24 Malini Anderson PA-C [address] [address] Assigned Dermatology Provider 09/27/24 documented as of this encounter
--- OUTSIDE RECORDS SUMMARY | 2025-02-14 00:33 | XMS_ITS | Encounter Summary ---
Author Organization [facility] Address [address] [place] [address] Care Team Providers Care Sales Representative Leather Goods Name Role Phone Susie Vogt MD Primary Care Provider Devika Fleming MD Unavailable Devika Fleming MD Unavailable [phone] Devika Fleming MD Unavailable Alysa Chinchilla MD Primary Care Provider [phone] Shalom Renteria MD Unavailable Melissa Melvin-C Unavailable Shalom Renteria MD Primary Care Provider [phone] Malini Anderson-C Unavailable [phone] Melissa Melvin-C Unavailable Malini Anderson-C Unavailable [phone] Reason for Visit * Reason Onset Date Comments Refill Request 07/17/2019 Encounter Details Date Type Department Care Team (Late st Contact Info) Description 07/17/2019 [facility] [address] [facility] 3rd [place] [address] Devika Fleming MD 909 [place] [address] Refill Request Social History Tobacco Use Types Packs/Day Years Used Date Smoking Tobacco: Never Smokeless Tobacco: Never Alcohol Use Standard Drinks/Week Comments Not Currently 0 (1 standard drink = 0.6 oz pur e alcohol) PHQ-2 Answer Date Recorded PHQ-2 Score 2 02/22/2019 Comments Unknown Sex and Gender Information Value Date Recorded Sex Assigned at Female 02/16/2019 10:59 AM DECKHAND MAINTENANCE Legal Sex Female 11:51 AM CDT Gender Identity Female 02/16/2019 10:59 AM DECKHAND MAINTENANCE Sexual Orientation Bisexual 08/08/2023 1: 47 PM CDT documented as of this encounter Plan of Treatment Upcoming Encounters Date Type Department Care Team (Late st Contact Info) Description 02/21/2025 12:30 PM DECKHAND MAINTENANCE Therapy Visit [address] [address] Alysa Chinchilla MD [facility] [address] [address] Monica Kellogg, PT [address] [place] [address] 03/21/2025 12:30 PM DECKHAND MAINTENANCE Therapy Visit [address] [address] Alysa Chinchilla MD [facility] [address] [address] Monica Kellogg, PT [address] [place] [address] 05/02/2025 4:30 PM DECKHAND MAINTENANCE Office Visit [facility] Internal Medicine [address] 4th [place] [phone] Shalom Renteria MD [address] [place] [address] 09/09/2025 2:45 PM CDT Office Visit [facility] [address] [phone] Malini Anderson PA-C [address] [address] documented as of this encounter Visit Diagnoses Diagnosis Chronic tension-type headache, intractable Chronic tension type headache Migraine with aura and without status migrainosus, not intractable Migraine with aura, without mention of intractable migraine without mention of status migrainosus documented in this encounter Care Teams Sales Representative Leather Goods Relationship Specialty Start Date End Date Susie Vogt MD PCP - General operations examiner 12/29/18 08/07/23 Alysa Chinchilla MD [facility] [address] [place] [address] PCP - General 08/08/23 03/02/24 Shalom Renteria MD [address] [place] [address] PCP - General Internal Medicine 03/03/24 Devika Fleming MD [address] [place] [address] Assigned Neuroscience Provider 01/28/20 08/26/20 Devika Fleming MD [address] [place] [address] Neurology 10/30/21 Devika Fleming MD [address] [place] [address] Assigned Neuroscience Provider 02/23/22 08/27/23 Shalom Renteria MD 909 [place] [address] Assigned PCP 12/29/23 Melissa Melvin PA-C [address] [place] [address] Physician Obedience Trainer Gastroenterology 03/03/24 Malini Anderson PA-C [address] [place] [address] Physician Obedience Trainer 03/03/24 Melissa Melvin PA-C [address] [address] [place] [address] Assigned Gastroenterology Provider 04/29/24 Malini Anderson PA-C [address] [place] [address] Assigned Dermatology Provider 09/27/24 documented as of this encounter
--- OUTSIDE RECORDS SUMMARY | 2025-02-14 00:33 | XMS_ITS | Encounter Summary ---
Author Organization [facility] Address [address] [place] [address] Care Team Providers Care Sales Project Manager Name Role Phone AjpuneetDevika MD Unavailable [phone] Alysa Chinchilla MD Primary Care Provider [phone] Shalom Renteria MD Unavailable Melissa Melvin-C Unavailable Shalom Renteria MD Primary Care Provider Malini Anderson PA-C Unavailable [phone] Melissa Melvin PA-C Unavailable Malini Anderson-C Unavailable [phone] Encounter Details Date Type Department Care Team (Late st Contact Info) Description 11/28/2023 [facility] Medical Advice [facility] Internal Medicine [address] [address] Shalom Renteria MD [address] [place] [address] Social History Tobacco Use Types Packs/Day [...] Sex Assigned at Female 02/16/2019 10:59 AM ISOBUTYLENE OPERATOR CHIEF Legal Sex Female 11:51 AM CDT Gender Identity Female 02/16/2019 10:59 AM ISOBUTYLENE OPERATOR CHIEF Sexual Orientation Bisexual 08/08/2023 1: 47 PM CDT documented as of this encounter Plan of Treatment Upcoming Encounters Date Type Department Care Team (Late st Contact Info) Description 02/21/2025 12:30 PM ISOBUTYLENE OPERATOR CHIEF Therapy Visit [address] [address] Alysa Chinchilla MD [facility] [address] [address] Monica Kellogg, PT 909 [place] [address] 03/21/2025 12:30 PM ISOBUTYLENE OPERATOR CHIEF Therapy Visit [address] [address] Alysa Chinchilla MD [employer] [facility] [employer] 4700 [place] [address] Valdez Monica Ni, PT [address] [place] [address] 05/02/2025 4:30 PM ISOBUTYLENE OPERATOR CHIEF Office Visit [facility] Internal Medicine [address] 4th [place] [phone] Shalom Renteria MD [address] [place] [address] 09/09/2025 2:45 PM CDT Office Visit [facility] [address] [phone] Malini Anderson PA-C [address] [place] [address] documented as of this encounter Visit Diagnoses Not on filedocumented in this encounter Additional Health Concerns Assessment Noted Time PHQ-9 Depression Total Score: 9 11/28/19 24 12:43 PM CDT documented as of this encounter Care Teams Sales Project Manager Relationship Specialty Start Date End Date Alysa Chinchilla MD [email or web address] [address] [place] [address] PCP - General 08/08/23 03/02/24 Shalom Renteria MD [address] [place] [address] 998485 PCP - General Internal Medicine 03/03/24 Devika Fleming MD [address] [place] [address] 787395 Neurology 10/30/21 Shalom Renteria MD [address] [place] [address] Assigned PCP 12/29/23 Melissa Melvin PA-C [address] [address] [place] [address] Physician Supervisor Sewer Maintenance Gastroenterology 03/03/24 Malini Anderson PA-C [address] [place] [address] Physician Supervisor Sewer Maintenance 03/03/24 Melissa Melvin PA-C [address] [address] [place] [address] Assigned Gastroenterology Provider 04/29/24 Malini Anderson PA-C [address] [place] [address] Assigned Dermatology Provider 09/27/24 documented as of this encounter
--- OUTSIDE RECORDS SUMMARY | 2025-02-14 00:33 | XMS_ITS | Clinical Summary ---
Author Organization [facility] Address [address] [place] [address] Care Team Providers Care Veneer Layer Name Role Phone AjpuneetDevika MD Unavailable [phone] Shalom Renteria MD Unavailable Melissa Melvin PA-C Unavailable Shalom Renteria MD Primary Care Provider [phone] Malini Anderson PA-C Unavailable [phone] Melissa Melvin PA-C Unavailable Malini Anderson PA-C Unavailable [phone] Allergies Active Allergy Reactions Criticality Noted Date [...] Description 01/17/2025 11:00 AM CDT Therapy Visit [address] [address] Alysa Chinchilla MD Gerardi, Meghan Marie, PT Chase-Danlos syndrome (Primary Dx) 01/17/2025 Travel 01/14/2025 Travel 12/20/2024 2:00 PM CDT Therapy Visit [address] [address] Alysa Chinchilla MD Gerardi, Meghan Marie, PT Chase-Danlos syndrome (Primary Dx) 12/20/2024 Travel 12/03/2024 MyC Medical Advice [facility] Internal [facility] [address] [address] Shalom Renteria MD 12/03/2024 Results Follow-Up [facility] [address] [address] Rachel Lord, ISIAH from Last [...] in an abandoned building, in an overnight [place] [facility] [place], or couch-surfing.) Yes 11/23/2023 Are you worried [...] Assigned at Female 02/16/2019 10:59 AM MANAGER FAMILY Legal Sex Female 11:51 AM CDT Gender Identity Female 02/16/2019 10:59 AM MANAGER FAMILY Sexual Orientation Bisexual 08/08/2023 1: 47 PM CDT Last Filed Vital Signs Vital Sign Reading Time Taken Comments Blood Pressure 153/103 04/06/2024 2:40 PM MANAGER FAMILY Pulse 100 04/06/2024 2:40 PM MANAGER FAMILY Temperature 36.6 C (97.9 F) 02/28/2024 10:50 AM MANAGER FAMILY Respiratory Rate 18 02/28/2024 10:50 AM MANAGER FAMILY Oxygen Saturation 99% 04/06/2024 2:04 PM MANAGER FAMILY Inhaled Oxygen Concentration - - Weight 109.8 kg (242 lb) 04/06/2024 2:04 PM MANAGER FAMILY Height 170.2 cm (5' 7.01) 02/28/2024 10:50 AM C Body Mass Index 37.89 02/28/2024 10:50 AM MANAGER FAMILY Plan of Treatment Upcoming Encounters Date Type Department Care Team (Late st Contact Info) Description 02/21/2025 12:30 PM MANAGER FAMILY Therapy Visit [address] [address] Alysa Chinchilla MD [employer] [address] [address] Monica Kellogg, PT [address] [place] [address] 03/21/2025 12:30 PM MANAGER FAMILY Therapy Visit [address] [address] Alysa Chinchilla MD [facility] [address] [address] Monica Kellogg, PT [address] [place] [address] 05/02/2025 4:30 PM MANAGER FAMILY Office Visit [facility] Internal Medicine [address] 4th [place] [phone] Shalom Renteria MD [address] [place] [address] 09/09/2025 2:45 PM CDT Office Visit [facility] [address] [phone] Malini Anderson PA-C [address] [address]6050 Health Maintenance Due Date Last Done Comments [...] COMPREHENSIVE METABOLIC PANEL Routine 04/06/2024 2:50 PM MANAGER FAMILY Abdominal pain, unspecified abdominal location Loose stools LIPID REFLEX TO DIRECT LDL PANEL Routine 02/28/2024 9:16 AM MANAGER FAMILY Dyslipidemia PAP SMEAR - HIM PATIENT REPORTED Routine 12/06/2022 from Last 3 Months or Most Recently Relevant to Health Maintenance Results * Colonoscopy - HIM Scan (12/01/2024 12:12 PM CDT) Narrative Procedure Note Natali Mahoney MD - 12/01/2024 12:12 PM CDT Images from the original note were not included. [facility] [address] [place] [address], [address], [place] [address] Patient Name: Linda Valente Gender: Female Exam Date: 12/01/2024 Visit Number: [id number] Age: 39 Years Date of : 1985 Attending MD: Natali Mahoney MD Medical Record#: [id number] Procedure: Colonoscopy Indications: Nausea, irregular bowel habits, elevated fecal calprotectin Referring MD: Referral Self Primary MD: Shalom Renteria MD Medications: Admitting Medications: 0.9% Normal Saline at [facility] Ondansetron Hydrochloride (Zofran) given 4mg by IV [...] signed by: Kenn Sanchez MD Interpreted at [facility], [address] [place] [id number] Orders Office Procedures: Service Comments Timeframe Assessment [...] AST, Total. Bili, TP) (04/06/2024 2:50 PM MANAGER FAMILY) Sodium 143 135 - 145 mmol/L 04/06/2024 3:14 PM MANAGER FAMILY [facility] Potassium 4.0 3.4 - 5.3 mmol/L 04/06/2024 3:14 PM MANAGER FAMILY [facility] Carbon Dioxide (CO2) 26 22 - 29 mmol/L 04/06/2024 3:14 PM MANAGER FAMILY [facility] Anion Gap 12 7 - 15 mmol/L 04/06/2024 3:14 PM MANAGER FAMILY [facility] Urea Nitrogen 10.4 6.0 - 20.0 mg/dL 04/06/2024 3:14 PM MANAGER FAMILY [facility] Creatinine 0.86 0.51 - 0.95 mg/dL 04/06/2024 3:14 PM MANAGER FAMILY [facility] GFR Estimate 88 >60 mL/min/1.7 3m2 04/06/2024 3:14 PM MANAGER FAMILY [facility] Comment:eGFR calculated usin 2020 CKD-EPI equation. Calcium 8.9 8.8 - 10.4 mg/dL 04/06/2024 3:14 PM MANAGER FAMILY [facility] Comment:Reference intervals for this test were updated on 10/21/2023 to reflect our healthy population more accurately. There may be differences in the flagging of prior results with similar values performed with this method. Those prior results can be interpreted in the context of the updated reference intervals. Chloride 105 98 - 107 mmol/L 04/06/2024 3:14 PM MANAGER FAMILY [facility] Glucose 115(H) 70 - 99 mg/dL 04/06/2024 3:14 PM MANAGER FAMILY [facility] Alkaline Phosphatase 99 40 - 150 U/L 04/06/2024 3:14 PM MANAGER FAMILY [facility] AST 33 0 - 45 U/L 04/06/2024 3:14 PM MANAGER FAMILY [facility] ALT 45 0 - 50 U/L 04/06/2024 3:14 PM MANAGER FAMILY [facility] Protein Total 7.3 6.4 - 8.3 g/dL 04/06/2024 3:14 PM MANAGER FAMILY [facility] Albumin 4.3 3.5 - 5.2 g/dL 04/06/2024 3:14 PM MANAGER FAMILY [facility] Bilirubin Total 0.4 <=1.2 mg/dL 04/06/2024 3:14 PM MANAGER FAMILY [facility] Blood STRUCTURE OF LEFT UPPER LIMB / Unknown Venipuncture / Unknown 04/06/2024 2:50 PM MANAGER FAMILY 04/06/2024 2:53 PM MANAGER FAMILY us Melissa Melvin PA-C LAB - BLOOD ORDERABLES Final Res ult LABORATORY [facility] - [address], [place] [address] * (ABNORMAL) Lipid panel reflex to direct LDL Non-fasting (02/28/2024 9:16 AM MANAGER FAMILY) Cholesterol 234(H) <200 mg/dL 02/28/2024 9:52 AM MANAGER FAMILY [facility] Triglycerides 272(H) <150 mg/dL 02/28/2024 9:52 AM MANAGER FAMILY [facility] Direct Measure HDL 31(L) >=50 mg/dL 02/28/2024 9:52 AM MANAGER FAMILY [facility] LDL Cholesterol Calculated 149(H) <100 mg/dL 02/28/2024 9:52 AM MANAGER FAMILY [facility] Non HDL Cholesterol 203(H) <130 mg/dL 02/28/2024 9:52 AM MANAGER FAMILY [facility] Patient Fasting > 8hrs? Yes 02/28/2024 9:52 AM MANAGER FAMILY [facility] Blood STRUCTURE OF LEFT UPPER LIMB / Unknown Venipuncture / Unknown 02/28/2024 9:16 AM MANAGER FAMILY 02/28/2024 9:17 AM MANAGER FAMILY Narrative [facility] - 02/28/2024 9:52 AM MANAGER FAMILY Cholesterol Desirable: < 200 mg/dL Borderline High: [...] LAB - BLOOD ORDERABLES Final Res ult [facility] - [address] 1st [place] [address] * PAP Smear - HIM Patient Reported (12/06/2022) PAP Smear - HIM Patient Reported Unknown EXTERNAL LAB 12/06/2022 Narrative EXTERNAL LAB - 12/06/2022 SEE ENCOUNTER DATED 11/28/23 us Patient Reported LABORATORY Final Result EXTERNAL LAB External Lab from Last 3 Months or Most Recently Relevant to Health Maintenance Insurance [facility] OUT OF STATE BCBS OUT OF STATE Care Teams Veneer Layer Relationship Specialty Start Date End Date Shalom Renteria MD [address] [place] [address] PCP - General Internal Medicine 03/03/24 Devika Fleming MD [address] [place] [phone] Neurology 10/30/21 Shalom Renteria MD [address] [place] [address] Assigned PCP 12/29/23 Melissa Melvni PA-C [address] [place] [address] Physician Computer Security Coordinator Gastroenterology 03/03/24 Malini Anderson PA-C [address] [place] [address] Physician Computer Security Coordinator 03/03/24 Melissa Melvin PA-C [address] [address] [address] Assigned Gastroenterology Provider 04/29/24 Malini Anderson PA-C [address] [place] [address] Assigned Dermatology Provider 09/27/24
--- OUTSIDE RECORDS SUMMARY | 2025-02-14 00:33 | XMS_ITS | Encounter Summary ---
Author Organization [facility] Address [address] [place] [address] Care Team Providers Care Quarantine Officer Name Role Phone Susie Vogt MD Primary Care Provider [phone] Devika Fleming MD Unavailable [phone] Devika Fleming MD Unavailable [phone] Alysa Chinchilla MD Primary Care Provider [phone] Shalom Renteria MD Unavailable Melissa Melvin PA-C Unavailable Shalom Renteria MD Primary Care Provider [phone] Malini Anderson PA-C Unavailable [phone] Melissa Melvin PA-C Unavailable Malini Anderson PA-C Unavailable [phone] Encounter Details Date Type Department Care Team (Late st Contact Info) Description 10/16/2020 [facility] Medical Advice [facility] [address] [place] [address] Susi Gloria, ISIAH Social History Tobacco Use Types Packs/Day Years Used Date Smoking Tobacco: Never Smokeless Tobacco: Never Alcohol Use Standard Drinks/Week Comments Not Currently 0 (1 standard drink = 0.6 oz pur e alcohol) PHQ-2 Answer Date Recorded PHQ-2 Score 2 02/22/2019 Comments Unknown Sex and Gender Information Value Date Recorded Sex Assigned at Female 02/16/2019 10:59 AM CARRIAGE RIDER Legal Sex Female 11:51 AM CDT Gender Identity Female 02/16/2019 10:59 AM CARRIAGE RIDER Sexual Orientation Bisexual 08/08/2023 1: 47 PM CDT documented as of this encounter Plan of Treatment Upcoming Encounters Date Type Department Care Team (Late st Contact Info) Description 02/21/2025 12:30 PM CARRIAGE RIDER Therapy Visit [address] [address] Alysa Chinchilla MD [employer] [facility] [employer] [address] [place] [address] Monica Kellogg, PT [address] [place] [address] 03/21/2025 12:30 PM CARRIAGE RIDER Therapy Visit [address] [address] Alysa Chinchilla MD [employer] [facility] [address] [address] Monica Kellogg, PT [address] [place] [address] 05/02/2025 4:30 PM CARRIAGE RIDER Office Visit [facility] Internal Medicine [address] 4th [place] [phone] Shalom Renteria MD [address] [place] [phone] 09/09/2025 2:45 PM CDT Office Visit [address] [phone] Malini Anderson PA-C [address] [place] [address] documented as of this encounter Visit Diagnoses Not on filedocumented in this encounter Care Teams Quarantine Officer Relationship Specialty Start Date End Date Susie Vogt MD PCP - General tooling engineering tech 12/29/18 08/07/23 Alysa Chinchilla MD [facility] [address] [place] [address] PCP - General 08/08/23 03/02/24 Shalom Renteria MD [address] [place] [address] PCP - General Internal Medicine 03/03/24 Devika Fleming MD [address] [place] [address] Neurology 10/30/21 Devika Fleming MD [address] [place] [address] Assigned Neuroscience Provider 02/23/22 08/27/23 Shalom Renteria MD [address] [place] [address] Assigned PCP 12/29/23 Melissa Melvin PA-C [address] [place] [address] Physician Film Tests Checker Gastroenterology 03/03/24 Malini Anderson PA-C [address], [place] [address] Physician Film Tests Checker 03/03/24 Melissa Melvin PA-C [address] [place] [address] Assigned Gastroenterology Provider 04/29/24 Malini Anderson PA-C [address] [place] [address] Assigned Dermatology Provider 09/27/24 documented as of this encounter
[2025-02-14] MEDS: HEPARIN 500 UNIT/5 ML SYRINGE IVF (01:16)
== END 2025-02-14 01:30 | disposition home or self-care (01) ==
PROVIDERS: Emergency Provider Family Medicine; PCP Family Medicine
DX: G90.A Postural orthostatic tachycardia syndrome [POTS] (principal)
CPT/HCPCS: 93005; 96361; 96374; 99283; 99284; J1642; J2060; J7030